=== PATIENT | female | born 1970 | race Caucasian/White ===

== ENCOUNTER → 2017-08-01 14:32 | Outpatient (CLI) | payer MEDICAID, SELFPAY ==
[2017-08-01 15:17] LABS: Amphetamine/Metha Screen,Urine Negative ng/mL (<1000); Barbiturates Screen,Urine Negative ng/mL (<200); Benzodiazepines Screen,Urine Negative ng/mL (200); Cannabinoid Screen,Urine Negative ng/mL (<50); Cocaine Screen,Urine Negative ng/g (<300); Methadone Screen,Urine Negative ng/mL (<300); Opiate Screen,Urine Positive ng/mL (<300); Phencyclidine Screen,Urine Negative ng/mL (<25)
== END ==
PROVIDERS: Visit Provider Emergency Medicine
DX: M54.9 Dorsalgia, unspecified (principal); F41.9 Anxiety disorder, unspecified
CPT/HCPCS: 80305

== ENCOUNTER → 2017-08-31 09:32 | Outpatient (REF) | payer MEDICAID, SELFPAY ==
[2017-08-31 15:34] LABS: Amphetamine/Metha Screen,Urine Negative ng/mL (<1000); Barbiturates Screen,Urine Negative ng/mL (<200); Benzodiazepines Screen,Urine Negative ng/mL (200); Cannabinoid Screen,Urine Negative ng/mL (<50); Cocaine Screen,Urine Negative ng/g (<300); Methadone Screen,Urine Negative ng/mL (<300); Opiate Screen,Urine Positive ng/mL (<300); Phencyclidine Screen,Urine Negative ng/mL (<25)
== END ==
LOC: LAB 09:32
PROVIDERS: Visit Provider Emergency Medicine
DX: Z79.899 Other long term (current) drug therapy (principal)
CPT/HCPCS: 80305

== ENCOUNTER → 2017-09-19 11:12 | Outpatient (REF) | payer MEDICAID, SELFPAY ==
[2017-09-19 15:49] LABS: Amphetamine/Metha Screen,Urine Negative ng/mL (<1000); Barbiturates Screen,Urine Negative ng/mL (<200); Benzodiazepines Screen,Urine Negative ng/mL (200); Cannabinoid Screen,Urine Negative ng/mL (<50); Cocaine Screen,Urine Negative ng/g (<300); Methadone Screen,Urine Negative ng/mL (<300); Opiate Screen,Urine Positive ng/mL (<300); Phencyclidine Screen,Urine Negative ng/mL (<25)
== END ==
LOC: LAB 11:12
PROVIDERS: Visit Provider Emergency Medicine
DX: Z79.899 Other long term (current) drug therapy (principal)
CPT/HCPCS: 80305

== ENCOUNTER → 2017-10-17 09:17 | Outpatient (REF) | payer MEDICAID, SELFPAY ==
[2017-10-17 18:54] LABS: Amphetamine/Metha Screen,Urine Negative ng/mL (<1000); Barbiturates Screen,Urine Negative ng/mL (<200); Benzodiazepines Screen,Urine Negative ng/mL (200); Cannabinoid Screen,Urine Negative ng/mL (<50); Cocaine Screen,Urine Negative ng/g (<300); Methadone Screen,Urine Negative ng/mL (<300); Opiate Screen,Urine Positive ng/mL (<300); Phencyclidine Screen,Urine Negative ng/mL (<25)
== END ==
LOC: LAB 09:17
PROVIDERS: Visit Provider Emergency Medicine
DX: Z79.899 Other long term (current) drug therapy (principal)
CPT/HCPCS: 80305

== ENCOUNTER → 2017-11-14 13:51 | Outpatient (REF) | payer MEDICAID, SELFPAY ==
[2017-11-14 15:07] LABS: Amphetamine/Metha Screen,Urine Negative ng/mL (<1000); Barbiturates Screen,Urine Negative ng/mL (<200); Benzodiazepines Screen,Urine Negative ng/mL (200); Cannabinoid Screen,Urine Negative ng/mL (<50); Cocaine Screen,Urine Negative ng/g (<300); Methadone Screen,Urine Negative ng/mL (<300); Opiate Screen,Urine Positive ng/mL (<300); Phencyclidine Screen,Urine Negative ng/mL (<25)
== END ==
LOC: LAB 13:51
PROVIDERS: Visit Provider Emergency Medicine
DX: Z79.899 Other long term (current) drug therapy (principal)
CPT/HCPCS: 80305

== ENCOUNTER → 2017-12-13 11:21 | Outpatient (REF) | payer MEDICAID, SELFPAY ==
[2017-12-14 18:06] LABS: Amphetamine/Metha Screen,Urine Negative ng/mL (<1000); Barbiturates Screen,Urine Negative ng/mL (<200); Benzodiazepines Screen,Urine Negative ng/mL (200); Cannabinoid Screen,Urine Negative ng/mL (<50); Cocaine Screen,Urine Negative ng/g (<300); Methadone Screen,Urine Negative ng/mL (<300); Opiate Screen,Urine Positive ng/mL (<300); Phencyclidine Screen,Urine Negative ng/mL (<25)
== END ==
LOC: LAB 11:21
PROVIDERS: Visit Provider Emergency Medicine
DX: M54.9 Dorsalgia, unspecified (principal); Z79.899 Other long term (current) drug therapy
CPT/HCPCS: 80305

== ENCOUNTER → 2018-01-06 09:45 | Outpatient (CLI) | payer MEDICAID, SELFPAY ==
[2018-01-06 14:50] LABS: Amphetamine/Metha Screen,Urine Negative ng/mL (<1000); Barbiturates Screen,Urine Negative ng/mL (<200); Benzodiazepines Screen,Urine Negative ng/mL (200); Cannabinoid Screen,Urine Negative ng/mL (<50); Cocaine Screen,Urine Negative ng/g (<300); Methadone Screen,Urine Negative ng/mL (<300); Opiate Screen,Urine Positive ng/mL (<300); Phencyclidine Screen,Urine Negative ng/mL (<25)
== END ==
PROVIDERS: Visit Provider Emergency Medicine
DX: Z79.899 Other long term (current) drug therapy (principal)
CPT/HCPCS: 80305

== ENCOUNTER → 2018-02-03 09:40 | Outpatient (REF) | payer MEDICAID, SELFPAY ==
[2018-02-03 14:29] LABS: Amphetamine/Metha Screen,Urine Negative ng/mL (<1000); Barbiturates Screen,Urine Negative ng/mL (<200); Benzodiazepines Screen,Urine Negative ng/mL (<200); Cannabinoid Screen,Urine Negative ng/mL (<50); Cocaine Screen,Urine Negative ng/mL (<300); Methadone Screen,Urine Negative ng/mL (<300); Opiate Screen,Urine Positive ng/mL (<300); Phencyclidine Screen,Urine Negative ng/mL (<25)
== END ==
LOC: LAB 09:40
PROVIDERS: Visit Provider Emergency Medicine
DX: Z79.899 Other long term (current) drug therapy (principal)
CPT/HCPCS: 80305

== ENCOUNTER → 2018-03-03 09:29 | Outpatient (REF) | payer MEDICAID, SELFPAY ==
[2018-03-03 14:37] LABS: Amphetamine/Metha Screen,Urine Negative ng/mL (<1000); Barbiturates Screen,Urine Negative ng/mL (<200); Benzodiazepines Screen,Urine Negative ng/mL (<200); Cannabinoid Screen,Urine Negative ng/mL (<50); Cocaine Screen,Urine Negative ng/mL (<300); Methadone Screen,Urine Negative ng/mL (<300); Opiate Screen,Urine Positive ng/mL (<300); Phencyclidine Screen,Urine Negative ng/mL (<25)
== END ==
LOC: LAB 09:29
PROVIDERS: Visit Provider Emergency Medicine
DX: M51.36 Other intervertebral disc degeneration, lumbar region (principal)
CPT/HCPCS: 80305

== ENCOUNTER → 2018-03-20 14:42 | Outpatient (CLI) | payer MEDICAID, SELFPAY ==
--- NOTE | 2018-03-20 14:46 | XR_ITS ---
XR forearm RT 2V HISTORY: Posttraumatic pain ITS.REASON: rt hand/arm injury ORDERING PHYSICIAN: Adrienne Sanders DPM PATIENT AGE: 47 years COMPARISON: None FINDINGS: No obvious fracture, dislocation, lytic change or blastic change. Normal mineralization. Unremarkable soft tissues IMPRESSION: Negative forearm
--- NOTE | 2018-03-20 14:46 | XR_ITS ---
XR hand RT min 3V HISTORY: Posttraumatic pain ITS.REASON: injury/ rt hand and arm pain ORDERING PHYSICIAN: Adrienne Sanders DPM PATIENT AGE: 47 years COMPARISON: None FINDINGS: No fracture or dislocation. No lytic or blastic change. There is normal mineralization.. The joint spaces are well-preserved. No significant degenerative/arthritic changes. No erosive changes evident.. IMPRESSION: Negative, no acute finding
== END ==
PROVIDERS: PCP Emergency Medicine; Visit Provider Podiatrist
DX: S69.91XA Unspecified injury of right wrist, hand and finger(s), initial encounter (principal); S59.911A Unspecified injury of right forearm, initial encounter
CPT/HCPCS: 73090; 73130

== ENCOUNTER → 2018-03-21 12:14 | Outpatient (REF) | payer MEDICAID, SELFPAY ==
[2018-03-21 17:07] LABS: Amphetamine/Metha Screen,Urine Negative ng/mL (<1000); Barbiturates Screen,Urine Negative ng/mL (<200); Benzodiazepines Screen,Urine Negative ng/mL (<200); Cannabinoid Screen,Urine Negative ng/mL (<50); Cocaine Screen,Urine Negative ng/mL (<300); Methadone Screen,Urine Negative ng/mL (<300); Opiate Screen,Urine Positive ng/mL (<300); Phencyclidine Screen,Urine Negative ng/mL (<25)
== END ==
LOC: LAB 12:14
PROVIDERS: Visit Provider Emergency Medicine
DX: Z79.899 Other long term (current) drug therapy (principal)
CPT/HCPCS: 80305

== ENCOUNTER → 2018-03-31 08:06 | Outpatient (REF) | payer MEDICAID, SELFPAY ==
[2018-03-31 18:43] LABS: Amphetamine/Metha Screen,Urine Negative ng/mL (<1000); Barbiturates Screen,Urine Negative ng/mL (<200); Benzodiazepines Screen,Urine Negative ng/mL (<200); Cannabinoid Screen,Urine Negative ng/mL (<50); Cocaine Screen,Urine Negative ng/mL (<300); Methadone Screen,Urine Negative ng/mL (<300); Opiate Screen,Urine Positive ng/mL (<300); Phencyclidine Screen,Urine Negative ng/mL (<25)
== END ==
LOC: LAB 08:06
PROVIDERS: Visit Provider Emergency Medicine
DX: Z79.891 Long term (current) use of opiate analgesic (principal)
CPT/HCPCS: 80305

== ENCOUNTER → 2018-04-28 09:34 | Outpatient (REF) | payer MEDICAID, SELFPAY ==
[2018-04-28 18:10] LABS: Amphetamine/Metha Screen,Urine Negative ng/mL (<1000); Barbiturates Screen,Urine Negative ng/mL (<200); Benzodiazepines Screen,Urine Negative ng/mL (<200); Cannabinoid Screen,Urine Negative ng/mL (<50); Cocaine Screen,Urine Negative ng/mL (<300); Methadone Screen,Urine Negative ng/mL (<300); Opiate Screen,Urine Positive ng/mL (<300); Phencyclidine Screen,Urine Negative ng/mL (<25)
== END ==
LOC: LAB 09:34
PROVIDERS: Visit Provider Emergency Medicine
DX: Z79.899 Other long term (current) drug therapy (principal)
CPT/HCPCS: 80305

== ENCOUNTER → 2018-05-25 16:32 | Outpatient (CLI) | payer MEDICAID, SELFPAY ==
[2018-05-26 18:28] LABS: Amphetamine/Metha Screen,Urine Negative ng/mL (<1000); Barbiturates Screen,Urine Negative ng/mL (<200); Benzodiazepines Screen,Urine Negative ng/mL (<200); Cannabinoid Screen,Urine Negative ng/mL (<50); Cocaine Screen,Urine Negative ng/mL (<300); Methadone Screen,Urine Negative ng/mL (<300); Opiate Screen,Urine Positive ng/mL (<300); Phencyclidine Screen,Urine Negative ng/mL (<25)
== END ==
PROVIDERS: PCP Emergency Medicine; Visit Provider Emergency Medicine
DX: Z79.899 Other long term (current) drug therapy (principal)
CPT/HCPCS: 80305

== ENCOUNTER → 2018-06-23 08:48 | Outpatient (CLI) | payer MEDICAID, SELFPAY ==
[2018-06-26 14:24] LABS: Amphetamine/Metha Screen,Urine Negative ng/mL (<1000); Barbiturates Screen,Urine Negative ng/mL (<200); Benzodiazepines Screen,Urine Negative ng/mL (<200); Cannabinoid Screen,Urine Negative ng/mL (<50); Cocaine Screen,Urine Negative ng/mL (<300); Methadone Screen,Urine Negative ng/mL (<300); Opiate Screen,Urine Positive ng/mL (<300); Phencyclidine Screen,Urine Negative ng/mL (<25)
== END ==
PROVIDERS: Visit Provider Emergency Medicine
DX: Z79.899 Other long term (current) drug therapy (principal)
CPT/HCPCS: 80305

== ENCOUNTER → 2018-07-19 15:20 | Outpatient (CLI) | payer MEDICAID, SELFPAY ==
[2018-07-19 16:28] LABS: Amphetamine/Metha Screen,Urine Negative ng/mL (<1000); Barbiturates Screen,Urine Negative ng/mL (<200); Benzodiazepines Screen,Urine Negative ng/mL (<200); Cannabinoid Screen,Urine Negative ng/mL (<50); Cocaine Screen,Urine Negative ng/mL (<300); Methadone Screen,Urine Negative ng/mL (<300); Opiate Screen,Urine Positive ng/mL (<300); Phencyclidine Screen,Urine Negative ng/mL (<25)
== END ==
PROVIDERS: Visit Provider Emergency Medicine
DX: Z79.899 Other long term (current) drug therapy (principal)
CPT/HCPCS: 80305

== ENCOUNTER → 2018-07-21 10:17 | Outpatient (CLI) | payer MEDICAID, SELFPAY ==
[2018-07-21 10:58] LABS: Basophils % 0.5 % (0.1-2.0); Eosinophils % 0.2 % (0.1-12.0); Hematocrit 37.1 % (37.0-47.0); Hemoglobin 11.7 g/dL (12.2-16.2); Lymphocytes # 1.7 K/mm3 (0.7-4.5); Lymphocytes % 31.4 % (10-50); Mean Corpuscular HGB Conc 31.6 g/dL (31.8-35.4); Mean Corpuscular Hemoglobin 31.2 pg (27.0-31.2); Mean Corpuscular Volume 98.6 fl (81-99); Mean Platelet Volume 6.8 fl (7.4-10.4); Monocytes # 0.3 K/mm3 (0.1-1.0); Monocytes % 4.7 % (1.7-9.3); Neutrophils # 3.4 K/mm3 (1.8-7.8); Neutrophils % 63.2 % (37.0-80.0); Platelet Count 411 K/mm3 (142-424); Red Blood Count 3.77 M/mm3 (4.20-5.40); Red Cell Distribution Width 13.3 % (11.5-17.5); White Blood Count 5.4 K/mm3 (4.8-10.8)
[2018-07-21 12:27] LABS: Alanine Aminotransferase 29 U/L (12-78); Albumin Level 3.5 gm/dL (3.4-5.0); Alkaline Phosphatase 49 U/L (46-116); Anion Gap 16.1 mEq/L (5-15); Aspartate Amino Transferase 37 U/L (15-37); Bilirubin,Total 0.4 mg/dL (0.2-1.0); Blood Urea Nitrogen 11 mg/dL (7-18); Calcium 8.7 mg/dL (8.5-10.1); Carbon Dioxide 24 mmol/L (21.0-32.0); Chloride 100 mmol/L (98-107); Chol/HDL Ratio 2.1 (1-3.5); Cholesterol 210 mg/dL (140-200); Estimated Glomerular Filt Rate 90 ml/min (>60); Free T4 (Free Thyroxine) 0.82 ng/dl (0.76-1.46); GFR (African American) 109 ML/MIN (>60); Globulin 3.6 gm/dl (1.3-3.2); Glucose 127 mg/dL (74-106); HDL Cholesterol 98 mg/dL (29-89); LDL Cholesterol 100 mg/dL (0-130); Potassium 4.1 mmoL/L (3.5-5.1); Sodium 136 mmol/L (136-145); Thyroid Stimulating Hormone 1.22 uIU/ml (0.358-3.740); Total Protein,Serum 7.1 gm/dL (6.4-8.2); Triglycerides 59 mg/dL (30-200); VLDL Cholesterol 12 mg/dL (0-40)
[2018-07-22 10:58] LABS: Vitamin D 25 Hydroxy 7.4 ng/mL (30.0-100.0)
== END ==
PROVIDERS: Visit Provider Emergency Medicine
DX: M79.7 Fibromyalgia (principal)
CPT/HCPCS: 36415; 80053; 80061; 82652; 84439; 84443; 85025

== ENCOUNTER → 2018-07-26 12:15 | Outpatient (CLI) | payer MEDICAID, SELFPAY ==
[2018-07-26 13:11] LABS: Hemoglobin A1C 4.7 % (0.0-7.0)
== END ==
PROVIDERS: Visit Provider Physician Assistant
DX: R73.9 Hyperglycemia, unspecified (principal)
CPT/HCPCS: 36415; 83036

== ENCOUNTER → 2018-08-08 12:47 | Outpatient (CLI) | payer MEDICAID, SELFPAY ==
--- NOTE | 2018-08-08 12:53 | XR_ITS ---
XR foot wt bearing RT 3V HISTORY: ITS.REASON: pain ORDERING PHYSICIAN: Adrienne Sanders DPM PATIENT AGE: 47 years COMPARISON: None FINDINGS: No fracture or dislocation. No lytic or blastic change. There is normal mineralization.. The joint spaces are well-preserved. No significant degenerative/arthritic changes. No erosive changes evident. IMPRESSION: Negative, no acute finding
--- NOTE | 2018-08-08 12:53 | XR_ITS ---
XR foot wt bearing LT 3V HISTORY: ITS.REASON: pain ORDERING PHYSICIAN: Adrienne Sanders DPM PATIENT AGE: 47 years COMPARISON: None FINDINGS: No fracture or dislocation. No lytic or blastic change. There is normal mineralization.. The joint spaces are well-preserved. No significant degenerative/arthritic changes. No erosive changes evident. IMPRESSION: Negative, no acute finding
== END ==
PROVIDERS: PCP Emergency Medicine; Visit Provider Podiatrist
DX: M79.672 Pain in left foot (principal); M79.671 Pain in right foot
CPT/HCPCS: 73630

== ENCOUNTER → 2018-08-11 09:38 | Outpatient (CLI) | payer MEDICAID, SELFPAY ==
--- NOTE | 2018-08-11 09:41 | MM_ITS ---
MM Dig screening mamm BI w/CAD ORDERING PHYSICIAN : Murali Cole MD PATIENT AGE: 47 years GENDER: Female COMPARISON:. Previous digital mammograms including May 2017Au2015, INDICATION: ITS.REASON: SCREENING takes control pills. No new complaints. Family history. Mother and grandmother with breast cancer. TECHNIQUE: Standard CC and MLO images were obtained. R2 CAD reviewed. Additional right MLO nipple profile view included FINDINGS: Minimal residual fibroglandular elements with relatively lower breast bilaterally.. No dominant mass nor suspicious calcifications either breast. No architectural distortion No areas of significant concern. RIGHT BREAST:Stable appearance. The slight increased density at the lateral retroareolar region on cc view is similar to previous studies and dissipates on the MLO view. LEFT BREAST:No new areas of concern IMPRESSION: Stable bilateral mammogram with no significant new findings. Bilateral follow-up in one year recommended. BI-RADS Category: 1 Negative RECOMMENDED FOLLOW-UP: 1YR 1 YEAR FOLLOW-UP
--- NOTE | 2018-08-11 09:41 | US_ITS ---
US transvaginal ] Transvaginal Ultrasound & Transabdominal ultrasound pelvis performed Ordering Physician: Murali Cole MD Patient Age: 47 years: Female HISTORY: ITS.REASON: PELVIC PAIN heavy periods. Pelvic pain. TECHNIQUE: Transvaginal and transabdominal pelvic ultrasound. Performed COMPARISON :September 2016 FINDINGS Uterus measures are as 7.9 cm length as 4.4 cm x 4 cm wide. Endometrial stripe measures less than 4 mm AP Enlarging Solid mass reflecting Uterine fibroid measures up to 3 cm x 2.9 cm on today's study.-this arises from the anterior aspect of the body of uterus.. It was seen in 2017 (at which time it measured up to 1.2 cm maximally), but has enlarged significantly in the interval. Ovaries difficult to visualize but appear WNL. Normal in size bilaterally.. Left ovary 1.9 x 0.8 x 1.7 cm Right ovary 1.9 x 1.1 x 1.8 cm. No fluid in cul-de-sac A transabdominal and transvaginal scanning were performed to further verify and visualize the ovaries. No other a adnexal masses encountered IMPRESSION: 1....... There is a now 3 cm uterine fibroid extending from the anterior myometrium . This has enlarged since 2017 2.. Ovaries appear small normal size. No adnexal masses. No fluid in cul-de-sac
== END ==
PROVIDERS: PCP Emergency Medicine; Visit Provider Obstetrics & Gynecology
DX: Z12.31 Encounter for screening mammogram for malignant neoplasm of breast (principal); R10.2 Pelvic and perineal pain
CPT/HCPCS: 76830; 77067

== ENCOUNTER → 2018-08-31 11:01 | Outpatient (CLI) | payer MEDICAID, SELFPAY ==
[2018-08-31 11:05] LABS: Microscopic, Urine URINE MICROSCOPIC (MICROSCOPIC)
[2018-08-31 11:23] LABS: Basophils % 0.4 % (0.1-2.0); Eosinophils % 0.4 % (0.1-12.0); Hematocrit 36.7 % (37.0-47.0); Hemoglobin 11.5 g/dL (12.2-16.2); Lymphocytes # 2.1 K/mm3 (0.7-4.5); Lymphocytes % 39.4 % (10-50); Mean Corpuscular HGB Conc 31.4 g/dL (31.8-35.4); Mean Corpuscular Hemoglobin 30.9 pg (27.0-31.2); Mean Corpuscular Volume 98.5 fl (81-99); Mean Platelet Volume 6.3 fl (7.4-10.4); Monocytes # 0.3 K/mm3 (0.1-1.0); Monocytes % 4.7 % (1.7-9.3); Neutrophils # 2.9 K/mm3 (1.8-7.8); Neutrophils % 55.1 % (37.0-80.0); Platelet Count 467 K/mm3 (142-424); Red Blood Count 3.72 M/mm3 (4.20-5.40); Red Cell Distribution Width 13.4 % (11.5-17.5); White Blood Count 5.3 K/mm3 (4.8-10.8)
[2018-08-31 11:30] LABS: Appearance,Urine CLEAR (Clear); Bilirubin,Urine Negative (Negative); Blood, Urine Negative (Negative); Color,Urine STRAW (Yellow); Glucose,Urine (UA) Negative (Negative); Ketones,Urine Negative (Negative); Leukocyte Esterase,Urine Negative (Negative); Nitrate,Urine Negative (Negative); Protein,Urine Negative (Negative); Specific Gravity, Urine <= 1.005 (1.005-1.030); Urobilinogen,Urine 0.2 EU/dl (0.2)
[2018-08-31 11:54] LABS: Bacteria,Urine Trace /lpf; WBC,Urine Occasional #/hpf (0-3)
[2018-08-31 12:39] LABS: HCG Qualitative, Serum Negative (Negative)
[2018-08-31 12:40] LABS: Alanine Aminotransferase 30 U/L (12-78); Albumin Level 3.6 gm/dL (3.4-5.0); Albumin/Globulin Ratio 0.9 (1.1-1.8); Alkaline Phosphatase 63 U/L (46-116); Anion Gap 15.3 mEq/L (5-15); Aspartate Amino Transferase 41 U/L (15-37); Bilirubin,Total 0.7 mg/dL (0.2-1.0); Blood Urea Nitrogen 7 mg/dL (7-18); Calcium 8.9 mg/dL (8.5-10.1); Carbon Dioxide 24 mmol/L (21.0-32.0); Chloride 97 mmol/L (98-107); Creatinine,Serum 0.58 mg/dL (0.55-1.02); Estimated Glomerular Filt Rate 112 ml/min (>60); GFR (African American) 135 ML/MIN (>60); Globulin 3.8 gm/dl (1.3-3.2); Glucose 101 mg/dL (74-106); Potassium 4.3 mmoL/L (3.5-5.1); Sodium 132 mmol/L (136-145); Total Protein,Serum 7.4 gm/dL (6.4-8.2)
== END ==
PROVIDERS: Visit Provider Obstetrics & Gynecology
DX: Z01.818 Encounter for other preprocedural examination (principal); N80.9 Endometriosis, unspecified; R10.2 Pelvic and perineal pain
CPT/HCPCS: 36415; 80053; 81001; 84703; 85025

== ENCOUNTER 2018-09-04 06:13 | Observation (INO) ==
--- NOTE | 2018-09-04 08:24 | Operative Note ---
Date of procedure: 09/04/18 Pre-op Diagnosis:: 1. Dysfunctional uterine bleeding. 2. Pelvic pain. 3. Leiomyoma uteri. Post-op Diagnosis:: 1. Dysfunctional uterine bleeding. 2. Pelvic pain. 3. Leiomyoma uteri. Procedure performed:: Total vaginal hysterectomy, bilateral salpingo-oophorectomy, enterocele repair. Surgeon:: Murali Cole MD Computing Systems Mechanic(s):: Dr. Hidalgo SENIOR DIRECTOR:: Other (Ajay Bray CRNA) Estimated blood loss (mL): 200 Operative findings:: 1. Leiomyoma uteri. 2. Enterocele. Operative note:: After the patient was prepped and draped in usual fashion and general anesthesia was administered, examination under anesthesia revealed an irregular slightly enlarged uterus, with no adnexal masses. A weighted speculum was placed within the posterior fourchette of the vagina, and the cervix was grasped with a double-tooth tenaculum, and retracted toward the introitus. The cervix was circumcised with a knife, and the vaginal mucosa was sharply and bluntly dissected free. A posterior colpotomy incision was made with Ruben scissors, and the long lip of the weighted speculum was placed within the posterior peritoneum. The uterosacral ligaments on either side were Ervin, cut, and Ervin suture with #1 Vicryl, as were the cardinal ligaments and uterine vessels. The peritoneum was entered anteriorly with Ruben scissors, and a long right angle tract was placed within it. The myomatous uterus was flipped anteriorly, and the ovarian pedicles were crossclamped and cut, thus removing the uterine specimen. These pedicles were Ervin sutured, and then free tied with #1 Vicryl. Each ovary was atrophic. The tube and ovary on each side was grasped Angella clamp, and the infundibulopelvic ligament on each side was crossclamped and cut, thus removing both adnexa. These pedicles were Ervin sutured, and then free tied with #1 Vicryl. The pedicles were inspected, and there was no undue bleeding. The posterior vaginal cuff was run unlocked with #1 Vicryl, to include the uterosacral ligament pedicles and a Hugo fashion, to reduce the enterocele. The anterior peritoneum was grasped with a long Allis clamp, and closed with a running pursestring suture of 0 Vicryl, and pulled tight. The vaginal cuff was closed with an anteroposterior running locked suture of #1. The urine was clear in the Armando catheter. The sponge and needle counts correct. The estimated blood loss was 200 cc. The patient tolerated the procedure well, and was taken to PACU in excellent condition. She will receive Delestrogen 30 mg IM in PACU. Condition: stable Disposition: PACU Specimens:: 1. Uterus. 2. Bilateral adnexa. Complications:: None
--- NOTE | 2018-09-04 08:34 | Progress Note ---
[facility] Anesthesia Checklist - Patient Identification Patient Identification: Arm Band, Verbal (Name & ) - Structural Data Admitted From: Home Planned Operative Procedure/s: TVH, BSO Consent for Planned Operative Procedure(s) Verified: Yes Verified Documents: Surgical Consent, History and Physical - NPO Status Verified Time NPO: 00:00 - Chart Verification Results Verified: CBC, HCG - Additional verifications Patient : No Anesthesia Reactions: No - Airway Assessment C-Spine Mobility Assessed: Yes TMJ Mobility Assessed: Yes Dentition: Poor Dentition - Neurological Assessment Level of Consciousness: Awake Hx Seizures: No Numbness or tingling in extremities: No - Anesthesia Plan Anesthesia Risk discussed: Yes Anesthesia Plan: Verified ASA Class: III Anesthesia Type: General [facility] History I have reviewed the patient's past medical history: Yes Medical History: Reports:: Anxiety, Depression, Gastroesophageal Reflux Disease(GERD), Hypertension Denies:: Cancer, Diabetes Mellitus Type 1, Diabetes Mellitus Type 2, Internal Pacemaker, MRSA, Seizures Have you ever received a pneumonia vaccine?: No Have you received a flu vaccine this season?: No Other Medical History: Reports: Fibromyalgia, Hypothyroidism. Denies: Blood Transfusion Reaction Other Surgeries: Yes: Diagnostic Lap, Hysterectomy-Total, Other. No: Pacemaker Amputation: No Fractures: No - *Social History Educational Level: Attended High School Smoking Status: Former smoker Tobacco Type: smokeless tobacco (Used this morning) # Packs/Day (cigarettes): 1 Alcohol Intake: never Alcohol Intake Frequency:: other Substance Use Type: denies use Occupational Status: unemployed Housing: house Household Members: other Travel in the last 8 weeks: None - Psychiatric History Expresses thoughts of harming self/others: None Suicide Plan Description: No Plan Pschychiatric History:: Reports:: Anxiety, Depression Family Hx:: Thyroid Disorder, Diabetes
--- NOTE | 2018-09-04 08:34 | Progress Note ---
[facility] Anesthesia Record Part I Intake, IV Amount: 900 Estimated blood loss (mL): 200 Urine output (mL): 50 Blood Products used (#): none Blood Pressure: 122/74 SaO2: 98 Pulse Rate: 98 Respiratory Rate: 12 Temperature: 98.2 F Patient is:: Awake, Stable Stable to PACU at:: 08:30
--- NOTE | 2018-09-04 08:35 | Progress Note ---
[facility] Anesthesia Record Part II Discharge Time: 09:00 Destination: Medical Surgical Department PACU nurse assessment reviewed?: Yes Patient Condition:: Good Anesthesia Complications:: None Swallowing reflex intact?: Yes Cyanosis?: No
[2018-09-04 10:05] LABS: Hematocrit 35.8 % (37.0-47.0); Hemoglobin 11.3 g/dL (12.2-16.2)
--- NOTE | 2018-09-04 14:48 | Progress Note ---
Internal Medicine - PN: Subj *Date: 09/04/18 *Time: 14:48 Interval history: This is day of surgery. Surgery has been explained to the patient. She is afebrile. Her vital signs are stable. Her abdomen is soft. Her Armando has been removed, but she has not yet voided. Impression: Stable. Exam Vital signs and Labs for Last 24 Hours: Temp Pulse Resp BP Pulse Ox 98.0 F 117 H 18 155/82 H 98 09/04/18 14:20 09/04/18 14:20 09/04/18 14:20 09/04/18 14:20 09/04/18 14:20 Laboratory Results - last 24 hr 09/04/18 07:20: Urine Color Yellow, Urine Appearance Clear, Urine pH 5.5, Ur Specific [place] >= 1.030, Urine Protein Negative, Urine Glucose (UA) Negative, Urine Ketones Negative, Urine Blood Negative, Urine Nitrate Negative, Urine Bilirubin Negative, Urine Urobilinogen 0.2, Ur Leukocyte Esterase Negative, Urine WBC 3-5, Ur Squamous Epith Cells 5-10, Urine Bacteria 2+ A 09/04/18 09:40: Hgb 11.3 L, Hct 35.8 L I & O for Last 24 hours: Intake & Output 09/02/18 09/03/18 09/04/18 09/05/18 11:59 11:59 11:59 11:59 Intake Total 1100 / 1100 Output Total 800 / 800 Balance 1100 / 1100 -800 / -800 Weight 288 lb 12.889 oz 134 lb
--- NOTE | 2018-09-04 20:53 | Pharmacy Consult Notes ---
[facility] Pharmacy VTE Monitoring - Patient Demographics Admission date: 09/04/18 Report Date: 09/04/18 Time: 20:53 Allergies/Adverse Reactions: Patient Allergies codeine [CODEINE] Allergy (Unknown, Verified 08/31/18 10:32) VOMITING erythromycin base [ERYTHROMYCIN BASE] Allergy (Unknown, Verified 08/31/18 10:32) ITCHING/HIVES Penicillins [PENICILLINS] Allergy (Unknown, Verified 08/31/18 10:32) VOMITING Height: 1.57 m Weight: 60.781 kg - VTE Risk Labs: VTE Related Lab Results Hgb 11.3 g/dL (12.2-16.2) L 09/04/18 09:40 Hct 35.8 % (37.0-47.0) L 09/04/18 09:40 Clinical Trial Participant: No - Prophylaxis VTE Prophylaxis Ordered?: Yes Types of VTE Prophylaxis: IPCS Knee High (POST OP)
--- NOTE | 2018-09-05 06:16 | Progress Note ---
Internal Medicine - PN: Subj *Date: 09/05/18 *Time: 06:15 Interval history: This is postop day #1. The patient is afebrile. Her vital signs are stable. Abdomen soft. Voiding well. Complaining of pain, but more pain medication in the past 6 hours. She will be discharged today. Exam Vital signs and Labs for Last 24 Hours: Temp Pulse Resp BP Pulse Ox 98.5 F 109 H 17 149/78 H 98 09/05/18 04:00 09/05/18 04:00 09/05/18 04:00 09/05/18 04:00 09/05/18 04:00 Laboratory Results - last 24 hr 09/04/18 07:20: Urine Color Yellow, Urine Appearance Clear, Urine pH 5.5, Ur Specific [place] >= 1.030, Urine Protein Negative, Urine Glucose (UA) Negative, Urine Ketones Negative, Urine Blood Negative, Urine Nitrate Negative, Urine Bilirubin Negative, Urine Urobilinogen 0.2, Ur Leukocyte Esterase Negative, Ur ine WBC 3-5, Ur Squamous Epith Cells 5-10, Urine Bacteria 2+ A 09/04/18 09:40: Hgb 11.3 L, Hct 35.8 L I & O for Last 24 hours: Intake & Output 09/02/18 09/03/18 09/04/18 09/05/18 11:59 11:59 11:59 11:59 Intake Total 1100 / 1100 2407 / 2407 Output Total 1900 / 1900 Balance 1100 / 1100 507 / 507 Weight 288 lb 12.889 oz 134 lb 134 lb
--- NOTE | 2018-09-05 06:18 | Discharge Summary ---
General - General Admission date:: 09/04/18 Discharge date: 09/05/18 (This 47-year-old white female was admitted for definitive treatment of dysfunctional uterine bleeding, pelvic pain, and leiomyomata uteri. On the date of admission, she was taken to the operating room, where she underwent a total vaginal hysterectomy and bilateral salpingo- oophorectomy, without complications. Her hemoglobin on admission was 11.5 g; postoperatively it is 11.3 g. Postoperatively, the patient is done well. She received Delestrogen 30 mg IM in PACU. She is eating and ambulating, and voiding well. Her abdomen is soft. She is discharged home on Dilaudid 1 mg p.o. every 4-6 hours as needed pain (#30). She is given appropriate instructions as to diet and exercise, and she is to return the office in 2 weeks for follow-up. She is not a smoker but chews tobacco.) Objective Vital signs: Temp Pulse Resp BP Pulse Ox 98.5 F 109 H 17 149/78 H 98 09/05/18 04:00 09/05/18 04:00 09/05/18 04:00 09/05/18 04:00 09/05/18 04:00 Results Labs on day of discharge: Labs from last 24 hours 09/04/18 09/04/18 09:40 07:20 Hgb 11.3 L Hct 35.8 L Urine Color Yellow Urine Appearance Clear Urine pH 5.5 Ur Specific [place] >= 1.030 Urine Protein Negative Urine Glucose (UA) Negative Urine Ketones Negative Urine Blood Negative Urine Nitrate Negative Urine Bilirubin Negative Urine Urobilinogen 0.2 Ur Leukocyte Esterase Negative Urine WBC 3-5 Ur Squamous Epith Cells 5-10 Urine Bacteria 2+ A Discharge Plan - Patient Discharge Instructions - Follow up Plan Home Medications: Home Medications Medication Instructions Recorded Confirmed Type escitalopram 10 mg tablet 10 mg PO QDAY 08/01/17 09/01/18 History diphenhydramine 25 mg capsule 25 mg PO Q4-6H PRN #60 cap 06/23/18 09/01/18 Rx benzonatate 100 mg capsule 100 mg PO TID PRN #30 cap 07/06/18 09/01/18 Rx hydrocodone 7.5 mg-acetaminophen 1 tab PO QID PRN #120 tab 07/19/18 09/01/18 Rx 325 mg tablet Famotidine [Acid Senior Cytogenetic Technologist] 20 mg PO BID 09/01/18 09/01/18 History Fluticasone Propionate 1 spray INTRANASAL QDAY 09/01/18 09/01/18 History Gabapentin [Gabapentin 800mg Tab] 800 mg PO TID 09/01/18 09/01/18 History Levothyroxine Sodium [Tirosint] 25 mcg PO DAILY 09/01/18 09/01/18 History Norethindrone-Ethinyl Estrad 1 tab PO DAILY 09/01/18 09/01/18 History [Pirmella Tablet] clonazePAM [Clonazepam] 0.5 mg PO BID 09/01/18 09/01/18 History Prescriptions/Medication Reconciliation: No Action escitalopram 10 mg tablet 10 mg PO QDAY diphenhydramine 25 mg capsule 25 mg PO Q4-6H PRN #60 cap PRN Reason: allergy symptoms benzonatate 100 mg capsule 100 mg PO TID PRN #30 cap PRN Reason: cough hydrocodone 7.5 mg-acetaminophen 325 mg tablet 1 tab PO QID PRN #120 tab PRN Reason: pain clonazePAM [Clonazepam] 0.5 mg PO BID Levothyroxine Sodium [Tirosint] 25 mcg PO DAILY Famotidine [Acid Senior Cytogenetic Technologist] 20 mg PO BID Gabapentin [Gabapentin 800mg Tab] 800 mg PO TID Fluticasone Propionate 1 spray INTRANASAL QDAY Norethindrone-Ethinyl Estrad [Pirmella Tablet] 1 tab PO DAILY
== END 2018-09-05 08:10 | disposition home or self-care (01) ==
LOC: OR 06:13 → OB 06:13
PROVIDERS: ADMIT Obstetrics & Gynecology; ATTEND Obstetrics & Gynecology
CPT/HCPCS: 36415; 81001; 85014; 85018; 87086; 96372; 96374; G0378; J2405; J2710; S0077

== ENCOUNTER → 2018-09-13 14:29 | Outpatient (CLI) | payer MEDICAID, SELFPAY ==
[2018-09-13 16:01] LABS: Amphetamine/Metha Screen,Urine Negative ng/mL (<1000); Barbiturates Screen,Urine Negative ng/mL (<200); Benzodiazepines Screen,Urine Negative ng/mL (<200); Cannabinoid Screen,Urine Negative ng/mL (<50); Cocaine Screen,Urine Negative ng/mL (<300); Methadone Screen,Urine Negative ng/mL (<300); Opiate Screen,Urine Positive ng/mL (<300); Phencyclidine Screen,Urine Negative ng/mL (<25)
== END ==
PROVIDERS: Visit Provider Emergency Medicine
DX: Z79.899 Other long term (current) drug therapy (principal)
CPT/HCPCS: 80305

== ENCOUNTER → 2018-10-11 13:36 | Outpatient (CLI) | payer MEDICAID, SELFPAY ==
[2018-10-11 15:19] LABS: Amphetamine/Metha Screen,Urine Negative ng/mL (<1000); Barbiturates Screen,Urine Negative ng/mL (<200); Benzodiazepines Screen,Urine Negative ng/mL (<200); Cannabinoid Screen,Urine Negative ng/mL (<50); Cocaine Screen,Urine Negative ng/mL (<300); Methadone Screen,Urine Negative ng/mL (<300); Opiate Screen,Urine Positive ng/mL (<300); Phencyclidine Screen,Urine Negative ng/mL (<25)
== END ==
PROVIDERS: Visit Provider Emergency Medicine
DX: N39.0 Urinary tract infection, site not specified (principal); Z79.899 Other long term (current) drug therapy
CPT/HCPCS: 80305; 87086; 87088; 87186

== ENCOUNTER → 2018-12-05 14:12 | Outpatient (CLI) | payer MEDICAID, SELFPAY ==
[2018-12-05 16:19] LABS: Amphetamine/Metha Screen,Urine Negative ng/mL (<1000); Barbiturates Screen,Urine Negative ng/mL (<200); Benzodiazepines Screen,Urine Negative ng/mL (<200); Cannabinoid Screen,Urine Negative ng/mL (<50); Cocaine Screen,Urine Negative ng/mL (<300); Methadone Screen,Urine Negative ng/mL (<300); Opiate Screen,Urine Positive ng/mL (<300); Phencyclidine Screen,Urine Negative ng/mL (<25)
== END ==
PROVIDERS: Visit Provider Nurse Practitioner Family
DX: M54.9 Dorsalgia, unspecified (principal); Z79.899 Other long term (current) drug therapy
CPT/HCPCS: 80305

== ENCOUNTER → 2019-01-03 17:52 | Outpatient (CLI) | payer MEDICAID, SELFPAY ==
[2019-01-03 19:21] LABS: Amphetamine/Metha Screen,Urine Negative ng/mL (<1000); Barbiturates Screen,Urine Negative ng/mL (<200); Benzodiazepines Screen,Urine Negative ng/mL (<200); Cannabinoid Screen,Urine Negative ng/mL (<50); Cocaine Screen,Urine Negative ng/mL (<300); Methadone Screen,Urine Negative ng/mL (<300); Opiate Screen,Urine Positive ng/mL (<300); Phencyclidine Screen,Urine Negative ng/mL (<25)
== END ==
PROVIDERS: Visit Provider Emergency Medicine
DX: M51.16 Intervertebral disc disorders with radiculopathy, lumbar region (principal)
CPT/HCPCS: 80305

== ENCOUNTER → 2019-02-05 14:30 | Outpatient (POV) | payer MEDICAID, SELFPAY | PROVIDERS: Visit Provider Specialist | DX: M79.641 Pain in right hand (principal); R20.0 Anesthesia of skin; R20.2 Paresthesia of skin | CPT/HCPCS: 95886; 95908 ==

== ENCOUNTER → 2019-03-02 14:06 | Outpatient (CLI) | payer MEDICAID, SELFPAY ==
[2019-03-02 14:40] LABS: Amphetamine/Metha Screen,Urine Negative ng/mL (<1000); Barbiturates Screen,Urine Negative ng/mL (<200); Benzodiazepines Screen,Urine Negative ng/mL (<200); Cannabinoid Screen,Urine Positive ng/mL (<50); Cocaine Screen,Urine Negative ng/mL (<300); Methadone Screen,Urine Negative ng/mL (<300); Opiate Screen,Urine Positive ng/mL (<300); Phencyclidine Screen,Urine Negative ng/mL (<25)
== END ==
PROVIDERS: Visit Provider Emergency Medicine
DX: Z79.899 Other long term (current) drug therapy (principal)
CPT/HCPCS: 80305

== ENCOUNTER → 2019-03-22 09:12 | Outpatient (CLI) | payer MEDICAID, SELFPAY ==
--- NOTE | 2019-03-22 09:18 | CT_ITS ---
PROCEDURE: CT ABDOMEN PELVIS WO CON CLINICAL HISTORY: abdominal pain Mid abdominal pain with nausea and vomiting for 2-3 months COMPARISON: No exams were available for comparison TECHNIQUE: Axial images obtained with sagittal and coronal reformats. All CT scans at the facility use one or more dose reduction, viz: automated exposure control, ma/kV adjustment per patient size (including targeted exams where dose is matched to indication, i.e. head), or iterative reconstruction technique. FINDINGS: Lung bases are clear. The liver, spleen, adrenal glands, pancreas, and kidneys have an unremarkable appearance. No renal or ureteral calculi. No calcified gallstones. No evidence of appendicitis, intestinal obstruction, or free air. No pelvic mass or abnormal fluid collection. There has been a prior hysterectomy. No acute bony findings. IMPRESSION: No acute finding. Dictated by: José Miguel Salazar MD 03/23/2019 10:12 Signed by: <Electronically signed by José Miguel Salazar MD in [facility]> 03/23/2019 10:12
== END ==
PROVIDERS: PCP Emergency Medicine; Visit Provider Surgery
DX: R10.9 Unspecified abdominal pain (principal)
CPT/HCPCS: 74176

== ENCOUNTER → 2019-03-22 09:41 | Outpatient (CLI) | payer MEDICAID, SELFPAY ==
[2019-03-22 12:02] LABS: Free T4 (Free Thyroxine) 0.84 ng/dl (0.76-1.46); Thyroid Stimulating Hormone 1.22 uIU/ml (0.358-3.740); Uric Acid 4.6 mg/dL (2.6-7.2)
[2019-03-22 12:30] LABS: Erythrocyte Sedimentation Rate 14 mm/hr (0-20)
[2019-03-24 22:26] LABS: Antinuclear Antibodies, IFA Positive (.); RA Latex Turbid. <10.0 IU/mL (0.0-13.9)
== END ==
PROVIDERS: Visit Provider Emergency Medicine
DX: R20.2 Paresthesia of skin (principal); E03.9 Hypothyroidism, unspecified
CPT/HCPCS: 36415; 84439; 84443; 84550; 85651; 86038; 86431

== ENCOUNTER → 2019-04-06 10:15 | Outpatient (CLI) | payer MEDICAID, SELFPAY ==
--- NOTE | 2019-04-06 10:18 | XR_ITS ---
PROCEDURE: XR HAND LT MIN 3V CLINICAL INDICATION: Zen thumb pain Thumb pain COMPARISON: [id number] XR hand RT min 3V from 03/20/2018 XR HAND RT MIN 3V from 04/06/2019 FINDINGS: No fracture or dislocation. No lytic or blastic change. There is normal mineralization. The joint spaces are well-preserved. No significant degenerative/arthritic changes. No erosive changes evident. Other findings:None. IMPRESSION: Negative left hand.. Dictated by: José Miguel Salazar MD 04/06/2019 10:43 Electronically signed by José Miguel Salazar MD in [facility] 04/06/2019 10:43
--- NOTE | 2019-04-06 10:18 | XR_ITS ---
PROCEDURE: XR HAND RT MIN 3V CLINICAL INDICATION: Zen thumb pain COMPARISON: [id number] XR hand RT min 3V from 03/20/2018 FINDINGS: No fracture or dislocation. No lytic or blastic change. There is normal mineralization. The joint spaces are well-preserved. No significant degenerative/arthritic changes. No erosive changes evident. Other findings:None. IMPRESSION: Negative right hand. No significant change from 03/20/2018 Dictated by: José Miguel Salazar MD 04/06/2019 10:42 Electronically signed by José Miguel Salazar MD in [facility] 04/06/2019 10:42
== END ==
PROVIDERS: PCP Emergency Medicine; Visit Provider Orthopaedic Surgery
DX: M79.644 Pain in right finger(s) (principal); M79.645 Pain in left finger(s)
CPT/HCPCS: 73130

== ENCOUNTER → 2019-04-25 16:49 | Outpatient (CLI) | payer MEDICAID, SELFPAY ==
[2019-04-25 20:55] LABS: Amphetamine/Metha Screen,Urine Negative ng/mL (<1000); Barbiturates Screen,Urine Negative ng/mL (<200); Benzodiazepines Screen,Urine Negative ng/mL (<200); Cannabinoid Screen,Urine Positive ng/mL (<50); Cocaine Screen,Urine Negative ng/mL (<300); Methadone Screen,Urine Negative ng/mL (<300); Opiate Screen,Urine Positive ng/mL (<300); Phencyclidine Screen,Urine Negative ng/mL (<25)
== END ==
PROVIDERS: Visit Provider Emergency Medicine
DX: Z79.899 Other long term (current) drug therapy (principal)
CPT/HCPCS: 80305

== ENCOUNTER → 2019-06-20 13:29 | Outpatient (CLI) | payer MEDICAID, SELFPAY ==
[2019-06-20 17:12] LABS: Amphetamine/Metha Screen,Urine Negative ng/mL (<1000); Barbiturates Screen,Urine Negative ng/mL (<200); Benzodiazepines Screen,Urine Negative ng/mL (<200); Cannabinoid Screen,Urine Positive ng/mL (<50); Cocaine Screen,Urine Negative ng/mL (<300); Methadone Screen,Urine Negative ng/mL (<300); Opiate Screen,Urine Positive ng/mL (<300); Phencyclidine Screen,Urine Negative ng/mL (<25)
== END ==
PROVIDERS: Visit Provider Emergency Medicine
DX: Z79.899 Other long term (current) drug therapy (principal)
CPT/HCPCS: 80305

== ENCOUNTER → 2019-06-27 15:04 | Outpatient (CLI) | payer MEDICAID, SELFPAY ==
--- NOTE | 2019-06-27 15:10 | XR_ITS ---
PROCEDURE: XR FOREARM LT 2V CLINICAL INDICATION: arm pain COMPARISON: No exams were available for comparison FINDINGS: No fracture or dislocation. No lytic or blastic change. There is normal mineralization. The joint spaces are well-preserved. No significant degenerative/arthritic changes. No erosive changes evident. Other findings:None. IMPRESSION: No acute findings. Dictated by: Dr. Kal Cross MD 06/27/2019 17:[address] Kal Cross MD in [facility] 06/27/2019 17:22
--- NOTE | 2019-06-27 15:10 | XR_ITS ---
PROCEDURE: XR FOREARM RT 2V CLINICAL INDICATION: arm pain COMPARISON: XR FOREARM LT 2V from 06/27/2019 FINDINGS: No fracture or dislocation. No lytic or blastic change. There is normal mineralization. The joint spaces are well-preserved. No significant degenerative/arthritic changes. No erosive changes evident. Other findings:None. IMPRESSION: No acute findings. Dictated by: Dr. Kal Cross MD 06/27/2019 17:[address] Kal Cross MD in [facility] 06/27/2019 17:22
--- NOTE | 2019-06-27 15:10 | XR_ITS ---
PROCEDURE: XR SHOULDER LT MIN 2V CLINICAL INDICATION: shoulder pain COMPARISON: Right shoulder same date FINDINGS: The clavicle is intact and the AC joint appears normal. The humeral head and glenoid appear normal. There are no soft tissue calcifications there is a slightly lateral downsloping acromion process but there is no significant subacromial stenosis. IMPRESSION: No acute findings. Dictated by: Dr. Kal Cross MD 06/27/2019 17:[address] Kal Cross MD in [facility] 06/27/2019 17:23
--- NOTE | 2019-06-27 15:10 | XR_ITS ---
PROCEDURE: XR SHOULDER RT MIN 2V CLINICAL INDICATION: shoulder pain Bilateral shoulder and arm pain, history of previous traumatic injuries COMPARISON: Left shoulder same date FINDINGS: The clavicle is intact and the AC joint appears normal. The humeral head and glenoid are normal. There are no soft tissue calcifications. IMPRESSION: Negative right shoulder Dictated by: Dr. Kal Cross MD 06/27/2019 17:[address] Kal Cross MD in [facility] 06/27/2019 17:19
--- NOTE | 2019-06-27 15:10 | XR_ITS ---
PROCEDURE: XR CERVICAL SPINE 3V CLINICAL INDICATION: neck pain COMPARISON: No exams were available for comparison FINDINGS: C1 through C7 appear intact. There is some straightening of the normal curvature suggesting possible muscle spasm. There is moderate disc space narrowing at the C5-6 level with anterior osteophytic spurring noted. The remaining disc spaces appear normal. The prevertebral soft tissues are normal and the odontoid is normal. The apophyseal joints appear normal. IMPRESSION: Moderate degenerate disc disease C5-6 otherwise essentially unremarkable study Dictated by: Dr. Kal Cross MD 06/27/2019 17:[address] Kal Cross MD in [facility] 06/27/2019 17:25
--- NOTE | 2019-06-27 15:10 | XR_ITS ---
PROCEDURE: XR HAND RT MIN 3V CLINICAL INDICATION: hand pain COMPARISON: XR HAND LT MIN 3V from 06/27/2019 FINDINGS: No fracture or dislocation. No lytic or blastic change. There is normal mineralization. The joint spaces are well-preserved. No significant degenerative/arthritic changes. No erosive changes evident. Other findings:None. IMPRESSION: No acute findings. Dictated by: Dr. Kal Cross MD 06/27/2019 17:[address] Kal Cross MD in [facility] 06/27/2019 17:20
--- NOTE | 2019-06-27 15:10 | XR_ITS ---
PROCEDURE: XR HAND LT MIN 3V CLINICAL INDICATION: hand pain COMPARISON: No exams were available for comparison FINDINGS: No fracture or dislocation. No lytic or blastic change. There is normal mineralization. The joint spaces are well-preserved. No significant degenerative/arthritic changes. No erosive changes evident. Other findings:None. IMPRESSION: No acute findings. Dictated by: Dr. Kal Cross MD 06/27/2019 17:[address] Kal Cross MD in [facility] 06/27/2019 17:21
== END ==
PROVIDERS: PCP Emergency Medicine; Visit Provider Emergency Medicine
DX: M54.2 Cervicalgia (principal); M25.512 Pain in left shoulder; M25.511 Pain in right shoulder; M79.602 Pain in left arm
CPT/HCPCS: 72040; 73030; 73090; 73130

== ENCOUNTER → 2019-08-08 18:13 | Outpatient (CLI) | payer MEDICAID, SELFPAY ==
[2019-08-08 19:09] LABS: Amphetamine/Metha Screen,Urine Negative ng/mL (<1000); Barbiturates Screen,Urine Negative ng/mL (<200); Benzodiazepines Screen,Urine Negative ng/mL (<200); Cannabinoid Screen,Urine Negative ng/mL (<50); Cocaine Screen,Urine Negative ng/mL (<300); Methadone Screen,Urine Negative ng/mL (<300); Opiate Screen,Urine Positive ng/mL (<300); Phencyclidine Screen,Urine Negative ng/mL (<25)
== END ==
PROVIDERS: Visit Provider Emergency Medicine
DX: Z79.899 Other long term (current) drug therapy (principal)
CPT/HCPCS: 80305

== ENCOUNTER → 2019-09-18 13:45 | Outpatient (CLI) | payer MEDICAID, SELFPAY ==
[2019-09-18 15:00] LABS: Amphetamine/Metha Screen,Urine Negative ng/ml (<1000)
[2019-09-18 15:01] LABS: Barbiturates Screen,Urine Negative ng/ml (<200)
[2019-09-18 15:02] LABS: Benzodiazepines Screen,Urine Negative ng/ml (<200)
[2019-09-18 15:03] LABS: Cannabinoid Screen,Urine Negative ng/ml (<50); Cocaine Screen,Urine Negative ng/ml (<300)
[2019-09-18 15:04] LABS: Methadone Screen,Urine Negative ng/ml (<300)
[2019-09-18 15:05] LABS: Opiate Screen,Urine Positive ng/ml (<300); Phencyclidine Screen,Urine Negative ng/ml (<25)
== END ==
PROVIDERS: Visit Provider Emergency Medicine
DX: Z79.899 Other long term (current) drug therapy (principal)
CPT/HCPCS: 80305

== ENCOUNTER → 2019-10-01 10:43 | Outpatient (CLI) | payer MEDICAID, SELFPAY ==
--- NOTE | 2019-10-01 10:43 | MR_ITS ---
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 3-D MIP and myelographic images are also rendered and reviewed FINDINGS: There is normal alignment. The spinal cord ends at the L1 level. T12-L1: Unremarkable. L1-L2: Unremarkable. There is small Schmorl's node along the superior endplate of L2 unchanged. L2-L3: Unremarkable. L3-L4: Degenerative disc disease with bulging disc. There is a broad-based central/right paracentral and foraminal disc protrusion. This has developed since the previous exam. This along with facet and ligamentum hypertrophy results in moderate to severe right lateral recess narrowing and moderate left lateral recess narrowing. There is transverse narrowing of the canal. There is mild bilateral foraminal narrowing. These findings have progressed since the previous exam. L4-5: Mild facet ligamentum hypertrophy. L5-S1: Minimal bulging disc with mild facet ligamentum hypertrophy with mild bilateral foraminal narrowing. IMPRESSION: 1. L3-L4: Degenerative disc disease with bulging disc. There is a broad-based central/right paracentral and foraminal disc protrusion. This has developed since the previous exam. This along with facet and ligamentum hypertrophy results in moderate to severe right lateral recess narrowing and moderate left lateral recess narrowing. There is transverse narrowing of the canal. There is mild bilateral foraminal narrowing. These findings have progressed since the previous exam. 2. L4-5: Mild facet ligamentum hypertrophy. 3. L5-S1: Minimal bulging disc with mild facet ligamentum hypertrophy with mild bilateral foraminal narrowing. Dictated by: José Miguel Salazar MD 10/02/2019 07:24 Electronically signed by José Miguel Salazar MD in [facility] 10/02/2019 07:24
--- NOTE | 2019-10-01 10:43 | MM_ITS ---
PROCEDURE: MM DIG SCREENING MAMM BI W/CAD DIGITAL BILATERAL BREAST TOMOSYNTHESIS INCLUDED Patient Age:48Y CLINICAL INDICATION: screening no hormones but no new complaints. Positive family history. Mother with breast cancer. Maternal grandmother and aunt with breast cancer COMPARISON: DMSB DIG MAMM-SCREEN DINORA from 03/01/2016 DMDXUAVR DIG MAMM-DX UNI ADD VIEWS-RT from 03/23/2016 DMSB DIG MAMM-SCREEN DINORA W/CAD from 06/09/2017 [facility] MM Dig screening mamm BI w/CAD from 08/11/2018 TECHNIQUE: Standard CC and MLO images were obtained. R2 CAD reviewed. Digital bilateral breast tomosynthesis included FINDINGS: Low-density breast with generalized fatty replacement. Scant residual fibroglandular elements Right breast:: Unremarkable Left breast stable appearance with no new areas of concern Ongoing annual follow-up recommended and encouraged in this patient with positive family history IMPRESSION: Stable bilateral mammogram No new areas of concern Low-density breast bilateral follow-up 1 year recommended BI-RAD Category: 1 Negative FOLLOW-UP: 1YR 1 Year Follow-up (A letter has been sent to the patient regarding results of the study.) Dictated by: Jacob Jhaveri MD 10/05/2019 08:13 Electronically signed by Jacob Jhaveri MD in [place] 10/05/2019 08:13
== END ==
PROVIDERS: PCP Emergency Medicine; Visit Provider Obstetrics & Gynecology
DX: Z12.31 Encounter for screening mammogram for malignant neoplasm of breast (principal); M54.9 Dorsalgia, unspecified
CPT/HCPCS: 72148; 76376; 77063; 77067

== ENCOUNTER → 2019-10-05 13:27 | Outpatient (CLI) | payer MEDICAID, SELFPAY ==
--- NOTE | 2019-10-05 13:31 | XR_ITS ---
PROCEDURE: XR SHOULDER RT MIN 2V CLINICAL INDICATION: shoulder pain COMPARISON: XR SHOULDER LT MIN 2V from 06/27/2019 FINDINGS: No fracture or dislocation. No lytic or blastic change or significant degenerative change. No subacromial stenosis. IMPRESSION: Negative right shoulder Dictated by: José Miguel Salazar MD 10/05/2019 15:10 Electronically signed by José Miguel Salazar MD in [place] 10/05/2019 15:10
== END ==
PROVIDERS: PCP Emergency Medicine; Visit Provider Orthopaedic Surgery
DX: M25.511 Pain in right shoulder (principal)
CPT/HCPCS: 73030

== ENCOUNTER → 2019-11-27 13:08 | Outpatient (CLI) | payer MEDICAID, SELFPAY ==
--- NOTE | 2019-11-27 13:08 | MR_ITS ---
PROCEDURE: MR CERVICAL SPINE WO CON CLINICAL INDICATION: neck pain The neck pain with bilateral hand numbness and bilateral arm pain COMPARISON: ROOM SERVICE WAITER/WAITRESS/O MRI-C-SPINE W/O from 04/18/2017 TECHNIQUE: Standard multiplanar multiecho sequences are performed without contrast. 3-D MIP and myelographic images are also rendered and reviewed FINDINGS: There is normal alignment. The craniocervical junction has an unremarkable appearance. The C2-C3: Unremarkable. C3-C4: Unremarkable. C4-C5: Unremarkable. C5-C6: Degenerative disc disease with minimal bulging disc. There is narrowing of the canal at this level at 9 mm. Previously noted central disc extrusion is no longer apparent. There may be a small left foraminal disc protrusion at this area seen on the T2 axial images. Type 1 endplate changes are present at this level C6-C7: Degenerative disc disease with a small central disc herniation and minimal inferior extrusion not significantly changed. Canal stenosis is present at this level at 9 mm. C7-T1 is unremarkable. IMPRESSION: 1. C5-C6: Degenerative disc disease with minimal bulging disc with type 1 endplate changes. There is narrowing of the canal at this level at 9 mm. Previously noted central disc extrusion is no longer apparent. There may be a small left foraminal disc protrusion at this area seen on the T2 axial images. 2. C6-C7: Degenerative disc disease with a small central disc herniation and minimal inferior extrusion not significantly changed. Canal stenosis is present at this level at 9 mm. Dictated by: José Miguel Salazar MD 11/28/2019 17:26 Electronically signed by José Miguel Salazar MD in [place] 11/28/2019 17:26
== END ==
PROVIDERS: PCP Emergency Medicine; Visit Provider Anesthesiology Pain Medicine
DX: M54.2 Cervicalgia (principal)
CPT/HCPCS: 72141; 76376

== ENCOUNTER → 2020-01-08 15:50 | Outpatient (CLI) | payer MEDICAID, SELFPAY ==
[2020-01-10 13:33] LABS: Covid-19 Nasal PCR Sendout Lex NOT DETECTED
== END ==
PROVIDERS: PCP Emergency Medicine; Visit Provider Emergency Medicine
DX: Z03.818 Encounter for observation for suspected exposure to other biological agents ruled out (principal)
CPT/HCPCS: U0004

== ENCOUNTER → 2020-01-29 13:41 | Outpatient (CLI) | payer MEDICAID, SELFPAY ==
--- NOTE | 2020-01-29 13:42 | XR_ITS ---
PROCEDURE: XR TIBIA FIBULA LT 2V CLINICAL INDICATION: leg pain COMPARISON: No exams were available for comparison FINDINGS: No fracture, dislocation, lytic change, or blastic change evident. No significant degenerative change IMPRESSION: No acute findings. Dictated by: José Miguel Salazar MD 01/29/2020 14:16 Electronically signed by José Miguel Salazar MD in [place] 01/29/2020 14:16
--- NOTE | 2020-01-29 14:02 | XR_ITS ---
PROCEDURE: XR FEMUR LT 2V CLINICAL INDICATION: LEG PAIN COMPARISON: No exams were available for comparison FINDINGS: No fracture or dislocation. No lytic or blastic change. There is normal mineralization. The joint spaces are well-preserved. No significant degenerative/arthritic changes. No erosive changes evident. Other findings:None. IMPRESSION: Negative left femur Dictated by: José Miguel Salazar MD 01/29/2020 14:47 Electronically signed by José Miguel Salazar MD in [place] 01/29/2020 14:47
== END ==
PROVIDERS: PCP Emergency Medicine; Visit Provider Emergency Medicine
DX: M79.605 Pain in left leg (principal)
CPT/HCPCS: 73552; 73590

== ENCOUNTER → 2020-02-27 13:46 | Outpatient (CLI) | payer MEDICAID, SELFPAY ==
--- NOTE | 2020-02-27 13:46 | US_ITS ---
PROCEDURE: US EXTREMITY LT LIMITED CLINICAL INDICATION: Lt Thigh Mass COMPARISON: CR XR FEMUR LT 2V from 01/29/2020 FINDINGS: General survey was performed with ultrasound of the area of palpable concern in the left lateral thigh. No cystic or solid lesions evident by ultrasound. If there is indeed a palpable abnormality, then would consider MRI without and with contrast for further evaluation. IMPRESSION: Unremarkable limited ultrasound of the left thigh Dictated b José Miguel Salazar MD 02/28/2020 08:19 José Miguel Salazar MD in [place] 02/28/2020 08:19
== END ==
PROVIDERS: PCP Emergency Medicine; Visit Provider Emergency Medicine
DX: R22.42 Localized swelling, mass and lump, left lower limb (principal)
CPT/HCPCS: 76882

== ENCOUNTER → 2020-03-18 15:57 | Outpatient (CLI) | payer MEDICAID, SELFPAY ==
[2020-03-18 16:08] LABS: Basophils # 0.1 K/mm3 (0-0.2); Basophils % 0.8 % (0.1-2.0); Eosinophils # 0.2 K/mm3 (0.0-0.4); Eosinophils % 2.9 % (0.1-12.0); Hematocrit 38.2 % (37.0-47.0); Hemoglobin 13.1 g/dL (12.2-16.2); Lymphocytes # 3.8 K/mm3 (0.7-4.5); Lymphocytes % 51.3 % (10-50); Mean Corpuscular HGB Conc 34.2 g/dL (31.8-35.4); Mean Corpuscular Hemoglobin 33.6 pg (27.0-31.2); Mean Corpuscular Volume 98.1 fl (81-99); Mean Platelet Volume 7.1 fl (7.4-10.4); Monocytes # 0.3 K/mm3 (0.1-1.0); Monocytes % 4.3 % (1.7-9.3); Neutrophils % 40.8 % (37.0-80.0); Platelet Count 377 K/mm3 (142-424); Red Blood Count 3.89 M/mm3 (4.20-5.40); Red Cell Distribution Width 13.4 % (11.5-17.5); White Blood Count 7.4 K/mm3 (4.8-10.8)
[2020-03-18 16:23] LABS: MANUAL DIFFERENTIAL MANUAL DIFFERENTIAL (MANUAL DIFF)
[2020-03-18 17:05] LABS: Alanine Aminotransferase 34 U/L (12-78); Albumin Level 4.5 g/dl (3.5-5.0); Albumin/Globulin Ratio 1.5 (1.1-1.8); Alkaline Phosphatase 102 U/L (38-126); Amylase 69 U/L (30-110); Anion Gap 18.5 mEq/L (5-15); Aspartate Amino Transferase 64 U/L (14-36); Bilirubin,Total 0.5 mg/dl (0.2-1.3); Blood Urea Nitrogen 7 mg/dl (7-17); Carbon Dioxide 24 mmol/L (22.0-30.0); Chloride 97 mmol/L (98-107); Estimated Glomerular Filt Rate 132 ml/min (>60); GFR (African American) 159 ML/MIN (>60); Glucose 89 mg/dl (74-100); Lipase 108 U/L (23-300); Potassium 4.5 mmoL/L (3.5-5.1); Sodium 135 mmol/L (136-145); Total Protein,Serum 7.5 g/dl (6.3-8.2)
[2020-03-18 18:04] LABS: Lymphocytes % 59 % (10-50); Monocytes % 16 % (2-9); Neutrophils % 25 % (42-76); Platelet Estimate Normal; RBC Morphology Normal; Total Cells Counted 100
== END ==
PROVIDERS: Visit Provider Emergency Medicine
DX: R10.11 Right upper quadrant pain (principal)
CPT/HCPCS: 36415; 80053; 82150; 83690; 85007; 85025

== ENCOUNTER → 2020-03-20 11:37 | Outpatient (CLI) | payer MEDICAID, SELFPAY ==
[2020-03-20 12:45] LABS: Coronavirus 19 IgG Antibody Negative (Negative); Coronavirus 19 IgM Antibody Negative (Negative)
== END ==
PROVIDERS: Visit Provider Internal Medicine Gastroenterology
DX: Z01.84 Encounter for antibody response examination (principal)
CPT/HCPCS: 36415; 86328

== ENCOUNTER 2020-03-21 10:08 | Day surgery (SDC) | payer MEDICAID, SELFPAY ==
[2020-03-17 09:10] VITALS: BMI 21.2
[2020-03-21] VITALS (7 sets, daily range): BP systolic 114–136; BP diastolic 61–90; PULSE 81–110; RESP 18–20; TEMP 36.5; O2SAT 96–98
--- NOTE | 2020-03-21 11:39 | P.PN_ITS ---
[facility] Anesthesia Checklist - Patient Identification Patient Identification: Arm Band, Verbal (Name & ) - Structural Data Admitted From: Home Planned Operative Procedure/s: EGD Consent for Planned Operative Procedure(s) Verified: Yes Verified Documents: Surgical Consent, History and Physical - NPO Status Verified Time NPO: 00:00 - Chart Verification Results Verified: CBC, BMP - Additional verifications Anesthesia Reactions: No Hx Blood Transfusions: No Blood Transfusion Reaction: No - Airway Assessment C-Spine Mobility Assessed: Yes TMJ Mobility Assessed: Yes Dentition: Good Dentition - Neurological Assessment Level of Consciousness: Awake, Alert, Appropriate, Follows Commands Hx Seizures: No Numbness or tingling in extremities: No - Anesthesia Plan Anesthesia Risk discussed: Yes Anesthesia Plan: Verified ASA Class: III Anesthesia Type: MAC [facility] History I have reviewed the patient's past medical history: Yes Medical History: Reports:: Anxiety, Asthma, Chronic Obstructive Pulmonary Disease (COPD), Depression, Gastroesophageal Reflux Disease(GERD), Hyperlipidemia, Hypertension, Lung Disease, Seizures Denies:: Cancer, Diabetes Mellitus Type 1, Diabetes Mellitus Type 2, Internal Pacemaker, MRSA *Have you ever received a pneumonia vaccine?: No *Have you received a flu vaccine this season?: No Other Medical History: Reports: Fibromyalgia, Hypothyroidism, Thyroid Disease. Denies: Blood Transfusion Reaction Anesthesia experience/problems:: None Other Surgeries: Yes: Colonoscopy, Diagnostic Lap, Hysterectomy-Total, Other. No: Pacemaker Amputation: No Fractures: No - *Social History Last grade of school completed: 9th or 10th Smoking Status: Current every day smoker Tobacco Type: smokeless tobacco # Packs/Day (cigarettes): 1 Alcohol Intake: current Alcohol Intake Frequency:: a few times a week Substance Use Type: denies use *Occupational Status:: unemployed Housing: house Household Members: none *Travel in the last 8 weeks: None - Psychiatric History Pschychiatric History:: Reports:: Anxiety, Depression Family Hx:: No significant family history
--- NOTE | 2020-03-21 11:44 | P.PCN_ITS ---
[facility] Procedure Note Procedure Note:: Upper Endoscopy Procedure Report: Esophagogastroduodenoscopy with cold biopsies Endoscopost: Matthew Mcgovern II, MD Referring Physician: Perry Hicks MD Date of Procedure: March 21, 2020 Equipment: Olympus GIF 180 standard upper endoscope Sedation: MAC sedation Indications: Mrs. Kamara is a 49-year-old female with nausea, vomiting, regurgitation, belching and dyspepsia. She has some periumbilical and epigastric discomfort. She also has had some right upper quadrant and right precordial pain and discomfort. She is taking Phenergan. She reports moderate early satiety. She has had regular bowel function. She does state that she had a colonoscopy in July 2019 (Dr. Oswaldo Carrasquillo) and had some large colon polyps removed. She has not had any ultrasound of the gallbladder or HIDA scan. She reports no dysphagia. She has lost 11 pounds. She reports no bloating. Procedure: Prior to the procedure, a history and physical exam was performed, and patient's medications and allergies were reviewed. The risks, benefits and alternatives of the sedation and procedure were discussed with the patient. All questions were answered and informed consent was obtained. The patient was brought to the procedure room. Patient identification and proposed procedure were verified by the physician and the nurse. The patient was placed in a left lateral decubitus position and the scope was passed under direct vision. Throughout the procedure, the patient's blood pressure, pulse, and oxygen saturations were monitored continuously. The upper GI endoscopy was accomplished without difficulty. The patient tolerated the procedure well. Findings: The scope was passed directly into the upper esophagus and advanced to the third portion of the duodenum. The post bulbar duodenum and duodenal bulb were normal with normal mucosa and conniventes. There was duodenal lymphoid stasis and cold biopsies were obtained from the post bulbar duodenum. The scope was withdrawn through a normal duodenal bulb and pylorus into the stomach. There was moderate bile reflux with linear reactive gastropathy of the antrum and body of the stomach. There was some retained digested fluid in minimal undigested food content within the stomach suggestive of gastric dysmotility. Cold biopsies were taken from the antrum. Upon retroflexion there was a small 2 cm hiatal hernia. The scope was then withdrawn into the esophagus. There was no evidence of reflux esophagitis or Mars's. The remainder of the esophageal mucosa was normal. Impression: 1. Bile reflux with linear reactive gastropathy 2. Nonerosive GERD with mild esophageal dysmotility and 2 cm hiatal hernia 3. Duodenal lymphoid stasis Plan: I am going to follow-up the biopsies. I do feel that the patient has some functional dyspepsia. We will discuss treatment options. I would also recommend ultrasound of the abdomen today if possible with evaluation of the bile duct. I may also obtain some routine blood work including liver and pancreatic chemistries.
--- NOTE | 2020-03-21 12:35 | US_ITS ---
PROCEDURE: US GALLBLADDER CLINICAL INDICATION: right upper quadrant pain COMPARISON: No exams were available for comparison FINDINGS: Pancreas: Unremarkable/Not well seen Liver: Unremarkable. There is appropriate direction of blood flow within a non dilated portal vein. Right kidney: Unremarkable appearing. No hydronephrosis. Gallbladder: Small hyperechoic foci are present along the posterior aspect of the gallbladder superiorly without shadowing and may be due to small polyps. Tumefactive sludge is also considered. Nonshadowing stones also a consideration. No gallbladder wall thickening, pericholecystic fluid, or biliary dilatation is evident. IMPRESSION: Small nonshadowing echogenic foci in the upper aspect of the gallbladder which could be due to small polyps, nonshadowing adherent stones, or small sludge balls otherwise negative Dictated by: José Miguel Salazar MD 03/21/2020 13:52 José Miguel Salazar MD in [place] 03/21/2020 13:52
== END 2020-03-21 12:44 | disposition home or self-care (01) ==
LOC: OUTP 10:10
PROVIDERS: PCP Emergency Medicine; Visit Provider Internal Medicine Gastroenterology
PROC: 0DJ08ZZ Inspection of Upper Intestinal Tract, Via Natural or Artificial Opening Endoscopic (ICD-10-PCS; CPT 43235; principal; 2020-03-21 11:00)
DX: K44.9 Diaphragmatic hernia without obstruction or gangrene (principal); K21.9 Gastro-esophageal reflux disease without esophagitis; K31.9 Disease of stomach and duodenum, unspecified; K22.4 Dyskinesia of esophagus; R59.0 Localized enlarged lymph nodes; Z86.010 Personal history of colon polyps; J44.9 Chronic obstructive pulmonary disease, unspecified; F41.9 Anxiety disorder, unspecified; F32.9 Major depressive disorder, single episode, unspecified; E78.5 Hyperlipidemia, unspecified; I10 Essential (primary) hypertension; E03.9 Hypothyroidism, unspecified
CPT/HCPCS: 43239; 76705

== ENCOUNTER → 2020-04-02 13:42 | Outpatient (CLI) | payer MEDICAID, SELFPAY ==
--- NOTE | 2020-04-02 13:42 | MR_ITS ---
PROCEDURE: MR FEMUR LT WO CON CLINICAL INDICATION: left thigh mass Pt states she has a palpable mass lateral left thigh, . Pt states the area causes pain x 2 years. prior us of area done 02/27/2020 COMPARISON: CR XR FEMUR LT 2V from 01/29/2020 US US EXTREMITY LT LIMITED from 02/27/2020 TECHNIQUE: Routine multiplanar multi echo sequences are performed without gadolinium enhancement. FINDINGS: A marker is placed in the area of concern which is in the mid thigh region laterally. Multi planar multi echo sequences are performed of this region. There is no evidence of subcutaneous or muscular mass or bony mass at this area. No abnormal fluid collection is evident. There is normal signal intensity on all sequences. IMPRESSION: Unremarkable MRI of the left thigh. No mass or abnormal fluid collection evident. Dictated by: José Miguel Salazar MD 04/09/2020 08:30 José Miguel Salazar MD in [place] 04/09/2020 08:30
== END ==
PROVIDERS: PCP Emergency Medicine; Visit Provider Emergency Medicine
DX: R22.42 Localized swelling, mass and lump, left lower limb (principal)
CPT/HCPCS: 73718

== ENCOUNTER → 2020-04-03 10:15 | Outpatient (CLI) | payer MEDICAID, SELFPAY ==
--- NOTE | 2020-04-03 10:18 | NM_ITS ---
PROCEDURE: NM HEPATOBILIARY W PHARM CLINICAL INDICATION: RUQ PAIN,N/V,ABD PAIN COMPARISON: No exams were available for comparison TECHNIQUE: DOSE: 8.57 mCi technetium Choletec and 1.1 mcg of CCK. There was pain reported with CCK infusion. FINDINGS: Homogeneous activity is present within the hepatic parenchyma. Activity is present in the gallbladder by 5 minutes. Activity is present in the small bowel by 10 minutes. The gallbladder ejection fraction is calculated to be 90 percent. CCK-The patient did report pain during CCK infusion. IMPRESSION: No evidence of common or cystic duct obstruction with normal gallbladder ejection fraction. Dictated by: José Miguel Salazar MD 04/03/2020 17:19 José Miguel Salazar MD in [place] 04/03/2020 17:19
--- NOTE | 2020-04-03 12:14 | HMH.ITSHM ---
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 [] omeprazole meloxicam loperanide gabapeatin estradiol
== END ==
PROVIDERS: PCP Emergency Medicine; Visit Provider Internal Medicine Gastroenterology
DX: R10.11 Right upper quadrant pain (principal); R11.2 Nausea with vomiting, unspecified
CPT/HCPCS: 78227; A9537; J2805

== ENCOUNTER → 2020-05-12 15:47 | Outpatient (POV) | payer MEDICAID, SELFPAY | PROVIDERS: Visit Provider Nurse Practitioner Family | DX: Z00.00 Encounter for general adult medical examination without abnormal findings (principal) ==

== ENCOUNTER → 2020-05-28 12:38 | Outpatient (CLI) | payer MEDICAID, SELFPAY ==
[2020-05-28 13:06] LABS: Basophils % 0.7 % (0.1-2.0); Eosinophils # 0.1 K/mm3 (0.0-0.4); Eosinophils % 1.5 % (0.1-12.0); Lymphocytes # 2.7 K/mm3 (0.7-4.5); Lymphocytes % 41.4 % (10-50); Mean Corpuscular HGB Conc 30.2 g/dL (31.8-35.4); Mean Corpuscular Volume 102.7 fl (81-99); Mean Platelet Volume 6.9 fl (7.4-10.4); Monocytes # 0.2 K/mm3 (0.1-1.0); Monocytes % 3.4 % (1.7-9.3); Neutrophils # 3.4 K/mm3 (1.8-7.8); Neutrophils % 53.1 % (37.0-80.0); Platelet Count 333 K/mm3 (142-424); Red Blood Count 4.18 M/mm3 (4.20-5.40); White Blood Count 6.4 K/mm3 (4.8-10.8)
[2020-05-28 13:29] LABS: Chloride 96 mmol/L (98-107); Sodium 135 mmol/L (136-145)
[2020-05-28 13:30] LABS: Potassium 4.3 mmoL/L (3.5-5.1)
[2020-05-28 13:32] LABS: Alanine Aminotransferase 41 U/L (12-78); Alkaline Phosphatase 108 U/L (38-126); Anion Gap 15.3 mEq/L (5-15); Aspartate Amino Transferase 76 U/L (14-36); Bilirubin,Total 0.6 mg/dl (0.2-1.3); Blood Urea Nitrogen 9 mg/dl (7-17); Calcium 10.1 mg/dl (8.4-10.2); Carbon Dioxide 28 mmol/L (22.0-30.0); Estimated Glomerular Filt Rate 132 ml/min (>60); GFR (African American) 159 ML/MIN (>60); Glucose 112 mg/dl (74-100)
[2020-05-28 13:33] LABS: Albumin Level 4.9 g/dl (3.5-5.0); Albumin/Globulin Ratio 1.6 (1.1-1.8); Globulin 3.1 g/dL (1.3-3.2)
[2020-05-28 15:10] LABS: Coronavirus 19 IgG Antibody Negative (Negative); Coronavirus 19 IgM Antibody Negative (Negative)
== END ==
PROVIDERS: Visit Provider Surgery
DX: Z01.818 Encounter for other preprocedural examination (principal); K83.8 Other specified diseases of biliary tract; R10.11 Right upper quadrant pain; R11.2 Nausea with vomiting, unspecified
CPT/HCPCS: 36415; 80053; 85025; 86328

== ENCOUNTER 2020-05-30 08:35 | Day surgery (SDC) | payer MEDICAID, SELFPAY ==
[2020-05-27 13:04] VITALS: BMI 20.5
[2020-05-30] VITALS (12 sets, daily range): BP systolic 109–139; BP diastolic 53–85; PULSE 75–99; RESP 15–18; TEMP 36.2–43; O2SAT 94–99
--- NOTE | 2020-05-30 10:14 | P.OP_ITS ---
Date of procedure: 05/30/20 Pre-op Diagnosis:: Right upper quadrant pain Biliary sludge Post-op Diagnosis:: Same as preoperative diagnoses with the addition of the following: Chronic cholecystitis Procedure performed:: Laparoscopic cholecystectomy Surgeon:: Victoriano Brito MD MANAGER ENDOSCOPY:: Yandel Tom Anesthesia: GETA Estimated blood loss (mL): 15 Operative findings:: Moderate pericholecystic fat stranding Operative note:: After informed consent was obtained, the patient was taken to the operating room and placed in the supine position. General anesthesia was induced and the abdomen was prepped and draped in a sterile fashion. After infiltration with local anesthetic an infraumbilical incision was made. A Veress needle was placed in position. The abdomen was insufflated. A 5 mm optical trocar was placed in position. Under direct visualization, a 12 mm trocar was placed in the subxiphoid position and 2 additional 5 mm trocars were placed in the right upper quadrant. The gallbladder was elevated up and over the liver margin. The tissue around the cystic duct was carefully dissected. 3 clips were placed pr oximally and the duct was transected with harmonic shade. Harmonic shade were then utilized to dissect the gallbladder away from the liver margin with careful attention to the control of the cystic artery. The gallbladder was placed in a retrieval bag and removed through the subxiphoid trocar site. The right upper quadrant was thoroughly irrigated. No active bleeding or bile leak was noted. Fascia at the subxiphoid trocar site was reapproximated utilizing the NeoClose device. The remaining trocars were removed. All wounds were irrigated and skin was closed with 4-0 Monocryl in a subcuticular fashion. Steri-Strips were applied. The patient's anesthetic agents were reversed and extubation was completed prior to transfer to recovery in stable condition. Condition: stable Disposition: PACU Specimens:: Gallbladder and contents Complications:: No immediate
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
--- NOTE | 2020-05-30 10:24 | HMH.ANESI ---
[facility] Anesthesia Record Part I Intake, IV Amount: 1,000 Estimated blood loss (mL): 10 Urine output (mL): 0 Blood Pressure: 124/76 SaO2: 96 Pulse Rate: 84 Respiratory Rate: 16 Temperature: 97.2 F Patient is:: Drowsy, Stable Stable to PACU at:: 10:20
--- NOTE | 2020-05-30 18:08 | HMH.ANESII ---
[facility] Anesthesia Record Part II Discharge Time: 10:50 Destination: Surgical Day Care (OP Surgery) PACU nurse assessment reviewed?: Yes Patient Condition:: Good Anesthesia Complications:: None Swallowing reflex intact?: Yes Cyanosis?: No Blood Pressure: 137/85 Pulse Rate: 87 Temperature: 97.6 F Mental Status: Alert & Oriented Pain level:: 0 Nausea and/or vomitting:: None Intake, IV Amount: 0
== END 2020-05-30 11:40 | disposition home or self-care (01) ==
LOC: OR 08:36
PROVIDERS: PCP Emergency Medicine; Visit Provider Surgery
PROC: 0FT44ZZ Resection of Gallbladder, Percutaneous Endoscopic Approach (ICD-10-PCS; CPT 47562; principal; 2020-05-30 09:45)
DX: K81.1 Chronic cholecystitis (principal); K83.8 Other specified diseases of biliary tract; J44.9 Chronic obstructive pulmonary disease, unspecified; K21.9 Gastro-esophageal reflux disease without esophagitis; E78.5 Hyperlipidemia, unspecified; I10 Essential (primary) hypertension; Z88.6 Allergy status to analgesic agent; Z88.1 Allergy status to other antibiotic agents; Z88.0 Allergy status to penicillin; Z79.890 Hormone replacement therapy; Z79.899 Other long term (current) drug therapy
CPT/HCPCS: 47562; 96374; J2405; J2710

== ENCOUNTER → 2020-08-12 17:25 | Outpatient (CLI) | payer MEDICAID, SELFPAY ==
[2020-08-12 17:47] LABS: Basophils # 0.1 K/mm3 (0-0.2); Basophils % 0.8 % (0.1-2.0); Eosinophils # 0.1 K/mm3 (0.0-0.4); Eosinophils % 2.1 % (0.1-12.0); Hematocrit 45.4 % (37.0-47.0); Lymphocytes % 51.3 % (10-50); Mean Corpuscular Hemoglobin 32.6 pg (27.0-31.2); Mean Corpuscular Volume 98.8 fl (81-99); Mean Platelet Volume 7.1 fl (7.4-10.4); Monocytes # 0.3 K/mm3 (0.1-1.0); Monocytes % 4.2 % (1.7-9.3); Neutrophils # 2.4 K/mm3 (1.8-7.8); Neutrophils % 41.5 % (37.0-80.0); Platelet Count 399 K/mm3 (142-424); Red Blood Count 4.59 M/mm3 (4.20-5.40); White Blood Count 5.9 K/mm3 (4.8-10.8)
[2020-08-12 17:55] LABS: MANUAL DIFFERENTIAL MANUAL DIFFERENTIAL (MANUAL DIFF)
[2020-08-12 18:56] LABS: Chloride 96 mmol/L (98-107); Sodium 137 mmol/L (136-145)
[2020-08-12 18:57] LABS: Potassium 4.3 mmoL/L (3.5-5.1)
[2020-08-12 18:59] LABS: Alanine Aminotransferase 55 U/L (12-78); Albumin Level 5.4 g/dl (3.5-5.0); Albumin/Globulin Ratio 1.4 (1.1-1.8); Alkaline Phosphatase 145 U/L (38-126); Anion Gap 18.3 mEq/L (5-15); Aspartate Amino Transferase 96 U/L (14-36); Bilirubin,Total 0.6 mg/dl (0.2-1.3); Blood Urea Nitrogen 7 mg/dl (7-17); Calcium 10.6 mg/dl (8.4-10.2); Carbon Dioxide 27 mmol/L (22.0-30.0); Cholesterol 280 mg/dl (140-200); Estimated Glomerular Filt Rate 132 ml/min (>60); GFR (African American) 159 ML/MIN (>60); Globulin 3.8 g/dL (1.3-3.2); Glucose 104 mg/dl (74-100); Total Protein,Serum 9.2 g/dl (6.3-8.2); Triglycerides 57 mg/dl (30-150); VLDL Cholesterol 11 mg/dL (0-40)
[2020-08-12 19:11] LABS: Direct LDL Cholesterol 74.27 mg/dL (100-129)
[2020-08-12 19:15] LABS: Chol/HDL Ratio 1.6 (1-3.5); HDL Cholesterol 173 mg/dl (40-60)
[2020-08-12 19:17] LABS: T4 (Thyroxine) 7.5 ug/dl (5.53-11.0)
[2020-08-12 19:21] LABS: 25-OH Vitamin D, Total < 12.8 ng/mL (30-100)
[2020-08-12 19:31] LABS: Thyroid Stimulating Hormone 3.16 uIU/mL (0.465-4.68)
[2020-08-12 20:47] LABS: Eosinophils % 1 % (0-3); Lymphocytes % 49 % (10-50); Monocytes % 8 % (2-9); Neutrophils % 42 % (42-76); Platelet Estimate Normal; RBC Morphology Normal; Total Cells Counted 100
== END ==
PROVIDERS: Visit Provider Emergency Medicine
DX: R53.83 Other fatigue (principal); E03.9 Hypothyroidism, unspecified; E55.9 Vitamin D deficiency, unspecified; G62.9 Polyneuropathy, unspecified
CPT/HCPCS: 36415; 80053; 80061; 82306; 84436; 84443; 85007; 85025

== ENCOUNTER 2020-08-12 17:55 | Emergency (ER) | payer MEDICAID, SELFPAY ==
[2020-08-12 17:57] VITALS: BP 166/96; PULSE 85; RESP 16; TEMP 36.9; O2SAT 98; BMI 20.4
--- NOTE | 2020-08-12 18:21 | CT_ITS ---
PROCEDURE: CT CERVICAL SPINE WO CON CLINICAL INDICATION: pain Severe neck pain with limited range of motion COMPARISON: MR MR CERVICAL SPINE WO CON from 11/27/2019 TECHNIQUE: Axial images obtained with sagittal and coronal reformats. All CT scans at the facility use one or more dose reduction, viz: automated exposure control, ma/kV adjustment per patient size (including targeted exams where dose is matched to indication, i.e. head), or iterative reconstruction technique. Axial spiral CT scanning performed of the cervical spine beginning at the base of the skull and continuing to the upper T-spine. 3-D multiplanar reconstruction with 3-D manipulation of volumetric data set in image rendering was completed by the radiologist and/or technologist with the supervision of the radiologist on independent workstation. FINDINGS: There is normal alignment. No acute fracture or dislocation is evident. There is degenerative disc disease at C5-C6 with canal stenosis and mild left-sided foraminal narrowing Lung apices are clear. IMPRESSION: 1. No acute fracture. 2. Degenerative disc disease C5-C6 with borderline canal stenosis and left-sided foraminal narrowing Dictated by: José Miguel Salazar MD 08/13/2020 07:44 José Miguel Salazar MD in [place] 08/13/2020 07:44
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
[2020-08-12 19:01] VITALS: BP 139/80; PULSE 72; RESP 20; O2SAT 99
[2020-08-12 19:45] VITALS: BP 139/80; PULSE 72; RESP 16; TEMP 36.8; O2SAT 98
== END 2020-08-12 19:52 | disposition home or self-care (01) ==
PROVIDERS: Emergency Provider Emergency Medicine; PCP Emergency Medicine
DX: M62.838 Other muscle spasm (principal); M54.2 Cervicalgia; V43.62XA Car passenger injured in collision with other type car in traffic accident, initial encounter; Y92.414 Local residential or business street as the place of occurrence of the external cause
CPT/HCPCS: 72125; 96372; 99282

== ENCOUNTER → 2020-08-21 15:54 | Outpatient (CLI) | payer MEDICAID, SELFPAY ==
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
[2020-08-23 09:13] LABS: Hep A Ab, IgM Negative (Negative); Hepatitis B Core Antibody IgM Negative (Negative); Hepatitis B Surface Antigen Negative (Negative)
[2020-08-23 12:20] LABS: Hepatitis C Antibody <0.1 s/co ratio (0.0-0.9)
== END ==
PROVIDERS: PCP Emergency Medicine; Visit Provider Emergency Medicine
DX: Z20.822 Contact with and (suspected) exposure to COVID-19 (principal); R74.8 Abnormal levels of other serum enzymes; M54.2 Cervicalgia; V89.2XXA Person injured in unspecified motor-vehicle accident, traffic, initial encounter
CPT/HCPCS: 36415; 70110; 71046; 72170; 72220; 73000; 80074; U0003

== ENCOUNTER → 2020-09-08 15:11 | Outpatient (CLI) | payer MEDICAID, SELFPAY ==
[2020-09-08 16:29] LABS: Amphetamine/Metha Screen,Urine Negative ng/ml (<1000)
[2020-09-08 16:30] LABS: Barbiturates Screen,Urine Negative ng/ml (<200); Benzodiazepines Screen,Urine Negative ng/ml (<200)
[2020-09-08 16:31] LABS: Cannabinoid Screen,Urine Negative ng/ml (<50)
[2020-09-08 16:32] LABS: Cocaine Screen,Urine Negative ng/ml (<300); Methadone Screen,Urine Negative ng/ml (<300)
[2020-09-08 16:33] LABS: Opiate Screen,Urine Positive ng/ml (<300)
[2020-09-08 16:34] LABS: Phencyclidine Screen,Urine Negative ng/ml (<25)
== END ==
PROVIDERS: Visit Provider Emergency Medicine
DX: Z79.899 Other long term (current) drug therapy (principal)
CPT/HCPCS: 80305

== ENCOUNTER 2020-10-20 10:30 | Outpatient (RCR) | payer MEDICAID, SELFPAY ==
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
== END 2020-10-20 10:35 | disposition home or self-care (01) ==
LOC: PT 10:30
PROVIDERS: PCP Emergency Medicine; Visit Provider Emergency Medicine
DX: M54.2 Cervicalgia (principal)
CPT/HCPCS: 97010; 97014; 97035; 97110; 97163; 97164; G0283

== ENCOUNTER → 2020-10-28 17:02 | Outpatient (CLI) | payer MEDICAID, SELFPAY ==
[2020-10-28 20:13] LABS: Amphetamine/Metha Screen,Urine Negative ng/ml (<1000)
[2020-10-28 20:14] LABS: Barbiturates Screen,Urine Negative ng/ml (<200)
[2020-10-28 20:15] LABS: Benzodiazepines Screen,Urine Negative ng/ml (<200); Cannabinoid Screen,Urine Negative ng/ml (<50)
[2020-10-28 20:16] LABS: Cocaine Screen,Urine Negative ng/ml (<300)
[2020-10-28 20:17] LABS: Methadone Screen,Urine Negative ng/ml (<300); Opiate Screen,Urine Positive ng/ml (<300)
[2020-10-28 20:18] LABS: Phencyclidine Screen,Urine Negative ng/ml (<25)
== END ==
PROVIDERS: Visit Provider Emergency Medicine
DX: Z79.899 Other long term (current) drug therapy (principal)
CPT/HCPCS: 80305

== ENCOUNTER → 2020-12-23 14:47 | Outpatient (CLI) | payer MEDICAID, SELFPAY ==
--- NOTE | 2020-12-23 14:47 | US_ITS ---
PROCEDURE: US THYROID CLINICAL INDICATION: tender mass COMPARISON: No exams were available for comparison FINDINGS: Right lobe: The right lobe is 3.3 x 1.3 x 1 2 cm. Left lobe: The left lobe is 3.61 x 1.2 cm. Isthmus: Unremarkable Additional findings: There is homogeneous echogenicity in both lobes of the thyroid gland. No mass or cyst evident. IMPRESSION: Unremarkable thyroid ultrasound Dictated by: José Miguel Salazar MD 12/23/2020 17:58 José Miguel Salazar MD in [facility] 12/23/2020 17:58
== END ==
PROVIDERS: PCP Emergency Medicine; Visit Provider Emergency Medicine
DX: R22.1 Localized swelling, mass and lump, neck (principal)
CPT/HCPCS: 76536

== ENCOUNTER → 2020-12-25 08:17 | Outpatient (CLI) | payer MEDICAID, SELFPAY ==
--- NOTE | 2020-12-25 08:17 | CT_ITS ---
PROCEDURE: CT HEAD/BRAIN WO CON CLINICAL INDICATION: daily persistant headache COMPARISON: No exams were available for comparison TECHNIQUE: Axial images obtained. All CT scans at the facility use one or more dose reduction, viz: automated exposure control, ma/kV adjustment per patient size (including targeted exams where dose is matched to indication, i.e. head), or iterative reconstruction technique. FINDINGS: No midline shift, mass effect, intracranial hemorrhage, hydrocephalus, or extra-axial fluid collection is evident. The calvarium has an unremarkable appearance. No mastoid effusion. No sinus air-fluid level. IMPRESSION: No acute intracranial finding Dictated by: José Miguel Salazar MD 12/25/2020 12:09 José Miguel Salazar MD in [facility] 12/25/2020 12:09
--- NOTE | 2020-12-25 08:17 | FL_ITS ---
PROCEDURE: FL BARIUM SWALLOW CLINICAL INDICATION: dysphagia COMPARISON: No exams were available for comparison TECHNIQUE: In the upright position the patient was observed to swallow barium in both the AP and lateral view. The cervical esophagus was examined under fluoroscopy with images obtained. The patient was then placed prone in the right anterior oblique position and was observed to swallow barium with Valsalva technique . FLUOROSCOPY TIME: 48 seconds FINDINGS: There was no evidence of aspiration. There was normal peristalsis. No filling defects or mucosal abnormalities. No masses or strictures. No evidence of hiatal hernia. There are mildly prominent anterior spurs at C5-C6 causing some mild indentation upon the posterior aspect of the esophagus. IMPRESSION: Minimal indentation upon the posterior aspect of the cervical esophagus at the C5-C6 level from bony spurs otherwise negative barium swallow Dictated by: José Miguel Salazar MD 12/25/2020 09:51 José Miguel Salazar MD in [facility] 12/25/2020 09:51
== END ==
PROVIDERS: PCP Emergency Medicine; Visit Provider Specialist
DX: G44.52 New daily persistent headache (NDPH) (principal); R13.10 Dysphagia, unspecified
CPT/HCPCS: 70450; 74220

== ENCOUNTER → 2021-01-19 14:08 | Outpatient (CLI) | payer MEDICAID, SELFPAY ==
[2021-01-19 17:28] LABS: Amphetamine/Metha Screen,Urine Negative ng/ml (<1000); Barbiturates Screen,Urine Negative ng/ml (<200)
[2021-01-19 17:29] LABS: Benzodiazepines Screen,Urine Negative ng/ml (<200)
[2021-01-19 17:30] LABS: Cannabinoid Screen,Urine Negative ng/ml (<50); Cocaine Screen,Urine Negative ng/ml (<300)
[2021-01-19 17:31] LABS: Methadone Screen,Urine Negative ng/ml (<300)
[2021-01-19 17:32] LABS: Opiate Screen,Urine Positive ng/ml (<300); Phencyclidine Screen,Urine Negative ng/ml (<25)
== END ==
PROVIDERS: Visit Provider Emergency Medicine
DX: Z79.899 Other long term (current) drug therapy (principal)
CPT/HCPCS: 80305

== ENCOUNTER → 2021-02-10 16:29 | Outpatient (CLI) | payer MEDICAID, SELFPAY | PROVIDERS: PCP Emergency Medicine; Visit Provider Nurse Practitioner Family | DX: F11.90 Opioid use, unspecified, uncomplicated (principal); G47.00 Insomnia, unspecified; R51.9 Headache, unspecified | CPT/HCPCS: 94762 ==

== ENCOUNTER → 2021-02-25 17:53 | Outpatient (CLI) | payer MEDICAID, SELFPAY ==
[2021-02-25 19:14] LABS: Amphetamine/Metha Screen,Urine Negative ng/ml (<1000)
[2021-02-25 19:15] LABS: Barbiturates Screen,Urine Negative ng/ml (<200); Benzodiazepines Screen,Urine Negative ng/ml (<200)
[2021-02-25 19:16] LABS: Cannabinoid Screen,Urine Negative ng/ml (<50); Cocaine Screen,Urine Negative ng/ml (<300)
[2021-02-25 19:17] LABS: Methadone Screen,Urine Negative ng/ml (<300)
[2021-02-25 19:18] LABS: Opiate Screen,Urine Positive ng/ml (<300); Phencyclidine Screen,Urine Negative ng/ml (<25)
== END ==
PROVIDERS: Visit Provider Emergency Medicine
DX: M62.838 Other muscle spasm (principal)
CPT/HCPCS: 80305

== ENCOUNTER → 2021-02-26 10:28 | Outpatient (CLI) | payer MEDICAID, SELFPAY ==
--- NOTE | 2021-02-26 10:28 | MR_ITS ---
PROCEDURE: MR ABDOMEN WO CON CLINICAL INDICATION: w/ MRCP Nausea vomiting diarrhea, right upper quadrant pain COMPARISON: CT CT ABDOMEN PELVIS WO CON from 03/22/2019 CR,RF FL BARIUM SWALLOW from 12/25/2020 TECHNIQUE: Routine multiplanar multi echo sequences are performed without gadolinium enhancement. FINDINGS: There has been a prior cholecystectomy. There is diffuse decreased T2 signal of the liver consistent fatty liver. No focal liver lesion is identified. The spleen and adrenal glands have an unremarkable appearance. No renal mass evident. Unremarkable appearing pancreas. Status post cholecystectomy. No biliary dilatation. No common duct stones or strictures. Pancreatic duct has an unremarkable appearance. The MRCP images are unremarkable. IMPRESSION: Status post cholecystectomy. Fatty liver Otherwise unremarkable abdominal MRI. No biliary dilatation or common duct stones apparent. Dictated by: José Miguel Salazar MD 02/26/2021 14:50 José Miguel Salazar MD in [facility] 02/26/2021 14:50
== END ==
PROVIDERS: PCP Emergency Medicine; Visit Provider Emergency Medicine
DX: R10.11 Right upper quadrant pain (principal)
CPT/HCPCS: 74181; 76376

== ENCOUNTER → 2021-04-06 18:35 | Outpatient (CLI) | payer MEDICAID, SELFPAY ==
[2021-04-06 21:17] LABS: Amphetamine/Metha Screen,Urine Negative ng/ml (<1000)
[2021-04-06 21:18] LABS: Barbiturates Screen,Urine Negative ng/ml (<200)
[2021-04-06 21:19] LABS: Benzodiazepines Screen,Urine Negative ng/ml (<200); Cannabinoid Screen,Urine Negative ng/ml (<50)
[2021-04-06 21:20] LABS: Cocaine Screen,Urine Negative ng/ml (<300)
[2021-04-06 21:21] LABS: Methadone Screen,Urine Negative ng/ml (<300); Opiate Screen,Urine Positive ng/ml (<300)
[2021-04-06 21:22] LABS: Phencyclidine Screen,Urine Negative ng/ml (<25)
== END ==
PROVIDERS: Visit Provider Emergency Medicine
DX: Z79.899 Other long term (current) drug therapy (principal)
CPT/HCPCS: 80305

== ENCOUNTER → 2021-05-29 17:41 | Outpatient (CLI) | payer MEDICAID, SELFPAY ==
[2021-05-29 21:38] LABS: Amphetamine/Metha Screen,Urine Negative ng/ml (<1000)
[2021-05-29 21:39] LABS: Barbiturates Screen,Urine Negative ng/ml (<200); Benzodiazepines Screen,Urine Negative ng/ml (<200)
[2021-05-29 21:40] LABS: Cannabinoid Screen,Urine Negative ng/ml (<50); Cocaine Screen,Urine Negative ng/ml (<300)
[2021-05-29 21:41] LABS: Methadone Screen,Urine Negative ng/ml (<300)
[2021-05-29 21:42] LABS: Opiate Screen,Urine Positive ng/ml (<300); Phencyclidine Screen,Urine Negative ng/ml (<25)
== END ==
PROVIDERS: Visit Provider Emergency Medicine
DX: Z79.899 Other long term (current) drug therapy (principal)
CPT/HCPCS: 80305

== ENCOUNTER 2021-06-07 19:36 | Emergency (ER) | payer MEDICAID, SELFPAY ==
[2021-06-07 19:38] VITALS: BP 169/103; PULSE 56; RESP 16; TEMP 36.7; O2SAT 98; BMI 20.7
--- NOTE | 2021-06-07 19:58 | XR_ITS ---
PROCEDURE INFORMATION: Exam: XR Left Wrist Exam date and time: 06/07/2021 7:58 PM Age: 50 years old Clinical indication: Pain; Wrist; Left; Additional info: Fall TECHNIQUE: Imaging protocol: XR Left wrist. Views: 3 or more views. COMPARISON: CR XR FOREARM LT 2V 06/27/2019 3:11 PM FINDINGS: Bones/joints: Bones appear mildly demineralized.No acute fracture or dislocation. Minimal spurring of the 1st metacarpal head at the 1st MCP joint. Minimal spurring of the distal pole of the navicular bone. No erosive changes. No significant joint narrowing. There are no lytic skeletal lesions seen. Soft tissues: No radiopaque foreign bodies. No pathologic soft tissue calcification. IMPRESSION: 1. No acute fracture or dislocation. 2. Minimal degenerative changes, as above.
--- NOTE | 2021-06-07 20:30 | XR_ITS ---
PROCEDURE INFORMATION: Exam: XR Left Forearm Exam date and time: 06/07/2021 8:30 PM Age: 50 years old Clinical indication: Injury or trauma; Fall; Blunt trauma (contusions or hematomas); Arm, lower; Left; Injury date: 06/07/2021 TECHNIQUE: Imaging protocol: XR Left forearm. Views: 2 views. COMPARISON: CR XR FOREARM LT 2V 06/27/2019 3:11 PM FINDINGS: Bones/joints: No acute fracture or dislocation in the left forearm. No significant bony arthritic deformities in the wrist or elbow joint.There are no lytic skeletal lesions seen. Soft tissues: Minimal soft tissue edema.No radiopaque foreign bodies. No pathologic soft tissue calcification. IMPRESSION: No acute fracture or dislocation.
--- NOTE | 2021-06-07 20:30 | XR_ITS ---
PROCEDURE INFORMATION: Exam: XR Left Elbow Exam date and time: 06/07/2021 8:30 PM Age: 50 years old Clinical indication: Injury or trauma; Fall; Blunt trauma (contusions or hematomas); Elbow; Left; Injury date: 06/07/2021 TECHNIQUE: Imaging protocol: XR Left elbow. Views: 3 or more views. COMPARISON: CR XR FOREARM LT 2V 06/07/2021 8:32 PM FINDINGS: Bones/joints: No acute fracture or dislocation. No significant arthritic deformities. There are no lytic skeletal lesions seen. No significant joint effusion visible. Soft tissues: No radiopaque foreign bodies. No pathologic soft tissue calcification. IMPRESSION: No acute fracture or dislocation.
--- NOTE | 2021-06-07 20:30 | XR_ITS ---
PROCEDURE INFORMATION: Exam: XR Left Hand Exam date and time: 06/07/2021 8:30 PM Age: 50 years old Clinical indication: Injury or trauma; Fall; Blunt trauma (contusions or hematomas); Hand; Left; Injury date: 06/07/2021 TECHNIQUE: Imaging protocol: XR Left hand. Views: 3 or more views. COMPARISON: CR XR HAND LT MIN 3V 06/27/2019 3:11 PM FINDINGS: Bones/joints: No acute appearing fracture or dislocation compared with 06/27/2019. There is a 1-2 mm calcification at the dorsal margin of the 4th DIP joint on oblique series 2, but this is chronic compared with 2019, arguing in favor of degenerative calcification rather than acute avulsion fracture. Slight narrowing and periarticular spurring of 2nd through 4th DIP joints best seen on the oblique view. Minimal chronic cortical irregularity of the proximal metaphysis of the 5th metacarpal bone, unchanged. The scapholunate joint is within the upper limits normal, joint space is less prominent compared with the prior exam from 2019; no acute sprain seen. There are no focal lytic skeletal lesions seen. Bones appear slightly demineralized. Soft tissues: Minimal soft tissue swelling.No radiopaque foreign bodies seen. IMPRESSION: 1. No acute fracture or dislocation. 2. Mild arthritic changes, as above.
[2021-06-07 21:43] VITALS: BP 145/88; PULSE 65; RESP 20; TEMP 36.8; O2SAT 97
--- NOTE | 2021-06-07 21:43 | [facility].EDGENADL ---
ED Disposition Clinical Impression: Sprain and strain of wrist Disposition: Home, Self-Care Condition on Discharge: Good Instructions: Sprain Additional Instructions: Please continue supportive care at home including Tylenol, nonsteroidal inflammatories and ice. You may wear your brace for support. If your condition worsens or any other concerning symptoms arise, please return to the emergency department for evaluation. Otherwise, please see your primary care doctor if your symptoms persist. Referrals: Perry Hicks MD [Primary Care Provider] - - Critical Care Critical Care Time: No Attestation: On 06/07/21, the high probability of a clinically significant, sudden or life threatening deterioration of the following system(s) required my full and direct attention, intervention and personal management. The time I documented below is in addition to time spent performing reported procedures but includes the following listed in this critical care notation. Medical Decision Making - [place] Inquiry Pt receiving controlled substance: No Vital Signs: 06/07/21 19:38 Temperature 98.1 F Temperature Source Oral Pulse Rate [Apical] 56 L Respiratory Rate 16 Blood Pressure [Right Arm] 169/103 H Blood Pressure Mean [Right Arm] 125 Blood Pressure Source [Right Arm] Automatic Cuff Blood Pressure Position [Right Arm] Sitting 02 Sat by Pulse Oximetry 98 Oxygen Delivery Method Room Air - Lab Data Lab results reviewed: Yes: I reviewed the patient's lab results. - Radiology Data #1 XR L elbow, forearm, wrist, hand: FINDINGS: Bones/joints: No acute appearing fracture or dislocation compared with 06/27/2019. There is a 1-2 mm calcification at the dorsal margin of the 4th DIP joint on oblique series 2, but this is chronic compared with 2019, arguing in favor of degenerative calcification rather than acute avulsion fracture. Slight narrowing and periarticular spurring of 2nd through 4th DIP joints best seen on the oblique view. Minimal chronic cortical irregularity of the proximal metaphysis of the 5th metacarpal bone, unchanged. The scapholunate joint is within the upper limits normal, joint space is less prominent compared with the prior exam from 2019; no acute sprain seen. There are no focal lytic skeletal lesions seen. Bones appear slightly demineralized. Soft tissues: Minimal soft tissue swelling.No radiopaque foreign bodies seen. IMPRESSION: 1. No acute fracture or dislocation. 2. Mild arthritic changes, as above. Medical Decision Narrative: Patient is a 50-year-old female presenting with chief complaint of injury to the left wrist. Differential diagnosis includes, but is not limited to, fracture, dislocation, contusion. On initial assessment, patient is hemodynamically stable, alert and oriented. Physical exam shows limited range of motion of digits and wrist due to pain but no significant swelling in comparison with right upper extremity. Patient has decreased sensation but this is symmetrical with the right upper extremity as well and patient states that this is baseline. Patient has good bilateral radial pulses. She was evaluate the x-ray of the left elbow, forearm, wrist and hand which were negative for acute fracture or dislocation. Patient was advised on supportive care at home, given a wrist splint for support and counseled to follow-up with her primary care doctor if her pain persists. She was discharged in stable condition. General Adult HPI - General Chief complaint: Extremity Injury, Upper Stated complaint: [id number] L arm injury Time Seen by Provider: 06/07/21 20:10 Mode of Arrival: Ambulatory Source of Information: Patient Limitations: No Limitations Description of Symptoms (Recalled from ER Triage Doc. by RN): patient states that at approximately 0400 she tripped at home and fell into a door frame injuring her left wrist. Reports pain 05/03. - History
== END 2021-06-07 21:55 | disposition home or self-care (01) ==
PROVIDERS: Emergency Provider Emergency Medicine; PCP Emergency Medicine
DX: S63.502A Unspecified sprain of left wrist, initial encounter (principal); W18.09XA Striking against other object with subsequent fall, initial encounter; Y92.019 Unspecified place in single-family (private) house as the place of occurrence of the external cause; K21.9 Gastro-esophageal reflux disease without esophagitis; M79.7 Fibromyalgia; E03.9 Hypothyroidism, unspecified; J44.9 Chronic obstructive pulmonary disease, unspecified; I10 Essential (primary) hypertension; E78.5 Hyperlipidemia, unspecified; Z79.899 Other long term (current) drug therapy
CPT/HCPCS: 73080; 73090; 73110; 73130; 99283

== ENCOUNTER → 2021-06-16 17:45 | Outpatient (CLI) | payer MEDICAID, SELFPAY ==
[2021-06-16 19:38] LABS: Amphetamine/Metha Screen,Urine Negative ng/ml (<1000); Barbiturates Screen,Urine Negative ng/ml (<200)
[2021-06-16 19:39] LABS: Benzodiazepines Screen,Urine Negative ng/ml (<200); Cannabinoid Screen,Urine Negative ng/ml (<50)
[2021-06-16 19:40] LABS: Cocaine Screen,Urine Negative ng/ml (<300)
[2021-06-16 19:41] LABS: Methadone Screen,Urine Negative ng/ml (<300); Opiate Screen,Urine Positive ng/ml (<300)
[2021-06-16 19:42] LABS: Phencyclidine Screen,Urine Negative ng/ml (<25)
== END ==
PROVIDERS: Visit Provider Emergency Medicine
DX: M54.2 Cervicalgia (principal)
CPT/HCPCS: 80305

== ENCOUNTER → 2021-07-15 13:43 | Outpatient (CLI) | payer MEDICAID, SELFPAY ==
[2021-07-15 14:26] LABS: Amphetamine/Metha Screen,Urine Negative ng/ml (<1000); Barbiturates Screen,Urine Negative ng/ml (<200)
[2021-07-15 14:27] LABS: Benzodiazepines Screen,Urine Negative ng/ml (<200); Cannabinoid Screen,Urine Negative ng/ml (<50)
[2021-07-15 14:28] LABS: Cocaine Screen,Urine Negative ng/ml (<300)
[2021-07-15 14:29] LABS: Methadone Screen,Urine Negative ng/ml (<300); Opiate Screen,Urine Positive ng/ml (<300)
[2021-07-15 14:30] LABS: Phencyclidine Screen,Urine Negative ng/ml (<25)
== END ==
PROVIDERS: Visit Provider Emergency Medicine
DX: M51.16 Intervertebral disc disorders with radiculopathy, lumbar region (principal)
CPT/HCPCS: 80305

== ENCOUNTER 2021-08-16 18:12 | Emergency (ER) | payer MEDICAID, SELFPAY ==
[2021-08-16 18:15] VITALS: BP 153/90; PULSE 97; RESP 16; TEMP 36.8; O2SAT 98; BMI 20.2
[2021-08-16 18:25] VITALS: BMI 20.2
--- NOTE | 2021-08-16 18:25 | CT_ITS ---
PROCEDURE INFORMATION: Exam: CT Thoracic Spine Without Contrast Exam date and time: 08/16/2021 6:25 PM Age: 50 years old Clinical indication: Injury or trauma; Fall; Blunt trauma (contusions or hematomas); Injury date: 08/15/2021; Injury details: Fell in shower TECHNIQUE: Imaging protocol: Computed tomography images of the thoracic spine without contrast. Radiation optimization: All CT scans at this facility use at least one of these dose optimization techniques: automated exposure control; mA and/or kV adjustment per patient size (includes targeted exams where dose is matched to clinical indication); or iterative reconstruction. COMPARISON: CT CERVICAL SPINE WO CON 08/16/2021 6:49 PM FINDINGS: Vertebrae: No acute fracture. Normal alignment. Discs/Spinal canal/Neural foramina: No significant disc protrusion. No severe spinal canal stenosis. No significant neural foraminal narrowing. Soft tissues: Unremarkable. IMPRESSION: No CT evidence of acute osseous abnormality.
--- NOTE | 2021-08-16 18:25 | XR_ITS ---
PROCEDURE INFORMATION: Exam: XR Pelvis Exam date and time: 08/16/2021 6:25 PM Age: 50 years old Clinical indication: Injury or trauma; Fall; Blunt trauma (contusions or hematomas); Bilateral; Pelvic region; Injury date: 08/15/2021; Injury details: Fell in shower; Prior surgery; Surgery date: 6+ months; Surgery type: Hysterectomy TECHNIQUE: Imaging protocol: XR pelvis. Views: 1 or 2 view. COMPARISON: CR XR PELVIS 1-2V 08/21/2020 4:20 PM FINDINGS: Bones/joints: Unremarkable. No acute fracture. Soft tissues: Unremarkable. IMPRESSION: No acute findings.
--- NOTE | 2021-08-16 18:25 | CT_ITS ---
PROCEDURE INFORMATION: Exam: CT Head Without Contrast Exam date and time: 08/16/2021 6:25 PM Age: 50 years old Clinical indication: Injury or trauma; Fall; Blunt trauma (contusions or hematomas); Without loss of consciousness; Injury date: 08/14/2021; Injury details: Fell in shower neck pain now TECHNIQUE: Imaging protocol: Computed tomography of the head without contrast. Radiation optimization: All CT scans at this facility use at least one of these dose optimization techniques: automated exposure control; mA and/or kV adjustment per patient size (includes targeted exams where dose is matched to clinical indication); or iterative reconstruction. COMPARISON: CT HEAD/BRAIN WO CON 12/25/2020 8:22 AM FINDINGS: Brain: There is no acute intracranial hemorrhage or abnormal extra-axial fluid collection identified. There is no intracranial mass effect or shift of midline structures. The jacobs-white differentiation is preserved throughout. Cerebral ventricles: There is no sulcal or ventricular effacement. The basilar cisterns are open. No hydrocephalus. Paranasal sinuses: The visualized sinuses are unremarkable. Mastoid air cells: There is no mastoid effusion detected. Bones/joints: No calvarial fracture or destructive osseous lesions are seen. Soft tissues: Unremarkable. IMPRESSION: No acute intracranial pathology identified by CT.
--- NOTE | 2021-08-16 18:25 | XR_ITS ---
PROCEDURE INFORMATION: Exam: XR Chest Exam date and time: 08/16/2021 6:25 PM Age: 50 years old Clinical indication: Injury or trauma; Fall; Blunt trauma (contusions or hematomas); Patient HX: Heavy smoker, PT fell Tuesday evening in shower. TECHNIQUE: Imaging protocol: XR of the chest. Views: 2 views. COMPARISON: CR XR CHEST 2V 08/21/2020 4:04 PM FINDINGS: Lungs: Unremarkable. No consolidation. Pleural spaces: Unremarkable. No pleural effusion. No pneumothorax. Heart/Mediastinum: Unremarkable. No cardiomegaly. Bones/joints: Unremarkable. IMPRESSION: No acute findings.
--- NOTE | 2021-08-16 18:25 | CT_ITS ---
PROCEDURE INFORMATION: Exam: CT Cervical Spine Without Contrast Exam date and time: 08/16/2021 6:25 PM Age: 50 years old Clinical indication: Injury or trauma; Fall; Blunt trauma; Injury date: 08/15/2021; Injury details: Fell in shower TECHNIQUE: Imaging protocol: Computed tomography images of the cervical spine without contrast. Radiation optimization: All CT scans at this facility use at least one of these dose optimization techniques: automated exposure control; mA and/or kV adjustment per patient size (includes targeted exams where dose is matched to clinical indication); or iterative reconstruction. COMPARISON: CT CERVICAL SPINE WO CON 08/12/2020 6:41 PM FINDINGS: Bones/joints: There is no anterior wedging deformity. No acute lucent fracture lines are visualized. Spondylitic changes are seen at the C5-C6 level. Discs/Spinal canal/Neural foramina: No severe central canal or neural foraminal stenosis demonstrated by CT. Lungs: Lung apices are normal. IMPRESSION: No acute cervical spinal injury demonstrated by CT.
--- NOTE | 2021-08-16 18:25 | CT_ITS ---
PROCEDURE INFORMATION: Exam: CT Lumbar Spine Without Contrast Exam date and time: 08/16/2021 6:25 PM Age: 50 years old Clinical indication: Injury or trauma; Fall; Blunt trauma (contusions or hematomas); Injury date: 08/15/2021; Prior surgery; Surgery date: 6+ months; Surgery type: Gb, hysterectomy TECHNIQUE: Imaging protocol: Computed tomography images of the lumbar spine without contrast. Radiation optimization: All CT scans at this facility use at least one of these dose optimization techniques: automated exposure control; mA and/or kV adjustment per patient size (includes targeted exams where dose is matched to clinical indication); or iterative reconstruction. COMPARISON: MR LUMBAR SPINE WO CON 10/01/2019 11:20 AM FINDINGS: Vertebrae: L4 limbus vertebral body unchanged from prior MRI. Grade 1 anterolisthesis of L3 over L4 related to degenerative changes with moderate posterior disc protrusion, slightly progressed from prior MRI. Discs/Spinal canal/Neural foramina: L3-L4 moderate discogenic degenerative changes stable from comparison lumbar spine MRI. Mediastinum: Multiple calcific densities of the spleen are likely related to prior granulomatous process. Stomach and bowel: By mm bone island bowel vein the left iliac body. Soft tissues: Unremarkable. IMPRESSION: Grade 1 anterolisthesis of L3 over L4 related to degenerative changes with moderate posterior disc protrusion, slightly progressed from prior MRI.
--- NOTE | 2021-08-16 18:27 | HMH.EDGENADL ---
ED Disposition Clinical Impression: Strain of thoracic spine Fall in bathtub Qualifiers: Encounter type: initial encounter Qualified Code(s): W18.2XXA - Fall in (into) shower or empty bathtub, initial encounter Cervical strain Qualifiers: Encounter type: initial encounter Qualified Code(s): S16.1XXA - Strain of muscle, fascia and tendon at neck level, initial encounter Lumbar strain Qualifiers: Encounter type: initial encounter Qualified Code(s): S39.012A - Strain of muscle, fascia and tendon of lower back, initial encounter Scalp contusion Qualifiers: Encounter type: initial encounter Qualified Code(s): S00.03XA - Contusion of scalp, initial encounter Disposition: Home, Self-Care Condition on Discharge: Good Instructions: How to Prevent Falls, DI for Closed Head Injury, DI for Neck Sprain, DI for Back Strain or Sprain Additional Instructions: Continue your current medications. Heating pad to neck and back as needed. Additional instructions for HEAD INJURY: See your physician as soon as possible for further evaluation. Return immediately if severe headache, vomiting, problems with vision or speech, numbness or weakness of the extremities, or severe neck pain. Referrals: Perry Hicks MD [Primary Care Provider] - - Critical Care Critical Care Time: No Attestation: On , the high probability of a clinically significant, sudden or life threatening deterioration of the following system(s) required my full and direct attention, intervention and personal management. The time I documented below is in addition to time spent performing reported procedures but includes the following listed in this critical care notation. Medical Decision Making - Acosta Inquiry Pt receiving controlled substance: No Acosta was queried for this patient: Yes Vital Signs: 08/16/21 18:15 Temperature 98.3 F Temperature Source Oral Pulse Rate [Right] 97 H Respiratory Rate 16 Blood Pressure [Right Arm] 153/90 H Blood Pressure Mean [Right Arm] 111 Blood Pressure Source [Right Arm] Automatic Cuff Blood Pressure Position [Right Arm] Sitting 02 Sat by Pulse Oximetry 98 Oxygen Delivery Method Room Air - Radiology Data #1 Image(s): Chest, Pelvis Image Reviewed: Yes I reviewed the patient's radiology image, Yes I have reviewed radiologist's interpretation Preliminary Findings: Normal/NAD PROCEDURE INFORMATION: Exam: XR Pelvis Exam date and time: 08/16/2021 6:25 PM Age: 50 years old Clinical indication: Injury or trauma; Fall; Blunt trauma (contusions or hematomas); Bilateral; Pelvic region; Injury date: 08/15/2021; Injury details: Fell in shower; Prior surgery; Surgery date: 6+ months; Surgery type: Hysterectomy TECHNIQUE: Imaging protocol: XR pelvis. Views: 1 or 2 view. COMPARISON: CR XR PELVIS 1-2V 08/21/2020 4:20 PM FINDINGS: Bones/joints: Unremarkable. No acute fracture. Soft tissues: Unremarkable. IMPRESSION: No acute findings. EDURE INFORMATION: Exam: XR Chest Exam date and time: 08/16/2021 6:25 PM Age: 50 years old Clinical indication: Injury or trauma; Fall; Blunt trauma (contusions or hematomas); Patient HX: Heavy smoker, PT fell Tuesday evening in shower. TECHNIQUE: Imaging protocol: XR of the chest. Views: 2 views. COMPARISON: CR XR CHEST 2V 08/21/2020 4:04 PM FINDINGS: Lungs: Unremarkable. No consolidation. Pleural spaces: Unremarkable. No pleural effusion. No pneumothorax. Heart/Mediastinum: Unremarkable. No cardiomegaly. Bones/joints: Unremarkable. IMPRESSION: No acute findings. - CT Data CT Scan: Head, C-Spine, T-Spine, L-Spine Time Received: 19:[address] Reviewed: Yes: I have viewed the radiologist's interpretation Findings Narrative: PROCEDURE INFORMATION: Exam: CT Thoracic Spine Without
[2021-08-16 20:17] VITALS: BP 150/88; PULSE 90; RESP 19; TEMP 36.7; O2SAT 98
== END 2021-08-16 20:18 | disposition home or self-care (01) ==
PROVIDERS: Emergency Provider Emergency Medicine; PCP Emergency Medicine
DX: S16.1XXA Strain of muscle, fascia and tendon at neck level, initial encounter (principal); S39.012A Strain of muscle, fascia and tendon of lower back, initial encounter; S29.012A Strain of muscle and tendon of back wall of thorax, initial encounter; S00.03XA Contusion of scalp, initial encounter; W18.2XXA Fall in (into) shower or empty bathtub, initial encounter
CPT/HCPCS: 70450; 71046; 72125; 72128; 72131; 72170; 99282

== ENCOUNTER 2021-09-07 13:57 | Emergency (ER) | payer MEDICAID, SELFPAY ==
[2021-09-07 14:08] VITALS: PULSE 89; RESP 18; O2SAT 97; BMI 25.7
--- NOTE | 2021-09-07 15:57 | XR_ITS ---
FINAL REPORT CLINICAL HISTORY: fall FINDINGS: SINGLE VIEW PELVIS: A single view of the pelvis was obtained. There is no acute fracture or dislocation. Vizualized joint spaces are normally aligned. Soft tissues are unremarkable. IMPRESSION: No acute bony abnormality. Reviewed, Interpreted and Dictated by Oswaldo Barrett III, MD Transcribed by Emilee Hardy Authenticated by Oswaldo Barrett III, MD on 09/07/2021 04:59:41 PM [facility]
--- NOTE | 2021-09-07 15:57 | XR_ITS ---
FINAL REPORT CLINICAL HISTORY: fall FINDINGS: 3 views of the left knee were obtained. There is no evidence of fracture or dislocation. The bony alignment is normal. The joint spaces are preserved. There is no evidence of joint effusion. No localized soft tissue abnormality is seen. There is no evidence of foreign body. IMPRESSION: No acute abnormality identified. Reviewed, Interpreted and Dictated by Oswaldo Barrett III, MD Transcribed by Emilee Hardy Authenticated by Oswaldo Barrett III, MD on 09/07/2021 04:59:38 PM [facility]
--- NOTE | 2021-09-07 15:57 | XR_ITS ---
FINAL REPORT CLINICAL HISTORY: fall FINDINGS: LEFT FOOT 3 views of the left foot were obtained. There is no acute fracture or dislocation. Visualized joint spaces are normally aligned. Soft tissues are unremarkable. IMPRESSION: No acute bony abnormality. Reviewed, Interpreted and Dictated by Oswaldo Barrett III, MD Transcribed by Emilee Hardy Authenticated by Oswaldo Barrett III, MD on 09/07/2021 04:59:42 PM [facility]
--- NOTE | 2021-09-07 15:57 | XR_ITS ---
FINAL REPORT CLINICAL HISTORY: fall FINDINGS: LEFT ANKLE Three views demonstrate no acute fracture or dislocation. The visualized joint spaces are normally aligned. The soft tissues are unremarkable. IMPRESSION: No acute process. Reviewed, Interpreted and Dictated by Oswaldo Barrett III, MD Transcribed by Emilee Hardy Authenticated by Oswaldo Barrett III, MD on 09/07/2021 04:59:39 PM [facility]
[2021-09-07 15:58] VITALS: BMI 20.2
[2021-09-07 16:00] VITALS: BP 134/87; PULSE 78; RESP 20; TEMP 36.7; O2SAT 98; BMI 20.8
--- NOTE | 2021-09-07 16:02 | PC.NURSE ---
Patient to xray with robotic weld technician by wheelchair
--- NOTE | 2021-09-07 16:05 | HMH.EDGENADL ---
ED Disposition Clinical Impression: Ankle sprain Disposition: Home, Self-Care Condition on Discharge: Good Instructions: Ankle Sprain Additional Instructions: Please follow up with your primary care physician in 2-3 days for further management. Please take tylenol and ibuprofen for pain control. Please use ice for swelling and comfort. Please return for worsening swelling, color change or any other concerns. Referrals: Perry Hicks MD [Primary Care Provider] - Forms: Work/School Release - Critical Care Critical Care Time: No Attestation: On 09/07/21, the high probability of a clinically significant, sudden or life threatening deterioration of the following system(s) required my full and direct attention, intervention and personal management. The time I documented below is in addition to time spent performing reported procedures but includes the following listed in this critical care notation. Medical Decision Making - Medical Records Medical records reviewed: Yes: I reviewed the patient's medical records. - Acosta Inquiry Pt receiving controlled substance: No Vital Signs: 09/07/21 14:08 09/07/21 16:00 09/07/21 18:16 Temperature 98.1 F 98 F Temperature Source Oral Oral Pulse Rate 78 Pulse Rate [Left Radial] 89 78 Respiratory Rate 18 20 16 Blood Pressure 125/74 Blood Pressure [Right Arm] 134/87 Blood Pressure Mean [Right Arm] 102 Blood Pressure Position Sitting 02 Sat by Pulse Oximetry 97 98 Oxygen Delivery Method Room Air Room Air Room Air - Lab Data Lab results reviewed: Yes: I reviewed the patient's lab results. Orders (Tests/Meds): ED MEDICATIONS Discontinued Medications Generic Name Dose Route Start Last Admin Trade Name Mikeq PRN Reason Stop Dose Admin Acetaminophen 1,000 mg 09/07/21 15:57 09/07/21 16:12 Acetaminophen 500mg Tab PO 09/07/21 15:58 1,000 mg ONCE ONE Administration Ibuprofen 600 mg 09/07/21 15:57 09/07/21 16:12 Ibuprofen 600 Mg Tablet PO 09/07/21 15:58 600 mg ONCE ONE Administration ORDERS Category Date Time Status Covid-19 Nasal PCR (H) Routine Lab 09/07/21 16:00 Received Medical Decision Narrative: Miss Kamara is a 50 yo female presenting with isolated LLE pain follwoing a mechanicall fall yesterday. Patient also reports respiratory sx for 4d. Patient is afebrile and hemodynamically stable on arrival. Physical exam patient is breathing comfortably, equal breath sounds bilaterally. No suspicion for pneumonia at this time given current clinical picture and patient well appearing. Patietn swabbed for COVID 19 pending results. XR of the foot, ankle, knee and pelvis are obtained for further evaluation results are non actionable. Patient is given tylenol and ibuprofen for pain control. Patient is given a boot for mobility and comfort and informed to fu w/ her pcp. Patietn instruted if symptoms don't improve may require more extensive imaging like MR and physical therapy. Patient understands plan and is discharged in stable condition. General Adult HPI - General Chief complaint: PAIN Stated complaint: a/o fell twisted left leg and foot Time Seen by Provider: 09/07/21 14:15 Mode of Arrival: Wheelchair Source of Information: Patient, Significant Other Limitations: No Limitations Description of Symptoms (Recalled from ER Triage Doc. by RN): c/o twisting her left foot/leg while trying to get out of bed yesterday. c/o cough, LOPEZ and diarrhea for 4 days - History of Present Illness HPI narrative: Miss Kamara is a 50 yo female w/ no significant PMH who presents to the ED for isolated (R) ankle pain. Patient reports she slipped out of bed twisting her (L) ankle. She denies hitting head, -LOC. Patient reports mild (L) hip pain, (L) knee pain and severe (L) ankle pain. Patient reports difficulty ambulating due ot pain. No open lacerations or abrasions. Patient is neurovascularly intact. No sensory or motor changes. Full ROM. Of note: Sara
[2021-09-07 18:16] VITALS: BP 125/74; PULSE 78; RESP 16; TEMP 36.6; O2SAT 98
== END 2021-09-07 18:17 | disposition home or self-care (01) ==
LOC: UTC 14:09 → ER 14:46
PROVIDERS: Emergency Provider Student in an Organized Health Care Education/Training Program; PCP Emergency Medicine
DX: S93.402A Sprain of unspecified ligament of left ankle, initial encounter (principal); W06.XXXA Fall from bed, initial encounter; Y92.019 Unspecified place in single-family (private) house as the place of occurrence of the external cause; Z20.822 Contact with and (suspected) exposure to COVID-19; F41.8 Other specified anxiety disorders; K21.9 Gastro-esophageal reflux disease without esophagitis; E78.5 Hyperlipidemia, unspecified; I10 Essential (primary) hypertension; M79.7 Fibromyalgia; E03.9 Hypothyroidism, unspecified
CPT/HCPCS: 29515; 72170; 73560; 73600; 73620; 99282; C9803; U0003; U0005

== ENCOUNTER → 2021-10-01 15:46 | Outpatient (CLI) | payer MEDICAID, SELFPAY | PROVIDERS: PCP Emergency Medicine; Visit Provider Physician Assistant | DX: R94.31 Abnormal electrocardiogram [ECG] [EKG] (principal); I49.9 Cardiac arrhythmia, unspecified | CPT/HCPCS: 93225 ==

== ENCOUNTER 2021-10-09 13:25 | Emergency (ER) | payer MEDICAID, SELFPAY ==
[2021-10-09 13:26] VITALS: BP 171/90; PULSE 111; RESP 22; TEMP 36.7; O2SAT 98; BMI 18.3
--- NOTE | 2021-10-09 13:52 | XR_ITS ---
FINAL REPORT CLINICAL HISTORY: Fall, x 1 day ago. pain FINDINGS: LUMBAR SPINE SERIES Two views demonstrate no fracture. Mild degenerative changes are present. There is mild anterolisthesis of L3 on 4. IMPRESSION: Degenerative change and anterolisthesis of L3 on 4. Reviewed, Interpreted and Dictated by Oswaldo Barrett III, MD Transcribed by Janice Alvarado Authenticated by Oswaldo Barrett III, MD on 10/09/2021 03:02:59 PM [facility]
--- NOTE | 2021-10-09 13:52 | XR_ITS ---
FINAL REPORT CLINICAL HISTORY: fall, pain FINDINGS: SACRUM/COCCYX 2 views were obtained. There is no acute fracture or dislocation. The joint spaces are intact. The sacral arches are intact. There is no soft tissue abnormality. IMPRESSION: No acute bony abnormality. Reviewed, Interpreted and Dictated by Owsaldo Barrett III, MD Transcribed by Sylvia James Authenticated by Oswaldo Barrett III, MD on 10/09/2021 03:03:11 PM [facility]
--- NOTE | 2021-10-09 14:14 | CT_ITS ---
FINAL REPORT TECHNIQUE: Axial images through the pelvis were performed by computed tomography. Sagittal and coronal reformatted images were obtained and reviewed. This study was performed with techniques to keep radiation doses as low as reasonably achievable (ALARA). Individualized dose reduction techniques using automated exposure control or adjustment of mA and/or kV according to the patient's size were employed. CLINICAL HISTORY: fall, pain FINDINGS: The bony structures are intact without evidence of fracture. No bony mass is identified. No soft tissue mass is seen. IMPRESSION: No acute process. Reviewed, Interpreted and Dictated by Oswaldo Barrett III, MD Transcribed by Janice Alvarado Authenticated by Oswaldo Barrett III, MD on 10/09/2021 03:02:[address] [facility]
--- NOTE | 2021-10-09 14:27 | PC.NURSE ---
Pt ambulating to [facility] at this time.
--- NOTE | 2021-10-09 14:34 | CT_ITS ---
FINAL REPORT CLINICAL HISTORY: fall, pain COMPARISON: Plain films dated October 09, 2021 FINDINGS: Axial imaging of the lumbar spine was obtained without contrast. Sagittal and coronal reformatted images were also obtained and reviewed.This study was performed with techniques to keep radiation doses as low as reasonably achievable (ALARA). Individualized dose reduction techniques using automated exposure control or adjustment of mA and/or kV according to the patient's size were employed. There is no fracture. There is mild anterolisthesis of L3 on L4. There are mild and moderate degenerative changes. There are multilevel bulges. There is mild central canal stenosis with an AP thecal sac diameter of 7 mm at L3-L4. There is a presumed bone island in the medial left iliac bone. IMPRESSION: Multilevel degenerative change without acute bony abnormality. Reviewed, Interpreted and Dictated by Oswaldo Barrett III, MD Transcribed by Gallito Danielson Authenticated by Oswaldo Barrett III, MD on 10/09/2021 03:40:[address] [facility]
--- NOTE | 2021-10-09 14:52 | HMH.EDGENADL ---
ED Disposition Clinical Impression: Sacral back pain Disposition: Left Against Medical Advice Condition on Discharge: Good Referrals: Perry Hicks MD [Primary Care Provider] - - Critical Care Critical Care Time: No Attestation: On 10/09/21, the high probability of a clinically significant, sudden or life threatening deterioration of the following system(s) required my full and direct attention, intervention and personal management. The time I documented below is in addition to time spent performing reported procedures but includes the following listed in this critical care notation. Medical Decision Making - Medical Records Medical records reviewed: Yes: I reviewed the patient's medical records. - Acosta Inquiry Pt receiving controlled substance: No Vital Signs: 10/09/21 13:26 Temperature 98.1 F Temperature Source Oral Pulse Rate [Right Radial] 111 H Respiratory Rate 22 Blood Pressure [Right Arm] 171/90 H Blood Pressure Mean [Right Arm] 117 Blood Pressure Source [Right Arm] Automatic Cuff Blood Pressure Position [Right Arm] Standing 02 Sat by Pulse Oximetry 98 Oxygen Delivery Method Room Air - Lab Data Lab results reviewed: Yes: I reviewed the patient's lab results. Orders (Tests/Meds): ED MEDICATIONS Generic Name Dose Route Start Last Admin Trade Name Freq PRN Reason Stop Dose Admin Methocarbamol 1,000 mg 10/09/21 21:00 Methocarbamol 500mg Tablet PO 11/08/21 20:59 BID SHANNAN Discontinued Medications Generic Name Dose Route Start Last Admin Trade Name Freq PRN Reason Stop Dose Admin Acetaminophen 1,000 mg 10/09/21 14:15 10/09/21 14:39 Acetaminophen 500mg Tab PO 10/09/21 14:16 1,000 mg ONCE ONE Administration Lidocaine 1 each 10/09/21 14:16 10/09/21 14:39 Lidocaine 5% Transdermal Patch TP 10/09/21 14:17 1 each ONCE ONE Administration Morphine Sulfate 4 mg 10/09/21 14:15 Morphine 8mg/Ml Syringe IV 10/09/21 14:16 ONCE ONE Morphine Sulfate 4 mg 10/09/21 14:34 10/09/21 14:52 Morphine 4mg/Ml Syringe IV 10/09/21 14:35 Not Given ONCE ONE ORDERS Category Date Time Status CT lumbar spine wo con Routine Cat Scan 10/09/21 14:34 Taken Medical Decision Narrative: Patient is a 50-year-old female with sacral pain and lumbar back pain. Differential diagnosis includes, but is not limited to, fracture, contusion, other. On initial exam, patient is hemodynamically stable nontoxic-appearing. She appears to be in moderate to severe pain and will not sit down due to pain. She was treated with p.o. Tylenol, IM Toradol, p.o. Robaxin and a lidocaine patch. She was evaluated with x-rays of the lumbar spine and sacrum and CT lumbar spine and bony pelvis. XR are negative for acute findings aside from degenerative changes and anterolisthesis of L3 on 4. CT bony pelvis is negative for acute findings. Patient wished to leave prior to completion of the workup and left prior to final result of CT L Spine. She has an appt with per PCP today and is headed there for f/u. General Adult HPI - General Chief complaint: PAIN Stated complaint: butt pains, can't sit down Time Seen by Provider: 10/09/21 13:35 Mode of Arrival: Ambulatory Limitations: No Limitations Description of Symptoms (Recalled from ER Triage Doc. by RN): Pt states that she fell onto the concrete, injuring her tailbone, yesterday while taking her dog outside. Pt c/o pain at tailbone. - History of Present Illness HPI narrative: Patient is a 50-year-old female with a history significant of recent fractures of the left foot is presenting for chief complaint of severe sacral pain after falling on concrete yesterday. She states she was walking her dog when she slipped and fell straight on her butt. She denies hitting her head or losing consciousness. Her pain in her lower back and sacrum is so severe she has difficulty laying flat but she is able to ambulate. No other injuries or concer
--- NOTE | 2021-10-09 15:32 | PC.NURSE ---
Scarlet RN went in to assess patient. She advised she could not take the morphine that was ordered and she was hurting and could not sit down comfortably but felt like her legs were going to give out. I advised her that if she felt like her legs were going to give out she needed to try and sit down because that would was a safety risk for her and I did not want her falling. Pt attempted to sit on the edge of the bed, then she started talking about how she had an appt with Dr. Hicks and wanted to know how much longer she would be here. I advised her I did not know how much longer due to MD being in room with critical patient and pt volume at this time. Pt advised she would just go ahead and leave and go see so he could help her. She advised she may come back to the ER later this evening, I advised her that was fine and that was her choice but I needed her to sign an AMA form prior to leaving. Pt agreeable, signed AMA form and left without any other issues. Notified ER MD. Called Dr. Hicks's office to advise them that pt was going to be coming to their office.
[2021-10-09 15:46] VITALS: BP 160/70; PULSE 70; RESP 16; TEMP 36.8; O2SAT 98
== END 2021-10-09 15:48 | disposition left against medical advice (07) ==
PROVIDERS: Emergency Provider Emergency Medicine; PCP Emergency Medicine
DX: M54.18 Radiculopathy, sacral and sacrococcygeal region (principal); R94.31 Abnormal electrocardiogram [ECG] [EKG]; R06.00 Dyspnea, unspecified; R40.0 Somnolence; I10 Essential (primary) hypertension; K21.9 Gastro-esophageal reflux disease without esophagitis; E78.5 Hyperlipidemia, unspecified; E03.9 Hypothyroidism, unspecified; K44.9 Diaphragmatic hernia without obstruction or gangrene; E55.9 Vitamin D deficiency, unspecified; M54.50 Low back pain, unspecified; G89.29 Other chronic pain; M19.90 Unspecified osteoarthritis, unspecified site; M79.7 Fibromyalgia; J44.9 Chronic obstructive pulmonary disease, unspecified; F32.A Depression, unspecified; F41.9 Anxiety disorder, unspecified; G43.909 Migraine, unspecified, not intractable, without status migrainosus; G40.909 Epilepsy, unspecified, not intractable, without status epilepticus; F17.290 Nicotine dependence, other tobacco product, uncomplicated; Z79.1 Long term (current) use of non-steroidal anti-inflammatories (NSAID); Z79.51 Long term (current) use of inhaled steroids; Z79.899 Other long term (current) drug therapy; Z88.0 Allergy status to penicillin; Z88.1 Allergy status to other antibiotic agents; Z88.3 Allergy status to other anti-infective agents; Z88.5 Allergy status to narcotic agent; Z82.49 Family history of ischemic heart disease and other diseases of the circulatory system; Z80.9 Family history of malignant neoplasm, unspecified; Z83.3 Family history of diabetes mellitus; Z83.438 Family history of other disorder of lipoprotein metabolism and other lipidemia
CPT/HCPCS: 72100; 72131; 72192; 72220; 99285

== ENCOUNTER 2021-11-17 13:24 | Emergency (ER) | payer MEDICAID, SELFPAY ==
[2021-11-17 13:42] LABS: POC Glucose,Bedside 110 (70-110)
[2021-11-17 13:43] VITALS: BP 168/99; PULSE 103; RESP 18; TEMP 36.8; O2SAT 98; BMI 19.4
--- NOTE | 2021-11-17 13:57 | CT_ITS ---
FINAL REPORT TECHNIQUE: Axial images were performed through the brain.This study was performed with techniques to keep radiation doses as low as reasonably achievable, (ALARA). Individualized dose reduction techniques using automated exposure control or adjustment of mA and/or kV according to the patient''s size were employed. CLINICAL HISTORY: left arm/hand numbness/weakness COMPARISON: August 16, 2021 FINDINGS: There is mild bifrontal atrophy, greater than expected for patient age. The ventricles are normal in size for the degree of atrophy. There is no extra-axial fluid or midline shift. There is no evidence of acute hemorrhage or mass. IMPRESSION: Mild bifrontal atrophy, greater than expected for patient age. No acute intracranial process. Reviewed, Interpreted and Dictated by Skip Yañez MD Transcribed by Gallito Danielson Authenticated by Skip Yañez MD on 11/17/2021 03:16:20 PM [facility]
--- NOTE | 2021-11-17 13:58 | HMH.EDGENADL ---
ED Disposition Clinical Impression: Paresthesia of left upper extremity Disposition: Home, Self-Care Condition on Discharge: Good Additional Instructions: follow up PCP tomorrow, return for worse Prescriptions: methylPREDNISolone [Medrol 4mg tab] 4 mg PO DIRECTED #21 tab Transmission Status: Received by [facility] Referrals: Perry Hicks MD [Primary Care Provider] - - Critical Care Critical Care Time: No Attestation: On 11/17/21, the high probability of a clinically significant, sudden or life threatening deterioration of the following system(s) required my full and direct attention, intervention and personal management. The time I documented below is in addition to time spent performing reported procedures but includes the following listed in this critical care notation. Medical Decision Making - Medical Records Medical records reviewed: Yes: I reviewed the patient's medical records. - Acosta Inquiry Pt receiving controlled substance: No Vital Signs: 11/17/21 13:43 11/17/21 14:31 11/17/21 14:53 Temperature 98.2 F Temperature Source Oral Pulse Rate 68 89 Pulse Rate [Left Radial] 103 H Respiratory Rate 18 Blood Pressure 189/140 H 139/105 H Blood Pressure [Right Arm] 168/99 H Blood Pressure Mean 166 121 Blood Pressure Mean [Right Arm] 122 Blood Pressure Source Blood Pressure Position 02 Sat by Pulse Oximetry 98 97 99 Oxygen Delivery Method 11/17/21 17:08 Temperature 98.2 F Temperature Source Oral Pulse Rate 89 Pulse Rate [Left Radial] Respiratory Rate 18 Blood Pressure 139/105 H Blood Pressure [Right Arm] Blood Pressure Mean Blood Pressure Mean [Right Arm] Blood Pressure Source Automatic Cuff Blood Pressure Position Sitting 02 Sat by Pulse Oximetry Oxygen Delivery Method Room Air - Lab Data Lab Results 11/17/21 13:35: POC Glucose 110 11/17/21 15:03: WBC 5.9, RBC 4.00 L, Hgb 12.8, Hct 39.3, MCV 98.4, MCH 32.1 H, MCHC 32.6, RDW 12.7, Plt Count 314, MPV 6.8 L, Neut % (Auto) 51.5, Lymph % (Auto) 40.9, [place] % (Auto) 5.0, Eos % (Auto) 1.9, Baso % (Auto) 0.7, Neut # (Auto) 3.0, Lymph # (Auto) 2.4, [place] # (Auto) 0.3, Eos # (Auto) 0.1, Baso # (Auto) 0.0 11/17/21 15:03: Sodium 135 L, Potassium 4.2, Chloride 97 L, Carbon Dioxide 27, Anion Gap 15.2 H, BUN 7, Creatinine 0.50 L, Estimated Creat Clear 113, Estimated GFR 131, Est GFR ( Amer) 158, Glucose 104 H, Calcium 10.1, Total Bilirubin 0.7, AST 127 H, ALT 51, Alkaline Phosphatase 136 H, Total Protein 8.2, Albumin 4.8, Globulin 3.4 H, Albumin/Globulin Ratio 1.4 Result diagrams: 11/17/21 15:03 11/17/21 15:03 Orders (Tests/Meds): ED MEDICATIONS Discontinued Medications Generic Name Dose Route Start Last Admin Trade Name Freq PRN Reason Stop Dose Admin Methylprednisolone Sodium Succinate 125 mg 11/17/21 16:51 11/17/21 17:06 Methylprednisolone Sod Succ 125mg Vial IM 11/17/21 16:52 Not Given ONCE ONE ORDERS Category Date Time Status ECG Request by /Nse Stat Y 11/17/21 13:57 Ordered Medical Decision Narrative: 452 pm reeval, left hand blueprint reader and arm strength and parasthesias improving per patient report no concern for stroke on mri or evolving deficit ok with plan to f/u Dr Hicks tomorrow General Adult HPI - General Chief complaint: PAIN Stated complaint: left arm numbness Time Seen by Provider: 11/17/21 13:25 Mode of Arrival: Ambulatory Limitations: No Limitations Description of Symptoms (Recalled from ER Triage Doc. by RN): pt to ed c/o left arm numbness that started last night. pt states she called her pcp who stated to come to ed vs the office. pt states she is not having any pain. pt reports a hx of hand numbness due to a previous c-spine injury. pt states she also wants her nose evaluated because a picture fell on it a week ago and it is swollen. - History of Present Illness HPI narrative: left arm/hand numbness and weakness sudden onse
[2021-11-17 14:31] VITALS: BP 189/140; PULSE 68; O2SAT 97
[2021-11-17 14:53] VITALS: BP 139/105; PULSE 89; O2SAT 99
[2021-11-17 15:12] LABS: Basophils % 0.7 % (0.1-2.0); Eosinophils # 0.1 K/mm3 (0.0-0.4); Eosinophils % 1.9 % (0.1-12.0); Hematocrit 39.3 % (37.0-47.0); Hemoglobin 12.8 g/dL (12.2-16.2); Lymphocytes # 2.4 K/mm3 (0.7-4.5); Lymphocytes % 40.9 % (10-50); Mean Corpuscular HGB Conc 32.6 g/dL (31.8-35.4); Mean Corpuscular Hemoglobin 32.1 pg (27.0-31.2); Mean Corpuscular Volume 98.4 fl (81-99); Mean Platelet Volume 6.8 fl (7.4-10.4); Monocytes # 0.3 K/mm3 (0.1-1.0); Neutrophils % 51.5 % (37.0-80.0); Platelet Count 314 K/mm3 (142-424); Red Cell Distribution Width 12.7 % (11.5-17.5); White Blood Count 5.9 K/mm3 (4.8-10.8)
[2021-11-17 15:28] LABS: Chloride 97 mmol/L (98-107); Sodium 135 mmol/L (136-145)
[2021-11-17 15:29] LABS: Potassium 4.2 mmoL/L (3.5-5.1)
[2021-11-17 15:31] LABS: Alanine Aminotransferase 51 U/L (12-78); Albumin Level 4.8 g/dl (3.5-5.0); Albumin/Globulin Ratio 1.4 (1.1-1.8); Alkaline Phosphatase 136 U/L (38-126); Anion Gap 15.2 mEq/L (5-15); Aspartate Amino Transferase 127 U/L (14-36); Bilirubin,Total 0.7 mg/dl (0.2-1.3); Blood Urea Nitrogen 7 mg/dl (7-17); Carbon Dioxide 27 mmol/L (22.0-30.0); Creatinine Clearance Estimated 113 mL/min (50-200); Estimated Glomerular Filt Rate 131 ml/min (>60); GFR (African American) 158 ML/MIN (>60); Globulin 3.4 g/dL (1.3-3.2); Total Protein,Serum 8.2 g/dl (6.3-8.2)
[2021-11-17 15:32] LABS: Calcium 10.1 mg/dl (8.4-10.2); Glucose 104 mg/dl (74-100)
--- NOTE | 2021-11-17 15:42 | PC.NURSE ---
pt reporting her IV is pinching her, requests IV be removed.
--- NOTE | 2021-11-17 15:43 | PC.NURSE ---
JULIO COLMENARES at
--- NOTE | 2021-11-17 15:50 | MR_ITS ---
PROCEDURE INFORMATION: Exam: MR Head Without Contrast Exam date and time: 11/17/2021 4:11 PM Age: 51 years old Clinical indication: Weakness, extremity; Left; Additional info: R/O stroke, left arm weakness. TECHNIQUE: Imaging protocol: MR of the head without contrast. COMPARISON: CT HEAD/BRAIN WO CON 11/17/2021 2:08 PM FINDINGS: Brain: There is no abnormal diffusion weighted signal intensity to suggest an acute ischemic event. There is mild atrophy and chronic white matter microangiopathic changes. Cerebral ventricles: There is mild compensatory ventricular dilation. Bones/joints: Unremarkable. Paranasal sinuses: Normal as visualized. No acute sinusitis. Mastoid air cells: Normal as visualized. No mastoid effusion. Orbital cavities: Unremarkable. Soft tissues: Unremarkable. Other vasculature: Normal vascular flow voids are present. Other findings: There is no abnormal suceptibility to suggest hemorrhage. IMPRESSION: 1. There is no abnormal diffusion weighted signal intensity to suggest an acute ischemic event. 2. There is no abnormal suceptibility to suggest hemorrhage. 3. No acute intracranial process is identified.
--- NOTE | 2021-11-17 15:52 | PC.NURSE ---
contacted MRI staff per ER request, Krystyna states she can fit pt in now for scan. Notified ER .
--- NOTE | 2021-11-17 15:55 | PC.NURSE ---
went to [facility] for update pt on plan for pt to have MRI, pt is requesting to leave and come back later and have MRI done. Informed pt MRI staff is only here until 6 and they have scheduled pts until then, they are working pt into their schedule now, we can guarantee that MRI can be done later on today if/when she returns. Pt sister at [facility] encouraging pt to stay and have MRI done. Pt reports has had MRI's done in the past, states she have previously had to be medicated prior to scans. Informed pt I could ask ER MD about this but we would possibly need to restick her for an IV, pt refused additional IV stick. 1600- pt is in agreeance for MRI, Krystyna from MRI at [facility].
--- NOTE | 2021-11-17 16:04 | PC.NURSE ---
Pt and sister to MRI at this time.
--- NOTE | 2021-11-17 16:27 | XR_ITS ---
PROCEDURE INFORMATION: Exam: XR Cervical Spine Exam date and time: 11/17/2021 4:32 PM Age: 51 years old Clinical indication: Neck pain; Additional info: Chronic neck pain, left arm/hand paresthesia TECHNIQUE: Imaging protocol: XR of the cervical spine. Views: 2 or 3 views. COMPARISON: CT CERVICAL SPINE WO CON 08/16/2021 6:49 PM FINDINGS: Bones/joints: There is degenerative disc space narrowing at C5-C6 with prominent uncovertebral spurs, greater on the left. This is probably associated with left foraminal compromise but oblique views or cross-sectional imaging would be more accurate in this assessment. There is no evidence of fracture or destructive process. Soft tissues: Unremarkable. IMPRESSION: 1. There is degenerative disc space narrowing at C5-C6 with prominent uncovertebral spurs, greater on the left. This is probably associated with left foraminal compromise but oblique views or cross-sectional imaging would be more accurate in this assessment. 2. There is no evidence of fracture or destructive process.
--- NOTE | 2021-11-17 16:41 | PC.NURSE ---
JULIO COLMENARES speaking with NANCY at this time.
--- NOTE | 2021-11-17 16:43 | PC.NURSE ---
pt returned from MRI
--- NOTE | 2021-11-17 16:47 | PC.NURSE ---
JULIO COLMENARES at
[2021-11-17 17:08] VITALS: BP 139/105; PULSE 89; RESP 18; TEMP 36.8; O2SAT 98
== END 2021-11-17 17:11 | disposition home or self-care (01) ==
PROVIDERS: Emergency Provider Emergency Medicine; PCP Emergency Medicine
DX: R07.89 Other chest pain (principal); R94.31 Abnormal electrocardiogram [ECG] [EKG]; R20.2 Paresthesia of skin; I10 Essential (primary) hypertension; E78.5 Hyperlipidemia, unspecified; K21.9 Gastro-esophageal reflux disease without esophagitis; E03.9 Hypothyroidism, unspecified; M54.2 Cervicalgia; M54.9 Dorsalgia, unspecified; G89.29 Other chronic pain; G43.909 Migraine, unspecified, not intractable, without status migrainosus; G40.909 Epilepsy, unspecified, not intractable, without status epilepticus; K44.9 Diaphragmatic hernia without obstruction or gangrene; E55.9 Vitamin D deficiency, unspecified; J98.4 Other disorders of lung; J44.9 Chronic obstructive pulmonary disease, unspecified; F32.A Depression, unspecified; F41.9 Anxiety disorder, unspecified; F17.290 Nicotine dependence, other tobacco product, uncomplicated; Z79.51 Long term (current) use of inhaled steroids; Z79.899 Other long term (current) drug therapy; Z88.0 Allergy status to penicillin; Z88.1 Allergy status to other antibiotic agents; Z88.3 Allergy status to other anti-infective agents; Z88.5 Allergy status to narcotic agent; Z85.9 Personal history of malignant neoplasm, unspecified; Z82.49 Family history of ischemic heart disease and other diseases of the circulatory system; Z83.3 Family history of diabetes mellitus; Z83.438 Family history of other disorder of lipoprotein metabolism and other lipidemia; Z80.9 Family history of malignant neoplasm, unspecified
CPT/HCPCS: 70450; 70551; 72040; 80053; 82962; 85025; 99285

== ENCOUNTER → 2021-11-20 12:07 | Outpatient (CLI) | payer MEDICAID, SELFPAY ==
--- NOTE | 2021-11-20 12:20 | MR_ITS ---
FINAL REPORT CLINICAL HISTORY: Brachial plexopathy. pt has numbness down left arm. FINDINGS: Multi planar MR imaging was obtained of the cervical spine. There is abnormal decreased signal throughout the cervical discs. The vertebrae are of normal height. There is no malalignment. The cervical cord demonstrates normal signal and configuration. C2-C3: There is no evidence of significant disc bulge or protrusion. There is no significant facet hypertrophy. C3-C4: There is no evidence of significant disc bulge or protrusion. There is no significant facet hypertrophy. C4-C5: There is no evidence of significant disc bulge or protrusion. There is no significant facet hypertrophy. C5-C6: Mild diffuse disc bulge and endplate hypertrophy are present. There is mild spinal and mild to moderate bilateral neural foraminal narrowing. C6-C7: Mild diffuse disc bulge and endplate hypertrophy are present. There is mild bilateral neural foraminal narrowing. C7-T1: There is no evidence of significant disc bulge or protrusion. There is no significant facet hypertrophy. IMPRESSION: Diffuse disc bulges and endplate hypertrophy at C5-6 and C6-7 with bilateral neural foraminal narrowing. Reviewed, Interpreted and Dictated by Skip Yañez MD Transcribed by Janice Alvarado Authenticated by Skip Yañez MD on 11/20/2021 03:18:35 PM [facility]
--- NOTE | 2021-11-20 13:23 | CT_ITS ---
FINAL REPORT TECHNIQUE: Axial images were obtained through the chest without contrast. This study was performed with techniques to keep radiation doses as low as reasonably achievable (ALARA). Individualized dose reduction techniques using automated exposure control or adjustment of mA and/or kV according to the patient's size were employed. CLINICAL HISTORY: chest pain/dyspnea FINDINGS: CT CHEST W/O CONTRAST Note that this exam was ordered as a without and with contrast. The patient declined contrast so the exam was done without contrast only. There is no significant mediastinal mass or adenopathy. There is a small nodule in the posterior aspect of the right upper lobe measuring approximately 4 mm. This is well seen on image 21 of series 2 and on image 61 of series 3. The heart size is normal. There is no pericardial or pleural effusion. Limited images of the upper abdomen are unremarkable. IMPRESSION: 4 mm nodule in the right upper lobe seen on image 61 of series 3, indeterminate. Recommend follow-up CT in 1 year Reviewed, Interpreted and Dictated by Skip Yañez MD Transcribed by Sylvia James Authenticated by Skip Yañez MD on 11/20/2021 02:32:04 PM [facility]
== END ==
PROVIDERS: PCP Emergency Medicine; Visit Provider Internal Medicine
DX: R06.00 Dyspnea, unspecified (principal); R07.89 Other chest pain; G54.0 Brachial plexus disorders; F41.9 Anxiety disorder, unspecified; R20.0 Anesthesia of skin
CPT/HCPCS: 71250; 73218

== ENCOUNTER → 2021-11-27 11:21 | Outpatient (CLI) | payer MEDICAID, SELFPAY ==
--- NOTE | 2021-11-27 | ECG_ITS ---
APPROVED REPORT Exam: Resting ECG HR:75 bpm ECG Measurements Heart Rate 75 AXES NH 173 P 60 QRSd 92 QRS 69 QT 396 T 46 QTc 425 Conclusion SINUS RHYTHM NORMAL ECG UNCONFIRMED REPORT Electronically signed by : Xavier Rivas MD 11/28/2021 09:04:57
--- NOTE | 2021-11-27 11:32 | CT_ITS ---
FINAL REPORT TECHNIQUE: Axial images were obtained of the cervical spine by computed tomography. Coronal and sagittal reconstruction process performed. This study was performed with techniques to keep radiation doses as low as reasonably achievable (ALARA). Individualized dose reduction techniques using automated exposure control or adjustment of mA and/or kV according to the patient''s size were employed. CLINICAL HISTORY: CERVICAL MYELOPATHY FINDINGS: Cervical vertebrae show normal height. There is moderate disc space narrowing at C5-C6 with anterior and posterior osteophyte formation. There is mild right and moderate left neural foraminal narrowing at C5-C6. There is no malalignment. The facets are properly aligned. IMPRESSION: Degenerative disc disease at C5-C6 with left greater than right neural foraminal narrowing. Reviewed, Interpreted and Dictated by Skip Yañez MD Transcribed by Gallito Danielson Authenticated by Skip Yañez MD on 11/27/2021 01:24:41 PM [facility]
[2021-11-27 11:45] LABS: Microscopic, Urine URINE MICROSCOPIC (MICROSCOPIC)
[2021-11-27 12:04] LABS: Appearance,Urine CLEAR (Clear); Bilirubin,Urine Negative (Negative); Blood, Urine Negative (Negative); Color,Urine YELLOW (Yellow); Glucose,Urine (UA) Negative (Negative); Ketones,Urine Negative (Negative); Leukocyte Esterase,Urine Negative (Negative); Nitrate,Urine Negative (Negative); PH,Urine 5.5 (5.0-8.5); Protein,Urine Negative (Negative); Specific Gravity, Urine <= 1.005 (1.005-1.030); Urobilinogen,Urine 0.2 EU/dl (0.2)
[2021-11-27 12:09] LABS: Basophils # 0.1 K/mm3 (0-0.2); Basophils % 2.4 % (0.1-2.0); Eosinophils # 0.1 K/mm3 (0.0-0.4); Eosinophils % 2.1 % (0.1-12.0); Hematocrit 41.4 % (37.0-47.0); Hemoglobin 13.1 g/dL (12.2-16.2); Lymphocytes # 1.6 K/mm3 (0.7-4.5); Lymphocytes % 34.5 % (10-50); Mean Corpuscular HGB Conc 31.5 g/dL (31.8-35.4); Mean Corpuscular Volume 101.4 fl (81-99); Mean Platelet Volume 7.2 fl (7.4-10.4); Monocytes # 0.3 K/mm3 (0.1-1.0); Monocytes % 6.1 % (1.7-9.3); Neutrophils # 2.6 K/mm3 (1.8-7.8); Neutrophils % 54.8 % (37.0-80.0); Platelet Count 312 K/mm3 (142-424); Red Blood Count 4.08 M/mm3 (4.20-5.40); Red Cell Distribution Width 13.6 % (11.5-17.5); White Blood Count 4.7 K/mm3 (4.8-10.8)
[2021-11-27 12:22] LABS: Bacteria,Urine Trace /lpf; Squamous Epithelial Cell,Urine Occasional #/hpf (0-5)
[2021-11-27 12:35] LABS: Chloride 99 mmol/L (98-107)
[2021-11-27 12:36] LABS: Potassium 4.3 mmoL/L (3.5-5.1); Sodium 135 mmol/L (136-145)
[2021-11-27 12:45] LABS: Activated Partial Thrombo Time 25.6 seconds (22.8-30.6); INR 0.91 (0.9-1.1); Prothrombin Time 10.4 seconds (10.1-12.5)
[2021-11-27 12:46] LABS: Anion Gap 15.3 mEq/L (5-15); Blood Urea Nitrogen 5 mg/dl (7-17); Calcium 10.1 mg/dl (8.4-10.2); Carbon Dioxide 25 mmol/L (22.0-30.0); Estimated Glomerular Filt Rate 131 ml/min (>60); GFR (African American) 158 ML/MIN (>60); Glucose 111 mg/dl (74-100)
== END ==
PROVIDERS: PCP Emergency Medicine; Visit Provider Clinical Nurse Specialist Family Health
DX: Z01.818 Encounter for other preprocedural examination (principal); Z11.52 Encounter for screening for COVID-19
CPT/HCPCS: 36415; 72125; 80048; 81001; 85025; 85610; 85730; 93005; C9803; U0003; U0005

== ENCOUNTER → 2022-01-04 16:58 | Outpatient (CLI) | payer MEDICAID, SELFPAY ==
[2022-01-04 14:35] LABS: Amphetamine/Metha Screen,Urine Negative ng/ml (<1000)
[2022-01-04 14:36] LABS: Barbiturates Screen,Urine Negative ng/ml (<200)
[2022-01-04 14:37] LABS: Benzodiazepines Screen,Urine Negative ng/ml (<200)
[2022-01-04 14:38] LABS: Cannabinoid Screen,Urine Negative ng/ml (<50); Cocaine Screen,Urine Negative ng/ml (<300)
[2022-01-04 14:39] LABS: Methadone Screen,Urine Negative ng/ml (<300)
[2022-01-04 14:41] LABS: Opiate Screen,Urine Positive ng/ml (<300); Phencyclidine Screen,Urine Negative ng/ml (<25)
== END ==
PROVIDERS: Visit Provider Emergency Medicine
DX: Z98.890 Other specified postprocedural states (principal)
CPT/HCPCS: 80305

== ENCOUNTER → 2022-03-12 13:15 | Outpatient (CLI) | payer MEDICAID, SELFPAY ==
[2022-03-12 20:29] LABS: Amphetamine/Metha Screen,Urine Negative ng/ml (<1000); Barbiturates Screen,Urine Negative ng/ml (<200)
[2022-03-12 20:31] LABS: Benzodiazepines Screen,Urine Negative ng/ml (<200)
[2022-03-12 20:32] LABS: Cannabinoid Screen,Urine Negative ng/ml (<50); Cocaine Screen,Urine Negative ng/ml (<300)
[2022-03-12 20:33] LABS: Methadone Screen,Urine Negative ng/ml (<300)
[2022-03-12 20:34] LABS: Opiate Screen,Urine Positive ng/ml (<300); Phencyclidine Screen,Urine Negative ng/ml (<25)
== END ==
PROVIDERS: PCP Emergency Medicine; Visit Provider Emergency Medicine
DX: M54.2 Cervicalgia (principal)
CPT/HCPCS: 80305

== ENCOUNTER 2022-05-09 17:43 | Emergency (ER) | payer MEDICAID, SELFPAY ==
[2022-05-09 17:44] VITALS: BP 112/66; PULSE 93; RESP 18; TEMP 37.3; O2SAT 97; BMI 26.6
--- NOTE | 2022-05-09 18:04 | XR_ITS ---
PROCEDURE INFORMATION: Exam: XR Right Humerus Exam date and time: 05/09/2022 7:00 PM Age: 51 years old Clinical indication: Injury or trauma; Fall; Blunt trauma (contusions or hematomas); Arm, upper; Right; Additional info: Fall, pain TECHNIQUE: Imaging protocol: Radiologic exam of the Right humerus. Views: 2 or more views. COMPARISON: CR XR SHOULDER RT MIN 2V 10/05/2019 1:33 PM FINDINGS: Bones/joints: No acute fracture or malalignment. Soft tissues: Unremarkable. IMPRESSION: No acute osseous abnormality in the right humerus.
--- NOTE | 2022-05-09 18:04 | XR_ITS ---
PROCEDURE INFORMATION: Exam: XR Left Hip Exam date and time: 05/09/2022 7:05 PM Age: 51 years old Clinical indication: Injury or trauma; Fall; Blunt trauma (contusions or hematomas); Left; Hip; Additional info: Fall, pain TECHNIQUE: Imaging protocol: Radiologic exam of the Left hip. Views: 2 or 3 views hip with pelvis when performed. COMPARISON: CT ANGIO ABDOMEN PELVIS 05/09/2022 6:55 PM FINDINGS: Bones/joints: No acute fracture or malalignment. Pubic symphysis and bilateral sacroiliac joints are congruent. Soft tissues: Unremarkable. IMPRESSION: No evidence of acute osseous abnormality in the pelvis.
--- NOTE | 2022-05-09 18:04 | XR_ITS ---
PROCEDURE INFORMATION: Exam: XR Right Forearm Exam date and time: 05/09/2022 7:32 PM Age: 51 years old Clinical indication: Injury or trauma; Fall; Blunt trauma (contusions or hematomas); Arm, lower; Right; Additional info: Fall, pain TECHNIQUE: Imaging protocol: Radiologic exam of the Right forearm. Views: 2 views. COMPARISON: CR XR FOREARM RT 2V 06/27/2019 3:11 PM FINDINGS: Bones/joints: No acute fracture or malalignment. Soft tissues: Unremarkable. IMPRESSION: No acute osseous abnormality in the right forearm.
--- NOTE | 2022-05-09 18:04 | XR_ITS ---
PROCEDURE INFORMATION: Exam: XR Chest Exam date and time: 05/09/2022 6:58 PM Age: 51 years old Clinical indication: Injury or trauma; Fall; Blunt trauma (contusions or hematomas); Additional info: Fall, C/O back pain TECHNIQUE: Imaging protocol: Radiologic exam of the chest. Views: 1 view. COMPARISON: CT CHEST WO CON 05/09/2022 6:55 PM FINDINGS: Lungs: No acute airspace consolidation. No appreciable pulmonary edema. Pleural spaces: No pleural effusion. No pneumothorax. Heart/Mediastinum: Cardiomediastinal silouhette is within normal limits. Bones/joints: No evidence of acute osseous abnormality. IMPRESSION: No acute findings.
--- NOTE | 2022-05-09 18:04 | XR_ITS ---
PROCEDURE INFORMATION: Exam: XR Left Femur Exam date and time: 05/09/2022 7:07 PM Age: 51 years old Clinical indication: Injury or trauma; Fall; Blunt trauma; Thigh or upper leg; Left; Additional info: Fall, pain TECHNIQUE: Imaging protocol: Radiologic exam of the Left femur. Views: 2 views. COMPARISON: MR FEMUR LT WO CON 04/02/2020 1:53 PM FINDINGS: Bones/joints: No acute fracture or malalignment. Soft tissues: Unremarkable. IMPRESSION: No acute osseous abnormality in the left femur.
--- NOTE | 2022-05-09 18:06 | CT_ITS ---
PROCEDURE INFORMATION: Exam: CT Chest Without Contrast; Diagnostic Exam date and time: 05/09/2022 6:55 PM Age: 51 years old Clinical indication: Injury or trauma; Fall; Blunt trauma (contusions or hematomas); Additional info: Fall, C/O back pain TECHNIQUE: Imaging protocol: Diagnostic computed tomography of the chest without contrast. Radiation optimization: All CT scans at this facility use at least one of these dose optimization techniques: automated exposure control; mA and/or kV adjustment per patient size (includes targeted exams where dose is matched to clinical indication); or iterative reconstruction. COMPARISON: CT CHEST WO CON 11/20/2021 1:30 PM FINDINGS: Lungs: No acute airspace consolidation. No appreciable pulmonary edema. Pleural spaces: No pleural effusion. No pneumothorax. Heart: No cardiomegaly. No significant pericardial effusion. No significant coronary artery calcifications. Lymph nodes: Calcified lymph nodes, compatible with chronic sequelae of prior granulomatous disease. No pathologically enlarged lymph nodes by CT criteria. Vasculature: Aorta is normal in caliber. Bones/joints: No acute osseous abnormality. Soft tissues: Unremarkable. IMPRESSION: No acute findings in the chest.
--- NOTE | 2022-05-09 18:06 | CT_ITS ---
PROCEDURE INFORMATION: Exam: CT Head Without Contrast Exam date and time: 05/09/2022 6:48 PM Age: 51 years old Clinical indication: Injury or trauma; Fall; Blunt trauma (contusions or hematomas); Without loss of consciousness; Additional info: Fell out of bath tub TECHNIQUE: Imaging protocol: Computed tomography of the head without contrast. Radiation optimization: All CT scans at this facility use at least one of these dose optimization techniques: automated exposure control; mA and/or kV adjustment per patient size (includes targeted exams where dose is matched to clinical indication); or iterative reconstruction. COMPARISON: MR HEAD/BRAIN WO CON 11/17/2021 4:11 PM FINDINGS: Brain: Normal. No hemorrhage. Unremarkable white matter. No mass effect. Cerebral ventricles: No ventriculomegaly. Paranasal sinuses: Visualized sinuses are unremarkable. No fluid levels. Mastoid air cells: Visualized mastoid air cells are well aerated. Bones/joints: Unremarkable. No acute fracture. Soft tissues: Unremarkable. IMPRESSION: No acute intracranial abnormality.
--- NOTE | 2022-05-09 18:06 | CT_ITS ---
PROCEDURE INFORMATION: Exam: CT Abdomen And Pelvis Without Contrast Exam date and time: 05/09/2022 6:55 PM Age: 51 years old Clinical indication: Injury or trauma; Fall; Blunt; Generalized; Additional info: Fall, C/O back pain TECHNIQUE: Imaging protocol: Computed tomography of the abdomen and pelvis without contrast. Radiation optimization: All CT scans at this facility use at least one of these dose optimization techniques: automated exposure control; mA and/or kV adjustment per patient size (includes targeted exams where dose is matched to clinical indication); or iterative reconstruction. COMPARISON: CT BONY PELVIS 10/09/2021 2:29 PM FINDINGS: Liver: Fatty liver. Gallbladder and bile ducts: Status post cholecystectomy. Pancreas: Unremarkable. Spleen: Scattered punctate calcifications in the spleen, compatible with sequelae of prior granulomatous disease. Adrenal glands: Unremarkable. Kidneys and ureters: Unremarkable. Stomach and bowel: Unremarkable. Appendix: Appendix is visualized and is normal. Intraperitoneal space: No free fluid. No pneumoperitoneum. Vasculature: Unremarkable. Lymph nodes: Unremarkable. Urinary bladder: Unremarkable. Reproductive: Status post hysterectomy. Bones/joints: No acute osseous abnormality. Soft tissues: Unremarkable. IMPRESSION: 1. No acute findings in the abdomen or pelvis. 2. Fatty liver. 3. Concurrent chest CT reported separately.
--- NOTE | 2022-05-09 18:06 | CT_ITS ---
PROCEDURE INFORMATION: Exam: CT Thoracic Spine Without Contrast Exam date and time: 05/09/2022 6:50 PM Age: 51 years old Clinical indication: Injury or trauma; Fall; Blunt trauma (contusions or hematomas); Additional info: Fall, C/O back pain TECHNIQUE: Imaging protocol: Computed tomography of the thoracic spine without contrast. Radiation optimization: All CT scans at this facility use at least one of these dose optimization techniques: automated exposure control; mA and/or kV adjustment per patient size (includes targeted exams where dose is matched to clinical indication); or iterative reconstruction. COMPARISON: CT THORACIC SPINE WO CON 08/16/2021 6:53 PM FINDINGS: Bones/joints: No acute fracture or malalignment. Soft tissues: Unremarkable. IMPRESSION: No evidence of acute osseous abnormality in the thoracic spine.
--- NOTE | 2022-05-09 18:06 | CT_ITS ---
PROCEDURE INFORMATION: Exam: CT Lumbar Spine Without Contrast Exam date and time: 05/09/2022 6:53 PM Age: 51 years old Clinical indication: Injury or trauma; Fall; Blunt trauma (contusions or hematomas); Additional info: Fall, C/O back pain TECHNIQUE: Imaging protocol: Computed tomography of the lumbar spine without contrast. Radiation optimization: All CT scans at this facility use at least one of these dose optimization techniques: automated exposure control; mA and/or kV adjustment per patient size (includes targeted exams where dose is matched to clinical indication); or iterative reconstruction. COMPARISON: CT LUMBAR SPINE WO CON 10/09/2021 2:32 PM FINDINGS: Bones/joints: Standard lumbosacral anatomy with 5 [id number] lumbar type vertebral bodies. No evidence of acute fracture or malalignment. Limbus vertebra incidentally noted at the anterior superior endplate of L4. Grade 1 anterolisthesis of L3 on L4, unchanged from prior exam. Multilevel degenerative changes resulting in varying degrees of mild to moderate spinal canal stenosis and neuroforaminal narrowing from L3-S1, not significantly changed. Soft tissues: Unremarkable. IMPRESSION: 1. No evidence of acute osseous abnormality in the lumbar spine. 2. Grade 1 anterolisthesis of L3 on L4, unchanged from prior exam. 3. Multi-level degenerative changes.
--- NOTE | 2022-05-09 18:06 | CT_ITS ---
PROCEDURE INFORMATION: Exam: CT Cervical Spine Without Contrast Exam date and time: 05/09/2022 6:48 PM Age: 51 years old Clinical indication: Injury or trauma; Fall; Blunt trauma; Additional info: Fall, C/O back pain TECHNIQUE: Imaging protocol: Computed tomography of the cervical spine without contrast. Radiation optimization: All CT scans at this facility use at least one of these dose optimization techniques: automated exposure control; mA and/or kV adjustment per patient size (includes targeted exams where dose is matched to clinical indication); or iterative reconstruction. COMPARISON: CT CERVICAL SPINE WO CON 11/27/2021 11:33 AM FINDINGS: Bones/joints: ACDF at C6-C7. Degenerative disc disease at C5-C6 with disc osteophyte complexes and disc height narrowing resulting in neuroforaminal and central canal narrowing. No acute fracture or malalignment. Lungs: Lung apices are normal. Soft tissues: Unremarkable. IMPRESSION: Chronic and postsurgical changes but no acute findings in the cervical spine
--- NOTE | 2022-05-09 18:33 | HMH.EDGENADL ---
Discharge Plan Disposition Patient Disposition: Home, Self-Care Condition: Good Prescriptions Prescriptions: No Action gabapentin 800 mg tablet 800 mg PO TID Qty: 90 1RF hydrocodone-acetaminophen 10-325 mg tablet 1 tab PO QID PRN (Reason: pain) Qty: 120 0RF hydrocortisone-aloe vera 1 % cream See Rx Instructions .Route .COMPLEX Qty: 28 0RF Rx Instructions: APPLY TO AFFECTED AREA 2 TIMES A DAY loratadine 10 mg tablet See Rx Instructions .ROUTE .COMPLEX Qty: 30 0RF Dose Instruction: TAKE ONE TABLET BY MOUTH ONCE A DAY Rx Instructions: TAKE ONE TABLET BY MOUTH ONCE A DAY ketotifen fumarate 0.025 % (0.035 %) drops See Rx Instructions .ROUTE .COMPLEX Qty: 5 3RF Dose Instruction: PLACE 1 DROP IN EACH EYE 2 TIMES A DAY Rx Instructions: PLACE 1 DROP IN EACH EYE 2 TIMES A DAY levothyroxine 25 mcg tablet See Rx Instructions .ROUTE .COMPLEX Qty: 30 3RF Dose Instruction: TAKE ONE TABLET BY MOUTH ONCE A DAY FOR THYROID Rx Instructions: TAKE ONE TABLET BY MOUTH ONCE A DAY FOR THYROID promethazine 25 mg tablet See Rx Instructions .ROUTE .COMPLEX Qty: 30 0RF Dose Instruction: TAKE ONE TABLET BY MOUTH EVERY 8 HOURS NEEDED FOR NAUSEA/VOMITING Rx Instructions: TAKE ONE TABLET BY MOUTH EVERY 8 HOURS NEEDED FOR NAUSEA/VOMITING tramadol 50 mg tablet 50 mg PO BID PRN (Reason: breakthrough pain) Qty: 60 0RF benzonatate 100 mg capsule See Rx Instructions .ROUTE .COMPLEX Qty: 30 0RF Dose Instruction: TAKE ONE CAPSULE BY MOUTH 3 TIMES A DAY NEEDED FOR COUGH Rx Instructions: TAKE ONE CAPSULE BY MOUTH 3 TIMES A DAY NEEDED FOR COUGH omeprazole 40 mg capsule,delayed release(DR/EC) See Rx Instructions .ROUTE .COMPLEX Qty: 30 2RF Dose Instruction: TAKE ONE CAPSULE BY MOUTH ONCE A DAY FOR GERD Rx Instructions: TAKE ONE CAPSULE BY MOUTH ONCE A DAY FOR GERD clonazepam 0.5 mg tablet 0.5 mg PO TID Qty: 90 0RF Lubricant Eye Drops 0.5 % drops 2 drp OPHTHALMIC BID PRN (Reason: dry eye(s)) Qty: 15 0RF loperamide [Imodium A-D] 2 mg capsule 2 mg PO Q6H PRN (Reason: loose stool) Qty: 30 0RF fluticasone propionate 50 mcg/actuation spray,suspension See Rx Instructions .ROUTE .COMPLEX Qty: 16 3RF Dose Instruction: USE 1 SPRAY IN EACH NOSTRIL 2 TIMES A DAY FOR ALLERGIES Rx Instructions: USE 1 SPRAY IN EACH NOSTRIL 2 TIMES A DAY FOR ALLERGIES Referrals Follow up/Referrals: Perry Hicks MD [Primary Care Provider] - See instructions Activity Restrictions/Add. Instructions Additional Instructions/Restrictions: You were evaluated in the emergency department today after a fall. Please take your medications at home as needed for pain. Follow-up with your primary care provider over the next 48 hours. Return to the emergency department for any new or worsening symptoms. Clinical Impressions Clinical Impression: Fall from ground level Instructions Patient Instructions: How to Prevent Falls Discharge ED Provider: Sarah Mason General Adult HPI General Chief complaint: Fall Stated complaint: [id number] Fall RT leg and RT side rib pain Time Seen by Provider: 05/09/22 17:48 Mode of Arrival: Ambulatory Source of Information: Patient Limitations: No Limitations Description of Symptoms (Recalled from ER Triage Doc. by RN): c/o right rib pain and lower left leg pain after falling getting out of the bath tub History of Present Illness HPI narrative: This patient is a 51-year-old female with a history of fibromyalgia, chronic neck pain status post recent surgery in November, and anxiety presented to the emergency department for evaluation of neck pain, right upper extremity pain, right-sided pain, and left hip pain after a fall that happened yesterday. Patient reports that she was trying to get out of the bathtub when she slipped, falling and striking her right side on the bathtub. She
--- NOTE | 2022-05-09 18:41 | PC.NURSE ---
pt to [facility] per wheelchair
[2022-05-09 19:53] LABS: Basophils # 0.1 K/mm3 (0-0.2); Basophils % 1.2 % (0.1-2.0); Eosinophils # 0.1 K/mm3 (0.0-0.4); Eosinophils % 1.2 % (0.1-12.0); Hematocrit 41.7 % (37.0-47.0); Hemoglobin 13.4 g/dL (12.2-16.2); Lymphocytes % 37.8 % (10-50); Mean Corpuscular HGB Conc 32.2 g/dL (31.8-35.4); Mean Corpuscular Hemoglobin 32.6 pg (27.0-31.2); Mean Corpuscular Volume 101.2 fl (81-99); Mean Platelet Volume 7.5 fl (7.4-10.4); Monocytes # 0.2 K/mm3 (0.1-1.0); Monocytes % 4.2 % (1.7-9.3); Neutrophils % 55.6 % (37.0-80.0); Platelet Count 354 K/mm3 (142-424); Red Blood Count 4.12 M/mm3 (4.20-5.40); Red Cell Distribution Width 13.6 % (11.5-17.5); White Blood Count 5.4 K/mm3 (4.8-10.8)
[2022-05-09 19:56] LABS: Chloride 94 mmol/L (98-107)
[2022-05-09 19:57] LABS: Potassium 3.8 mmoL/L (3.5-5.1); Sodium 137 mmol/L (136-145)
[2022-05-09 19:59] LABS: Alanine Aminotransferase 35 U/L (12-78); Aspartate Amino Transferase 117 U/L (14-36); Blood Urea Nitrogen 6 mg/dl (7-17); Creatinine Clearance Estimated 173 mL/min (50-200); Estimated Glomerular Filt Rate 131 ml/min (>60); GFR (African American) 158 ML/MIN (>60)
[2022-05-09 20:00] LABS: Albumin Level 5.1 g/dl (3.5-5.0); Albumin/Globulin Ratio 1.5 (1.1-1.8); Alkaline Phosphatase 163 U/L (38-126); Anion Gap 19.8 mEq/L (5-15); Bilirubin,Total 0.3 mg/dl (0.2-1.3); Calcium 9.4 mg/dl (8.4-10.2); Carbon Dioxide 27 mmol/L (22.0-30.0); Globulin 3.5 g/dL (1.3-3.2); Glucose 88 mg/dl (74-100); Total Protein,Serum 8.6 g/dl (6.3-8.2)
[2022-05-09 20:45] VITALS: BP 155/91; PULSE 93; RESP 16; TEMP 36.6; O2SAT 100
== END 2022-05-09 20:45 | disposition home or self-care (01) ==
PROVIDERS: Emergency Provider Emergency Medicine; PCP Emergency Medicine
DX: R07.81 Pleurodynia (principal); M79.605 Pain in left leg; M25.552 Pain in left hip; M54.2 Cervicalgia; R07.89 Other chest pain; R94.31 Abnormal electrocardiogram [ECG] [EKG]; R05.9 Cough, unspecified; R19.7 Diarrhea, unspecified; K21.9 Gastro-esophageal reflux disease without esophagitis; G89.29 Other chronic pain; R40.0 Somnolence; Z79.1 Long term (current) use of non-steroidal anti-inflammatories (NSAID); H04.129 Dry eye syndrome of unspecified lacrimal gland; Z79.51 Long term (current) use of inhaled steroids; Z79.899 Other long term (current) drug therapy; Z88.0 Allergy status to penicillin; Z88.1 Allergy status to other antibiotic agents; Z88.3 Allergy status to other anti-infective agents; Z88.5 Allergy status to narcotic agent; W18.2XXA Fall in (into) shower or empty bathtub, initial encounter; Y92.002 Bathroom of unspecified non-institutional (private) residence as the place of occurrence of the external cause
CPT/HCPCS: 70450; 71045; 71250; 72125; 72128; 72131; 73060; 73090; 73502; 73552; 74176; 80053; 85025; 99285

== ENCOUNTER → 2022-05-11 16:16 | Outpatient (CLI) | payer MEDICAID, SELFPAY ==
[2022-05-11 21:30] LABS: Amphetamine/Metha Screen,Urine Negative ng/ml (<1000)
[2022-05-11 21:31] LABS: Barbiturates Screen,Urine Negative ng/ml (<200)
[2022-05-11 21:32] LABS: Benzodiazepines Screen,Urine Negative ng/ml (<200); Cannabinoid Screen,Urine Negative ng/ml (<50)
[2022-05-11 21:33] LABS: Cocaine Screen,Urine Negative ng/ml (<300)
[2022-05-11 21:34] LABS: Methadone Screen,Urine Negative ng/ml (<300); Opiate Screen,Urine Positive ng/ml (<300)
[2022-05-11 21:35] LABS: Phencyclidine Screen,Urine Negative ng/ml (<25)
== END ==
PROVIDERS: PCP Emergency Medicine; Visit Provider Emergency Medicine
DX: Z79.899 Other long term (current) drug therapy (principal)
CPT/HCPCS: 80305

== ENCOUNTER 2022-06-25 07:25 | Day surgery (SDC) | payer MEDICAID, SELFPAY ==
[2022-06-25 07:42] VITALS: BP 159/91; PULSE 98; RESP 20; TEMP 36.1; O2SAT 98; BMI 18.7
--- NOTE | 2022-06-25 07:59 | P.PN_ITS ---
[facility] Disclaimer: The information contained in this section may have been updated after the patient was seen, as this information can be updated by other users. Medical History Abnormal electrocardiography Chest tightness Daytime somnolence Dyspnea Encounter for pre-operative cardiovascular clearance Surgical History History of cholecystectomy History of hysterectomy Hx of neck surgery Family History Other Family history of asthma Family history of bronchitis Family history of cancer Family history of diabetes mellitus type II Family history of myocardial infarction Family history of stroke Social History Smoking Status: Never smoker second hand exposure: No alcohol intake: current substance use type: denies use current occupational status: disabled Travel in the last 8 weeks: None household members: none housing: house lives independently: Yes marital status: single number of children: 3 education level: high school current occupational exposures/hazards: No caffeine: No special christopher needs: No agree to transfusion: No do you feel safe at home: Yes victim of physical abuse: No victim of emotional abuse: No victim of sexual abuse: No would you like helpful sources: No [facility] Anesthesia Checklist Patient Identification Patient Identification: Arm Band Structural Data Admitted From: Home Planned Operative Procedure/s: colonoscopy Consent for Planned Operative Procedure(s) Verified: Yes Verified Documents: Surgical Consent and History and Physical NPO Status Verified Time NPO: 00:00 Additional verifications Anesthesia Reactions: Yes (states flat lined in the past ) Hx Blood Transfusions: No Blood Transfusion Reaction: No Airway Assessment C-Spine Mobility Assessed: Yes TMJ Mobility Assessed: Yes Dentition: Good Dentition Neurological Assessment Level of Consciousness: Awake and Alert Anesthesia Plan Anesthesia Risk discussed: Yes Anesthesia Plan: Verified ASA Class: II Anesthesia Type: MAC
[2022-06-25 08:01] VITALS: O2SAT 98
--- NOTE | 2022-06-25 08:26 | P.PCN_ITS ---
Procedure: Date: 06/25/22 Patient Date of :: 1970 Procedure Performed:: Total colonoscopy to terminal ileum Indications:: Patient is a 51-year-old female with history of colon cancer in her mother and maternal aunt. I had previously performed colonoscopy and she had a 10 mm sessile serrated adenoma. Plan was for follow-up colonoscopy. Performing Provider:: Oswaldo Carrasquillo MD Referring Provider:: Brandon Hicks Sedation:: MAC sedation Procedure:: Patient history was obtained and appropriate physical examination was performed. Patient's medications and allergies were reviewed. Informed consent was ob tained after explaining the benefits, alternatives, and risks of the procedure including, but not limited to, bleeding, perforation, missed lesions, and adverse reaction to anesthesia medications. Patient was transported to endoscopy procedure room. Patient was connected to monitoring devices. Throughout the procedure the patient's blood pressure, pulse, and oxygen saturations were monitored continuously. Patient identification and planned procedure were verified by the staff. Patient was positioned in lateral decubitus position. Digital anorectal exam was performed. Variable stiffness Olympus colonoscope was inserted and advanced under direct visualization to the cecum. Adequacy of the colonic preparation was noted. The colonoscope was advanced a short distance into the terminal ileum. The colonoscope was then slowly withdrawn while carefully examining the color, texture, anatomy, and integrity of the mucosoa circumferentially. Within the rectum retroflexion was performed. Colonoscope was then withdrawn. IMPRESSION: Upon insertion of the colonoscope liquid and some formed stool was encountered. Thorough irrigation and suctioning was performed and the colonoscope ultimately was advanced to the cecum. However, prep was extremely poor and colonic visualization was incredibly poor despite attempts at thorough irrigation and suctioning. The colonoscope was able to be advanced into the terminal ileum which appeared essentially unremarkable. With thorough irrigation and suctioning colonoscope was withdrawn through the colon but as stated above, visualization was extremely poor. There were no obvious obstructing masses. Findings:: Incredibly poor preparation in visualization Recommendations:: Repeat colonoscopy with aggressive bowel regimen and multi day prep Complications:: Not immediately apparent Estimated blood obtained (mL): 0
[2022-06-25 08:30] VITALS: BP 100/71; PULSE 88; RESP 17; TEMP 36.6; O2SAT 95
[2022-06-25 08:40] VITALS: BP 115/76; PULSE 88; RESP 14; TEMP 36.6; O2SAT 95
[2022-06-25 08:50] VITALS: BP 119/80; PULSE 87; RESP 16; O2SAT 99
[2022-06-25 09:00] VITALS: BP 130/78; PULSE 89; RESP 17; O2SAT 99
== END 2022-06-25 09:15 | disposition home or self-care (01) ==
PROVIDERS: PCP Emergency Medicine; Visit Provider Surgery
PROC: 0DJD8ZZ Inspection of Lower Intestinal Tract, Via Natural or Artificial Opening Endoscopic (ICD-10-PCS; CPT 45378; principal; 2022-06-25 07:30)
DX: Z12.11 Encounter for screening for malignant neoplasm of colon (principal); Z86.010 Personal history of colon polyps; Z80.0 Family history of malignant neoplasm of digestive organs; Z79.899 Other long term (current) drug therapy
CPT/HCPCS: 45378

== ENCOUNTER → 2022-07-07 14:20 | Outpatient (CLI) | payer MEDICAID, SELFPAY ==
[2022-07-07 17:53] LABS: Amphetamine/Metha Screen,Urine Negative ng/ml (<1000)
[2022-07-07 17:54] LABS: Barbiturates Screen,Urine Negative ng/ml (<200)
[2022-07-07 17:55] LABS: Benzodiazepines Screen,Urine Negative ng/ml (<200); Cannabinoid Screen,Urine Negative ng/ml (<50)
[2022-07-07 17:56] LABS: Cocaine Screen,Urine Negative ng/ml (<300)
[2022-07-07 17:57] LABS: Methadone Screen,Urine Negative ng/ml (<300); Opiate Screen,Urine Positive ng/ml (<300)
[2022-07-07 17:59] LABS: Phencyclidine Screen,Urine Negative ng/ml (<25)
== END ==
PROVIDERS: PCP Emergency Medicine; Visit Provider Emergency Medicine
DX: M51.36 Other intervertebral disc degeneration, lumbar region (principal)
CPT/HCPCS: 80305

== ENCOUNTER → 2022-08-02 10:23 | Outpatient (CLI) | payer MEDICAID, SELFPAY ==
[2022-08-03 10:11] LABS: Amphetamine/Metha Screen,Urine Negative ng/ml (<1000); Barbiturates Screen,Urine Negative ng/ml (<200)
[2022-08-03 10:13] LABS: Benzodiazepines Screen,Urine Negative ng/ml (<200)
[2022-08-03 10:14] LABS: Cannabinoid Screen,Urine Negative ng/ml (<50)
[2022-08-03 10:15] LABS: Cocaine Screen,Urine Negative ng/ml (<300); Methadone Screen,Urine Negative ng/ml (<300)
[2022-08-03 10:16] LABS: Opiate Screen,Urine Positive ng/ml (<300); Phencyclidine Screen,Urine Negative ng/ml (<25)
== END ==
PROVIDERS: PCP Emergency Medicine; Visit Provider Emergency Medicine
DX: M51.16 Intervertebral disc disorders with radiculopathy, lumbar region (principal)
CPT/HCPCS: 80305

== ENCOUNTER → 2022-10-05 11:40 | Outpatient (CLI) | payer MEDICAID, SELFPAY ==
[2022-10-05 14:36] LABS: Phencyclidine Screen,Urine Negative ng/ml (<25)
[2022-10-05 14:47] LABS: Amphetamine/Metha Screen,Urine Negative ng/ml (<1000); Cannabinoid Screen,Urine Negative ng/ml (<50)
[2022-10-05 14:48] LABS: Barbiturates Screen,Urine Negative ng/ml (<200)
[2022-10-05 14:49] LABS: Cocaine Screen,Urine Negative ng/ml (<300)
[2022-10-05 14:50] LABS: Methadone Screen,Urine Negative ng/ml (<300); Opiate Screen,Urine Positive ng/ml (<300)
[2022-10-05 14:57] LABS: Benzodiazepines Screen,Urine Negative ng/ml (<200)
== END ==
PROVIDERS: PCP Emergency Medicine; Visit Provider Emergency Medicine
DX: Z79.899 Other long term (current) drug therapy (principal)
CPT/HCPCS: 80305

== ENCOUNTER 2022-11-05 15:24 | Emergency (ER) | payer MEDICAID, SELFPAY ==
[2022-11-05 15:38] VITALS: BP 162/97; PULSE 113; RESP 16; TEMP 36.6; O2SAT 97; BMI 23.8
--- NOTE | 2022-11-05 15:51 | CT_ITS ---
FINAL REPORT TECHNIQUE: Axial images through the abdomen and pelvis were performed without contrast. This study was performed with techniques to keep radiation doses as low as reasonably achievable, (ALARA). Individualized dose reduction techniques using automated exposure control or adjustment of mA and/or kV according to the patient's size were employed. CLINICAL HISTORY: new cervical cancer, low abd and pelvic pain. COMPARISON: 03/22/2019 FINDINGS: ABDOMEN: The lung bases are clear. The heart size is normal. Limited images of the liver are unremarkable. The patient is status post cholecystectomy. The spleen is normal. No adrenal mass is identified. The aorta is normal in caliber. There is no significant free fluid or adenopathy. There is no nephrolithiasis. There is no hydronephrosis. PELVIS: The appendix is normal. There is bladder wall thickening, likely inflammatory. The patient is status post hysterectomy. There is a small sclerotic focus in the left iliac bone which is stable. There is no significant free fluid or adenopathy. IMPRESSION: Bladder wall thickening, likely inflammatory. Stable sclerotic focus in the left iliac bone. Reviewed, Interpreted and Dictated by Oswaldo Barrett III, MD Transcribed by Janice Alvarado Authenticated and [facility]
--- NOTE | 2022-11-05 15:54 | HMH.EDGENADL ---
Discharge Plan Disposition Patient Disposition: Home, Self-Care Condition: Fair Prescriptions Prescriptions: New oxycodone-acetaminophen 10-325 mg tablet 1 tab PO Q8H PRN (Reason: severe pain) Qty: 12 0RF Rx Instructions: Do not combine with other opiates. No Action olopatadine [Pataday Once Daily Relief] 0.2 % drops 1 drp ophthalmic (eye) DAILY Qty: 2.5 0RF omeprazole 40 mg capsule,delayed release(DR/EC) 40 mg PO DAILY Qty: 90 0RF Rx Instructions: TAKE ONE CAPSULE BY MOUTH ONCE A DAY FOR GERD promethazine 25 mg tablet 25 mg PO NEEDED PRN (Reason: Nausea) Qty: 30 1RF Rx Instructions: TAKE ONE TABLET BY MOUTH EVERY 8 HOURS NEEDED FOR NAUSEA/VOMITING loperamide [Imodium A-D] 2 mg capsule 2 mg PO Q6H PRN (Reason: loose stool) Qty: 30 0RF levothyroxine 25 mcg tablet 25 mcg PO DAILY Qty: 90 0RF Rx Instructions: TAKE ONE TABLET BY MOUTH ONCE A DAY FOR THYROID clonazepam 0.5 mg tablet 0.5 mg PO QID Qty: 120 1RF hydrocodone-acetaminophen 10-325 mg tablet 1 tab PO QID PRN (Reason: pain) Qty: 120 0RF gabapentin 800 mg tablet 800 mg PO DAILY Qty: 30 1RF benzonatate 100 mg capsule 100 mg PO TID PRN (Reason: cough) Qty: 30 0RF [id number]-[id number]-EO [Bromfed DM] 2-30-10 mg/5 mL syrup 5 ml PO Q6H PRN (Reason: allergy symptoms) Qty: 118 0RF loratadine 10 mg tablet 10 mg PO DAILY Qty: 30 0RF benzonatate 100 mg capsule 100 mg PO TID PRN (Reason: cough) Qty: 30 0RF ketotifen fumarate 0.025 % (0.035 %) drops See Rx Instructions .ROUTE .COMPLEX Qty: 5 0RF Dose Instruction: INSTILL 1 DROP IN AFFECTED EYE(S) 2 TIMES A DAY Rx Instructions: INSTILL 1 DROP IN AFFECTED EYE(S) 2 TIMES A DAY fluticasone propionate 50 mcg/actuation spray,suspension See Rx Instructions .ROUTE .COMPLEX Qty: 16 0RF Dose Instruction: USE 1 SPRAY IN EACH NOSTRIL 2 TIMES A DAY FOR ALLERGIES Rx Instructions: USE 1 SPRAY IN EACH NOSTRIL 2 TIMES A DAY FOR ALLERGIES Referrals Follow up/Referrals: Perry Hicks MD [Primary Care Provider] - See instructions Activity Restrictions/Add. Instructions Additional Instructions/Restrictions: At this time was felt you are safe to be discharged from the emergency department. If new or worsening symptoms please not hesitate to return for continued evaluation. Please follow-up with your family doctor next week as discussed for long-term management of your multiple medications. Please take your medications as prescribed and do not combine with other opiates Clinical Impressions Clinical Impression: Lower abdominal pain Instructions Patient Instructions: DI for Acute Abdominal Pain Discharge ED Provider: Robert Kelsey General Adult HPI General Chief complaint: Abdominal Pain Stated complaint: Cancer ,,Lac pain Time Seen by Provider: 11/05/22 15:30 Mode of Arrival: Ambulatory Source of Information: Patient Limitations: No Limitations Description of Symptoms (Recalled from ER Triage Doc. by RN): Presents via POV d/t abd swelling. Recent cervical biopies due to vaginal bleeding. Hx of IGNACIO due to ovarian ca 2018. History of Present Illness HPI narrative: Patient is a 51-year-old female with past medical history of ovarian cancer status post complete hysterectomy, recently diagnosed cervical cancer who presents emergency department for evaluation of low abdominal pain. Patient reportedly had biopsies earlier this week and was told that she had a low-grade cancer. Outpatient follow-up was scheduled for later this month. Patient noticed and pursued work-up when she had vaginal bleeding that caused her to get the biopsy and received this diagnosis. Patient has had progressive lower abdominal pain and swelling. Patient reportedly required shocking last time she received IV contrast. She has adequate p.o. intake and urine output. Due to severity of pain she presents here for con
[2022-11-05 16:03] LABS: Microscopic, Urine URINE MICROSCOPIC (MICROSCOPIC)
[2022-11-05 16:11] LABS: Appearance,Urine CLEAR (Clear); Bilirubin,Urine Negative (Negative); Blood, Urine Negative (Negative); Color,Urine YELLOW (Yellow); Glucose,Urine (UA) Negative (Negative); Ketones,Urine Negative (Negative); Leukocyte Esterase,Urine Negative (Negative); Nitrate,Urine Negative (Negative); Protein,Urine Negative (Negative); Specific Gravity, Urine <= 1.005 (1.005-1.030); Urobilinogen,Urine 0.2 EU/dl (0.2)
[2022-11-05 16:16] LABS: Basophils % 0.3 % (0.1-2.0); Chloride 99 mmol/L (98-107); Eosinophils % 0.6 % (0.1-12.0); Hematocrit 41.6 % (37.0-47.0); Hemoglobin 13.1 g/dL (12.2-16.2); Lymphocytes # 3.1 K/mm3 (0.7-4.5); Mean Corpuscular HGB Conc 31.5 g/dL (31.8-35.4); Mean Corpuscular Hemoglobin 31.7 pg (27.0-31.2); Mean Corpuscular Volume 100.4 fl (81-99); Mean Platelet Volume 7.2 fl (7.4-10.4); Monocytes # 0.4 K/mm3 (0.1-1.0); Monocytes % 4.8 % (1.7-9.3); Neutrophils # 3.7 K/mm3 (1.8-7.8); Neutrophils % 51.4 % (37.0-80.0); Platelet Count 313 K/mm3 (142-424); Potassium 4.2 mmoL/L (3.5-5.1); Red Blood Count 4.14 M/mm3 (4.20-5.40); Red Cell Distribution Width 13.4 % (11.5-17.5); Sodium 135 mmol/L (136-145); White Blood Count 7.3 K/mm3 (4.8-10.8)
[2022-11-05 16:19] LABS: Alanine Aminotransferase 34 U/L (12-78); Albumin/Globulin Ratio 1.4 (1.1-1.8); Alkaline Phosphatase 115 U/L (38-126); Anion Gap 20.2 mEq/L (5-15); Aspartate Amino Transferase 90 U/L (14-36); Bilirubin,Total 0.6 mg/dl (0.2-1.3); Blood Urea Nitrogen 5 mg/dl (7-17); Calcium 9.3 mg/dl (8.4-10.2); Carbon Dioxide 20 mmol/L (22.0-30.0); Creatinine Clearance Estimated 157 mL/min (50-200); Estimated Glomerular Filt Rate 169 ml/min (>60); GFR (African American) 204 ML/MIN (>60); Globulin 3.6 g/dL (1.3-3.2); Glucose 99 mg/dl (74-100); Total Protein,Serum 8.6 g/dl (6.3-8.2)
[2022-11-05 16:32] LABS: Bacteria,Urine 1+ /lpf
[2022-11-05 16:33] LABS: Lactic Acid 1.9 mmol/L (0.7-2.1)
[2022-11-05 17:02] VITALS: BP 141/89; PULSE 92; RESP 16; O2SAT 97
[2022-11-05 17:22] VITALS: BP 141/89; PULSE 92; RESP 16; TEMP 36.6; O2SAT 97
== END 2022-11-05 17:24 | disposition home or self-care (01) ==
PROVIDERS: Emergency Provider Emergency Medicine; PCP Emergency Medicine
DX: R10.30 Lower abdominal pain, unspecified (principal); C53.9 Malignant neoplasm of cervix uteri, unspecified
CPT/HCPCS: 74176; 80053; 81001; 83605; 85025; 96360; 99285

== ENCOUNTER → 2022-11-09 11:50 | Outpatient (CLI) | payer MEDICAID, SELFPAY ==
[2022-11-09 14:01] LABS: Amphetamine/Metha Screen,Urine Negative ng/ml (<1000)
[2022-11-09 14:02] LABS: Barbiturates Screen,Urine Negative ng/ml (<200); Benzodiazepines Screen,Urine Negative ng/ml (<200)
[2022-11-09 14:03] LABS: Cannabinoid Screen,Urine Negative ng/ml (<50)
[2022-11-09 14:05] LABS: Cocaine Screen,Urine Negative ng/ml (<300)
[2022-11-09 14:06] LABS: Methadone Screen,Urine Negative ng/ml (<300)
[2022-11-09 14:07] LABS: Opiate Screen,Urine Positive ng/ml (<300); Phencyclidine Screen,Urine Negative ng/ml (<25)
== END ==
PROVIDERS: PCP Emergency Medicine; Visit Provider Emergency Medicine
DX: Z79.899 Other long term (current) drug therapy (principal)
CPT/HCPCS: 80305

== ENCOUNTER 2022-11-19 16:34 | Emergency (ER) | payer MEDICAID, SELFPAY ==
[2022-11-19 16:44] VITALS: BP 157/89; PULSE 88; O2SAT 99
--- NOTE | 2022-11-19 16:47 | XR_ITS ---
PROCEDURE INFORMATION: Exam: XR Left Clavicle, Complete Exam date and time: 11/19/2022 4:51 PM Age: 52 years old Clinical indication: Pain; Other: Clavicle; Additional info: Fall TECHNIQUE: Imaging protocol: Radiologic exam of the left clavicle. Complete exam. Views: Any number of views. COMPARISON: CR XR CLAVICLE LT 08/21/2020 4:14 PM FINDINGS: Bones/joints: No acute fracture or dislocation. There are no lytic skeletal lesions seen. No significant arthritic changes at the left sternoclavicular joint or acromioclavicular joint. Surgical fusion hardware noted in the lower cervical spine. Lungs: Visualized left lung is unremarkable. Soft tissues: No acute findings in the soft tissues. Other findings: Overlying clothing artifacts. IMPRESSION: No acute fracture or dislocation.
--- NOTE | 2022-11-19 16:47 | XR_ITS ---
PROCEDURE INFORMATION: Exam: XR Left Shoulder Exam date and time: 11/19/2022 4:46 PM Age: 52 years old Clinical indication: Pain; Shoulder; Left; Additional info: Fall, pain TECHNIQUE: Imaging protocol: Radiologic exam of the left shoulder. Views: 2 or more views. COMPARISON: CR XR SHOULDER LT MIN 2V 06/27/2019 3:11 PM FINDINGS: Bones/joints: No acute fracture or dislocation. No significant arthritic deformities at the glenohumeral joint or acromioclavicular joint. There are no lytic skeletal lesions seen. Bones appear slightly demineralized. Cervical fusion hardware noted in the lower cervical spine. Soft tissues: No radiopaque foreign bodies. No pathologic soft tissue calcification. Other findings: Overlying clothing artifacts. IMPRESSION: No acute fracture or dislocation.
--- NOTE | 2022-11-19 16:47 | XR_ITS ---
PROCEDURE INFORMATION: Exam: XR Left Humerus Exam date and time: 11/19/2022 4:49 PM Age: 52 years old Clinical indication: Pain; Upper arm; Left; Additional info: Fall TECHNIQUE: Imaging protocol: Radiologic exam of the left humerus. Views: 2 or more views. COMPARISON: CR Shoulder L 11/19/2022 4:46 PM FINDINGS: Bones/joints: No acute humerus fracture or dislocation. There are no lytic skeletal lesions seen. No significant arthritic deformities. Bones appear slightly demineralized but this may be artifact of film technique rather than true osteopenia. Soft tissues: No radiopaque foreign bodies. No pathologic soft tissue calcification. Other findings: Overlying clothing artifacts. IMPRESSION: No acute fracture or dislocation.
[2022-11-19 16:49] VITALS: BP 157/89; PULSE 87; RESP 16; TEMP 36.8; O2SAT 99; BMI 19.4
--- NOTE | 2022-11-19 16:49 | HMH.EDGENADL ---
Discharge Plan Disposition Patient Disposition: Home, Self-Care Condition: Fair Chief Complaint: Extremity Injury, Upper Prescriptions Prescriptions: No Action olopatadine [Pataday Once Daily Relief] 0.2 % drops 1 drp ophthalmic (eye) DAILY Qty: 2.5 0RF omeprazole 40 mg capsule,delayed release(DR/EC) 40 mg PO DAILY Qty: 90 0RF Rx Instructions: TAKE ONE CAPSULE BY MOUTH ONCE A DAY FOR GERD promethazine 25 mg tablet 25 mg PO NEEDED PRN (Reason: Nausea) Qty: 30 1RF Rx Instructions: TAKE ONE TABLET BY MOUTH EVERY 8 HOURS NEEDED FOR NAUSEA/VOMITING loperamide [Imodium A-D] 2 mg capsule 2 mg PO Q6H PRN (Reason: loose stool) Qty: 30 0RF levothyroxine 25 mcg tablet 25 mcg PO DAILY Qty: 90 0RF Rx Instructions: TAKE ONE TABLET BY MOUTH ONCE A DAY FOR THYROID clonazepam 0.5 mg tablet 0.5 mg PO QID Qty: 120 1RF hydrocodone-acetaminophen 10-325 mg tablet 1 tab PO QID PRN (Reason: pain) Qty: 120 0RF gabapentin 800 mg tablet 800 mg PO DAILY Qty: 30 1RF ewamyjzwcbtkziq-fqyurrfdb-SX [Bromfed DM] 2-30-10 mg/5 mL syrup 5 ml PO Q6H PRN (Reason: allergy symptoms) Qty: 118 0RF loratadine 10 mg tablet 10 mg PO DAILY Qty: 30 0RF ketotifen fumarate 0.025 % (0.035 %) drops See Rx Instructions .ROUTE .COMPLEX Qty: 5 0RF Dose Instruction: INSTILL 1 DROP IN AFFECTED EYE(S) 2 TIMES A DAY Rx Instructions: INSTILL 1 DROP IN AFFECTED EYE(S) 2 TIMES A DAY tramadol 50 mg tablet 50 mg PO TID Qty: 12 0RF promethazine-DM 6.25-15 mg/5 mL syrup 5 ml PO Q6H PRN (Reason: cough) Qty: 118 0RF benzonatate 100 mg capsule 100 mg PO TID PRN (Reason: cough) Qty: 30 0RF fluticasone propionate 50 mcg/actuation spray,suspension See Rx Instructions .ROUTE .COMPLEX Qty: 16 0RF Dose Instruction: USE 1 SPRAY IN EACH NOSTRIL 2 TIMES A DAY FOR ALLERGIES Rx Instructions: USE 1 SPRAY IN EACH NOSTRIL 2 TIMES A DAY FOR ALLERGIES Referrals Follow up/Referrals: Perry Hicks MD [Primary Care Provider] - See instructions Rod Calle JR, MD [Physician] - See instructions Activity Restrictions/Add. Instructions Additional Instructions/Restrictions: At this time was felt you are safe to be discharged home. If new or worsening symptoms please not hesitate to return the emergency department. Please call and schedule an appointment with orthopedics above and wear your sling for comfort as needed. Clinical Impressions Clinical Impression: Acute shoulder pain due to trauma Discharge ED Provider: Robert Kelsey General Adult HPI General Chief complaint: Extremity Injury, Upper Stated complaint: AO04/26 LT shoulder injury Time Seen by Provider: 11/19/22 16:49 History of Present Illness HPI narrative: Patient is a 52-year-old female with multiple comorbidities, fibromyalgia, chronic neck pain who presents to the emergency department for evaluation of traumatic injury sustained in a fall. Patient yesterday was yanked into the air by her heavy trash can causing her to fall on her left shoulder with immediate moderate to severe pain and limited use. No LOC, no traumatic head pain. No other acute complaints at this time. Related Data Previous Rx's Medication Instructions Recorded clonazepam 0.5 mg tablet 0.5 mg PO QID Anxiety #120 tabs 10/05/22 gabapentin 800 mg tablet 800 mg PO DAILY #30 tabs 10/05/22 hydrocodone 10 mg-acetaminophen 1 tab PO QID PRN pain #120 tabs 10/05/22 325 mg tablet levothyroxine 25 mcg tablet 25 mcg PO DAILY thyroid #90 tabs 10/05/22 loperamide 2 mg capsule (Imodium 2 mg PO Q6H PRN loose stool #30 10/05/22 A-D) caps olopatadine 0.2 % eye drops 1 drp ophthalmic (eye) DAILY #2.5 10/05/22 (Pataday Once Daily Relief) mL omeprazole 40 mg capsule,delayed 40 mg PO DAILY relfux #90 caps 10/05/22 release promethazine 25 mg tablet 25 mg PO NEEDED PRN Nausea #30 10/05/22 tabs ketotifen fumarate 0.025 % (0.035 See
[2022-11-19 17:50] VITALS: BP 149/70; PULSE 82; RESP 18; TEMP 36.8; O2SAT 99
== END 2022-11-19 17:50 | disposition home or self-care (01) ==
PROVIDERS: Emergency Provider Emergency Medicine; PCP Emergency Medicine
DX: M25.512 Pain in left shoulder (principal); X50.0XXA Overexertion from strenuous movement or load, initial encounter; F17.290 Nicotine dependence, other tobacco product, uncomplicated
CPT/HCPCS: 73000; 73030; 73060; 99284

== ENCOUNTER → 2022-11-30 23:12 | Outpatient (CLI) | payer MEDICAID, SELFPAY ==
[2022-11-30 19:37] LABS: Amphetamine/Metha Screen,Urine Negative ng/ml (<1000); Barbiturates Screen,Urine Negative ng/ml (<200)
[2022-11-30 19:38] LABS: Benzodiazepines Screen,Urine Negative ng/ml (<200)
[2022-11-30 19:39] LABS: Cannabinoid Screen,Urine Negative ng/ml (<50)
[2022-11-30 19:40] LABS: Cocaine Screen,Urine Negative ng/ml (<300)
[2022-11-30 19:41] LABS: Methadone Screen,Urine Negative ng/ml (<300); Opiate Screen,Urine Positive ng/ml (<300)
[2022-11-30 19:42] LABS: Phencyclidine Screen,Urine Negative ng/ml (<25)
== END ==
PROVIDERS: PCP Emergency Medicine; Visit Provider Emergency Medicine
DX: M54.9 Dorsalgia, unspecified (principal)
CPT/HCPCS: 80305

== ENCOUNTER → 2022-12-31 13:44 | Outpatient (CLI) | payer MEDICAID, SELFPAY ==
[2022-12-31 13:59] LABS: Amphetamine/Metha Screen,Urine Negative ng/ml (<1000)
[2022-12-31 14:00] LABS: Barbiturates Screen,Urine Negative ng/ml (<200)
[2022-12-31 14:01] LABS: Benzodiazepines Screen,Urine Negative ng/ml (<200)
[2022-12-31 14:02] LABS: Cannabinoid Screen,Urine Negative ng/ml (<50)
[2022-12-31 14:03] LABS: Cocaine Screen,Urine Negative ng/ml (<300)
[2022-12-31 14:04] LABS: Methadone Screen,Urine Negative ng/ml (<300)
[2022-12-31 14:05] LABS: Opiate Screen,Urine Positive ng/ml (<300); Phencyclidine Screen,Urine Negative ng/ml (<25)
== END ==
PROVIDERS: PCP Emergency Medicine; Visit Provider Emergency Medicine
DX: M54.12 Radiculopathy, cervical region (principal)
CPT/HCPCS: 80305

== ENCOUNTER 2023-01-06 19:32 | Emergency (ER) | payer MEDICAID, SELFPAY ==
[2023-01-06 19:47] VITALS: BP 128/83; PULSE 100; RESP 17; TEMP 36.7; O2SAT 97; BMI 20.7
--- NOTE | 2023-01-06 19:56 | HMH.EDGENADL ---
Discharge Plan Disposition Patient Disposition: Home, Self-Care Prescriptions Prescriptions: No Action loperamide [Imodium A-D] 2 mg capsule 2 mg PO Q6H PRN (Reason: loose stool) Qty: 30 0RF fluticasone propionate 50 mcg/actuation spray,suspension See Rx Instructions .ROUTE .COMPLEX Qty: 16 0RF Dose Instruction: USE 1 SPRAY IN EACH NOSTRIL 2 TIMES A DAY FOR ALLERGIES Rx Instructions: USE 1 SPRAY IN EACH NOSTRIL 2 TIMES A DAY FOR ALLERGIES olopatadine [Pataday Once Daily Relief] 0.2 % drops 1 drp ophthalmic (eye) DAILY Qty: 2.5 0RF ketotifen fumarate 0.025 % (0.035 %) drops See Rx Instructions .ROUTE .COMPLEX Qty: 5 0RF Dose Instruction: INSTILL 1 DROP IN AFFECTED EYE(S) 2 TIMES A DAY Rx Instructions: INSTILL 1 DROP IN AFFECTED EYE(S) 2 TIMES A DAY clonazepam 0.5 mg tablet 0.5 mg PO QID Qty: 120 1RF gabapentin 800 mg tablet 800 mg PO TID Qty: 90 1RF hydrocodone-acetaminophen 10-325 mg tablet 1 tab PO QID PRN (Reason: pain) Qty: 120 0RF loratadine 10 mg tablet See Rx Instructions .ROUTE .COMPLEX Qty: 30 2RF Dose Instruction: TAKE ONE TABLET BY MOUTH ONCE A DAY Rx Instructions: TAKE ONE TABLET BY MOUTH ONCE A DAY promethazine 25 mg tablet 25 mg PO NEEDED PRN (Reason: Nausea) Qty: 30 1RF Rx Instructions: TAKE ONE TABLET BY MOUTH EVERY 8 HOURS NEEDED FOR NAUSEA/VOMITING levothyroxine 25 mcg tablet 25 mcg PO DAILY Qty: 90 0RF Rx Instructions: TAKE ONE TABLET BY MOUTH ONCE A DAY FOR THYROID omeprazole 40 mg capsule,delayed release(DR/EC) 40 mg PO DAILY Qty: 90 0RF Rx Instructions: TAKE ONE CAPSULE BY MOUTH ONCE A DAY FOR GERD hydrocortisone-aloe vera [Anti-Itch(hydrocortisone)-Aloe] 1 % cream 1 applic topical BID Qty: 28 1RF benzonatate 100 mg capsule See Rx Instructions .ROUTE .COMPLEX Qty: 30 0RF Dose Instruction: TAKE ONE CAPSULE BY MOUTH 3 TIMES A DAY NEEDED FOR COUGH Rx Instructions: TAKE ONE CAPSULE BY MOUTH 3 TIMES A DAY NEEDED FOR COUGH Referrals Follow up/Referrals: Perry Hicks MD [Primary Care Provider] - See instructions Clinical Impressions Clinical Impression: Chronic pain Discharge ED Provider: Sridhar Pino General Adult HPI General Chief complaint: PAIN Stated complaint: left shoulder pain, surgery to be done 01/21 Time Seen by Provider: 01/06/23 19:50 Mode of Arrival: Family Vehicle Source of Information: Patient Limitations: No Limitations Description of Symptoms (Recalled from ER Triage Doc. by RN): 52 yo female presents with CC of continued left shoulder pain. Patient currently receives oxycodone and gabapentin for analgesic tx of cervical and colon cancer.Patient reports she is out of her medication an the pain has become greater than 10/10. History of Present Illness HPI narrative: 52-year-old white female complains of left shoulder pain the patient has a primary care provider has orthopedic surgeon she has complaints all over her body plates in her skull pain in her back cervical cancer. The patient simply came for something to help with the pain. She is on oxycodone and gabapentin. I have explained that we have policies on pain management and that we can give her a shot of a nonnarcotic pain medicine but that her ongoing pain control is to be handled by her primary care. She lists allergies to codeine erythromycin and penicillins Related Data Previous Rx's Medication Instructions Recorded loperamide 2 mg capsule (Imodium 2 mg PO Q6H PRN loose stool #30 10/05/22 A-D) caps fluticasone propionate 50 See Rx Instructions .Route 11/30/22 mcg/actuation nasal .COMPLEX #16 grams spray,suspension olopatadine 0.2 % eye drops 1 drp ophthalmic (eye) DAILY #2.5 11/30/22 (Pataday Once Daily Relief) mL loratadine 10 mg tablet See Rx Instructions .Route 12/07/22 .COMPLEX #30 tabs promethazine 25 mg tablet 25 mg PO NEEDED PRN Nausea #30
[2023-01-06 20:20] VITALS: BP 0/0; PULSE 0; RESP 0; TEMP -17.7; TEMP 0
== END 2023-01-06 20:22 | disposition home or self-care (01) ==
PROVIDERS: Emergency Provider Emergency Medicine; PCP Emergency Medicine
DX: M25.512 Pain in left shoulder (principal)
CPT/HCPCS: 96372; 99283; 99284

== ENCOUNTER → 2023-01-26 16:38 | Outpatient (CLI) | payer MEDICAID, SELFPAY ==
[2023-01-26 17:13] LABS: Basophils % 0.3 % (0.1-2.0); Eosinophils # 0.1 K/mm3 (0.0-0.4); Eosinophils % 0.8 % (0.1-12.0); Hematocrit 41.9 % (37.0-47.0); Hemoglobin 13.4 g/dL (12.2-16.2); Lymphocytes # 2.1 K/mm3 (0.7-4.5); Lymphocytes % 34.2 % (10-50); Mean Corpuscular Hemoglobin 31.7 pg (27.0-31.2); Monocytes # 0.2 K/mm3 (0.1-1.0); Monocytes % 3.3 % (1.7-9.3); Neutrophils # 3.8 K/mm3 (1.8-7.8); Neutrophils % 61.4 % (37.0-80.0); Platelet Count 330 K/mm3 (142-424); Red Blood Count 4.23 M/mm3 (4.20-5.40); Red Cell Distribution Width 13.4 % (11.5-17.5); White Blood Count 6.3 K/mm3 (4.8-10.8)
[2023-01-26 17:42] LABS: Alanine Aminotransferase 58 U/L (12-78); Albumin Level 5.3 g/dl (3.5-5.0); Albumin/Globulin Ratio 1.5 (1.1-1.8); Alkaline Phosphatase 165 U/L (38-126); Anion Gap 18.1 mEq/L (5-15); Aspartate Amino Transferase 181 U/L (14-36); Bilirubin,Total 0.7 mg/dl (0.2-1.3); Blood Urea Nitrogen 6 mg/dl (7-17); Carbon Dioxide 25 mmol/L (22.0-30.0); Chloride 99 mmol/L (98-107); Estimated Glomerular Filt Rate 130 ml/min (>60); GFR (African American) 157 ML/MIN (>60); Globulin 3.6 g/dL (1.3-3.2); Glucose 105 mg/dl (74-100); Potassium 4.1 mmoL/L (3.5-5.1); Sodium 138 mmol/L (136-145); Total Protein,Serum 8.9 g/dl (6.3-8.2); Triglycerides 52 mg/dl (30-150); VLDL Cholesterol 10 mg/dL (0-40)
[2023-01-26 17:48] LABS: Cholesterol 310 mg/dl (140-200)
[2023-01-26 17:53] LABS: Direct LDL Cholesterol 90.16 mg/dL (100-129)
[2023-01-26 17:58] LABS: Free T4 (Free Thyroxine) 1.11 ng/dl (0.78-2.19)
[2023-01-26 17:59] LABS: 25-OH Vitamin D, Total 13.5 ng/mL (30-100)
[2023-01-26 18:12] LABS: Thyroid Stimulating Hormone 0.67 uIU/mL (0.465-4.68)
[2023-01-26 18:30] LABS: Chol/HDL Ratio 1.5 (1-3.5); HDL Cholesterol 205 mg/dl (40-60)
[2023-01-26 19:45] LABS: Amphetamine/Metha Screen,Urine Negative ng/ml (<1000)
[2023-01-26 19:46] LABS: Barbiturates Screen,Urine Negative ng/ml (<200)
[2023-01-26 19:47] LABS: Benzodiazepines Screen,Urine Negative ng/ml (<200); Cannabinoid Screen,Urine Negative ng/ml (<50)
[2023-01-26 19:48] LABS: Cocaine Screen,Urine Negative ng/ml (<300)
[2023-01-26 19:49] LABS: Methadone Screen,Urine Negative ng/ml (<300)
[2023-01-26 19:50] LABS: Opiate Screen,Urine Positive ng/ml (<300)
[2023-01-26 19:51] LABS: Phencyclidine Screen,Urine Negative ng/ml (<25)
[2023-01-31 14:44] LABS: Lyme B. burgdorferi PCR Blood Negative (Negative)
== END ==
PROVIDERS: PCP Emergency Medicine; Visit Provider Emergency Medicine
DX: R53.83 Other fatigue (principal); E55.9 Vitamin D deficiency, unspecified; Z79.899 Other long term (current) drug therapy; W57.XXXA Bitten or stung by nonvenomous insect and other nonvenomous arthropods, initial encounter
CPT/HCPCS: 36415; 80053; 80061; 80305; 82306; 84439; 84443; 85025; 87476

== ENCOUNTER → 2023-02-05 13:14 | Outpatient (CLI) | payer MEDICAID, SELFPAY ==
[2023-02-08 05:56] LABS: HBsAg Screen Negative (Negative); HCV Ab Non Reactive (Non Reactive); Hep A Ab, IGM Negative (Negative); Hep B Core Ab, IgM Negative (Negative)
== END ==
PROVIDERS: Physician Assistant; PCP Emergency Medicine; Visit Provider Emergency Medicine
DX: R74.8 Abnormal levels of other serum enzymes (principal)
CPT/HCPCS: 36415; 80074

== ENCOUNTER → 2023-02-23 13:02 | Outpatient (CLI) | payer MEDICAID, SELFPAY ==
[2023-02-23 16:36] LABS: Amphetamine/Metha Screen,Urine Negative ng/ml (<1000); Barbiturates Screen,Urine Negative ng/ml (<200); Benzodiazepines Screen,Urine Negative ng/ml (<200); Cocaine Screen,Urine Negative ng/ml (<300); Phencyclidine Screen,Urine Negative ng/ml (<25)
[2023-02-23 17:04] LABS: Opiate Screen,Urine Positive ng/ml (<300)
[2023-02-23 17:05] LABS: Cannabinoid Screen,Urine Negative ng/ml (<50)
[2023-02-23 17:11] LABS: Methadone Screen,Urine Negative ng/ml (<300)
== END ==
PROVIDERS: PCP Emergency Medicine; Visit Provider Emergency Medicine
DX: Z79.899 Other long term (current) drug therapy (principal)
CPT/HCPCS: 80305

== ENCOUNTER → 2023-02-25 15:19 | Outpatient (CLI) | payer MEDICAID, SELFPAY ==
--- NOTE | 2023-02-25 15:19 | MM_ITS ---
PROCEDURE INFORMATION: Exam: MG Bilateral Diagnostic Breast Tomosynthesis Exam date and time: 02/25/2023 3:09 PM Age: 52 years old Clinical indication: Bilateral breast pain; Bilateral breast palpable lumps TECHNIQUE: Imaging protocol: Bilateral Diagnostic tomosynthesis and 2D mammography including computer-aided detection (CAD) when performed. Unilateral or bilateral exam. COMPARISON: 1. MG MM DIG SCREENING MAMM BI W/CAD 10/01/2019 10:47 AM 2. MG SCBI MM Dig screening mamm BI w/CAD 08/11/2018 9:59 AM FINDINGS: MAMMOGRAPHY: The breast tissue is almost entirely fatty. There is no stellate mass, architectural distortion or suspicious microcalcifications in either breast to suggest malignancy. Additional spot compression views of both breast demonstrate predominantly adipose tissue No skin thickening or axillary adenopathy. IMPRESSION: Patient to return for bilateral breast ultrasound for full evaluation of the patient's complaint of bilateral palpable abnormalities. ASSESSMENT: BI-RADS Category 0: Incomplete- Need Additional Imaging Evaluation and/or Prior Mammograms for Comparison
== END ==
PROVIDERS: PCP Emergency Medicine; Visit Provider Obstetrics & Gynecology
DX: N64.4 Mastodynia (principal)
CPT/HCPCS: 77062; 77066; G0279

== ENCOUNTER → 2023-03-02 17:22 | Outpatient (CLI) | payer MEDICAID, SELFPAY ==
--- NOTE | 2023-03-02 17:32 | XR_ITS ---
PROCEDURE INFORMATION: Exam: XR Left Ankle Exam date and time: 03/02/2023 5:33 PM Age: 52 years old Clinical indication: Pain; Ankle; Left; Additional info: Foot pain left ankle pain TECHNIQUE: Imaging protocol: Radiologic exam of the left ankle. Views: 3 or more views. COMPARISON: CR XR ANKLE LT 2V 09/07/2021 4:01 PM FINDINGS: Bones/joints: There is a partially visualized pes planus deformity. No acute fracture or dislocation is identified. Soft tissues: Normal. IMPRESSION: No acute osseous injury.
--- NOTE | 2023-03-02 17:32 | XR_ITS ---
PROCEDURE INFORMATION: Exam: XR Left Foot Complete; Alignment Exam date and time: 03/02/2023 5:33 PM Age: 52 years old Clinical indication: Pain; Foot; Left; Additional info: Foot pain left TECHNIQUE: Imaging protocol: Radiologic exam of the left foot. Views: 3 or more views. COMPARISON: CR XR FOOT LT 2V 09/07/2021 4:03 PM FINDINGS: Bones/joints: There is a very slight hallux valgus deformity. There is a pes planus deformity. No acute fracture or dislocation is identified. Soft tissues: Normal. IMPRESSION: No acute osseous injury.
--- NOTE | 2023-03-02 17:32 | XR_ITS ---
PROCEDURE INFORMATION: Exam: XR Right Ankle Exam date and time: 03/02/2023 5:33 PM Age: 52 years old Clinical indication: Pain; Ankle; Right; Additional info: Foot pain. Right ankle pain TECHNIQUE: Imaging protocol: Radiologic exam of the right ankle. Views: 3 or more views. COMPARISON: CR [id number] XR foot wt bearing RT 3V 08/08/2018 12:55 PM FINDINGS: Bones/joints: Normal. Soft tissues: Normal. IMPRESSION: No acute findings.
--- NOTE | 2023-03-02 17:32 | XR_ITS ---
PROCEDURE INFORMATION: Exam: XR Right Foot Complete; Alignment Exam date and time: 03/02/2023 5:33 PM Age: 52 years old Clinical indication: Pain; Foot; Right; Additional info: Foot pain right TECHNIQUE: Imaging protocol: Radiologic exam of the right foot. Views: 3 or more views. COMPARISON: CR [id number] XR foot wt bearing RT 3V 08/08/2018 12:55 PM FINDINGS: Bones/joints: There is a hallux valgus deformity. There is a pes planus deformity. No acute fracture or dislocation is identified. Soft tissues: Normal. IMPRESSION: No acute osseous injury.
== END ==
PROVIDERS: PCP Emergency Medicine; Visit Provider Nurse Practitioner Family
DX: M79.672 Pain in left foot (principal); M79.671 Pain in right foot; M25.572 Pain in left ankle and joints of left foot; M25.571 Pain in right ankle and joints of right foot
CPT/HCPCS: 73610; 73630

== ENCOUNTER → 2023-03-07 09:07 | Outpatient (CLI) | payer MEDICAID, SELFPAY ==
--- NOTE | 2023-03-07 09:07 | US_ITS ---
PROCEDURE INFORMATION: Exam: US Right Breast, Complete Exam date and time: 03/07/2023 9:20 AM Age: 52 years old Clinical indication: Breast pain; Bilateral TECHNIQUE: Imaging protocol: Complete ultrasound of all four quadrants of the right breast and the retroareolar regions, including ultrasound of the axilla when performed. COMPARISON: MG MM DIG MAMM BI DX W/CAD 02/25/2023 3:09 PM FINDINGS: Breast: Sonographic images of the right breast including the retroareolar region, all 4 quadrants and the axilla do not demonstrate any solid or cystic masses with the exception of an incidental 0.7 cm superficial lipoma in the 2 o'clock axis 2 cm from the nipple. No architectural distortion or acoustical shadowing. No skin thickening or axillary adenopathy. IMPRESSION: No sonographic evidence of malignancy. Annual mammographic screening is recommended unless otherwise clinically indicated. ASSESSMENT: BI-RADS Category 2: Benign
--- NOTE | 2023-03-07 09:07 | US_ITS ---
FINAL REPORT CLINICAL HISTORY: elevated liver enzymes COMPARISON: None FINDINGS: Sonographic images of the right upper quadrant were obtained. The pancreas is partially obscured. Fatty infiltration of the liver. The gallbladder is surgically absent. The common duct measures 4mm. Limited images of the right kidney are unremarkable. IMPRESSION: Fatty liver. Reviewed, Interpreted and Dictated by Oswaldo Barrett III, MD Transcribed by Nicolle Daigle Authenticated and [facility]
--- NOTE | 2023-03-07 09:07 | US_ITS ---
PROCEDURE INFORMATION: Exam: US Left Breast, Complete Exam date and time: 03/07/2023 9:28 AM Age: 52 years old Clinical indication: Breast pain; Bilateral palpable abnormality in the left 2 o'clock axis TECHNIQUE: Imaging protocol: Complete ultrasound of all four quadrants of the left breast and the retroareolar regions, including ultrasound of the axilla when performed. COMPARISON: MG MM DIG MAMM BI DX W/CAD 02/25/2023 3:09 PM FINDINGS: Breast: Sonographic images of the left breast including the retroareolar region, all 4 quadrants and the axilla do not demonstrate any solid or cystic masses. This is with particular attention to the 2 o'clock axis where the patient reports a palpable abnormality. Predominantly adipose tissue is noted. No architectural distortion or acoustical shadowing. No skin thickening or axillary adenopathy. Other findings: Review of the patient's most recent mammogram dated 02/25/2023 did not demonstrate any suspicious findings. IMPRESSION: No sonographic evidence of malignancy. Further evaluation of a palpable abnormality should be based on clinical grounds regardless of radiographic findings or lack thereof.Annual mammographic screening is recommended unless otherwise clinically indicated. ASSESSMENT: BI-RADS Category 1: Negative
== END ==
PROVIDERS: PCP Emergency Medicine; Visit Provider Emergency Medicine
DX: R74.8 Abnormal levels of other serum enzymes (principal); N64.4 Mastodynia
CPT/HCPCS: 76641; 76705

== ENCOUNTER 2023-04-17 16:34 | Emergency (ER) | payer MEDICAID, SELFPAY ==
[2023-04-17 16:34] VITALS: BP 166/103; PULSE 94; RESP 20; TEMP 36.6; O2SAT 100; BMI 19.8
--- NOTE | 2023-04-17 17:23 | XR_ITS ---
PROCEDURE INFORMATION: Exam: XR Left Shoulder Exam date and time: 04/17/2023 5:44 PM Age: 52 years old Clinical indication: Pain; Shoulder; Left; Additional info: L shoulder pain atraumatic TECHNIQUE: Imaging protocol: Radiologic exam of the left shoulder. Views: 2 or more views. COMPARISON: CR XR SHOULDER LT MIN 2V 11/19/2022 4:46 PM FINDINGS: Limitations: Bra artifact. Bones/joints: No acute fracture or dislocation. No significant degenerative change of the glenohumeral or acromioclavicular joint. No lytic or blastic skeletal lesions. Cervicothoracic junction spine fusion hardware. Soft tissues: Normal. IMPRESSION: 1. Radiographically unremarkable shoulder. 2. Cervicothoracic junction spine fusion hardware.
--- NOTE | 2023-04-17 17:51 | PC.NURSE ---
Pt reports Dr. Hicks told me to stop taking the steroids because it gave me a rash that I still have not gotten better . MD notified of this. Pt initially refused to go to xray without pain pill . MD notified of this.
--- NOTE | 2023-04-17 17:52 | HMH.EDGENADL ---
Discharge Plan Disposition Patient Disposition: Home, Self-Care Chief Complaint: PAIN Prescriptions Prescriptions: No Action gabapentin 800 mg tablet 800 mg PO TID Qty: 90 1RF fluticasone propionate 50 mcg/actuation spray,suspension See Rx Instructions .ROUTE .COMPLEX Qty: 16 2RF Rx Instructions: USE 1 SPRAY IN EACH NOSTRIL 2 TIMES A DAY FOR ALLERGIES loperamide [Imodium A-D] 2 mg capsule 2 mg PO Q6H PRN (Reason: loose stool) Qty: 30 0RF Clenpiq 10 mg-3.5 gram- 12 gram/160 mL solution 160 ml PO DAILY Qty: 350 0RF Rx Instructions: take first dose at 5-9PM evening before colonoscopy; 2nd dose the next day approximately 5 hrs before colonoscopy sodium,potassium,mag sulfates [Suprep Bowel Prep Kit] 17.5-3.13-1.6 gram recon soln See Rx Instructions PO .COMPLEX Qty: 354 0RF Rx Instructions: DILUTE; drink full amount early evening before AND next morning at least 2 hr before procedure; follow w 960 mL water PO methylprednisolone [Medrol (Iron)] 4 mg tablets,dose pack See Rx Instructions PO PER PKG DIR Qty: 21 0RF Rx Instructions: PO PER PKG DIR promethazine 25 mg tablet 25 mg PO TID PRN (Reason: nausea and vomiting) Qty: 20 0RF minocycline 100 mg capsule 100 mg PO BID Qty: 14 0RF ketotifen fumarate [Eye Itch Relief] 0.025 % (0.035 %) drops See Rx Instructions .ROUTE .COMPLEX Qty: 5 0RF Rx Instructions: INSTILL 1 DROP IN AFFECTED EYE(S) 2 TIMES A DAY clonazepam 0.5 mg tablet 0.5 mg PO QID Qty: 120 0RF omeprazole 40 mg capsule,delayed release(DR/EC) See Rx Instructions .ROUTE .COMPLEX Qty: 30 0RF Dose Instruction: TAKE ONE CAPSULE BY MOUTH ONCE A DAY FOR GERD Rx Instructions: TAKE ONE CAPSULE BY MOUTH ONCE A DAY FOR GERD levothyroxine 25 mcg tablet See Rx Instructions .ROUTE .COMPLEX Qty: 30 0RF Dose Instruction: TAKE ONE TABLET BY MOUTH ONCE A DAY FOR THYROID Rx Instructions: TAKE ONE TABLET BY MOUTH ONCE A DAY FOR THYROID benzonatate 100 mg capsule See Rx Instructions .ROUTE .COMPLEX Qty: 30 0RF Dose Instruction: TAKE ONE CAPSULE BY MOUTH 3 TIMES A DAY NEEDED FOR COUGH Rx Instructions: TAKE ONE CAPSULE BY MOUTH 3 TIMES A DAY NEEDED FOR COUGH hydrocodone-acetaminophen 10-325 mg tablet 1 tab PO QID Qty: 120 0RF hydrocortisone-aloe vera [Anti-Itch(hydrocortisone)-Aloe] 1 % cream 1 applic topical BID atorvastatin 10 mg tablet 10 mg PO DAILY loratadine 10 mg tablet See Rx Instructions .ROUTE .COMPLEX Rx Instructions: TAKE ONE TABLET BY MOUTH ONCE A DAY Referrals Follow up/Referrals: Perry Hicks MD [Primary Care Provider] - See instructions Activity Restrictions/Add. Instructions Additional Instructions/Restrictions: Call your family doctor to establish care for this visit to the emergency department and schedule follow-up within 48 hours to ensure improvement. If you have any worsening of your condition or any other concerning signs or symptoms, return to the emergency department or your primary care doctor for further evaluation. Clinical Impressions Clinical Impression: Chronic pain in left shoulder, Chronic neck and back pain Chronic pain Qualifiers: Chronic pain type: chronic pain syndrome Qualified Code(s): G89.4 - Chronic pain syndrome Discharge ED Provider: Boni Alcantara General Adult [facility] General Chief complaint: PAIN Stated complaint: Back Pain Time Seen by Provider: 04/17/23 16:35 Mode of Arrival: EMS Source of Information: Patient Limitations: No Limitations Description of Symptoms (Recalled from ER Triage Doc. by RN): Presents to ED with c/o generalized back pain that began tuesday morning. Patient reports having rotator cuff surgery recently and has been Rx'd Hydrocodone but is currently out of her medications. Patient states that she has been seen for this back pain before but no doctor has been able to adequatly manage
--- NOTE | 2023-04-17 18:39 | PC.NURSE ---
patient moved to chair for comfort
[2023-04-17 19:11] VITALS: BP 145/82; PULSE 91; O2SAT 98
[2023-04-17 19:25] VITALS: BP 145/82; PULSE 90; RESP 18; TEMP 36.6; O2SAT 99
[2023-04-17 19:30] VITALS: BP 150/95; PULSE 89; RESP 16; O2SAT 99
== END 2023-04-17 20:23 | disposition home or self-care (01) ==
PROVIDERS: Emergency Provider Emergency Medicine; PCP Emergency Medicine
DX: M54.2 Cervicalgia (principal); M25.512 Pain in left shoulder; M54.9 Dorsalgia, unspecified; G89.4 Chronic pain syndrome; J44.9 Chronic obstructive pulmonary disease, unspecified; E78.5 Hyperlipidemia, unspecified; M51.16 Intervertebral disc disorders with radiculopathy, lumbar region; Z85.038 Personal history of other malignant neoplasm of large intestine
CPT/HCPCS: 73030; 96372; 99283

== ENCOUNTER → 2023-05-02 12:23 | Outpatient (CLI) | payer MEDICAID, SELFPAY ==
[2023-05-02 20:56] LABS: Amphetamine/Metha Screen,Urine Negative ng/ml (<1000); Barbiturates Screen,Urine Negative ng/ml (<200)
[2023-05-02 20:57] LABS: Benzodiazepines Screen,Urine Negative ng/ml (<200); Cannabinoid Screen,Urine Negative ng/ml (<50)
[2023-05-02 20:58] LABS: Cocaine Screen,Urine Negative ng/ml (<300)
[2023-05-02 20:59] LABS: Methadone Screen,Urine Negative ng/ml (<300); Opiate Screen,Urine Positive ng/ml (<300)
[2023-05-02 21:00] LABS: Phencyclidine Screen,Urine Negative ng/ml (<25)
== END ==
PROVIDERS: PCP Emergency Medicine; Visit Provider Emergency Medicine
DX: G89.29 Other chronic pain (principal)
CPT/HCPCS: 80305

== ENCOUNTER 2023-05-06 09:02 | Day surgery (SDC) | payer MEDICAID, SELFPAY ==
[2023-03-08 09:50] VITALS: BMI 20.2
[2023-05-04 14:11] VITALS: BMI 20.3
[2023-05-06] VITALS (8 sets, daily range): BP systolic 127–146; BP diastolic 74–94; PULSE 81–91; RESP 14–18; TEMP 36.6–37.1; O2SAT 98–100
--- NOTE | 2023-05-06 09:36 | HMH.SCOPE ---
Procedure: Date: 05/06/23 Patient Date of :: 1970 Procedure Performed:: Total colonoscopy to terminal ileum with polypectomy using hot snare and biopsy forceps Indications:: Patient is a 52-year-old female. I had performed EGD and colonoscopy on her on 07/31/2019. She has a family history of colon cancer in her mother and maternal aunt. At that time she was found to have a 10 mm sessile serrated adenoma. Repeat colonoscopy was recommended for 2 years given the family history and moderate-sized sessile serrated adenoma. Colonoscopy was performed on 06/25/2022 at which time she was found to have an incredibly poor preparation with some formed stool encountered. However the colonoscope was able to be advanced to the cecum but colon could not be completely cleared with extremely poor visualization. Therefore it was recommended the patient undergo rescheduling with aggressive bowel preparation. Apparently she does take Imodium regularly. She has not had this for several days. She underwent traditional bowel prep with Clenpiq. Performing Provider:: Oswaldo Carrasquillo MD Referring Provider:: Brandon Hicks MD Sedation:: MAC sedation Procedure:: Patient history was obtained and appropriate physical examination was performed. Patient's medications and allergies were reviewed. Informed consent was obtained after explaining the benefits, alternatives, and risks of the procedure including, but not limited to, bleeding, perforation, missed lesions, and adverse reaction to anesthesia medications. Patient was transported to endoscopy procedure room. Patient was connected to monitoring devices. Throughout the procedure the patient's blood pressure, pulse, and oxygen saturations were monitored continuously. Patient identification and planned procedure were verified by the staff. Patient was positioned in lateral decubitus position. Digital anorectal exam was performed. Variable stiffness Olympus colonoscope was inserted and advanced under direct visualization to the cecum. Adequacy of the colonic preparation was noted. The colonoscope was advanced a short distance into the terminal ileum. The colonoscope was then slowly withdrawn while carefully examining the color, texture, anatomy, and integrity of the mucosoa circumferentially. Within the rectum retroflexion was performed. Colonoscope was then withdrawn. . Colonic preparation was good. There was a moderately large sessile ridge polyp in the ascending colon. This was removed in a piecemeal fashion using hot snare with some use of cold cutting snare. It appeared as though likely the entire polyp was removed but this was difficult to determine for certain due to electrocautery artifact edema. Submucosal injection of Cee ink was used at the completion polypectomy to celia the area for future reference. Colonoscope was withdrawn through the remainder of the colon and there was noted to be a couple of diminutive hyperplastic appearing polyps of the rectosigmoid removed with cold biopsy forceps. . Findings:: Moderately large ridge polyp, likely serrated adenoma, in the ascending colon. Removed piecemeal fashion using hot snare with injection Cee ink Hyperplastic appearing rectosigmoid polyps removed with cold biopsy forceps . Recommendations:: Repeat colonoscopy 6 to 12 months pending the pathology to ensure complete polypectomy and rule out early recurrence. Complications:: None immediate Estimated blood obtained (mL): 2 Colonoscopy Component Colonoscopy Component Was a colonoscopy performed during today's procedure?: Yes Recommended follow up colonoscopy of at least 10 years?: No If no, follow up colonoscopy recommended in ___ years?: 0.5-1.0 Reason for not recommending >/= 10 yr follow-up interval?: See above
--- NOTE | 2023-05-06 09:41 | EXP.ANES.CKL ---
[facility] Disclaimer: The information contained in this section may have been updated after the patient was seen, as this information can be updated by other users. Medical History (Updated 05/06/23 @ 09:19 by rSidhar Pritchett RN) Abnormal electrocardiography Anxiety Back pain Bilateral pendulous breasts Chest tightness Colon cancer COPD (chronic obstructive pulmonary disease) Daytime somnolence Dyspnea Encounter for pre-operative cardiovascular clearance Feeling of incomplete bladder emptying History of ovarian cancer Hyperlipidemia LGSIL Pap smear of vagina Lumbar disc disease with radiculopathy Surgical History (Updated 05/06/23 @ 09:20 by Sridhar Pritchett RN) History of cholecystectomy History of cranial surgery History of hysterectomy Hx of neck surgery Family History Other Family history of asthma Family history of bronchitis Family history of cancer Family history of diabetes mellitus type II Family history of myocardial infarction Family history of stroke Social History (Updated 05/06/23 @ 09:21 by Sridhar Pritchett RN) Smoking Status: Never smoker second hand exposure: No alcohol intake: never substance use type: denies use current occupational status: disabled Travel in the last 8 weeks: None household members: none housing: house lives independently: Yes marital status: single number of children: 3 education level: high school current occupational exposures/hazards: No caffeine: No special christopher needs: No agree to transfusion: No do you feel safe at home: Yes victim of physical abuse: No victim of emotional abuse: No victim of sexual abuse: No would you like helpful sources: No [facility] Anesthesia Checklist Patient Identification Patient Identification: Arm Band Structural Data Admitted From: Home Planned Operative Procedure/s: Colonoscopy Consent for Planned Operative Procedure(s) Verified: Yes Verified Documents: Surgical Consent and History and Physical NPO Status Verified Time NPO: 00:00 Additional verifications Anesthesia Reactions: Yes (states flat lined in the past ) Hx Blood Transfusions: No Blood Transfusion Reaction: No Airway Assessment Mallampati Score:: Class II C-Spine Mobility Assessed: Yes TMJ Mobility Assessed: Yes Dentition: Good Dentition Neurological Assessment Level of Consciousness: Awake and Alert Anesthesia Plan Anesthesia Risk discussed: Yes Anesthesia Plan: Verified ASA Class: II Anesthesia Type: MAC
--- NOTE | 2023-05-06 14:10 | EXP.ANES.I ---
[facility] Anesthesia Record Part I Anesthesia Record I Intake, IV Amount: 500 Hydration: Adequate Estimated blood loss (mL): 1 Urine output (mL): 0 Blood Products used (#): none Blood Pressure: 127/74 SaO2: 98 Pulse Rate: 86 Airway Patency: Patent Respiratory Rate: 14 Temperature: 97.9 F Patient is:: Awake and Stable Stable to PACU at:: 10:40
== END 2023-05-06 11:05 | disposition home or self-care (01) ==
PROVIDERS: PCP Emergency Medicine; Visit Provider Surgery
PROC: 0DJD8ZZ Inspection of Lower Intestinal Tract, Via Natural or Artificial Opening Endoscopic (ICD-10-PCS; CPT 45380; principal; 2023-05-06 10:00)
DX: Z12.11 Encounter for screening for malignant neoplasm of colon (principal); Z86.010 Personal history of colon polyps; Z80.0 Family history of malignant neoplasm of digestive organs; D12.2 Benign neoplasm of ascending colon
CPT/HCPCS: 45380; 45385

== ENCOUNTER → 2023-06-13 18:36 | Outpatient (CLI) | payer MEDICAID, SELFPAY ==
--- NOTE | 2023-06-13 18:56 | XR_ITS ---
PROCEDURE INFORMATION: Exam: XR Left Knee Exam date and time: 06/13/2023 6:53 PM Age: 52 years old Clinical indication: Pain; Knee; Left; Additional info: Knee pain TECHNIQUE: Imaging protocol: Radiologic exam of the left knee. Views: 3 views. COMPARISON: CR XR KNEE LT 2V 09/07/2021 4:00 PM FINDINGS: Bones/joints: Normal. Soft tissues: Normal. IMPRESSION: No acute findings.
--- NOTE | 2023-06-13 18:56 | XR_ITS ---
PROCEDURE INFORMATION: Exam: XR Right Knee Exam date and time: 06/13/2023 6:52 PM Age: 52 years old Clinical indication: Pain; Knee; Right; Additional info: Knee pain TECHNIQUE: Imaging protocol: Radiologic exam of the right knee. Views: 3 views. COMPARISON: CR XR ANKLE WT BEARING RT MIN 3V 03/02/2023 5:33 PM FINDINGS: Bones/joints: Normal. Soft tissues: Normal. IMPRESSION: No acute findings.
== END ==
PROVIDERS: PCP Emergency Medicine; Visit Provider Emergency Medicine
DX: M25.561 Pain in right knee (principal); M25.562 Pain in left knee
CPT/HCPCS: 73562

== ENCOUNTER 2023-06-13 19:13 | Emergency (ER) | payer MEDICAID, SELFPAY ==
[2023-06-13 19:14] VITALS: BP 154/91; PULSE 84; RESP 16; TEMP 36.6; O2SAT 98; BMI 20.9
--- NOTE | 2023-06-13 19:31 | XR_ITS ---
PROCEDURE INFORMATION: Exam: XR Pelvis Exam date and time: 06/13/2023 7:28 PM Age: 52 years old Clinical indication: Injury or trauma; Fall; Blunt trauma (contusions or hematomas); Bilateral; Pelvic region TECHNIQUE: Imaging protocol: Radiologic exam of the pelvis. Views: 1 or 2 view. COMPARISON: CT ABDOMEN PELVIS WO CON 11/05/2022 4:01 PM FINDINGS: Bones/joints: Partially visualized mild lumbar scoliosis. Osseous alignment is otherwise normal. No acute fracture. Mild degenerative changes at the L2-L3 disc level. No other significant degenerative/arthritic changes. Soft tissues: Unremarkable. IMPRESSION: No acute abnormality
--- NOTE | 2023-06-13 20:20 | HMH.EDGENADL ---
Discharge Plan Disposition Patient Disposition: Home, Self-Care Prescriptions Prescriptions: New methocarbamol 750 mg tablet 750 mg PO TID 5 Days Qty: 15 0RF No Action cholecalciferol (vitamin D3) [Vitamin D3] 50 mcg (2,000 unit) capsule 50 mcg PO DAILY ergocalciferol (vitamin D2) 1,250 mcg (50,000 unit) capsule 1,250 mcg PO WEEKLY fluticasone propionate 50 mcg/actuation spray,suspension See Rx Instructions .ROUTE .COMPLEX Qty: 16 2RF Rx Instructions: USE 1 SPRAY IN EACH NOSTRIL 2 TIMES A DAY FOR ALLERGIES gabapentin 800 mg tablet 800 mg PO TID Qty: 90 1RF hydrocodone-acetaminophen 10-325 mg tablet 1 tab PO QID Qty: 120 0RF ketorolac 10 mg tablet 10 mg PO TID 10 Days Qty: 30 0RF Rx Instructions: received a toradol shot in the office today ketotifen fumarate [Allergy Eye (ketotifen)] 0.025 % (0.035 %) drops 1 drp ophthalmic (eye) BID Qty: 5 1RF Rx Instructions: administer at least 8 hours apart loperamide [Imodium A-D] 2 mg capsule 2 mg PO Q6H PRN (Reason: loose stool) Qty: 30 0RF loratadine 10 mg tablet See Rx Instructions .ROUTE .COMPLEX Qty: 30 0RF Dose Instruction: TAKE ONE TABLET BY MOUTH ONCE A DAY Rx Instructions: TAKE ONE TABLET BY MOUTH ONCE A DAY diphenhydramine HCl [Benadryl] 25 mg capsule 25 mg PO TID PRN (Reason: allergy symptoms) Qty: 90 0RF clonazepam 0.5 mg tablet 0.5 mg PO QID Qty: 120 0RF benzonatate 100 mg capsule See Rx Instructions .ROUTE .COMPLEX Qty: 30 0RF Dose Instruction: TAKE ONE CAPSULE BY MOUTH 3 TIMES A DAY NEEDED FOR COUGH Rx Instructions: TAKE ONE CAPSULE BY MOUTH 3 TIMES A DAY NEEDED FOR COUGH promethazine 25 mg tablet See Rx Instructions .ROUTE .COMPLEX Qty: 20 0RF Dose Instruction: TAKE ONE TABLET BY MOUTH 3 TIMES A DAY NEEDED FOR NAUSEA AND VOMITING Rx Instructions: TAKE ONE TABLET BY MOUTH 3 TIMES A DAY NEEDED FOR NAUSEA AND VOMITING levothyroxine 25 mcg tablet See Rx Instructions .ROUTE .COMPLEX Qty: 30 0RF Dose Instruction: TAKE ONE TABLET BY MOUTH ONCE A DAY FOR THYROID Rx Instructions: TAKE ONE TABLET BY MOUTH ONCE A DAY FOR THYROID omeprazole 40 mg capsule,delayed release(DR/EC) See Rx Instructions .ROUTE .COMPLEX Qty: 30 0RF Dose Instruction: TAKE ONE CAPSULE BY MOUTH ONCE A DAY FOR GERD Rx Instructions: TAKE ONE CAPSULE BY MOUTH ONCE A DAY FOR GERD hydrocortisone-aloe vera [Anti-Itch(hydrocortisone)-Aloe] 1 % cream 1 applic topical BID atorvastatin 10 mg tablet 10 mg PO DAILY Referrals Follow up/Referrals: Perry Hicks MD [Primary Care Provider] - See instructions Activity Restrictions/Add. Instructions Additional Instructions/Restrictions: Take Tylenol 1000 mg every 6 hours (4 times daily) and ibuprofen 400 mg every 6 hours (4 times daily) as needed with food and water to prevent GI upset and kidney damage. Call your family doctor to establish care for this visit to the emergency department and schedule follow-up within 48 hours to ensure improvement. If you have any worsening of your condition or any other concerning signs or symptoms, return to the emergency department or your primary care doctor for further evaluation. Also follow-up with orthopedics. Robaxin can cause you to feel drowsy. Do not drive, operate heavy machinery, or engage in any activity that may make you tired, fall asleep, and because harm to yourself or others while taking this medication. Clinical Impressions Clinical Impression: Acute bilateral knee pain Discharge ED Provider: Boni Alcantara General Adult [facility] General Chief complaint: Extremity Injury, Lower Stated complaint: bilateral knee pain Time Seen by Provider: 06/13/23 19:35 Mode of Arrival: Wheelchair Source of Information: Patient Limitations: No Limitations Description of Symptoms (Recalled from ER Triage Doc. by RN): pt states wa
[2023-06-13 20:41] VITALS: BP 154/72; PULSE 81; RESP 16; TEMP 36.6; O2SAT 98
--- NOTE | 2023-06-13 20:41 | PC.NURSE ---
wrapped both knees with errol bandages
== END 2023-06-13 20:52 | disposition home or self-care (01) ==
PROVIDERS: Emergency Provider Emergency Medicine; PCP Emergency Medicine
DX: M25.561 Pain in right knee (principal); M25.562 Pain in left knee; W18.39XA Other fall on same level, initial encounter; F17.290 Nicotine dependence, other tobacco product, uncomplicated; J44.9 Chronic obstructive pulmonary disease, unspecified; E78.5 Hyperlipidemia, unspecified; F41.9 Anxiety disorder, unspecified
CPT/HCPCS: 72170; 96372; 99283

== ENCOUNTER → 2023-06-24 08:24 | Outpatient (CLI) | payer MEDICAID, SELFPAY ==
[2023-06-24 16:05] LABS: Amphetamine/Metha Screen,Urine Negative ng/ml (<1000)
[2023-06-24 16:06] LABS: Barbiturates Screen,Urine Negative ng/ml (<200); Benzodiazepines Screen,Urine Negative ng/ml (<200)
[2023-06-24 16:07] LABS: Cannabinoid Screen,Urine Negative ng/ml (<50); Cocaine Screen,Urine Negative ng/ml (<300)
[2023-06-24 16:08] LABS: Methadone Screen,Urine Negative ng/ml (<300)
[2023-06-24 16:09] LABS: Opiate Screen,Urine Positive ng/ml (<300)
[2023-06-24 16:10] LABS: Phencyclidine Screen,Urine Negative ng/ml (<25)
== END ==
PROVIDERS: PCP Emergency Medicine; Visit Provider Nurse Practitioner Family
DX: F41.9 Anxiety disorder, unspecified (principal); Z79.899 Other long term (current) drug therapy
CPT/HCPCS: 80305

== ENCOUNTER 2023-08-09 12:00 | Outpatient (CLI) | payer MEDICAID, SELFPAY ==
[2023-08-09 13:41] LABS: Amphetamine/Metha Screen,Urine Negative ng/ml (<1000)
[2023-08-09 13:42] LABS: Barbiturates Screen,Urine Negative ng/ml (<200); Benzodiazepines Screen,Urine Positive ng/ml (<200)
[2023-08-09 13:43] LABS: Cannabinoid Screen,Urine Positive ng/ml (<50); Cocaine Screen,Urine Negative ng/ml (<300)
[2023-08-09 13:44] LABS: Methadone Screen,Urine Negative ng/ml (<300)
[2023-08-09 13:45] LABS: Opiate Screen,Urine Positive ng/ml (<300); Phencyclidine Screen,Urine Negative ng/ml (<25)
[2023-08-13 08:35] LABS: Gabapentin,Urine Negative (.)
[2023-08-13 13:10] LABS: Alprazolam Negative (Cutoff=100); Benzodiazepines Positive ng/mL (Cutoff=100); Clonazepam Negative (Cutoff=100); Flurazepam Negative (Cutoff=100); Lorazepam Negative (Cutoff=100); Midazolam Negative (Cutoff=100); Temazepam Positive (.); Triazolam Negative (Cutoff=100)
== END 2023-08-09 23:59 ==
LOC: LAB.DROPOF 12:01
PROVIDERS: PCP Nurse Practitioner Family; Visit Provider Nurse Practitioner Family
DX: Z79.899 Other long term (current) drug therapy (principal)
CPT/HCPCS: 80307; 80346; 80365

== ENCOUNTER 2023-09-01 07:19 | Emergency (ER) | payer MEDICAID, SELFPAY ==
[2023-09-01 07:20] VITALS: BP 154/99; PULSE 102; RESP 20; TEMP 36.6; O2SAT 99; BMI 19.4
--- NOTE | 2023-09-01 07:26 | CT_ITS ---
FINAL REPORT CLINICAL HISTORY: fall, hit head and back. midline pain COMPARISON: 05/09/2022 FINDINGS: Axial CT images of the thoracic spine were obtained without contrast. Sagittal and coronal reformatted images were also obtained. This study was performed with techniques to keep radiation doses as low as reasonably achievable (ALARA). Individualized dose reduction techniques using automated exposure control or adjustment of mA and/or kV according to the patient''s size were employed. There is no evidence of fracture. The vertebral alignment is normal. There are mild to moderate degenerative changes. There is mild rightward curvature. There is no evidence of significant canal stenosis. No paraspinous soft tissue abnormality is identified. IMPRESSION: No fracture or acute bony abnormality. No significant central canal stenosis. Reviewed, Interpreted and Dictated by Oswaldo Barrett III, MD Transcribed by Emilee Hardy Authenticated and [facility]
--- NOTE | 2023-09-01 07:26 | CT_ITS ---
FINAL REPORT TECHNIQUE: Axial imaging of the lumbar spine was obtained without contrast. Reformatted images were also obtained and reviewed.This study was performed with techniques to keep radiation doses as low as reasonably achievable, (ALARA). Individualized dose reduction techniques using automated exposure control or adjustment of mA and/or kV according to the patient's size were employed. CLINICAL HISTORY: fall, hit head and back, midline pain COMPARISON: 05/09/2022 FINDINGS: There is no acute fracture or subluxation. The vertebra are normal height. There are mild to moderate degenerative changes. Mild retrolisthesis is seen of L4 on L5 which is stable. Facets are properly aligned. Prevertebral soft tissues unremarkable. IMPRESSION: No acute bony abnormality. Reviewed, Interpreted and Dictated by Oswaldo Barrett III, MD Transcribed by Emilee Hardy Authenticated and [facility]
--- NOTE | 2023-09-01 07:26 | CT_ITS ---
FINAL REPORT CLINICAL HISTORY: fall, hit head and back COMPARISON: 05/09/2022 FINDINGS: Axial images of the head were obtained without contrast. Coronal reformatted images were also obtained.This study was performed with techniques to keep radiation doses as low as reasonably achievable (ALARA). Individualized dose reduction techniques using automated exposure control or adjustment of mA and/or kV according to the patient's size were employed. There is no evidence of intracranial hemorrhage or mass. The ventricular size is within normal limits. There is no evidence of shift of the midline structures. No abnormal extra axial fluid collection is identified. No skull abnormality is seen on the bone window images. IMPRESSION: No acute intracranial abnormality. Reviewed, Interpreted and Dictated by Oswaldo Barrett III, MD Transcribed by Emilee Hardy Authenticated and [facility]
--- NOTE | 2023-09-01 07:26 | XR_ITS ---
FINAL REPORT CLINICAL HISTORY: fall, L hip/shoulder/clavicle pain FINDINGS: SINGLE VIEW CHEST The heart is normal in size. The mediastinum is unremarkable. The lungs are clear. There is no pneumothorax. There are postoperative changes in the lower cervical spine. IMPRESSION: No acute process. Reviewed, Interpreted and Dictated by Oswaldo Barrett III, MD Transcribed by Janice Alvarado Authenticated and . [facility]
--- NOTE | 2023-09-01 07:26 | XR_ITS ---
FINAL REPORT CLINICAL HISTORY: fall, L hip/shoulder/clavicle pain COMPARISON: 04/17/2023 FINDINGS: LEFT SHOULDER Three views were obtained. There is no fracture or dislocation. The joint spaces appear normal. No soft tissue abnormality is identified. IMPRESSION: No acute process. Reviewed, Interpreted and Dictated by Oswaldo Barrett III, MD Transcribed by Janice Alvarado Authenticated and [facility]
--- NOTE | 2023-09-01 07:26 | XR_ITS ---
FINAL REPORT CLINICAL HISTORY: fall, hit head and back FINDINGS: CERVICAL SPINE 2 views were obtained. There is no acute fracture. There is fusion at C6-7. Disc osteophyte complex is seen at C5-6. There is no malalignment. IMPRESSION: Degenerative and postsurgical changes. Reviewed, Interpreted and Dictated by Oswaldo Barrett III, MD Transcribed by Janice Alvarado Authenticated and [facility]
--- NOTE | 2023-09-01 07:26 | XR_ITS ---
FINAL REPORT CLINICAL HISTORY: fall, L hip and shoulder pain COMPARISON: 06/13/2023 FINDINGS: LEFT HIP Three views were obtained. There is no fracture or dislocation. The joint spaces appear normal. No soft tissue abnormality is identified. IMPRESSION: No acute process. Reviewed, Interpreted and Dictated by Oswaldo Barrett III, MD Transcribed by Janice Alvarado Authenticated and [facility]
[2023-09-01] MEDS: IBUPROFEN 800 MG TABLET PO (07:40)
[2023-09-01] MEDS: ACETAMINOPHEN 500MG TAB 1000 MG PO (07:40)
--- NOTE | 2023-09-01 08:04 | ED_ITS ---
Discharge Plan Disposition Patient Disposition: Home, Self-Care Chief Complaint: Fall Prescriptions Prescriptions: No Action levothyroxine 25 mcg tablet See Rx Instructions .ROUTE .COMPLEX Qty: 90 2RF Dose Instruction: TAKE ONE TABLET BY MOUTH ONCE A DAY FOR THYROID Rx Instructions: TAKE ONE TABLET BY MOUTH ONCE A DAY FOR THYROID omeprazole 40 mg capsule,delayed release(DR/EC) See Rx Instructions .ROUTE .COMPLEX Qty: 90 2RF Dose Instruction: TAKE ONE CAPSULE BY MOUTH ONCE A DAY FOR GERD Rx Instructions: TAKE ONE CAPSULE BY MOUTH ONCE A DAY FOR GERD atorvastatin 10 mg tablet 10 mg PO DAILY Qty: 90 2RF cholecalciferol (vitamin D3) [Vitamin D3] 50 mcg (2,000 unit) capsule 50 mcg PO DAILY Qty: 90 2RF ergocalciferol (vitamin D2) 1,250 mcg (50,000 unit) capsule 1,250 mcg PO WEEKLY Qty: 90 2RF ketotifen fumarate [Allergy Eye (ketotifen)] 0.025 % (0.035 %) drops 1 drp ophthalmic (eye) BID Qty: 5 1RF Rx Instructions: administer at least 8 hours apart fluticasone propionate 50 mcg/actuation spray,suspension See Rx Instructions .ROUTE .COMPLEX Qty: 16 2RF Rx Instructions: USE 1 SPRAY IN EACH NOSTRIL 2 TIMES A DAY FOR ALLERGIES hydrocortisone-aloe vera [Anti-Itch(hydrocortisone)-Aloe] 1 % cream 1 applic topical BID Qty: 28.4 0RF loratadine 10 mg tablet See Rx Instructions .ROUTE .COMPLEX Qty: 90 0RF Dose Instruction: TAKE ONE TABLET BY MOUTH ONCE A DAY Rx Instructions: TAKE ONE TABLET BY MOUTH ONCE A DAY benzonatate 150 mg capsule 150 mg PO TID PRN (Reason: cough) Qty: 30 2RF promethazine 12.5 mg tablet See Rx Instructions .ROUTE .COMPLEX Qty: 20 0RF Dose Instruction: TAKE ONE TABLET BY MOUTH 3 TIMES A DAY Rx Instructions: TAKE ONE TABLET BY MOUTH 3 TIMES A DAY Referrals Follow up/Referrals: Provider,Referral, MD [Primary Care Provider] - See instructions Activity Restrictions/Add. Instructions Additional Instructions/Restrictions: Follow-up with your family doctor and pain clinic for control of chronic pain. Call your family doctor to establish care for this visit to the emergency department and schedule follow-up within 48 hours to ensure improvement. If you have any worsening of your condition or any other concerning signs or symptoms, return to the emergency department or your primary care doctor for further evaluation. Take Tylenol 1000 mg every 6 hours (4 times daily) and ibuprofen 400 mg every 6 hours (4 times daily) as needed with food and water to prevent GI upset and kidney damage. Clinical Impressions Clinical Impression: Back pain Qualifiers: Back pain location: thoracic back pain Chronicity: chronic Back pain laterality: midline Qualified Code(s): M54.6 - Pain in thoracic spine Acute shoulder pain Qualifiers: Laterality: left Qualified Code(s): M25.512 - Pain in left shoulder Fall Qualifiers: Encounter type: initial encounter Qualified Code(s): W19.XXXA - Unspecified fall, initial encounter Discharge ED Provider: Boni Alcantara General Adult HPI General Chief complaint: Fall Stated complaint: Fall Time Seen by Provider: 09/01/23 07:26 Mode of Arrival: EMS Source of Information: Patient Limitations: No Limitations Description of Symptoms (Recalled from ER Triage Doc. by RN): Patient states she was at home and she fell backwards and hit her left side. States she did not hit her head and no LOC. Complaints of left shoulder, neck and back pain. History of Present Illness HPI narrative: 52-year-old female with history of chronic back pain, chronic back pain, chronic shoulder pain, fibromyalgia, chronic opiate dependence presenting with fall. Patient states that just before this visit, she was walking in her house my l egs just gave out from under me. States no urinary or bladder dysfunction, no saddle anesthesia. Landed on her buttocks/back and hit her head. Having midline C, T spine pain. Called EMS to come to the emergency department. Notably, patient has been following with her family doctor in order to try to have chronic pain medications prescribed. Patient has been missing appointments with her primary care doctor, so chronic opiates and controlled substances have not been prescribed, last appointment was 08/09/2023. In family doctor's note, patient also has not followed up with pain clinic, or provided necessary toxicologic screening in order to have controlled substances managed. Related Data Previous Rx's Medication Instructions Recorded atorvastatin 10 mg tablet 10 mg PO DAILY Cholesterol #90 tabs 08/09/23 cholecalciferol (vitamin D3) 50 50 mcg PO DAILY #90 caps 08/09/23 mcg (2,000 unit) capsule (Vitamin D3) ergocalciferol (vitamin D2) 1,250 1,250 mcg PO WEEKLY #90 caps 08/09/23 mcg (50,000 unit) capsule ketotifen fumarate 0.025 % (0.035 1 drp ophthalmic (eye) BID #5 mL 08/09/23 %) eye drops (Allergy Eye (ketotifen)) levothyroxine 25 mcg tablet See Rx Instructions .Route 08/09/23 .COMPLEX #90 tabs omeprazole 40 mg capsule,delayed See Rx Instructions .Route 08/09/23 release .COMPLEX #90 caps benzonatate 150 mg capsule 150 mg PO TID PRN cough #30 caps 08/10/23 promethazine 12.5 mg tablet See Rx Instructions .Route 08/22/23 .COMPLEX #20 tabs fluticasone propionate 50 See Rx Instructions .Route 08/29/23 mcg/actuation nasal .COMPLEX allergies #16 grams spray,suspension hydrocortisone-aloe vera 1 % 1 applic topical BID irriation 08/29/23 topical cream (Anti-Itch #28.4 grams (hydrocortisone) with Aloe) loratadine 10 mg tablet See Rx Instructions .Route 08/29/23 .COMPLEX #90 tabs Allergies Allergy/AdvReac Type Severity Reaction Status Date / Time codeine [CODEINE] Allergy Unknown VOMITING Verified 08/09/23 09:10 erythromycin base Allergy Unknown ITCHING/HIV Verified 08/09/23 09:10 [ERYTHROMYCIN BASE] ES Penicillins [PENICILLINS] Allergy Unknown VOMITING Verified 08/09/23 09:10 [facility] Disclaimer: The information contained in this section may have been updated after the patient was seen, as this information can be updated by other users. Medical History (Updated 09/01/23 @ 09:22 by Boni Alcantara MD) Abnormal electrocardiography Back pain Bilateral pendulous breasts Chest tightness Colon cancer COPD (chronic obstructive pulmonary disease) Daytime somnolence Dyspnea Encounter for pre-operative cardiovascular clearance Feeling of incomplete bladder emptying History of ovarian cancer Hyperlipidemia LGSIL Pap smear of vagina Lumbar disc disease with radiculopathy Rheumatic arteritis Surgical History History of cholecystectomy History of cranial surgery History of hysterectomy Hx of neck surgery Family History (Updated 07/06/23 @ 16:21 by NICK Still) Other Anemia Asthma Cancer Coronary artery disease Diabetes Family history of bronchitis Family history of myocardial infarction Family history of stroke Heart attack Hyperlipidemia Hypertension Kidney disease Stroke Thyroid disorder Social History (Updated 07/06/23 @ 16:18 by NICK Still) Smoking Status: Former smoker tobacco type: smokeless tobacco second hand exposure: No alcohol intake: never substance use type: denies use current occupational status: disabled Travel in the last 8 weeks: None household members: none housing: house lives independently: Yes marital status: single number of children: 3 education level: high school current occupational exposures/hazards: No caffeine: No special christopher needs: No agree to transfusion: No do you feel safe at home: Yes victim of physical abuse: No victim of emotional abuse: No victim of sexual abuse: No would you like helpful sources: No ROS Obtained: Yes All systems reviewed & no additional complaints except as documented Physical Exam General General appearance: alert and in no apparent distress Head Head exam: atraumatic and normocephalic Eye Eye exam: Present normal appearance, PERRL and EOMI ENT ENT exam: Present mucous membranes moist Neck Neck exam: Present normal inspection, full ROM and trachea midline Respiratory Respiratory exam: Absent respiratory distress, wheezes, stridor, accessory muscle use or prolonged expiratory phase Cardiovascular Cardiovascular exam: Present normal rhythm Abdominal Exam Abdominal exam: Present soft; Absent distention, tenderness, guarding, rebound or rigidity Extremities Exam Extremities exam: Absent edema Neurological Exam Neurological exam: Present alert, oriented X3, CN II-XII intact and normal gait; Absent motor sensory deficit Skin Skin exam: Present warm and dry; Absent diaphoresis or erythema Medical Decision Making Medical Records Medical records reviewed: Yes I reviewed the patient's medical records. [place] Inquiry Pt receiving controlled substance: No [place] was queried for this patient: No Vital Signs: 09/01/23 07:20 09/01/23 08:32 Temperature 97.8 F Temperature Source Oral Pulse Rate 91 H Pulse Rate [Right] 102 H Respiratory Rate 20 Blood Pressure 170/97 H Blood Pressure [Right Arm] 154/99 H Blood Pressure Mean [Right Arm] 117 Blood Pressure Source [Right Arm] Automatic Cuff 02 Sat by Pulse Oximetry 99 100 Oxygen Delivery Method Room Air Room Air Orders (Tests/Meds): ED MEDICATIONS Discontinued Medications Generic Name Dose Route Start Last Admin Trade Name Freq PRN Reason Stop Dose Admin Acetaminophen 1,000 mg 09/01/23 07:26 09/01/23 07:40 Acetaminophen 500mg Tab PO 09/01/23 07:27 1,000 mg ONCE ONE Administration Ibuprofen 800 mg 09/01/23 07:30 09/01/23 07:40 Ibuprofen 800 Mg Tablet PO 09/01/23 07:31 800 mg ONCE ONE Administration ORDERS Category Date Time Status CT head/brain wo con Stat Cat Scan 09/01/23 07:[address] lumbar spine wo con Stat Cat Scan 09/01/23 07:[address] thoracic spine wo con Stat Cat Scan 09/01/23 07:26 Completed Cervical spine XR 2 views [XR cervical spine 2V] Stat Exams 09/01/23 07:26 Completed Chest XR -- portable [XR chest portable] Stat Exams 09/01/23 07:26 Completed Hip XR left minimum 2 views [XR hip LT 2-3V w/pelvis] Exams 09/01/23 07:26 Completed Stat Shoulder XR left minimum 2 views [XR shoulder LT min 2V Exams 09/01/23 07:26 Completed ] Stat Medical Decision Narrative: 52-year-old female with history of chronic back pain, chronic back pain, chronic shoulder pain, fibromyalgia, chronic opiate dependence presenting with fall. P atient states that just before this visit, she was walking in her house my legs just gave out from under me. States no urinary or bladder dysfunction, no saddle anesthesia. Landed on her buttocks/back and hit her head. Having midline C, T spine pain. Called EMS to come to the emergency department. Notably, patient has been following with her family doctor in order to try to have chronic pain medications prescribed. Patient has been missing appointments with her primary care doctor, so chronic opiates and controlled substances have not been prescribed, last appointment was 08/09/2023. In family doctor's note, patient also has not followed up with pain clinic, or provided necessary toxicologic screening in order to have controlled substances managed. History was obtained via conversation with patient and EMS. On arrival, patient hemodynamically stable, alert, oriented x4, appropriate, GCS 15, moving all extremities spontaneously, pupils equal and reactive to light. Full physical exam performed and significant for well-appearing woman in no acute distress. Patient has midline thoracic and lumbar spinal tenderness. Paraspinal cervical spine tenderness. Patient is reacting to physical exam disproportionate to actual exam findings. Neurovascularly intact. She does have tenderness along her left clavicle and left shoulder as well, she states this is mostly chronic. Differential includes sprain, strain, benign MSK injury, fracture, dislocation, among others. Patient was given Tylenol Motrin p.o. for symptomatic management and correction of underlying abnormalities. Workup independently interpreted and significant for no acute fracture of ribs, left clavicle, left shoulder, hip or pelvis. No cervical spine fracture, T or L-spine fracture. See radiology read for full review of final results. On reevaluation, patient resting baseline bed. Given patient presentation, workup, history, this most likely represents acute on chronic pain in the setting of fall without significant injury. Also, given history, possible pain medication seeking behavior. Because patient at baseline without signs or symptoms of clinical decompensation, deemed appropriate for discharge. Results were relayed to patient who voiced understanding and were agreeable to outpatient management and follow up. At the time of discharge the patient was hemodynamically stable, tolerating PO, and mobilizing appropriately. Critical Care Critical Care Time Critical Care Time: No
[2023-09-01 08:32] VITALS: BP 170/97; PULSE 91; O2SAT 100
[2023-09-01 09:00] VITALS: BP 166/103; PULSE 88; O2SAT 99
--- NOTE | 2023-09-01 09:29 | PC.NURSE ---
I spoke with pts uncle with her permission. He is on his way to garbage pick up man the pt for d/c.
[2023-09-01 09:30] VITALS: BP 167/95; PULSE 92; O2SAT 98
[2023-09-01 10:10] VITALS: BP 159/92; PULSE 98; RESP 18; TEMP 36.6; O2SAT 98
== END 2023-09-01 10:30 | disposition home or self-care (01) ==
PROVIDERS: Emergency Provider Emergency Medicine
DX: M54.6 Pain in thoracic spine (principal); M25.512 Pain in left shoulder; M54.2 Cervicalgia; J44.9 Chronic obstructive pulmonary disease, unspecified; E78.5 Hyperlipidemia, unspecified; Z85.3 Personal history of malignant neoplasm of breast; W19.XXXA Unspecified fall, initial encounter; Z87.891 Personal history of nicotine dependence
CPT/HCPCS: 70450; 71045; 72040; 72128; 72131; 73030; 73502; 99285

== ENCOUNTER 2023-10-13 16:03 | Emergency (ER) | payer MEDICAID, SELFPAY ==
[2023-10-13 16:14] VITALS: BP 173/106; PULSE 91; RESP 18; TEMP 36.5; O2SAT 96; BMI 20.5
--- NOTE | 2023-10-13 16:21 | ED_ITS ---
<Statement entered by Sarah Mason DO - 10/13/23 18:57> I was consulted by the PITA, and we discussed the complexity of the problems being addressed. I approved the treatment and management plan for this patient's care in the emergency department, thus performing a substantive portion of the medical decision making. Sarah Mason DO Discharge Plan Disposition Patient Disposition: Home, Self-Care Condition: Good Prescriptions Prescriptions: No Action levothyroxine 25 mcg tablet See Rx Instructions .ROUTE .COMPLEX Qty: 90 2RF Dose Instruction: TAKE ONE TABLET BY MOUTH ONCE A DAY FOR THYROID Rx Instructions: TAKE ONE TABLET BY MOUTH ONCE A DAY FOR THYROID omeprazole 40 mg capsule,delayed release(DR/EC) See Rx Instructions .ROUTE .COMPLEX Qty: 90 2RF Dose Instruction: TAKE ONE CAPSULE BY MOUTH ONCE A DAY FOR GERD Rx Instructions: TAKE ONE CAPSULE BY MOUTH ONCE A DAY FOR GERD cholecalciferol (vitamin D3) [Vitamin D3] 50 mcg (2,000 unit) capsule 50 mcg PO DAILY Qty: 90 2RF ergocalciferol (vitamin D2) 1,250 mcg (50,000 unit) capsule 1,250 mcg PO WEEKLY Qty: 90 2RF cephalexin 500 mg capsule PO hydroxyzine HCl 25 mg tablet PO benzonatate 100 mg capsule PO duloxetine 30 mg capsule,delayed release(DR/EC) PO loratadine 10 mg tablet See Rx Instructions .ROUTE .COMPLEX Qty: 90 0RF Dose Instruction: TAKE ONE TABLET BY MOUTH ONCE A DAY Rx Instructions: TAKE ONE TABLET BY MOUTH ONCE A DAY ketotifen fumarate [Allergy Eye (ketotifen)] 0.025 % (0.035 %) drops 1 drp ophthalmic (eye) BID Qty: 5 1RF Rx Instructions: administer at least 8 hours apart hydrocortisone-aloe vera [Anti-Itch(hydrocortisone)-Aloe] 1 % cream 1 applic topical BID Qty: 28.4 0RF fluticasone propionate 50 mcg/actuation spray,suspension See Rx Instructions .ROUTE .COMPLEX Qty: 16 2RF Rx Instructions: USE 1 SPRAY IN EACH NOSTRIL 2 TIMES A DAY FOR ALLERGIES atorvastatin 10 mg tablet 10 mg PO DAILY Qty: 90 2RF loperamide 2 mg capsule See Rx Instructions .ROUTE .COMPLEX Qty: 20 2RF Dose Instruction: TAKE 1 CAPSULE BY MOUTH EVERY 6 HOURS NEEDED FOR LOOSE STOOL Rx Instructions: TAKE 1 CAPSULE BY MOUTH EVERY 6 HOURS NEEDED FOR LOOSE STOOL promethazine 25 mg tablet See Rx Instructions .ROUTE .COMPLEX Qty: 30 3RF Dose Instruction: TAKE ONE TABLET BY MOUTH 3 TIMES A DAY Rx Instructions: TAKE ONE TABLET BY MOUTH 3 TIMES A DAY acetaminophen [Tylenol Extra Strength] 500 mg tablet 500 mg PO Q6H PRN (Reason: fever or pain) Qty: 30 0RF ibuprofen 600 mg tablet 600 mg PO Q8H PRN (Reason: fever or pain) Qty: 30 0RF Referrals Follow up/Referrals: Provider,Referral, MD [Primary Care Provider] - See instructions Activity Restrictions/Add. Instructions Additional Instructions/Restrictions: Follow-up with general surgery for your complaint of abdominal discomfort and bleeding. We found no evidence of ongoing blood loss today. Follow-up with [facility] for your report of vaginal bleeding as you are already established. We found no evidence of bleeding today. Clinical Impressions Clinical Impression: BRBPR (bright red blood per rectum), Vaginal bleeding Alcohol intoxication Qualifiers: Complication of substance-induced condition: uncomplicated Qualified Code(s): F 10.920 - Alcohol use, unspecified with intoxication, uncomplicated Discharge ED Provider: Sarah Mason General Adult HPI General Chief complaint: Vaginal Bleeding Stated complaint: rectal bleeding. diff swallowing Time Seen by Provider: 10/13/23 16:09 Mode of Arrival: Ambulatory Source of Information: Patient Limitations: No Limitations Description of Symptoms (Recalled from ER Triage Doc. by RN): rectal and vaginal bleeding History of Present Illness HPI narrative: Patient presents with a reported history of both vaginal and rectal bleeding. Patient states that she has been bleeding vaginally for 5 days and also been bleeding rectally for 5 days. Patient also reports abdominal pain that is not new and has been persistent for years and has not changed with the symptoms. Patient cannot elucidate as to why she did not seek care earlier nor what changes today to make her seek care. Patient is a very difficult and confusing historian and cannot tell a coherent set of sequential events relating to her bleeding. Patient currently denies chest pain shortness of breath fever chills hemoptysis hematochezia melena nausea vomiting. Patient also reports that she has loose stool but she has some chronically that she takes Imodium for. Related Data Home Medications Medication Instructions Recorded Confirmed benzonatate 100 mg capsule mg PO 09/20/23 09/20/23 cephalexin 500 mg capsule mg PO 09/20/23 09/20/23 duloxetine 30 mg capsule,delayed mg PO 09/20/23 09/20/23 release hydroxyzine HCl 25 mg tablet mg PO 09/20/23 09/20/23 Previous Rx's Medication Instructions Recorded cholecalciferol (vitamin D3) 50 50 mcg PO DAILY #90 caps 08/09/23 mcg (2,000 unit) capsule (Vitamin D3) ergocalciferol (vitamin D2) 1,250 1,250 mcg PO WEEKLY #90 caps 08/09/23 mcg (50,000 unit) capsule levothyroxine 25 mcg tablet See Rx Instructions .Route 08/09/23 .COMPLEX #90 tabs omeprazole 40 mg capsule,delayed See Rx Instructions .Route 08/09/23 release .COMPLEX #90 caps loratadine 10 mg tablet See Rx Instructions .Route 08/29/23 .COMPLEX #90 tabs atorvastatin 10 mg tablet 10 mg PO DAILY Cholesterol #90 tabs 09/06/23 fluticasone propionate 50 See Rx Instructions .Route 09/06/23 mcg/actuation nasal .COMPLEX allergies #16 grams spray,suspension hydrocortisone-aloe vera 1 % 1 applic topical BID irriation 09/06/23 topical cream (Anti-Itch #28.4 grams (hydrocortisone) with Aloe) ketotifen fumarate 0.025 % (0.035 1 drp ophthalmic (eye) BID #5 mL 09/06/23 %) eye drops (Allergy Eye (ketotifen)) loperamide 2 mg capsule See Rx Instructions .Route 10/03/23 .COMPLEX #20 caps promethazine 25 mg tablet See Rx Instructions .Route 10/05/23 .COMPLEX #30 tabs acetaminophen 500 mg tablet 500 mg PO Q6H PRN fever or pain 10/10/23 (Tylenol Extra Strength) #30 tabs ibuprofen 600 mg tablet 600 mg PO Q8H PRN fever or pain 10/10/23 #30 tabs Allergies Allergy/AdvReac Type Severity Reaction Status Date / Time codeine [CODEINE] Allergy Unknown VOMITING Verified 08/09/23 09:10 erythromycin base Allergy Unknown ITCHING/HIV Verified 08/09/23 09:10 [ERYTHROMYCIN BASE] ES Penicillins [PENICILLINS] Allergy Unknown VOMITING Verified 08/09/23 09:10 [facility] Disclaimer: The information contained in this section may have been updated after the patient was seen, as this information can be updated by other users. Medical History (Updated 10/13/23 @ 18:29 by KIARRA Morales) Rheumatic arteritis COPD (chronic obstructive pulmonary disease) Hyperlipidemia History of ovarian cancer Colon cancer LGSIL Pap smear of vagina Back pain Bilateral pendulous breasts Feeling of incomplete bladder emptying Encounter for pre-operative cardiovascular clearance Chest tightness Daytime somnolence Abnormal electrocardiography Dyspnea Lumbar disc disease with radiculopathy Surgical History (Updated 09/25/23 @ 06:14 by Leno Gaspar APRN) History of cranial surgery Hx of neck surgery History of hysterectomy History of cholecystectomy Family History (Updated 07/06/23 @ 16:21 by NICK Still) Other Anemia Asthma Cancer Coronary artery disease Diabetes Family history of bronchitis Family history of myocardial infarction Family history of stroke Heart attack Hyperlipidemia Hypertension Kidney disease Stroke Thyroid disorder Social History (Updated 07/06/23 @ 16:18 by NICK Still) Smoking Status: Never smoker second hand exposure: No alcohol intake: never substance use type: denies use current occupational status: disabled Travel in the last 8 weeks: None household members: none housing: house lives independently: Yes marital status: single number of children: 3 education level: high school current occupational exposures/hazards: No caffeine: No special christopher needs: No agree to transfusion: No do you feel safe at home: Yes victim of physical abuse: No victim of emotional abuse: No victim of sexual abuse: No would you like helpful sources: No ROS Obtained: Yes Systems reviewed as appropriate & no additional complaints except as documented Physical Exam General General appearance: alert, in no apparent distress and appears intoxicated Head Head exam: atraumatic and normal inspection Eye Eye exam: Present normal appearance, PERRL and EOMI ENT ENT exam: Present normal exam, normal oropharynx, mucous membranes moist and other (Patient has slurred speech) Neck Neck exam: Present normal inspection, full ROM and trachea midline; Absent lymphadenopathy Chest Chest inspection: Present normal inspection and symmetric chest wall rise Respiratory Respiratory exam: Present normal lung sounds bilaterally; Absent respiratory distress Cardiovascular Cardiovascular exam: Present regular rate, normal rhythm and normal heart sounds Abdominal Exam Abdominal exam: Present soft, tenderness (Patient reports subjective diffuse tenderness to palpation out of proportion to exam however abdominal exam is benign) and normal bowel sounds; Absent guarding, rebound or rigidity External exam: Present normal external exam and other (No stigmata of bleeding at the rectum no evidence of external thrombosed hemorrhoids and digital exam reveals no palpable masses with no noted blood on exam in the rectal vault); Absent erythema, tenderness or lesions Speculum exam: Present normal speculum exam and other (Patient is status post hysterectomy and cuff appears intact and normal with no stigmata of bleeding anywhere in the vaginal vault); Absent erythema, vaginal discharge, vaginal bleeding, foreign body or laceration Extremities Exam Extremities exam: Present normal inspection and full ROM Back Exam Back exam: Present normal inspection and full ROM; Absent tenderness, CVA tenderness (R) or CVA tenderness (L) Neurological Exam Neurological exam: Present CN II-XII intact and other (Patient appears intoxicated has slurred speech and cannot give a coherent story with no focal neurologic deficits noted) Psychiatric Psychiatric exam: Present other (Patient appears intoxicated however is awake but cannot tell a coherent story but also does not appear to be in distress) Skin Skin exam: Present warm, dry and normal color Medical Decision Making Medical Records Medical records reviewed: Yes I reviewed the patient's medical records. [place] Inquiry Pt receiving controlled substance: No Vital Signs: 10/13/23 16:14 10/13/23 17:59 10/13/23 18:00 Temperature 97.7 F Temperature Source Oral Pulse Rate 86 86 Pulse Rate [Right Radial] 91 H Respiratory Rate 18 Blood Pressure 165/108 H 159/96 H Blood Pressure [Right Arm] 173/106 H Blood Pressure Mean 142 133 Blood Pressure Mean [Right Arm] 128 Blood Pressure Source Blood Pressure Position 02 Sat by Pulse Oximetry 96 100 100 Oxygen Delivery Method Room Air 10/13/23 18:48 Temperature 97.6 F Temperature Source Oral Pulse Rate 89 Pulse Rate [Right Radial] Respiratory Rate 16 Blood Pressure 160/94 H Blood Pressure [Right Arm] Blood Pressure Mean Blood Pressure Mean [Right Arm] Blood Pressure Source Automatic Cuff Blood Pressure Position Sitting 02 Sat by Pulse Oximetry Oxygen Delivery Method Room Air Lab Data Lab results reviewed: Yes I reviewed the patient's lab results. Lab Results 10/13/23 16:15: Urine Opiates Screen Negative, Urine Methadone Screen Negative, Ur Barbituates Screen Negative, Ur Phencyclidine Scrn Negative, Ur Amphetamines Screen Negative, U Benzodiazepines Scrn Negative, Urine Cocaine Screen Negative, U Marijuana (THC) Screen Negative 10/13/23 16:50: WBC 7.5, RBC 3.88 L, Hgb 12.6, Hct 38.4, MCV 99.0, MCH 32.4 H, MCHC 32.7, RDW 13.3, Plt Count 472 H, MPV 7.6, Neut % (Auto) 53.0, Lymph % (Auto) 40.8, Christian % (Auto) 3.1, Eos % (Auto) 0.7, Baso % (Auto) 2.5 H, Neut # (Auto) 4.0, Lymph # (Auto) 3.1, Christian # (Auto) 0.2, Eos # (Auto) 0.1, Baso # (Auto) 0.2, PT 10.3, INR 0.95, Sodium 130 L, Potassium 4.7, Chloride 96 L, Carbon Dioxide 22, Anion Gap 16.7 H, BUN 8, Creatinine 0.50 L, Estimated Creat Clear 117, Estimated GFR 130, Est GFR ( Amer) 157, Glucose 110 H, Calcium 9.4, Magnesium 1.9, Total Bilirubin 0.3, AST 54 H, ALT 19, Alkaline Phosphatase 118, Total Protein 7.8, Albumin 4.6, Globulin 3.2, Albumin/Globulin Ratio 1.4, P lasma/Serum Alcohol 199 H 10/13/23 17:14: Urine Color Yellow, Urine Appearance Clear, Urine pH 5.5, Ur Specific [place] <= 1.005, Urine Protein Negative, Urine Glucose (UA) Negative, Urine Ketones Negative, Urine Blood Negative, Urine Nitrate Negative, Urine Bilirubin Negative, Urine Urobilinogen 0.2, Ur Leukocyte Esterase Negative, Urine RBC None, Urine WBC Occasional, Ur Squamous Epith Cells Occasional, Urine Bacteria 1+ 10/13/23 18:00: Stool Occult Blood Negative 10/13/23 16:50 10/13/23 16:50 Orders (Tests/Meds): ED MEDICATIONS Discontinued Medications Generic Name Dose Route Start Last Admin Trade Name Freq PRN Reason Stop Dose Admin Acetaminophen 1,000 mg 10/13/23 16:43 10/13/23 17:42 Acetaminophen 500mg Tab PO 10/13/23 16:44 1,000 mg ONCE ONE Administration Ketorolac Tromethamine 15 mg 10/13/23 16:43 10/13/23 17:42 Ketorolac 30mg/Ml Vial IV 10/13/23 16:44 15 mg ONCE ONE Administration ORDERS Category Date Time Status CBC w/Auto Diff [Complete Blood Count Auto Diff] Stat Lab 10/13/23 16:50 Completed CMP [Comprehensive Metabolic Panel] Stat Lab 10/13/23 16:50 Completed Ethyl Alcohol Stat Lab 10/13/23 16:50 Completed INR [Prothrombin Time INR] Stat Lab 10/13/23 16:50 Completed Magnesium Stat Lab 10/13/23 16:50 Completed Occult Blood,Stool Stat Lab 10/13/23 18:00 Completed UA [Urinalysis and Microscopic] Stat Lab 10/13/23 17:14 Completed UDS [Drug Screen,Urine] Stat Lab 10/13/23 16:15 Completed Medical Decision Narrative: In summary patient is a 52-year-old female who presents to the emergency department for evaluation of reported history of vaginal and rectal bleeding for 5 days. Patient is hemodynamically stable upon arrival, febrile. Physical exam is remarkable for what appears to be intoxication, substance unknown. Patient is awake and interactive but has slurred speech and cannot tell a coherent story. Exam is significant for moderate tenderness to palpation however her overall abdominal exam is benign with normal bowel sounds. Speculum exam reveals a normal post hysterectomy vaginal vault and rectal exam revealed no gross blood.. Differential diagnosis includes vaginal tear laceration, GI bleed, hemorrhoids, malingering, intoxication by illicit substance. Initial workup will be conducted with hematologic labs urine drug screen UA. Initial interventions include Tylenol and Toradol. I considered consulting both GI and [facility] for any positive findings that we uncovered as patient is already established with them on an outpatient basis initial workup reviewed by me shows a serum alcohol level of 200, normal hemoglobin hematocrit normal INR and the remainder of her hematologic labs are nonactionable. Urinalysis was bland.. Upon repeat evaluation has had no other episodes while in the emergency department of any hemorrhage.. Given this patient is advised to follow-up with general surgery with whom she is already established as well as [facility] whom she is already established. As patient is legally impaired she can depart the emergency department if she has a ride otherwise she has to stay for sobriety. Critical Care Critical Care Time Critical Care Time: No
[2023-10-13 17:16] LABS: Basophils # 0.2 K/mm3 (0-0.2); Basophils % 2.5 % (0.1-2.0); Eosinophils # 0.1 K/mm3 (0.0-0.4); Eosinophils % 0.7 % (0.1-12.0); Hematocrit 38.4 % (37.0-47.0); Hemoglobin 12.6 g/dL (12.2-16.2); Lymphocytes # 3.1 K/mm3 (0.7-4.5); Lymphocytes % 40.8 % (10-50); Mean Corpuscular HGB Conc 32.7 g/dL (31.8-35.4); Mean Corpuscular Hemoglobin 32.4 pg (27.0-31.2); Mean Platelet Volume 7.6 fl (7.4-10.4); Monocytes # 0.2 K/mm3 (0.1-1.0); Monocytes % 3.1 % (1.7-9.3); Platelet Count 472 K/mm3 (142-424); Red Blood Count 3.88 M/mm3 (4.20-5.40); Red Cell Distribution Width 13.3 % (11.5-17.5); White Blood Count 7.5 K/mm3 (4.8-10.8)
[2023-10-13 17:26] LABS: Chloride 96 mmol/L (98-107)
[2023-10-13 17:27] LABS: Potassium 4.7 mmoL/L (3.5-5.1); Sodium 130 mmol/L (136-145)
[2023-10-13 17:29] LABS: Alanine Aminotransferase 19 U/L (12-78); Alkaline Phosphatase 118 U/L (38-126); Aspartate Amino Transferase 54 U/L (14-36); Bilirubin,Total 0.3 mg/dl (0.2-1.3); Blood Urea Nitrogen 8 mg/dl (7-17); Creatinine Clearance Estimated 117 mL/min (50-200); Estimated Glomerular Filt Rate 130 ml/min (>60); GFR (African American) 157 ML/MIN (>60)
[2023-10-13 17:30] LABS: Albumin Level 4.6 g/dl (3.5-5.0); Albumin/Globulin Ratio 1.4 (1.1-1.8); Anion Gap 16.7 mEq/L (5-15); Calcium 9.4 mg/dl (8.4-10.2); Carbon Dioxide 22 mmol/L (22.0-30.0); Globulin 3.2 g/dL (1.3-3.2); Glucose 110 mg/dl (74-100); INR 0.95 (0.9-1.1); Magnesium 1.9 mg/dl (1.6-2.3); Prothrombin Time 10.3 seconds (10.1-12.5); Total Protein,Serum 7.8 g/dl (6.3-8.2)
[2023-10-13] MEDS: ACETAMINOPHEN 500MG TAB 1000 MG PO (17:42)
[2023-10-13] MEDS: KETOROLAC 30MG/ML VIAL 15 MG IV (17:42)
[2023-10-13 17:48] LABS: Microscopic, Urine URINE MICROSCOPIC (MICROSCOPIC)
[2023-10-13 17:52] LABS: Ethyl Alcohol 199 mg/dl (0-10)
[2023-10-13 17:53] LABS: Appearance,Urine CLEAR (Clear); Bilirubin,Urine Negative (Negative); Blood, Urine Negative (Negative); Color,Urine YELLOW (Yellow); Glucose,Urine (UA) Negative (Negative); Ketones,Urine Negative (Negative); Leukocyte Esterase,Urine Negative (Negative); Nitrate,Urine Negative (Negative); PH,Urine 5.5 (5.0-8.5); Protein,Urine Negative (Negative); Specific Gravity, Urine <= 1.005 (1.005-1.030); Urobilinogen,Urine 0.2 EU/dl (0.2)
[2023-10-13 17:59] VITALS: BP 165/108; PULSE 86; O2SAT 100
[2023-10-13 18:00] VITALS: BP 159/96; PULSE 86; O2SAT 100
[2023-10-13 18:03] LABS: Bacteria,Urine 1+ /lpf; Squamous Epithelial Cell,Urine Occasional #/hpf (0-5); WBC,Urine Occasional #/hpf (0-3)
[2023-10-13 18:30] LABS: Amphetamine/Metha Screen,Urine Negative ng/ml (<1000)
[2023-10-13 18:31] LABS: Barbiturates Screen,Urine Negative ng/ml (<200)
[2023-10-13 18:32] LABS: Benzodiazepines Screen,Urine Negative ng/ml (<200); Cannabinoid Screen,Urine Negative ng/ml (<50)
[2023-10-13 18:33] LABS: Cocaine Screen,Urine Negative ng/ml (<300); Methadone Screen,Urine Negative ng/ml (<300)
[2023-10-13 18:34] LABS: Opiate Screen,Urine Negative ng/ml (<300)
[2023-10-13 18:35] LABS: Phencyclidine Screen,Urine Negative ng/ml (<25)
[2023-10-13 18:43] LABS: Occult Blood,Stool Negative (Negative)
[2023-10-13 18:48] VITALS: BP 160/94; PULSE 89; RESP 16; TEMP 36.4; O2SAT 99
== END 2023-10-13 18:49 | disposition home or self-care (01) ==
PROVIDERS: Physician Assistant; Emergency Provider Emergency Medicine
DX: K62.5 Hemorrhage of anus and rectum (principal); N93.9 Abnormal uterine and vaginal bleeding, unspecified; F10.920 Alcohol use, unspecified with intoxication, uncomplicated; R10.9 Unspecified abdominal pain; I77.6 Arteritis, unspecified; J44.9 Chronic obstructive pulmonary disease, unspecified; E78.5 Hyperlipidemia, unspecified; Z87.42 Personal history of other diseases of the female genital tract
CPT/HCPCS: 80053; 80307; 81001; 82272; 83735; 85025; 85610; 96374; 99285; G0328

== ENCOUNTER 2024-01-27 12:50 | Emergency (ER) | payer MEDICAID, SELFPAY ==
[2024-01-27 12:50] VITALS: BP 135/103; PULSE 96; RESP 20; TEMP 36.7; O2SAT 94; BMI 19.5
[2024-01-27 13:00] VITALS: BP 141/72; PULSE 94; O2SAT 91
--- NOTE | 2024-01-27 14:05 | PC.NURSE ---
Dr. Toney at [facility] for pt eval
--- NOTE | 2024-01-27 14:09 | XR_ITS ---
FINAL REPORT CLINICAL HISTORY: dyspnea COMPARISON: 09/01/2023 FINDINGS: SINGLE-VIEW CHEST The heart size is normal. The mediastinum is normal. The lungs are clear. There is no pneumothorax. IMPRESSION: No acute cardiopulmonary process. Reviewed, Interpreted and Dictated by Oswaldo Barrett III, MD Transcribed by Janice Alvarado Authenticated and [facility]
--- NOTE | 2024-01-27 14:11 | ED_ITS ---
Discharge Plan Disposition Patient Disposition: Home, Self-Care Prescriptions Prescriptions: New albuterol sulfate 90 mcg/actuation HFA aerosol inhaler 4 inh inhalation Q4H PRN (Reason: shortness of breath or wheezing) Qty: 8.5 0RF Rx Instructions: 4 puffs every 4 hours for 48 hours then as needed for shortness of breath or wheezing following benzonatate 100 mg capsule 100 mg PO TID PRN (Reason: cough) 5 Days Qty: 20 0RF prednisone 50 mg tablet 50 mg PO DAILY 5 Days Qty: 5 0RF Rx Instructions: Please begin 1 day after ED visit doxycycline hyclate 100 mg capsule 100 mg PO BID 7 Days Qty: 14 0RF No Action omeprazole 40 mg capsule,delayed release(DR/EC) See Rx Instructions .ROUTE .COMPLEX Qty: 90 2RF Dose Instruction: TAKE ONE CAPSULE BY MOUTH ONCE A DAY FOR GERD Rx Instructions: TAKE ONE CAPSULE BY MOUTH ONCE A DAY FOR GERD cholecalciferol (vitamin D3) [Vitamin D3] 50 mcg (2,000 unit) capsule 50 mcg PO DAILY Qty: 90 2RF ergocalciferol (vitamin D2) 1,250 mcg (50,000 unit) capsule 1,250 mcg PO WEEKLY Qty: 90 2RF cephalexin 500 mg capsule PO hydroxyzine HCl 25 mg tablet PO duloxetine 30 mg capsule,delayed release(DR/EC) PO loratadine 10 mg tablet See Rx Instructions .ROUTE .COMPLEX Qty: 90 0RF Dose Instruction: TAKE ONE TABLET BY MOUTH ONCE A DAY Rx Instructions: TAKE ONE TABLET BY MOUTH ONCE A DAY hydrocortisone-aloe vera [Anti-Itch(hydrocortisone)-Aloe] 1 % cream 1 applic topical BID Qty: 28.4 0RF fluticasone propionate 50 mcg/actuation spray,suspension See Rx Instructions .ROUTE .COMPLEX Qty: 16 2RF Rx Instructions: USE 1 SPRAY IN EACH NOSTRIL 2 TIMES A DAY FOR ALLERGIES acetaminophen [Tylenol Extra Strength] 500 mg tablet 500 mg PO Q6H PRN (Reason: fever or pain) Qty: 30 0RF ketotifen fumarate [Allergy Eye (ketotifen)] 0.025 % (0.035 %) drops 1 drp ophthalmic (eye) BID Qty: 5 1RF Rx Instructions: administer at least 8 hours apart atorvastatin 10 mg tablet See Rx Instructions .ROUTE .COMPLEX Qty: 90 1RF Dose Instruction: TAKE ONE TABLET BY MOUTH ONCE A DAY FOR CHOLESTEROL Rx Instructions: TAKE ONE TABLET BY MOUTH ONCE A DAY FOR CHOLESTEROL promethazine 25 mg tablet See Rx Instructions .ROUTE .COMPLEX Qty: 30 3RF Dose Instruction: TAKE ONE TABLET BY MOUTH 3 TIMES A DAY Rx Instructions: TAKE ONE TABLET BY MOUTH 3 TIMES A DAY benzonatate 100 mg capsule See Rx Instructions .ROUTE .COMPLEX Qty: 30 0RF Dose Instruction: TAKE 1 CAPSULE BY MOUTH 3 TIMES A DAY NEEDED FOR COUGH Rx Instructions: TAKE 1 CAPSULE BY MOUTH 3 TIMES A DAY NEEDED FOR COUGH ibuprofen 600 mg tablet See Rx Instructions .ROUTE .COMPLEX Qty: 30 0RF Dose Instruction: TAKE ONE TABLET BY MOUTH EVERY 8 HOURS NEEDED FOR FEVER OR PAIN Rx Instructions: TAKE ONE TABLET BY MOUTH EVERY 8 HOURS NEEDED FOR FEVER OR PAIN loperamide 2 mg capsule See Rx Instructions .ROUTE .COMPLEX Qty: 20 2RF Dose Instruction: TAKE 1 CAPSULE BY MOUTH EVERY 6 HOURS NEEDED FOR LOOSE STOOL Rx Instructions: TAKE 1 CAPSULE BY MOUTH EVERY 6 HOURS NEEDED FOR LOOSE STOOL levothyroxine 25 mcg tablet See Rx Instructions .ROUTE .COMPLEX Qty: 90 1RF Dose Instruction: TAKE ONE TABLET BY MOUTH ONCE A DAY FOR THYROID Rx Instructions: TAKE ONE TABLET BY MOUTH ONCE A DAY FOR THYROID diphenhydramine HCl 25 mg capsule See Rx Instructions .ROUTE .COMPLEX Qty: 20 0RF Dose Instruction: TAKE ONE CAPSULE BY MOUTH EVERY 4 TO 6 HOURS NEEDED FOR ALLERGY SYMPTOMS Rx Instructions: TAKE ONE CAPSULE BY MOUTH EVERY 4 TO 6 HOURS NEEDED FOR ALLERGY SYMPTOMS Referrals Follow up/Referrals: Provider,Referral, MD [Primary Care Provider] - See instructions Activity Restrictions/Add. Instructions Additional Instructions/Restrictions: Your symptoms are consistent with an acute exacerbation of your COPD. No obvious pneumonia. Medication sent to your pharmacy please return with significant worsening of your breathing or other concerns. Clinical Impressions Clinical Impression: Acute exacerbation of chronic obstructive pulmonary disease Discharge ED Provider: Stephen Toney General Adult HPI General Chief complaint: Weakness Stated complaint: N/V Time Seen by Provider: 01/27/24 14:04 Mode of Arrival: EMS Source of Information: Patient and EMS Limitations: No Limitations Description of Symptoms (Recalled from ER Triage Doc. by RN): brought in by [facility], pt states she has been sick for 3 days with N/V/D, epigastirc abdominal pain that is constant rating it 9/10, and weakness, has colon and thyroid cancer, not receiving chemo or radiation currently, goes to tuesday to discuss treatment and get a plan together History of Present Illness HPI narrative: Patient is a 53-year-old female presenting today with cough sputum production wheezing diffuse bodyaches. States she has colon cancer is not on any chemo or radiation at the moment. Unclear as to whether or not this is advanced or localized disease. Denies any pulmonary metastatic disease that she is aware of. States she is only felt bad for the last 48 hours. Took ibuprofen at home without any significant improvement. Related Data Home Medications Medication Instructions Recorded Confirmed cephalexin 500 mg capsule mg PO 09/20/23 09/20/23 duloxetine 30 mg capsule,delayed mg PO 09/20/23 09/20/23 release hydroxyzine HCl 25 mg tablet mg PO 09/20/23 09/20/23 Previous Rx's Medication Instructions Recorded cholecalciferol (vitamin D3) 50 50 mcg PO DAILY #90 caps 08/09/23 mcg (2,000 unit) capsule (Vitamin D3) ergocalciferol (vitamin D2) 1,250 1,250 mcg PO WEEKLY #90 caps 08/09/23 mcg (50,000 unit) capsule omeprazole 40 mg capsule,delayed See Rx Instructions .Route 08/09/23 release .COMPLEX #90 caps loratadine 10 mg tablet See Rx Instructions .Route 08/29/23 .COMPLEX #90 tabs fluticasone propionate 50 See Rx Instructions .Route 09/06/23 mcg/actuation nasal .COMPLEX allergies #16 grams spray,suspension hydrocortisone-aloe vera 1 % 1 applic topical BID irriation 09/06/23 topical cream (Anti-Itch #28.4 grams (hydrocortisone) with Aloe) acetaminophen 500 mg tablet 500 mg PO Q6H PRN fever or pain 10/20/23 (Tylenol Extra Strength) #30 tabs ketotifen fumarate 0.025 % (0.035 1 drp ophthalmic (eye) BID #5 mL 10/20/23 %) eye drops (Allergy Eye (ketotifen)) atorvastatin 10 mg tablet See Rx Instructions .Route 11/28/23 .COMPLEX #90 tabs promethazine 25 mg tablet See Rx Instructions .Route 12/13/23 .COMPLEX #30 tabs benzonatate 100 mg capsule See Rx Instructions .Route 12/26/23 .COMPLEX #30 caps ibuprofen 600 mg tablet See Rx Instructions .Route 01/09/24 .COMPLEX #30 tabs loperamide 2 mg capsule See Rx Instructions .Route 01/10/24 .COMPLEX #20 caps diphenhydramine HCl 25 mg capsule See Rx Instructions .Route 01/25/24 .COMPLEX #20 caps levothyroxine 25 mcg tablet See Rx Instructions .Route 01/25/24 .COMPLEX #90 tabs albuterol sulfate 90 mcg/actuation 4 inh inhalation Q4H PRN shortness 01/27/24 aerosol inhaler of breath or wheezing #8.5 grams benzonatate 100 mg capsule 100 mg PO TID PRN cough 5 days #20 01/27/24 caps doxycycline hyclate 100 mg capsule 100 mg PO BID 7 days #14 caps 01/27/24 prednisone 50 mg tablet 50 mg PO DAILY 5 days #5 tabs 01/27/24 Allergies Allergy/AdvReac Type Severity Reaction Status Date / Time codeine [CODEINE] Allergy Unknown VOMITING Verified 01/27/24 14:27 erythromycin base Allergy Unknown ITCHING/HIV Verified 01/27/24 14:27 [ERYTHROMYCIN BASE] ES Penicillins [PENICILLINS] Allergy Unknown VOMITING Verified 01/27/24 14:27 ibuprofen Allergy Verified 01/27/24 14:27 PFSH PFS Disclaimer: The information contained in this section may have been updated after the patient was seen, as this information can be updated by other users. Medical History (Updated 01/27/24 @ 14:11 by Stephen Toney MD) Rheumatic arteritis COPD (chronic obstructive pulmonary disease) Hyperlipidemia History of ovarian cancer Colon cancer LGSIL Pap smear of vagina Back pain Bilateral pendulous breasts Feeling of incomplete bladder emptying Encounter for pre-operative cardiovascular clearance Chest tightness Daytime somnolence Abnormal electrocardiography Dyspnea Lumbar disc disease with radiculopathy Surgical History (Updated 09/25/23 @ 06:14 by Leno Gaspar APRN) History of cranial surgery Hx of neck surgery History of hysterectomy History of cholecystectomy Family History (Updated 07/06/23 @ 16:21 by NICK Still) Other Anemia Asthma Cancer Coronary artery disease Diabetes Family history of bronchitis Family history of myocardial infarction Family history of stroke Heart attack Hyperlipidemia Hypertension Kidney disease Stroke Thyroid disorder Social History (Updated 07/06/23 @ 16:18 by GABI Still Smoking Status: Never smoker second hand exposure: No alcohol intake: never substance use type: denies use current occupational status: disabled Travel in the last 8 weeks: None household members: none housing: house lives independently: Yes marital status: single number of children: 3 education level: high school current occupational exposures/hazards: No caffeine: No special christopher needs: No agree to transfusion: No do you feel safe at home: Yes victim of physical abuse: No victim of emotional abuse: No victim of sexual abuse: No would you like helpful sources: No ROS Obtained: Yes All systems reviewed & no additional complaints except as documented Physical Exam General General appearance: alert and in no apparent distress Respiratory Respiratory exam: Present other (Actively coughing no wheezing respiratory distress hypoxemia accessory muscle use etc.) Cardiovascular Cardiovascular exam: Present regular rate Neurological Exam Neurological exam: Present alert and oriented X3 Medical Decision Making [place] Inquiry Pt receiving controlled substance: No Vital Signs: 01/27/24 12:50 01/27/24 13:00 01/27/24 14:18 Temperature 98.0 F Temperature Source Oral Pulse Rate 94 H 89 Pulse Rate [Left Radial] 96 H Respiratory Rate 20 Blood Pressure 141/72 H Blood Pressure [Right Arm] 135/103 H Blood Pressure Mean [Right Arm] 113 Blood Pressure Source [Right Arm] Automatic Cuff Blood Pressure Position [Right Arm] Sitting 02 Sat by Pulse Oximetry 94 L 91 L 97 Oxygen Delivery Method Room Air Room Air 01/27/24 15:00 Temperature Temperature Source Pulse Rate 100 H Pulse Rate [Left Radial] Respiratory Rate Blood Pressure 142/72 H Blood Pressure [Right Arm] Blood Pressure Mean [Right Arm] Blood Pressure Source [Right Arm] Blood Pressure Position [Right Arm] 02 Sat by Pulse Oximetry 97 Oxygen Delivery Method Room Air Lab Data Lab results reviewed: Yes I reviewed the patient's lab results. Lab Results 01/27/24 12:52: WBC 7.7, RBC 4.22, Hgb 13.3, Hct 39.2, MCV 92.8, MCH 31.5 H, MCHC 34.0, RDW 14.3, Plt Count 235, MPV 8.8, Neut % (Auto) 63.0, Lymph % (Auto) 30.0, [place] % (Auto) 6.2, Eos % (Auto) 0.4, Baso % (Auto) 0.4, Neut # (Auto) 4.8, Lymph # (Auto) 2.3, [place] # (Auto) 0.5, Eos # (Auto) 0.0, Baso # (Auto) 0.0, S odium 132 L, Potassium 3.4 L, Chloride 98, Carbon Dioxide 24, Anion Gap 13.4, B UN 5 L, Creatinine 0.50 L, Estimated Creat Clear 107, Estimated GFR 130, Est GFR ( Amer) 157, Glucose 112 H, Calcium 9.5, Total Bilirubin 0.8, AST 206 H, ALT 89 H, Alkaline Phosphatase 172 H, Troponin I < 0.01, Total Protein 8.7 H, Albumin 4.8, Globulin 3.9 H, Albumin/Globulin Ratio 1.2 01/27/24 14:13: SARS-CoV-2 (PCR) Not detected, Influenza A Untype (PCR) Not detected, Influenza Type B (PCR) Not detected 01/27/24 12:52 01/27/24 12:52 Orders (Tests/Meds): ED MEDICATIONS Discontinued Medications Generic Name Dose Route Start Last Admin Trade Name Freq PRN Reason Stop Dose Admin Acetaminophen 1,000 mg 01/27/24 14:01/27/24 14:18 Acetaminophen 1,000mg/100ml Vial IV 01/27/24 14:10 1,000 mg ONCE ONE Administration Albuterol/Ipratropium 3 ml 01/27/24 14:09 01/27/24 14:18 Ipratropium/Albuterol 3 Ml Neb IH 01/27/24 14:10 3 ml ONCE ONE Administration Dexamethasone Sodium Phosphate 10 mg 01/27/24 14:01/27/24 14:18 Dexamethasone 4mg/Ml 1ml Vial IV 01/27/24 14:10 10 mg ONCE ONE Administration Lactated Ringer's 1,000 mls @ 999 mls/hr 01/27/24 14:15 01/27/24 14:17 Lactated Ringer's 1000 Ml Bag IV 01/27/24 15:15 999 mls/hr .Q1H1M SHANNAN Administration Magnesium Sulfate 2 gm in 50 mls @ 50 mls/hr 01/27/24 14:09 01/27/24 14:17 Magnesium Sulfate 2gm/50ml Premix IV 01/27/24 15:08 50 mls/hr ONCE ONE Administration Ketorolac Tromethamine 15 mg 01/27/24 14:49 01/27/24 14:53 Ketorolac 30mg/Ml Vial IV 01/27/24 14:50 15 mg ONCE ONE Administration ORDERS Category Date Time Status CXR --portable [XR chest portable] Stat Exams 01/27/24 14:09 Taken CBC w/Auto Diff [Complete Blood Count Auto Diff] Stat Lab 01/27/24 12:52 Completed CMP [Comprehensive Metabolic Panel] Stat Lab 01/27/24 12:52 Completed Rapid PCR Covid and Flu A/B Stat Lab 01/27/24 14:13 Completed Trop I [Troponin I] Stat Lab 01/27/24 12:52 Completed Troponin I Q3H Lab 01/27/24 17:15 Ordered Troponin I Q3H Lab 01/27/24 20:15 Ordered Medical Decision Narrative: 53-year-old history of COPD with here with increased cough sputum production wheezing over the last 48 hours with bodyaches most likely viral syndrome but could be bacterial in nature. Will give nebs steroids magnesium get a chest x- ray administer IV fluids and Tylenol and reassess. Chest x-ray performed to person interpreted shows no acute cardiopulmonary emergency labs otherwise unremarkable other than mildly elevated AST ALT which have been chronically elevated. She will be treated for COPD exacerbation with doxycycline given her penicillin allergy in addition to steroids and breathing treatments at home. Benzonatate is also been prescribed. Patient discharged in stable condition. Critical Care Critical Care Time Critical Care Time: No
[2024-01-27 14:17] LABS: Coronavirus 19, PCR Not Detected (NotDetected); Influenza A, PCR Not Detected (NotDetected); Influenza B, PCR Not Detected (NotDetected)
[2024-01-27] MEDS: MAGNESIUM SULFATE IN WATER 2 GM/50 ML PIGGYBACK IV (14:17)
[2024-01-27] MEDS: LACTATED RINGERS 1000ML 1,000 ML 999 ML IV (14:17)
[2024-01-27 14:18] VITALS: PULSE 89; O2SAT 97
[2024-01-27] MEDS: IPRATROPIUM/ALBUTEROL 3 ML NEB IH (14:18)
[2024-01-27] MEDS: ACETAMINOPHEN 1,000MG/100ML VIAL 1000 MG IV (14:18)
[2024-01-27] MEDS: DEXAMETHASONE 4MG/ML 1ML VIAL 10 MG IV (14:18)
[2024-01-27 14:19] LABS: Chloride 98 mmol/L (98-107); Sodium 132 mmol/L (136-145)
[2024-01-27 14:20] LABS: Potassium 3.4 mmoL/L (3.5-5.1)
[2024-01-27 14:22] LABS: Alanine Aminotransferase 89 U/L (12-78); Albumin Level 4.8 g/dl (3.5-5.0); Albumin/Globulin Ratio 1.2 (1.1-1.8); Alkaline Phosphatase 172 U/L (38-126); Anion Gap 13.4 mEq/L (5-15); Aspartate Amino Transferase 206 U/L (14-36); Bilirubin,Total 0.8 mg/dl (0.2-1.3); Blood Urea Nitrogen 5 mg/dl (7-17); Carbon Dioxide 24 mmol/L (22.0-30.0); Creatinine Clearance Estimated 107 mL/min (50-200); Estimated Glomerular Filt Rate 130 ml/min (>60); GFR (African American) 157 ML/MIN (>60); Globulin 3.9 g/dL (1.3-3.2); Total Protein,Serum 8.7 g/dl (6.3-8.2)
[2024-01-27 14:23] LABS: Calcium 9.5 mg/dl (8.4-10.2); Glucose 112 mg/dl (74-100)
[2024-01-27 14:27] LABS: Basophils % 0.4 % (0.1-2.0); Eosinophils % 0.4 % (0.1-12.0); Hematocrit 39.2 % (37.0-47.0); Hemoglobin 13.3 g/dL (12.2-16.2); Lymphocytes # 2.3 K/mm3 (0.7-4.5); Mean Corpuscular Hemoglobin 31.5 pg (27.0-31.2); Mean Corpuscular Volume 92.8 fl (81-99); Mean Platelet Volume 8.8 fl (7.4-10.4); Monocytes # 0.5 K/mm3 (0.1-1.0); Monocytes % 6.2 % (1.7-9.3); Neutrophils # 4.8 K/mm3 (1.8-7.8); Platelet Count 235 K/mm3 (142-424); Red Blood Count 4.22 M/mm3 (4.20-5.40); Red Cell Distribution Width 14.3 % (11.5-17.5); White Blood Count 7.7 K/mm3 (4.8-10.8)
[2024-01-27 14:43] LABS: Troponin I < 0.01 ng/ml (0.00-0.034)
[2024-01-27] MEDS: KETOROLAC 30MG/ML VIAL 15 MG IV (14:53)
[2024-01-27 15:00] VITALS: BP 142/72; PULSE 100; O2SAT 97
[2024-01-27] MEDS: ONDANSETRON 4MG ODT 4 MG SL (15:55)
[2024-01-27 16:05] VITALS: BP 151/79; PULSE 93; RESP 16; TEMP 36.7; O2SAT 100
== END 2024-01-27 16:06 | disposition home or self-care (01) ==
PROVIDERS: Emergency Provider Student in an Organized Health Care Education/Training Program
DX: J44.1 Chronic obstructive pulmonary disease with (acute) exacerbation (principal); E87.1 Hypo-osmolality and hyponatremia; E87.6 Hypokalemia; C18.9 Malignant neoplasm of colon, unspecified; Z87.891 Personal history of nicotine dependence
CPT/HCPCS: 71045; 80053; 84484; 85025; 87636; 96365; 96375; 99284; J0131; J1100; J1885; J3475; J7120; J7620

== ENCOUNTER 2024-08-28 13:06 | Outpatient (CLI) | payer MEDICAID, SELFPAY ==
--- NOTE | 2024-08-28 13:10 | US_ITS ---
FINAL REPORT TECHNIQUE: Sonographic images of the thyroid were obtained. CLINICAL HISTORY: ENLARGED THYROID COMPARISON: None FINDINGS: THYROID ULTRASOUND The right thyroid gland measures 3.8 x 1.5 x 1.2 cm. The parenchyma is homogeneous. No dominant mass is seen. The left thyroid gland measures 3.6 x 1.4 x 1.2 cm. The parenchyma is homogeneous. No dominant mass is seen. IMPRESSION: No nodules seen. TI-RADS 1. No follow-up recommended per TI-RADS criteria. Reviewed, Interpreted and Dictated by Skip Yañez MD Transcribed by Ibis Bernstein Authenticated and [facility]
== END 2024-08-28 23:59 | disposition home or self-care (01) ==
LOC: RAD 13:07
PROVIDERS: PCP Family Medicine; Visit Provider Family Medicine
DX: E01.0 Iodine-deficiency related diffuse (endemic) goiter (principal)
CPT/HCPCS: 76536

== ENCOUNTER 2024-10-08 16:35 | Emergency (ER) | payer MEDICAID, SELFPAY ==
[2024-10-08 17:30] VITALS: BP 142/93; PULSE 98; RESP 20; TEMP 36.8; O2SAT 98; BMI 21.9
[2024-10-08 18:00] VITALS: BP 132/84; PULSE 90; O2SAT 96
--- NOTE | 2024-10-08 18:20 | PC.NURSE ---
Dr Toney at bedside
[2024-10-08 18:30] VITALS: BP 132/84; PULSE 99; O2SAT 97
--- NOTE | 2024-10-08 18:34 | CT_ITS ---
PROCEDURE INFORMATION: Exam: CT Abdomen And Pelvis Without Contrast Exam date and time: 10/08/2024 9:28 PM Age: 53 years old Clinical indication: Abdominal pain; Additional info: Diffuse abd pain TECHNIQUE: Imaging protocol: Computed tomography of the abdomen and pelvis without contrast. Radiation optimization: All CT scans at this facility use at least one of these dose optimization techniques: automated exposure control; mA and/or kV adjustment per patient size (includes targeted exams where dose is matched to clinical indication); or iterative reconstruction. COMPARISON: CT ABDOMEN PELVIS WO CON 11/05/2022 4:01 PM FINDINGS: Liver: Normal. No mass. Gallbladder and biliary ducts: Surgically absent gallbladder. Pancreas: Normal. No ductal dilation. Spleen: Incidental calcified splenic granulomata. No mass. Adrenal glands: Normal. No mass. Kidneys and ureters: No nephroureterolithiasis. Stomach and bowel: Scattered sigmoid colonic diverticula without pericolonic fat stranding. Nonobstructive pattern. Appendix: No evidence of appendicitis. Intraperitoneal space: Unremarkable. No free air. No significant fluid collection. Vasculature: Unremarkable. No abdominal aortic aneurysm. Lymph nodes: Unremarkable. No enlarged lymph nodes. Urinary bladder: Unremarkable as visualized. Reproductive: Unremarkable as visualized. Bones/joints: Unremarkable. No acute fracture. Soft tissues: Unremarkable. IMPRESSION: 1. No acute findings identified. 2. Sigmoid colonic diverticulosis.
--- NOTE | 2024-10-08 18:34 | CT_ITS ---
PROCEDURE INFORMATION: Exam: CT Chest Without Contrast; Diagnostic Exam date and time: 10/08/2024 9:26 PM Age: 53 years old Clinical indication: Pain; Chest pressure; Additional info: Chest pain/dyspnea TECHNIQUE: Imaging protocol: Diagnostic computed tomography of the chest without contrast. Radiation optimization: All CT scans at this facility use at least one of these dose optimization techniques: automated exposure control; mA and/or kV adjustment per patient size (includes targeted exams where dose is matched to clinical indication); or iterative reconstruction. COMPARISON: CT ABDOMEN PELVIS WO CON 11/05/2022 4:01 PM FINDINGS: Lungs: Unremarkable. No consolidation. No masses. Pleural spaces: Unremarkable. No pneumothorax. No pleural effusion. Heart: Unremarkable. No cardiomegaly. No pericardial effusion. Coronary arteries: No atherosclerotic calcification of coronary arteries. Lymph nodes: Calcified right hilar lymph nodes. No enlarged lymph nodes. Vasculature: Unremarkable. No aortic aneurysm. Bones/joints: Unremarkable. No acute fracture. Soft tissues: Unremarkable. IMPRESSION: No acute findings.
--- NOTE | 2024-10-08 18:36 | ED_ITS ---
Discharge Plan Disposition Patient Disposition: Home, Self-Care Prescriptions Prescriptions: New dicyclomine 20 mg tablet 20 mg PO TID PRN (Reason: abdominal pain or spasm) 7 Days Qty: 21 0RF No Action clonazepam 0.5 mg tablet 0.5 mg PO DAILY hydrocodone-acetaminophen 10-325 mg tablet 1 tab PO DAILY omeprazole 40 mg capsule,delayed release(DR/EC) 40 mg PO DAILY Rx Instructions: TAKE ONE CAPSULE BY MOUTH ONCE A DAY FOR GERD levothyroxine 25 mcg tablet 25 mcg PO DAILY Rx Instructions: TAKE ONE TABLET BY MOUTH ONCE A DAY FOR THYROID benzonatate 100 mg capsule 100 mg PO DAILY Rx Instructions: TAKE 1 CAPSULE BY MOUTH 3 TIMES A DAY NEEDED FOR COUGH promethazine 25 mg tablet 25 mg PO BIDP PRN (Reason: Nausea And Vomiting) Rx Instructions: TAKE ONE TABLET BY MOUTH 3 TIMES A DAY fluticasone propionate 50 mcg/actuation spray,suspension 50 mcg intranasal DAILY Rx Instructions: USE 1 SPRAY IN EACH NOSTRIL 2 TIMES A DAY FOR ALLERGIES loperamide 2 mg capsule 6 mg PO DIRECTED fluticasone propionate 50 mcg/actuation spray,suspension 1 spray INTRANASAL DAILY Referrals Follow up/Referrals: Matthew Mcgovern II, MD [Staff Physician] - See instructions Sridhar Zamora DO [Primary Care Provider] - See instructions Activity Restrictions/Add. Instructions Additional Instructions/Restrictions: No emergent medical condition identified today to explain your chronic abdominal discomfort please follow-up with Dr. Mcgovern as discussed. Clinical Impressions Clinical Impression: Chest pain, Epigastric abdominal pain, Chronic abdominal pain Print Language Print Language: Mongolian Discharge ED Provider: Stephen Toney General Adult HPI General Chief complaint: PAIN Stated complaint: neck back and abdomin pain Time Seen by Provider: 10/08/24 17:51 History of Present Illness HPI narrative: Patient is a 53-year-old female presents today with epigastric abdominal pain chest pain and melena. States of not is been ongoing for many months. She has had numerous gastroenterology interventions in the past and she has had some polyps in the past but no other definitive diagnosis. Claims she was recently in the [facility] for 9 days unclear as to whether or not there is a definitive diagnosis made we are trying to get the records from that at the moment. Patient states her symptoms have only worsened since that time and predominantly the epigastric abdominal pain decreased p.o. intake. Related Data Home Medications ?Medication ?Instructions ?Recorded ?Confirmed clonazepam 0.5 mg tablet 0.5 mg PO DAILY 06/07/24 10/08/24 hydrocodone 10 mg-acetaminophen 1 tab PO DAILY 06/07/24 07/24/24 325 mg tablet benzonatate 100 mg capsule 100 mg PO DAILY 07/24/24 10/08/24 fluticasone propionate 50 50 mcg intranasal DAILY 07/24/24 10/08/24 mcg/actuation nasal spray,suspension levothyroxine 25 mcg tablet 25 mcg PO DAILY 07/24/24 10/08/24 omeprazole 40 mg capsule,delayed 40 mg PO DAILY 07/24/24 10/08/24 release promethazine 25 mg tablet 25 mg PO BIDP PRN Nausea And 07/24/24 10/08/24 Vomiting fluticasone propionate 50 1 spray intranasal DAILY 10/08/24 10/08/24 mcg/actuation nasal spray,suspension loperamide 2 mg capsule 6 mg PO DIRECTED 10/08/24 10/08/24 Previous Rx's ?Medication ?Instructions ?Recorded dicyclomine 20 mg tablet 20 mg PO TID PRN abdominal pain or 10/08/24 spasm 7 days #21 tabs Allergies Allergy/AdvReac Type Severity Reaction Status Date / Time lidocaine Allergy Intermediate Red, Rash, Verified 10/08/24 19:41 Itching codeine (CODEINE) Allergy Unknown VOMITING Verified 10/08/24 19:00 erythromycin base Allergy Unknown ITCHING/HIV Verified 10/08/24 19:00 (ERYTHROMYCIN BASE) ES Penicillins (PENICILLINS) Allergy Unknown VOMITING Verified 10/08/24 19:00 ibuprofen Allergy Hives Verified 10/08/24 19:00 PFSH [facility] Disclaimer: The information contained in this section may have been updated after the patient was seen, as this information can be updated by other users. Medical History Rheumatic arteritis COPD (chronic obstructive pulmonary disease) Hyperlipidemia History of ovarian cancer Colon cancer LGSIL Pap smear of vagina Back pain Bilateral pendulous breasts Feeling of incomplete bladder emptying Encounter for pre-operative cardiovascular clearance Chest tightness Daytime somnolence Abnormal electrocardiography Dyspnea Lumbar disc disease with radiculopathy Surgical History History of cranial surgery Hx of neck surgery cervical History of hysterectomy History of cholecystectomy Family History Other Anemia Asthma Cancer Coronary artery disease Diabetes Family history of bronchitis Family history of myocardial infarction Family history of stroke Heart attack Hyperlipidemia Hypertension Kidney disease Stroke Thyroid disorder Social History Smoking Status: Never smoker second hand exposure: No alcohol intake: current alcohol intake frequency: a few times a week substance use type: denies use current occupational status: disabled Travel in the last 8 weeks: None household members: none housing: house lives independently: Yes marital status: single number of children: 3 education level: high school current occupational exposures/hazards: No caffeine: No special christopher needs: No agree to transfusion: No do you feel safe at home: Yes victim of physical abuse: No victim of emotional abuse: No victim of sexual abuse: No would you like helpful sources: No Have you lived/traveled outside [place] in past 30 days?: No Contact w/someone who lives/traveled outside US past 30 days?: No Exposure to someone with infectious disease in past 14 days?: No Do you have a fever (greater than 100.4 F or 38 C)?: No Have you tested positive for COVID-19: No Exposed to someone with COVID-19 in past 14 days?: No Do you have a sore throat?: No Do you have a cough?: No Do you have any weakness?: No Do you have any diarrhea?: No Are you experiencing any unusual bleeding?: No Do you have any muscle aches/pain?: No Do you have any abdominal pain?: No Are you experiencing loss of taste or smell?: No Other Medical History Have you received the Flu Vaccine for this season: No Have you received the Pneumonia Vaccine: No ROS Obtained: Yes All systems reviewed & no additional complaints except as documented Physical Exam General General appearance: alert Respiratory Respiratory exam: Present normal lung sounds bilaterally Cardiovascular Cardiovascular exam: Present regular rate and normal rhythm Abdominal Exam Abdominal exam: Present soft and tenderness; Absent distention Neurological Exam Neurological exam: Present alert and oriented X3 Medical Decision Making Medical Records Screening: Per USPSTF and CDC recommendations, given the prevalence of disease in our region, it is our hospital?s policy to screen for HIV and viral Hepatitis for all patients aged 18 and over and those with ongoing risk factors. [place] Inquiry Pt receiving controlled substance: No Vital Signs: 10/08/24 17:30 10/08/24 18:00 10/08/24 18:30 Temperature 98.2 F Temperature Source Oral Pulse Rate 90 99 H Pulse Rate [Right] 98 H Respiratory Rate 20 Blood Pressure 132/84 132/84 Blood Pressure [Right Arm] 142/93 H Blood Pressure Mean [Right Arm] 109 Blood Pressure Source [Right Arm] Automatic Cuff 02 Sat by Pulse Oximetry 98 96 97 Oxygen Delivery Method Room Air Room Air Lab Data Lab results reviewed: Yes I reviewed the patient's lab results. Lab Results 10/08/24 18:33: Urine Color Yellow, Urine Appearance Clear, Urine pH 5.5, Ur Specific [place] 1.005, Urine Protein Negative, Urine Glucose (UA) Negative, Urine Ketones Negative, Urine Blood Negative, Urine Nitrate Negative, Urine Bilirubin Negative, Urine Urobilinogen 0.2, Ur Leukocyte Esterase Negative, Urine RBC None, Urine WBC Occasional, Ur Squamous Epith Cells Occasional, Urine Bacteria 1+ 10/08/24 18:45: WBC 6.0, RBC 4.47, Hgb 13.7, Hct 40.7, MCV 91.1, MCH 30.6, MCHC 33.7, RDW 13.2, Plt Count 313, MPV 9.0, Neut % (Auto) 49.6, Lymph % (Auto) 44.4, [place] % (Auto) 4.7, Eos % (Auto) 0.3, Baso % (Auto) 0.7, Neut # (Auto) 3.0, Lymph # (Auto) 2.7, [place] # (Auto) 0.3, Eos # (Auto) 0.0, Baso # (Auto) 0.0, PT 10.2, INR 0.90, APTT 23.9, Sodium 139, Potassium 4.0, Chloride 102, Carbon Dioxide 25, Anion Gap 16.0 H, BUN 6 L, Creatinine 0.60, Estimated Creat Clear 101, Estimated GFR 105, Est GFR ( Amer) 127, Glucose 81, Lactate 1.4, Calcium 10.2, Total Bilirubin 0.6, AST 54 H, ALT 23, Alkaline Phosphatase 111, Troponin I < 0.01, Total Protein 8.8 H, Albumin 5.2 H, Globulin 3.6 H, Albumin/Globulin Ratio 1.4, Lipase 58 10/08/24 21:58: Troponin I < 0.01 10/08/24 18:45 10/08/24 18:45 Orders (Tests/Meds): ED MEDICATIONS Generic Name Dose Route Start Last Admin Trade Name Freq PRN Reason Stop Dose Admin Ketorolac Tromethamine 15 mg 10/08/24 23:17 Ketorolac 30mg/Ml Vial IV 10/08/24 23:18 ONCE ONE Discontinued Medications Generic Name Dose Route Start Last Admin Trade Name Freq PRN Reason Stop Dose Admin Belladonna Alkaloids 60 ml 10/08/24 18:32 10/08/24 19:37 Belladonna Alkaloids 60 Ml Ml PO 10/08/24 18:33 Not Given ONCE ONE Lactated Ringer's 1,000 mls @ 999 mls/hr 10/08/24 18:45 10/08/24 19:24 Lactated Ringer's 1000 Ml Bag IV 10/08/24 19:45 999 mls/hr .Q1H1M SHANNAN Administration Morphine Sulfate 4 mg 10/08/24 18:32 10/08/24 19:25 Morphine 4mg/Ml Syringe IV 10/08/24 18:33 4 mg ONCE ONE Administration Ondansetron HCl 4 mg 10/08/24 18:32 10/08/24 19:25 Ondansetron 4mg/2ml Vial IV 10/08/24 18:33 4 mg ONCE ONE Administration ORDERS Category Date Time Status CT abdomen pelvis wo con Stat Cat Scan 10/08/24 18:[address] chest wo con Stat Cat Scan 10/08/24 18:34 Completed CBC w/Auto Diff [Complete Blood Count Auto Diff] Stat Lab 10/08/24 18:45 Completed CMP [Comprehensive Metabolic Panel] Stat Lab 10/08/24 18:45 Completed Lactic Acid Stat Lab 10/08/24 18:45 Completed Lipase Stat Lab 10/08/24 18:45 Completed PT/PTT Stat Lab 10/08/24 18:45 Completed Trop I [Troponin I] Stat Lab 10/08/24 18:45 Completed Troponin I Q3H Lab 10/08/24 21:58 Completed Troponin I Q3H Lab 10/09/24 00:45 Ordered UA [Urinalysis and Microscopic] Stat Lab 10/08/24 18:33 Completed Medical Decision Narrative: 53-year-old with the above history and physical. She is quite tender in her epigastric region but also complains of chest pain and states has been ongoing for extended period of time associated with melena. Will get a CT of her abdomen pelvis with contrast and a CT PE to look into differential which includes pneumonia pulmonary embolism acute coronary syndrome pancreatitis mesenteric ischemia malignancy etc. Will try to get her discharge summary from [facility] and we will look more extensively into her records as well. She appears to have been seen by numerous securities underwriter in the past without a definitive diagnosis. Will treat her symptomatically as well. I obtained the patient's records from [facility]. She was discharged on September 12, 2024 she was admitted on the . She was admitted at that time with multiple complaints including generalized weakness neck pain dysphagia and epigastric pain she had a CT scan of her abdomen pelvis and soft tissue neck in the were unremarkable. She was seen by gastroenterology they performed an inpatient EGD which showed mild gastritis and possible candidal esophagitis. They felt no further inpatient workup was necessary. She also had a barium swallow which showed mild esophageal dysmotility. Hepatitis panel and TSH were normal GI recommended cyproheptadine duloxetine. She subsequently returned to [facility] emergency department on September 19 complaining again of abdominal pain and neck pain again. She had a CT scan again performed on September 20 of her abdomen pelvis which was unremarkable. When asked further about this she states she could just not get to the emergency of [place] today. CT scans performed which I personally interpreted which shows no intra abdominal or cardiothoracic emergency. Radiology read consistent with this as well. Serial assessments patient is very benign. This all appears to be very chronic in nature. She has been advised to follow-up with Dr. Mcgovern with gastroenterology here at [facility] was prescribed. No further hospitalization or emergent intervention was needed. Critical Care Critical Care Time Critical Care Time: No
--- NOTE | 2024-10-08 18:38 | PC.NURSE ---
Called Medical Records to have them fax over the dischrge records of this pt per Dr Toney.
[2024-10-08 18:42] LABS: Microscopic, Urine URINE MICROSCOPIC (MICROSCOPIC)
--- NOTE | 2024-10-08 18:54 | ECG_ITS ---
APPROVED REPORT Exam: Resting ECG HR:87 bpm ECG Measurements Heart Rate 87 AXES VA 157 P 59 QRSd 88 QRS 66 QT 370 T 69 QTc 415 Conclusion SINUS RHYTHM NORMAL ECG UNCONFIRMED REPORT Electronically signed by : Robsno Toney, 10/08/2024 23:39:14
[2024-10-08 19:04] LABS: Basophils % 0.7 % (0.1-2.0); Eosinophils % 0.3 % (0.1-12.0); Hematocrit 40.7 % (37.0-47.0); Hemoglobin 13.7 g/dL (12.2-16.2); Lymphocytes # 2.7 K/mm3 (0.7-4.5); Lymphocytes % 44.4 % (10-50); Mean Corpuscular HGB Conc 33.7 g/dL (31.8-35.4); Mean Corpuscular Hemoglobin 30.6 pg (27.0-31.2); Mean Corpuscular Volume 91.1 fl (81-99); Monocytes # 0.3 K/mm3 (0.1-1.0); Monocytes % 4.7 % (1.7-9.3); Neutrophils % 49.6 % (37.0-80.0); Platelet Count 313 K/mm3 (142-424); Red Blood Count 4.47 M/mm3 (4.20-5.40); Red Cell Distribution Width 13.2 % (11.5-17.5)
[2024-10-08 19:12] LABS: Activated Partial Thrombo Time 23.9 seconds (22.8-30.6); Prothrombin Time 10.2 seconds (10.1-12.5)
[2024-10-08] MEDS: LACTATED RINGERS 1000ML 1,000 ML 999 ML IV (19:24)
[2024-10-08] MEDS: ONDANSETRON 4MG/2ML VIAL 4 MG IV (19:25)
[2024-10-08] MEDS: MORPHINE 4MG/ML SYRINGE 4 MG IV (19:25)
[2024-10-08 19:28] LABS: Albumin Level 5.2 g/dl (3.5-5.0); Chloride 102 mmol/L (98-107); Sodium 139 mmol/L (136-145)
[2024-10-08 19:31] LABS: Alanine Aminotransferase 23 U/L (12-78); Albumin/Globulin Ratio 1.4 (1.1-1.8); Alkaline Phosphatase 111 U/L (38-126); Aspartate Amino Transferase 54 U/L (14-36); Bilirubin,Total 0.6 mg/dl (0.2-1.3); Blood Urea Nitrogen 6 mg/dl (7-17); Carbon Dioxide 25 mmol/L (22.0-30.0); Creatinine Clearance Estimated 101 mL/min (50-200); Estimated Glomerular Filt Rate 105 ml/min (>60); GFR (African American) 127 ML/MIN (>60); Globulin 3.6 g/dL (1.3-3.2); Lipase 58 U/L (23-300); Total Protein,Serum 8.8 g/dl (6.3-8.2)
[2024-10-08 19:32] LABS: Calcium 10.2 mg/dl (8.4-10.2); Glucose 81 mg/dl (74-100); Lactic Acid 1.4 mmol/L (0.7-2.1)
[2024-10-08 19:44] LABS: Troponin I < 0.01 ng/ml (0.00-0.034)
[2024-10-08 19:57] LABS: Appearance,Urine Clear (Clear); Color,Urine Yellow (Yellow)
[2024-10-08 19:58] LABS: Bilirubin,Urine Negative (Negative); Blood, Urine Negative (Negative); Glucose,Urine (UA) Negative (Negative); Ketones,Urine Negative (Negative); Nitrate,Urine Negative (Negative); PH,Urine 5.5 (5.0-8.5); Protein,Urine Negative (Negative); Specific Gravity, Urine 1.005 (1.005-1.030); Urobilinogen,Urine 0.2 EU/dl (0.2)
[2024-10-08 19:59] LABS: Bacteria,Urine 1+ /lpf; Leukocyte Esterase,Urine Negative (Negative); Squamous Epithelial Cell,Urine Occasional #/hpf (0-5); WBC,Urine Occasional #/hpf (0-3)
[2024-10-08 23:15] LABS: Troponin I < 0.01 ng/ml (0.00-0.034)
[2024-10-08] MEDS: KETOROLAC 30MG/ML VIAL 15 MG IV (23:19)
[2024-10-08 23:25] VITALS: BP 144/80; PULSE 80; RESP 20; TEMP 36.6; O2SAT 98
== END 2024-10-08 23:27 | disposition home or self-care (01) ==
PROVIDERS: Emergency Provider Student in an Organized Health Care Education/Training Program; PCP Internal Medicine
DX: R07.9 Chest pain, unspecified (principal); R10.13 Epigastric pain; K92.1 Melena; M54.2 Cervicalgia; M54.9 Dorsalgia, unspecified
CPT/HCPCS: 71250; 74176; 80053; 81001; 83605; 83690; 84484; 85025; 85610; 85730; 93005; 96361; 96374; 96375; 99284; J1885; J2270; J2405; J7120

== ENCOUNTER 2024-11-01 18:34 | Emergency (ER) | payer MEDICAID, SELFPAY ==
[2024-11-01 18:46] VITALS: BP 143/79; PULSE 100; RESP 18; TEMP 37.1; O2SAT 100; BMI 23.5
[2024-11-01 18:47] VITALS: BP 143/79; PULSE 95; O2SAT 100
[2024-11-01 18:48] LABS: Microscopic, Urine URINE MICROSCOPIC (MICROSCOPIC)
[2024-11-01 18:50] LABS: Appearance,Urine CLEAR (Clear); Bilirubin,Urine Negative (Negative); Blood, Urine Negative (Negative); Color,Urine YELLOW (Yellow); Glucose,Urine (UA) Negative (Negative); Ketones,Urine Negative (Negative); Leukocyte Esterase,Urine Negative (Negative); Nitrate,Urine Negative (Negative); Protein,Urine Negative (Negative); Specific Gravity, Urine <= 1.005 (1.005-1.030); Urobilinogen,Urine 0.2 EU/dl (0.2)
[2024-11-01 19:01] VITALS: BP 124/89; PULSE 101; O2SAT 100
--- NOTE | 2024-11-01 19:01 | XR_ITS ---
PROCEDURE INFORMATION: Exam: XR Right Knee Exam date and time: 11/01/2024 7:41 PM Age: 53 years old Clinical indication: Injury or trauma; Fall; Other: Pain; Additional info: Fall, anterior pain TECHNIQUE: Imaging protocol: Radiologic exam of the right knee. Views: 3 views. COMPARISON: CR XR KNEE RT 3V 06/13/2023 6:52 PM FINDINGS: Bones/joints: See Soft tissues finding. Soft tissues: Mild prepatellar soft tissue swelling without acute osseous abnormality. IMPRESSION: Mild prepatellar soft tissue swelling without acute osseous abnormality.
--- NOTE | 2024-11-01 19:01 | XR_ITS ---
PROCEDURE INFORMATION: Exam: XR Chest Exam date and time: 11/01/2024 7:41 PM Age: 53 years old Clinical indication: Cough; Additional info: Cough, productive TECHNIQUE: Imaging protocol: Radiologic exam of the chest. Views: 1 view. COMPARISON: CT CHEST WO CON 10/08/2024 9:26 PM FINDINGS: Lungs: Central opacities with peribronchial cuffing, seen to advantage on the lateral chest radiograph. Bilateral lung base opacities may represent developing consolidation. Pleural spaces: Unremarkable. No pleural effusion. No pneumothorax. Heart/Mediastinum: Unremarkable. No cardiomegaly. Bones/joints: Unremarkable. IMPRESSION: Combination of findings that suggests viral process with possible developing consolidation.
[2024-11-01] MEDS: ACETAMINOPHEN 500MG TAB 1000 MG PO (19:12)
[2024-11-01] MEDS: DEXAMETHASONE 4MG TABLET 10 MG PO (19:12)
--- NOTE | 2024-11-01 19:23 | ED_ITS ---
Discharge Plan Disposition Patient Disposition: Home, Self-Care Condition: Good Prescriptions Prescriptions: No Action clonazepam 0.5 mg tablet 0.5 mg PO DAILY hydrocodone-acetaminophen 10-325 mg tablet 1 tab PO DAILY omeprazole 40 mg capsule,delayed release(DR/EC) 40 mg PO DAILY Rx Instructions: TAKE ONE CAPSULE BY MOUTH ONCE A DAY FOR GERD levothyroxine 25 mcg tablet 25 mcg PO DAILY Rx Instructions: TAKE ONE TABLET BY MOUTH ONCE A DAY FOR THYROID benzonatate 100 mg capsule 100 mg PO DAILY Rx Instructions: TAKE 1 CAPSULE BY MOUTH 3 TIMES A DAY NEEDED FOR COUGH promethazine 25 mg tablet 25 mg PO BIDP PRN (Reason: Nausea And Vomiting) Rx Instructions: TAKE ONE TABLET BY MOUTH 3 TIMES A DAY fluticasone propionate 50 mcg/actuation spray,suspension 50 mcg intranasal DAILY Rx Instructions: USE 1 SPRAY IN EACH NOSTRIL 2 TIMES A DAY FOR ALLERGIES loperamide 2 mg capsule 6 mg PO DIRECTED fluticasone propionate 50 mcg/actuation spray,suspension 1 spray INTRANASAL DAILY dicyclomine 20 mg tablet 20 mg PO TID PRN (Reason: abdominal pain or spasm) 7 Days Qty: 21 0RF Referrals Follow up/Referrals: Provider,Referral, MD [Primary Care Provider] - See instructions Activity Restrictions/Add. Instructions Additional Instructions/Restrictions: Call your family doctor to establish care for this visit to the emergency department and schedule follow-up within 48 hours to ensure improvement. If you have any worsening of your condition or any other concerning signs or symptoms, return to the emergency department or your primary care doctor for further evaluation. Take Tylenol 1000 mg every 6 hours (4 times daily) and ibuprofen 400 mg every 6 hours (4 times daily) as needed with food and water to prevent GI upset and kidney damage. Clinical Impressions Clinical Impression: Acute pain of right knee, Shortness of breath, Cough Print Language Print Language: Luxembourgish Discharge ED Provider: Boni Alcantara General Adult HPI General Chief complaint: PAIN Stated complaint: AO fell 11/01/24 Right knee injury,kidneys,back pa Time Seen by Provider: 11/01/24 18:54 Mode of Arrival: Wheelchair Source of Information: Patient Description of Symptoms (Recalled from ER Triage Doc. by RN): r knee pain and back pain. both chronic. History of Present Illness HPI narrative: Please note that above description of symptoms, in this electronic medical record under categorization of recalled from ER triage doctor by RN are reflective of an initial nursing assessment, however, is not reflective of my full history and physical exam that was personally taken and clarified. Consequentially, this preceding description of symptoms, which may include the patient's categorized chief complaint in the EMR, do not reflect my personal clinical impression, and the ultimate description of history of present illness and patient stated complaints should be deferred to this section of the note. Unless stated otherwise or congruent with this section of the note, additional signs, symptoms, or incongruence should be interpreted as inaccurate with my clinical impression. Related Data Home Medications ?Medication ?Instructions ?Recorded ?Confirmed clonazepam 0.5 mg tablet 0.5 mg PO DAILY 06/07/24 10/08/24 hydrocodone 10 mg-acetaminophen 1 tab PO DAILY 06/07/24 07/24/24 325 mg tablet benzonatate 100 mg capsule 100 mg PO DAILY 07/24/24 10/08/24 fluticasone propionate 50 50 mcg intranasal DAILY 07/24/24 10/08/24 mcg/actuation nasal spray,suspension levothyroxine 25 mcg tablet 25 mcg PO DAILY 07/24/24 10/08/24 omeprazole 40 mg capsule,delayed 40 mg PO DAILY 07/24/24 10/08/24 release promethazine 25 mg tablet 25 mg PO BIDP PRN Nausea And 07/24/24 10/08/24 Vomiting fluticasone propionate 50 1 spray intranasal DAILY 10/08/24 10/08/24 mcg/actuation nasal spray,suspension loperamide 2 mg capsule 6 mg PO DIRECTED 10/08/24 10/08/24 Previous Rx's ?Medication ?Instructions ?Recorded dicyclomine 20 mg tablet 20 mg PO TID PRN abdominal pain or 10/08/24 spasm 7 days #21 tabs Allergies Allergy/AdvReac Type Severity Reaction Status Date / Time lidocaine Allergy Intermediate Red, Rash, Verified 10/08/24 19:41 Itching codeine (CODEINE) Allergy Unknown VOMITING Verified 10/08/24 19:00 erythromycin base Allergy Unknown ITCHING/HIV Verified 10/08/24 19:00 (ERYTHROMYCIN BASE) ES Penicillins (PENICILLINS) Allergy Unknown VOMITING Verified 10/08/24 19:00 ibuprofen Allergy Hives Verified 10/08/24 19:00 [facility] Disclaimer: The information contained in this section may have been updated after the patient was seen, as this information can be updated by other users. Medical History Rheumatic arteritis COPD (chronic obstructive pulmonary disease) Hyperlipidemia History of ovarian cancer Colon cancer LGSIL Pap smear of vagina Back pain Bilateral pendulous breasts Feeling of incomplete bladder emptying Encounter for pre-operative cardiovascular clearance Chest tightness Daytime somnolence Abnormal electrocardiography Dyspnea Lumbar disc disease with radiculopathy Surgical History History of cranial surgery Hx of neck surgery cervical History of hysterectomy History of cholecystectomy Family History Other Anemia Asthma Cancer Coronary artery disease Diabetes Family history of bronchitis Family history of myocardial infarction Family history of stroke Heart attack Hyperlipidemia Hypertension Kidney disease Stroke Thyroid disorder Social History Smoking Status: Current every day smoker second hand exposure: No alcohol intake: current alcohol intake frequency: a few times a week substance use type: denies use current occupational status: disabled Travel in the last 8 weeks: None household members: none housing: house lives independently: Yes marital status: single number of children: 3 education level: high school current occupational exposures/hazards: No caffeine: No special christopher needs: No agree to transfusion: No do you feel safe at home: Yes victim of physical abuse: No victim of emotional abuse: No victim of sexual abuse: No would you like helpful sources: No Have you lived/traveled outside [place] in past 30 days?: No Contact w/someone who lives/traveled outside US past 30 days?: No Exposure to someone with infectious disease in past 14 days?: No Do you have a fever (greater than 100.4 F or 38 C)?: No Have you tested positive for COVID-19: No Exposed to someone with COVID-19 in past 14 days?: No Do you have a sore throat?: No Do you have a cough?: No Do you have any weakness?: No Do you have any diarrhea?: No Are you experiencing any unusual bleeding?: No Do you have any muscle aches/pain?: No Do you have any abdominal pain?: No Are you experiencing loss of taste or smell?: No Other Medical History Have you received the Flu Vaccine for this season: No Have you received the Pneumonia Vaccine: No ROS Obtained: Yes All systems reviewed & no additional complaints except as documented Physical Exam General General appearance: alert Head Head exam: atraumatic and normocephalic Eye Eye exam: Present normal appearance, PERRL and EOMI Neck Neck exam: Present normal inspection, full ROM and trachea midline Respiratory Respiratory exam: Absent respiratory distress, wheezes, stridor, accessory muscle use or prolonged expiratory phase Cardiovascular Cardiovascular exam: Present other (Pulses equal symmetric in upper and lower extremities) Abdominal Exam Abdominal exam: Present soft; Absent distention, tenderness or pulsatile mass Extremities Exam Extremities exam: Absent edema Neurological Exam Neurological exam: Present alert, oriented X3 and CN II-XII intact; Absent motor sensory deficit Skin Skin exam: Present warm and dry; Absent diaphoresis or erythema Medical Decision Making Medical Records Medical records reviewed: Yes I reviewed the patient's medical records. Screening: Per USPSTF and CDC recommendations, given the prevalence of disease in our region, it is our hospital?s policy to screen for HIV and viral Hepatitis for all patients aged 18 and over and those with ongoing risk factors. [place] Inquiry Pt receiving controlled substance: No [place] was queried for this patient: No Vital Signs: 11/01/24 18:46 11/01/24 18:47 11/01/24 19:01 Temperature 98.7 F Temperature Source Oral Pulse Rate 95 H 101 H Pulse Rate [Right] 100 H Respiratory Rate 18 Blood Pressure 143/79 H 124/89 Blood Pressure [Right Arm] 143/79 H Blood Pressure Mean 100 99 Blood Pressure Mean [Right Arm] 100 Blood Pressure Source Blood Pressure Position 02 Sat by Pulse Oximetry 100 100 100 Oxygen Delivery Method Room Air 11/01/24 21:11 Temperature 98.6 F Temperature Source Oral Pulse Rate 84 Pulse Rate [Right] Respiratory Rate 20 Blood Pressure 124/89 Blood Pressure [Right Arm] Blood Pressure Mean Blood Pressure Mean [Right Arm] Blood Pressure Source Automatic Cuff Blood Pressure Position Supine 02 Sat by Pulse Oximetry Oxygen Delivery Method Room Air Lab Data Lab Results 11/01/24 18:43: Urine Color Yellow, Urine Appearance Clear, Urine pH 6.0, Ur Specific [place] <= 1.005, Urine Protein Negative, Urine Glucose (UA) Negative, Urine Ketones Negative, Urine Blood Negative, Urine Nitrate Negative, Urine Bilirubin Negative, Urine Urobilinogen 0.2, Ur Leukocyte Esterase Negative, Urine RBC None, Urine WBC Occasional, Ur Squamous Epith Cells Occasional, Urine Bacteria Trace 11/01/24 19:30: WBC 9.2, RBC 3.95 L, Hgb 12.0 L, Hct 36.0 L, MCV 91.1, MCH 30.4, MCHC 33.3, RDW 13.5, Plt Count 380, MPV 9.0, Neut % (Auto) 37.9, Lymph % (Auto) 57.3 H, [place] % (Auto) 3.9, Eos % (Auto) 0.4, Baso % (Auto) 0.4, Neut # (Auto) 3.5, Lymph # (Auto) 5.3 H, [place] # (Auto) 0.4, Eos # (Auto) 0.0, Baso # (Auto) 0.0, Total Counted 100, Neutrophils % (Manual) 31 L, Lymphocytes % (Manual) 59 H , Monocytes % (Manual) 7, Eosinophils % (Manual) 3, Platelet Estimate Normal, Poikilocytosis 1+, Target Cells 1+, Sodium 138, Potassium 3.8, Chloride 100, Carbon Dioxide 24, Anion Gap 17.8 H, BUN 10, Creatinine 0.60, Estimated Creat Clear 108, Estimated GFR 105, Est GFR ( Amer) 127, Glucose 109 H, Calcium 10.3 H, Total Bilirubin 0.5, AST 45 H, ALT 19, Alkaline Phosphatase 125, Troponin I < 0.01, NT-Pro-B Natriuret Pep 154 H, Total Protein 8.6 H, Albumin 5.0, Globulin 3.6 H, Albumin/Globulin Ratio 1.4 11/01/24 19:30 11/01/24 19:30 Orders (Tests/Meds): ED MEDICATIONS Discontinued Medications Generic Name Dose Route Start Last Admin Trade Name Freq PRN Reason Stop Dose Admin Acetaminophen 1,000 mg 11/01/24 19:01 11/01/24 19:12 Acetaminophen 500mg Tab PO 11/01/24 19:02 1,000 mg ONCE ONE Administration Dexamethasone 10 mg 11/01/24 19:01 11/01/24 19:12 Dexamethasone 4mg Tablet PO 11/01/24 19:02 10 mg ONCE ONE Administration ORDERS Category Date Time Status CXR --portable [XR chest portable] Stat Exams 11/01/24 19:01 Completed Knee XR right 3 views [XR knee RT 3V] Stat Exams 11/01/24 19:01 Completed CBC w/Auto Diff [Complete Blood Count Auto Diff] Stat Lab 11/01/24 19:30 Completed CMP [Comprehensive Metabolic Panel] Stat Lab 11/01/24 19:30 Completed NT Pro Brain Natriuretic Pep. Stat Lab 11/01/24 19:30 Completed Trop I [Troponin I] Stat Lab 11/01/24 19:30 Completed UA [Urinalysis and Microscopic] Stat Lab 11/01/24 18:43 Completed Medical Decision Narrative: 53-year-old female history of near full body chronic pain, fibromyalgia, hypertension, hyperlipidemia, illness anxiety disorder, COPD not still smoking, presenting with multiple complaints. Patient tells registration that she has right knee pain after an injury, but also states that her kidneys and back are hurting. She tells nursing that she has finger pain and knee pain. She tells me that she has shortness of breath and knee pain. I am not sure what to make of all of patient's complaints, but patient is in no acute distress. She speaking in full sentences and clinically well-appearing. She states that she was walking today with her dog, went down on her right knee and landed directly on the knee on concrete. Able to ambulate, but having significant pain. States that it is all over, but cannot point to a specific point on the knee where it hurts. Has not taken anything for the pain. Patient does not mention back pain, urinary symptoms, fevers, chills, abdominal pain, etc. She states that her main complaint today is actually my shortness of breath. She states that she has been short of breath for weeks and has been coughing up thick, green phlegm. States that this has not changed. She has been on steroids and antibiotics and nothing is made it better. Asking for her lungs and heart to be checked out as well as her knee, although not having chest pain. History was obtained via conversation with patient. On arrival, patient hemodynamically stable, alert, oriented x4, appropriate, GCS 15, moving all extremities spontaneously, pupils equal and reactive to light. Full physical exam performed and significant for very clinically well-appearing female who is in no acute distress. Patient states that she feels fatigued and short of breath, but she speaking in full sentences and appears anxious, if anything. Lungs are clear, cardiac exam nontachycardic, no murmurs gallops or rubs. No lower extremity edema. Right lower extremity has old scar overlying the knee, but no acute outward signs of abnormality. Even prior to touching the knee, patient jumping and hyperalgesic versus symptom magnification. Neurologically intact bilateral lower extremities. Differential includes illness anxiety disorder, sprain, minor medic injury, COPD exacerbation, bronchitis, pneumonia, less likely be ACS, [place], pneumothorax, fracture, dislocation, among others. Patient placed on continuous cardiac monitoring and continuous pulse ox with initial blood pressure 143/79, heart rate 100, saturation 100% on room air. Independent interpretation of EKG shows largely nondiagnostic exam, but what I can tell appears to be sinus rhythm with IA interval about 200 ms. QRS 102 and narrow, QTc 413. No obvious acute ischemic change. Patient was given acetaminophen and dexamethasone for symptomatic management and correction of underlying abnormalities. Workup independently interpreted and significant for nonactionable hematologic labs. On independent interpretation of imaging, no acute cardiopulmonary space disease on chest x-ray. Reevaluation, patient still continuing to add new complaints and ask for various workups. Recommend she follow-up with her family doctor. Because patient at baseline without signs or symptoms of clinical decompensation, deemed appropriate for discharge. Results were relayed to patient who voiced understanding and were agreeable to outpatient management and follow up. I discussed my clinical impression with patient and answered all questions. At this time, the evidence for any other entities in the differential is insufficient to warrant any further testing or ED observation. This was explained as well. Advisory was given that persistent or worsening symptoms require further evaluation. I confirmed the understanding of this discussion. Compugraph Operator disclaimer Much of this encounter note is an electronic direct casting operator spoken language to printed text. Electronic direct casting operator of the spoken language may permit errors. Although I have reviewed the note, some errors may still exist. Critical Care Critical Care Time Critical Care Time: No
[2024-11-01 19:44] LABS: Basophils % 0.4 % (0.1-2.0); Eosinophils % 0.4 % (0.1-12.0); Lymphocytes # 5.3 K/mm3 (0.7-4.5); Lymphocytes % 57.3 % (10-50); Mean Corpuscular HGB Conc 33.3 g/dL (31.8-35.4); Mean Corpuscular Hemoglobin 30.4 pg (27.0-31.2); Mean Corpuscular Volume 91.1 fl (81-99); Monocytes # 0.4 K/mm3 (0.1-1.0); Monocytes % 3.9 % (1.7-9.3); Neutrophils # 3.5 K/mm3 (1.8-7.8); Neutrophils % 37.9 % (37.0-80.0); Nucleated Red Blood Cells # 0 10^3/uL; Nucleated Red Blood Cells % 0 %; Platelet Count 380 K/mm3 (142-424); Red Blood Count 3.95 M/mm3 (4.20-5.40); Red Cell Distribution Width 13.5 % (11.5-17.5); Red Cell Distribution Width-SD 45.1 fL; White Blood Count 9.2 K/mm3 (4.8-10.8)
[2024-11-01 19:50] LABS: Chloride 100 mmol/L (98-107); Potassium 3.8 mmoL/L (3.5-5.1); Sodium 138 mmol/L (136-145)
[2024-11-01 19:51] LABS: Squamous Epithelial Cell,Urine Occasional #/hpf (0-5); WBC,Urine Occasional #/hpf (0-3)
[2024-11-01 19:52] LABS: Bacteria,Urine Trace /lpf
[2024-11-01 19:52] LABS: MANUAL DIFFERENTIAL MANUAL DIFFERENTIAL (MANUAL DIFF)
[2024-11-01 19:53] LABS: Alanine Aminotransferase 19 U/L (12-78); Albumin/Globulin Ratio 1.4 (1.1-1.8); Alkaline Phosphatase 125 U/L (38-126); Anion Gap 17.8 mEq/L (5-15); Aspartate Amino Transferase 45 U/L (14-36); Bilirubin,Total 0.5 mg/dl (0.2-1.3); Blood Urea Nitrogen 10 mg/dl (7-17); Carbon Dioxide 24 mmol/L (22.0-30.0); Creatinine Clearance Estimated 108 mL/min (50-200); Estimated Glomerular Filt Rate 105 ml/min (>60); GFR (African American) 127 ML/MIN (>60); Globulin 3.6 g/dL (1.3-3.2); Glucose 109 mg/dl (74-100); Total Protein,Serum 8.6 g/dl (6.3-8.2)
[2024-11-01 19:54] LABS: Calcium 10.3 mg/dl (8.4-10.2)
--- NOTE | 2024-11-01 19:54 | ECG_ITS ---
APPROVED REPORT Exam: Resting ECG HR:90 bpm ECG Measurements Heart Rate 90 AXES QRSd 102 QRS 74 QT 365 T 64 QTc 413 Conclusion Sinus rhythm Largely nondiagnostic exam otherwise Electronically signed by : ASHLEY PAINTER, 11/02/2024 19:45:46
[2024-11-01 20:03] LABS: NT Pro Brain Natriuretic Pep. 154 pg/mL (0-125)
[2024-11-01 20:09] LABS: Troponin I < 0.01 ng/ml (0.00-0.034)
[2024-11-01 20:18] LABS: Eosinophils % 3 % (0-3); Lymphocytes % 59 % (10-50); Monocytes % 7 % (2-9); Neutrophils % 31 % (42-76); Platelet Estimate Normal; Poikilocytosis 1+; Target Cells 1+; Total Cells Counted 100
[2024-11-01 21:11] VITALS: BP 124/89; PULSE 84; RESP 20; TEMP 37; O2SAT 97
== END 2024-11-01 21:17 | disposition home or self-care (01) ==
PROVIDERS: Emergency Provider Emergency Medicine
DX: M25.561 Pain in right knee (principal); R06.02 Shortness of breath; W18.30XA Fall on same level, unspecified, initial encounter
CPT/HCPCS: 99284; 71045; 73562; 80053; 81001; 83880; 84484; 85007; 85025; 85027; 93005; J8540

== ENCOUNTER 2024-11-23 08:59 | Outpatient (CLI) | payer MEDICAID, SELFPAY ==
[2024-11-23 09:56] LABS: Alanine Aminotransferase 22 U/L (12-78); Albumin Level 4.5 g/dl (3.5-5.0); Albumin/Globulin Ratio 1.3 (1.1-1.8); Alkaline Phosphatase 132 U/L (38-126); Aspartate Amino Transferase 39 U/L (14-36); Bilirubin,Total 0.8 mg/dl (0.2-1.3); Blood Urea Nitrogen 9 mg/dl (7-17); Calcium 9.9 mg/dl (8.4-10.2); Carbon Dioxide 27 mmol/L (22.0-30.0); Chloride 105 mmol/L (98-107); Cholesterol 279 mg/dl (140-200); Estimated Glomerular Filt Rate 105 ml/min (>60); GFR (African American) 127 ML/MIN (>60); Gamma Glutamyl Transpeptidase 130 U/L (12-43); Globulin 3.5 g/dL (1.3-3.2); Glucose 111 mg/dl (74-100); Sodium 138 mmol/L (136-145); Triglycerides 70 mg/dl (30-150); VLDL Cholesterol 14 mg/dL (0-40)
[2024-11-23 10:05] LABS: Chol/HDL Ratio 2.2 (1-3.5); HDL Cholesterol 126 mg/dl (40-60)
[2024-11-23 10:07] LABS: Direct LDL Cholesterol 118.85 mg/dL (100-129)
[2024-11-23 10:32] LABS: Anion Gap 9.9 mEq/L (5-15); Potassium 3.9 mmoL/L (3.5-5.1)
[2024-11-23 19:33] LABS: Ethyl Alcohol < 10 mg/dl (0-10)
== END 2024-11-23 23:59 | disposition home or self-care (01) ==
PROVIDERS: PCP Internal Medicine; Visit Provider Internal Medicine
DX: Z00.00 Encounter for general adult medical examination without abnormal findings (principal); Z13.220 Encounter for screening for lipoid disorders; F10.920 Alcohol use, unspecified with intoxication, uncomplicated; E78.5 Hyperlipidemia, unspecified
CPT/HCPCS: 36415; 80053; 80061; 80320; 82977

== ENCOUNTER 2024-12-06 21:12 | Emergency (ER) | payer MEDICAID, SELFPAY ==
[2024-12-06 21:06] VITALS: BP 133/96; PULSE 107; RESP 20; TEMP 37.1; O2SAT 98; BMI 25.4
--- NOTE | 2024-12-06 21:11 | CT_ITS ---
PROCEDURE INFORMATION: Exam: CT Head Without Contrast Exam date and time: 12/06/2024 9:15 PM Age: 54 years old Clinical indication: Stroke-like symptoms; Other: Possible stroke TECHNIQUE: Imaging protocol: Computed tomography of the head without contrast. Radiation optimization: All CT scans at this facility use at least one of these dose optimization techniques: automated exposure control; mA and/or kV adjustment per patient size (includes targeted exams where dose is matched to clinical indication); or iterative reconstruction. Other technique: STROKE PROTOCOL was implemented. COMPARISON: CT HEAD/BRAIN WO CON 09/01/2023 7:44 AM FINDINGS: Brain: There is mild diffuse cerebral volume loss present. Multiple subcortical and deep hypoattenuating white matter foci are present, likely related to small vessel senescent changes and can also be seen with prior infectious / inflammatory insult, or prior traumatic events. No hyperattenuating foci are identified to suggest acute intracranial hemorrhage. Cerebral ventricles: No ventriculomegaly. Paranasal sinuses: Visualized sinuses are unremarkable. No fluid levels. Mastoid air cells: Visualized mastoid air cells are well aerated. Bones: Unremarkable. No acute fracture. Soft tissues: Unremarkable. IMPRESSION: 1. Multiple subcortical and deep hypoattenuating white matter foci are present, likely related to small vessel senescent changes and can also be seen with prior infectious / inflammatory insult, or prior traumatic events. 2. No hyperattenuating foci are identified to suggest acute intracranial hemorrhage. ASSESSMENT: ASPECTS ([place] Stroke Program Early CT Score) is 10.
[2024-12-06 21:15] LABS: Basophils # 0.1 K/mm3 (0-0.2); Basophils % 0.6 % (0.1-2.0); Eosinophils # 0.1 Kmm3 (0.0-0.4); Eosinophils % 0.6 % (0.1-12.0); Hematocrit 38.7 % (37.0-47.0); Hemoglobin 12.8 g/dL (12.2-16.2); Immature Granulocytes # 0.01 10^3uL; Immature Granulocytes % 0.1 %; Lymphocytes # 5.1 K/mm3 (0.7-4.5); Lymphocytes % 60.8 % (10-50); Mean Corpuscular HGB Conc 33.1 g/dL (31.8-35.4); Mean Corpuscular Hemoglobin 29.8 pg (27.0-31.2); Monocytes # 0.4 K/mm3 (0.1-1.0); Monocytes % 4.7 % (1.7-9.3); Neutrophils # 2.8 K/mm3 (1.8-7.8); Neutrophils % 33.2 % (37.0-80.0); Nucleated Red Blood Cells # 0 10^3/uL; Nucleated Red Blood Cells % 0 %; Platelet Count 384 K/mm3 (142-424); White Blood Count 8.4 K/mm3 (4.8-10.8)
[2024-12-06 21:16] LABS: MANUAL DIFFERENTIAL MANUAL DIFFERENTIAL (MANUAL DIFF)
[2024-12-06 21:26] LABS: Activated Partial Thrombo Time 24.8 seconds (22.8-30.6); Prothrombin Time 10.2 seconds (10.1-12.5)
[2024-12-06 21:28] LABS: Ethyl Alcohol 225 mg/dl (0-10)
[2024-12-06 21:37] LABS: VBG Base Excess -5.9 mmol/L (-2.4-2.3); VBG HCO3 20.5 mmol/L (23-30); VBG PCO2 42.6 mmol/L (35-51); VBG PO2 51.6 mmol/L (28-40); VBG Total CO2 21.8 mmol/L (23-27)
[2024-12-06 21:38] LABS: Alanine Aminotransferase 26 U/L (12-78); Albumin Level 5.4 g/dl (3.5-5.0); Albumin/Globulin Ratio 1.9 (1.1-1.8); Alkaline Phosphatase 131 U/L (38-126); Anion Gap 24.2 mEq/L (5-15); Aspartate Amino Transferase 87 U/L (14-36); Bilirubin,Total 1.2 mg/dl (0.2-1.3); Blood Urea Nitrogen 5 mg/dl (7-17); Calcium 9.7 mg/dl (8.4-10.2); Carbon Dioxide 14 mmol/L (22.0-30.0); Chloride 100 mmol/L (98-107); Cholesterol 242 mg/dl (140-200); Creatine Kinase 208 U/L (30-135); Creatinine Clearance Estimated 119 mL/min (50-200); Estimated Glomerular Filt Rate 105 ml/min (>60); GFR (African American) 127 ML/MIN (>60); Globulin 2.8 g/dL (1.3-3.2); Glucose 99 mg/dl (74-100); Potassium 5.2 mmoL/L (3.5-5.1); Sodium 133 mmol/L (136-145); Total Protein,Serum 8.2 g/dl (6.3-8.2); Triglycerides 99 mg/dl (30-150); VLDL Cholesterol 20 mg/dL (0-40)
[2024-12-06 21:39] LABS: Lactate Venous 2.3 mmol/L (0.4-2.0)
[2024-12-06 21:49] LABS: Direct LDL Cholesterol 97.53 mg/dL (100-129)
--- NOTE | 2024-12-06 21:49 | ECG_ITS ---
APPROVED REPORT Exam: Resting ECG HR:92 bpm ECG Measurements Heart Rate 92 AXES QRSd 85 QRS 61 QT 370 T 41 QTc 419 Conclusion Sinus rhythm with motion artifact. No ST Electronically signed by : DAMEON REYES, 12/07/2024 23:36:18
[2024-12-06 21:50] LABS: Microscopic, Urine URINE MICROSCOPIC (MICROSCOPIC)
[2024-12-06] MEDS: KETOROLAC 30MG/ML VIAL 15 MG IV (21:50)
[2024-12-06] MEDS: LACTATED RINGERS 1000ML 1,000 ML 999 ML IV (21:50)
[2024-12-06 21:53] LABS: Appearance,Urine CLEAR (Clear); Bilirubin,Urine Negative (Negative); Blood, Urine Negative (Negative); Color,Urine YELLOW (Yellow); Glucose,Urine (UA) Negative (Negative); Ketones,Urine Negative (Negative); Leukocyte Esterase,Urine 1+ (Negative); Nitrate,Urine Negative (Negative); Protein,Urine Negative (Negative); Specific Gravity, Urine <= 1.005 (1.005-1.030); Urobilinogen,Urine 0.2 EU/dl (0.2)
[2024-12-06 21:58] LABS: Magnesium 1.8 mg/dl (1.6-2.3); Phosphorous 4.2 mg/dl (2.5-4.5)
[2024-12-06 21:59] LABS: Thyroid Stimulating Hormone 2.08 uIU/mL (0.465-4.68)
[2024-12-06 22:00] VITALS: BP 123/75; PULSE 94; RESP 15; O2SAT 94
[2024-12-06 22:08] LABS: Amphetamine/Metha Screen,Urine Negative ng/ml (<1000); Barbiturates Screen,Urine Negative ng/ml (<200)
[2024-12-06 22:09] LABS: Benzodiazepines Screen,Urine Negative ng/ml (<200)
[2024-12-06 22:10] LABS: Cannabinoid Screen,Urine Negative ng/ml (<50); Cocaine Screen,Urine Negative ng/ml (<300)
[2024-12-06 22:11] LABS: Methadone Screen,Urine Negative ng/ml (<300); Opiate Screen,Urine Positive ng/ml (<300)
[2024-12-06 22:15] LABS: Phencyclidine Screen,Urine Negative ng/ml (<25)
[2024-12-06 22:25] LABS: Lymphocytes % 64 % (10-50); Monocytes % 1 % (2-9); Neutrophils % 33 % (42-76); Total Cells Counted 100
[2024-12-06 22:26] LABS: Platelet Estimate Normal; Stomatocytes 1+
[2024-12-06 22:31] VITALS: BP 126/72; PULSE 90; RESP 19; O2SAT 100
[2024-12-06 22:37] LABS: Chol/HDL Ratio 2.1 (1-3.5); HDL Cholesterol 118 mg/dl (40-60)
[2024-12-06 22:59] LABS: Troponin I 0.01 ng/ml (0.00-0.034)
[2024-12-06 23:02] LABS: T4 (Thyroxine) 7.4 ug/dl (5.53-11.0)
[2024-12-06 23:31] LABS: Bacteria,Urine 3+ /lpf; RBC,Urine Occasional #/hpf (0-3); Squamous Epithelial Cell,Urine Occasional #/hpf (0-5)
--- NOTE | 2024-12-06 23:38 | ED_ITS ---
Discharge Plan Disposition Patient Disposition: Home, Self-Care Condition: Good Prescriptions Prescriptions: New doxycycline hyclate 100 mg capsule 100 mg PO BID 7 Days Qty: 14 0RF Rx Instructions: Take 1 tablet by mouth twice daily for 7 days. Drink a full glass of water after taking this tablet and stay sitting up for 30 minutes after taking this. No Action clonazepam 0.5 mg tablet 0.5 mg PO DAILY Anoro Ellipta 62.5-25 mcg/actuation blister with device 1 inh inhalation ONCE Patient Comments: INHALE 1 PUFF BY MOUTH ONCE A DAY albuterol sulfate 90 mcg/actuation HFA aerosol inhaler 1 inh inhalation Q6H PRN Trelegy Ellipta 100-62.5-25 mcg blister with device 1 inh inhalation DAILY Qty: 60 2RF benzonatate 100 mg capsule 100 mg PO DAILY Qty: 60 3RF Rx Instructions: TAKE 1 CAPSULE BY MOUTH 3 TIMES A DAY NEEDED FOR COUGH hydrocortisone-aloe vera [Anti-Itch(hydrocortisone)-Aloe] 1 % cream 1 applic topical TID PRN (Reason: skin irritation) Qty: 28 5RF hydrocodone-acetaminophen 10-325 mg tablet 1 tab PO Q8H PRN (Reason: pain) Qty: 90 0RF fluticasone propionate 50 mcg/actuation spray,suspension 1 spray INTRANASAL DAILY Qty: 16 2RF omeprazole 40 mg capsule,delayed release(DR/EC) 40 mg PO DAILY Rx Instructions: TAKE ONE CAPSULE BY MOUTH ONCE A DAY FOR GERD levothyroxine 25 mcg tablet 25 mcg PO DAILY Rx Instructions: TAKE ONE TABLET BY MOUTH ONCE A DAY FOR THYROID promethazine 25 mg tablet 25 mg PO BIDP PRN (Reason: Nausea And Vomiting) Rx Instructions: TAKE ONE TABLET BY MOUTH 3 TIMES A DAY fluticasone propionate 50 mcg/actuation spray,suspension 50 mcg intranasal DAILY Rx Instructions: USE 1 SPRAY IN EACH NOSTRIL 2 TIMES A DAY FOR ALLERGIES loperamide 2 mg capsule 6 mg PO DIRECTED Referrals Follow up/Referrals: Provider,Referral, MD [Primary Care Provider] - See instructions Activity Restrictions/Add. Instructions Additional Instructions/Restrictions: You were evaluated in the ER and are appropriate for discharge at this time. Please avoid alcohol and any other illicit drugs. Take the prescribed doxycycline as directed. Keep your tick bites clean and dry. Use appropriate tick repellent and try to avoid having ticks. If you do notice one, immediately remove it. Make an appointment with your primary care doctor for reevaluation in 2 to 3 days. Return to the ER with new, worsening, or otherwise concerning symptoms Clinical Impressions Clinical Impression: Alcohol intoxication, Tick bite Print Language Print Language: Citizen Of [place] Discharge ED Provider: Joaquin Parra General Adult HPI <Sarah Mason DO - Last Filed: 12/07/24 00:28> General Chief complaint: Neuro Symptoms/Deficit Stated complaint: Stroke Time Seen by Provider: 12/06/24 21:16 Mode of Arrival: EMS Source of Information: Patient and EMS Description of Symptoms (Recalled from ER Triage Doc. by RN): pt presents as stroke alert per EMS with onset of symptoms 12/05/24 approx 1000. Per family pt began having trouble getting words out and moving extremities. Pt taken to ct upon arrival at 2108. History of Present Illness HPI narrative: This patient is a 54-year-old female with a history of chronic alcohol abuse, ovarian cancer, colon cancer, tobacco use presented to the emergency department for evaluation with concern for altered mental status and possible stroke alert. According to EMS, the patient reportedly started acting abnormally yesterday and was having trouble getting words out and pain with moving her upper extremities. She complains of pain all over. Patient smells of alcohol upon arrival and is crying, hysterical, not cooperative with exam or history. She refuses to speak when asked directed questions, but when asked clarification questions she does answer without issue. She has no word finding difficulty or aphasia when choosing to spontaneously participate in conversation. She is moving all 4 extremities equally and actually fighting against attempts to passively range her extremities, indicating she does not have any focal weakness. She states that she drank some beers yesterday but denies any alcohol use today. She complains of pain everywhere but does not contribute to history otherwise. Related Data Home Medications ?Medication ?Instructions ?Recorded ?Confirmed clonazepam 0.5 mg tablet 0.5 mg PO DAILY 06/07/24 11/22/24 fluticasone propionate 50 50 mcg intranasal DAILY 07/24/24 11/22/24 mcg/actuation nasal spray,suspension levothyroxine 25 mcg tablet 25 mcg PO DAILY 07/24/24 11/22/24 omeprazole 40 mg capsule,delayed 40 mg PO DAILY 07/24/24 11/22/24 release promethazine 25 mg tablet 25 mg PO BIDP PRN Nausea And 07/24/24 11/22/24 Vomiting loperamide 2 mg capsule 6 mg PO DIRECTED 10/08/24 11/22/24 albuterol sulfate 90 mcg/actuation 1 inh inhalation Q6H PRN 11/22/24 11/22/24 aerosol inhaler umeclidinium 62.5 mcg-vilanterol 1 inh inhalation ONCE 11/22/24 11/22/24 25 mcg/actuation powdr for inhalation (Anoro Ellipta) Previous Rx's ?Medication ?Instructions ?Recorded benzonatate 100 mg capsule 100 mg PO DAILY #60 caps 11/22/24 fluticasone fur. 100 mcg-umeclid 1 inh inhalation DAILY #60 ea 11/22/24 62.5 mcg-vilant 25 mcg inhalat.powder (Trelegy Ellipta) hydrocodone 10 mg-acetaminophen 1 tab PO Q8H PRN pain #90 tabs 11/23/24 325 mg tablet hydrocortisone-aloe vera 1 % 1 applic topical TID PRN skin 11/23/24 topical cream (Anti-Itch irritation #28 grams (hydrocortisone) with Aloe) fluticasone propionate 50 1 spray intranasal DAILY #16 grams 11/29/24 mcg/actuation nasal spray,suspension doxycycline hyclate 100 mg capsule 100 mg PO BID 7 days #14 caps 12/07/24 Allergies Allergy/AdvReac Type Severity Reaction Status Date / Time lidocaine Allergy Intermediate Red, Rash, Verified 11/22/24 15:54 Itching codeine (CODEINE) Allergy Unknown VOMITING Verified 11/22/24 15:54 erythromycin base Allergy Unknown ITCHING/HIV Verified 11/22/24 15:54 (ERYTHROMYCIN BASE) ES Penicillins (PENICILLINS) Allergy Unknown VOMITING Verified 11/22/24 15:54 ibuprofen Allergy Hives Verified 11/22/24 15:54 tramadol AdvReac Hives Verified 11/22/24 15:54 PFSH <Sarah Mason DO - Last Filed: 12/07/24 00:28> [facility] Disclaimer: The information contained in this section may have been updated after the patient was seen, as this information can be updated by other users. Medical History Rheumatic arteritis COPD (chronic obstructive pulmonary disease) Hyperlipidemia History of ovarian cancer Colon cancer LGSIL Pap smear of vagina Back pain Bilateral pendulous breasts Feeling of incomplete bladder emptying Encounter for pre-operative cardiovascular clearance Chest tightness Daytime somnolence Abnormal electrocardiography Dyspnea Lumbar disc disease with radiculopathy Surgical History History of cranial surgery Hx of neck surgery History of hysterectomy History of cholecystectomy Family History Other Anemia Asthma Cancer Coronary artery disease Diabetes Family history of bronchitis Family history of myocardial infarction Family history of stroke Heart attack Hyperlipidemia Hypertension Kidney disease Stroke Thyroid disorder Social History Smoking Status: Current every day smoker second hand exposure: No alcohol intake: current alcohol intake frequency: a few times a week substance use type: denies use current occupational status: disabled Travel in the last 8 weeks?: None household members: none housing: house lives independently: Yes marital status: single number of children: 3 education level: high school current occupational exposures/hazards: No caffeine: No special christopher needs: No agree to transfusion: No do you feel safe at home: Yes victim of physical abuse: No victim of emotional abuse: No victim of sexual abuse: No would you like helpful sources: No Have you lived/traveled outside [place] in past 30 days?: No Contact w/someone who lives/traveled outside US past 30 days?: No Exposure to someone with infectious disease in past 14 days?: No Do you have a fever (greater than 100.4 F or 38 C)?: No Have you tested positive for COVID-19?: No Exposed to someone with COVID-19 in past 14 days?: No Do you have a sore throat?: No Do you have a cough?: No Do you have any weakness?: No Do you have any diarrhea?: No Are you experiencing any unusual bleeding?: No Do you have any muscle aches/pain?: No Do you have any abdominal pain?: No Are you experiencing loss of taste or smell?: No Other Medical History Have you received the Flu Vaccine for this season: No Have you received the Pneumonia Vaccine: No <Sarah Mason DO - Last Filed: 12/07/24 00:28> ROS Obtained: Yes All systems reviewed & no additional complaints except as documented Physical Exam <Sarah Mason DO - Last Filed: 12/07/24 00:28> General General appearance: alert Comment: Crying, hysterical, not cooperative Head Head exam: atraumatic and normocephalic Eye Eye exam: Present normal appearance, PERRL and EOMI ENT ENT exam: Present normal exam, normal oropharynx, mucous membranes moist and normal external ear exam Neck Neck exam: Present normal inspection, full ROM and trachea midline; Absent tenderness Chest Chest inspection: Present normal inspection and symmetric chest wall rise; Absent tenderness Respiratory Respiratory exam: Present normal lung sounds bilaterally; Absent respiratory distress, wheezes, stridor or accessory muscle use Cardiovascular Cardiovascular exam: Present regular rate and normal rhythm Abdominal Exam Abdominal exam: Present soft; Absent distention, tenderness or guarding Extremities Exam Extremities exam: Present normal inspection, full ROM and normal capillary refill; Absent tenderness or edema Back Exam Back exam: Present normal inspection and full ROM; Absent tenderness Neurological Exam Neurological exam: Present alert, CN II-XII intact, normal gait and other (No obvious focal neurologic deficits on assessment. She does not answer orientation questions despite being asked); Absent motor sensory deficit Psychiatric Psychiatric exam: Present agitated and anxious Skin Skin exam: Present warm and dry Medical Decision Making <Sarah Mason DO - Last Filed: 12/07/24 00:28> Medical Records Medical records reviewed: Yes I reviewed the patient's medical records. Screening: Per USPSTF and CDC recommendations, given the prevalence of disease in our region, it is our hospital?s policy to screen for HIV and viral Hepatitis for all patients aged 18 and over and those with ongoing risk factors. [place] Inquiry Pt receiving controlled substance: No Vital Signs: 12/06/24 21:06 12/06/24 22:00 12/06/24 22:31 Temperature 98.8 F Temperature Source Oral Pulse Rate 94 H 90 Pulse Rate [Radial] 107 H Respiratory Rate 20 15 19 Blood Pressure 123/75 126/72 Blood Pressure [Right Arm] 133/96 H Blood Pressure Mean [Right Arm] 108 Blood Pressure Position [Right Arm] Sitting 02 Sat by Pulse Oximetry 98 94 L 100 Oxygen Delivery Method Room Air 12/07/24 02:01 Temperature 97.9 F Temperature Source Oral Pulse Rate 86 Pulse Rate [Radial] Respiratory Rate 15 Blood Pressure 129/70 Blood Pressure [Right Arm] Blood Pressure Mean [Right Arm] Blood Pressure Position [Right Arm] 02 Sat by Pulse Oximetry Oxygen Delivery Method Room Air Lab Data Lab results reviewed: Yes I reviewed the patient's lab results. Lab Results 12/06/24 21:08: WBC 8.4, RBC 4.30, Hgb 12.8, Hct 38.7, MCV 90.0, MCH 29.8, MCHC 33.1, RDW 15.0, Plt Count 384, MPV 9.0, Neut % (Auto) 33.2 L, Lymph % (Auto) 60.8 H, [place] % (Auto) 4.7, Eos % (Auto) 0.6, Baso % (Auto) 0.6, Neut # (Auto) 2.8, Lymph # (Auto) 5.1 H, [place] # (Auto) 0.4, Eos # (Auto) 0.1, Baso # (Auto) 0.1, Total Counted 100, Neutrophils % (Manual) 33 L, Lymphocytes % (Manual) 64 H , Monocytes % (Manual) 1 L, Basophils % (Manual) 2.0 H, Platelet Estimate Normal, Stomatocytes 1+, PT 10.2, INR 0.90, APTT 24.8 12/06/24 21:11: Sodium 133 L, Potassium 5.2 H, Chloride 100, Carbon Dioxide 14 L , Anion Gap 24.2 H, BUN 5 L, Creatinine 0.60, Estimated Creat Clear 119, Estimated GFR 105, Est GFR ( Amer) 127, Glucose 99, Calcium 9.7, Total Bilirubin 1.2, AST 87 H, ALT 26, Alkaline Phosphatase 131 H, Total Creatine Kinase 208 H, Troponin I 0.01, Total Protein 8.2, Albumin 5.4 H, Globulin 2.8, A lbumin/Globulin Ratio 1.9 H, Triglycerides 99, Cholesterol 242 H, LDL Cholesterol Direct 97.53 L, VLDL Cholesterol 20, HDL Cholesterol 118 H, Cholesterol/HDL Ratio 2.1, TSH 2.08, Thyroxine (T4) 7.4, Plasma/Serum Alcohol 225 H 12/06/24 21:14: VBG pH 7.30 L, VBG pCO2 42.6, VBG pO2 51.6 H, VBG HCO3 20.5 L, V BG Total CO2 21.8 L, VBG O2 Saturation 79.0 H, VBG Base Excess -5.9 L, VBG Lactic Acid 2.3 H 12/06/24 21:47: Phosphorus 4.2, Magnesium 1.8, Urine Color Yellow, Urine Appearance Clear, Urine pH 6.0, Ur Specific [place] <= 1.005, Urine Protein Negative, Urine Glucose (UA) Negative, Urine Ketones Negative, Urine Blood Negative, Urine Nitrate Negative, Urine Bilirubin Negative, Urine Urobilinogen 0.2, Ur Leukocyte Esterase 1+ A, Urine RBC Occasional, Urine WBC 5-10, Ur Squamous Epith Cells Occasional, Urine Bacteria 3+, Urine Opiates Screen Positive H, Urine Methadone Screen Negative, Ur Barbituates Screen Negative, Ur Phencyclidine Scrn Negative, Ur Amphetamines Screen Negative, U Benzodiazepines Scrn Negative, Urine Cocaine Screen Negative, U Marijuana (THC) Screen Negative 12/06/24 21:08 12/06/24 21:11 Orders (Tests/Meds): ED MEDICATIONS Discontinued Medications Generic Name Dose Route Start Last Admin Trade Name Jody PRN Reason Stop Dose Admin Doxycycline Hyclate 100 mg 12/07/24 00:27 12/07/24 00:45 Doxycycline Hycl 100 Mg Tablet PO 12/07/24 00:28 100 mg ONCE ONE Administration Lactated Ringer's 1,000 mls @ 999 mls/hr 12/06/24 21:30 12/06/24 21:50 Lactated Ringer's 1000 Ml Bag IV 12/06/24 22:30 999 mls/hr .Q1H1M ONE Administration Ketorolac Tromethamine 15 mg 12/06/24 21:42 12/06/24 21:50 Ketorolac 30mg/Ml Vial IV 12/06/24 21:43 15 mg ONCE ONE Administration Lidocaine 1 each 12/06/24 21:42 12/06/24 21:54 Lidocaine 5% Transdermal Patch TD 12/06/24 21:43 Not Given ONCE ONE Sodium Chloride 10 ml 12/06/24 21:11 Sodium Chloride 0.9% 10ml Flush Syringe IV 01/05/25 21:10 NEEDED PRN Maintain IV Site ORDERS Category Date Time Status CT head/brain wo con Stat Cat Scan 12/06/24 21:11 Completed Activated Partial Thrombo Time Stat Lab 12/06/24 21:08 Completed CK [Creatine Kinase] Stat Lab 12/06/24 21:11 Completed Complete Blood Count Auto Diff Stat Lab 12/06/24 21:08 Completed Comprehensive Metabolic Panel Stat Lab 12/06/24 21:11 Completed Drug Screen,Urine Stat Lab 12/06/24 21:47 Completed Ethyl Alcohol Stat Lab 12/06/24 21:11 Completed Lipid Panel Stat Lab 12/06/24 21:11 Completed MAG [Magnesium] Stat Lab 12/06/24 21:47 Completed PHOS [Phosphorous] Stat Lab 12/06/24 21:47 Completed Prothrombin Time INR Stat Lab 12/06/24 21:08 Completed T4 (Thyroxine) Stat Lab 12/06/24 21:11 Completed TSH [Thyroid Stimulating Hormone] Stat Lab 12/06/24 21:11 Completed Troponin I Stat Lab 12/06/24 21:11 Completed Urinalysis and Microscopic Stat Lab 12/06/24 21:47 Completed Urine Culture Stat Micro 12/06/24 21:47 Received VBG [Venous Blood Gas] Stat RT 12/06/24 21:14 Completed ECG Data Tracing #1: I reviewed this ECG and interpreted as documented below: Some motion artifact given the patient's crying and tremulousness. Normal sinus rhythm with a ventricular rate of 92 bpm. No acute STEMI ECG initial impression date: 12/06/24 ECG initial impression time: 21:50 Medical Decision Narrative: In summary, this patient is a 54-year-old female presenting to the Emergency Department for evaluation of altered mental status, EMS concern for possible stroke. Differential diagnoses considered include but are not limited to CVA, alcohol intoxication, UTI, metabolic encephalopathy, psychiatric disturbance. Ruling out the most morbid conditions drove assessment. It should be noted patient's history includes alcohol abuse which likely is not at goal therapy. This complicates all aspects of care by increasing patient's risk for morbidity. I reviewed patient's past medical records and noted prior GI and PCP evaluation. On exam, the patient is anxious appearing, tremulous, crying hysterically not answering questions directly, however she does communicate fluently in full sentences when asked clarification questions, such as confirming that she drink alcohol and confronting her about positive ethanol level on labs. She has no focal neurologic deficits on exam, moving all 4 extremities equally and actively resisting attempted passive range of motion of her upper and lower extremities. workup included stroke CT scans, broad lab evaluation to evaluate for infectious, metabolic derangements. I independently interpreted CT scan prior to the radiologist read and noted no intracranial hemorrhage, no intracranial mass. Please see their read for final interpretation. I had an indirect discussion with the radiologist who recommended they were negative for stroke. I do not feel that her current presentation is consistent with stroke. Labs were obtained that demonstrated reassuring CBC with no significant leukocytosis or anemia, chemistry demonstrates a mild lactic acidosis and mild hyperkalemia and hyponatremia. Her ethanol level is 225 and she is positive for opiates on her drug screen.. On multiple subsequent reassessments, she has had gradual improvement in her mental status and symptoms and has no focal neurologic deficits. I feel her symptoms are likely manifestation of her alcohol and medication use. I signed out care of patient to Dr. Parra pending reassessments and dispo. <Joaquin Parra MD - Last Filed: 12/07/24 06:37> Vital Signs: 12/06/24 21:06 12/06/24 22:00 12/06/24 22:31 Temperature 98.8 F Temperature Source Oral Pulse Rate 94 H 90 Pulse Rate [Radial] 107 H Respiratory Rate 20 15 19 Blood Pressure 123/75 126/72 Blood Pressure [Right Arm] 133/96 H Blood Pressure Mean [Right Arm] 108 Blood Pressure Position [Right Arm] Sitting 02 Sat by Pulse Oximetry 98 94 L 100 Oxygen Delivery Method Room Air 12/07/24 02:01 Temperature 97.9 F Temperature Source Oral Pulse Rate 86 Pulse Rate [Radial] Respiratory Rate 15 Blood Pressure 129/70 Blood Pressure [Right Arm] Blood Pressure Mean [Right Arm] Blood Pressure Position [Right Arm] 02 Sat by Pulse Oximetry Oxygen Delivery Method Room Air Lab Data Lab Results 12/06/24 21:08: WBC 8.4, RBC 4.30, Hgb 12.8, Hct 38.7, MCV 90.0, MCH 29.8, MCHC 33.1, RDW 15.0, Plt Count 384, MPV 9.0, Neut % (Auto) 33.2 L, Lymph % (Auto) 60.8 H, [place] % (Auto) 4.7, Eos % (Auto) 0.6, Baso % (Auto) 0.6, Neut # (Auto) 2.8, Lymph # (Auto) 5.1 H, [place] # (Auto) 0.4, Eos # (Auto) 0.1, Baso # (Auto) 0.1, Total Counted 100, Neutrophils % (Manual) 33 L, Lymphocytes % (Manual) 64 H , Monocytes % (Manual) 1 L, Basophils % (Manual) 2.0 H, Platelet Estimate Normal, Stomatocytes 1+, PT 10.2, INR 0.90, APTT 24.8 12/06/24 21:11: Sodium 133 L, Potassium 5.2 H, Chloride 100, Carbon Dioxide 14 L , Anion Gap 24.2 H, BUN 5 L, Creatinine 0.60, Estimated Creat Clear 119, Estimated GFR 105, Est GFR ( Amer) 127, Glucose 99, Calcium 9.7, Total Bilirubin 1.2, AST 87 H, ALT 26, Alkaline Phosphatase 131 H, Total Creatine Kinase 208 H, Troponin I 0.01, Total Protein 8.2, Albumin 5.4 H, Globulin 2.8, A lbumin/Globulin Ratio 1.9 H, Triglycerides 99, Cholesterol 242 H, LDL Cholesterol Direct 97.53 L, VLDL Cholesterol 20, HDL Cholesterol 118 H, Cholesterol/HDL Ratio 2.1, TSH 2.08, Thyroxine (T4) 7.4, Plasma/Serum Alcohol 225 H 12/06/24 21:14: VBG pH 7.30 L, VBG pCO2 42.6, VBG pO2 51.6 H, VBG HCO3 20.5 L, V BG Total CO2 21.8 L, VBG O2 Saturation 79.0 H, VBG Base Excess -5.9 L, VBG Lactic Acid 2.3 H 12/06/24 21:47: Phosphorus 4.2, Magnesium 1.8, Urine Color Yellow, Urine Appearance Clear, Urine pH 6.0, Ur Specific [place] <= 1.005, Urine Protein Negative, Urine Glucose (UA) Negative, Urine Ketones Negative, Urine Blood Negative, Urine Nitrate Negative, Urine Bilirubin Negative, Urine Urobilinogen 0.2, Ur Leukocyte Esterase 1+ A, Urine RBC Occasional, Urine WBC 5-10, Ur Squamous Epith Cells Occasional, Urine Bacteria 3+, Urine Opiates Screen Positive H, Urine Methadone Screen Negative, Ur Barbituates Screen Negative, Ur Phencyclidine Scrn Negative, Ur Amphetamines Screen Negative, U Benzodiazepines Scrn Negative, Urine Cocaine Screen Negative, U Marijuana (THC) Screen Negative Orders (Tests/Meds): ED MEDICATIONS Discontinued Medications Generic Name Dose Route Start Last Admin Trade Name Jody PRN Reason Stop Dose Admin Doxycycline Hyclate 100 mg 12/07/24 00:27 12/07/24 00:45 Doxycycline Hycl 100 Mg Tablet PO 12/07/24 00:28 100 mg ONCE ONE Administration Lactated Ringer's 1,000 mls @ 999 mls/hr 12/06/24 21:30 12/06/24 21:50 Lactated Ringer's 1000 Ml Bag IV 12/06/24 22:30 999 mls/hr .Q1H1M ONE Administration Ketorolac Tromethamine 15 mg 12/06/24 21:42 12/06/24 21:50 Ketorolac 30mg/Ml Vial IV 12/06/24 21:43 15 mg ONCE ONE Administration Lidocaine 1 each 12/06/24 21:42 12/06/24 21:54 Lidocaine 5% Transdermal Patch TD 12/06/24 21:43 Not Given ONCE ONE Sodium Chloride 10 ml 12/06/24 21:11 Sodium Chloride 0.9% 10ml Flush Syringe IV 01/05/25 21:10 NEEDED PRN Maintain IV Site ORDERS Category Date Time Status CT head/brain wo con Stat Cat Scan 12/06/24 21:11 Completed Activated Partial Thrombo Time Stat Lab 12/06/24 21:08 Completed CK [Creatine Kinase] Stat Lab 12/06/24 21:11 Completed Complete Blood Count Auto Diff Stat Lab 12/06/24 21:08 Completed Comprehensive Metabolic Panel Stat Lab 12/06/24 21:11 Completed Drug Screen,Urine Stat Lab 12/06/24 21:47 Completed Ethyl Alcohol Stat Lab 12/06/24 21:11 Completed Lipid Panel Stat Lab 12/06/24 21:11 Completed MAG [Magnesium] Stat Lab 12/06/24 21:47 Completed PHOS [Phosphorous] Stat Lab 12/06/24 21:47 Completed Prothrombin Time INR Stat Lab 12/06/24 21:08 Completed T4 (Thyroxine) Stat Lab 12/06/24 21:11 Completed TSH [Thyroid Stimulating Hormone] Stat Lab 12/06/24 21:11 Completed Troponin I Stat Lab 12/06/24 21:11 Completed Urinalysis and Microscopic Stat Lab 12/06/24 21:47 Completed Urine Culture Stat Micro 12/06/24 21:47 Received VBG [Venous Blood Gas] Stat RT 12/06/24 21:14 Completed Medical Decision Narrative: In summary, this patient is a 54-year-old female presenting to the Emergency Department for evaluation of altered mental status, EMS concern for possible stroke. Differential diagnoses considered include but are not limited to CVA, alcohol intoxication, UTI, metabolic encephalopathy, psychiatric disturbance. Ruling out the most morbid conditions drove assessment. It should be noted patient's history includes alcohol abuse which likely is not at goal therapy. This complicates all aspects of care by increasing patient's risk for morbidity. I reviewed patient's past medical records and noted prior GI and PCP evaluation. On exam, the patient is anxious appearing, tremulous, crying hysterically not answering questions directly, however she does communicate fluently in full sentences when asked clarification questions, such as confirming that she drink alcohol and confronting her about positive ethanol level on labs. She has no focal neurologic deficits on exam, moving all 4 extremities equally and actively resisting attempted passive range of motion of her upper and lower extremities. workup included stroke CT scans, broad lab evaluation to evaluate for infectious, metabolic derangements. I independently interpreted CT scan prior to the radiologist read and noted no intracranial hemorrhage, no intracranial mass. Please see their read for final interpretation. I had an indirect discussion with the radiologist who recommended they were negative for stroke. I do not feel that her current presentation is consistent with stroke. Labs were obtained that demonstrated reassuring CBC with no significant leukocytosis or anemia, chemistry demonstrates a mild lactic acidosis and mild hyperkalemia and hyponatremia. Her ethanol level is 225 and she is positive for opiates on her drug screen.. On multiple subsequent reassessments, she has had gradual improvement in her mental status and symptoms and has no focal neurologic deficits. I feel her symptoms are likely manifestation of her alcohol and medication use. I signed out care of patient to Dr. Parra pending reassessments and dispo. Parra: Upon my assumption of care patient is stable, resting comfortably. She has other various complaints upon my assessment stating that her ears hurt and that she has had multiple tick bites. I evaluated all the alleged tick bites which do not demonstrate any findings of cellulitis, abscess, or other infection. There is no evidence of erythema migrans or other rash on the patient's skin. She reports that she has had recurrent tick bites and is concerned about tickborne illness because she has weird random symptoms. I also evaluated her bilateral ears which demonstrate no pain with manipulation of the auricle, normal tympanic membranes bilaterally, no lymphadenopathy. Patient is a GCS 15, NIH 0, she is clinically sober. With her concerns for tick bites and other random symptoms, I did treat with doxycycline and gave the patient a prescription for this since she removed another tick tonight though I do have low suspicion for tickborne illness at this time. Since patient is clinically sober, alert, oriented, tolerating oral intake, independently ambulatory, I believe she is appropriate for discharge at this time. Patient was given instructions on symptomatic management and monitoring including counseling on avoiding illicit substances, medication use, follow up instructions, and return precautions for the emergency department. Patient indicated understanding and was discharged in stable condition. Critical Care <Sarah Mason, DO - Last Filed: 12/07/24 00:28> Critical Care Time Critical Care Time: Yes Attestation: On 12/06/24, the high probability of a clinically significant, sudden or life threatening deterioration of the following system(s) required my full and direct attention, intervention and personal management. The time I documented below is in addition to time spent performing reported procedures but includes the following listed in this critical care notation. Total Time Total Critical Care Time: 35
--- NOTE | 2024-12-07 00:25 | PC.NURSE ---
ed provider at the bedside.
--- NOTE | 2024-12-07 00:42 | PC.NURSE ---
Attempting to contacting [facility] for transportation home, no answer with voicemail left.
[2024-12-07] MEDS: DOXYCYCLINE HYCL 100 MG TABLET PO (00:45)
[2024-12-07 01:39] LABS: Reflex Lactic Add Lactic Reflex
[2024-12-07 02:01] VITALS: BP 129/70; PULSE 86; RESP 15; TEMP 36.6; O2SAT 98
--- NOTE | 2025-01-05 09:03 | PC.NURSE ---
Urine culture results reviewed by Dr. Hernandez. No new orders received.
== END 2024-12-07 02:20 | disposition home or self-care (01) ==
PROVIDERS: Emergency Medicine; Emergency Provider Emergency Medicine
DX: F10.129 Alcohol abuse with intoxication, unspecified (principal); F11.90 Opioid use, unspecified, uncomplicated; F17.210 Nicotine dependence, cigarettes, uncomplicated; W57.XXXA Bitten or stung by nonvenomous insect and other nonvenomous arthropods, initial encounter; Y90.8 Blood alcohol level of 240 mg/100 ml or more
CPT/HCPCS: 70450; 80053; 80061; 80307; 80320; 81001; 82550; 82803; 83735; 84100; 84436; 84443; 84484; 85007; 85025; 85027; 85610; 85730; 87077; 87086; 87088; 93005; 96361; 96374; 99285; J1885; J7120

== ENCOUNTER 2025-01-16 09:36 | Outpatient (CLI) | payer MEDICAID, SELFPAY ==
[2025-01-16 14:10] LABS: Alanine Aminotransferase 20 U/L (12-78); Albumin Level 4.8 g/dl (3.5-5.0); Albumin/Globulin Ratio 1.4 (1.1-1.8); Alkaline Phosphatase 97 U/L (38-126); Anion Gap 16.7 mEq/L (5-15); Aspartate Amino Transferase 41 U/L (14-36); Bilirubin,Total 0.6 mg/dl (0.2-1.3); Blood Urea Nitrogen 9 mg/dl (7-17); Calcium 10.8 mg/dl (8.4-10.2); Carbon Dioxide 26 mmol/L (22.0-30.0); Chloride 95 mmol/L (98-107); Estimated Glomerular Filt Rate 88 ml/min (>60); GFR (African American) 106 ML/MIN (>60); Globulin 3.4 g/dL (1.3-3.2); Glucose 104 mg/dl (74-100); Potassium 4.7 mmoL/L (3.5-5.1); Sodium 133 mmol/L (136-145); Total Protein,Serum 8.2 g/dl (6.3-8.2)
[2025-01-16 14:11] LABS: Ethyl Alcohol 72 mg/dl (0-10)
--- OUTSIDE RECORDS SUMMARY | 2025-01-18 09:40 | XMS_ITS | Encounter Summary ---
Author Organization Healthcare Address [address] [place] [address] Care Team Providers Care Practical Nursing Teacher Name Role Phone Perry Hicks MD Primary Care Provider + [phone] Renard Garcia MD Unavailable [phone] Yohana Aragon DO Unavailable [phone] Yvette Velarde SOFTWARE IMPLEMENTATION PROJECT MANAGER Unavailable [phone] Pcp, No Primary Care Provider Unavailabl Carolina Lawrence FISH CLEANER Unavailable Unavailable Encounter Details Date Type Department Care Team (Late st Contact Info) Description 11/01/2022 Lab Requisition [facility] [address] [place] [address] Santiago England MD [address] [facility] [address] [place] [address] Atypical squamous cells of undetermined significance on cytologic smear of cervix (ASC-US) Social History Tobacco Use Types Packs/Day Years Used Date Smoking Tobacco: Every Day Cigarettes Smokeless Tobacco: Current Chew, Snuff Alcohol Use Standard Drinks/Week Comments Yes 3 (1 standard drink = 0.6 oz pure alcohol) heavy daily consumption of ETOH Comments No Sex and Gender Information Value Date Recorded Sex Assigned at Not on file Legal Sex Female 8:04 PM EDT Gender Identity Not on file Sexual Orientation Not on file COVID-19 Exposure Response Date Recorded In the last 10 days, have yo u been in contact with someone who was confirmed or suspected to have Coronavirus/COVID-19? No / Unsure 11/02/2022 2:07 PM EDT documented as of this encounter Plan of Treatment Not on file documented as of this encounter Procedures Procedure Name Priority Date/Time Associated Diagnosis Comments SURGICAL PATHOLOGY CONSULT Routine 11/01/2022 12:43 PM EDT Atypical squamous cells of undetermined significance on cytologic smear of cervix (ASC-US) documented in this encounter Results * Surgical Pathology Consult (11/01/2022 12:43 PM EDT) Case Report Sugical Pathology Consult Case: [id number] Authorizing Provider: Santiago England MD Collected: 11/01/2022 1243 Ordering Location: [facility] Lab Received: 11/01/2022 1243 Pathologist: Namrata Travis MD Specimen: Vaginal, [id number] 11/04/2022 9:18 AM EDT [facility] Final Diagnosis A. VAGINAL CUFF, 3:00 AND 9:00, BIOPSIES (OUTSIDE SLIDES [id number], 10/06/22): - FRAGMENTS OF PREDOMINANTLY CERVICAL STROMA WITH MINUTE FRAGMENTS OF CAUTERIZED SQUAMOUS EPITHELIUM - NO EVIDENCE OF HIGH GRADE DYSPLASIA OR CARCINOMA 11/04/2022 9:18 AM EDT [facility] at 0918 EDT Comment There is minimal intact epithelium available for review. Therefore these findings may not be termite control representative of the mucosal process. Clinical correlation, with potential rebiopsy, is suggested. 11/04/2022 9:18 AM EDT [facility] Clinical Information R87.610 - Atypical squamous cells of undetermined significance on cytologic smear of cervix (ASC-US) [ICD-10-CM] 11/04/2022 9:18 AM EDT [facility] Gross Description A. [id number] Received along with a corresponding pathology report from [facility] are 2 slide(s) labeled outside case: [id number] collected on 10/06/2022. 11/04/2022 9:18 AM EDT [facility] Note: A resident was involved in the service. I attest I examined the relevant preparations for the specimens and confirmed the diagnosis or interpretation. 11/04/2022 9:18 AM EDT [facility] Tissue Vaginal structure / Unknown 11/01/2022 12:43 PM EDT 11/01/2022 12:43 PM EDT us Santiago England MD LAB PATHOLOGY ORDERABLES Final Result [facility] [address] [place] [address] documented in this encounter Visit Diagnoses Diagnosis Atypical squamous cells of undetermined significance on cytologic smear of cervix (ASC-US) documented in this encounter Additional Health Concerns Infection Onset Date Last Indicated Resolved Time COVID-19 Rule-Out 09/06/2024 09/06/2024 09/07/2024 12:40 AM EST Assessment Noted Time A fall risk assessment has been complete d for the patient 01/06/2022 3:16 PM EDT documented as of this encounter Care Teams Practical Nursing Teacher Relationship Specialty Start Date End Date Perry Hicks MD [address] [place] [address] PCP - General 12/05/20 11/09/23 Pcp, No [address] [place] [address] PCP - General Family Medicine 11/10/23 Renard Garcia MD [address] [place] [id number] Surgeon Neurosurgery 11/25/21 Yohana Aragon DO [address] [place] [address] Obstetrics and Gynecology 10/22/22 Yvette Velarde APRN [address] [place] [address] Nurse Practitioner Neurosurgery 11/10/23 Carolina Aquino LPN [employer] [place] [address] TCM Nurse 09/13/24 10/12/24 documented as of this encounter
--- OUTSIDE RECORDS SUMMARY | 2025-01-18 09:40 | XMS_ITS | Data Portability ---
Author Organization [place] - [facility] [place] [facility] [place] Address [address] [place] [phone] Assessment No assessment recorded. Plan of Treatment Reminders Order Date Submit Date Provider Last Modified By Organization Details Last Modified Time Details Appointments None recorded. Lab culture, urine + sensitivity 2022 023 [email or web address] Not available 3 08:03:01 urinalysis, dipstick 2022 023 [email or web address] [facility] [address], [address], 3 12:39:47 Referral None recorded. Procedures bladder scan (PROC) 2022 023 [email or web address] Not available 3 09:54:20 Surgeries None recorded. Imaging None recorded. Medication Orders Myrbetriq 50 mg tablet,exte nded release 2022 023 [email or web address] [facility], [address] [place] [address] [place], [id number], 3 16:51:53 Patient TargetsNo targets recorded. Patient InstructionsNo instructions recorded. Reason for Referral None Reported. Results Created Date Observation Date Name Description Value Unit Range Abnormal Flag Note LastModifiedBy Organization Detail LastModifiedTime 11/04/19 23 11/03/2022 CULTU RE URINE results LT 11-04 729 >100, 000 COL/M L Gram Negat edvin Rods Not Available [facility] (Lab Registration) [address] , [place], [address], 11/04/2022 07:30:58 11/04/19 23 11/03/2022 CULTU RE URINE note Unles s other ovalles noted testi ng perfo rmed at: [facility] [address] [facility] [place] [address] [phone] Juliocesar whitten MD CLIA: [id number] Not Available [facility] (Lab Registration) [address] [facility] [place], [address], 11/04/2022 07:30:58 11/04/19 23 11/03/2022 CULTU RE URINE culccur ===== ===== ===== ===== ===== ===== ===== ===== ===== ===== ===== ===== ===== ===== ===== ===== ===== ===== ===== ===== ===== ===== ===== ===== Speci men NO.: [id number] Exam Statu s: Final Proce dure: CULTU RE URINE ===== ===== ===== ===== ===== ===== ===== ===== ===== ===== ===== ===== ===== ===== ===== ===== ===== ===== ===== ===== ===== ===== ===== ===== Iso/R esult : 01 Esche abdulaziz a coli Antim icrob ic/Do se JOSSY Syste jossy Urine __ ___ ___ Ampic illin <=8 S S Amp/S ulbac nascimento <=8/4 S S Aztre onam <=4 S S Cefaz jose <=2 S S Cefep ted <=2 S S Cefot axime <=2 S S Cefox itin <=8 S S Cefta zidim e <=1 S S Ceftr iaxon e <=1 S S Cefur oxime <=4 S S Cipro floxa vito <=1 S S Ertap enem <=0.5 S S Genta micin <=4 S S Levof loxac in <=2 S S Merop enem <=1 S S Nitro furan toin <=32 S S Pip/T azo <=16 S S Tetra cycli ne <=4 S S Tobra mycin <=4 S S Trime th/Dorman lfa <=2/3 8 S S LT 11-04 729 >100, 000 COL/M L Gram Negat edvin Rods Not Available [facility] (Lab Registration) [address] , [place], [address], 11/05/2022 06:52:44 11/04/1911/03/2022 CULTU RE URINE note Unles s other ovalles noted testi ng perfo rmed at: [facility] [address] [place] [address] [phone] Juliocesar whitten MD CLIA: [id number] Not Available [facility] (Lab Registration) [address] , [place], [address], 11/05/2022 06:52:44 11/04/1911/03/2022 urina lysis , dipst ick Leukocytes (reference range) trace Not Available [facility] [address], [address], 11/03/2022 12:28:58 11/04/19 23 11/03/2022 urina lysis , dipst ick Nitrite (reference range:) positi ve Not Available [facility] [address] [address] [place], [address], 11/03/2022 12:28:58 11/04/19 23 11/03/2022 urina lysis , dipst ick Urobilinogen (reference range) 1 Not Available [address], [address], 11/03/2022 12:28:58 11/04/19 23 11/03/2022 urina lysis , dipst ick Protein (reference range) negati ve Not Available [address], [address], 11/03/2022 12:28:58 11/04/19 23 11/03/2022 urina lysis , dipst ick pH (reference range 5-8.5) 5.5 Not Available [address], [address], 11/03/2022 12:28:58 11/04/19 23 11/03/2022 urina lysis , dipst ick Blood (reference range:) negati ve Not Available [address], [address], 11/03/2022 12:28:58 11/04/19 23 11/03/2022 urina lysis , dipst ick Specific [place] (reference range) 1.025 Not Available [address], [address], 11/03/2022 12:28:58 11/04/19 23 11/03/2022 urina lysis , dipst ick Ketone (reference range) negati ve Not Available [address], [address], 11/03/2022 12:28:58 11/04/19 23 11/03/2022 urina lysis , dipst ick Bilirubin (reference range) negati ve Not Available [address], [address], 11/03/2022 12:28:58 11/04/19 23 11/03/2022 urina lysis , dipst ick Glucose (reference range) negati ve Not Available [facility] [address], [place], [address], 11/03/2022 12:28:58 Result Notes None recorded. Problems Name Problem SNOMED Code Status Onset Date Resolution Date Notes Provider Name and Address Organization Details Recorded Time Bilateral pendulous breasts 4468127824967 9103 Active 2022 Shaniqua merritt, REX - [facility] [place] [facility] [place] 3 08:47:11 Chronic back pain 451695381 Active 2022 Shaniqua merritt, REX - [facility] [place] 3 08:47:21 Daytime somnolence 872808861145 Active 2022 Rommelyusuf merritt, REX - [facility] [place] [facility] [place] 3 08:47:58 Dyspnea 527857126 Active 2022 Shaniqua merritt, REX - [facility] [place] 3 08:48:05 Incomplete emptying of urinary bladder 248552887 Active 2022 Shaniqua merritt, REX - [facility] [place] 3 08:48:19 Problem Notes None recorded. Procedures Surgical History Date Name Laterality Status Provider Name and Address Organization Details Recorded Time Total Hysterectomy completed Lori GOODMAN - [facility] [place] [facility] [place] 10/13/2022 16:23:23 cholecystectomy completed Shaniqua GOODMAN - [facility] [place] 10/13/2022 16:23:30 excision of neck completed Shaniqua Valente [facility] [place] [facility] [place] 10/13/2022 16:23:40 cervical biopsy completed Shaniqua GOODMAN - [facility] [place] [facility] [place] 10/13/2022 16:23:58 Imaging Results None recorded. Procedure Notes None recorded. Medical Equipment None Reported. Allergies Allergen ID Allergen Name Allergen Category Reaction Reaction Severity Criticality Documentation Date Start Date Code Code System Note Provider Name and Address Organization Details Recorded Time 09616 codeine medicatio n Not available Not available Not available 10/13/2022 2670 RxNorm REX Dominguez [facility] [place] 3 16:22:07 93961 erythromy viot medicatio n Not available Not available Not available 10/13/2022 4053 RxNorm REX Dominguez [facility] [place] 3 16:22:26 02497 Product containin g penicilli n (product) medicatio n Not available Not available Not available 10/13/2022 90177 8001 SNOMED REX Dominguez [facility] [place] 3 16:22:35 Medications Name Sig Start Date Stop Date Status Note LastModified by Organization Details LastModified Time celecoxib 200 mg capsule TAKE ONE CAPSULE BY MOUTH EVERY DAY active Not Available Not Available No t Available promethazine -DM 6.25 mg-15 mg/5 mL oral syrup active Not Available Not Available Not Available doxycycline hyclate 100 mg capsule TAKE 1 CAPSULE BY MOUTH 2 TIMES A DAY FOR 7 DAYS active Not Available Not Available N ot Available loperamide 2 mg capsule TAKE 1 CAPSULE BY MOUTH 4 TIMES DAILY NEEDED FOR 5 DAYS active Not Available Not Available N ot Available atorvastatin 10 mg tablet active Not Available Not Available Not Available azithromycin 250 mg tablet active Not Available Not Available Not Available hydrocodone 5 mg-acetamino phen 325 mg tablet active Not Available Not Available Not Available minocycline 100 mg capsule active Not Available Not Available Not Available promethazine 12.5 mg tablet active Not Available Not Available Not Available clonazepam 0.5 mg tablet TAKE 1 TABLET BY MOUTH ONCE A DAY active Not Available Not Available No t Available sulfamethoxa zole 800 mg-trimethop rim 160 mg tablet active Not Available Not Available Not Available hydrocodone 10 mg-acetamino phen 325 mg tablet TAKE 1 TABLET BY MOUTH EVERY 8 HOURS NEEDED FOR PAIN active Not Available Not Available No t Available omeprazole 40 mg capsule,parveen yed release TAKE 1 CAPSULE BY MOUTH 30 TO 60 MINUTES BEFORE morning meal active Not Available Not Available No t Available tramadol 50 mg tablet active Not Available Not Available No t Available levothyroxin e 25 mcg tablet TAKE ONE TABLET BY MOUTH EVERY MORNING ON AN EMPTY STOMACH active Not Available Not Available No t Available ketorolac 10 mg tablet active Not Available Not Available No t Available oxycodone-ac etaminophen 5 mg-325 mg tablet active Not Available Not Available Not Available methocarbamo l 750 mg tablet active Not Available Not Available Not Available oxycodone-ac etaminophen 10 mg-325 mg tablet TAKE ONE TABLET BY MOUTH EVERY 8 HOURS NEEDED FOR SEVERE pain MAY CAUSE DROWSINESS -do not combine with other opioids- active Not Available Not Available No t Available gabapentin 800 mg tablet active Not Available Not Available Not Available baclofen 10 mg tablet active Not Available Not Available No t Available benzonatate 100 mg capsule TAKE 1 CAPSULE BY MOUTH THREE TIMES DAILY NEEDED FOR cough active Not Available Not Available No t Available hydrocortiso ne 1 % topical cream APPLY TO THE AFFECTED AREA(S) THREE TIMES DAILY NEEDED FOR SKIN irritation active Not Available Not Available N ot Available cephalexin 500 mg capsule active Not Available Not Available Not Available diphenhydram ine 25 mg capsule active Not Available Not Available Not Available promethazine 25 mg tablet TAKE ONE TABLET BY MOUTH EVERY 12 HOURS NEEDED active Not Available Not Available No t Available hydrocortiso ne-aloe vera 1 % topical cream active Not Available Not Available Not Available hydroxyzine HCl 25 mg tablet active Not Available Not Available Not Available mupirocin 2 % topical ointment active Not Available Not Available Not Available ergocalcifer ol (vitamin D2) 1,250 mcg (50,000 unit) capsule active Not Available Not Available Not Available ibuprofen 600 mg tablet active Not Available Not Available Not Available methylpredni solone 4 mg tablets in a dose pack active Not Available Not Available No t Available docusate sodium 250 mg capsule active Not Available Not Available N ot Available brompheniram ine-pseudoep hedrine-DM 2 mg-30 mg-10 mg/5 mL oral syrup active Not Available Not Available Not Available fluticasone propionate 50 mcg/actuatio n nasal spray,suspen martinez INSTILL 1 SPRAY INTO EACH NOSTRIL TWICE DAILY active Not Available Not Available Not Available loratadine 10 mg tablet active Not Available Not Available Not Available Arthricream 10 % topical active Not Available Not Available Not Available oxycodone 5 mg tablet active Not Available Not Available No t Available hydroxyzine pamoate 25 mg capsule active Not Available Not Available N ot Available neomycin-shayna ymyxin-hydro jim 3.5 mg-10,000 unit/mL-1 % ear drops,susp active Not Available Not Available N ot Available cyclobenzapr ine 5 mg tablet active Not Available Not Available Not Available nitrofuranto in monohydrate/ macrocrystal s 100 mg capsule active Not Available Not Available Not Available duloxetine 30 mg capsule,parveen yed release active Not Available Not Available Not Available Pain Relief Extra Strength (acetaminoph en) 500 mg tablet active Not Available Not Available Not Available fenofibrate nanocrystall ized 145 mg tablet TAKE ONE TABLET BY MOUTH ONCE A DAY active Not Available Not Available No t Available cholecalcife rol (vitamin D3) 25 mcg (1,000 unit) tablet active Not Available Not Available Not Available peg 3350-electro lytes 236 gram-22.74 gram-6.74 gram-5.86 gram solution active Not Available Not Available Not Available Eye Itch Relief 0.025 % (0.035 %) drops active Not Available Not Available Not Available cholecalcife rol (vitamin D3) 50 mcg (2,000 unit) tablet active Not Available Not Available Not Available Lubricant Eye (PG-PEG 400) 0.4 %-0.3 % drops active Not Available Not Available Not Available sodium,potas sium,mag sulfates 17.5 gram-3.13 gram-1.6 gram oral soln active Not Available Not Available Not Available Vitamin D3 50 mcg (2,000 unit) capsule active Not Available Not Available Not Available Myrbetriq 50 mg tablet,exten ded release Take 1 tablet every day by oral route. 2022 active Not Available Not Available Not Avai lable Anoro Ellipta 62.5 mcg-25 mcg/actuatio n powder for inhalation INHALE 1 PUFF BY MOUTH ONCE A DAY active Not Available Not Available No t Available naloxone 4 mg/actuation nasal spray active Not Available Not Available Not Available Vitals None Recorded Social History None recorded. Functional Status Question Answer Note LastModified by Organization D etails LastModified Time What is your level of alcohol consumption? None [email or web address] Information not available 10/13/2022 Mental Status None recorded. Family History Nothing Reported. Medical History No medical history recorded. Gynecological HistoryNo gynecological history recorded. Obstetrics History GPAL:G 0 P 0 0 0 0 Past Encounters Encounter ID Performer Location Encounter Start Date Encounter Closed Date Diagnosis/Indication Diagnosis SNOMED-CT Code Diagnosis ICD10 Code Diagnosis Note [id number] Patrick Eugene Jr, MD [facility] [address] [address] 11/03/2022 11:24:55 11/03/2022 12:22:22 Overactive urinary bladder 785578030 N32.81 Patient with urge incontinen ce and wearing 5-6 heavy pads per day. She was placed on oxybutynin 10 mg last year without improvemen t. She is no longer on it. We will treat her with Myrbetriq 50 mg today. We have also discussed refraining from any caffeine use and observing timed voiding every 2-3 hours. Acute urin mame tract infection 427010761 N39.0 patient's urine is nitrite positive today. Prescripti on for Ceftin nerve was given today. We will culture the urine to make sure his sensitive. Health Concerns Section Related Observation LastModified by Organization Detai ls LastModified Time None Recorded Concern Status LastModified by Organization Details LastModified Time None Recorded Advance Directives Directive None Recorded Payers Insurance Date Sequence Insurance Name Policy Number Policy Harrington Covered Member ID Harrington Member ID Guarantor Name 12/11/2024 1 [facility] (MEDICAID HMO) Tonya Kamara [id number] Tonya Kamara Notes Date Note Type Note Provider Name and Address Organization Details Recorded Time 11/03/2022 text/html Patient is a 52-year-old white female referred by her OBGYN for difficulty emptying her bladder. Patient has a history of cervical cancer. I did see her while at [facility] last year for urinary symptoms. She was placed on oxybutynin for urinary incontinence. She states she tried it for 2 months but it did not help. She continues to have urinary incontinence and states she wears 5-6 heavy pads per day. Her bladder scan today indicates she is emptying well with a 30 cc residual. She states her leakage is associated with urgency. She denies significant stress incontinence. Recent vaginal examination by her primary care physician was reviewed and appears within normal limits. Her urinalysis today is nitrite positive. Patrick Eugene Jr, MD [address] [place] [address], [address], [place], [address], [facility] [place] [facility] 11/15/2022 16:53:05 OBGyn Episode No OBEpisode recorded.
--- OUTSIDE RECORDS SUMMARY | 2025-01-18 09:40 | XMS_ITS | Clinical Summary ---
Author Organization Healthcare Address [address] [id number] Care Team Providers Care Pulp Mill Operator Name Role Phone Renard Garcia MD Unavailable [phone] Yohana Aragon DO Unavailable [phone] Yvette Velarde PATHOLOGIST ASSISTANT Unavailable [phone] Pcp, No Primary Care Provider Unavailabl e Allergies Active Allergy Reactions Criticality Noted Date Comments Aspirin Hives,Itching,Swelling High 09/07/2024 Azithromycin Hives,Itching,Swelling High 07/10/2019 Codeine Hives,Itching,Swelling High 07/10/2019 Erythromycin Hives,Itching,Swelling High 11/28/2021 Ibuprofen Hives,Itching,Swelling High 06/20/2024 Iodinated Contrast Media Anaphylaxis High 09/20/2024 Latex Rash Low 11/26/2021 Penicillins Hives,Itching,Swelling High 07/10/2019 Tramadol Hives,Itching,Swelling High 06/20/2024 Medications benzonatate (Tessalon) 100 MG capsule Take 1 capsule (100 mg) by mouth 3 (three) times a day as needed for cough. 2 Active levothyroxine (Synthroid, Levoxyl) 25 MCG tablet Take 1 tablet (25 mcg) by mouth daily before breakfast. 2 Active loperamide (Imodium) 2 MG capsule Take 1 capsule (2 mg) by mouth 4 (four) times a day as needed for diarrhea. 2 Active naloxone (Kloxxado) 8 mg/0.1 mL nasal spray 1. Give 1 spray in nostril for no/slow breathing or cannot wake after opioid use 2. Call 911 3. Repeat in other nostril if symptoms continue 1 each 4 Active albuterol 108 (90 Base) MCG/ACT inhaler Inhale 2 puffs every 4 (four) hours if needed for shortness of breath. 1 each 4 Active atorvastatin (Lipitor) 10 MG tablet 5 Active clonazePAM (KlonoPIN) 0.5 MG tablet Take 1 tablet (0.5 mg) by mouth 3 (three) times a day as needed for anxiety. Active fenofibrate (Tricor) 145 MG tablet 5 Active hydrocortisone 2.5 % cream Apply 1 Application topically as needed for irritation. 5 Active HYDROcodone-errol taminophen (Macon) 10-325 MG tablet Take 1 tablet (10 mg of hydrocodone) by mouth 3 (three) times a day as needed for moderate pain or severe pain. 5 Active brompheniramine -pseudoephedrin e-DM 30-2-10 MG/5ML syrup Take 5 mL by mouth 4 (four) times a day as needed for congestion or cough. 5 Active methocarbamol (Robaxin) 500 MG tablet Take 1 tablet (500 mg) by mouth 4 (four) times a day as needed for muscle spasms for up to 7 days. 28 tablet 5 Active DULoxetine (Cymbalta) [address] capsule Take 1 capsule (30 mg) by mouth daily. Do not crush or chew. 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 Vaginal Pap smear with LGSIL 08/25/2022 Cervical myelopathy with cervical radiculopathy 11/28/2021 Cervical myelopathy 11/25/2021 Overview (11/25/2021): Added automatically from request for surgery [id number] Immunizations Immunization Administration Dates Next Due Hep A / Hep B 07/11/2018 Family History Medical History Relation Name Comments Cardiac disorder Other 1 Diabetes Other 2 Other cancer Other 3 Rheum arthritis Other 4 Relation Name Status Comments Other 1 Other 2 Other 3 Other 4 Social History Tobacco Use Types Packs/Day Years Used Date Smoking Tobacco: Never Smokeless Tobacco: Current Chew, Snuff Tobacco Cessation:Ready to Q uit: Not Asked; Counseling Given: Not Answered Alcohol Use Standard Drinks/Week Comments Not Currently 4 (1 standard drink = 0.6 oz pur e alcohol) occ Comments No Sex and Gender Information Value Date Recorded Sex Assigned at Not on file Legal Sex Female 8:04 PM EDT Gender Identity Not on file Sexual Orientation Not on file Last Filed Vital Signs Vital Sign Reading Time Taken Comments Blood Pressure 166/92 09/20/2024 2:33 AM EST Pulse 92 09/20/2024 2:33 AM EST Temperature 36.6 C (97.9 F) 09/20/2024 2:33 AM EST Respiratory Rate 20 09/20/2024 2:33 AM EST Oxygen Saturation 96% 09/20/2024 2:33 AM EST Inhaled Oxygen Concentration - - Weight 67.1 kg (148 lb) 09/20/2024 12:50 AM EST Height 162.6 cm (5' 4.02 ) 09/10/2024 12:[address] Body Mass Index 25.39 09/10/2024 12:00 PM EST Plan of Treatment Health Maintenance Due Date Last Done Comments [facility]-Depression Screening 1971 [facility]-/Child/Adol SDOH Screenings 1971 [facility]- SDOH Screenings 11/15/1989 [facility]-Adult SDOH Screenings 11/15/1989 [facility]-DTaP,Tdap,and Td Vaccine s (1 - Tdap) 11/15/1990 [facility]-Pneumococcal Vaccine: 50 + Years (1 of 2 - PCV) 11/15/1990 CT Colonography 11/15/2016 Colonoscopy 11/15/2016 FIT-DNA 11/15/2016 FIT 11/15/2016 FOBT 11/15/2016 Sigmoidoscopy 11/15/2016 [facility]-Colorectal Cancer Screening 11/15/2016 [facility]-Hepatitis A Vaccines (2 of 3 - Hep A Twinrix risk 3-dose series) 08/08/2018 07/11/2018 [facility]-Hepatitis B Vaccines (2 of 3 - Hep B Twinrix 3-dose series) 08/08/2018 07/11/2018 [facility]-Breast Cancer Screening 11/15/2021 [facility]-Zoster Vaccines (1 of 2) 11/15/2021 AEA-EQBLD-12 Vaccine (2 - season) 2024 04/06/2021 [facility]-Influenza Vaccine (Seaso n Ended) 2025 [facility]-HIV Screening Completed 11/03/2023, 07/10/2019 [facility]-Obesity Intervention Completed 025, 09/06/2024, 11/10/2023 [facility]-Hepatitis C Screening Completed 2024, 11/03/2023, 07/10/2019 HPV Vaccines Aged Out No longer eligi ble based on patient's age to complete this topic [facility]-HIB Vaccines Aged Out No longer e ligible based on patient's age to complete this topic [facility]-IPV Vaccines Aged Out No longer e ligible based on patient's age to complete this topic [facility]-Rotavirus Vaccines Aged Out No lo nger eligible based on patient's age to complete this topic Medical Devices Implanted Type Area Ethnographer Device Identifier Shelf Expiration Date Model / Serial / Lot One Level Plate, 12mm - [id number] Implanted:Qty : 1 on 11/28/2021 by Renard Garcia MD at [facility] Plate Spine Cervical [id number] 11/28/2022 [id number] / / Self Drilling Screw 14mm - [id number] Implanted:Qty : 2 on 11/28/2021 by Renard Garcia MD at [facility] Screw Spine Cervical [id number] 11/28/2022 [id number] / / Large Diameter 14mm - [id number] Implanted:Qty : 2 on 11/28/2021 by Renard Garcia MD at [facility] Screw Spine Cervical [id number] 11/28/2022 [id number] / / Nut Retainer - [id number] Implanted:Qty : 2 on 11/28/2021 by Renard Garcia MD at [facility] Washer Spine Cervical [id number] 11/28/2022 [id number] / / Knee Vanguard1 Cervical Preservon 7mm - [id number] - [id number] Implanted:Qty : 1 on 11/28/2021 by Renard Garcia MD at [facility] Spine Cervical [facility]-[id number] 07/05/2026 [id number] / [id number] / [id number] Graft Vivigen 1cc - [id number] - [id number] Implanted:Qty : 1 on 11/28/2021 by Renard Garcia MD at [facility] Spine Cervical [facility]-[id number] 11/18/2022 [id number] / [id number] / [id number] Procedures Procedure Name Priority Date/Time Associated Diagnosis Comments ACUTE HEPATITIS PANEL Routine 09/07/2024 8:04 AM EST ED HIV 1/2 ANTIBODY/ANTIGEN SCREEN WITH REFLEX TO HIV I/II DIFFERENTIATION STAT 11/03/2023 4:41 PM EDT from Last 3 Months or Most Recently Relevant to Health Maintenance Results * Hepatitis panel, acute (09/07/2024 8:04 AM EST) Hepatitis B Surf Antigen Negative Negative 09/07/2024 10:36 AM EST [facility] Hepatitis C Antibody Negative Negative 09/07/2024 10:36 AM EST [facility] Hepatitis A Antibody IgM Negative Negative 09/07/2024 10:36 AM EST [facility] Hepatitis B Core Antibody IgM Negative Negative 09/07/2024 10:36 AM EST [facility] Blood Venous blood specimen / Unknown Venipuncture / Unknown 09/07/2024 8:04 AM EST 09/07/2024 8:14 AM EST us Manjit W Peri PATHOLOGIST ASSISTANT, DNP LAB BLOOD ORDERABLES Fi nal Result [facility] [address] [place] [address] * ED HIV 1/2 Antibody/Antigen Screen w/Reflex to HIV 1/2 Differentiation (11/03/2023 4:41 PM EDT) HIV 1 & 2 Antibody/Antigen Screen Non Reactive Non Reactive 11/03/2023 5:36 PM EDT [facility] Comment:Screening for HIV 1 & 2 antibodies, and P24 antigen is NONREACTIVE. No confirmatory testing is required. Blood Venous blood specimen / Unknown Venipuncture / Unknown 11/03/2023 4:41 PM EDT 11/03/2023 4:55 PM EDT us Rashad Clement MD LAB BLOOD ORDERABLES Final [facility] [address] [place] [address] from Last 3 Months or Most Recently Relevant to Health Maintenance Insurance [employer] Advance Directives * Full Code (Latest Code Status on File) Date Activated Date Inactivated Comments 09/07/2024 6:46 AM 09/12/2024 6:58 PM Question Answer Comments Patient has decision-making capacity? Yes Care Teams Pulp Mill Operator Relationship Specialty Start Date End Date Pcp, No [address] [place] [address] PCP - General Family Medicine 11/10/23 Renard Garcia MD [address] [place] [address] Surgeon Neurosurgery 11/25/21 Yohana Aragon DO [address] [place] [address] Obstetrics and Gynecology 10/22/22 Yvette Velarde APRN [address] [place] [address] Nurse Practitioner Neurosurgery 11/10/23
--- OUTSIDE RECORDS SUMMARY | 2025-01-18 09:40 | XMS_ITS | Encounter Summary ---
Author Organization Healthcare Address [address] [place] [address] Care Team Providers Care Labelling Machine Operator Name Role Phone Perry Hicks MD Primary Care Provider [phone] Renard Garcia MD Unavailable [phone] Yohana Aragon DO Unavailable [phone] Yvette Velarde ADMIN SECRETARY Unavailable [phone] Pcp, No Primary Care Provider Unavailabl Carolina Lawrence PILLING MACHINE OPERATOR Unavailable Unavailable Encounter Details Date Type Department Care Team (Late st Contact Info) Description 11/01/2022 Lab Requisition [facility] [address] [place] [address] Santiago England MD [address] [facility] [address] [place] [address] Atypical squamous cells of undetermined significance on [...] Procedure Name Priority Date/Time Associated Diagnosis Comments CYTOLOGY CONSULT 11/01/2022 11:2 1 AM EDT Atypical squamous cells of undetermined significance on cytologic smear of cervix (ASC-US) documented in this encounter Results * Cytology Consult (11/01/2022 11:21 AM EDT) Case Report Cytology Case: [id number] Authorizing Provider: Santiago England MD Collected: 11/01/2022 112 Ordering Location: [facility] Lab Received: 11/01/2022 112 Pathologist: Alayna Vaca MD Specimen: Vaginal, [id number] 11/02/2022 11:55 AM EDT [facility] Final Diagnosis A. VAGINAL PAP SMEAR (OUTSIDE CASE [id number], COLLECTED 08/25/2022) - LOW GRADE SQUAMOUS INTRAEPITHELIAL LESION (LSIL), SEE COMMENT. 11/02/2022 11:55 AM EDT [facility] at 1155 EDT Comment Refer to surgical case [id number] for subsequent biopsy results. 11/02/2022 11:55 AM EDT [facility] Clinical Information R87.610 - Atypical squamous cells of undetermined significance on cytologic smear of cervix (ASC-US) [ICD-10-CM] 11/02/2022 11:55 AM EDT [facility] Gross Description A. [id number] For clinical data and diagnosis (LSIL) for this specimen ([id number]) see final report issued by [facility] Pathology Department. 11/02/2022 11:55 AM EDT [facility] Vaginal structure / Unknown 11/01/2022 11:21 AM EDT 11/01/2022 11:22 AM EDT us Santiago England MD LAB PATHOLOGY ORDERABLES Final Result [facility] [address] [place] [address] documented in this encounter Visit Diagnoses Diagnosis [...] documented as of this encounter Care Teams Labelling Machine Operator Relationship Specialty Start Date End Date Perry Hicks MD [address] [place] [address] PCP - General 12/05/20 11/09/23 Pcp, [address] [place] [address] PCP - General Family Medicine 11/10/23 Renard Garcia MD [address] [place] [address] Surgeon Neurosurgery 11/25/21 Yohana Aragon DO [address] [place] [address] Obstetrics and Gynecology 10/22/22 Yvette Velarde APRN [address] [place] [address] Nurse Practitioner Neurosurgery 11/10/23 Carolina Aquino LPN [employer] [place] [address] TCM Nurse 09/13/24 10/12/24 documented as of this encounter
--- OUTSIDE RECORDS SUMMARY | 2025-01-18 09:40 | XMS_ITS | Data Portability ---
Author Organization [facility] Address [address] [place] [address] Care Team Providers Care Blasting Miner Name Role Phone MELLISSA TORRES Primary Care Provider [phone] JEFF ALEX Referring Provider [phone] Assessment Encounter Date Assessment Date Assessment LastModified by Organization Details LastModified Time 12/06/2023 12/06/2023 HPI: This is a 53-year-old female with low back and leg pain She was referred by [facility], history of chronic shoulder and arm pain as well as low back and leg pain. Primary complaint today is low back pain that radiates down both legs to the feet. She has participated in home exercise program from her doctor without benefit as per HPI. No prior back surgery. Prior neck surgery including C6-7 ACDF at in 2021. Prior injection therapy includes lumbar medial branch blocks at another pain clinic. Was prescribed benzodiazepines and opioids in the past as well as gabapentin. Anticoagulants: None PMHx: Anxiety, hypothyroidism, GERD INJ Hx: Lumbar medial branch blocks PSHx/Surgical Evaluation: ACDF in the past, C6-7 IMAGING: Lumbar plain films demonstrate multilevel spondylosis with disc space narrowing L4-5 and L5-S1 The above image findings were discussed with the patient. Current medications include Klonopin. The patient feels that they receive inadequate analgesia and activity improvement with the medication. The patient denies side effects from the medications. UDS was not obtained. ORT, PHQ-9 and VLADIMIR were reviewed today. SANTOS report was reviewed today and is appropriate. Based upon the above I would consider the patient to be High risk for opioid therapy due to benzodiazepine use. PT The patient has participated in a physician directed home exercise program daily for over six weeks within the last three months for their above documented pain without improvement in symptoms ASSESSMENT/PLAN This is a 53-year-old female with low back and leg pain Differential diagnosis includes lumbar spinal stenosis with neurogenic claudication versus lumbar radiculopathy. Recommend lumbar flexion-extension x-ray to rule out mobile spondylolisthesis and lumbar MRI to assess for nerve root impingement and plan for possible PASHA. Follow-up in 1 month. Continue gabapentin 800 mg 3 times daily. External records were reviewed and discussed as above, including imaging, clinical notes, and relevant labs. Much of this encounter is an electronic public transit trolley driver/trans lation of spoken language to printed text. The electronic translation of spoken language may permit erroneous or at times nonsensical words of phrases to be inadvertently transcribed; Although I have reviewed the note for such errors, some may still exist. [email or web address] Not available 12/06/2023 10:42:59 01/20/2024 01/20/2024 Interval Hx: Ms. Kamara follows up with low back and leg pain. She did have the MRI this morning, but the report is not available yet. She continues to report severe neck, low back, and leg pain interfering with daily activities, mobility, and sleep. She reports gabapentin does not provide significant benefit, lyrica makes her sick. She is apprehensive about injection therapy, reports a previous PASHA required a blood patch. She is currently trying to establish a new PCP, due to this she is not currently taking klonopin. HPI: This is a 53-year-old female with low back and leg pain She was referred by [facility], history of chronic shoulder and arm pain as well as low back and leg pain. Primary complaint today is low back pain that radiates down both legs to the feet. She has participated in home exercise program from her doctor without benefit as per HPI. No prior back surgery. Prior neck surgery including C6-7 ACDF at in 2021. Prior injection therapy includes lumbar medial branch blocks at another pain clinic. Was prescribed benzodiazepines and opioids in the past as well as gabapentin. Anticoagulants: None PMHx : Anxiety, hypothyroidism, GERD INJ Hx: Lumbar medial branch blocks PSHx/Surgical Evaluation: ACDF in the past, C6-7 IMAGING: XR CERVICAL SPINE 10/2023 4 views of the cervical spine show postoperative changes of anterior cervical discectomy and fusion at C6-C7. Moderate degenerative disc changes at C5-C6. Unchanged minimal anterior subluxation at C4-C5 in flexion that reduces in extension. No fracture or bone destruction. Prevertebral soft tissues are normal. IMPRESSION: Anterior cervical discectomy and fusion at C6-C7 without hardware complication. Lumbar plain films demonstrate multilevel spondylosis with disc space narrowing L4-5 and L5-S1 The above image findings were discussed with the patient. Medications/Complia nce: Current medications include Klonopin. The patient feels that they receive inadequate analgesia and activity improvement with the medication. The patient denies side effects from the medications. UDS was not obtained. ORT, PHQ-9 and VLADIMIR were reviewed today. SANTOS report was reviewed today and is appropriate. Based upon the above I would consider the patient to be High risk for opioid therapy due to benzodiazepine use. PT The patient has participated in a physician directed home exercise program daily for over six weeks within the last three months for their above documented pain without improvement in symptoms ASSESSMENT/PLAN This is a 53-year-old female with low back, leg, and neck pain. I was able to obtain the cervical xray from the record of care. We discussed CMBB for neck pain, she defers. The lumbar MRI report has been requested. As she will be traveling to [place] for a for an extended period, she elects to follow up in 1 month to review the report and discuss injection options at that time. She would like to continue gabapentin as she cannot tolerate lyrica. New prescription provided today. I will provide medrol as she is concerned the extended car ride will exacerbate her pain. She will take the medication if needed. We will follow up in 30 days for medication management and further treatment planning. [email or web address] Not available 01/20/2024 11:49:48 Plan of Treatment Reminders Order Date Submit Date Provider Last Modified By Organization Details Last Modified Time Details Appointments None recorded. Lab None recorded. Referral None recorded. Procedures None recorded. Surgeries None recorded. Imaging MRI, lumbar spine, w/o contrast 2023 024 [email or web address] [facility], [address] [place] [address], [place], [address], 4 11:21:12 XR, lumbosacra l spine, 4 or more view - AP/LAT/FLE X & EXT 2023 024 [email or web address] Not available 4 11:06:11 Medication Orders gabapentin 800 mg tablet 2023 024 [facility], [address] [place], [place] [address], [id number], 4 11:48:20 Medrol (Iron) 4 mg tablets in a dose pack 2023 024 [facility], [address] [place], [place] [address], [id number], 4 11:48:18 gabapentin 800 mg tablet 2023 024 [facility], [address] [place], [place] [address], [id number], 4 10:45:19 Patient TargetsNo targets recorded. Patient InstructionsNo instructions recorded. Reason for Referral None Reported. Results Created Date Observation Date Name Description Value Unit Range Abnormal Flag Note LastModifiedBy Organization Detail LastModifiedTime 01/20/20 24 01/20/2024 MRI, lumba r spine , w/o contr ast No observ ation record ed. [email or web address] [facility] [address], [address], 01/20/2024 11:49:51 01/20/20 24 01/20/2024 MRI, lumba r spine , w/o contr ast No observ ation record ed. [email or web address] [facility] [address], [address], 01/23/2024 13:38:27 Result Notes None recorded. Problems Name Problem SNOMED Code Status Onset Date Resolution Date Notes Provider Name and Address Organization Details Recorded Time Lumbar spondylosis 743167210 Active 2023 REX Patel [facility] 4 09:49:49 Lumbar radiculopathy 463213672 Active 2023 REX Patel [facility] 4 09:49:49 Chronic pain 81146410 Active 2023 REX Patel [facility] 4 09:49:49 Overweight 777237411 Active 2023 REX Patel [facility] 4 09:49:51 Problem Notes None recorded. Procedures Surgical History Date Name Laterality Status Provider Name and Address Organization Details Recorded Time ACDF completed Carmela Null [facility] 12/06/2023 09:50:37 Imaging Results None recorded. Procedure Notes None recorded. Medical Equipment None Reported. Allergies Allergen ID Allergen Name Allergen Category Reaction Reaction Severity Criticality Documentation Date Start Date Code Code System Note Provider Name and Address Organization Details Recorded Time 443203 Product containin g penicilli n (product) medicatio n Not available Not available Not available 12/05/2023 05382 8001 SNOMED REX Patel [facility] 4 09:07:30 243808 codeine medicatio n Not available Not available Not available 12/05/2023 2670 RxNorm REX Patel [facility] 4 09:07:34 388399 erythromy vito medicatio n Not available Not available Not available 12/05/2023 4053 RxNorm REX Patel [facility] 4 09:07:41 Medications Name Sig Start Date Stop Date Status Note LastModified by Organization Details LastModified Time methocarbamol 500 mg tablet 12/05 completed Not Available Not Available Not Available prednisone 10 mg tablet active Not Available Not Available No t Available doxycycline hyclate 100 mg capsule active Not Available Not Available N ot Available loperamide 2 mg capsule active Not Available Not Available N ot Available atorvastatin 10 mg tablet active Not Available Not Available Not Available hydrocodone 5 mg-acetaminop hen 325 mg tablet 12/04 completed Not Available Not Available Not Available minocycline 100 mg capsule 12/04 completed Not Available Not Available Not Available promethazine 12.5 mg tablet 12/04 completed Not Available Not Available Not Available clonazepam 0.5 mg tablet active Not Available Not Availabl e Not Available dextromethorp milner-guaifenes in 10 mg-100 mg/5 mL oral syrup active Not Available Not Available Not Available hydrocodone 10 mg-acetaminop hen 325 mg tablet active Not Available Not Available Not Available omeprazole 40 mg capsule,delay ed release active Not Available Not Available N ot Available tramadol 50 mg tablet 12/05 completed Not Available Not Available Not Available acetaminophen 500 mg tablet 12/04 completed Not Available Not Available Not Available levothyroxine 25 mcg tablet active Not Available Not Availabl e Not Available ketorolac 10 mg tablet 12/04 completed Not Available Not Available Not Available methocarbamol 750 mg tablet 12/04 completed Not Available Not Available Not Available gabapentin 800 mg tablet Take 1 tablet 4 times a day by oral route for 30 days. active Not Available Not Available No t Available benzonatate 100 mg capsule active Not Available Not Available Not Available cephalexin 500 mg capsule 12/04 completed Not Available Not Available Not Available diphenhydrami ne 25 mg capsule active Not Available Not Available Not Available Banophen 25 mg tablet 12/05 completed Not Available Not Available Not Available lidocaine 5 % topical patch 12/05 completed Not Available Not Available Not Available promethazine 25 mg tablet active Not Available Not Available Not Available hydrocortison e-aloe vera 1 % topical cream 12/04 completed Not Available Not Available Not Available hydroxyzine HCl 25 mg tablet 12/04 completed Not Available Not Available Not Available ergocalcifero l (vitamin D2) 1,250 mcg (50,000 unit) capsule active Not Available Not Available Not Available ibuprofen 600 mg tablet active Not Available Not Available No t Available methylprednis olone 4 mg tablets in a dose pack Take 1 dose pk by oral route. active Not Available Not Available No t Available albuterol sulfate HFA 90 mcg/actuation aerosol inhaler active Not Available Not Available Not Available fluticasone propionate 50 mcg/actuation nasal spray,suspens ion active Not Available Not Available Not Available loratadine 10 mg tablet 12/05 completed Not Available Not Available Not Available hydroxyzine pamoate 25 mg capsule 12/04 completed Not Available Not Available Not Available duloxetine 30 mg capsule,delay ed release active Not Available Not Available N ot Available Eye Itch Relief 0.025 % (0.035 %) drops active Not Available Not Available Not Available cholecalcifer ol (vitamin D3) 50 mcg (2,000 unit) tablet 12/04 completed Not Available Not Available Not Available sodium,potass ium,mag sulfates 17.5 gram-3.13 gram-1.6 gram oral soln 12/04 completed Not Available Not Available Not Available Vitamin D3 50 mcg (2,000 unit) capsule active Not Available Not Availabl e Not Available Lidocaine Pain Relief 4 % topical patch 12/05 completed Not Available Not Available Not Available Mariaelena-Tussin DM 10 mg-100 mg/5 mL oral liquid 12/05 completed Not Available Not Available Not Available Kloxxado 8 mg/actuation nasal spray 12/05 completed Not Available Not Available Not Available Vitals Date Recorded Body height Body mass index (BMI) Body weight Heart rate Oxygen saturation Oxygen saturation in Arterial blood by Pulse oximetry Systolic blood pressure Diastolic blood pressure Provider Name and Address Organization Details Last Updated DateTime 4 162.56 cm 20.3 kg/m2 51128.9 g 74 /min 99 % 99 % 124 mm[Hg] 77 mm[Hg] Carmela miranda [facility] 4 09:50:57 Date Recorded Body height Body mass index (BMI) Body weight Heart rate Oxygen saturation Oxygen saturation in Arterial blood by Pulse oximetry Systolic blood pressure Diastolic blood pressure Provider Name and Address Organization Details Last Updated DateTime 4 162.56 cm 20.3 kg/m2 93457.9 g 76 /min 99 % 99 % 132 mm[Hg] 79 mm[Hg] Carmela miranda [facility] 4 11:21:27 Social History Question Answer Notes LastModified by Organizat ion Details LastModified Time Tobacco Smoking Status Current Every Day Smoker DIP REX Patel [facility] 12/06/2023 09:57:38 Do You Have An Advance Directive? No Information not available 12/06/2023 What Type Of Diet Are You Following? REGULAR Information not available 12/06/2023 What Is The Highest Grade Or Level Of School You Have Completed Or The Highest Degree You Have Received? [id number] Information not available 12/06/2023 Do You Have A Medical Power Of Opto Mechanical Engineer? No Information not available 12/06/2023 What Was The Date Of Your Most Recent Tobacco Screening? 12/06/2023 Information not available 12/06/2023 What Is Your Relationship Status? Unknown Information not available 12/06/2023 How Much Tobacco Do You Smoke? No Information not available 12/06/2023 Sex: Unknown Functional Status Question Answer Note LastModified by Organizat ion Details LastModified Time Do you use any illicit or recreational drugs? No Information not available 12/06/2023 What is your level of alcohol consumption? None Information not available 12/06/2023 Are you currently employed? No Information not available 12/06/2023 Are you able to walk? YESWOREST Information not available 12/06/2023 What is your exercise level? None Information not available 12/06/2023 Mental Status None recorded. Family History Nothing Reported. Medical History Condition Response Bipolar Disease N Coronary Artery Disease N Seizure Disorder N Gout N Thyroid Disease N Atrial Fibrillation N Head Trauma/Injury N Hernia N Depression N COPD N Anxiety Disorder N Acid Reflux (GERD) N Cancer N Stroke N Skin Disorder N High Cholesterol N Liver Disease N Rheumatoid Arthritis N Fibromyalgia N Headaches N Kidney Disease N Autoimmune Disease N Osteoarthritis N Neurosurgery N DVT N Peptic Ulcer Disease N Anemia N Heart Attack ([place]) N Diabetes N Cardiomyopathy N Bleeding Disorder N CHF N AIDS/HIV N Inflammatory Bowel Disease N Dementia N Asthma N Substance Abuse N Sleep Apnea N Hepatitis N Heart Disease N Pulmonary Embolism N Chronic Low Back Pain N Hypertension N Osteoporosis N Gynecological HistoryNo gynecological history recorded. Obstetrics History GPAL:G 0 P 0 0 0 0 Past Encounters Encounter ID Performer Location Encounter Start Date Encounter Closed Date Diagnosis/Indication Diagnosis SNOMED-CT Code Diagnosis ICD10 Code Diagnosis Note [id number] CORINNE SNOW MD [place] [address] [place] [address] 12/06/2023 09:04:53 12/06/2023 11:06:06 Lumbar radiculopathy 300534940 M54.16 [id number] Robson Mendes MD [place] [address] [place] [address] 01/20/2024 11:16:11 01/20/2024 11:42:30 Lumbar radiculopathy 764514306 M54.16 Health Concerns Section Related Observation LastModified by Organization Detai ls LastModified Time None Recorded Concern Status LastModified by Organization Details LastModified Time None Recorded Advance Directives Directive N: Payers Insurance Date Sequence Insurance Name Policy Number Policy Harrington Covered Member ID Harrington Member ID Guarantor Name 03/31/[address] [facility] (MEDICAID HMO) Tonya Kamara [id number] Tonya Kmaara Notes Date Note Type Note Provider Name and Address Organization Details Recorded Time 12/06/2023 text/html Low back painRep orted bypatient.Onset:date of onset: (Gradually getting worse) Location:midline; paraspinal: bilateral; buttock: bilateral; radiating down the bilateral lower extremity to the foot Duration:varies throughout the day Context:started without cause Quality:burning; throbbing Pain Intensitycurrent pain level: 8/10; average pain level: 8/10; worst pain level: 8/10 Alleviating Factors:nothing helps Aggravating Factors:standing; twisting; bending/squatting Associated Symptoms:numbness Functional Assessment of ADLsLiving independently.;Diffic ulty bathing/grooming secondary to pain.;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 Prior Imaging:no recent studies Lumbar Surgery:none Interventional Treatment History:lumbar ESIs: no relief Physical Therapy:Facility: ([facility]); completed all recommended PT visits; complete more than 6weeks; dates: (11/2022-01/2023); response to therapy: no improvement in pain/symptoms; Currently participating in home exercise program(HEP): not effective; Date Started HEP: 11/2022 Days per week: 4; Patient has been active in HEP since 07/2023 for low back pain for 4-5x week for 15-30 minutes a day. New order for low back HEP given today as well 12/03/2023 Other Conservative Treatments:heat: not effective; ice: not effective Prior Pain Management:yes: () Oswestry Disability Index (VLADIMIR)Score/Date Completed: (39) CORINNE SNOW MD [address] [place] [address], [phone] 12/06/2023 10:43:24 01/20/2024 text/html Low back painRep orted bypatient.Onset:date of onset: (Gradually getting worse) Location:midline; paraspinal: bilateral; buttock: bilateral; radiating down the bilateral lower extremity to the foot Duration:varies throughout the day Context:started without cause Quality:burning; throbbing Pain Intensitycurrent pain level: 8/10; average pain level: 8/10; worst pain level: 8/10 Alleviating Factors:nothing helps Aggravating Factors:standing; twisting; bending/squatting Associated Symptoms:numbness Functional Assessment of ADLsLiving independently.;Diffic ulty bathing/grooming secondary to pain.;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 Prior Imaging:no recent studies Lumbar Surgery:none Interventional Treatment History:lumbar ESIs: no relief Physical Therapy:Facility: ([facility]); completed all recommended PT visits; complete more than 6weeks; dates: (11/2022-01/2023); response to therapy: no improvement in pain/symptoms; Currently participating in home exercise program(HEP): not effective; Date Started HEP: 11/2022 Days per week: 4; Patient has been active in HEP since 07/2023 for low back pain for 4-5x week for 15-30 minutes a day. New order for low back HEP given today as well 12/03/2023 Other Conservative Treatments:heat: not effective; ice: not effective Prior Pain Management:yes: () Oswestry Disability Index (VLADIMIR)Score/Date Completed: (39) Patient is here today to go over MRI and XR- Patient did not have XR performed. She would like to discuss the gabapentin not being effective. Patients pain today 05/03. Patient denies any ER visits, hospitalization or specialty visits. KIARRA CARNES [address] [place] [address], [phone], [facility] 01/20/2024 11:50:20 OBGyn Episode No OBEpisode recorded.
== END 2025-01-16 23:59 | disposition home or self-care (01) ==
LOC: LAB.DROPOF 01-18 09:36
PROVIDERS: PCP Internal Medicine; Visit Provider Internal Medicine
DX: E87.5 Hyperkalemia (principal); F10.920 Alcohol use, unspecified with intoxication, uncomplicated
CPT/HCPCS: 80053; 80320

== ENCOUNTER 2025-01-28 15:34 | Emergency (ER) | payer MEDICAID, SELFPAY ==
[2025-01-28 15:30] VITALS: BP 159/107; PULSE 92; O2SAT 99
--- NOTE | 2025-01-28 15:34 | XR_ITS ---
FINAL REPORT CLINICAL HISTORY: Shortness of breath, COPD COMPARISON: 01/27/2024 FINDINGS: 2 views of the chest were obtained . The heart is normal in size. The mediastinum is within normal limits. There is scarring the left lung base. The lungs are otherwise clear. There is no pneumothorax. Osseous structures are unremarkable. IMPRESSION: No acute cardiopulmonary process. Reviewed, Interpreted and Dictated by Skip Yañez MD Transcribed by Emilee Hardy Authenticated and . [facility]
--- NOTE | 2025-01-28 15:35 | PC.NURSE ---
This RN at bedside with Dr Tabares.
[2025-01-28 15:36] VITALS: BP 154/95; PULSE 88; RESP 17; TEMP 36.8; O2SAT 100; BMI 24.3
--- NOTE | 2025-01-28 15:37 | ED_ITS ---
Discharge Plan Disposition Patient Disposition: Home, Self-Care Prescriptions Prescriptions: No Action albuterol sulfate 90 mcg/actuation HFA aerosol inhaler 1 inh inhalation Q6H PRN loperamide 2 mg capsule 6 mg PO BID PRN hydrocortisone-aloe vera [Anti-Itch(hydrocortisone)-Aloe] 1 % cream 1 applic topical TID PRN (Reason: skin irritation) Qty: 28 5RF albuterol sulfate 2.5 mg /3 mL (0.083 %) solution for nebulization 5 mg continuous nebulization Q6H PRN Patient Comments: INHALE CONTENTS OF 2 VIALS VIA NEBULIZER EVERY 6 HOURS NEEDED FOR SHORTNESS OF BREATH OR WHEEZING benzonatate 100 mg capsule 100 mg PO DAILY Qty: 60 3RF Rx Instructions: TAKE 1 CAPSULE BY MOUTH 3 TIMES A DAY NEEDED FOR COUGH hydrocodone-acetaminophen 10-325 mg tablet 1 tab PO Q8H PRN (Reason: pain) Qty: 45 0RF fluticasone propionate 50 mcg/actuation spray,suspension 1 spray INTRANASAL BID PRN (Reason: allergy symptoms) Qty: 16 3RF omeprazole 40 mg capsule,delayed release(DR/EC) 40 mg PO DAILY Qty: 90 1RF Rx Instructions: TAKE ONE CAPSULE BY MOUTH ONCE A DAY FOR GERD clonazepam [Klonopin] 0.5 mg tablet 0.5 mg PO BID 30 Days Qty: 60 0RF levothyroxine 25 mcg tablet 25 mcg PO DAILY Rx Instructions: TAKE ONE TABLET BY MOUTH ONCE A DAY FOR THYROID promethazine 25 mg tablet 25 mg PO BIDP PRN (Reason: Nausea And Vomiting) Rx Instructions: TAKE ONE TABLET BY MOUTH 3 TIMES A DAY Referrals Follow up/Referrals: Provider,Referral, MD [Primary Care Provider, Medical] - See instructions Activity Restrictions/Add. Instructions Additional Instructions/Restrictions: Follow-up with your primary care physician and pain management team. If you develop any new or worsening symptoms, or if you become concerned for your health for any reason, return to the emergency department for evaluation. Clinical Impressions Clinical Impression: Shortness of breath, Chronic pain Print Language Print Language: Bahraini Discharge ED Provider: Raj Tabares General Adult HPI General Chief complaint: PAIN Stated complaint: weakness Time Seen by Provider: 01/28/25 15:35 Mode of Arrival: Ambulatory Source of Information: Patient Limitations: No Limitations History of Present Illness HPI narrative: Tonya Kamara is a 54F with a history of anxiety, fibromyalgia, COPD, chronic pain who presents to the ED for complaints of shortness of breath. Patient states that she is chronically short of breath and took a breathing treatment today and feels like it is not getting any better. 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 Patient denies any fevers. She denies any tobacco use. She reports that she wanted to be at but her uncle brought her here instead. Related Data Home Medications ?Medication ?Instructions ?Recorded ?Confirmed levothyroxine 25 mcg tablet 25 mcg PO DAILY 07/24/24 0 01/16/25 promethazine 25 mg tablet 25 mg PO BIDP PRN Nausea And 07/24/24 01/16/25 Vomiting albuterol sulfate 90 mcg/actuation 1 inh inhalation Q6 H PRN 11/22/24 01/16/25 aerosol inhaler loperamide 2 mg capsule 6 mg PO BID PRN 12/27/24 albuterol sulfate 2.5 mg/3 mL 5 mg continuous nebuliza tion Q6H 01/04/25 01/16/25 (0.083 %) solution for nebulization PRN Previous Rx's ?Medication ?Instructions ?Recorded fluticasone propionate 50 1 spray intranasal BID PRN a llergy 12/26/24 mcg/actuation nasal symptoms #16 grams spray,suspension hydrocortisone-aloe vera 1 % 1 applic topical TID PRN skin 12/27/24 topical cream (Anti-Itch irritation #28 grams (hydrocortisone) with Aloe) omeprazole 40 mg capsule,delayed 40 mg PO DAILY #90 ca ps 01/07/25 release benzonatate 100 mg capsule 100 mg PO DAILY #60 caps hydrocodone 10 mg-acetaminophen 1 tab PO Q8H PRN pain #45 tabs 01/16/25 325 mg tablet clonazepam 0.5 mg tablet (Klonopin) 0.5 mg PO BID anxi ety 30 days #60 01/17/25 tabs Allergies Allergy/AdvReac Type Severity Reaction Status Date / Time lidocaine Allergy Intermediate Red, Rash, Verified 01/16/25 13:14 Itching codeine (CODEINE) Allergy Unknown VOMITING Verified 01/16/25 13:14 erythromycin base Allergy Unknown ITCHING/HIV Verified 01/16/25 13:14 (ERYTHROMYCIN BASE) ES Penicillins (PENICILLINS) Allergy Unknown VOMITING Verified 01/16/25 13:14 ibuprofen Allergy Hives Verified 01/16/25 13:14 tramadol AdvReac Hives Verified 01/16/25 13:14 [facility] Disclaimer: The information contained in this section may have been updated after the patient was seen, as this information can be updated by other users. Medical History Rheumatic arteritis COPD (chronic obstructive pulmonary disease) Hyperlipidemia History of ovarian cancer Colon cancer LGSIL Pap smear of vagina Back pain Bilateral pendulous breasts Feeling of incomplete bladder emptying Encounter for pre-operative cardiovascular clearance Chest tightness Daytime somnolence Abnormal electrocardiography Dyspnea Lumbar disc disease with radiculopathy Surgical History History of cranial surgery Hx of neck surgery cervical History of hysterectomy History of cholecystectomy Family History Other Anemia Asthma Cancer Coronary artery disease Diabetes Family history of bronchitis Family history of myocardial infarction Family history of stroke Heart attack Hyperlipidemia Hypertension Kidney disease Stroke Thyroid disorder Social History Smoking Status: Never smoker second hand exposure: No alcohol intake: current alcohol intake frequency: holidays/special occasions only substance use type: denies use current occupational status: disabled Travel in the last 8 weeks?: None household members: none housing: house lives independently: Yes marital status: single number of children: 3 education level: high school current occupational exposures/hazards: No caffeine: No special christopher needs: No agree to transfusion: No do you feel safe at home: Yes victim of physical abuse: No victim of emotional abuse: No victim of sexual abuse: No would you like helpful sources: No Have you lived/traveled outside [place] in past 30 days?: No Contact w/someone who lives/traveled outside US past 30 days?: No Exposure to someone with infectious disease in past 14 days?: No Do you have a fever (greater than 100.4 F or 38 C)?: No Have you tested positive for COVID-19?: No Exposed to someone with COVID-19 in past 14 days?: No Do you have a sore throat?: No Do you have a cough?: No Do you have any weakness?: No Do you have any diarrhea?: No Are you experiencing any unusual bleeding?: No Do you have any muscle aches/pain?: No Do you have any abdominal pain?: No Are you experiencing loss of taste or smell?: No Other Medical History Have you received the Flu Vaccine for this season: No Have you received the Pneumonia Vaccine: No ROS Obtained: Yes Systems reviewed as appropriate & no additional complaints except as documented Physical Exam General General appearance: alert and in no apparent distress Head Head exam: atraumatic Eye Eye exam: Present normal appearance ENT ENT exam: Present normal external ear exam Neck Neck exam: Present full ROM Chest Chest inspection: Present symmetric chest wall rise Respiratory Respiratory exam: Present normal lung sounds bilaterally; Absent respiratory distress Cardiovascular Cardiovascular exam: Present regular rate and normal rhythm Abdominal Exam Abdominal exam: Present soft; Absent tenderness or guarding Extremities Exam Extremities exam: Present normal inspection Back Exam Back exam: Present normal inspection and tenderness (to light palpation to the bilateral shoulders and cervical paraspinal areas) Neurological Exam Neurological exam: Present alert and oriented X3 Psychiatric Psychiatric exam: Present normal affect Skin Skin exam: Present warm and dry Medical Decision Making Medical Records Screening: Per USPSTF and CDC recommendations, given the prevalence of disease in our region, it is our hospital?s policy to screen for HIV and viral Hepatitis for all patients aged 18 and over and those with ongoing risk factors. [place] Inquiry Pt receiving controlled substance: No Vital Signs: 01/28/25 15:30 01/28/25 15:36 Temperature 98.3 F Temperature Source Oral Pulse Rate 92 H Pulse Rate [Right] 88 Respiratory Rate 17 Blood Pressure 159/107 H Blood Pressure [Right Arm] 154/95 H Blood Pressure Mean [Right Arm] 114 Blood Pressure Source [Right Arm] Automatic Cuff 02 Sat by Pulse Oximetry 99 100 Oxygen Delivery Method Room Air Lab Data Lab Results 01/28/25 15:15: WBC 6.6, RBC 3.61 L, Hgb 10.7 L, Hct 31.6 L, MCV 87.5, MCH 29.6, MCHC 33.9, RDW 14.6, Plt Count 332, MPV 9.2, Neut % (Auto) 37.7, Lymph % (Auto) 55.7 H, Randolph % (Auto) 5.6, Eos % (Auto) 0.5, Baso % (Auto) 0.3, Neut # (Auto) 2.5, Lymph # (Auto) 3.7, Randolph # (Auto) 0.4, Eos # (Auto) 0.0, Baso # (Auto) 0.0, VBG pH 7.41, VBG pCO2 34.5 L, VBG pO2 172.5 H, VBG HCO3 21.3 L, VBG Total CO2 22.4 L, VBG O2 Saturation 99.1 H, VBG Base Excess -3.3 L, VBG Lactic Acid 1.7, S odium 131 L, Potassium 4.4, Chloride 93 L, Carbon Dioxide 22, Anion Gap 20.4 H, BUN 8, Creatinine 0.60, Estimated GFR 105, Est GFR ( Amer) 127, Glucose 75, Calcium 8.6, Total Bilirubin 0.6, AST 48 H, ALT 21, Alkaline Phosphatase 91, Troponin I < 0.01, Total Protein 7.8, Albumin 4.6, Globulin 3.2, Albumin/Globulin Ratio 1.4 01/28/25 15:15 01/28/25 15:15 Orders (Tests/Meds): ED MEDICATIONS Discontinued Medications Generic Name Dose Route Start Last Admin Trade Name Freq PRN Reason Stop Dose Admin Acetaminophen 1,000 mg 01/28/25 15:34 01/28/25 16:14 Acetaminophen 500mg Tab PO 01/28/25 15:35 1,000 mg ONCE ONE Administration Methocarbamol 1,500 mg 01/28/25 15:36 01/28/25 16:13 Methocarbamol 500mg Tablet PO 01/28/25 15:37 1,500 mg ONCE ONE Administration ORDERS Category Date Time Status CXR 2 view (NOT portable) [XR chest 2V] Stat Exams 01/28/25 15:34 Taken CBC w/Auto Diff [Complete Blood Count Auto Diff] Stat Lab 01/28/25 15:15 Completed CMP [Comprehensive Metabolic Panel] Stat Lab 01/28/25 15:15 Completed Trop I [Troponin I] Stat Lab 01/28/25 15:15 Completed Troponin I Q3H Lab 01/28/25 18:45 Ordered Troponin I Q3H Lab 01/28/25 21:45 Ordered VBG [Venous Blood Gas] Stat RT 01/28/25 15:15 Completed EKG Request [ECG Request] Stat Y 01/28/25 15:34 Ordered ECG Data Tracing #1: I reviewed this ECG and interpreted as documented below: EKG interpreted by me personally. Normal sinus rhythm. No ST elevation or depression. QTc within normal limits Medical Decision Narrative: Tonya Kamara is a 54F with a history of anxiety, fibromyalgia, COPD, chronic pain who presents to the ED for complaints of shortness of breath. Patient states that she is chronically short of breath and took a breathing treatment today and feels like it is not getting any better. 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 Patient denies any fevers. She denies any tobacco use. She reports that she wanted to be at but her uncle brought her here instead. On arrival, patient is mildly hypertensive, heart rate within normal limits, cardiopulmonary exam unremarkable with no wheezing, rales or rhonchi. No murmurs, She has tenderenss to very light touch to her bilateral shoulder and cervical paraspinal areas. Physical exam is otherwise unremarkable. Differential diagnosis includes but is not limited to: COPD exacerbation, ACS, pneumonia, chronic pain, fibromyalgia, malingering, among others. Workup in the Emergency Department included: EKG, two-view chest x-ray, CBC, CMP, troponin, VBG with lactate, CMP. VBG with lactate, VBG with lactate, CMP patient was treated with 1 g of oral Tylenol and 1500 mg Robaxin for her symptoms Workup significant for: Normal white blood cell count. Hemoglobin mildly low at 10.7 (baseline around 12), VBG unremarkable with normal lactate. Mild hyponatremia with sodium 131 (baseline appears to be 133), anion gap of 20.4 (however chronically elevated), no TAM. Electrolytes otherwise unremarkable. Initial troponin less than 0.01. Chest x-ray interpreted by me personally. No focal consolidation, widening of the mediastinum, enlarged cardiac silhouette or pneumothorax. See final radiology report for details EKG interpreted by me as well and is unremarkable. See interpretation above. Patient is requesting to leave at this time as her son has showed up to the emergency department to pick her up. There is no significant findings on her workup today. Patient's symptoms appear to be chronic in nature and have not changed recently. Encouraged her to follow-up with her pain clinic team. Encouraged her to take Tylenol and offered muscle relaxers, however she declined. Given this, it is felt the patient is appropriate discharge at this time. Return precautions were given. All questions were answered. She was then discharged with emergency department in stable condition. Critical Care Critical Care Time Critical Care Time: No
[2025-01-28 15:42] LABS: Hematocrit 31.6 % (37.0-47.0); Hemoglobin 10.7 g/dL (12.2-16.2); Immature Granulocytes % 0.2 %; Mean Corpuscular HGB Conc 33.9 g/dL (31.8-35.4); Mean Corpuscular Hemoglobin 29.6 pg (27.0-31.2); Mean Corpuscular Volume 87.5 fl (81-99); Nucleated Red Blood Cells % 0 %; Platelet Count 332 K/mm3 (142-424); Red Blood Count 3.61 M/mm3 (4.20-5.40); Red Cell Distribution Width-SD 47.1 fL; White Blood Count 6.6 K/mm3 (4.8-10.8)
[2025-01-28 15:47] LABS: Alanine Aminotransferase 21 U/L (12-78); Albumin Level 4.6 g/dl (3.5-5.0); Albumin/Globulin Ratio 1.4 (1.1-1.8); Alkaline Phosphatase 91 U/L (38-126); Anion Gap 20.4 mEq/L (5-15); Aspartate Amino Transferase 48 U/L (14-36); Bilirubin,Total 0.6 mg/dl (0.2-1.3); Blood Urea Nitrogen 8 mg/dl (7-17); Calcium 8.6 mg/dl (8.4-10.2); Carbon Dioxide 22 mmol/L (22.0-30.0); Chloride 93 mmol/L (98-107); Creatinine,Serum 0.60 mg/dl (0.52-1.04); Estimated Glomerular Filt Rate 105 ml/min (>60); GFR (African American) 127 ML/MIN (>60); Globulin 3.2 g/dL (1.3-3.2); Glucose 75 mg/dl (74-100); Potassium 4.4 mmoL/L (3.5-5.1); Sodium 131 mmol/L (136-145); Total Protein,Serum 7.8 g/dl (6.3-8.2)
[2025-01-28 15:48] LABS: Lactate Venous 1.7 mmol/L (0.4-2.0); VBG HCO3 21.3 mmol/L (23-30); VBG PCO2 34.5 mmol/L (35-51); VBG PH 7.41 mmol/L (7.31-7.41); VBG PO2 172.5 mmol/L (28-40)
--- OUTSIDE RECORDS SUMMARY | 2025-01-28 15:50 | XMS_ITS | Encounter Summary ---
Author Organization Healthcare Address [address] [place] [address] Care Team Providers Care Food Inspector Name Role Phone Perry Hicks MD Primary Care Provider + [phone] Renard Garcia MD Unavailable [phone] Yohana Aragon DO Unavailable [phone] Yvette Velarde THREAD TWISTER Unavailable [phone] Pcp, No Primary Care Provider Unavailabl Carolina Lawrence SECURITY THREAT ANALYST Unavailable Unavailable Encounter Details Date Type Department Care Team (Late st Contact Info) Description 11/01/2022 Lab Requisition [facility] [address] [place] [address] Santiago England MD [address] [facility] [address] [place] [address] Atypical squamous cells of undetermined significance on [...] 11:21 AM EDT) Case Report Cytology Case: [id number] Authorizing Provider: Santiago England MD Collected: 11/01/2022 112 Ordering Location: [facility] Lab Received: 11/01/2022 112 Pathologist: Alayna Vaca MD Specimen: Vaginal, [id number] 11/02/2022 11:55 AM EDT [facility] Final Diagnosis A. VAGINAL PAP SMEAR (OUTSIDE CASE [id number], COLLECTED 08/25/2022) - LOW GRADE SQUAMOUS INTRAEPITHELIAL LESION (LSIL), SEE COMMENT. 11/02/2022 11:55 AM EDT [facility] at 1155 EDT Comment Refer to surgical case [id number] for subsequent biopsy results. 11/02/2022 11:55 AM EDT [facility] Clinical Information R87.610 - Atypical squamous cells of undetermined significance on cytologic smear of cervix (ASC-US) [ICD-10-CM] 11/02/2022 11:55 AM EDT [facility] Gross Description A. [id number] For clinical data and diagnosis (LSIL) for this specimen ([id number]) see final report issued by [facility] Pathology Department. 11/02/2022 11:55 AM EDT [facility] Vaginal structure / Unknown 11/01/2022 11:21 AM EDT 11/01/2022 11:22 AM EDT us Santiago England MD LAB PATHOLOGY ORDERABLES Final Result [facility] [address] [place] [id number] documented in this encounter Visit Diagnoses Diagnosis [...] documented as of this encounter Care Teams Food Inspector Relationship Specialty Start Date End Date Perry Hicks MD [address] [place] [address] PCP - General 12/05/20 11/09/23 Pcp, [address] [place] [address] PCP - General Family Medicine 11/10/23 Renard Garcia MD [address] [place] [address] Surgeon Neurosurgery 11/25/21 Yohana Aragon DO [address] [place] [address] Obstetrics and Gynecology 10/22/22 Yvette Velarde APRN [address] [place] [address] Nurse Practitioner Neurosurgery 11/10/23 Carolina Aquino LPN VALUE-BASED [place] [address] TCM Nurse 09/13/24 10/12/24 documented as of this encounter
--- OUTSIDE RECORDS SUMMARY | 2025-01-28 15:50 | XMS_ITS | Encounter Summary ---
Author Organization Healthcare Address [address] [place] [address] Care Team Providers Care Supervisor Hardboard Name Role Phone Perry Hicks MD Primary Care Provider + [phone] Renard Garcia MD Unavailable [phone] Yohana Aragon DO Unavailable [phone] Yvette Velarde AWS SOLUTION ARCHITECT Unavailable [phone] Pcp, No Primary Care Provider Unavailabl Carolina Lawrence GAMING TABLE OPERATOR Unavailable Unavailable Encounter Details Date Type Department Care Team (Late st Contact Info) Description 11/01/2022 Lab Requisition [facility] [address] [place] [address] Santiago England MD [address] [facility] [address] [place] [address] Atypical squamous cells of undetermined significance on [...] EDT) Case Report [facility] Consult Case: [id number] Authorizing Provider: Santiago England MD Collected: 11/01/2022 1243 Ordering Location: [facility] Lab Received: 11/01/2022 1243 Pathologist: Namrata Travis MD Specimen: Vaginal, [id number] 11/04/2022 9:18 AM EDT [facility] Final Diagnosis A. VAGINAL CUFF, 3:00 AND 9:00, BIOPSIES (OUTSIDE SLIDES [id number], 10/06/22): - FRAGMENTS OF PREDOMINANTLY CERVICAL STROMA WITH MINUTE FRAGMENTS OF CAUTERIZED SQUAMOUS EPITHELIUM - NO EVIDENCE OF HIGH GRADE DYSPLASIA OR CARCINOMA 11/04/2022 9:18 AM EDT [facility] at 0918 EDT Comment There is minimal intact epithelium available for review. Therefore these findings may not be apparel trimmings sales representative of the mucosal process. Clinical correlation, with potential rebiopsy, is suggested. 11/04/2022 9:18 AM EDT [facility] Clinical Information R87.610 - Atypical squamous cells of undetermined significance on cytologic smear of cervix (ASC-US) [ICD-10-CM] 11/04/2022 9:18 AM EDT [facility] Gross Description A. [id number] Received along with a corresponding pathology report from [facility] are 2 slide(s) labeled outside case: [id number] collected on 10/06/2022. 11/04/2022 9:18 AM EDT [facility] Note: A resident was involved in the service. I attest I examined the relevant preparations for the specimens and confirmed the diagnosis or interpretation. 11/04/2022 9:18 AM EDT [facility] Tissue Vaginal structure / Unknown 11/01/2022 12:43 PM EDT 11/01/2022 12:43 PM EDT us Santiago England MD LAB PATHOLOGY ORDERABLES Final Result [facility] [address] [place] [address] documented in this encounter Visit Diagnoses Diagnosis [...] documented as of this encounter Care Teams Supervisor Hardboard Relationship Specialty Start Date End Date Perry Hicks MD [address] [place] [address] PCP - General 12/05/20 11/09/23 Pcp, No [address] [place] [address] PCP - General Family Medicine 11/10/23 Renard Garcia MD [address] [place] [phone] Surgeon Neurosurgery 11/25/21 Yohana Aragon DO [address] [place] [address] Obstetrics and Gynecology 10/22/22 Yvette Velarde APRN [address] [place] [address] Nurse Practitioner Neurosurgery 11/10/23 Carolina Aquino LPN VALUE-BASED [place] [address] TCM Nurse 09/13/24 10/12/24 documented as of this encounter
--- OUTSIDE RECORDS SUMMARY | 2025-01-28 15:50 | XMS_ITS | Data Portability ---
Author Organization [place] - [facility] - [place] & [place] ADMIN Address [address] [place] [address] Assessment No assessment recorded. Plan of Treatment Reminders Order Date Submit Date Provider Last Modified By Organization Details Last Modified Time Details Appointments None recorded. Lab culture, urine + sensitivity 2022 023 [email or web address] Not available 3 08:03:01 urinalysis, dipstick 2022 023 [email or web address] [facility] [address], [address], 3 12:39:47 Referral None recorded. Procedures bladder scan (PROC) 2022 023 [email or web address] Not available 3 09:54:20 Surgeries None recorded. Imaging None recorded. Medication Orders Myrbetriq 50 mg tablet,exte nded release 2022 023 [email or web address] [facility], [address] [place] [address] [place], [id number], 3 16:51:53 Patient TargetsNo targets recorded. Patient InstructionsNo instructions recorded. Reason for Referral None Reported. Results Created Date Observation Date Name Description Value Unit Range Abnormal Flag Note LastModifiedBy Organization Detail LastModifiedTime 11/04/19 23 11/03/2022 CULTU RE URINE results LT 11-04 729 >100, 000 COL/M L Gram Negat edvin Rods Not Available [facility] (Lab Registration) [address] , [place], [address], 11/04/2022 07:30:58 11/04/19 23 11/03/2022 CULTU RE URINE note Unles s other ovalles noted testi ng perfo rmed at: [facility] [address] [facility] [address] [address] [phone] Juliocesar whitten MD CLIA: [id number] Not Available [facility] (Lab Registration) [address] [facility] [place], [address], 11/04/2022 07:30:58 11/04/19 23 11/03/2022 CULTU RE URINE culccur ===== ===== ===== ===== ===== ===== ===== ===== ===== ===== ===== ===== ===== ===== ===== ===== ===== ===== ===== ===== ===== ===== ===== ===== Speci men NO.: [id number] Exam Statu s: Final Proce dure: [...] L Gram Negat edvin Rods Not Available [facility] (Lab Registration) [address] , [place], [address], 11/05/2022 06:52:44 11/04/1911/03/2022 CULTU RE URINE note Unles s other ovalles noted testi ng perfo rmed at: [facility] [address] [place] [address] [phone] Juliocesar whitten MD CLIA: [id number] Not Available [facility] (Lab Registration) [address] , [place], [address], 11/05/2022 06:52:44 11/04/1911/03/2022 urina lysis , dipst ick Leukocytes (reference range) trace Not Available [facility] [address], [address], 11/03/2022 12:28:58 11/04/19 23 11/03/2022 urina lysis , dipst ick Nitrite (reference range:) positi ve Not Available [facility] [place] [address] [place], [address], 11/03/2022 12:28:58 11/04/19 23 11/03/2022 urina lysis , dipst ick Urobilinogen (reference range) 1 Not Available [address], [address], 11/03/2022 12:28:58 11/04/19 23 11/03/2022 urina lysis , dipst ick Protein (reference range) negati ve Not Available [address], [address], 11/03/2022 12:28:58 11/04/19 23 11/03/2022 urina lysis , dipst ick pH (reference range 5-8.5) 5.5 Not Available [address], [address], 11/03/2022 12:28:58 11/04/19 23 11/03/2022 urina lysis , dipst ick Blood (reference range:) negati ve Not Available [address], [address], 11/03/2022 12:28:58 11/04/19 23 11/03/2022 urina lysis , dipst ick Specific [place] (reference range) 1.025 Not Available [address], [address], 11/03/2022 12:28:58 11/04/19 23 11/03/2022 urina lysis , dipst ick Ketone (reference range) negati ve Not Available [address], [address], 11/03/2022 12:28:58 11/04/19 23 11/03/2022 urina lysis , dipst ick Bilirubin (reference range) negati ve Not Available [address], [address], 11/03/2022 12:28:58 11/04/19 23 11/03/2022 urina lysis , dipst ick Glucose (reference range) negati ve Not Available [facility] [address], [place], [address], 11/03/2022 12:28:58 Result Notes None recorded. Problems Name Problem SNOMED Code Status Onset Date Resolution Date Notes Provider Name and Address Organization Details Recorded Time Bilateral pendulous breasts 0275408198407 9103 Active 2022 Shaniqua merritt, REX - [facility] - [place] [facility] [place] 3 08:47:11 Chronic back pain 995773960 Active 2022 Shaniqua merritt, REX - [facility] - [place] & [place] 3 08:47:21 Daytime somnolence 073566516561 Active 2022 Rommelyusuf merritt, REX - [facility] - [place] & [place] 3 08:47:58 Dyspnea 451493928 Active 2022 Shaniqua merritt, REX - [facility] - [place] & [place] 3 08:48:05 Incomplete emptying of urinary bladder 931494621 Active 2022 Shaniqua merritt, REX - [facility] - [place] & [place] 3 08:48:19 Problem Notes None recorded. Procedures Surgical History Date Name Laterality Status Provider Name and Address Organization Details Recorded Time Total Hysterectomy completed Lori GOODMAN - [facility] - [place] [facility] [place] 10/13/2022 16:23:23 cholecystectomy completed Shaniqua GOODMAN - [facility] - [place] 10/13/2022 16:23:30 excision of neck completed Shaniqua Valente [facility] - [place] 10/13/2022 16:23:40 cervical biopsy completed Shaniqua GOODMAN - [facility] - [place] & [place] 10/13/2022 16:23:58 Imaging Results None recorded. Procedure Notes None recorded. Medical Equipment None Reported. Allergies Allergen ID Allergen Name Allergen Category Reaction Reaction Severity Criticality Documentation Date Start Date Code Code System Note Provider Name and Address Organization Details Recorded Time 63364 codeine medicatio n Not available Not available Not available 10/13/2022 2670 RxNorm REX Dominguez [facility] & [place] 3 16:22:07 51011 erythromy vito medicatio n Not available Not available Not available 10/13/2022 4053 RxNorm REX Dominguez [facility] & [place] 3 16:22:26 41514 Product containin g penicilli n (product) medicatio n Not available Not available Not available 10/13/2022 53305 8001 SNOMED REX Dominguez [facility] & [place] 3 16:22:35 Medications Name Sig Start Date [...] is your level of alcohol consumption? None [email or web address] Information not available 10/13/2022 Mental Status None recorded. Family History Nothing Reported. Medical History No medical history recorded. Gynecological HistoryNo gynecological history recorded. Obstetrics History GPAL:G 0 P 0 0 0 0 Past Encounters Encounter ID Performer Location Encounter Start Date Encounter Closed Date Diagnosis/Indication Diagnosis SNOMED-CT Code Diagnosis ICD10 Code Diagnosis Note [id number] Patrick Eugene Jr, MD [facility] [address] [address] 11/03/2022 11:24:55 11/03/2022 12:22:22 Overactive urinary bladder 807415494 N32.81 Patient with urge incontinen ce and wearing 5-6 heavy pads per day. She was placed on oxybutynin 10 mg last year without improvemen t. She is no longer on it. We will treat her with Myrbetriq 50 mg today. We have also discussed refraining from any caffeine use and observing timed voiding every 2-3 hours. Acute urin mame tract infection 350428448 N39.0 patient's urine is nitrite positive today. [...] Harrington Member ID Guarantor Name 12/11/2024 1 [facility] (MEDICAID HMO) Tonya Kamara [id number] Tonya Kamara Notes Date Note Type Note Provider Name and Address Organization Details Recorded Time 11/03/2022 text/html Patient is a 52-year-old white female referred by her OBGYN for difficulty emptying her bladder. Patient has a history of cervical cancer. I did see her while at [facility] last year for urinary symptoms. She was [...] is nitrite positive. Patrick Eugene Jr, MD [address] [place] [address], [address], [place], [address], [facility] - [facility] 11/15/2022 16:53:05 OBGyn Episode No OBEpisode recorded.
--- OUTSIDE RECORDS SUMMARY | 2025-01-28 15:50 | XMS_ITS | Clinical Summary ---
Author Organization Healthcare Address [address] [id number] Care Team Providers Care Doctorate Of Chiropractic Name Role Phone Renard Garcia MD Unavailable [phone] Yohana Aragon DO Unavailable [phone] Yvette Velarde QUARTER FOLDER Unavailable [phone] Pcp, No Primary Care Provider Unavailabl e [...] needed for irritation. 5 Active HYDROcodone-errol taminophen ([place]) 10-325 MG tablet Take 1 tablet (10 [...] (11/25/2021): Added automatically from request for surgery [id number] Immunizations Immunization Administration Dates Next Due Hep [...] Hep B Twinrix 3-dose series) 08/08/2018 07/11/2018 [id number] Vaccine (2 - Pfizer risk series) 04/27/2021 04/06/2021 [facility]-Breast Cancer Screening 11/15/2021 [facility]-Zoster Vaccines (1 of 2) 11/15/2021 [facility]-Influenza Vaccine (#1) 2025 [facility]-HIV Screening Completed 11/03/2023, 07/10/2019 [facility]-Obesity [...] this topic Medical Devices Implanted Type Area Wood Drill Operator Device Identifier Shelf Expiration Date Model / Serial / Lot One Level Plate, 12mm - [id number] Implanted:Qty : 1 on 11/28/2021 by Renard Garcia MD at [facility] Plate Spine Cervical [id number] 11/28/2022 [id number] / / Self Drilling Screw 14mm - [id number] Implanted:Qty : 2 on 11/28/2021 by Renard Garcia MD at [facility] Screw Spine Cervical [id number] 11/28/2022 [id number] / / Large Diameter 14mm - [id number] Implanted:Qty : 2 on 11/28/2021 by Renard Garcia MD at [facility] Screw Spine Cervical [id number] 11/28/2022 [id number] / / Nut Retainer - [id number] Implanted:Qty : 2 on 11/28/2021 by Renard Garcia MD at [facility] Washer Spine Cervical [id number] 11/28/2022 [id number] / / Knee Vanguard1 Cervical Preservon 7mm - [id number] - [id number] Implanted:Qty : 1 on 11/28/2021 by Renard Garcia MD at [facility] Spine Cervical [facility]-[id number] 07/05/2026 [id number] / [id number] / [id number] Graft Vivigen 1cc - [id number] - [id number] Implanted:Qty : 1 on 11/28/2021 by Renard Garcia MD at [facility] Spine Cervical [facility]-[id number] 11/18/2022 [id number] / [id number] / [id number] Procedures Procedure Name Priority Date/Time Associated Diagnosis Comments ACUTE HEPATITIS PANEL Routine 09/07/2024 8:04 AM EST ED HIV 1/2 ANTIBODY/ANTIGEN SCREEN WITH REFLEX TO HIV I/II DIFFERENTIATION STAT 11/03/2023 4:41 PM EDT from Last 3 Months or Most Recently Relevant to Health Maintenance Results * Hepatitis panel, acute (09/07/2024 8:04 AM EST) Hepatitis B Surf Antigen Negative Negative 09/07/2024 10:36 AM EST [facility] Hepatitis C Antibody Negative Negative 09/07/2024 10:36 AM EST [facility] Hepatitis A Antibody IgM Negative Negative 09/07/2024 10:36 AM EST [facility] Hepatitis B Core Antibody IgM Negative Negative 09/07/2024 10:36 AM EST [facility] Blood Venous blood specimen / Unknown Venipuncture / Unknown 09/07/2024 8:04 AM EST 09/07/2024 8:14 AM EST us Manjit W Peri QUARTER FOLDER, DNP LAB BLOOD ORDERABLES Fi nal Result [facility] [address] [place] [address] * ED HIV 1/2 Antibody/Antigen Screen w/Reflex [...] MD LAB BLOOD ORDERABLES Final Res ult [facility] [address] [place] [address] from Last 3 Months or Most Recently Relevant to Health Maintenance Insurance [employer] Advance Directives * Full Code (Latest Code Status on File) Date Activated Date Inactivated Comments 09/07/2024 6:46 AM 09/12/2024 6:58 PM Question Answer Comments Patient has decision-making capacity? Yes Care Teams Doctorate Of Chiropractic Relationship Specialty Start Date End Date Pcp, No [address] [place] [address] PCP - General Family Medicine 11/10/23 Renard Garcia MD [address] [facility] [address] [place] [address] Surgeon Neurosurgery 11/25/21 Yohana Aragon DO [address] [place] [address] Obstetrics and Gynecology 10/22/22 Yvette Velarde APRN [address] [place] [address] Nurse Practitioner Neurosurgery 11/10/23
--- OUTSIDE RECORDS SUMMARY | 2025-01-28 15:50 | XMS_ITS | Data Portability ---
Author Organization [facility] Address [address] [place] [address] Care Team Providers Care Residential Youth Counselor Name Role Phone MELLISSA TORRES Primary Care Provider [phone] JEFF ALEX Referring Provider [phone] Assessment Encounter Date Assessment Date Assessment LastModified by Organization Details LastModified Time 12/06/2023 12/06/2023 HPI: This is a 53-year-old female with low back and leg pain She was referred by [facility], history of chronic shoulder [...] Much of this encounter is an electronic foot setter/trans lation of spoken language to printed text. [...] and leg pain She was referred by [facility], history of chronic shoulder [...] requested. As she will be traveling to [place] for a for an extended period, she [...] for medication management and further treatment planning. [email or web address] Not available 01/20/2024 11:49:48 Plan of Treatment Reminders Order Date Submit Date Provider Last Modified By Organization Details Last Modified Time Details Appointments None recorded. Lab None recorded. Referral None recorded. Procedures None recorded. Surgeries None recorded. Imaging MRI, lumbar spine, w/o contrast 2023 024 [email or web address] [facility], [address] [place] [address], [place], [address], 4 11:21:12 XR, lumbosacra l spine, 4 or more view - AP/LAT/FLE X & EXT 2023 024 [email or web address] Not available 4 11:06:11 Medication Orders gabapentin 800 mg tablet 2023 024 [facility], [address] [place], [place] [address], [id number], 4 11:48:20 Medrol (Iron) 4 mg tablets in a dose pack 2023 024 [facility], [address] [place], [place] [address], [id number], 4 11:48:18 gabapentin 800 mg tablet 2023 024 [facility], [address] [place], [place] [address], [id number], 4 10:45:19 Patient TargetsNo targets recorded. Patient InstructionsNo instructions recorded. Reason for Referral None Reported. Results Created Date Observation Date Name Description Value Unit Range Abnormal Flag Note LastModifiedBy Organization Detail LastModifiedTime 01/20/20 24 01/20/2024 MRI, lumba r spine , w/o contr ast No observ ation record ed. [email or web address] [facility] [address], [address], 01/20/2024 11:49:51 01/20/20 24 01/20/2024 MRI, lumba r spine , w/o contr ast No observ ation record ed. [facility] [address], [address], 01/23/2024 13:38:27 Result Notes None recorded. Problems Name Problem SNOMED Code Status Onset Date Resolution Date Notes Provider Name and Address Organization Details Recorded Time Lumbar spondylosis 581159658 Active 2023 REX Patel [facility] 4 09:49:49 Lumbar radiculopathy 714039407 Active 2023 REX Patel [facility] 4 09:49:49 Chronic pain 52903173 Active 2023 REX Patel [facility] 4 09:49:49 Overweight 721993063 Active 2023 REX Patel [facility] 4 09:49:51 Problem Notes None recorded. Procedures Surgical History Date Name Laterality Status Provider Name and Address Organization Details Recorded Time ACDF completed Carmela Null [facility] 12/06/2023 09:50:37 Imaging Results None recorded. Procedure Notes None recorded. Medical Equipment None Reported. Allergies Allergen ID Allergen Name Allergen Category Reaction Reaction Severity Criticality Documentation Date Start Date Code Code System Note Provider Name and Address Organization Details Recorded Time 658788 Product containin g penicilli n (product) medicatio n Not available Not available Not available 12/05/2023 38617 8001 SNOMED REX Patel [facility] 4 09:07:30 263145 codeine medicatio n Not available Not available Not available 12/05/2023 2670 RxNorm REX Patel [facility] 4 09:07:34 932181 erythromy vito medicatio n Not available Not available Not available 12/05/2023 4053 RxNorm REX Patel [facility] 4 09:07:41 Medications Name Sig Start Date [...] in Arterial blood by Pulse oximetry Systolic And Diastolic Provider Name and Address Organization Details Last Updated DateTime 4 162.56 cm 20.3 kg/m2 02254.9 g 74 /min 99 % 99 % 124/77 mm[Hg] Carmela miranda [facility] 4 09:50:57 Date Recorded Body height Body mass index (BMI) Body weight Heart rate Oxygen saturation Oxygen saturation in Arterial blood by Pulse oximetry Systolic And Diastolic Provider Name and Address Organization Details Last Updated DateTime 4 162.56 cm 20.3 kg/m2 18512.9 g 76 /min 99 % 99 % 132/79 mm[Hg] Carmela miranda [facility] 4 11:21:27 Social History Question Answer Notes LastModified by Organizat ion Details LastModified Time Tobacco Smoking Status Current Every Day Smoker DIP Carmela merritt [facility] 12/06/2023 09:57:38 Do You Have An Advance Directive? No Information not available 12/06/2023 What Type Of Diet Are You Following? REGULAR Information not available 12/06/2023 What Is The Highest Grade Or Level Of School You Have Completed Or The Highest Degree You Have Received? [id number] Information not available 12/06/2023 Do You Have A Medical Power Of Customer Experience Specialist? No Information not available 12/06/2023 What Was [...] Ulcer Disease N Anemia N Heart Attack ([place]) N Diabetes N Cardiomyopathy N Bleeding Disorder [...] SNOMED-CT Code Diagnosis ICD10 Code Diagnosis Note [id number] MD Josse GARNER[address] [place] [address] 12/06/2023 09:04:53 12/06/2023 11:06:06 Lumbar radiculopathy 408242843 M54.16 [id number] Robson Mendes MD [place] [address] [place] [address] 01/20/2024 11:16:11 01/20/2024 11:42:30 Lumbar radiculopathy 545571513 M54.16 Health Concerns Section Related Observation LastModified by Organization Detai ls LastModified Time None Recorded Concern Status LastModified by Organization Details LastModified Time None Recorded Advance Directives Directive N: Payers Insurance Date Sequence Insurance Name Policy Number Policy Harrington Covered Member ID Harrington Member ID Guarantor Name 03/31/2024 1 [facility] (MEDICAID HMO) Tonya Kamara [id number] Tonya Kamaar Notes Date Note Type Note Provider Name [...] independently.;Diffic ulty bathing/grooming secondary to pain.;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 Prior Imaging:no recent studies Lumbar Surgery:none Interventional Treatment History:lumbar ESIs: no relief Physical Therapy:Facility: ([facility]); completed all recommended PT [...] visits, hospitalization or specialty visits. KIARRA CARNES [address] [place] [address], [phone], [facility] 01/20/2024 11:50:20 OBGyn Episode No OBEpisode recorded.
[2025-01-28 16:11] LABS: Troponin I < 0.01 ng/ml (0.00-0.034)
[2025-01-28] MEDS: METHOCARBAMOL 500MG TABLET 1500 MG PO (16:13)
[2025-01-28] MEDS: ACETAMINOPHEN 500MG TAB 1000 MG PO (16:14)
--- NOTE | 2025-01-28 16:39 | PC.NURSE ---
Pt called out and states she has family coming to get me so I'm ready to go . I let Dr Tabares know pt is wanted to leave. He states he will work on discharging her .
--- NOTE | 2025-01-28 16:47 | ECG_ITS ---
APPROVED REPORT Exam: Resting ECG HR:83 bpm ECG Measurements Heart Rate 83 AXES NJ 193 P 38 QRSd 85 QRS 35 QT 376 T 41 QTc 415 Conclusion SINUS RHYTHM NORMAL ECG Electronically signed by : KAL LOCKHART, 01/29/2025 08:13:10
[2025-01-28 16:49] VITALS: BP 154/99; PULSE 84; RESP 18; TEMP 36.8; O2SAT 98
--- NOTE | 2025-01-28 16:49 | PC.NURSE ---
Dr Tabares and Cathy Perez RN at bedside to discuss results.
== END 2025-01-28 16:56 | disposition home or self-care (01) ==
PROVIDERS: Emergency Provider Student in an Organized Health Care Education/Training Program
DX: R06.02 Shortness of breath (principal); E87.1 Hypo-osmolality and hyponatremia; G89.29 Other chronic pain
CPT/HCPCS: 71046; 80053; 82803; 84484; 85025; 93005; 99284

== ENCOUNTER 2025-03-09 20:16 | Observation (INO) | payer MEDICAID, SELFPAY ==
--- OUTSIDE RECORDS SUMMARY | 2025-01-29 00:34 | XMS_ITS | Encounter Summary ---
Author Organization Healthcare Address [address] [place] [address] Care Team Providers Care Safety Clothing And Equipment Developer Name Role Phone Renard Garcia MD Unavailable [phone] Yohana Aragon DO Unavailable [phone] Yvette Velarde SENIOR ACCOUNT DIRECTOR Unavailable [phone] Pcp, No Primary Care Provider Unavailabl e Reason for Visit * Reason Comments Multiple Complaints Encounter Details Date Type Department Care Team ([facility] st Contact Info) Description 01/29/2025 12:34 AM EDT - 01/29/2025 5:56 AM EDT Emergency [facility] Emergency Department [address] [place] [address] Jose Luis Tolbert, DO [address] [place] [address] Acute pain of left shoulder (Primary Dx); [...] (Tricor) 145 MG tablet 08/08/2024 HYDROcodone-acet aminophen (Shelocta) 10-325 MG tablet Take 1 tablet (10 [...] Identification: Tonya Kamara 54 y.o. female CSN: [id number] Admission: 01/29/2025 12:34 AM Primary Problem: No Principal Problem: There is no principal problem currently on the Problem List.Please update the Problem List and refresh. JEZ received page from medical team that Patient needs transportation scheduled for discharge. Financial screening completed and meets 300% FPG. Pt agreed and signed consent. JEZ scheduled a Lyft to transport Pt to [address] [place] [address]. JEZ relayed city bus driver's info and ETA to medical team. Zenaida Sharpe ASSOCIATE PRINCIPAL, CUSTODIAL OFFICER ED Social Work * ED Provider Notes [...] alert. Psychiatric: Mood and Affect: Mood normal. [place] Coma Scale Score: 15 ED Course & [...] Dose Route Action 01/29/2025 0212 EDT HYDROcodone-acetaminophen (Shelocta) 5-325 MG per tablet 5 mg of [...] Continuous Order ID Start Status Ordering Provider [id number] 01/29/25 0040 Completed JOSE LUIS TOLBERT [id number] 01/29/25 0800 Acknowledged JOSE LUIS TOLBERT [id number] 07/08/25 2000 Acknowledged SERGIO JOSE LUIS B [...] concerned for your health. Disposition Discharge AVS ([facility] [facility]) - Printed 01/29/2025 [1] Past Medical History: Diagnosis Date Awareness under anesthesia Back pain COPD (chronic obstructive pulmonary disease) ([facility]) Neck pain Personal history of other [...] Date CHOLECYSTECTOMY HYSTERECTOMY Bilateral 2019 Hysterectomy from [facility] BSO Enterocele repair for pelvic pain, endometriosis and fibroidper outside notes OTHER SURGICAL HISTORY N/A Uterine polypectomy from [facility] SPINE SURGERY WISDOM TOOTH EXTRACTION N/A Monarch tooth extraction from [facility] [3] Family History [...] the final edited report. Drafted by Shaggy Harrsi MD on 01/29/2025 4:02 AM Final report signed by Daniel Peña MD on 01/29/2025 4:12 AM us Jose Luis Tolbert DO IMG XR PROCEDURES Final Resu lt * Troponin T, High Sensitivity, 2 Hour, Plasma (01/29/2025 2:45 AM EDT) Troponin T, High Sensitivity, 2 Hour <6 <14 ng/L 01/29/2025 3:30 AM EDT [facility] Troponin Delta Interpretation Not Calculated 01/29/2025 3:30 AM EDT [facility] Comment:Specimen not collect ed within acceptable timeframe. Delta will not be calculated. Blood Venous blood specimen / Unknown Venipuncture / Unknown 01/29/2025 2:45 AM EDT 01/29/2025 3:00 AM EDT us Jose Luis Tolbert DO LAB BLOOD ORDERABLES Final R esult [facility] [address] [place] [address] * XR Shoulder Right 2+ Views (01/29/2025 [...] HIV 1/2 Differentiation (01/29/2025 12:49 AM EDT) [facility] HIV 1 & 2 Antibody/Antigen Screen Non Reactive Non Reactive 01/29/2025 1:41 AM EDT [facility] Comment:Screening for HIV 1 & 2 antibodies, and P24 antigen is NONREACTIVE. No confirmatory testing is required. Blood Venous blood specimen / Unknown Venipuncture / Unknown 01/29/2025 12:49 AM EDT 01/29/2025 1:01 AM EDT Jose Luis Tolbert DO LAB BLOOD ORDERABLES Final R esult [facility] [address] [place] [address] * Troponin now and 120 min (01/29/2025 12:49 AM EDT) [facility] Troponin T, High Sensitivity, 0 Hour <6 <14 ng/L 01/29/2025 1:26 AM EDT [facility] Blood Venous blood specimen / Unknown Venipuncture / Unknown 01/29/2025 12:49 AM EDT 01/29/2025 12:57 AM EDT Jose Luis Avlies Osyka DO LAB BLOOD ORDERABLES Final R esult [facility] [address] [place] [address] * (ABNORMAL) BMP (01/29/2025 12:49 AM EDT) [facility] Glucose, Plasma 77 74 - 99 mg/dL 01/29/2025 1:26 AM EDT [facility] BUN, Plasma 8 7 - 21 mg/dL 01/29/2025 1:26 AM EDT [facility] Creatinine, Plasma 0.67 0.60 - 1.10 mg/dL 01/29/2025 1:26 AM EDT [facility] BUN/Creatinine Ratio 12 01/29/2025 1:26 AM EDT [facility] Sodium, Plasma 133(L) 136 - 145 mmol/L 01/29/2025 1:26 AM EDT [facility] Potassium, Plasma 3.5(L) 3.6 - 4.9 mmol/L 01/29/2025 1:26 AM EDT [facility] Chloride, Plasma 97 97 - 107 mmol/L 01/29/2025 1:26 AM EDT [facility] CO2, Plasma 21(L) 22 - 29 mmol/L 01/29/2025 1:26 AM EDT [facility] Anion Gap 15 6 - 16 mmol/L 01/29/2025 1:26 AM EDT [facility] Total Calcium, Plasma 9.3 8.9 - 10.2 mg/dL 01/29/2025 1:26 AM EDT [facility] eGFRcr 104.7 mL/min/1.7 3m*2 01/29/2025 1:26 AM EDT [facility] Comment:Reported eGFRcr in m L/min/1.73m2 is based the CKD-EPI 2020 equation that does not use a race coefficient. Blood Venous blood specimen / Unknown Venipuncture / Unknown 01/29/2025 12:49 AM EDT 01/29/2025 12:57 AM EDT Jose Luis Tolbert DO LAB BLOOD ORDERABLES Final R esult [facility] [address] [place] [address] * (ABNORMAL) CBC with Diff (01/29/2025 12:49 AM EDT) WBC Count 5.63 3.70 - 10.30 10*3/uL LAB HEMATOLOGY METHOD 01/29/2025 1:01 AM EDT [facility] RBC Count 3.82(L) 3.90 - 5.20 10*6/uL LAB HEMATOLOGY METHOD 01/29/2025 1:01 AM EDT [facility] HGB 11.5 11.2 - 15.7 g/dL LAB HEMATOLOGY METHOD 01/29/2025 1:01 AM EDT [facility] HCT 34.1 34.0 - 45.0 % LAB HEMATOLOGY METHOD 01/29/2025 1:01 AM EDT [facility] Platelet Count 324 155 - 369 10*3/uL LAB HEMATOLOGY METHOD 01/29/2025 1:01 AM EDT [facility] MCV 89 79 - 98 fL LAB HEMATOLOGY METHOD 01/29/2025 1:01 AM EDT [facility] MCH 30.1 26.0 - 32.0 pg LAB HEMATOLOGY METHOD 01/29/2025 1:01 AM EDT [facility] MCHC 33.7 30.7 - 35.5 g/dL LAB HEMATOLOGY METHOD 01/29/2025 1:01 AM EDT [facility] RDW 14.6(H) 11.5 - 14.5 % LAB HEMATOLOGY METHOD 01/29/2025 1:01 AM EDT [facility] MPV 8.8 8.8 - 12.5 fL LAB HEMATOLOGY METHOD 01/29/2025 1:01 AM EDT [facility] nRBC 0.0 <=0.0 per 100 WBCs LAB HEMATOLOGY METHOD 01/29/2025 1:01 AM EDT [facility] Differential Type Automated LAB HEMATOLOGY METHOD 01/29/2025 1:01 AM EDT [facility] Neutrophils % 32 % LAB HEMATOLOGY METHOD 01/29/2025 1:01 AM EDT [facility] Lymphocytes % 61 % LAB HEMATOLOGY METHOD 01/29/2025 1:01 AM EDT [facility] Monocytes % 6 % LAB HEMATOLOGY METHOD 01/29/2025 1:01 AM EDT [facility] Eosinophils % 1 % LAB HEMATOLOGY METHOD 01/29/2025 1:01 AM EDT [facility] Basophils % 0 % LAB HEMATOLOGY METHOD 01/29/2025 1:01 AM EDT [facility] Immature Granulocytes % 0 % LAB HEMATOLOGY METHOD 01/29/2025 1:01 AM EDT [facility] Neutrophils Absolute 1.82 1.60 - 6.10 10*3/uL LAB HEMATOLOGY METHOD 01/29/2025 1:01 AM EDT [facility] Lymphocytes Absolute 3.41 1.20 - 3.90 10*3/uL LAB HEMATOLOGY METHOD 01/29/2025 1:01 AM EDT [facility] Monocytes Absolute 0.31 0.30 - 0.90 10*3/uL LAB HEMATOLOGY METHOD 01/29/2025 1:01 AM EDT [facility] Eosinophils Absolute 0.07 0.00 - 0.50 10*3/uL LAB HEMATOLOGY METHOD 01/29/2025 1:01 AM EDT [facility] Basophils Absolute 0.01 0.00 - 0.10 10*3/uL LAB HEMATOLOGY METHOD 01/29/2025 1:01 AM EDT [facility] Immature Granulocytes Absolute 0.01 0.00 - 0.06 10*3/uL LAB HEMATOLOGY METHOD 01/29/2025 1:01 AM EDT [facility] Blood Venous blood specimen / Unknown Venipuncture / Unknown 01/29/2025 12:49 AM EDT 01/29/2025 12:57 AM EDT Narrative [facility] - 01/29/2025 1:01 AM EDT Therapeutic decision making should be based on absolute values, rather than percentages. us Jose Luis Tolbert DO LAB BLOOD ORDERABLES Final R esult [facility] [address] [place] [address] * EKG now - STAT (adult) (01/29/2025 12:27 AM EDT) EKG DIAGNOSIS CLASS Borderline Abnormal MUSE ECG Ventricular Rate 95 BPM MUSE ECG Atrial Rate 95 BPM MUSE ECG WV Interval 176 ms MUSE ECG QRSD Interval 80 ms MUSE ECG QT Interval 368 ms MUSE ECG QTC Interval 462 ms MUSE ECG P [place] 39 degrees MUSE ECG R [place] 37 degrees MUSE ECG T Wave [place] 48 degrees MUSE ECG Diagnosis Normal sinus [...] Action Date Dose Rate Site HYDROcodone-acetaminophe n (Shelocta) 5-325 MG per tablet 5 mg of [...] Scheduled Medication Order 01/27/2025 01/28/2025 01/29/2025 HYDROcodone-acetaminophen (Shelocta) 5-325 MG per tablet 5 mg of [...] documented as of this encounter Care Teams Safety Clothing And Equipment Developer Relationship Specialty Start Date End Date Pcp, No [address] [place] [address] PCP - General Family Medicine 01/29/25 Renard Garcia MD [address] [place] [address] Surgeon Neurosurgery 11/25/21 Yohana Aragon DO [address] [place] [address] Obstetrics and Gynecology 10/22/22 Yvette Velarde APRN [address] [place] [address] Nurse Practitioner Neurosurgery 11/10/23 documented as of this encounter
--- OUTSIDE RECORDS SUMMARY | 2025-02-05 11:00 | XMS_ITS | Encounter Summary ---
[facility] [address] [place] [address] Care Team Providers Care Plaster Pattern Caster Name Role Phone Xavier Esposito MD Primary Care Provider + Reason for Referral * Pain Management (Routine) - Authorized Specialty Diagnoses / Procedures Referred By Contac t Referred To Contact Pain Medicine Diagnoses Chronic neck and back pain Procedures [place] OFFICE/OUTPATIENT NEW MODERATE MDM 45 MINUTES Xavier Esposito MD [address] [place] [address] [place] [address] Phone: tel: fax: Nikita Chance II, MD [address] [place] [address] Phone: tel: fax: Referral ID Status Reason Start Date Expiration Date Visits Requested Visits Authorized [id number] Authorized Specialty Services Required 02/05/2025 05/07/2026 1 1 * Consultation (Routine) - Authorized Specialty Diagnoses / Procedures Referred By Contac t Referred To Contact Diagnoses Gastroesophageal reflux disease without esophagitis Esophageal dysmotility Polyp of colon, unspecified part of colon, unspecified type Procedures [place] OFFICE/OUTPATIENT NEW MODERATE MDM 45 MINUTES Xavier Esposito MD [address] [place] [address] Phone: tel: fax: Tim Jimenez MD [address] [place] [address] Phone: tel: fax: Referral ID Status Reason Start Date Expiration Date Visits Requested Visits Authorized Authorized Specialty Services Required 02/05/2025 05/07/2026 1 1 Scheduling Instructions Refer to Dr. Tim Jimenez * Consultation (Routine) - Closed Specialty Diagnoses / Procedures Referred By Contac t Referred To Contact Orthopedic Surgery Diagnoses Injury of right rotator cuff, subsequent encounter Xavier Esposito MD [address] [place] [address] Phone: tel: fax: Rod Au MD [facility] [place] [address] Phone: tel: fax: Referral ID Status Reason Start Date Expiration Date V isits Requested Visits Authorized Closed Specialty Services Required 02/05/2025 05/07/2026 1 1 Scheduling Instructions Refer to Dr. [facility] in [place] * Consultation (Routine) - Closed Specialty Diagnoses / Procedures Referred By Contac t Referred To Contact Pulmonary Disease Diagnoses Lung disease Dyspnea on exertion Procedures [place] OFFICE/OUTPATIENT NEW MODERATE MDM 45 MINUTES Xavier Esposito MD [address] [place] [address] Phone: tel: fax: Albert Linares MD Referral ID Status Reason Start Date Expiration Date V isits Requested Visits Authorized Closed Specialty Services Required 02/05/2025 05/07/2026 1 1 Scheduling Instructions Refer to Dr. Albert Linares Reason for Visit * Reason Comments ER f/u [facility] Encounter Details Date Type Department Care Team (Late st Contact Info) Description 02/05/2025 11:00 AM EDT Office Visit [facility] [address] [place] [phone] Xavier Esposito MD [address] [facility] [place] [address] Lung disease (Primary Dx); Dyspnea on [...] swallowing. Patient has been seen at the [facility] as well as at [facility] by orthopedic designer. Testing performed in August 2024 showed esophageal [...] prescriptions from other primary care providers in [place]. Right shoulder pain. Patient was seen at the [facility] 1 week ago after [place]. She believes the fall may have caused a rotator cuff tear. Anxiety. Patient is seeing psychiatric PULVI MIXER OPERATOR at [facility] who is prescribed the patient's clonazepam The [...] management physician. This applies to both her [place] and her gabapentin 4. Patient will be referred to local orthopedics for her right rotator cuff injury 5. Patient's anxiety is a significant contributor to her review of her health as well as control ofher chronic conditions exacerbating symptoms of dyspnea, exacerbating symptoms of pain. She should continue to see behavioral health at [facility] 6. Long discussion was had with the patient regarding the fractured nature of her care. This year alone she has seen 3 different primary care physicians, but goes to the emergency room at the [facility], all while living in [place]. I have recommended that she get established with [facility] care system to allow for better care. She will be moving to [place]. She will continue to come tothis office as her PCP but specialist referrals will be made within [facility] with the exception of her already [...] Description 04/08/2025 11:45 AM EDT Office Visit [facility] [address] [place] [phone] Xavier Esposito MD [address] [place] [address] documented as of this encounter Visit Diagnoses [...] pain documented in this encounter Care Teams Plaster Pattern Caster Relationship Specialty Start Date End Date Xavier Esposito MD [address] [place] [address] PCP - General Family Medicine 09/24/24 documented as of this encounter
[2025-03-09] VITALS (9 sets, daily range): BP systolic 148–170; BP diastolic 80–118; PULSE 82–100; RESP 14–24; TEMP 36.7; O2SAT 96–99; BMI 23.1
--- NOTE | 2025-03-09 20:24 | ECG_ITS ---
APPROVED REPORT Exam: Resting ECG HR:104 bpm ECG Measurements Heart Rate 104 AXES FL 140 P 56 QRSd 90 QRS 54 QT 361 T 38 QTc 421 Conclusion SINUS TACHYCARDIA ABNORMAL RHYTHM ECG UNCONFIRMED REPORT Sinus tachycardia with a ventricular rate of [address] elevation or depression. QTc of 421 Electronically signed by : ISAIAS GONZALEZ, 03/09/2025 22:32:49
--- NOTE | 2025-03-09 20:27 | HMH.EDGENADL ---
Discharge Plan Disposition Patient Disposition: Admitted Condition: Good Prescriptions Prescriptions: No Action albuterol sulfate 90 mcg/actuation HFA aerosol inhaler 1 inh inhalation Q6H PRN hydrocortisone-aloe vera [Anti-Itch(hydrocortisone)-Aloe] 1 % cream 1 applic topical TID PRN (Reason: skin irritation) Qty: 28 5RF benzonatate 100 mg capsule 100 mg PO DAILY Qty: 60 3RF Rx Instructions: TAKE 1 CAPSULE BY MOUTH 3 TIMES A DAY NEEDED FOR COUGH hydrocodone-acetaminophen 10-325 mg tablet 1 tab PO Q8H PRN (Reason: pain) Qty: 45 0RF omeprazole 40 mg capsule,delayed release(DR/EC) 40 mg PO DAILY Qty: 90 1RF Rx Instructions: TAKE ONE CAPSULE BY MOUTH ONCE A DAY FOR GERD clonazepam [Klonopin] 0.5 mg tablet 0.5 mg PO BID 30 Days Qty: 60 0RF albuterol sulfate 2.5 mg /3 mL (0.083 %) solution for nebulization See Rx Instructions .ROUTE .COMPLEX Qty: 180 1RF Dose Instruction: INHALE CONTENTS OF 2 VIALS VIA NEBULIZER EVERY 6 HOURS NEEDED FOR SHORTNESS OF BREATH OR WHEEZING Rx Instructions: INHALE CONTENTS OF 2 VIALS VIA NEBULIZER EVERY 6 HOURS NEEDED FOR SHORTNESS OF BREATH OR WHEEZING levothyroxine 25 mcg tablet 25 mcg PO DAILY Qty: 90 0RF Rx Instructions: TAKE ONE TABLET BY MOUTH ONCE A DAY FOR THYROID loperamide 2 mg capsule 6 mg PO BID PRN (Reason: loose stool) Qty: 30 0RF fluticasone propionate 50 mcg/actuation spray,suspension 1 spray INTRANASAL BID PRN (Reason: allergy symptoms) Qty: 16 3RF promethazine 25 mg tablet 25 mg PO BIDP PRN (Reason: Nausea And Vomiting) Rx Instructions: TAKE ONE TABLET BY MOUTH 3 TIMES A DAY Referrals Follow up/Referrals: Eric Munguia MD [Staff Physician, Cardiology] - See instructions Provider,Referral, [Referring, Medical] - See instructions Clinical Impressions Clinical Impression: Unstable angina, Medication reaction Print Language Print Language: [place] Discharge ED Provider: Raj Tabares General Adult HPI <Kareen Wyman APRN - Last Filed: 03/09/25 21:30> General Chief complaint: Chest Pain Stated complaint: chest pain Time Seen by Provider: 03/09/25 20:26 History of Present Illness HPI narrative: patient is a 54-year-old female PMHx colon cancer (chemo and radiation), COPD, alcohol use disorder, anxiety who presents to the ED for complaints of chest pain via EMS. Patient states that he has centrally located chest pain that started earlier today. EMS administered 2 nitro and 1 aspirin and route. Patient states her chest pain is still a 6 out of 10. She states it feels like a sharp stabbing pain. Patient reports that she has not had her anxiety medication today. Related Data Home Medications ?Medication ?Instructions ?Recorded ?Confirmed promethazine 25 mg tablet 25 mg PO BIDP PRN Nausea And 07/24/24 02/27/25 Vomiting albuterol sulfate 90 mcg/actuation 1 inh inhalation Q6H PRN 11/22/24 02/27/25 aerosol inhaler Previous Rx's ?Medication ?Instructions ?Recorded hydrocortisone-aloe vera 1 % 1 applic topical TID PRN skin 12/27/24 topical cream (Anti-Itch irritation #28 grams (hydrocortisone) with Aloe) omeprazole 40 mg capsule,delayed 40 mg PO DAILY #90 caps 01/07/25 release benzonatate 100 mg capsule 100 mg PO DAILY #60 caps 01/16/25 hydrocodone 10 mg-acetaminophen 1 tab PO Q8H PRN pain #45 tabs 01/16/25 325 mg tablet clonazepam 0.5 mg tablet (Klonopin) 0.5 mg PO BID anxiety 30 days #60 01/17/25 tabs albuterol sulfate 2.5 mg/3 mL See Rx Instructions .Route 02/04/25 (0.083 %) solution for nebulization .COMPLEX #180 mL levothyroxine 25 mcg tablet 25 mcg PO DAILY #90 tabs 02/21/25 fluticasone propionate 50 1 spray intranasal BID PRN allergy 02/25/25 mcg/actuation nasal symptoms #16 grams spray,suspension loperamide 2 mg capsule 6 mg (3 x 2 mg) PO BID PRN loose 02/25/25 stool #30 caps Allergies Allergy/AdvReac Type Severity Reaction Status Date / Time lidocaine Allergy Intermediate Red, Rash, Verified 02/27/25 09:50 Itching codeine (CODEINE) Allergy Unknown VOMITING Verified 02/27/25 09:50 erythromycin base Allergy Unknown ITCHING/HIV Verified 02/27/25 09:50 (ERYTHROMYCIN BASE) ES Penicillins (PENICILLINS) Allergy Unknown VOMITING Verified 02/27/25 09:50 ibuprofen Allergy Hives Verified 02/27/25 09:50 tramadol AdvReac Hives Verified 02/27/25 09:50 PFSH <Kareen Wyman APRN - Last Filed: 03/09/25 21:30> [facility] Disclaimer: The information contained in this section may have been updated after the patient was seen, as this information can be updated by other users. Medical History Rheumatic arteritis COPD (chronic obstructive pulmonary disease) Hyperlipidemia History of ovarian cancer Colon cancer LGSIL Pap smear of vagina Back pain Bilateral pendulous breasts Feeling of incomplete bladder emptying Encounter for pre-operative cardiovascular clearance Chest tightness Daytime somnolence Abnormal electrocardiography Dyspnea Lumbar disc disease with radiculopathy Surgical History History of cranial surgery Hx of neck surgery cervical History of hysterectomy History of cholecystectomy Family History Other Anemia Asthma Cancer Coronary artery disease Diabetes Family history of bronchitis Family history of myocardial infarction Family history of stroke Heart attack Hyperlipidemia Hypertension Kidney disease Stroke Thyroid disorder Social History Smoking Status: Never smoker second hand exposure: No alcohol intake: current alcohol intake frequency: holidays/special occasions only substance use type: denies use current occupational status: disabled Travel in the last 8 weeks?: None household members: none housing: house lives independently: Yes marital status: single number of children: 3 education level: high school current occupational exposures/hazards: No caffeine: No special christopher needs: No agree to transfusion: No do you feel safe at home: Yes victim of physical abuse: No victim of emotional abuse: No victim of sexual abuse: No would you like helpful sources: No Have you lived/traveled outside [place] in past 30 days?: No Contact w/someone who lives/traveled outside US past 30 days?: No Exposure to someone with infectious disease in past 14 days?: No Do you have a fever (greater than 100.4 F or 38 C)?: No Have you tested positive for COVID-19?: No Exposed to someone with COVID-19 in past 14 days?: No Do you have a sore throat?: No Do you have a cough?: No Do you have any weakness?: No Do you have any diarrhea?: No Are you experiencing any unusual bleeding?: No Do you have any muscle aches/pain?: No Do you have any abdominal pain?: No Are you experiencing loss of taste or smell?: No Other Medical History Have you received the Flu Vaccine for this season: No Have you received the Pneumonia Vaccine: No <Kareen Wyman APRN - Last Filed: 03/09/25 21:30> ROS Obtained: Yes Systems reviewed as appropriate & no additional complaints except as documented Physical Exam <Kareen Wyman APRN - Last Filed: 03/09/25 21:30> General General appearance: alert and anxious Eye Eye exam: Present PERRL and EOMI Chest Chest inspection: Present normal inspection Respiratory Respiratory exam: Present normal lung sounds bilaterally Cardiovascular Cardiovascular exam: Present tachycardia Abdominal Exam Abdominal exam: Present soft Back Exam Back exam: Present full ROM; Absent tenderness Neurological Exam Neurological exam: Present alert and oriented X3 Skin Skin exam: Present warm Medical Decision Making <Kareen Wyman APRN - Last Filed: 03/09/25 21:30> Medical Records Screening: Per USPSTF and CDC recommendations, given the prevalence of disease in our region, it is our hospital?s policy to screen for HIV and viral Hepatitis for all patients aged 18 and over and those with ongoing risk factors. [place] Inquiry Pt receiving controlled substance: No Vital Signs: 03/09/25 20:29 03/09/25 21:00 03/09/25 21:13 Temperature 98.1 F Temperature Source Oral Pulse Rate 82 83 Pulse Rate [Right] 98 H Respiratory Rate 16 18 24 Blood Pressure 152/86 H 152/86 H Blood Pressure [Right Arm] 148/89 H Blood Pressure Mean [Right Arm] 108 02 Sat by Pulse Oximetry 98 99 98 Oxygen Delivery Method Room Air 03/09/25 21:30 03/09/25 22:00 03/09/25 22:30 Temperature Temperature Source Pulse Rate 85 100 H 96 H Pulse Rate [Right] Respiratory Rate 22 20 18 Blood Pressure 153/92 H 158/118 H 148/80 H Blood Pressure [Right Arm] Blood Pressure Mean [Right Arm] 02 Sat by Pulse Oximetry 98 97 97 Oxygen Delivery Method 03/09/25 23:02 03/09/25 23:24 03/09/25 23:30 Temperature Temperature Source Pulse Rate 98 H 97 H 83 Pulse Rate [Right] Respiratory Rate 14 16 15 Blood Pressure 170/87 H 170/87 H 166/85 H Blood Pressure [Right Arm] Blood Pressure Mean [Right Arm] 02 Sat by Pulse Oximetry 97 97 96 Oxygen Delivery Method Lab Data Lab Results 03/09/25 20:07: WBC 7.3, RBC 4.07 L, Hgb 12.5, Hct 37.0, MCV 90.9, MCH 30.7, MCHC 33.8, RDW 16.3, Plt Count 348, MPV 9.5, Neut % (Auto) 43.7, Lymph % (Auto) 49.7, [place] % (Auto) 5.3, Eos % (Auto) 0.5, Baso % (Auto) 0.5, Neut # (Auto) 3.2, Lymph # (Auto) 3.6, [place] # (Auto) 0.4, Eos # (Auto) 0.0, Baso # (Auto) 0.0, Sodium 138, Potassium 3.6, Chloride 102, Carbon Dioxide 27, Anion Gap 12.6, BUN 9, Creatinine 0.60, Estimated Creat Clear 105, Estimated GFR 105, Est GFR ( Amer) 127, Glucose 115 H, Calcium 9.8, Total Bilirubin 0.9, AST 98 H, ALT 37, Alkaline Phosphatase 139 H, Troponin I < 0.01, Total Protein 8.9 H, Albumin 5.0, Globulin 3.9 H, Albumin/Globulin Ratio 1.3, Plasma/Serum Alcohol < 10, HCV Ab DAISY w/Rflx PCR Qn Negative, HIV Ag/Ab Combo Qual Negative 03/09/25 20:41: Urine Color Yellow, Urine Appearance Clear, Urine pH 6.5, Ur Specific [place] <= 1.005, Urine Protein Negative, Urine Glucose (UA) Negative, Urine Ketones Negative, Urine Blood Negative, Urine Nitrate Negative, Urine Bilirubin Negative, Urine Urobilinogen 0.2, Ur Leukocyte Esterase Negative, Urine RBC None, Urine WBC 5-10, Ur Squamous Epith Cells 3-5, Urine Bacteria 4+, Urine Opiates Screen Negative, Urine Methadone Screen Negative, Ur Barbituates Screen Negative, Ur Phencyclidine Scrn Negative, Ur Amphetamines Screen Negative, U Benzodiazepines Scrn Negative, Urine Cocaine Screen Negative, U Marijuana (THC) Screen Negative 03/09/25 23:24: Troponin I < 0.01 03/09/25 20:07 03/09/25 20:07 Orders (Tests/Meds): ED MEDICATIONS Discontinued Medications Generic Name Dose Route Start Last Admin Trade Name Freq PRN Reason Stop Dose Admin Acetaminophen 1,000 mg 03/09/25 23:07 03/09/25 23:19 Acetaminophen 500mg Tab PO 03/09/25 23:08 1,000 mg ONCE ONE Administration Hydrocodone Bitart/Acetaminophen 1 tab 03/09/25 21:26 03/09/25 21:32 Apap/Hydrocodone 325mg/7.5mg Tab PO 03/09/25 21:27 1 tab ONCE ONE Administration Belladonna Alkaloids 60 ml 03/09/25 23:07 03/09/25 23:19 Belladonna Alkaloids 60 Ml Ml PO 03/09/25 23:08 60 ml ONCE ONE Administration Clonazepam 0.5 mg 03/09/25 21:07 03/09/25 21:12 Clonazepam 0.5mg Tablet PO 03/09/25 21:08 0.5 mg ONCE ONE Administration Diphenhydramine HCl 50 mg 03/10/25 00:01 03/10/25 00:05 Diphenhydramine 50mg/Ml Vial IV 03/10/25 00:02 50 mg ONCE ONE Administration Ondansetron HCl 4 mg 03/09/25 22:13 03/09/25 22:17 Ondansetron 4mg/2ml Vial IV 03/09/25 22:14 4 mg ONCE ONE Administration Ondansetron HCl 4 mg 03/10/25 00:04 03/10/25 00:05 Ondansetron 4mg/2ml Vial IV 03/10/25 00:05 4 mg ONCE ONE Administration ORDERS Category Date Time Status CXR --portable [XR chest portable] Stat Exams 03/09/25 20:28 Completed CBC w/Auto Diff [Complete Blood Count Auto Diff] Stat Lab 03/09/25 20:07 Completed CMP [Comprehensive Metabolic Panel] Stat Lab 03/09/25 20:07 Completed Ethyl Alcohol Stat Lab 03/09/25 20:07 Completed HIV Combo Stat Lab 03/09/25 20:07 Completed Hepatitis C Ab Qual. W/ RFX Stat Lab 03/09/25 20:07 Completed Trop I [Troponin I] Stat Lab 03/09/25 20:07 Completed Troponin I Q3H Lab 03/09/25 23:24 Completed Troponin I Q3H Lab 03/10/25 02:30 Ordered UDS [Drug Screen,Urine] Stat Lab 03/09/25 20:41 Completed Urinalysis and Microscopic Stat Lab 03/09/25 20:41 Completed Urine Culture Stat Micro 03/09/25 20:41 Received Medical Decision Narrative: In summary, patient is a 54-year-old female PMHx colon cancer (chemo and radiation), COPD, alcohol use disorder, anxiety who presents to the ED for complaints of chest pain via EMS. Patient states that he has centrally located chest pain that started earlier today. EMS administered 2 nitro and 1 aspirin and route. Patient states her chest pain is still a 6 out of 10. She states it feels like a sharp stabbing pain. Patient reports that she has not had her anxiety medication today. Denies any falls or trauma. She states that she missed her last chemo dose, has not had chemo in 1 month. Denies fever, chills, body aches, headache, visual disturbances, abdominal pain, nausea, vomiting, dysuria. Upon initial evaluation patient is alert, oriented and cooperative. She is tachycardic, very anxious. Physical exam is unremarkable, abdomen is soft and nontender, chest wall is nontender. Differential diagnoses include ACS, pulmonary embolism, COPD exacerbation, infectious process, anxiety, among others. Discussed with patient will proceed with labs, EKG and chest x-ray. CBC unremarkable for leukocytosis, stable H&H. CMP unremarkable for any actionable abnormalities. First troponin < 0.01. Urinalysis unremarkable. Serum alcohol < 10. Patient requesting her evening medications, clonazepam and hydrocodone. Confirm these on patient's medication list and administer those. Care transferred to attending. <Raj Tabares MD - Last Filed: 03/09/25 23:29> Vital Signs: 03/09/25 20:29 03/09/25 21:00 03/09/25 21:13 Temperature 98.1 F Temperature Source Oral Pulse Rate 82 83 Pulse Rate [Right] 98 H Respiratory Rate 16 18 24 Blood Pressure 152/86 H 152/86 H Blood Pressure [Right Arm] 148/89 H Blood Pressure Mean [Right Arm] 108 02 Sat by Pulse Oximetry 98 99 98 Oxygen Delivery Method Room Air 03/09/25 21:30 03/09/25 22:00 03/09/25 22:30 Temperature Temperature Source Pulse Rate 85 100 H 96 H Pulse Rate [Right] Respiratory Rate 22 20 18 Blood Pressure 153/92 H 158/118 H 148/80 H Blood Pressure [Right Arm] Blood Pressure Mean [Right Arm] 02 Sat by Pulse Oximetry 98 97 97 Oxygen Delivery Method 03/09/25 23:02 03/09/25 23:24 03/09/25 23:30 Temperature Temperature Source Pulse Rate 98 H 97 H 83 Pulse Rate [Right] Respiratory Rate 14 16 15 Blood Pressure 170/87 H 170/87 H 166/85 H Blood Pressure [Right Arm] Blood Pressure Mean [Right Arm] 02 Sat by Pulse Oximetry 97 97 96 Oxygen Delivery Method Lab Data Lab Results 03/09/25 20:07: WBC 7.3, RBC 4.07 L, Hgb 12.5, Hct 37.0, MCV 90.9, MCH 30.7, MCHC 33.8, RDW 16.3, Plt Count 348, MPV 9.5, Neut % (Auto) 43.7, Lymph % (Auto) 49.7, [place] % (Auto) 5.3, Eos % (Auto) 0.5, Baso % (Auto) 0.5, Neut # (Auto) 3.2, Lymph # (Auto) 3.6, [place] # (Auto) 0.4, Eos # (Auto) 0.0, Baso # (Auto) 0.0, Sodium 138, Potassium 3.6, Chloride 102, Carbon Dioxide 27, Anion Gap 12.6, BUN 9, Creatinine 0.60, Estimated Creat Clear 105, Estimated GFR 105, Est GFR ( Amer) 127, Glucose 115 H, Calcium 9.8, Total Bilirubin 0.9, AST 98 H, ALT 37, Alkaline Phosphatase 139 H, Troponin I < 0.01, Total Protein 8.9 H, Albumin 5.0, Globulin 3.9 H, Albumin/Globulin Ratio 1.3, Plasma/Serum Alcohol < 10, HCV Ab DAISY w/Rflx PCR Qn Negative, HIV Ag/Ab Combo Qual Negative 03/09/25 20:41: Urine Color Yellow, Urine Appearance Clear, Urine pH 6.5, Ur Specific [place] <= 1.005, Urine Protein Negative, Urine Glucose (UA) Negative, Urine Ketones Negative, Urine Blood Negative, Urine Nitrate Negative, Urine Bilirubin Negative, Urine Urobilinogen 0.2, Ur Leukocyte Esterase Negative, Urine RBC None, Urine WBC 5-10, Ur Squamous Epith Cells 3-5, Urine Bacteria 4+, Urine Opiates Screen Negative, Urine Methadone Screen Negative, Ur Barbituates Screen Negative, Ur Phencyclidine Scrn Negative, Ur Amphetamines Screen Negative, U Benzodiazepines Scrn Negative, Urine Cocaine Screen Negative, U Marijuana (THC) Screen Negative 03/09/25 23:24: Troponin I < 0.01 Orders (Tests/Meds): ED MEDICATIONS Discontinued Medications Generic Name Dose Route Start Last Admin Trade Name Freq PRN Reason Stop Dose Admin Acetaminophen 1,000 mg 03/09/25 23:07 03/09/25 23:19 Acetaminophen 500mg Tab PO 03/09/25 23:08 1,000 mg ONCE ONE Administration Hydrocodone Bitart/Acetaminophen 1 tab 03/09/25 21:26 03/09/25 21:32 Apap/Hydrocodone 325mg/7.5mg Tab PO 03/09/25 21:27 1 tab ONCE ONE Administration Belladonna Alkaloids 60 ml 03/09/25 23:07 03/09/25 23:19 Belladonna Alkaloids 60 Ml Ml PO 03/09/25 23:08 60 ml ONCE ONE Administration Clonazepam 0.5 mg 03/09/25 21:07 03/09/25 21:12 Clonazepam 0.5mg Tablet PO 03/09/25 21:08 0.5 mg ONCE ONE Administration Diphenhydramine HCl 50 mg 03/10/25 00:01 03/10/25 00:05 Diphenhydramine 50mg/Ml Vial IV 03/10/25 00:02 50 mg ONCE ONE Administration Ondansetron HCl 4 mg 03/09/25 22:13 03/09/25 22:17 Ondansetron 4mg/2ml Vial IV 03/09/25 22:14 4 mg ONCE ONE Administration Ondansetron HCl 4 mg 03/10/25 00:04 03/10/25 00:05 Ondansetron 4mg/2ml Vial IV 03/10/25 00:05 4 mg ONCE ONE Administration ORDERS Category Date Time Status CXR --portable [XR chest portable] Stat Exams 03/09/25 20:28 Completed CBC w/Auto Diff [Complete Blood Count Auto Diff] Stat Lab 03/09/25 20:07 Completed CMP [Comprehensive Metabolic Panel] Stat Lab 03/09/25 20:07 Completed Ethyl Alcohol Stat Lab 03/09/25 20:07 Completed HIV Combo Stat Lab 03/09/25 20:07 Completed Hepatitis C Ab Qual. W/ RFX Stat Lab 03/09/25 20:07 Completed Trop I [Troponin I] Stat Lab 03/09/25 20:07 Completed Troponin I Q3H Lab 03/09/25 23:24 Completed Troponin I Q3H Lab 03/10/25 02:30 Ordered UDS [Drug Screen,Urine] Stat Lab 03/09/25 20:41 Completed Urinalysis and Microscopic Stat Lab 03/09/25 20:41 Completed Urine Culture Stat Micro 03/09/25 20:41 Received ECG Data Tracing #1: I reviewed this ECG and interpreted as documented below: Sinus tachycardia with a ventricular rate of [address] elevation or depression. QTc of 421 HEART Score History (anamnesis): Slightly suspicious ECG: Normal Age: 45-65 years Risk factors: 1-2 risk factors Troponin: </= normal limit HEART Score: 2 Medical Decision Narrative: In summary, patient is a 54-year-old female PMHx colon cancer (chemo and radiation), COPD, alcohol use disorder, anxiety who presents to the ED for complaints of chest pain via EMS. Patient states that he has centrally located chest pain that started earlier today. EMS administered 2 nitro and 1 aspirin and route. Patient states her chest pain is still a 6 out of 10. She states it feels like a sharp stabbing pain. Patient reports that she has not had her anxiety medication today. Denies any falls or trauma. She states that she missed her last chemo dose, has not had chemo in 1 month. Denies fever, chills, body aches, headache, visual disturbances, abdominal pain, nausea, vomiting, dysuria. Upon initial evaluation patient is alert, oriented and cooperative. She is tachycardic, very anxious. Physical exam is unremarkable, abdomen is soft and nontender, chest wall is nontender. Differential diagnoses include ACS, pulmonary embolism, COPD exacerbation, infectious process, anxiety, among others. Discussed with patient will proceed with labs, EKG and chest x-ray. CBC unremarkable for leukocytosis, stable H&H. CMP unremarkable for any actionable abnormalities. First troponin < 0.01. Urinalysis unremarkable. Serum alcohol < 10. Patient requesting her evening medications, clonazepam and hydrocodone. Confirm these on patient's medication list and administer those. Care transferred to attending. Raj Tabares MD I was consulted by the PITA, and we discussed the complexity of the problems being addressed. I approve the treatment and management plan for this patient's care in the emergency department, thus performing a substantive portion of the medical decision making. Patient did complain of some nausea and was given 4 mg of IV Zofran. Her workup thus far has been unremarkable with initial troponin less than 0.01. EKG without evidence of ischemia. Patient has tolerated oral intake here in the emergency department but is now complaining of worsening chest pain. Will administer 1 g of Tylenol as well as GI cocktail. Patient's repeat troponin is pending. It 2315, patient's care was transferred to the oncoming physician, Dr. Parra, pending repeat troponin. <Joaquin Parra MD - Last Filed: 03/10/25 00:14> Vital Signs: 03/09/25 20:29 03/09/25 21:00 03/09/25 21:13 Temperature 98.1 F Temperature Source Oral Pulse Rate 82 83 Pulse Rate [Right] 98 H Respiratory Rate 16 18 24 Blood Pressure 152/86 H 152/86 H Blood Pressure [Right Arm] 148/89 H Blood Pressure Mean [Right Arm] 108 02 Sat by Pulse Oximetry 98 99 98 Oxygen Delivery Method Room Air 03/09/25 21:30 03/09/25 22:00 03/09/25 22:30 Temperature Temperature Source Pulse Rate 85 100 H 96 H Pulse Rate [Right] Respiratory Rate 22 20 18 Blood Pressure 153/92 H 158/118 H 148/80 H Blood Pressure [Right Arm] Blood Pressure Mean [Right Arm] 02 Sat by Pulse Oximetry 98 97 97 Oxygen Delivery Method 03/09/25 23:02 03/09/25 23:24 03/09/25 23:30 Temperature Temperature Source Pulse Rate 98 H 97 H 83 Pulse Rate [Right] Respiratory Rate 14 16 15 Blood Pressure 170/87 H 170/87 H 166/85 H Blood Pressure [Right Arm] Blood Pressure Mean [Right Arm] 02 Sat by Pulse Oximetry 97 97 96 Oxygen Delivery Method Lab Data Lab Results 03/09/25 20:07: WBC 7.3, RBC 4.07 L, Hgb 12.5, Hct 37.0, MCV 90.9, MCH 30.7, MCHC 33.8, RDW 16.3, Plt Count 348, MPV 9.5, Neut % (Auto) 43.7, Lymph % (Auto) 49.7, [place] % (Auto) 5.3, Eos % (Auto) 0.5, Baso % (Auto) 0.5, Neut # (Auto) 3.2, Lymph # (Auto) 3.6, [place] # (Auto) 0.4, Eos # (Auto) 0.0, Baso # (Auto) 0.0, Sodium 138, Potassium 3.6, Chloride 102, Carbon Dioxide 27, Anion Gap 12.6, BUN 9, Creatinine 0.60, Estimated Creat Clear 105, Estimated GFR 105, Est GFR ( Amer) 127, Glucose 115 H, Calcium 9.8, Total Bilirubin 0.9, AST 98 H, ALT 37, Alkaline Phosphatase 139 H, Troponin I < 0.01, Total Protein 8.9 H, Albumin 5.0, Globulin 3.9 H, Albumin/Globulin Ratio 1.3, Plasma/Serum Alcohol < 10, HCV Ab DAISY w/Rflx PCR Qn Negative, HIV Ag/Ab Combo Qual Negative 03/09/25 20:41: Urine Color Yellow, Urine Appearance Clear, Urine pH 6.5, Ur Specific [place] <= 1.005, Urine Protein Negative, Urine Glucose (UA) Negative, Urine Ketones Negative, Urine Blood Negative, Urine Nitrate Negative, Urine Bilirubin Negative, Urine Urobilinogen 0.2, Ur Leukocyte Esterase Negative, Urine RBC None, Urine WBC 5-10, Ur Squamous Epith Cells 3-5, Urine Bacteria 4+, Urine Opiates Screen Negative, Urine Methadone Screen Negative, Ur Barbituates Screen Negative, Ur Phencyclidine Scrn Negative, Ur Amphetamines Screen Negative, U Benzodiazepines Scrn Negative, Urine Cocaine Screen Negative, U Marijuana (THC) Screen Negative 03/09/25 23:24: Troponin I < 0.01 Orders (Tests/Meds): ED MEDICATIONS Discontinued Medications Generic Name Dose Route Start Last Admin Trade Name Jody PRN Reason Stop Dose Admin Acetaminophen 1,000 mg 03/09/25 23:07 03/09/25 23:19 Acetaminophen 500mg Tab PO 03/09/25 23:08 1,000 mg ONCE ONE Administration Hydrocodone Bitart/Acetaminophen 1 tab 03/09/25 21:26 03/09/25 21:32 Apap/Hydrocodone 325mg/7.5mg Tab PO 03/09/25 21:27 1 tab ONCE ONE Administration Belladonna Alkaloids 60 ml 03/09/25 23:07 03/09/25 23:19 Belladonna Alkaloids 60 Ml Ml PO 03/09/25 23:08 60 ml ONCE ONE Administration Clonazepam 0.5 mg 03/09/25 21:07 03/09/25 21:12 Clonazepam 0.5mg Tablet PO 03/09/25 21:08 0.5 mg ONCE ONE Administration Diphenhydramine HCl 50 mg 03/10/25 00:01 03/10/25 00:05 Diphenhydramine 50mg/Ml Vial IV 03/10/25 00:02 50 mg ONCE ONE Administration Ondansetron HCl 4 mg 03/09/25 22:13 03/09/25 22:17 Ondansetron 4mg/2ml Vial IV 03/09/25 22:14 4 mg ONCE ONE Administration Ondansetron HCl 4 mg 03/10/25 00:04 03/10/25 00:05 Ondansetron 4mg/2ml Vial IV 03/10/25 00:05 4 mg ONCE ONE Administration ORDERS Category Date Time Status CXR --portable [XR chest portable] Stat Exams 03/09/25 20:28 Completed CBC w/Auto Diff [Complete Blood Count Auto Diff] Stat Lab 03/09/25 20:07 Completed CMP [Comprehensive Metabolic Panel] Stat Lab 03/09/25 20:07 Completed Ethyl Alcohol Stat Lab 03/09/25 20:07 Completed HIV Combo Stat Lab 03/09/25 20:07 Completed Hepatitis C Ab Qual. W/ RFX Stat Lab 03/09/25 20:07 Completed Trop I [Troponin I] Stat Lab 03/09/25 20:07 Completed Troponin I Q3H Lab 03/09/25 23:24 Completed Troponin I Q3H Lab 03/10/25 02:30 Ordered UDS [Drug Screen,Urine] Stat Lab 03/09/25 20:41 Completed Urinalysis and Microscopic Stat Lab 03/09/25 20:41 Completed Urine Culture Stat Micro 03/09/25 20:41 Received HEART Score HEART Score: 2 Medical Decision Narrative: In summary, patient is a 54-year-old female PMHx colon cancer (chemo and radiation), COPD, alcohol use disorder, anxiety who presents to the ED for complaints of chest pain via EMS. Patient states that he has centrally located chest pain that started earlier today. EMS administered 2 nitro and 1 aspirin and route. Patient states her chest pain is still a 6 out of 10. She states it feels like a sharp stabbing pain. Patient reports that she has not had her anxiety medication today. Denies any falls or trauma. She states that she missed her last chemo dose, has not had chemo in 1 month. Denies fever, chills, body aches, headache, visual disturbances, abdominal pain, nausea, vomiting, dysuria. Upon initial evaluation patient is alert, oriented and cooperative. She is tachycardic, very anxious. Physical exam is unremarkable, abdomen is soft and nontender, chest wall is nontender. Differential diagnoses include ACS, pulmonary embolism, COPD exacerbation, infectious process, anxiety, among others. Discussed with patient will proceed with labs, EKG and chest x-ray. CBC unremarkable for leukocytosis, stable H&H. CMP unremarkable for any actionable abnormalities. First troponin < 0.01. Urinalysis unremarkable. Serum alcohol < 10. Patient requesting her evening medications, clonazepam and hydrocodone. Confirm these on patient's medication list and administer those. Care transferred to attending. Raj Tabares MD I was consulted by the PITA, and we discussed the complexity of the problems being addressed. I approve the treatment and management plan for this patient's care in the emergency department, thus performing a substantive portion of the medical decision making. Patient did complain of some nausea and was given 4 mg of IV Zofran. Her workup thus far has been unremarkable with initial troponin less than 0.01. EKG without evidence of ischemia. Patient has tolerated oral intake here in the emergency department but is now complaining of worsening chest pain. Will administer 1 g of Tylenol as well as GI cocktail. Patient's repeat troponin is pending. It 2315, patient's care was transferred to the oncoming physician, Dr. Parra, pending repeat troponin. Parra: Upon my assumption of care patient is stable, resting comfortably. She has received GI cocktail. Repeat troponin is pending. I agree with the assessment and plan from Dr. Tabares. With the patient's pain coming back after ingestion of food and drink this does increase suspicion for GI etiology so likely the GI cocktail will help. Her symptoms had improved, but an hour after receiving the GI cocktail she began to complain that I did not know there was lidocaine and that and I am allergic to lidocaine . She then started to cough and stated she felt like it was hard to breathe. She was saturating 100% on room air, no stridor, no angioedema, no wheezing, lungs clear bilaterally, no vomiting, no evidence of shock. She does not have multisystem organ involvement, no anaphylaxis, no angioedema, no shock. Patient's previously documented reaction to lidocaine was rash of which she has none at this time, but Benadryl is being administered. I do not believe she requires epinephrine at this time. She states her chest pain continues to come and go and that she is scared to go home as a result. She had previously stated that even if she was discharged she would likely come back later tonight anyway. Her second troponin is also undetectably low which which is very reassuring against ischemic etiology, but since she cannot stay asymptomatic and is now reporting symptoms of allergic reaction though she is not having severe life-threatening reaction I believe the best plan of action for this patient is to be admitted to the hospital. She is comfortable with this plan. I discussed this case with Dr. Ervin, the hospitalist, who graciously accepted the patient for admission. Patient admitted in stable condition. Critical Care <Kareen Wyman APRN - Last Filed: 03/09/25 21:30> Critical Care Time Critical Care Time: No
--- NOTE | 2025-03-09 20:28 | XR_ITS ---
PROCEDURE INFORMATION: Exam: XR Chest Exam date and time: 03/09/2025 8:36 PM Age: 54 years old Clinical indication: Other: Chest pain; Additional info: Cp TECHNIQUE: Imaging protocol: Radiologic exam of the chest. Views: 1 view. Total images: 1 COMPARISON: CR XR CHEST 2V 01/28/2025 3:47 PM FINDINGS: Tubes, catheters and devices: EKG leads are present. Lungs: Unremarkable. No consolidation. No pulmonary vascular congestion or edema. Pleural spaces: Unremarkable. No pleural effusion. No pneumothorax. Heart/Mediastinum: Unremarkable. No cardiomegaly. No mediastinal widening or hilar enlargement. Bones/joints: Status post anterior cervical fusion. IMPRESSION: No radiographically acute cardiopulmonary process
[2025-03-09 20:35] LABS: Hematocrit 37.0 % (37.0-47.0); Hemoglobin 12.5 g/dL (12.2-16.2); Immature Granulocytes % 0.3 %; Mean Corpuscular HGB Conc 33.8 g/dL (31.8-35.4); Mean Corpuscular Hemoglobin 30.7 pg (27.0-31.2); Mean Corpuscular Volume 90.9 fl (81-99); Nucleated Red Blood Cells % 0 %; Platelet Count 348 K/mm3 (142-424); Red Blood Count 4.07 M/mm3 (4.20-5.40); Red Cell Distribution Width-SD 53.9 fL; White Blood Count 7.3 K/mm3 (4.8-10.8)
--- OUTSIDE RECORDS SUMMARY | 2025-03-09 20:35 | XMS_ITS | Encounter Summary ---
Author Organization Healthcare Address [address] [place] [address] Care Team Providers Care Net Making Supervisor Name Role Phone Perry Hicks MD Primary Care Provider + [phone] Renard Garcia MD Unavailable [phone] Yohana Aragon DO Unavailable [phone] Yvette Velarde NEON SIGN MAKER Unavailable [phone] Pcp, No Primary Care Provider Unavailabl e Carolina Aquino ASSISTANT WINEMAKER Unavailable Unavailable Pcp, No Primary Care Provider Unavailabl e Encounter Details Date Type Department Care Team (Late st Contact Info) Description 11/01/2022 Lab Requisition [facility] [address] [place] [address] Santiago England MD [address] [facility] [address] [place] [address] Atypical squamous cells of undetermined significance on [...] EDT) Case Report Sugical Pathology Consult Case: [id number] Authorizing Provider: Santiago England MD Collected: 11/01/2022 1243 Ordering Location: [facility] Received: 11/01/2022 1243 Pathologist: Namrata Travis MD Specimen: Vaginal, [id number] 11/04/2022 9:18 AM EDT [facility] Final Diagnosis A. VAGINAL CUFF, 3:00 AND 9:00, BIOPSIES (OUTSIDE SLIDES [id number], 10/06/22): - FRAGMENTS OF PREDOMINANTLY CERVICAL STROMA WITH MINUTE FRAGMENTS OF CAUTERIZED SQUAMOUS EPITHELIUM - NO EVIDENCE OF HIGH GRADE DYSPLASIA OR CARCINOMA 11/04/2022 9:18 AM EDT [facility] at 0918 EDT Comment There is minimal intact epithelium available for review. Therefore these findings may not be billing representative of the mucosal process. Clinical correlation, with potential rebiopsy, is suggested. 11/04/2022 9:18 AM EDT [facility] Clinical Information R87.610 - Atypical squamous cells of undetermined significance on cytologic smear of cervix (ASC-US) [ICD-10-CM] 11/04/2022 9:18 AM EDT [facility] Gross Description A. [id number] Received along with a corresponding pathology report from [facility] are 2 slide(s) labeled outside case: [id number] collected on 10/06/2022. 11/04/2022 9:18 AM EDT [facility] Note: A resident was involved in the service. I attest I examined the relevant preparations for the specimens and confirmed the diagnosis or interpretation. 11/04/2022 9:18 AM EDT [facility] Tissue Vaginal structure / Unknown 11/01/2022 12:43 PM EDT 11/01/2022 12:43 PM EDT us Santiago England MD LAB PATHOLOGY ORDERABLES Final Result [facility] [address] [place] [address] documented in this encounter Visit Diagnoses Diagnosis [...] documented as of this encounter Care Teams Net Making Supervisor Relationship Specialty Start Date End Date Perry Hicks MD [address] [place] [address] PCP - General 12/05/20 11/09/23 Pcp, No [address] [place] [address] PCP - General Family Medicine 11/10/23 01/28/25 Pcp, No [address] [place] [address] PCP - General Family Medicine 01/29/25 Renard Garcia MD [address] [facility] [place] [address] Surgeon Neurosurgery 11/25/21 Yohana Aragon DO [address] [place] [address] Obstetrics and Gynecology 10/22/22 Yvette Velarde APRN [address] [place] [address] Nurse Practitioner Neurosurgery 11/10/23 Carolina Aquino LPN [employer] [address] TCM Nurse 09/13/24 10/12/24 documented as of this encounter
--- OUTSIDE RECORDS SUMMARY | 2025-03-09 20:35 | XMS_ITS | Encounter Summary ---
Author Organization Healthcare Address [address] [place] [address] Care Team Providers Care Pta Name Role Phone Renard Garcia MD Unavailable [phone] Yohana Aragon DO Unavailable [phone] Yvette Velarde PLASTERER SPOT Unavailable [phone] Pcp, No Primary Care Provider Unavailabl e Encounter Details Date Type Department Care Team (Latest Contact Info) Description 01/29/2025 Travel Social History Tobacco Use Types Packs/Day Years [...] on file documented as of this encounter Functional Status * Calculated C-SSRS [...] Lise Miranda documented as of this encounter Plan of Treatment Not on file documented as of this encounter Visit Diagnoses Not on filedocumented in this encounter Additional Health Concerns Assessment Noted Time A fall risk assessment has been complete d for the patient 11/10/2023 10:06 AM EDT A Body Mass Index follow-up plan has been documented for the patient 09/12/2024 3:08 PM EST documented as of this encounter Care Teams Pta Relationship Specialty Start Date End Date Pcp, [place] [address] PCP - General Family Medicine 01/29/25 Renard Garcia MD [address] [facility] [address] [place] [address] Surgeon Neurosurgery 11/25/21 Yohana Aragon DO [address] [place] [address] Obstetrics and Gynecology 10/22/22 Yvette Velarde APRN [address] [facility] [address] [place] [address] Nurse Practitioner Neurosurgery 11/10/23 documented as of this encounter
--- OUTSIDE RECORDS SUMMARY | 2025-03-09 20:35 | XMS_ITS | Encounter Summary ---
Author Organization Healthcare Address [address] [place] [address] Care Team Providers Care Executive Services Administrator Name Role Phone Perry Hicks MD Primary Care Provider + [phone] Renard Garcia MD Unavailable [phone] Yohana Aragon DO Unavailable [phone] Yvette Velarde COMMUNICATIONS MARKETING INTERN Unavailable [phone] Pcp, No Primary Care Provider Unavailabl e Carolina Aquino FULL STACK JAVA DEVELOPER Unavailable Unavailable Pcp, No Primary Care Provider Unavailabl e Encounter Details Date Type Department Care Team (Late st Contact Info) Description 11/01/2022 Lab Requisition [facility] Lab [address] [place] [address] Santiago England MD 800 [facility] [address] [place] [address] Atypical squamous cells of undetermined significance on [...] 11:21 AM EDT) Case Report Cytology Case: [id number] Authorizing Provider: Santiago England MD Collected: 11/01/20221120 Ordering Location: [facility] Lab Received: 11/01/2022 112 Pathologist: Alayna Vaca MD Specimen: Vaginal, [id number] 11/02/2022 11:55 AM EDT [facility] Final Diagnosis A. VAGINAL PAP SMEAR (OUTSIDE CASE [id number], COLLECTED 08/25/2022) - LOW GRADE SQUAMOUS INTRAEPITHELIAL LESION (LSIL), SEE COMMENT. 11/02/2022 11:55 AM EDT [facility] at 1155 EDT Comment Refer to surgical case [id number] for subsequent biopsy results. 11/02/2022 11:55 AM EDT [facility] Clinical Information R87.610 - Atypical squamous cells of undetermined significance on cytologic smear of cervix (ASC-US) [ICD-10-CM] 11/02/2022 11:55 AM EDT [facility] Gross Description A. [id number] For clinical data and diagnosis (LSIL) for this specimen ([id number]) see final report issued by [facility] Pathology Department. 11/02/2022 11:55 AM EDT [facility] Vaginal structure / Unknown 11/01/2022 11:21 AM EDT 11/01/2022 11:22 AM EDT us Santiago England MD LAB PATHOLOGY ORDERABLES Final Result [facility] [address] [place] [address] documented in this encounter Visit Diagnoses Diagnosis [...] documented as of this encounter Care Teams Executive Services Administrator Relationship Specialty Start Date End Date Perry Hicks MD [address] [place] [address] PCP - General 12/05/20 11/09/23 Pcp, No [address] [place] [address] PCP - General Family Medicine 11/10/23 01/28/25 Pcp, No [address] [place] [address] PCP - General Family Medicine 01/29/25 Renard Garcia MD [address] [place] [address] Surgeon Neurosurgery 11/25/21 Yohana Aragon DO [address] [place] [address] Obstetrics and Gynecology 10/22/22 Yvette Velarde APRN [address] [place] [address] Nurse Practitioner Neurosurgery 11/10/23 Carolina Aquino LPN VALUE[employer]ED [place] [address] TCM Nurse 09/13/24 10/12/24 documented as of this encounter
--- OUTSIDE RECORDS SUMMARY | 2025-03-09 20:35 | XMS_ITS | Encounter Summary ---
Author Organization [facility] Address [address] [place] [address] Care Team Providers Care Fish Inspector Name Role Phone Xavier Esposito MD Primary Care Provider + Reason for Visit * Reason Onset Date Comments Advice Only 02/28/2025 Encounter Details Date Type Department Care Team (Late st Contact Info) Description 02/28/2025 Telephone [facility] [address] [place] [address] Xavier Esposito MD [address] [place] [address] Advice Only Social History Tobacco Use Types Packs/Day Years [...] on file documented as of this encounter Miscellaneous Notes * Telephone Encounter - Blanca Delgado MA - 02/28/2025 3:57 PM EDT Pt agreed to go to the ED if she could a ride that was not by EMS. Stated that she would go by EMS if it was last resort. Stated that she will keep us updated. * Telephone Encounter - Blanca Delgado MA - 02/28/2025 3:47 PM EDT Spoke with pt, told her the per we advise her to go to the ED. She strongly stated that she was not going to [facility] and didn't have a way to get to another hospital. Told pt to either call EMS, or ask someone else to take her. Pt stated that she will ask someone else and let us know. * Telephone Encounter - Xavier Esposito MD - 02/28/2025 3:35 PM EDT The concern based on her described symptoms is a possible stroke. I would recommend she go to the emergency room. * Telephone Encounter - Kamille Rueda RegSched Rep - 02/28/2025 3:08 PM EDT PATIENT STATES SHE HAS NUMBNESS/TINGLING IN LEFT HAND THAT GOES UP TO ARM AND A COLD FEELING GOING UP HER ARM. SHE STATED SHE DIDN'T WANT TO GO TO THE HOSPITAL AT [facility], I OFFERED A APPOINTMENT WITH [facility] BUT SHE WOULD LIKE TO TALK WITH SOMEONE TO SEE WHAT THEY ADVISE HER TO DO. documented in this encounter Plan of Treatment Upcoming Encounters Date Type Department Care Team (Late st Contact Info) Description 04/08/2025 11:45 AM EDT Office Visit [facility] [address] [place] [address] Xavier Esposito MD [address] [place] [address] documented as of this encounter Visit Diagnoses Not on filedocumented in this encounter Care Teams Fish Inspector Relationship Specialty Start Date End Date Xavier Esposito MD [address] [place] [address] PCP - General Family Medicine 09/24/24 documented as of this encounter
--- OUTSIDE RECORDS SUMMARY | 2025-03-09 20:35 | XMS_ITS | Encounter Summary ---
Author Organization [facility] Address [address] [place] [address] Care Team Providers Care Dye Weigher Name Role Phone Xavier Esposito MD Primary Care Provider + Reason for Visit * Reason Onset Date Comments New Med Request 02/26/2025 Encounter Details Date Type Department Care Team (Late st Contact Info) Description 02/26/2025 Telephone [facility] [address] [place] [address] Xavier Esposito MD [address] [place] [address] New Med Request Social History Tobacco Use Types Packs/Day Years [...] encounter Miscellaneous Notes * Telephone Encounter - Maribel Solano MA - 02/26/2025 3:17 PM EDT Duplicate msg. * Telephone Encounter - Rosalba Lux RegSched Rep - 02/26/2025 2:40 PM EDT Caller: Tonya Kamara Relationship: Self Best call back number: Telephone Information: What medication are you requesting: PAIN MEDICATION What are your current symptoms: CHRONIC PAIN If a prescription is needed, what is your preferred pharmacy and phone number: [facility] - [place] - [address] [address] [address] - [phone] PH - [phone] FX [phone] Additional notes: PATIENT HAD BEEN SEEING PAIN MANAGEMENT TO HELP WITH CHRONIC PAIN, BUT MISSED AN APPOINTMENT DUE TO THE OF A FRIEND AND THEY WILL NOT RESCHEDULE THE APPOINTMENT. PATIENT HAS REQUESTED A NEW REFERRAL, BUT IS WANTING TO KNOW IF SOME PAIN MEDICATION CAN BE CALLED IN TO HELP HERGET TO HER NEW PAIN MANAGEMENT APPOINTMENT WHEN IT IS SCHEDULED. PLEASE CALL TO DISCUSS IF NEEDED. documented in this encounter Plan of Treatment Upcoming Encounters Date Type Department Care Team (Late st Contact Info) Description 04/08/2025 11:45 AM EDT Office Visit [facility] [address] [place] [address] Xavier Esposito MD [address] [place] [address] documented as of this encounter Visit Diagnoses Not on filedocumented in this encounter Care Teams Dye Weigher Relationship Specialty Start Date End Date Xavier Esposito MD [address] [place] [address] PCP - General Family Medicine 09/24/24 documented as of this encounter
--- OUTSIDE RECORDS SUMMARY | 2025-03-09 20:35 | XMS_ITS | Encounter Summary ---
Author Organization [facility] Address [address] [place] [address] Care Team Providers Care Hide Salter Name Role Phone aXvier Esposito MD Primary Care Provider + Reason for Visit * Reason Onset Date Comments Med Refill 03/05/2025 Encounter Details Date Type Department Care Team (Late st Contact Info) Description 03/05/2025 Refill [facility] [address] [place] [address] Xavier Esposito MD [address] [place] [address] Social History Tobacco Use Types Packs/Day Years [...] encounter Miscellaneous Notes * Telephone Encounter - Natalya Morgan RegSched Rep - 03/05/2025 3:52 PM EDT Caller: Tonya Kamara Relationship: Self Best call back number: [phone] Requested Prescriptions: Requested Prescriptions Pending Prescriptions Disp Refills promethazine (PHENERGAN) 25 MG tablet HYDROCODONE Pharmacy where request should be sent: [facility] [place] [address] [address] [address] - [phone] - [phone] FX Last office visit with prescribing clinician: 02/05/2025 Last telemedicine visit with prescribing clinician: Visit date not found Next office visit with prescribing clinician: 04/08/2025 Additional details provided by patient: THE PATIENT STATES THAT SHE IS OUT OF THE MEDICATION AND NEEDS THEM REFILLED SHE STATES THAT SHE HAS BEEN OUT FOR ALMOST A MONTH PLEASE CALL PATIENT TO LET [facility] IF THAT CAN BE REFILLED Does the patient have less than a 3 day supply: [x] Yes [] No Would you like a call back once the refill request has been completed: [x] Yes [] No If the office needs to give you a call back, can they leave a voicemail: [x] Yes [] No Kamron Bermudez 03/05/25 15:53 EDT documented in this encounter Plan of Treatment Upcoming Encounters Date Type Department Care Team (Late st Contact Info) Description 04/08/2025 11:45 AM EDT Office Visit [facility] [address] [place] [phone] Xavier Esposito MD [address] [place] [place] [address] documented as of this encounter Visit Diagnoses Not on filedocumented in this encounter Care Teams Hide Salter Relationship Specialty Start Date End Date Xavier Esposito MD [address] [place] [address] PCP - General Family Medicine 09/24/24 documented as of this encounter
--- OUTSIDE RECORDS SUMMARY | 2025-03-09 20:35 | XMS_ITS | Encounter Summary ---
Author Organization [facility] Address [address] [place] [address] Care Team Providers Care [employer] Rep Name Role Phone Xavier Esposito MD Primary Care Provider + Encounter Details Date Type Department Care Team (Latest Contact Info) Description 02/05/2025 Travel Social History Tobacco Use Types Packs/Day [...] documented as of this encounter Functional Status documented as of this encounter Plan of Treatment Upcoming Encounters Date Type Department Care Team (Late st Contact Info) Description 04/08/2025 11:45 AM EDT Office Visit [facility] [address] [place] [address] Xavier Esposito MD [address] [place] [address] documented as of this encounter Visit Diagnoses Not on filedocumented in this encounter Care Teams [employer] Rep Relationship Specialty Start Date End Date Xavier Esposito MD [address] [place] [address] PCP - General Family Medicine 09/24/24 documented as of this encounter
--- OUTSIDE RECORDS SUMMARY | 2025-03-09 20:35 | XMS_ITS | Clinical Summary ---
Author Organization [facility] Address [address] [place] [address] Care Team Providers Care Plastic Shaper Name Role Phone Xavier Esposito MD Primary Care Provider + Allergies Active Allergy Reactions Criticality Noted Date Comments Aspirin Hives,Itching,Swelling High 09/07/2024 Azithromycin Unknown (See Comments) Low 07/10/2019 Codeine Hives,Itching,Swelling High 07/10/2019 Erythromycin Hives,Itching,Swelling High 11/28/2021 Ibuprofen Hives,Itching,Swelling High 06/20/2024 Iodinated Contrast Media Anaphylaxis High 09/20/2024 Latex Rash Low 11/26/2021 Penicillins Unknown (See Comments) Low 07/10/2019 Tramadol Hives,Itching,Swelling High 06/20/2024 Medications fluticasone (FLONASE) 50 MCG/ACT nasal spray 3 Active hydrocortisone 1 % cream 4 Active levothyroxine (SYNTHROID, LEVOTHROID) 25 MCG tablet Take 1 tablet by mouth Daily. 3 Active loperamide (IMODIUM) 2 MG capsule 3 Active benzonatate (Tessalon Perles) 100 MG capsule Take 1 capsule by mouth 3 (Three) Times a Day As Needed for Cough. 30 capsule 5 Active albuterol (PROVENTIL) (2.5 MG/3ML) 0.083% nebulizer solution Take 2.5 mg by nebulization . 5 Active clonazePAM (KlonoPIN) 0.5 MG tablet Take 1 tablet by mouth Daily. Active omeprazole (priLOSEC) 40 MG capsuleIndicatio ns:Gastroesophag eal reflux disease without esophagitis Take 1 capsule by mouth Daily. 30 capsule 1 5 Active Umeclidinium-Brandon anterol (Anoro Ellipta) 62.5-25 MCG/ACT aerosol powder inhalerIndicatio ns:Chronic obstructive pulmonary disease, unspecified COPD type Inhale 1 puff Daily. 60 each 5 5 Active promethazine (PHENERGAN) 25 MG tablet Take 1 tablet by mouth Every 6 (Six) Hours As Needed for Nausea or Vomiting. 30 tablet 5 Active promethazine (PHENERGAN) 25 MG tablet 3 03/05/20 25 Discontinu ed(Reorder ) Umeclidinium-Brandon anterol (Anoro Ellipta) 62.5-25 MCG/ACT aerosol powder inhalerIndicatio ns:Chronic obstructive pulmonary disease, unspecified COPD type Inhale 1 puff Daily. 60 each 5 5 02/27/20 25 Discontinu ed(Reorder ) Active Problems Problem Noted Date Diagnosed Date Poor historian 09/24/2024 Abnormal electrocardiography 09/08/2023 Anxiety 09/08/2023 Atopic dermatitis 09/08/2023 Cervical strain 09/08/2023 CTS (carpal tunnel syndrome) 09/08/2023 Fatty liver 09/08/2023 GERD (gastroesophageal reflux disease) 4 Assessment & Plan (09/08/2023 6:11 PM EST): Reports history of hiatal hernia, data deficient, currently maintaining symptom control on omeprazole [address] Dr. Delaney of GI for concomitant abdominal pain and chronic diarrhea. Lumbar disc disease with radiculopathy 4 Assessment & Plan (09/08/2023 6:17 PM EST): Recent CT of the L-spine in ER visit at [facility] revealing mild to moderate degenerative changes with mild L4 and L5 retrolisthesis which is stable, no acute abnormality. Referring to pain management for further evaluation, noting up until recently had been prescribed Carter 10 mg 4 times daily and gabapentin 800 mg 3 times daily by previous PCP provider. I advised patient that I am not comfortable prescribing this as a long-term treatment plan. Strain of thoracic spine 09/08/2023 Neuropathy 09/08/2023 Psoriasis 09/08/2023 Raynaud phenomenon 09/08/2023 Assessment & Plan (09/08/2023 6:10 PM EST): Patient reports color changes in both hands whenever they get cold. Advised to keep hands warm. Rotator cuff tear 09/08/2023 Stress incontinence 09/08/2023 Assessment & Plan (09/08/2023 6:13 PM EST): Follow-up with Dr. Eugene of urology. Tobacco use 09/08/2023 Cervical radiculopathy 09/08/2023 Assessment & Plan (09/08/2023 6:17 PM EST): Referring to pain management. Recent C-spine x-rays with no acute abnormality, noting prior fusion of C6-7 with a disc osteophyte complex at C5-6. Pain management referral pending. Chronic neck and back pain 09/08/2023 Assessment & Plan (09/08/2023 6:15 PM EST): Chronic neck and back pain, degenerative arthritis noted on imaging, having had T-spine and L-spine CT per recent ER visit, with C-spine x-rays, all of which revealed no acute fracture with chronic degenerative changes. Will refer to pain management for further evaluation, and noting has been maintained up to this point on hydrocodone 10 mg 4 times daily and gabapentin 800 mg 3 times daily. I advised patient that I am not comfortable with ongoing prescription of these medications thus will defer to pain management. Chronic pain in left shoulder 09/08/2023 Assessment & Plan (09/08/2023 6:16 PM EST): Exam consistent with a rotator cuff tendinopathy, recent plain film x-rays in the ER with no acute abnormality noted. Advised to follow-up with Dr. Hopkins of orthopedic surgery, patient reportedly previously established as a patient. Fibromyalgia 09/08/2023 Chronic bilateral lower abdominal pain Assessment & Plan (09/08/2023 6:11 PM EST): Patient complains of chronic diarrhea, reported history of colon cancer, data deficient, status post recent colonoscopy by history with Dr. Oswaldo Carrasquillo of general surgery in [place], patient indicating had 2 polyps left in situ with plan to repeat another colonoscopy. Obtain records. Referring to Dr. Delaney of GI for additional evaluation. Chronic diarrhea 09/08/2023 Assessment & Plan (09/08/2023 6:12 PM EST): Etiology uncertain, reported history of colon cancer with details unknown, with subsequent treatment potentially contributing to her diarrhea, having undergone colonoscopy by history recently with Dr. MACIEL which reportedly revealed polyps left in situ with plan for repeat colonoscopy. Taking Imodium. Previously having been seen by Dr. Mcgovern of GI who no longer practices locally. Will refer to Dr. Delaney of GI for second opinion regarding symptoms. Generalized anxiety disorder 09/08/2023 Assessment & Plan (09/08/2023 6:14 PM EST): Patient with chronic generalized anxiety disorder, most recently having been managed on Klonopin 0.5 mg 4 times daily with last prescription given on 07/01/2023. I advised patient that I am not comfortable prescribing chronic benzodiazepine use in this patient, patient indicating she has had lack of response or side effects to previously prescribed BuSpar and Paxil. Will initiate a trial of conservative dose of Cymbalta 30 mg daily given previous SSRI intolerances, this for concomitant treatment of anxiety and generalized pain, and reassess clinically at follow-up visit in 1 month. Treat acute symptoms with hydroxyzine 25 mg 3 times daily as needed. Smokeless tobacco use 09/08/2023 Assessment & Plan (09/08/2023 6:18 PM EST): Longstanding smokeless tobacco user with no history of cigarette smoking. Advised to discontinue given health risks. History of colon cancer 09/08/2023 Assessment & Plan (09/08/2023 6:19 PM EST): Data deficient. Obtaining records from Dr. Carrasquillo of general surgery. Referring to Dr. Delaney of GI. Dyslipidemia 09/06/2023 Assessment & Plan (09/08/2023 6:09 PM EST): Reported history of dyslipidemia apparently on no statin or related medication. Will plan updating lab testing next visit. Acquired hypothyroidism 09/06/2023 Assessment & Plan (09/08/2023 6:10 PM EST): Reportedly taking levothyroxine 25 mcg daily. Plan update thyroid function testing at next visit. Vitamin D deficiency 09/06/2023 Seasonal allergic rhinitis due to pollen 024 Substance use disorder 09/06/2023 Colon cancer 09/06/2023 COPD (chronic obstructive pulmonary disease) History of ovarian cancer 09/06/2023 Assessment & Plan (09/08/2023 6:18 PM EST): Obtain records from [facility]. Keep [facility] follow-up. 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 Vaginal Pap smear with LGSIL 08/25/2022 Resolved Problems Problem Noted Date Diagnosed Date Resolved Date Chronic back pain 10/22/2022 09/08/2023 Cervical myelopathy 11/25/2021 09/08/19 24 Overview (09/06/2023): Added automatically from request for surgery [id number] Encounters Date Type Department Care Team Description 03/05/2025 Refill [facility] [address] [address] Xavier Esposito MD 02/28/2025 Telephone [facility] [address] [address] Xavier Esposito MD Advice Only 02/26/2025 Telephone [facility] [address] [phone] Xavier Esposito MD New Med Request 02/26/2025 Telephone [facility] [address] [place] [address] Xavier Esposito MD REFERRAL REQUEST 02/26/2025 Refill [facility] [address] [place] [address] Xavier Esposito MD Chronic obstructive pulmonary disease, unspecified COPD type 02/05/2025 11:00 AM EDT Office Visit [facility] [address] [place] [address] Xavier Esposito MD Lung disease (Primary Dx); Dyspnea on exertion; Non-smoker; Gastroesophageal reflux disease without esophagitis; Esophageal dysmotility; Anxiety about health; Polyp of colon, unspecified part of colon, unspecified type; Injury of right rotator cuff, subsequent encounter; Generalized anxiety disorder; Chronic neck and back pain 02/05/2025 Travel from Last 3 Months Immunizations Immunization Administration Dates Next Due Hep A / Hep B 07/11/2018 Family History Medical History Relation Name Comments Cancer Mother Diabetes Mother Heart disease Mother Relation Name Status Comments Mother Social History Tobacco Use Types Packs/Day Years Used Date Smoking Tobacco: Never Smokeless Tobacco: Current Snuff Tobacco Cessation:Ready to Q uit: No; Counseling Given: No Alcohol Use Standard Drinks/Week Comments Yes 1 [...] Mass Index 24.61 02/05/2025 11:18 AM EDT Plan of Treatment Upcoming Encounters Date Type Department Care Team (Late st Contact Info) Description 04/08/2025 11:45 AM EDT Office Visit [facility] [address] [place] [address] Xavier Esposito MD [address] [place] [address] Health Maintenance Due Date Last Done Comments Annual Gynecologic Pelvic and Breast Exam 1970 Pneumococcal Vaccine 50+ (1 of 2 - PCV) 11/15/1990 TDAP/TD VACCINES (1 - Tdap) 11/15/1990 ZOSTER VACCINE (1 of 2) 11/15/2021 ANNUAL PHYSICAL 09/01/2023 COVID-19 Vaccine (2 - 2023- season) 2024 INFLUENZA VACCINE 04/24/2025 MAMMOGRAM 05/25/2025 05/25/2023, 02/25/2023 HEPATITIS C SCREENING Completed 09/07/2024, 024 Procedures Procedure Name Priority Date/Time Associated Diagnosis Comments SCANNED - MAMMO 02/25/2023 from Last 3 Months or Most Recently Relevant to Health Maintenance Results * MAMMO Scan (02/25/2023) Anatomical Region Laterality Modality Other Peggy Khoury [facility] CHART REVIEW TABS Final Result from Last 3 Months or Most Recently Relevant to Health Maintenance Insurance [facility] MEDICAID Care Teams Plastic Shaper Relationship Specialty Start Date End Date Xavier Esposito MD [address] [place] [address] PCP - General Family Medicine 09/24/24
--- OUTSIDE RECORDS SUMMARY | 2025-03-09 20:35 | XMS_ITS | Encounter Summary ---
Author Organization [facility] Address [address] [place] [id number] Care Team Providers Care Safety Patrol Officer Name Role Phone Xavier Esposito MD Primary Care Provider + Reason for Visit * Reason Onset Date Comments Med Refill 02/26/2025 Encounter Details Date Type Department Care Team (Late st Contact Info) Description 02/26/2025 Refill [facility] [address] [place] [address] Xavier Esposito MD [address] [place] [address] Chronic obstructive pulmonary disease, unspecified COPD type Social History Tobacco Use Types Packs/Day Years [...] encounter Miscellaneous Notes * Telephone Encounter - Rosalba Lux RegSchhaile Rep - 02/26/2025 2:36 PM EDT Caller: Tonya Kamara Relationship: Self Best call back number: Telephone Information: Requested Prescriptions: Requested Prescriptions Pending Prescriptions Disp Refills Umeclidinium-Vilanterol (Anoro Ellipta) 62.5-25 MCG/ACT aerosol powder inhaler 60 each 5 Sig: Inhale 1 puff Daily. Pharmacy where request should be sent: [facility] [place] - [address] [address] [address] - [phone] - [phone] FX Last office visit with prescribing clinician: 02/05/2025 Last telemedicine visit with prescribing clinician: Visit date not found Next office visit with prescribing clinician: 04/08/2025 Does the patient have less than a 3 day supply: [x] Yes [] No Kamron French Rep 02/26/25 14:37 EDT documented in this encounter Plan of Treatment Upcoming Encounters Date Type Department Care Team (Late st Contact Info) Description 04/08/2025 11:45 AM EDT Office Visit [facility] [address] [place] [address] Xavier Esposito MD [address] [place] [address] documented as of this encounter Visit Diagnoses Diagnosis Chronic obstructive pulmonary disease, unspecified COPD type documented in this encounter Care Teams Safety Patrol Officer Relationship Specialty Start Date End Date Xavier Esposito MD [address] [place] [address] PCP - General Family Medicine 09/24/24 documented as of this encounter
--- OUTSIDE RECORDS SUMMARY | 2025-03-09 20:35 | XMS_ITS | Encounter Summary ---
Author Organization [facility] Address [address] [place] [address] Care Team Providers Care Glucose And Syrup Weigher Name Role Phone Xavier Esposito MD Primary Care Provider + Reason for Visit * Reason Onset Date Comments REFERRAL REQUEST 02/26/2025 Encounter Details Date Type Department Care Team (Late st Contact Info) Description 02/26/2025 Telephone [facility] [address] [place] [address] Xavier Esposito MD [address] [place] [address] REFERRAL REQUEST Social History Tobacco Use Types Packs/Day Years [...] encounter Miscellaneous Notes * Telephone Encounter - Kamille Rueda RegSched Rep - 02/28/2025 4:24 PM EDT SPOKE WITH PATIENT AND SHE HAS SEEN MOST OF THE PROVIDERS IN [facility]. I TOLD HER I WOULD TRY PARADIGM, HER CONCERN IS THAT INJECTIONS DONT WORK FOR HER. * Telephone Encounter - Rosalba Lux RegSched Rep - 02/26/2025 2:38 PM EDT Caller: Tonya Kamara Relationship: Self Best call back number: Telephone Information: What is the medical concern/diagnosis: CHRONIC PAIN What specialty or service is being requested: PAIN MANAGEMENT What is the provider, practice or medical service name: WHOEVER IS RECOMMENDED Any additional details: PATIENT WAS BEING SEEN BY DR SILVERMAN WITH PAIN MANAGEMENT BUT MISSED HER APPOINTMENT DUE TO THE OF A FRIEND AND THEY WILL NOT RESCHEDULE HER APPOINTMENT. PATIENT DOES NOTBELIEVE THEY WILL HELP HER ANYMORE AND IS REQUESTING A NEW REFERRAL TO SEE A DIFFERENT PAIN MANAGEMENT DOCTOR. documented in this encounter Plan of Treatment Upcoming Encounters Date Type Department Care Team (Late st Contact Info) Description 04/08/2025 11:45 AM EDT Office Visit [facility] [address] [place] [address] Xavier Esposito MD [address] [place] [address] documented as of this encounter Visit Diagnoses Not on filedocumented in this encounter Care Teams Glucose And Syrup Weigher Relationship Specialty Start Date End Date Xavier Esposito MD [address] [place] [address] PCP - General Family Medicine 09/24/24 documented as of this encounter
--- OUTSIDE RECORDS SUMMARY | 2025-03-09 20:35 | XMS_ITS | Clinical Summary ---
Author Organization Healthcare Address [address] [place] [address] Care Team Providers Care Nurse Emergency Room Name Role Phone Renard Garcia MD Unavailable [phone] Yohana Aragon DO Unavailable [phone] Yvette Velarde SUPERVISOR [employer]ING Unavailable [phone] Pcp, No Primary Care Provider Unavailabl e [...] needed for irritation. 5 Active HYDROcodone-errol taminophen ([place]) 10-325 MG tablet Take 1 tablet (10 [...] (11/25/2021): Added automatically from request for surgery [id number] Encounters Date Type Department Care Team Description 01/29/2025 12:34 AM EDT - 01/29/2025 5:56 AM EDT Emergency [facility] Emergency Department [address] [place] [address] Jose Luis Tolbert DO Acute pain of left shoulder (Primary Dx); Chest pain, unspecified type; Other chronic pain Discharge Disposition: Home or Self Care 01/29/2025 Travel from Last 3 Months Immunizations Immunization [...] Sign Reading Time Taken Comments Blood Pressure 146/90 01/29/2025 5:56 AM EDT Pulse 79 01/29/2025 5:56 AM EDT Temperature 36.3 C (97.4 F) 01/29/2025 4:32 AM EDT Respiratory Rate 18 01/29/2025 5:56 AM EDT Oxygen Saturation 96% 01/29/2025 5:56 AM EDT Inhaled Oxygen Concentration - - Weight 68 kg (150 lb) 01/29/2025 12:23 AM EDT Height 162.6 cm (5' 4 ) 01/29/2025 12:23 AM EDT Body Mass Index 25.75 01/29/2025 12:23 AM EDT Plan of Treatment Health Maintenance Due Date Last Done Comments [facility]-Depression Screening 1971 [facility]-Infant/Child/Adol SDOH Screenings 1970 [facility]- SDOH Screenings 11/15/1989 [...] Hep B Twinrix 3-dose series) 08/08/2018 07/11/2018 [id number] Vaccine (2 - Pfizer risk series) 04/27/2021 04/06/2021 [facility]-Breast Cancer Screening 11/15/2021 [facility]-Zoster Vaccines (1 of 2) 11/15/2021 [facility]-Influenza Vaccine (#1) 2025 [facility]-Obesity Intervention Completed 025, 09/06/2024, 11/10/2023 [facility]-Hepatitis C Screening Completed 2024, 11/03/2023, 07/10/2019 [facility]-HIV Screening Completed 01/29/2025, 11/03/2023, 07/10/2019 HPV Vaccines Aged Out No [...] this topic Medical Devices Implanted Type Area Detention Officer Device Identifier Shelf Expiration Date Model / Serial / Lot One Level Plate, 12mm - [id number] Implanted:Qty : 1 on 11/28/2021 by Renard Garcia MD at [facility] Plate Spine Cervical [id number] 11/28/2022 [id number] / / Self Drilling Screw 14mm - [id number] Implanted:Qty : 2 on 11/28/2021 by Renard Garcia MD at [facility] Screw Spine Cervical [id number] 11/28/2022 [id number] / / Large Diameter 14mm - [id number] Implanted:Qty : 2 on 11/28/2021 by Renard Garcia MD at [facility] Screw Spine Cervical [id number] 11/28/2022 [id number] / / Nut Retainer - [id number] Implanted:Qty : 2 on 11/28/2021 by Renard Garcia MD at [facility] Washer Spine Cervical [employer] [id number] 11/28/2022 [id number] / / Knee Vanguard1 Cervical Preservon 7mm - [id number] - [id number] Implanted:Qty : 1 on 11/28/2021 by Renard aGrcia MD at [facility] Spine Cervical [employer] [id number] 07/05/2026 [id number] / [id number] / [id number] Graft Vivigen 1cc - [id number] - [id number] Implanted:Qty : 1 on 11/28/2021 by Renard Garcia MD at [facility] Spine Cervical [employer] [id number] 11/18/2022 [id number] / [id number] / [id number] Procedures Procedure Name Priority Date/Time Associated Diagnosis [...] 2 HOUR STAT 01/29/2025 12:49 AM EDT BASIC METABOLIC PANEL, PLASMA STAT 01/29/2025 12:49 AM EDT CBC WITH AUTO DIFFERENTIAL STAT 01/29/2025 12:49 AM EDT OXYGEN THERAPY STAT 01/29/2025 12:40 AM EDT ECG ADULT STAT 01/29/2025 12:27 AM EDT ACUTE HEPATITIS PANEL Routine 09/07/2024 8:04 AM EST from Last 3 Months or Most Recently Relevant to Health Maintenance Results * XR Chest 1 View (01/29/2025 [...] Daniel Peña MD on 01/29/2025 4:12 AM Jose Luis Tolbert DO IMG XR PROCEDURES Final Resu lt * Troponin T, High Sensitivity, 2 Hour, Plasma (01/29/2025 2:45 AM EDT) Troponin T, High Sensitivity, 2 Hour <6 <14 ng/L 01/29/2025 3:30 AM EDT [facility] Troponin Delta Interpretation Not Calculated 01/29/2025 3:30 AM EDT [facility] Comment:Specimen not collect ed within acceptable timeframe. Delta will not be calculated. Blood Venous blood specimen / Unknown Venipuncture / Unknown 01/29/2025 2:45 AM EDT 01/29/2025 3:00 AM EDT Jose Luis Aviles [facility] LAB BLOOD ORDERABLES Final R esult [facility] [address] [place] [address] * XR Shoulder Right 2+ Views (01/29/2025 [...] HIV 1/2 Differentiation (01/29/2025 12:49 AM EDT) Pathologist [facility] HIV 1 & 2 Antibody/Antigen Screen Non Reactive Non Reactive 01/29/2025 1:41 AM EDT [facility] Comment:Screening for HIV 1 & 2 antibodies, and P24 antigen is NONREACTIVE. No confirmatory testing is required. Blood Venous blood specimen / Unknown Venipuncture / Unknown 01/29/2025 12:49 AM EDT 01/29/2025 1:01 AM EDT us Jose Luis Tolbert DO LAB BLOOD ORDERABLES Final R esult [facility] [address] [place] [address] * Troponin now and 120 min (01/29/2025 12:49 AM EDT) Troponin T, High Sensitivity, 0 Hour <6 <14 ng/L 01/29/2025 1:26 AM EDT [facility] Blood Venous blood specimen / Unknown Venipuncture / Unknown 01/29/2025 12:49 AM EDT 01/29/2025 12:57 AM EDT Jose Luis Tolbert DO LAB BLOOD ORDERABLES Final R esult [facility] [address] [place] [address] * (ABNORMAL) CBC with Diff (01/29/2025 12:49 AM EDT) WBC Count 5.63 3.70 - 10.30 10*3/uL LAB HEMATOLOGY METHOD 01/29/2025 1:01 AM EDT [facility] RBC Count 3.82(L) 3.90 - 5.20 10*6/uL LAB HEMATOLOGY METHOD 01/29/2025 1:01 AM EDT [facility] HGB 11.5 11.2 - 15.7 g/dL LAB HEMATOLOGY METHOD 01/29/2025 1:01 AM EDT [facility] HCT 34.1 34.0 - 45.0 % LAB HEMATOLOGY METHOD 01/29/2025 1:01 AM EDT [facility] Platelet Count 324 155 - 369 10*3/uL LAB HEMATOLOGY METHOD 01/29/2025 1:01 AM EDT [facility] MCV 89 79 - 98 fL LAB HEMATOLOGY METHOD 01/29/2025 1:01 AM EDT [facility] MCH 30.1 26.0 - 32.0 pg LAB HEMATOLOGY METHOD 01/29/2025 1:01 AM EDT [facility] MCHC 33.7 30.7 - 35.5 g/dL LAB HEMATOLOGY METHOD 01/29/2025 1:01 AM EDT [facility] RDW 14.6(H) 11.5 - 14.5 % LAB HEMATOLOGY METHOD 01/29/2025 1:01 AM EDT [facility] MPV 8.8 8.8 - 12.5 fL LAB HEMATOLOGY METHOD 01/29/2025 1:01 AM EDT [facility] nRBC 0.0 <=0.0 per 100 WBCs LAB HEMATOLOGY METHOD 01/29/2025 1:01 AM EDT [facility] Differential Type Automated LAB HEMATOLOGY METHOD 01/29/2025 1:01 AM EDT [facility] Neutrophils % 32 % LAB HEMATOLOGY METHOD 01/29/2025 1:01 AM EDT [facility] Lymphocytes % 61 % LAB HEMATOLOGY METHOD 01/29/2025 1:01 AM EDT [facility] Monocytes % 6 % LAB HEMATOLOGY METHOD 01/29/2025 1:01 AM EDT [facility] Eosinophils % 1 % LAB HEMATOLOGY METHOD 01/29/2025 1:01 AM EDT [facility] Basophils % 0 % LAB HEMATOLOGY METHOD 01/29/2025 1:01 AM EDT [facility] Immature Granulocytes % 0 % LAB HEMATOLOGY METHOD 01/29/2025 1:01 AM EDT [facility] Neutrophils Absolute 1.82 1.60 - 6.10 10*3/uL LAB HEMATOLOGY METHOD 01/29/2025 1:01 AM EDT [facility] Lymphocytes Absolute 3.41 1.20 - 3.90 10*3/uL LAB HEMATOLOGY METHOD 01/29/2025 1:01 AM EDT [facility] Monocytes Absolute 0.31 0.30 - 0.90 10*3/uL LAB HEMATOLOGY METHOD 01/29/2025 1:01 AM EDT [facility] Eosinophils Absolute 0.07 0.00 - 0.50 10*3/uL LAB HEMATOLOGY METHOD 01/29/2025 1:01 AM EDT [facility] Basophils Absolute 0.01 0.00 - 0.10 10*3/uL LAB HEMATOLOGY METHOD 01/29/2025 1:01 AM EDT [facility] Immature Granulocytes Absolute 0.01 0.00 - 0.06 10*3/uL LAB HEMATOLOGY METHOD 01/29/2025 1:01 AM EDT [facility] Blood Venous blood specimen / Unknown Venipuncture / Unknown 01/29/2025 12:49 AM EDT 01/29/2025 12:57 AM EDT [facility] - 01/29/2025 1:01 AM EDT Therapeutic decision making should be based on absolute values, rather than percentages. us Jose Luis Tolbert DO LAB BLOOD ORDERABLES Final R esult [facility] [address] [place] [address] * (ABNORMAL) BMP (01/29/2025 12:49 AM EDT) Glucose, Plasma 77 74 - 99 mg/dL 01/29/2025 1:26 AM EDT [facility] BUN, Plasma 8 7 - 21 mg/dL 01/29/2025 1:26 AM EDT [facility] Creatinine, Plasma 0.67 0.60 - 1.10 mg/dL 01/29/2025 1:26 AM EDT [facility] BUN/Creatinine Ratio 12 01/29/2025 1:26 AM EDT [facility] Sodium, Plasma 133(L) 136 - 145 mmol/L 01/29/2025 1:26 AM EDT [facility] Potassium, Plasma 3.5(L) 3.6 - 4.9 mmol/L 01/29/2025 1:26 AM EDT [facility] Chloride, Plasma 97 97 - 107 mmol/L 01/29/2025 1:26 AM EDT [facility] CO2, Plasma 21(L) 22 - 29 mmol/L 01/29/2025 1:26 AM EDT [facility] Anion Gap 15 6 - 16 mmol/L 01/29/2025 1:26 AM EDT [facility] Total Calcium, Plasma 9.3 8.9 - 10.2 mg/dL 01/29/2025 1:26 AM EDT [facility] eGFRcr 104.7 mL/min/1.7 3m*2 01/29/2025 1:26 AM EDT [facility] Comment:Reported eGFRcr in m L/min/1.73m2 is based the CKD-EPI 2020 equation that does not use a race coefficient. Blood Venous blood specimen / Unknown Venipuncture / Unknown 01/29/2025 12:49 AM EDT 01/29/2025 12:57 AM EDT Jose Luis Tolbert DO LAB BLOOD ORDERABLES Final R esult [facility] [address] [place] [address] * EKG now - STAT (adult) (01/29/2025 12:27 AM EDT) EKG DIAGNOSIS CLASS Borderline Abnormal MUSE ECG Ventricular Rate 95 BPM MUSE ECG Atrial Rate 95 BPM MUSE ECG [place] Interval 176 ms MUSE ECG QRSD Interval 80 ms MUSE ECG QT Interval 368 ms MUSE ECG QTC Interval 462 ms MUSE ECG P [place] 39 degrees MUSE ECG R [place] 37 degrees MUSE ECG T Wave [place] 48 degrees MUSE ECG Diagnosis Normal sinus rhythm MUSE ECG Diagnosis Possible Left atrial enlargement MUSE ECG Diagnosis Borderline ECG MUSE ECG Diagnosis MUSE ECG Diagnosis Confirmed by Bo Renee ([id number]) on 01/29/2025 12:53:04 PM MUSE ECG 01/29/2025 12:2 7 AM EDT 01/29/2025 12:53 PM EDT Maricruz Oreilly MD ECG ORDERABLES Final Result MUSE ECG * Hepatitis panel, acute (09/07/2024 8:04 AM EST) Hepatitis B Surf Antigen Negative Negative 09/07/2024 10:36 AM EST [facility] Hepatitis C Antibody Negative Negative 09/07/2024 10:36 AM EST [facility] Hepatitis A Antibody IgM Negative Negative 09/07/2024 10:36 AM EST [facility] Hepatitis B Core Antibody IgM Negative Negative 09/07/2024 10:36 AM EST [facility] Blood Venous blood specimen / Unknown Venipuncture / Unknown 09/07/2024 8:04 AM EST 09/07/2024 8:14 AM EST Manjit Whitt APRN, ALAN LAB BLOOD ORDERABLES Fi nal Result [facility] [address] [place] [address] from Last 3 Months or Most Recently Relevant to Health Maintenance Insurance [facility] MEDICAID Advance Directives * Full Code (Latest Code Status on File) Date Activated Date Inactivated Comments 09/07/2024 6:46 AM 09/12/2024 6:58 PM Question Answer Comments Patient has decision-making capacity? Yes Care Teams Nurse Emergency Room Relationship Specialty Start Date End Date Pcp, No [address] [place] [address] PCP - General Family Medicine 01/29/25 Renard Garcia MD [address] [facility] [place] [address] Surgeon Neurosurgery 11/25/21 Yohana Aragon DO [address] [place] [address] Obstetrics and Gynecology 10/22/22 Yvette Velarde APRN [address] [place] [address] Nurse Practitioner Neurosurgery 11/10/23
--- NOTE | 2025-03-09 20:36 | PC.NURSE ---
Radiology at bedside
[2025-03-09 20:47] LABS: Albumin Level 5.0 g/dl (3.5-5.0); Chloride 102 mmol/L (98-107); Sodium 138 mmol/L (136-145)
[2025-03-09 20:48] LABS: Potassium 3.6 mmoL/L (3.5-5.1)
[2025-03-09 20:48] LABS: Bilirubin,Urine Negative (Negative); Color,Urine YELLOW (Yellow); Glucose,Urine (UA) Negative (Negative); Ketones,Urine Negative (Negative); Leukocyte Esterase,Urine Negative (Negative); Microscopic, Urine URINE MICROSCOPIC (MICROSCOPIC); PH,Urine 6.5 (5.0-8.5); Protein,Urine Negative (Negative); Specific Gravity, Urine <= 1.005 (1.005-1.030); Urobilinogen,Urine 0.2 EU/dl (0.2)
[2025-03-09 20:50] LABS: Alanine Aminotransferase 37 U/L (12-78); Alkaline Phosphatase 139 U/L (38-126); Anion Gap 12.6 mEq/L (5-15); Aspartate Amino Transferase 98 U/L (14-36); Bilirubin,Total 0.9 mg/dl (0.2-1.3); Blood Urea Nitrogen 9 mg/dl (7-17); Carbon Dioxide 27 mmol/L (22.0-30.0); Creatinine Clearance Estimated 105 mL/min (50-200); Creatinine,Serum 0.60 mg/dl (0.52-1.04); Estimated Glomerular Filt Rate 105 ml/min (>60); GFR (African American) 127 ML/MIN (>60)
[2025-03-09 20:51] LABS: Albumin/Globulin Ratio 1.3 (1.1-1.8); Calcium 9.8 mg/dl (8.4-10.2); Globulin 3.9 g/dL (1.3-3.2); Glucose 115 mg/dl (74-100); Total Protein,Serum 8.9 g/dl (6.3-8.2)
[2025-03-09 21:01] LABS: Barbiturates Screen,Urine Negative ng/ml (<200); Benzodiazepines Screen,Urine Negative ng/ml (<200)
[2025-03-09 21:02] LABS: Amphetamine/Metha Screen,Urine Negative ng/ml (<1000)
[2025-03-09 21:04] LABS: Methadone Screen,Urine Negative ng/ml (<300); Opiate Screen,Urine Negative ng/ml (<300)
[2025-03-09 21:05] LABS: Troponin I < 0.01 ng/ml (0.00-0.034)
[2025-03-09 21:05] LABS: Phencyclidine Screen,Urine Negative ng/ml (<25)
--- NOTE | 2025-03-09 21:24 | PC.NURSE ---
PRovider at bedside.
[2025-03-09 21:30] LABS: Bacteria,Urine 4+ /lpf
[2025-03-09] MEDS: APAP/HYDROCODONE 325MG/7.5MG TAB 1 TAB PO (21:32)
[2025-03-09 21:50] LABS: Hepatitis C Ab Qual. W/ RFX NEGATIVE (Negative)
[2025-03-09] MEDS: ONDANSETRON 4MG/2ML VIAL 4 MG IV (22:17)
[2025-03-09] MEDS: ACETAMINOPHEN 500MG TAB 1000 MG PO (23:19)
[2025-03-09] MEDS: BELLADONNA ALKALOIDS 60 ML ML PO (23:19)
[2025-03-10] VITALS (9 sets, daily range): BP systolic 128–159; BP diastolic 76–126; PULSE 68–102; RESP 18–22; TEMP 36.5–36.9; O2SAT 96–100; BMI 24.2
[2025-03-10] LABS: Troponin I < 0.01 ng/ml (0.00-0.034)
[2025-03-10] MEDS: ONDANSETRON 4MG/2ML VIAL 4 MG IV ×3 (00:05→17:51)
--- NOTE | 2025-03-10 00:27 | PC.NURSE ---
Report given to Autumn RN
--- NOTE | 2025-03-10 00:31 | EXP.HP ---
History of Present Illness *Admission Date: 03/10/25 *Reason for visit:: Chest pain *History of present illness: This is a 54-year-old female that presents to [facility] emergency department with concerns of chest pain. She is accompanied by her significant other and I am accompanied by her nurses Autumn and Andria. She describes a centrally located chest pain that started earlier today. She characterizes her pain as sharp and radiates to her neck and shoulders. It is rated as a 6 out of 10. She denies associated retro-sternal chest pain, dyspnea, palpitations, confusion or diaphoresis. She has experienced no associated nausea and vomiting but does endorse reflux symptoms. She reports previous GI evaluations and endoscopies. Her past medical history is significant for degenerative disc disease of her cervical spine with previous surgery and chronically prescribed opioid therapy. She reports a surgeon told her she needed to undergo a breast reduction. She reports a significant history of anxiety with previous behavioral medicine evaluations and chronically prescribed benzodiazepine therapy. In the ED her ECG identified no acute changes and her troponins were negative x 2. Hospital medicine was asked to admit the patient for observation concerning her social determinants of health (she lives alone) and anxiety reported in the ED. [facility] Medical History (Updated 03/10/25 @ 01:54 by Brant Rangel MD) Asthma Hypothyroid Anxiety disorder Chronically on benzodiazepine therapy Chronic, continuous use of opioids DJD (degenerative joint disease) of cervical spine Alcohol use disorder History of ovarian cancer Colon cancer LGSIL Pap smear of vagina Lumbar disc disease with radiculopathy Surgical History History of cranial surgery Hx of neck surgery History of hysterectomy History of cholecystectomy Family History Other Anemia Asthma Cancer Coronary artery disease Diabetes Family history of bronchitis Family history of myocardial infarction Family history of stroke Heart attack Hyperlipidemia Hypertension Kidney disease Stroke Thyroid disorder Social History (Updated 03/10/25 @ 01:21 by Andria Perry RN) Smoking Status: Never smoker second hand exposure: No alcohol intake: former substance use type: denies use current occupational status: disabled Travel in the last 8 weeks?: None household members: none housing: house lives independently: Yes marital status: single number of children: 3 education level: high school current occupational exposures/hazards: No caffeine: No special christopher needs: No agree to transfusion: No do you feel safe at home: Yes victim of physical abuse: No victim of emotional abuse: No victim of sexual abuse: No would you like helpful sources: No Have you lived/traveled outside US in past 30 days?: No Contact w/someone who lives/traveled outside US past 30 days?: No Exposure to someone with infectious disease in past 14 days?: No Do you have a fever (greater than 100.4 F or 38 C)?: No Have you tested positive for COVID-19?: No Exposed to someone with COVID-19 in past 14 days?: No Do you have a sore throat?: No Do you have a cough?: No Do you have any weakness?: No Are you experiencing any nausea/vomitting?: No Do you have any diarrhea?: No Are you experiencing any unusual bleeding?: No Do you have any muscle aches/pain?: No Do you have any abdominal pain?: No Are you experiencing loss of taste or smell?: No Other Medical History Have you received the Flu Vaccine for this season: No Have you received the Pneumonia Vaccine: No Review of Systems Review of Systems Review of systems:: pertinent systems reviewed and negative unless documented below Meds Home Medications and Allergies Home Medications ?Medication ?Instructions ?Recorded ?Confirmed ?Type promethazine 25 mg tablet 25 mg PO BIDP PRN Nausea And 07/24/24 03/10/25 History Vomiting albuterol sulfate 90 mcg/actuation 1 inh inhalation Q6H PRN Shortness 11/22/24 03/10/25 History aerosol inhaler Of Breath hydrocortisone-aloe vera 1 % 1 applic topical TID PRN skin 12/27/24 03/10/25 Rx topical cream (Anti-Itch irritation #28 grams (hydrocortisone) with Aloe) omeprazole 40 mg capsule,delayed 40 mg PO DAILY #90 caps 01/07/25 03/10/25 Rx release hydrocodone 10 mg-acetaminophen 1 tab PO Q8H PRN pain #45 tabs 01/16/25 03/10/25 Rx 325 mg tablet clonazepam 0.5 mg tablet (Klonopin) 0.5 mg PO BID anxiety 30 days #60 01/17/25 03/10/25 Rx tabs levothyroxine 25 mcg tablet 25 mcg PO DAILY #90 tabs 02/21/25 03/10/25 Rx fluticasone propionate 50 1 spray intranasal BID PRN allergy 02/25/25 03/10/25 Rx mcg/actuation nasal symptoms #16 grams spray,suspension loperamide 2 mg capsule 6 mg (3 x 2 mg) PO BID PRN loose 02/25/25 03/10/25 Rx stool #30 caps benzonatate 100 mg capsule 100 mg PO TID PRN Cough 03/10/25 03/10/25 History New Prescriptions to Start Prescriptions: Allergies Allergy/AdvReac Type Severity Reaction Status Date / Time lidocaine Allergy Intermediate Red, Rash, Verified 02/27/25 09:50 Itching codeine (CODEINE) Allergy Unknown VOMITING Verified 02/27/25 09:50 erythromycin base Allergy Unknown ITCHING/HIV Verified 02/27/25 09:50 (ERYTHROMYCIN BASE) ES Penicillins (PENICILLINS) Allergy Unknown VOMITING Verified 02/27/25 09:50 ibuprofen Allergy Hives Verified 02/27/25 09:50 tramadol AdvReac Hives Verified 02/27/25 09:50 Exam Data for Last 24 hours Vital signs and Labs for Last 24 Hours: Temp Pulse Resp BP Pulse Ox O2 Del Method 98.1 F 83 15 166/85 H 96 Room Air 03/09/25 20:29 03/09/25 23:30 03/09/25 23:30 03/09/25 23:30 03/09/25 23:30 03/09/25 21:13 Laboratory Results - last 24 hr 03/09/25 20:07: WBC 7.3, RBC 4.07 L, Hgb 12.5, Hct 37.0, MCV 90.9, MCH 30.7, MCHC 33.8, RDW 16.3, Plt Count 348, MPV 9.5, Neut % (Auto) 43.7, Lymph % (Auto) 49.7, [place] % (Auto) 5.3, Eos % (Auto) 0.5, Baso % (Auto) 0.5, Neut # (Auto) 3.2, Lymph # (Auto) 3.6, [place] # (Auto) 0.4, Eos # (Auto) 0.0, Baso # (Auto) 0.0, Sodium 138, Potassium 3.6, Chloride 102, Carbon Dioxide 27, Anion Gap 12.6, BUN 9, Creatinine 0.60, Estimated Creat Clear 105, Estimated GFR 105, Est GFR ( Amer) 127, Glucose 115 H, Calcium 9.8, Total Bilirubin 0.9, AST 98 H, ALT 37, Alkaline Phosphatase 139 H, Troponin I < 0.01, Total Protein 8.9 H, Albumin 5.0, Globulin 3.9 H, Albumin/Globulin Ratio 1.3, Plasma/Serum Alcohol < 10, HCV Ab DAISY w/Rflx PCR Qn Negative, HIV Ag/Ab Combo Qual Negative 03/09/25 20:41: Urine Color Yellow, Urine Appearance Clear, Urine pH 6.5, Ur Specific [place] <= 1.005, Urine Protein Negative, Urine Glucose (UA) Negative, Urine Ketones Negative, Urine Blood Negative, Urine Nitrate Negative, Urine Bilirubin Negative, Urine Urobilinogen 0.2, Ur Leukocyte Esterase Negative, Urine RBC None, Urine WBC 5-10, Ur Squamous Epith Cells 3-5, Urine Bacteria 4+, Urine Opiates Screen Negative, Urine Methadone Screen Negative, Ur Barbituates Screen Negative, Ur Phencyclidine Scrn Negative, Ur Amphetamines Screen Negative, U Benzodiazepines Scrn Negative, Urine Cocaine Screen Negative, U Marijuana (THC) Screen Negative 03/09/25 23:24: Troponin I < 0.01 I & O for Last 24 hours: Intake & Output 03/07/25 03/08/25 03/09/25 03/10/25 23:59 23:59 23:59 23:59 Weight 61.235 kg Constitutional Constitutional: no acute distress, chronically ill appearing and cooperative *Routine HEENT Exam Head: Present normocephalic Eye: Present EOMI and PERRL ENT: Present mucous membranes moist *Routine Neck Exam Neck: Present trachea midline; Absent full ROM or JVD Comments: Trigger points tender to palpation across trapezius with diminished range of motion of cervical spine *Routine Respiratory Exam Respiratory: Present rhonchi, normal respiratory effort and symmetric chest movement *Routine Cardiovascular Exam Cardiovascular: Present RRR, Normal S1 and Normal S2; Absent murmur *Routine Abdominal Exam Abdominal: Present soft and normoactive bowel sounds; Absent tenderness or distended *Routine Rectal Exam Rectal:: deferred *Routine Genitalia Exam Genitalia:: deferred *Routine Extremities Exam Extremities: Present full ROM; Absent edema *Routine Skin Exam Skin: Present intact; Absent rash *Routine Neurological Exam Neurological: Present alert, oriented X3, moving all extremities, vision grossly intact, hearing grossly intact and normal speech; Absent sensory deficit or motor deficit Routine Psychiatric Exam Psychiatric: Present normal affect, normal thought process, cooperative, good insight and anxious Assessment and Plan *Assessment and plan (1) Unstable angina: Status: Acute Category: Medical Code(s): I20.0 - Unstable angina (2) Anxiety disorder: Status: Acute Category: Medical Code(s): F41.9 - Anxiety disorder, unspecified (3) Alcohol use disorder: Status: Acute Category: Medical Code(s): F10.90 - Alcohol use, unspecified, uncomplicated (4) Chronic pain: Status: Acute Category: Medical Code(s): G89.29 - Other chronic pain (5) Asthma: Status: Acute Category: Medical Code(s): J45.909 - Unspecified asthma, uncomplicated Plan This is a 54-year-old female that presents to the ED with chest pain. She has a chronic history of breast hypertrophy and DJD of the cervical spine. She reports no previous cardiac catheterization but does report previous EGD and colonoscopies. She describes significant anxiety concerning her chronic health problems, opioid therapy and describes recent interactions with the [place] Board of medical licensure. She is due to see a document control clerk on Tuesday. Medical problems addressed as follows: Unstable angina Atypical chest pain Telemetry monitoring Admission ECG with sinus tachycardia rate 104 QTc [address]-T changes ED troponin negative x 2 ED chest x-ray with no acute cardiopulmonary disease CT chest (10/08/2024): No acute findings, lungs unremarkable, coronary arteries no atherosclerotic calcifications Morning ECG pending Troponin trend Previous lipid evaluations noted with HDLs greater than 100 Antiplatelet therapy Statin therapy Beta-parmjit therapy Cardiac catheterization na?ve Asthma Pulse oximetry monitoring Oxygen therapy to maintain appropriate oxygen saturations Currently oxygenating appropriately on room air Morning magnesium level Nyasia/Chip inhalation therapy P.o. prednisone PPI therapy Aisha Rice as the patient requests Outpatient pulmonology evaluation scheduled for 03/11/2025 Anxiety disorder Posttraumatic stress disorder Chronically prescribed benzodiazepine therapy Routine nursing interaction Behavioral medicine evaluation (02/27/2025) reviewed Resume home Klonopin therapy Continue with outpatient behavioral medicine evaluations Alcohol use disorder in remission Last alcohol intake greater than 3 months Outpatient care Chronic pain Chronically prescribed opioid therapy DJD cervical spine s/p cervical spine surgery Resume home opioid therapy Outpatient PT and OT evaluations Continue outpatient and follow-up with surgery
--- NOTE | 2025-03-10 00:32 | PC.NURSE ---
PT had pocket knife in possession. This nurse asked if knife could be stored at nurses station until d/c. Knife at nurses desk with PT label applied.
--- NOTE | 2025-03-10 00:39 | PC.NURSE ---
Knife given to visitor.
--- NOTE | 2025-03-10 00:57 | PC.NURSE ---
Patient arrived to floor via wheelchair from ED at 00:43.
--- NOTE | 2025-03-10 01:05 | PC.NURSE ---
Chad Rangel MD is consulting with the patient at the bedside at this time.
[2025-03-10] MEDS: BENZONATATE 100MG CAPSULE 200 MG PO ×4 (01:27→21:05)
[2025-03-10] MEDS: HYDROCODONE/APAP 5/325 MG TABLET 2 TAB PO ×4 (01:30→23:57)
[2025-03-10 03:21] LABS: Troponin I < 0.01 ng/ml (0.00-0.034)
--- NOTE | 2025-03-10 05:20 | PC.NURSE ---
Ms Tonya Kamara was newly admitted this shift on behalf of the documented diagnosis unstable angina. Admission assessments (minus biophysical) and home medication reconciliation were completed by the charge nurse (Stefan Perry RN). During wakeful periods, the patient presents anxiousness at times. She continues to report having acute (intermittent chest pain that radiates to her neck) and chronic pain (back, spinal). [place] was administered per SEP for severe pain relief. The patient has described her chest pain as sharp and stabbing and states that she just does not feel good overall. She also reports having a persistent, dry cough since receiving a GI cocktail in the ER; Tessalon Perles were given per SEP to aid with her cough this shift. Patient ambulates independently in her room without difficulties. Lung sounds were diminished upon auscultation; oxygen saturations > 90% on room air. On telemetry. At this time, the patient is resting in bed with eyes closed, and her respirations are even and unlabored. Her visitor remains at the bedside. No new needs thus far. Call light within reach. Medications brought from home are locked in room drawer.
[2025-03-10] MEDS: LEVOTHYROXINE 25MCG (0.025MG) TAB 25 MCG PO (06:30)
[2025-03-10 06:43] LABS: Magnesium 1.8 mg/dl (1.6-2.3)
[2025-03-10] MEDS: PANTOPRAZOLE 40MG TABLET 40 MG PO ×2 (06:48→21:05)
[2025-03-10 06:53] LABS: Troponin I < 0.01 ng/ml (0.00-0.034)
[2025-03-10 08:31] LABS: Cholesterol 229 mg/dl (140-200); Triglycerides 44 mg/dl (30-150)
[2025-03-10 08:39] LABS: HDL Cholesterol 119 mg/dl (40-60)
[2025-03-10 08:47] LABS: Hemoglobin A1C 5.3 % (4.0-6.0)
--- NOTE | 2025-03-10 09:00 | HMH.PHAINT1 ---
Pharmacy Intervention Comments: MEDICATION RECONCILIATION COMPLETE USING EXTERNAL PHARMACY FILL HISTORY, SANTOS REPORT.
[2025-03-10 09:04] LABS: Thyroid Stimulating Hormone 7.13 uIU/mL (0.465-4.68)
[2025-03-10] MEDS: METOPROLOL SUCCINATE XL 25MG TABLET 25 MG PO (09:15)
[2025-03-10] MEDS: DOCUSATE SODIUM 100 MG CAPSULE PO (09:18)
[2025-03-10] MEDS: ASPIRIN EC 81MG TABLET 81 MG PO (09:18)
[2025-03-10] MEDS: PROMETHAZINE 25MG TABLET 25 MG PO (09:26)
[2025-03-10] MEDS: ATORVASTATIN 40MG TABLET 80 MG PO (21:05)
[2025-03-11] VITALS (14 sets, daily range): BP systolic 51–145; BP diastolic 21–82; PULSE 40–80; RESP 16–24; TEMP 36.3–36.8; O2SAT 92–100; BMI 25.5
--- NOTE | 2025-03-11 05:23 | PC.NURSE ---
Alert and oriented. Independent in room. Patient took shower this shift, stated it wore her out. Room air, lung sounds clear. Tele NSR. Complained of pain, treated per sep. No complaints this shift. Call light in reach.
--- NOTE | 2025-03-11 06:00 | CA_ITS ---
APPROVED REPORT EXAM: Comprehensive 2D, Doppler, and color-flow Echocardiogram Dough Molder: Caroline Santiago CRT Ht: 5 ft 4 in Wt: 142lbs BSA: 1.69 BP: 166/85 mmHg Indications: Chest Pain 2D Dimensions LA Volume 40.20 mL LA Volume Index 23.20 mL/m2 (M/F) 16-34 EF AP4 39.30 % GL Strain 1.6 % M-Mode Dimensions RVDd 2.18 cm (0.9-2.6) LA Diam 3.37 cm (1.9-4.0) LVDd 3.76 cm (3.5-5.7) LVDs 2.38 cm (3.5-5.7) IVSd 1.17 cm (0.6-1.1) PWd 0.88 cm (0.6-1.1) EF (Teich) 67.40% FS 36.70% EDV (Teich) 60.40 mL TAPSE 1.86 (<1.7) ESV (Teich) 19.70 mL LV Diastology E Decel Time 203 (160-240 msec) E/A Ratio 0.72 MED A' 10.90 cm/s LAT A' 9.80 cm/s Aortic Valve AO Peak GR. 6.50 mmHg Mitral Valve MV E Max Roosevelt. 69.0 (40-130 cm/s) MV A Velocity 95.0 (40-130 cm/s) E/A Ratio 0.72 MV PHT 60.0 ms Pulmonary Valve PV Peak Velocity 103.0 (50-150 cm/s) Tricuspid Valve TR P. Velocity 207.00 cm/s RAP Estimate 10.00 mmHg RVSP 27.10 mmHg Left Ventricle The left ventricle is normal size. Left ventricular systolic function is normal. The left ventricular ejection fraction is within the normal range. There is increased left ventricular wall thickness. There is normal LV segmental wall motion. Transmitral Doppler flow pattern suggests impaired LV relaxation. LVEF is 60% Right Ventricle The right ventricle is normal size. The right ventricular systolic function is normal. Atria The left atrium is mildly dilated. The right atrium is mildly dilated. There is no color Doppler evidence of interatrial shunt. Aortic Valve The aortic valve opens well. There is no hemodynamically significant aortic valvular stenosis. No aortic regurgitation is present. Mitral Valve The mitral valve is normal in structure. No evidence of mitral valve stenosis. Mild mitral regurgitation is present. Tricuspid Valve The tricuspid valve leaflets are thin and pliable. Mild tricuspid regurgitation. RVSP is 25-30 mmHg. Pulmonic Valve The pulmonary valve is grossly normal in structure. Mild pulmonic valve regurgitation is present. Great Vessels The aortic root is normal in size. IVC is normal in size and collapses >50% with inspiration. Pericardium There is no pericardial effusion. Other Information Study Quality: Fair Conclusion Normal biventricular systolic function. Mild biatrial dilation. Mild MR, mild TR, mild PI. Electronically signed by : Irene Todd MD 03/12/2025 12:54:02
[2025-03-11] MEDS: LEVOTHYROXINE 25MCG (0.025MG) TAB 25 MCG PO (06:01)
[2025-03-11] MEDS: HYDROCODONE/APAP 5/325 MG TABLET 2 TAB PO ×3 (06:02→21:26)
[2025-03-11] MEDS: ONDANSETRON 4MG/2ML VIAL 4 MG IV (07:46)
[2025-03-11] MEDS: BENZONATATE 100MG CAPSULE 200 MG PO ×2 (08:17→21:27)
[2025-03-11] MEDS: DOCUSATE SODIUM 100 MG CAPSULE PO (08:18)
[2025-03-11] MEDS: METOPROLOL SUCCINATE XL 25MG TABLET 25 MG PO (08:18)
[2025-03-11] MEDS: ASPIRIN EC 81MG TABLET 81 MG PO (08:18)
[2025-03-11 09:37] LABS: Hematocrit 36.3 % (37.0-47.0); Hemoglobin 11.7 g/dL (12.2-16.2); Immature Granulocytes % 0.2 %; Mean Corpuscular HGB Conc 32.2 g/dL (31.8-35.4); Mean Corpuscular Hemoglobin 30.0 pg (27.0-31.2); Mean Corpuscular Volume 93.1 fl (81-99); Nucleated Red Blood Cells % 0 %; Platelet Count 292 K/mm3 (142-424); Red Blood Count 3.90 M/mm3 (4.20-5.40); Red Cell Distribution Width-SD 54.2 fL; White Blood Count 5.2 K/mm3 (4.8-10.8)
[2025-03-11] MEDS: UMECLIDINIUM/VILANTEROL 62.5/25MCG INHALER 1 PUFF IH (09:41)
[2025-03-11 09:43] LABS: Albumin Level 4.6 g/dl (3.5-5.0); Chloride 102 mmol/L (98-107); Potassium 3.9 mmoL/L (3.5-5.1); Sodium 135 mmol/L (136-145)
[2025-03-11 09:46] LABS: Alanine Aminotransferase 32 U/L (12-78); Albumin/Globulin Ratio 1.4 (1.1-1.8); Alkaline Phosphatase 134 U/L (38-126); Anion Gap 13.9 mEq/L (5-15); Aspartate Amino Transferase 71 U/L (14-36); Bilirubin,Total 1.0 mg/dl (0.2-1.3); Blood Urea Nitrogen 9 mg/dl (7-17); Calcium 9.4 mg/dl (8.4-10.2); Carbon Dioxide 23 mmol/L (22.0-30.0); Creatinine Clearance Estimated 100 mL/min (50-200); Creatinine,Serum 0.70 mg/dl (0.52-1.04); Estimated Glomerular Filt Rate 88 ml/min (>60); GFR (African American) 106 ML/MIN (>60); Globulin 3.2 g/dL (1.3-3.2); Glucose 97 mg/dl (74-100); Total Protein,Serum 7.8 g/dl (6.3-8.2)
[2025-03-11] MEDS: METOPROLOL TARTRATE 50MG TABLET *IVABRADINE+METOPROLOL REGIMINE 75 MG PO (10:19)
[2025-03-11] MEDS: IVABRADINE HCL 7.5MG TABLET *IVABRADINE+METOPROLOL REGIMINE 15 MG PO (10:19)
[2025-03-11 10:30] LABS: Free T4 (Free Thyroxine) 1.46 ng/dl (0.78-2.19)
[2025-03-11] MEDS: METOPROLOL TARTRATE 5MG/5ML VIAL *IVABRADINE+METOPROLOL REGIMINE 5 MG IV ×6 (11:17→12:29)
[2025-03-11] MEDS: DILTIAZEM IV (12:51)
[2025-03-11] MEDS: [UNRECOGNIZED DRUG - OTHER] IV (12:51)
--- NOTE | 2025-03-11 12:57 | EXP.CARD.CON ---
History of Present Illness History of Present Illness Consult date: 03/11/25 Requesting physician: Sridhar Reeves Consult reason: chest pain Chief complaint: chest pain History of present illness: This is a 54-year-old white female who presented to the emergency department with complaints of chest pain. She states that she has pain in the central aspect of her chest. She describes this as a sharp pain that radiated to her neck and bilateral shoulders. She states that the pain was a 6 out of 10 in intensity. It is associated with shortness of breath. She states that she has had reflux/GERD in the past and the symptoms are not the same. The patient states that she has a history of having palpitations and extra beats of the heart but this has gotten much worse and this chest pain is different now. She states that she is very concerned that something may be going on with her heart. She has ruled out for an CA. She denies any fever, chills, nausea, vomiting, diarrhea, PND orthopnea. [facility] Disclaimer: The information contained in this section may have been updated after the patient was seen, as this information can be updated by other users. Medical History (Updated 03/11/25 @ 13:05 by Daniela Buitrago APRN) Hyperlipidemia Chest pain Asthma Hypothyroid Anxiety disorder Chronically on benzodiazepine therapy Chronic, continuous use of opioids DJD (degenerative joint disease) of cervical spine Alcohol use disorder History of ovarian cancer Colon cancer LGSIL Pap smear of vagina Lumbar disc disease with radiculopathy Surgical History History of cranial surgery Hx of neck surgery History of hysterectomy History of cholecystectomy Family History Other Anemia Asthma Cancer Coronary artery disease Diabetes Family history of bronchitis Family history of myocardial infarction Family history of stroke Heart attack Hyperlipidemia Hypertension Kidney disease Stroke Thyroid disorder Social History (Updated 03/10/25 @ 01:21 by Andria ePrry RN) Smoking Status: Never smoker second hand exposure: No alcohol intake: former substance use type: denies use current occupational status: disabled Travel in the last 8 weeks?: None household members: none housing: house lives independently: Yes marital status: single number of children: 3 education level: high school current occupational exposures/hazards: No caffeine: No special christopher needs: No agree to transfusion: No do you feel safe at home: Yes victim of physical abuse: No victim of emotional abuse: No victim of sexual abuse: No would you like helpful sources: No Have you lived/traveled outside [place] in past 30 days?: No Contact w/someone who lives/traveled outside US past 30 days?: No Exposure to someone with infectious disease in past 14 days?: No Do you have a fever (greater than 100.4 F or 38 C)?: No Have you tested positive for COVID-19?: No Exposed to someone with COVID-19 in past 14 days?: No Do you have a sore throat?: No Do you have a cough?: No Do you have any weakness?: No Are you experiencing any nausea/vomitting?: No Do you have any diarrhea?: No Are you experiencing any unusual bleeding?: No Do you have any muscle aches/pain?: No Do you have any abdominal pain?: No Are you experiencing loss of taste or smell?: No Review of Systems Review of Systems Review of systems:: pertinent systems reviewed and negative unless documented below Constitutional Constitutional: Reports system reviewed and no additional complaints, except as documented Eyes Eyes: Reports system reviewed and no additional complaints, except as documented ENT Ears, Nose, Mouth, and Throat: Reports system reviewed and no additional complaints, except as documented *Cardiovascular Cardiovascular: Reports system reviewed and no additional complaints, except as documented, Reports chest pain, Reports chest pain at rest, Reports chest pain with activity, Reports dyspnea, Reports dyspnea on exertion, Reports palpitations, Reports radiating jaw, neck or arm pain and Reports rapid heart rate *Respiratory Respiratory: Reports system reviewed and no additional complaints, except as documented, Reports dyspnea and Reports dyspnea on exertion *Gastrointestinal Gastrointestinal: Reports system reviewed and no additional complaints, except as documented *Genitourinary Genitourinary: Reports system reviewed and no additional complaints, except as documented *Musculoskeletal Musculoskeletal: Reports system reviewed and no additional complaints, except as documented Integumentary/Breasts Skin/Breast: Reports system reviewed and no additional complaints, except as documented *Neurologic Neurologic: Reports system reviewed and no additional complaints, except as documented Psychiatric Psychiatric: Reports system reviewed and no additional complaints, except as documented Endocrine Endocrine: Reports system reviewed and no additional complaints, except as documented and Reports palpitations Hematologic/Lymphatic Hematologic/Lymphatic: Reports system reviewed and no additional complaints, except as documented Allergic/Immunologic Allergic/Immunologic: Reports system reviewed and no additional complaints, except as documented Exam Data for Last 24 hours Vital signs and Labs for Last 24 Hours: Temp Pulse Resp BP Pulse Ox O2 Del Method 97.9 F 65 22 145/82 H 100 Room Air 03/11/25 12:00 03/11/25 12:00 03/11/25 12:00 03/11/25 12:00 03/11/25 12:00 03/11/25 12:00 Laboratory Results - last 24 hr 03/09/25 20:41: Urine Color Yellow, Urine Appearance Clear, Urine pH 6.5, Ur Specific [place] <= 1.005, Urine Protein Negative, Urine Glucose (UA) Negative, Urine Ketones Negative, Urine Blood Negative, Urine Nitrate Negative, Urine Bilirubin Negative, Urine Urobilinogen 0.2, Ur Leukocyte Esterase Negative, Urine RBC None, Urine WBC 5-10, Ur Squamous Epith Cells 3-5, Urine Bacteria 4+, Urine Opiates Screen Negative, Urine Methadone Screen Negative, Ur Barbituates Screen Negative, Ur Phencyclidine Scrn Negative, Ur Amphetamines Screen Negative, U Benzodiazepines Scrn Negative, Urine Cocaine Screen Negative, U Marijuana (THC) Screen Negative 03/11/25 09:15: WBC 5.2 D, RBC 3.90 L, Hgb 11.7 L, Hct 36.3 L, MCV 93.1, MCH 30.0, MCHC 32.2, RDW 16.0, Plt Count 292, MPV 9.5, Neut % (Auto) 50.8, Lymph % (Auto) 40.6, [place] % (Auto) 7.0, Eos % (Auto) 1.2, Baso % (Auto) 0.2, Neut # (Auto) 2.6, Lymph # (Auto) 2.1, [place] # (Auto) 0.4, Eos # (Auto) 0.1, Baso # (Auto) 0.0, Sodium 135 L, Potassium 3.9, Chloride 102, Carbon Dioxide 23, Anion Gap 13.9, BUN 9, Creatinine 0.70, Estimated Creat Clear 100, Estimated GFR 88, Est GFR ( Amer) 106, Glucose 97, Calcium 9.4, Total Bilirubin 1.0, AST 71 H D, ALT 32, Alkaline Phosphatase 134 H, Total Protein 7.8, Albumin 4.6, Globulin 3.2, Albumin/Globulin Ratio 1.4, Free T4 1.46 I & O for Last 24 hours: Intake & Output 03/08/25 03/09/25 03/10/25 03/11/25 23:59 23:59 23:59 23:59 Intake Total 560 / 740 180 / 180 Output Total 1001 / 1001 0 / 0 Balance -441 / -261 180 / 180 Weight 135 lb 142 lb 149 lb 9.6 oz Microbiology Reports for the Last 24 Hours: Microbiology 03/09/25 20:41 Urine,Clean Catch Urine Culture - Preliminary Gram Negative Rods Constitutional Constitutional: no acute distress and average body habitus *Routine HEENT Exam Head: Present normocephalic and atraumatic ENT: Present mucous membranes moist *Routine Neck Exam Neck: Present supple, full ROM and normal carotid upstroke; Absent JVD, carotid bruit or lymphadenopathy *Routine Respiratory Exam Respiratory: Present CTA bilaterally, normal respiratory effort, able to speak in complete sentences and symmetric chest movement *Routine Cardiovascular Exam Cardiovascular: Present RRR, Normal S1 and Normal S2; Absent murmur or gallop *Routine Abdominal Exam Abdominal: Present soft and normoactive bowel sounds; Absent tenderness, distended or organomegaly *Routine Extremities Exam Extremities: Present full ROM, pulses intact and normal capillary refill; Absent cyanosis, clubbing or edema *Routine Skin Exam Skin: Present intact and warm; Absent erythema *Routine Neurological Exam Neurological: Present alert, oriented X3 and CN II-XII intact; Absent sensory deficit or motor deficit Routine Psychiatric Exam Psychiatric: Present normal affect Meds Home Medications and Allergies Home Medications ?Medication ?Instructions ?Recorded ?Confirmed ?Type promethazine 25 mg tablet 25 mg PO BIDP PRN Nausea And 07/24/24 03/10/25 History Vomiting albuterol sulfate 90 mcg/actuation 1 inh inhalation Q6HP PRN 11/22/24 03/10/25 History aerosol inhaler Shortness Of Breath omeprazole 40 mg capsule,delayed 40 mg PO DAILY #90 caps 01/07/25 03/10/25 Rx release albuterol sulfate 2.5 mg/3 mL 5 mg inhalation Q6HP PRN Shortness 03/10/25 03/10/25 History (0.083 %) solution for nebulization Of Breath Or Wheezing benzonatate 100 mg capsule 100 mg PO TIDP PRN Cough 03/10/25 03/10/25 History clonazepam 0.5 mg tablet (Klonopin) 0.5 mg PO BIDP PRN Anxiety 03/10/25 03/10/25 History fenofibrate nanocrystallized 145 145 mg PO DAILY 03/10/25 03/10/25 History mg tablet fluticasone propionate 50 1 spray intranasal BID 03/10/25 03/10/25 History mcg/actuation nasal spray,suspension hydrocodone 10 mg-acetaminophen 1 tab PO Q8HP PRN Severe Pain 03/10/25 03/10/25 History 325 mg tablet (Scale Score 7-10) hydrocortisone-aloe vera 1 % 1 applic topical TIDP PRN skin 03/10/25 03/10/25 History topical cream (Anti-Itch irritation (hydrocortisone) with Aloe) levothyroxine 25 mcg tablet 25 mcg PO DAILYDM 03/10/25 03/10/25 History loperamide 2 mg capsule 6 mg PO BIDP PRN Diarrhea 03/10/25 03/10/25 History meloxicam 7.5 mg tablet 7.5 mg PO BID 03/10/25 03/10/25 History umeclidinium 62.5 mcg-vilanterol 1 inh inhalation DAILY 03/10/25 03/10/25 History 25 mcg/actuation powdr for inhalation (Anoro Ellipta) New Prescriptions to Start Prescriptions: Allergies Allergy/AdvReac Type Severity Reaction Status Date / Time lidocaine Allergy Intermediate Red, Rash, Verified 02/27/25 09:50 Itching codeine (CODEINE) Allergy Unknown VOMITING Verified 02/27/25 09:50 erythromycin base Allergy Unknown ITCHING/HIV Verified 02/27/25 09:50 (ERYTHROMYCIN BASE) ES Penicillins (PENICILLINS) Allergy Unknown VOMITING Verified 02/27/25 09:50 ibuprofen Allergy Hives Verified 02/27/25 09:50 Iodinated Contrast Media Allergy Anaphylaxis Verified 03/11/25 14:21 tramadol AdvReac Hives Verified 02/27/25 09:50 Assessment and Plan *Assessment and plan (1) Chest pain: Status: Acute Qualifiers: Chest pain type: other chest pain Qualified Code(s): R07.89 - Other chest pain Category: Medical Code(s): R07.9 - Chest pain, unspecified (2) Anxiety disorder: Status: Acute Qualifiers: Anxiety disorder type: unspecified anxiety disorder Qualified Code(s): F41.9 - Anxiety disorder, unspecified Category: Medical Code(s): F41.9 - Anxiety disorder, unspecified (3) Hyperlipidemia: Status: Acute Qualifiers: Hyperlipidemia type: mixed hyperlipidemia Qualified Code(s): E78.2 - Mixed hyperlipidemia Category: Medical Code(s): E78.5 - Hyperlipidemia, unspecified Plan Plan: 1. The patient was admitted to the hospital with chest pain. She was found to have unstable angina and admitted to the hospital. She ruled out for CA. Will plan to proceed with CCTA today to evaluate her coronary arteries due to her continued chest pain. 2. Will obtain an echocardiogram to evaluate her LV function due to her chest pain and shortness of breath. 3. Her blood pressure is well-controlled. 4. Her LDL goal is less than 100. Her LDL is 73. She reports she has a history of hyperlipidemia but is no longer on medications because her levels improved. 5. The patient does have a history of significant anxiety. Will defer management of this to her the hospitalist. 6. Further recommendations will be made pending the patient's response to treatment and the results of her echocardiogram and CCTA today. If CCTA is normal then the patient can be discharged home. If the CCTA shows mild to moderate nonocclusive disease then consider aspirin, statin and beta-parmjit. If the CCTA is abnormal with significant plaque then the patient will need to stay for cardiac catheterization tomorrow. Thank you for the opportunity to help dissipate in the care of this patient. All recommendations and orders are per Dr. Todd. Addendum: The patient had multiple doses of IV and oral metoprolol, ivabradine and diltiazem prior to going down for CCTA. Once her heart rate did get down to the low 60s she was taken down to have the CCTA at which time she reported that she was allergic to contrast so the test had to be postponed. Following this the rapid response was called because the patient became bradycardic with a heart rate in the 30s. She was given multiple doses of atropine and she was also given glucagon. Her heart rate came up to the 50s. Heart rate now in the 70s CCTA has been canceled due to her bradycardia and rapid response. Will plan to proceed with left cardiac catheterization tomorrow due to her chest pain and unstable angina. The patient has been educated the risk and benefits of proceeding with left cardiac catheterization. She verbalized understanding and is agreeable in proceeding with the procedure. The patient will be n.p.o. after midnight. Will give the patient Solu-Medrol 125 mg IV every 8 hours until her left cardiac catheterization tomorrow. Once she is in the [facility] we will also give her IV Benadryl and IV Pepcid prior to the procedure.
--- NOTE | 2025-03-11 13:21 | ECG_ITS ---
APPROVED REPORT Exam: Resting ECG HR:44 bpm ECG Measurements Heart Rate 44 AXES MD 185 P 8 QRSd 89 QRS 29 QT 529 T 41 QTc 478 Conclusion SINUS BRADYCARDIA PROLONGED QT INTERVAL ABNORMAL ECG UNCONFIRMED REPORT Electronically signed by : Xavier Rivas MD 03/12/2025 08:22:30
--- NOTE | 2025-03-11 13:24 | ECG_ITS ---
APPROVED REPORT Exam: Resting ECG HR:51 bpm ECG Measurements Heart Rate 51 AXES VT 192 P 46 QRSd 92 QRS 34 QT 494 T 39 QTc 470 Conclusion SINUS BRADYCARDIA BORDERLINE ECG UNCONFIRMED REPORT Electronically signed by : Xavier Rivas MD 03/12/2025 08:22:23
--- NOTE | 2025-03-11 13:24 | HMH.ITSTN ---
RN Vicki brought patient down to CT for her CTA Coronary exam. When this stock grader asked patient if she has had CT contrast before patient stated that she was allergic to the contrast. Patient said the contrast makes her swell up, she gets hives, and her throat closes and she cannot breathe. This stock grader helped the RN take the patient back upstairs to her room.
[2025-03-11 14:04] LABS: Anion Gap 12.4 mEq/L (5-15); Blood Urea Nitrogen 8 mg/dl (7-17); Calcium 8.1 mg/dl (8.4-10.2); Carbon Dioxide 19 mmol/L (22.0-30.0); Chloride 99 mmol/L (98-107); Creatinine Clearance Estimated 116 mL/min (50-200); Creatinine,Serum 0.60 mg/dl (0.52-1.04); Estimated Glomerular Filt Rate 105 ml/min (>60); GFR (African American) 127 ML/MIN (>60); Glucose 137 mg/dl (74-100); Potassium 3.4 mmoL/L (3.5-5.1); Sodium 127 mmol/L (136-145)
[2025-03-11 14:21] LABS: Troponin I < 0.01 ng/ml (0.00-0.034)
[2025-03-11] MEDS: METHYLPREDNISOLONE SOD SUCC 125MG VIAL 125 MG IV ×2 (16:04→23:45)
--- NOTE | 2025-03-11 16:38 | PC.NURSE ---
Patient is alert and oriented. Patient reports feeling tired. Patient lung sounds are clear throughout bilaterally. Bowel sounds are active. IV's are patent.
[2025-03-11] MEDS: PANTOPRAZOLE 40MG TABLET 40 MG PO (21:27)
--- NOTE | 2025-03-11 22:57 | EXP.PN ---
Subjective *Date: 03/11/25 *Time: 22:57 Interval history: Cardiogenic shock after receiving AV satish medications for CCTA today, improved with atropine and glucagon. Much more stable this afternoon. Cardiology planning for [facility] in the morning. Exam Data for Last 24 hours Vital signs and Labs for Last 24 Hours: Temp Pulse Resp BP Pulse Ox O2 Del Method 98.2 F 71 18 128/76 98 Room Air 03/11/25 20:00 03/11/25 20:00 03/11/25 20:00 03/11/25 20:00 03/11/25 20:00 03/11/25 20:00 Laboratory Results - last 24 hr 03/09/25 20:41: Urine Color Yellow, Urine Appearance Clear, Urine pH 6.5, Ur Specific [place] <= 1.005, Urine Protein Negative, Urine Glucose (UA) Negative, Urine Ketones Negative, Urine Blood Negative, Urine Nitrate Negative, Urine Bilirubin Negative, Urine Urobilinogen 0.2, Ur Leukocyte Esterase Negative, Urine RBC None, Urine WBC 5-10, Ur Squamous Epith Cells 3-5, Urine Bacteria 4+, Urine Opiates Screen Negative, Urine Methadone Screen Negative, Ur Barbituates Screen Negative, Ur Phencyclidine Scrn Negative, Ur Amphetamines Screen Negative, U Benzodiazepines Scrn Negative, Urine Cocaine Screen Negative, U Marijuana (THC) Screen Negative 03/11/25 09:15: WBC 5.2 D, RBC 3.90 L, Hgb 11.7 L, Hct 36.3 L, MCV 93.1, MCH 30.0, MCHC 32.2, RDW 16.0, Plt Count 292, MPV 9.5, Neut % (Auto) 50.8, Lymph % (Auto) 40.6, [place] % (Auto) 7.0, Eos % (Auto) 1.2, Baso % (Auto) 0.2, Neut # (Auto) 2.6, Lymph # (Auto) 2.1, [place] # (Auto) 0.4, Eos # (Auto) 0.1, Baso # (Auto) 0.0, Sodium 135 L, Potassium 3.9, Chloride 102, Carbon Dioxide 23, Anion Gap 13.9, BUN 9, Creatinine 0.70, Estimated Creat Clear 100, Estimated GFR 88, Est GFR ( Amer) 106, Glucose 97, Calcium 9.4, Total Bilirubin 1.0, AST 71 H D, ALT 32, Alkaline Phosphatase 134 H, Total Protein 7.8, Albumin 4.6, Globulin 3.2, Albumin/Globulin Ratio 1.4, Free T4 1.46 03/11/25 13:35: Sodium 127 L, Potassium 3.4 L, Chloride 99, Carbon Dioxide 19 L, Anion Gap 12.4, BUN 8, Creatinine 0.60, Estimated Creat Clear 116, Estimated GFR 105, Est GFR ( Amer) 127, Glucose 137 H D, Calcium 8.1 L, Troponin I < 0.01 Temp Pulse Resp BP Pulse Ox O2 Del Method 97.9 F 65 22 145/82 H 100 Room Air 03/11/25 12:00 03/11/25 12:00 03/11/25 12:00 03/11/25 12:00 03/11/25 12:00 03/11/25 12:00 Laboratory Results - last 24 hr 03/09/25 20:41: Urine Color Yellow, Urine Appearance Clear, Urine pH 6.5, Ur Specific [place] <= 1.005, Urine Protein Negative, Urine Glucose (UA) Negative, Urine Ketones Negative, Urine Blood Negative, Urine Nitrate Negative, Urine Bilirubin Negative, Urine Urobilinogen 0.2, Ur Leukocyte Esterase Negative, Urine RBC None, Urine WBC 5-10, Ur Squamous Epith Cells 3-5, Urine Bacteria 4+, Urine Opiates Screen Negative, Urine Methadone Screen Negative, Ur Barbituates Screen Negative, Ur Phencyclidine Scrn Negative, Ur Amphetamines Screen Negative, U Benzodiazepines Scrn Negative, Urine Cocaine Screen Negative, U Marijuana (THC) Screen Negative 03/11/25 09:15: WBC 5.2 D, RBC 3.90 L, Hgb 11.7 L, Hct 36.3 L, MCV 93.1, MCH 30.0, MCHC 32.2, RDW 16.0, Plt Count 292, MPV 9.5, Neut % (Auto) 50.8, Lymph % (Auto) 40.6, [place] % (Auto) 7.0, Eos % (Auto) 1.2, Baso % (Auto) 0.2, Neut # (Auto) 2.6, Lymph # (Auto) 2.1, [place] # (Auto) 0.4, Eos # (Auto) 0.1, Baso # (Auto) 0.0, Sodium 135 L, Potassium 3.9, Chloride 102, Carbon Dioxide 23, Anion Gap 13.9, BUN 9, Creatinine 0.70, Estimated Creat Clear 100, Estimated GFR 88, Est GFR ( Amer) 106, Glucose 97, Calcium 9.4, Total Bilirubin 1.0, AST 71 H D, ALT 32, Alkaline Phosphatase 134 H, Total Protein 7.8, Albumin 4.6, Globulin 3.2, Albumin/Globulin Ratio 1.4, Free T4 1.46 I & O for Last 24 hours: Intake & Output 03/08/25 03/09/25 03/10/25 03/11/25 23:59 23:59 23:59 23:59 Intake Total 560 / 740 180 / 180 Output Total 1001 / 1001 0 / 0 Balance -441 / -261 180 / 180 Weight 61.235 kg 64.41 kg 67.857 kg Intake & Output 03/08/25 03/09/25 03/10/25 03/11/25 23:59 23:59 23:59 23:59 Intake Total 560 / 740 180 / 180 Output Total 1001 / 1001 0 / 0 Balance -441 / -261 180 / 180 Weight 135 lb 142 lb 149 lb 9.6 oz Microbiology Reports for the Last 24 Hours: Microbiology 03/09/25 20:41 Urine,Clean Catch Urine Culture - Preliminary Gram Negative Rods Microbiology 03/09/25 20:41 Urine,Clean Catch Urine Culture - Preliminary Gram Negative Rods Constitutional Constitutional: no acute distress and average body habitus *Routine HEENT Exam Head: Present normocephalic and atraumatic ENT: Present mucous membranes moist *Routine Neck Exam Neck: Present supple, full ROM and normal carotid upstroke; Absent JVD, carotid bruit or lymphadenopathy *Routine Respiratory Exam Respiratory: Present CTA bilaterally, normal respiratory effort, able to speak in complete sentences and symmetric chest movement *Routine Cardiovascular Exam Cardiovascular: Present RRR, Normal S1 and Normal S2; Absent murmur or gallop *Routine Abdominal Exam Abdominal: Present soft and normoactive bowel sounds; Absent tenderness, distended or organomegaly *Routine Extremities Exam Extremities: Present full ROM, pulses intact and normal capillary refill; Absent cyanosis, clubbing or edema *Routine Skin Exam Skin: Present intact and warm; Absent erythema *Routine Neurological Exam Neurological: Present alert, oriented X3 and CN II-XII intact; Absent sensory deficit or motor deficit Routine Psychiatric Exam Psychiatric: Present normal affect Assessment and Plan *Assessment and plan (1) Anxiety disorder: Status: Acute Qualifiers: Anxiety disorder type: unspecified anxiety disorder Qualified Code(s): F41.9 - Anxiety disorder, unspecified Category: Medical Code(s): F41.9 - Anxiety disorder, unspecified (2) Unstable angina: Status: Acute Category: Medical Code(s): I20.0 - Unstable angina Plan Tonya Kamara is a 54-year-old female who presented with chest pain with left arm radiation and was admitted for unstable angina. #Unstable angina #Secondhand smoking ? Continues to have intermittent midsternal chest pain with left-sided radiation. Troponins, EKG have been unremarkable. ? Cardiology consulted, planned to do CCTA today. However, patient became bradycardic and went into transient cardiogenic shock after prepping heart rate for CCTA with IV Lopressor, ivabradine, diltiazem. Improved with multiple atropine, glucagon. HR in the 70s, BP 128/76. ? Of note, patient states she is allergic to contrast after prepping for CCTA. Cardiology planning for [facility] in the morning with Solu-Medrol prophylaxis prior to procedure. ? A1c 5.3, LDL 73, TSH 7.13 but free T4 normal. Will need repeat TFTs outpatient. ? Continue aspirin 81 mg, atorvastatin 80 mg, continue metoprolol succinate after cardiogenic shock this morning. ? Follow-up ECHO report. #Anxiety, controlled ? Continue home Klonopin 0.5 mg twice daily as needed. ? Consider starting SSRI/SNRI once patient is more stable. #COPD ? Continue home Anoro Ellipta daily. On room air. Stable. #Chronic pain syndrome ? Continue home [place]. Full code DVT prophylaxis: Lovenox 40 mg
[2025-03-12] VITALS: BP 133/78; PULSE 75; PULSE 80; RESP 15; TEMP 36.8; O2SAT 92
[2025-03-12 04:00] VITALS: BP 147/66; PULSE 80; PULSE 85; RESP 20; TEMP 36.7; O2SAT 95; BMI 23.0
[2025-03-12] MEDS: ONDANSETRON 4MG/2ML VIAL 4 MG IV (05:44)
[2025-03-12] MEDS: UMECLIDINIUM/VILANTEROL 62.5/25MCG INHALER 1 PUFF IH (06:15)
[2025-03-12] MEDS: HYDROCODONE/APAP 5/325 MG TABLET 2 TAB PO (06:34)
[2025-03-12] MEDS: METHYLPREDNISOLONE SOD SUCC 125MG VIAL 125 MG IV (06:34)
[2025-03-12] MEDS: LEVOTHYROXINE 25MCG (0.025MG) TAB 25 MCG PO (06:35)
[2025-03-12 08:00] VITALS: BP 164/97; PULSE 87; RESP 18; TEMP 36.4; O2SAT 97
[2025-03-12 08:05] VITALS: PULSE 90
[2025-03-12] MEDS: DOCUSATE SODIUM 100 MG CAPSULE PO (08:33)
[2025-03-12] MEDS: ASPIRIN EC 81MG TABLET 81 MG PO (08:33)
[2025-03-12] MEDS: BENZONATATE 100MG CAPSULE 200 MG PO (08:34)
[2025-03-12 10:01] LABS: Hematocrit 32.4 % (37.0-47.0); Hemoglobin 10.8 g/dL (12.2-16.2); Immature Granulocytes % 0.2 %; Mean Corpuscular HGB Conc 33.3 g/dL (31.8-35.4); Mean Corpuscular Hemoglobin 30.3 pg (27.0-31.2); Mean Corpuscular Volume 91.0 fl (81-99); Nucleated Red Blood Cells % 0 %; Platelet Count 279 K/mm3 (142-424); Red Blood Count 3.56 M/mm3 (4.20-5.40); Red Cell Distribution Width-SD 51.4 fL; White Blood Count 4.7 K/mm3 (4.8-10.8)
--- NOTE | 2025-03-12 10:58 | EXP.DC.SUM ---
General Admission date:: 03/10/25 Discharge date: 03/12/25 HPI HPI HPI: This is a 54-year-old female that presents to [facility] emergency department with concerns of chest pain. She is accompanied by her significant other and I am accompanied by her nurses Autumn and Andria. She describes a centrally located chest pain that started earlier today. She characterizes her pain as sharp and radiates to her neck and shoulders. It is rated as a 6 out of 10. She denies associated retro-sternal chest pain, dyspnea, palpitations, confusion or diaphoresis. She has experienced no associated nausea and vomiting but does endorse reflux symptoms. She reports previous GI evaluations and endoscopies. Her past medical history is significant for degenerative disc disease of her cervical spine with previous surgery and chronically prescribed opioid therapy. She reports a surgeon told her she needed to undergo a breast reduction. She reports a significant history of anxiety with previous behavioral medicine evaluations and chronically prescribed benzodiazepine therapy. In the ED her ECG identified no acute changes and her troponins were negative x 2. Hospital medicine was asked to admit the patient for observation concerning her social determinants of health (she lives alone) and anxiety reported in the ED. Hospital Course Hospital Course Hospital Course: Tonya Kamara is a 54-year-old female who presented with chest pain with left arm radiation and was admitted for unstable angina. Cardiology was consulted. Recommendation made for left heart cath. Patient was anxious during admission, stated she could not stay in the hospital for intervention as she needed to follow-up with preoperative assessment for neck surgery. Informed her that given her symptoms, it would likely be recommended that her cardiac symptoms be addressed prior to proceeding with surgery. She elected to proceed with left heart cath consideration as an outpatient and did not want to stay. She was discharged in stable condition with no elevation in troponins during admission. Further workup recommended with close follow-up. Problems addressed as follows: #Unstable angina #Secondhand smoking ? Presented with intermittent midsternal chest pain and left-sided radiation. Serial troponins were unremarkable. EKG did not show any ST elevations. Cardiology was consulted and attempted to do CCTA on 03/11. However, patient became bradycardic and went into transient cardiogenic shock after prepping heart rate for CCTA with IV Lopressor, ivabradine, diltiazem. Improved with multiple doses of atropine, glucagon. Heart rates stabilized in the 70s to 80s. Blood pressure improved and remained fairly well-controlled during remainder of admission. Of note, patient states she is allergic to contrast after prepping for CCTA. Plan was to proceed with left heart cath. Patient pretreated with Solu-Medrol prophylaxis. After much discussion, patient states that she does not want to proceed with a left heart cath as she has to leave to make a doctor's appointment in [place] for preoperative evaluation for consideration of neck surgery. Informed her that they would want cardiac clearance, she states she cannot state to proceed with any intervention and decision was made mutually to discharge patient at her request as there is no other need for continued admission if she did not want to proceed with left heart cath. - Plan to have patient follow-up in the very near future for discussion of outpatient heart cath. Continue aspirin 81 mg daily, Lipitor 80 mg nightly. Hold on metoprolol succinate after her bradycardic/cardiogenic shock event. Patient hemodynamically stable at discharge. No further signs of cardiogenic shock clinically. ? A1c 5.3, LDL 73, TSH 7.13 but free T4 normal. Will need repeat TFTs outpatient. - Echocardiogram shows a normal ejection fraction. #Anxiety, controlled ? Continue home Klonopin 0.5 mg twice daily as needed. Would benefit from consideration of SSRI/SNRI as an outpatient. #COPD ? Continue home Anoro Ellipta daily. On room air. Stable. #Chronic pain syndrome ? Continue home [place]. Exam Data for Last 24 hours Vital signs and Labs for Last 24 Hours: Temp Pulse Resp BP Pulse Ox O2 Del Method 97.6 F 90 18 164/97 H 97 Room Air 03/12/25 08:00 03/12/25 08:05 03/12/25 08:00 03/12/25 08:00 03/12/25 08:00 03/12/25 10:27 Laboratory Results - last 24 hr 03/11/25 13:35: Sodium 127 L, Potassium 3.4 L, Chloride 99, Carbon Dioxide 19 L, Anion Gap 12.4, BUN 8, Creatinine 0.60, Estimated Creat Clear 116, Estimated GFR 105, Est GFR ( Amer) 127, Glucose 137 H D, Calcium 8.1 L, Troponin I < 0.01 03/12/25 09:40: WBC 4.7 L, RBC 3.56 L, Hgb 10.8 L, Hct 32.4 L, MCV 91.0, MCH 30.3, MCHC 33.3, RDW 15.6, Plt Count 279, MPV 9.7, Neut % (Auto) 80.8 H, Lymph % (Auto) 18.6, [place] % (Auto) 0.4 L, Eos % (Auto) 0.0 L, Baso % (Auto) 0.0 L, Neut # (Auto) 3.8, Lymph # (Auto) 0.9, [place] # (Auto) 0.0 L, Eos # (Auto) 0.0, Baso # (Auto) 0.0 I & O for Last 24 hours: Intake & Output 03/09/25 03/10/25 03/11/25 03/12/25 23:59 23:59 23:59 23:59 Intake Total 560 / 740 180 / 180 Output Total 1001 / 1001 0 / 0 0 / 0 Balance -441 / -261 180 / 180 0 / 0 Weight 61.235 kg 64.41 kg 67.857 kg 61.235 kg Microbiology Reports for the Last 24 Hours: Microbiology 03/09/25 20:41 Urine,Clean Catch Urine Culture - Final Escherichia coli Constitutional Constitutional: no acute distress, average body habitus, chronically ill appearing and cooperative *Routine HEENT Exam Head: Present normocephalic and atraumatic Eye: Present EOMI ENT: Present mucous membranes moist Comments: dip in mouth *Routine Neck Exam Neck: Present supple, full ROM and normal carotid upstroke; Absent JVD, carotid bruit, lymphadenopathy or tenderness *Routine Respiratory Exam Respiratory: Present CTA bilaterally, normal respiratory effort, able to speak in complete sentences and symmetric chest movement; Absent accessory muscle use *Routine Cardiovascular Exam Cardiovascular: Present RRR, Normal S1 and Normal S2; Absent murmur or gallop *Routine Abdominal Exam Abdominal: Present soft and normoactive bowel sounds; Absent tenderness, distended or organomegaly *Routine Rectal Exam Patient deferred: visual exam *Routine Exam Patient deferred: external exam *Routine Extremities Exam Extremities: Present full ROM, pulses intact and normal capillary refill; Absent cyanosis, clubbing or edema *Routine Skin Exam Skin: Present intact and warm; Absent erythema *Routine Neurological Exam Neurological: Present alert, oriented X3, CN II-XII intact and moving all extremities; Absent sensory deficit, motor deficit or altered mental status Routine Psychiatric Exam Psychiatric: Present normal affect and anxious; Absent good insight Results Data Completed and Pending Labs on day of discharge: Labs from last 24 hours 03/12/25 03/11/25 09:40 13:35 WBC 4.7 L RBC 3.56 L Hgb 10.8 L Hct 32.4 L MCV 91.0 MCH 30.3 MCHC 33.3 RDW 15.6 Plt Count 279 MPV 9.7 Neut % (Auto) 80.8 H Lymph % (Auto) 18.6 [place] % (Auto) 0.4 L Eos % (Auto) 0.0 L Baso % (Auto) 0.0 L Neut # (Auto) 3.8 Lymph # (Auto) 0.9 [place] # (Auto) 0.0 L Eos # (Auto) 0.0 Baso # (Auto) 0.0 Sodium 127 L Potassium 3.4 L Chloride 99 Carbon Dioxide 19 L Anion Gap 12.4 BUN 8 Creatinine 0.60 Estimated Creat Clear 116 Estimated GFR 105 Est GFR ( Amer) 127 Glucose 137 H D Calcium 8.1 L Troponin I < 0.01 DS: Diagnosis Discharge Diagnosis (1) Anxiety disorder: Status: Acute Code(s): F41.9 - Anxiety disorder, unspecified Qualifiers: Anxiety disorder type: unspecified anxiety disorder Qualified Code(s): F41.9 - Anxiety disorder, unspecified (2) Unstable angina: Status: Acute Code(s): I20.0 - Unstable angina (3) Hyperlipidemia: Status: Acute Code(s): E78.5 - Hyperlipidemia, unspecified Qualifiers: Hyperlipidemia type: mixed hyperlipidemia Qualified Code(s): E78.2 - Mixed hyperlipidemia (4) Asthma: Status: Chronic Code(s): J45.909 - Unspecified asthma, uncomplicated (5) Chronic pain: Status: Acute Code(s): G89.29 - Other chronic pain Qualifiers: Chronic pain type: other chronic pain Qualified Code(s): G89.29 - Other chronic pain (6) Cervical radiculopathy: Status: Chronic Code(s): M54.12 - Radiculopathy, cervical region Meds Home Medications and Allergies Home Medications ?Medication ?Instructions ?Recorded ?Confirmed ?Type promethazine 25 mg tablet 25 mg PO BIDP PRN Nausea And 07/24/24 03/10/25 History Vomiting albuterol sulfate 90 mcg/actuation 1 inh inhalation Q6HP PRN 11/22/24 03/10/25 History aerosol inhaler Shortness Of Breath omeprazole 40 mg capsule,delayed 40 mg PO DAILY #90 caps 01/07/25 03/10/25 Rx release albuterol sulfate 2.5 mg/3 mL 5 mg inhalation Q6HP PRN Shortness 03/10/25 03/10/25 History (0.083 %) solution for nebulization Of Breath Or Wheezing benzonatate 100 mg capsule 100 mg PO TIDP PRN Cough 03/10/25 03/10/25 History clonazepam 0.5 mg tablet (Klonopin) 0.5 mg PO BIDP PRN Anxiety 03/10/25 03/10/25 History fenofibrate nanocrystallized 145 145 mg PO DAILY 03/10/25 03/10/25 History mg tablet fluticasone propionate 50 1 spray intranasal BID 03/10/25 03/10/25 History mcg/actuation nasal spray,suspension hydrocodone 10 mg-acetaminophen 1 tab PO Q8HP PRN Severe Pain 03/10/25 03/10/25 History 325 mg tablet (Scale Score 7-10) hydrocortisone-aloe vera 1 % 1 applic topical TIDP PRN skin 03/10/25 03/10/25 History topical cream (Anti-Itch irritation (hydrocortisone) with Aloe) levothyroxine 25 mcg tablet 25 mcg PO DAILYDM 03/10/25 03/10/25 History loperamide 2 mg capsule 6 mg PO BIDP PRN Diarrhea 03/10/25 03/10/25 History meloxicam 7.5 mg tablet 7.5 mg PO BID 03/10/25 03/10/25 History umeclidinium 62.5 mcg-vilanterol 1 inh inhalation DAILY 03/10/25 03/10/25 History 25 mcg/actuation powdr for inhalation (Anoro Ellipta) aspirin 81 mg tablet,delayed 81 mg PO DAILY 30 days #30 tabs 03/12/25 Rx release atorvastatin 40 mg tablet 80 mg (2 x 40 mg) PO HS 30 days 03/12/25 Rx #60 tabs New Prescriptions to Start Prescriptions: Robson Cruz atorvastatin Robson Lucero Allergies Allergy/AdvReac Type Severity Reaction Status Date / Time lidocaine Allergy Intermediate Red, Rash, Verified 02/27/25 09:50 Itching codeine (CODEINE) Allergy Unknown VOMITING Verified 02/27/25 09:50 erythromycin base Allergy Unknown ITCHING/HIV Verified 02/27/25 09:50 (ERYTHROMYCIN BASE) ES Penicillins (PENICILLINS) Allergy Unknown VOMITING Verified 02/27/25 09:50 ibuprofen Allergy Hives Verified 02/27/25 09:50 Iodinated Contrast Media Allergy Anaphylaxis Verified 03/11/25 14:21 tramadol AdvReac Hives Verified 02/27/25 09:50 Discharge Plan Disposition Patient Disposition: Home, Self-Care Condition: Undetermined Follow up Plan Follow up with: Daniela Buitrago APRN [Nurse Practitioner, Cardiology] - 03/21/25 2:15 pm Eric Peace DO [Primary Care Provider, Family Practice] - 03/27/25 9:30 am Prescriptions/Medication Reconciliation: New atorvastatin 40 mg Tablet 80 mg PO HS 30 Days Qty: 60 0RF aspirin 81 mg Tablet,Delayed Release (Dr/Ec) 81 mg PO DAILY 30 Days Qty: 30 0RF Continued albuterol sulfate 90 mcg/actuation HFA aerosol inhaler 1 inh inhalation Q6HP PRN (Reason: Shortness Of Breath) omeprazole 40 mg capsule,delayed release(DR/EC) 40 mg PO DAILY Qty: 90 1RF promethazine 25 mg tablet 25 mg PO BIDP PRN (Reason: Nausea And Vomiting) benzonatate 100 mg capsule 100 mg PO TIDP PRN (Reason: Cough) Rx Instructions: TAKE 1 CAPSULE BY MOUTH 3 TIMES A DAY NEEDED FOR COUGH albuterol sulfate 2.5 mg /3 mL (0.083 %) solution for nebulization 5 mg inhalation Q6HP PRN (Reason: Shortness Of Breath Or Wheezing) Patient Comments: INHALE CONTENTS OF 2 VIALS VIA NEBULIZER EVERY 6 HOURS NEEDED FOR SHORTNESS OF BREATH OR WHEEZING umeclidinium-vilanterol [Anoro Ellipta] 62.5-25 mcg/actuation blister with device 1 inh INHALATION DAILY Patient Comments: INHALE 1 PUFF BY MOUTH ONCE A DAY meloxicam 7.5 mg tablet 7.5 mg PO BID Patient Comments: TAKE 1 TABLET BY MOUTH 2 TIMES A DAY fenofibrate nanocrystallized 145 mg tablet 145 mg PO DAILY Patient Comments: TAKE ONE TABLET BY MOUTH ONCE A DAY loperamide 2 mg capsule 6 mg PO BIDP PRN (Reason: Diarrhea) clonazepam [Klonopin] 0.5 mg tablet 0.5 mg PO BIDP PRN (Reason: Anxiety) hydrocodone-acetaminophen 10-325 mg tablet 1 tab PO Q8HP PRN (Reason: Severe Pain (Scale Score 7-10)) levothyroxine 25 mcg tablet 25 mcg PO DAILYDM Rx Instructions: TAKE ONE TABLET BY MOUTH ONCE A DAY FOR THYROID hydrocortisone-aloe vera [Anti-Itch(hydrocortisone)-Aloe] 1 % cream 1 applic topical TIDP PRN (Reason: skin irritation) fluticasone propionate 50 mcg/actuation spray,suspension 1 spray INTRANASAL BID Problem Reconciliation Problems Reviewed?: Yes Patient Discharge Instructions ACTIVITY: Continue current activity DIET: continue same diet Patient Instructions: Angina Print Language: Chinese Providers Primary Care Provider: Eric Peace Admit Provider: Brant Rangel Attending Provider: Brant Rangel
--- NOTE | 2025-03-12 11:05 | PC.NURSE ---
patient is persistently refusing scheduled heart cath for today, states she has an appointment in [place] that she cannot miss, recommended that patient stay for procedure but patient continues to refuse and states she will do it as an outpatient procedure. aware.
[2025-03-12] MEDS: POTASSIUM CHLORIDE 20MEQ TAB 40 MEQ PO (11:14)
[2025-03-12] MEDS: HYDROCODONE/APAP 5/325 MG TABLET 1 TAB PO (11:21)
--- NOTE | 2025-03-12 12:53 | EXP.CARD.PN ---
Subjective Subjective Date: 03/12/25 Time: 11:00 Principal diagnosis: Chest pain Interval history: This is a 54-year-old white female who presented to the emergency department with complaints of chest pain. She states that she has still been having the chest pain intermittently. She rates this a 6 out of 10 in intensity. This is a sharp pain in the central aspect of her chest that radiates to the neck and bilateral shoulders. It is associated with shortness of breath and she complains of reflux as well. The patient was scheduled to undergo CCTA yesterday but had a contrast allergy and then got significantly bradycardic with all of the premedications prior to the CCTA. Her CCTA was canceled and she was set up for left cardiac catheterization today. However, this morning she realized that she has an appointment in [place] at [facility] that she cannot miss due to a plate in her neck that has shifted. She states that if she does not go to this appointment they will discharge her from the practice and she needs to have this evaluated because if it moves anymore then she will be paralyzed. The patient states that she is leaving the hospital today and she will come back later as an outpatient to have the rest of her cardiac testing completed. She states that she understands the risk but she is leaving today despite many conversations with her about the consequences of leaving and that we do not think that this is the best thing for her. Exam Data for Last 24 hours Vital signs and Labs for Last 24 Hours: Temp Pulse Resp BP Pulse Ox O2 Del Method 97.6 F 90 18 164/97 H 97 Room Air 03/12/25 08:00 03/12/25 08:05 03/12/25 08:00 03/12/25 08:00 03/12/25 08:00 03/12/25 10:27 Laboratory Results - last 24 hr 03/11/25 13:35: Sodium 127 L, Potassium 3.4 L, Chloride 99, Carbon Dioxide 19 L, Anion Gap 12.4, BUN 8, Creatinine 0.60, Estimated Creat Clear 116, Estimated GFR 105, Est GFR ( Amer) 127, Glucose 137 H D, Calcium 8.1 L, Troponin I < 0.01 03/12/25 09:40: WBC 4.7 L, RBC 3.56 L, Hgb 10.8 L, Hct 32.4 L, MCV 91.0, MCH 30.3, MCHC 33.3, RDW 15.6, Plt Count 279, MPV 9.7, Neut % (Auto) 80.8 H, Lymph % (Auto) 18.6, [place] % (Auto) 0.4 L, Eos % (Auto) 0.0 L, Baso % (Auto) 0.0 L, Neut # (Auto) 3.8, Lymph # (Auto) 0.9, [place] # (Auto) 0.0 L, Eos # (Auto) 0.0, Baso # (Auto) 0.0 I & O for Last 24 hours: Intake & Output 03/09/25 03/10/25 03/11/25 03/12/25 23:59 23:59 23:59 23:59 Intake Total 560 / 740 180 / 180 Output Total 1001 / 1001 0 / 0 0 / 0 Balance -441 / -261 180 / 180 0 / 0 Weight 135 lb 142 lb 149 lb 9.6 oz 135 lb Microbiology Reports for the Last 24 Hours: Microbiology 03/09/25 20:41 Urine,Clean Catch Urine Culture - Final Escherichia coli Constitutional Constitutional: no acute distress and average body habitus *Routine HEENT Exam Head: Present normocephalic and atraumatic ENT: Present mucous membranes moist *Routine Neck Exam Neck: Present supple, full ROM and normal carotid upstroke; Absent JVD, carotid bruit or lymphadenopathy *Routine Respiratory Exam Respiratory: Present CTA bilaterally, normal respiratory effort, able to speak in complete sentences and symmetric chest movement *Routine Cardiovascular Exam Cardiovascular: Present RRR, Normal S1 and Normal S2; Absent murmur or gallop *Routine Abdominal Exam Abdominal: Present soft and normoactive bowel sounds; Absent tenderness, distended or organomegaly *Routine Extremities Exam Extremities: Present full ROM, pulses intact and normal capillary refill; Absent cyanosis, clubbing or edema *Routine Skin Exam Skin: Present intact and warm; Absent erythema *Routine Neurological Exam Neurological: Present alert, oriented X3 and CN II-XII intact; Absent sensory deficit or motor deficit Routine Psychiatric Exam Psychiatric: Present normal affect Progress Note: A&P Assessment and plan (1) Unstable angina: Status: Acute (2) Anxiety disorder: Status: Acute (3) Hyperlipidemia: Status: Acute (4) Shortness of breath: Status: Acute Assessment and Plan Assessment and Plan for All Diagnoses:: Plan: 1. The patient was admitted to the hospital with chest pain. She was found to have unstable angina and admitted to the hospital. She ruled out for [place]. CCTA was canceled due to her contrast allergy and then the patient becomes significantly bradycardic with the premedications. Due to her unstable angina she was set up for left cardiac catheterization today. However, the patient states that she is not having the left cardiac catheterization done today. She states that she has to leave to get to her doctor's appointment in [place] and she will come back to cardiology office and have this set up as an outpatient. She states that she cannot miss her appointment today or she will run the risk of being paralyzed from the plate in her neck and if she does not make her appointment the doctor is going to discharge her from his practice and she does not want to miss this appointment. 2. I had a long discussion with the patient about staying at the hospital and proceeding with heart testing. I did offer to call the patient's provider for her and she declines. She states that she knows how important this is but she does not want to be paralyzed so she will come back at a later date and have her cardiac testing completed as an outpatient. I have advised against this. The patient verbalizes understanding's and understands the risk of her leaving the hospital and not proceeding with further cardiac testing. I have also told the patient that we will probably have to clear her before any surgery and without the left cardiac catheterization we would not be able to clear her. She verbalized understanding and states she will have it done as an outpatient. 3. Echocardiogram shows a normal ejection fraction. 4. Her blood pressure is well-controlled. 5. Her LDL goal is less than 100. Her LDL is 73. She reports she has a history of hyperlipidemia but is no longer on medications because her levels improved. 6. The patient does have a history of significant anxiety. Will defer management of this to her the hospitalist. 7. No further recommendations at this time. We do recommend that if the patient is going to leave the hospital that she be discharged on aspirin and statin and follow-up in cardiology clinic next week. Thank you for the opportunity to help participate in the care of this patient. All recommendations and orders are per Dr. Todd.
--- NOTE | 2025-03-13 10:11 | SW/DCPLANNER ---
Spoke with patient on the phone. Patient stated that she is doing to good today. Patient stated that she is aware of her upcoming appointments. Patient stated that she was able to get her new medicine [facility] Patient stated that she has no concerns or questions at this time. Patient stated that she is missing her clazupam. Phoned the med surg and they are going to look and call me back. I stated to patient that when they call me back and i will phone her back. Rossy Sellers
== END 2025-03-12 12:42 | disposition home or self-care (01) ==
LOC: ER 03-10 00:09 → 2ND 03-10 00:11
PROVIDERS: Internal Medicine; Nurse Practitioner; Student in an Organized Health Care Education/Training Program; Admitting Provider Family Medicine; Emergency Provider Student in an Organized Health Care Education/Training Program; PCP Internal Medicine; Visit Provider Family Medicine
DX: I20.0 Unstable angina (principal); F41.9 Anxiety disorder, unspecified; R00.1 Bradycardia, unspecified; G89.29 Other chronic pain; E03.9 Hypothyroidism, unspecified; J44.89 Other specified chronic obstructive pulmonary disease; E78.2 Mixed hyperlipidemia; F17.210 Nicotine dependence, cigarettes, uncomplicated; F43.10 Post-traumatic stress disorder, unspecified; F10.91 Alcohol use, unspecified, in remission; M50.10 Cervical disc disorder with radiculopathy, unspecified cervical region; R00.0 Tachycardia, unspecified; Z85.43 Personal history of malignant neoplasm of ovary; Z82.49 Family history of ischemic heart disease and other diseases of the circulatory system; Z91.040 Latex allergy status; Z88.4 Allergy status to anesthetic agent; Z88.5 Allergy status to narcotic agent; Z88.1 Allergy status to other antibiotic agents; Z88.0 Allergy status to penicillin; Z88.6 Allergy status to analgesic agent; Z92.3 Personal history of irradiation; Z91.041 Radiographic dye allergy status; Z85.038 Personal history of other malignant neoplasm of large intestine; Z79.51 Long term (current) use of inhaled steroids; Z79.01 Long term (current) use of anticoagulants; Z79.891 Long term (current) use of opiate analgesic; Z79.899 Other long term (current) drug therapy
CPT/HCPCS: 36415; 71045; 80048; 80053; 80061; 80307; 80320; 81001; 83036; 83735; 84439; 84443; 84484; 85025; 86803; 87086; 87088; 87186; 87389; 93005; 93306; 94640; 96372; 96374; 96375; 96376; 99285; G0378; J0461; J1200; J1611; J1650; J2003; J2250; J2405; J2919

== ENCOUNTER 2025-03-24 21:33 | Emergency (ER) | payer MEDICAID, SELFPAY ==
--- OUTSIDE RECORDS SUMMARY | 2025-01-29 00:34 | XMS_ITS | Encounter Summary ---
Author Organization Healthcare Address [address] [place] [address] Care Team Providers Care Photo Specialist Name Role Phone Renard Garcia MD Unavailable [phone] Yohana Aragon DO Unavailable [phone] Yvette Velarde [employer] Unavailable [phone] Pcp, No Primary Care Provider Unavailabl e Reason for Visit * Reason Comments Multiple Complaints Encounter Details Date Type Department Care Team ([facility] st Contact Info) Description 01/29/2025 12:34 AM EDT - 01/29/2025 5:56 AM EDT Emergency [facility] Emergency Department [address] [place] [address] Jose Luis Tolbert, DO [address] [place] [address] Acute pain of left shoulder (Primary Dx); Chest pain, unspecified type; Other chronic pain Discharge Disposition: Home or Self Care Social History Tobacco Use Types Packs/Day Years Used Date Smoking Tobacco: Never Smokeless Tobacco: Current Chew, Snuff Alcohol Use Standard Drinks/Week Comments Not Currently 4 (1 standard drink = 0.6 oz pur e alcohol) occ Comments No Sex and Gender Information Value Date Recorded Sex Assigned at Not on file Legal Sex Female 8:04 PM EDT Gender Identity Not on file Sexual Orientation Not on file documented as of this encounter Last Filed Vital Signs Vital Sign Reading Time Taken Comments Blood Pressure 159/80 01/29/2025 4:32 AM EDT Pulse 87 01/29/2025 4:32 AM EDT Temperature 36.3 C (97.4 F) 01/29/2025 4:32 AM EDT Respiratory Rate 24 01/29/2025 4:32 AM EDT Oxygen Saturation 96% 01/29/2025 4:32 AM EDT Inhaled Oxygen Concentration - - Weight 68 kg (150 lb) 01/29/2025 12:23 AM EDT Height 162.6 cm (5' 4 ) 01/29/2025 12:23 AM EDT Body Mass Index 25.75 01/29/2025 12:23 AM EDT documented in this encounter Functional Status * Calculated C-SSRS Risk Score (Lifetime/Recent) Answer Date of Assessment Author No Risk Indicated 01/29/2025 12:54 AM EDT Lise Miranda * Question Answer Date of Assessment Author 1. Wish to be (Past 1 Month) No 025 12:54 AM EDT Lise Miranda 2. Non-Specific Active Suici shea Thoughts (Past 1 Month) No 01/29/2025 12:54 AM EDT Katelyn Miranda sa 6. Suicidal Behavior (Lifetime) No 12:54 AM EDT Lise Miranda documented as of this encounter Discharge Instructions * Discharge Instructions* Carmen Horn DO - 01/29/2025 5:17 AM EDT Please follow-up with your primary care physician for reevaluation and further management of chronic pain. Continue taking home medications as prescribed. Please return to ED if your symptoms worsen,change in location, change in severity, new symptoms develop or if you become concerned for your health. documented in this encounter Medications at Time of Discharge atorvastatin (Lipitor) 10 MG tablet 08/22/2024 benzonatate (Tessalon) 100 MG capsule Take 1 capsule (100 mg) by mouth 3 (three) times a day as needed for cough. 11/13/2021 brompheniramine- pseudoephedrine- DM 30-2-10 MG/5ML syrup Take 5 mL by mouth 4 (four) times a day as needed for congestion or cough. 08/06/2024 clonazePAM (KlonoPIN) 0.5 MG tablet Take 1 tablet (0.5 mg) by mouth 3 (three) times a day as needed for anxiety. fenofibrate (Tricor) 145 MG tablet 08/08/2024 HYDROcodone-acet aminophen (Trafalgar) 10-325 MG tablet Take 1 tablet (10 mg of hydrocodone) by mouth 3 (three) times a day as needed for moderate pain or severe pain. 08/22/2024 hydrocortisone 2.5 % cream Apply 1 Application topically as needed for irritation. 08/29/2024 levothyroxine (Synthroid, Levoxyl) 25 MCG tablet Take 1 tablet (25 mcg) by mouth daily before breakfast. 11/13/2021 loperamide (Imodium) 2 MG capsule Take 1 capsule (2 mg) by mouth 4 (four) times a day as needed for diarrhea. 10/15/2021 naloxone (Kloxxado) 8 mg/0.1 mL nasal spray 1. Give 1 spray in nostril for no/slow breathing or cannot wake after opioid use 2. Call 911 3. Repeat in other nostril if symptoms continue 1 each 11/03/2023 documented as of this encounter Miscellaneous Notes * Progress Notes - Zenaida Sharpe - 01/29/2025 5:33 AM EDT Patient Identification: Tonya Kamara 54 y.o. female CSN: [id number] Admission: 01/29/2025 12:34 AM Primary Problem: No Principal Problem: There is no principal problem currently on the Problem List.Please update the Problem List and refresh. JEZ received page from medical team that Patient needs transportation scheduled for discharge. Financial screening completed and meets 300% FPG. Pt agreed and signed consent. JEZ scheduled a Lyft to transport Pt to [address] [place] [address]. JEZ relayed national flatbed truck driver's info and ETA to medical team. Zenaida Sharpe ESTIMATOR [employer], [employer]PER[employer]OR ED Social Work * ED Provider Notes - Carmen Horn DO - 01/29/2025 12:13 AM EDT Images from the original note were not included. - HPI Chief Complaint Patient presents with Multiple Complaints HPI Tonya Kamara is a 54 y.o. female with past medical history of cervical myelopathy/radiculopathy,chronic abdominal/neck/back pain, HLD, depression, who presents to the emergency department with complaints of multiple complaints. Patient reports approximately a week ago she lifted a heavy pictureframe to hand causing an injury to her right shoulder. Since then she has noted persistent right shoulder pain radiating into her right neck and radiating into her right arm. Patient notes a history of COPD and feels as if her shoulder pain is causing her baseline shortness for breath to be worse and not controlled with home nebulizer. Patient reports I have chest pressure that feels like 1000lbs on my chest that has been there for a long time. Patient also endorses worsening chronic abdominal pain that she relates to her hiatal hernia. Patient History Past Medical History[1] Surgical History[2] Family History[3] Social History[4] Allergies: Allergies[5] Physical Exam ED Triage Vitals [01/29/25 0023] Temp Heart Rate Resp BP 36.4 ??C (97.6 ??F) 103 22 (!) 138/90 SpO2 Temp Source Heart Rate Source Patient Position 98 % Oral Monitor Sitting BP Location FiO2 (%) Right arm -- Physical Exam Vitals and nursing note reviewed. Constitutional: General: She is not in acute distress. Appearance: She is well-developed. HENT: Head: Normocephalic and atraumatic. Eyes: Conjunctiva/sclera: Conjunctivae normal. Cardiovascular: Rate and Rhythm: Normal rate and regular rhythm. Heart sounds: No murmur heard. Pulmonary: Effort: Pulmonary effort is normal. No respiratory distress. Breath sounds: Normal breath sounds. Comments: Clear to auscultation bilaterally Abdominal: Palpations: Abdomen is soft. Tenderness: There is no abdominal tenderness. Musculoskeletal: General: No swelling. Cervical back: Neck supple. Comments: Mild tenderness to palpation of right trapezius musculature. Limited ROM of right shoulder secondary to pain and poor compliance with exam. Skin: General: Skin is warm and dry. Capillary Refill: Capillary refill takes less than 2 seconds. Neurological: Mental Status: She is alert. Psychiatric: Mood and Affect: Mood normal. [place] Coma Scale Score: 15 ED Course & MDM - Assessment: 54 y.o. female presents to ED with complaint of multiple complaints. It should be noted that the chronic conditions includes cervical myelopathy/radiculopathy, chronic abdominal/neck/back pain, HLD, depression, which currently is not at goal therapy. This complicates the clinical picture because itComorbidities: may be exacerbating symptoms, increases the amount and complexity of data to be reviewed, and complicates the clinical workup Differential Diagnosis: Differential diagnosis includes but is not limited to acute coronary syndrome, aortic dissection, pericarditis, pulmonary embolism, pneumothorax, pneumonia, gastroesophageal reflux, rotator cuff tear, labral tear, impingement syndrome, adhesive capsulitis, shoulder dislocation, humerus fracture, AC injury, glenohumeral instability, chronic pain, malingering, among others In order to fully explore the differential diagnosis the following treatments and tests were ordered: ED Medication Administration from 01/29/2025 0013 to 01/29/2025 0601 Date/Time Order Dose Route Action 01/29/2025 0212 EDT HYDROcodone-acetaminophen (Trafalgar) 5-325 MG per tablet 5 mg of hydrocodone 5 mg of hydrocodone Oral Given 01/29/2025 0212 EDT methocarbamol (Robaxin) tablet 750 mg 750 mg Oral Given 01/29/2025 0328 EDT HYDROmorphone (Dilaudid) injection 0.5 mg 0.5 mg Intravenous Given 01/29/2025 0332 EDT ondansetron (Zofran) injection 4 mg 4 mg Intravenous Given All Other Orders Ordered Status Ordering Provider 01/29/25 0320 XR Chest 1 View One time imaging Final result CARMEN HORN 01/29/25 0125 Troponin T, High Sensitivity, 2 Hour, Plasma PROCEDURE ONCE Final result JOSE LUIS TOLBERT 01/29/25 0205 XR Shoulder Right 2+ Views Once Final result CARMEN HORN 01/29/25 0039 Vital Signs Every 2 hours Acknowledged JOSE LUIS TOLBERT 01/29/25 0039 Oxygen Therapy - Device: Nasal Cannula Continuous Order ID Start Status Ordering Provider [id number] 01/29/25 0040 Completed JOSE LUIS TOLBERT [id number] 01/29/25 0800 Acknowledged JOSE LUIS TOLBERT [id number] 07/08/25 2000 Acknowledged SERGIO JOSE LUIS B 01/30/25 0800 Scheduled SERGIO JOSE LUIS B 01/30/251999 Scheduled JOSE LUIS TOLBERT 01/31/25 0800 Scheduled SERGIO JOSE LUIS B 01/31/251999 Scheduled SERGIO JOSE LUIS B 02/01/25 0800 Scheduled SERGIO JOSE LUIS B 02/01/251999 Scheduled JOSE LUIS TOLBERT 02/02/25 0800 Scheduled SERGIO JOSE LUIS B 02/02/251999 Scheduled JOSE LUIS TOLBERT Acknowledged SERGIO JOSE LUIS Stefan 01/29/25 0039 ED Protocol - HIV 1/2 Antibody/Antigen Screen w/Reflex to HIV 1/2 Differentiation Once Final result JOSE LUIS TOLBERT 01/29/25 0040 ED HIV 1/2 Antibody/Antigen Screen w/Reflex to HIV 1/2 Differentiation PROCEDURE ONCE Final result JOSE LUIS TOLBERT 01/29/25 0039 Insert peripheral IV Once Acknowledged JOSE LUIS TOLBERT 01/29/25 003 ED / Procedure Cardiac Monitoring Until discontinued Acknowledged JOSE LUIS TOLBERT 01/29/25 0039 Continuous Pulse Oximetry Until discontinued Acknowledged SERGIO JOSE LUIS B 01/29/25 0039 CBC with Diff STAT Final result JOSE LUIS TOLBERT 01/29/25 0039 BMP STAT Final result JOSE LUIS TOLBERT 01/29/25 0039 Troponin now and 120 min STAT Final result SERGIO JOSE LUIS B 01/29/25 0023 EKG now - STAT (adult) Once Preliminary result MARICRUZ OREILLY ED Course as of 01/29/25 0601 TueJan 29, 2025 0248 XR Shoulder Right 2+ Views IMPRESSION: No acute fracture or malalignment. [TK] 0448 XR Chest 1 View IMPRESSION: No acute findings [TK] 0512 On reevaluation, patient is resting comfortably and in no acute distress. She reports most of her presenting complaints had improved but she now listed a plethora of new issues including left upper extremity pain, right hand pain, weakness, abdominal pain, neck pain, among others. I explained to patient that many of her symptoms are chronic and should be followed outpatient with her established PCP. Patient then noted that she would be fine if she had 2-3 days of Lortab. I had an interactive discussion with the patient that her laboratory/imaging workup was nonactionable and given her symptoms are largely chronic (aside from right shoulder pain) narcotic pain prescription was not joe cated. Patient was understanding and agreeable with the plan. Patient standing at bedside and HDS. Strict return precautions provied. [TK] ED Course User Index [TK] Carmen Horn, DO Clinical Impressions as of 01/29/25 0601 Acute pain of left shoulder Chest pain, unspecified type Other chronic pain Social Determinates of Health Risks (including Economic Stability, Education and level of understanding, Healthcare access and quality and concerning social factors): Poor health literacy Ultimately, this patient was Was discharged Home (Discharge) The primary encounter diagnosis was Acute pain of left shoulder. Diagnoses of Chest pain, unspecified type and Other chronic pain were also pertinent to this visit. . Patient was counseled on the diagnoses. Discharge medications if any are listed below. Listed medications are thought beeither curative for listed diagnoses or will help control ongoing symptoms. Patient is requested tofollow up with Patient's Primary Care Provider in order to obtain routine follow-up. Instructions on follow up as well as precautions to return to the ER provided verbally by the EM provider, as wellas written in patients discharge education packet. ED Prescriptions None Discharge Instructions Please follow-up with your primary care physician for reevaluation and further management of chronic pain. Continue taking home medications as prescribed. Please return to ED if your symptoms worsen,change in location, change in severity, new symptoms develop or if you become concerned for your health. Disposition Discharge AVS ([place] Snapshot) - Printed 01/29/2025 [1] Past Medical History: Diagnosis Date Awareness under anesthesia Back pain COPD (chronic obstructive pulmonary disease) ([facility]) Neck pain Personal history of other diseases of the circulatory system History of hypertension Personal history of other diseases of the digestive system History of gastroesophageal reflux (GERD) Personal history of other diseases of the digestive system History of hiatal hernia Personal history of other diseases of the respiratory system History of asthma Personal history of other endocrine, nutritional and metabolic disease History of hypothyroidism Personal history of other mental and behavioral disorders History of anxiety [2] Past Surgical History: Procedure Laterality Date CHOLECYSTECTOMY HYSTERECTOMY Bilateral 2019 Hysterectomy from [facility] BSO Enterocele repair for pelvic pain, endometriosis and fibroidper outside notes OTHER SURGICAL HISTORY N/A Uterine polypectomy from [facility] SPINE SURGERY WISDOM TOOTH EXTRACTION N/A [place] tooth extraction from [facility] [3] Family History Problem Relation Name Age of Onset Cardiac disorder Other Diabetes Other Other cancer Other Rheum arthritis Other [4] Tobacco Use Smoking status: Never Smokeless tobacco: Current Types: Chew, Snuff Vaping Use Vaping status: Never Used Substance Use Topics Alcohol use: Not Currently Alcohol/week: 4.0 standard drinks of alcohol Types: 4 Cans of beer per week Comment: occ Drug use: Not Currently Comment: Drug use: No illicit drug use [5] Allergies Allergen Reactions Asa [Aspirin] Hives, Itching and Swelling Azithromycin Hives, Itching and Swelling Codeine Hives, Itching and Swelling Erythromycin Hives, Itching and Swelling Ibuprofen Hives, Itching and Swelling Iodinated Contrast Media Anaphylaxis Penicillins Hives, Itching and Swelling Tramadol Hives, Itching and Swelling Latex Rash Carmen Horn DO Resident 01/29/25 06 Cosigned by Jose Luis Tolbert DO at 02/01/2025 10:06 PM EDT Associated attestation - Jose Luis Tolbert DO - 02/01/2025 10:06 PM EDT I saw and evaluated the patient with the resident/fellow. I discussed the case with the resident/fellow and agree with the findings and plan as documented. * ED Triage Notes - Peggy Mccain RN - 01/29/2025 12:13 AM EDT Patient states around a week ago she picked up a heavy picture frame to hang on the wall and it slipped our of her hand and injured her right shoulder. Since then has c/o right arm / shoulder pain. States has dx of COPD and the pain in her shoulder is making breathing difficult. States she feels like she cannot get a deep breath in. Also c/o chest pain it feels like there is 1000 lbs on my chest - also c/o posterior neck pain and abdominal pain r/t to her hiatal hernia. C/o abdominal swellingas well. documented in this encounter Plan of Treatment Not on file documented as of this encounter Procedures Procedure Name Priority Date/Time Associated Diagnosis Comments XR CHEST 1 VIEW STAT 01/29/2025 4:02 AM EDT TROPONIN T, HIGH SENSITIVITY, 2 HOUR, PLASMA Timed 01/29/2025 2:45 AM EDT XR SHOULDER RIGHT 2+ VIEWS STAT 01/29/2025 2:30 AM EDT ED HIV 1/2 ANTIBODY/ANTIGEN SCREEN WITH REFLEX TO HIV I/II DIFFERENTIATION STAT 01/29/2025 12:49 AM EDT ED PROTOCOL HIV 1/2 ANTIBODY/ANTIGEN SCREEN W/REFLEX TO HIV 1/2 ANTIBODY DIFFERENTIATION STAT 01/29/2025 12:49 AM EDT TROPONIN T, HIGH SENSITIVITY, 0 HOUR, PLASMA, REFLEX TO 2 HOUR STAT 01/29/2025 12:49 AM EDT CBC WITH AUTO DIFFERENTIAL STAT 01/29/2025 12:49 AM EDT BASIC METABOLIC PANEL, PLASMA STAT 01/29/2025 12:49 AM EDT OXYGEN THERAPY STAT 01/29/2025 12:40 AM EDT ECG ADULT STAT 01/29/2025 12:27 AM EDT documented in this encounter Results * XR Chest 1 View (01/29/2025 4:02 AM EDT) Anatomical Region Laterality Modality Chest Digital Radiogra phy Impressions 01/29/2025 4:12 AM EDT No acute findings. CRITICAL RESULT: No. COMMUNICATION: Per this written report. By electronically signing this report, I, the attending physician, attest that I have personally reviewed the images/data for the above examination(s) and agree with the final edited report. Drafted by Shaggy Harris MD on 01/29/2025 4:02 AM Final report signed by Daniel Peña MD on 01/29/2025 4:12 AM Narrative 01/29/2025 4:12 AM EDT CLINICAL INDICATION: CP TECHNIQUE: XR CHEST 1 VIEW COMPARISON: Chest radiograph 09/06/2024 FINDINGS: Cardiac silhouette and mediastinal contours are within normal limits. No focal consolidation, pleural effusion, or pneumothorax. No acute osseous abnormality. Procedure Note Daniel Peña MD - 01/29/2025 CLINICAL INDICATION: CP TECHNIQUE: XR CHEST 1 VIEW COMPARISON: Chest radiograph 09/06/2024 FINDINGS: Cardiac silhouette and mediastinal contours are within normal limits. Nofocal consolidation, pleural effusion, or pneumothorax. No acute osseousabnormality. IMPRESSION: No acute findings. CRITICAL RESULT: No. COMMUNICATION: Per this written report. By electronically signing this report, I, the attending physician, attestthat I have personally reviewed the images/data for the aboveexamination(s) and agree with the final edited report. Drafted by Shaggy Harris MD on 01/29/2025 4:02 AM Final report signed by Daniel Peña MD on 01/29/2025 4:12 AM us Jose Luis Tolbert DO IMG XR PROCEDURES Final Resu lt * Troponin T, High Sensitivity, 2 Hour, Plasma (01/29/2025 2:45 AM EDT) Troponin T, High Sensitivity, 2 Hour <6 <14 ng/L 01/29/2025 3:30 AM EDT [facility] Troponin Delta Interpretation Not Calculated 01/29/2025 3:30 AM EDT [facility] Comment:Specimen not collect ed within acceptable timeframe. Delta will not be calculated. Blood Venous blood specimen / Unknown Venipuncture / Unknown 01/29/2025 2:45 AM EDT 01/29/2025 3:00 AM EDT us Jose Luis Tolbert DO LAB BLOOD ORDERABLES Final R esult [facility] [address] [place] [address] * XR Shoulder Right 2+ Views (01/29/2025 2:30 AM EDT) Anatomical Region Laterality Modality Upper Extremities, Shoulder Right Digi susan Radiography Impressions 01/29/2025 2:38 AM EDT No acute fracture or malalignment. CRITICAL RESULT: No. COMMUNICATION: Per this written report. By electronically signing this report, I, the attending physician, attest that I have personally reviewed the images/data for the above examination(s) and agree with the final edited report. Drafted by Shaggy Harris MD on 01/29/2025 2:34 AM Final report signed by Daniel Peña MD on 01/29/2025 2:38 AM Narrative 01/29/2025 2:38 AM EDT CLINICAL INDICATION: right shoulder pain TECHNIQUE: XR SHOULDER RIGHT 2+ VIEWS COMPARISON: None. FINDINGS: No acute fracture or malalignment. No abnormality in the imaged portion of the right lung. No displaced fracture in the imaged portion of the right ribs. Procedure Note Daniel Peña MD - 01/29/2025 CLINICAL INDICATION: right shoulder pain TECHNIQUE: XR SHOULDER RIGHT 2+ VIEWS COMPARISON: None. FINDINGS: No acute fracture or malalignment. No abnormality in the imaged portion ofthe right lung. No displaced fracture in the imaged portion of the rightribs. IMPRESSION: No acute fracture or malalignment. CRITICAL RESULT: No. COMMUNICATION: Per this written report. By electronically signing this report, I, the attending physician, attestthat I have personally reviewed the images/data for the aboveexamination(s) and agree with the final edited report. Drafted by Shaggy Harris MD on 01/29/2025 2:34 AM Final report signed by Daniel Peña MD on 01/29/2025 2:38 AM Jose Luis Tolbert DO IMG XR PROCEDURES Final Resu lt * ED HIV 1/2 Antibody/Antigen Screen w/Reflex to HIV 1/2 Differentiation (01/29/2025 12:49 AM EDT) [facility] HIV 1 & 2 Antibody/Antigen Screen Non Reactive Non Reactive 01/29/2025 1:41 AM EDT [facility] Comment:Screening for HIV 1 & 2 antibodies, and P24 antigen is NONREACTIVE. No confirmatory testing is required. Blood Venous blood specimen / Unknown Venipuncture / Unknown 01/29/2025 12:49 AM EDT 01/29/2025 1:01 AM EDT Jose Luis Tolbert DO LAB BLOOD ORDERABLES Final R esult [facility] [address] [place] [address] * Troponin now and 120 min (01/29/2025 12:49 AM EDT) [facility] Troponin T, High Sensitivity, 0 Hour <6 <14 ng/L 01/29/2025 1:26 AM EDT [facility] Blood Venous blood specimen / Unknown Venipuncture / Unknown 01/29/2025 12:49 AM EDT 01/29/2025 12:57 AM EDT Jose Luis Aviles [place] DO LAB BLOOD ORDERABLES Final R esult [facility] [address] [place] [address] * (ABNORMAL) BMP (01/29/2025 12:49 AM EDT) [facility] Glucose, Plasma 77 74 - 99 mg/dL 01/29/2025 1:26 AM EDT [facility] BUN, Plasma 8 7 - 21 mg/dL 01/29/2025 1:26 AM EDT [facility] Creatinine, Plasma 0.67 0.60 - 1.10 mg/dL 01/29/2025 1:26 AM EDT [facility] BUN/Creatinine Ratio 12 01/29/2025 1:26 AM EDT [facility] Sodium, Plasma 133(L) 136 - 145 mmol/L 01/29/2025 1:26 AM EDT [facility] Potassium, Plasma 3.5(L) 3.6 - 4.9 mmol/L 01/29/2025 1:26 AM EDT [facility] Chloride, Plasma 97 97 - 107 mmol/L 01/29/2025 1:26 AM EDT [facility] CO2, Plasma 21(L) 22 - 29 mmol/L 01/29/2025 1:26 AM EDT [facility] Anion Gap 15 6 - 16 mmol/L 01/29/2025 1:26 AM EDT [facility] Total Calcium, Plasma 9.3 8.9 - 10.2 mg/dL 01/29/2025 1:26 AM EDT [facility] eGFRcr 104.7 mL/min/1.7 3m*2 01/29/2025 1:26 AM EDT [facility] Comment:Reported eGFRcr in m L/min/1.73m2 is based the CKD-EPI 2020 equation that does not use a race coefficient. Blood Venous blood specimen / Unknown Venipuncture / Unknown 01/29/2025 12:49 AM EDT 01/29/2025 12:57 AM EDT Jose Luis Tolbert DO LAB BLOOD ORDERABLES Final R esult [facility] [address] [place] [address] * (ABNORMAL) CBC with Diff (01/29/2025 12:49 AM EDT) WBC Count 5.63 3.70 - 10.30 10*3/uL LAB HEMATOLOGY METHOD 01/29/2025 1:01 AM EDT [facility] RBC Count 3.82(L) 3.90 - 5.20 10*6/uL LAB HEMATOLOGY METHOD 01/29/2025 1:01 AM EDT [facility] HGB 11.5 11.2 - 15.7 g/dL LAB HEMATOLOGY METHOD 01/29/2025 1:01 AM EDT [facility] HCT 34.1 34.0 - 45.0 % LAB HEMATOLOGY METHOD 01/29/2025 1:01 AM EDT [facility] Platelet Count 324 155 - 369 10*3/uL LAB HEMATOLOGY METHOD 01/29/2025 1:01 AM EDT [facility] MCV 89 79 - 98 fL LAB HEMATOLOGY METHOD 01/29/2025 1:01 AM EDT [facility] MCH 30.1 26.0 - 32.0 pg LAB HEMATOLOGY METHOD 01/29/2025 1:01 AM EDT [facility] MCHC 33.7 30.7 - 35.5 g/dL LAB HEMATOLOGY METHOD 01/29/2025 1:01 AM EDT [facility] RDW 14.6(H) 11.5 - 14.5 % LAB HEMATOLOGY METHOD 01/29/2025 1:01 AM EDT [facility] MPV 8.8 8.8 - 12.5 fL LAB HEMATOLOGY METHOD 01/29/2025 1:01 AM EDT [facility] nRBC 0.0 <=0.0 per 100 WBCs LAB HEMATOLOGY METHOD 01/29/2025 1:01 AM EDT [facility] Differential Type Automated LAB HEMATOLOGY METHOD 01/29/2025 1:01 AM EDT [facility] Neutrophils % 32 % LAB HEMATOLOGY METHOD 01/29/2025 1:01 AM EDT [facility] Lymphocytes % 61 % LAB HEMATOLOGY METHOD 01/29/2025 1:01 AM EDT [facility] Monocytes % 6 % LAB HEMATOLOGY METHOD 01/29/2025 1:01 AM EDT [facility] Eosinophils % 1 % LAB HEMATOLOGY METHOD 01/29/2025 1:01 AM EDT [facility] Basophils % 0 % LAB HEMATOLOGY METHOD 01/29/2025 1:01 AM EDT [facility] Immature Granulocytes % 0 % LAB HEMATOLOGY METHOD 01/29/2025 1:01 AM EDT [facility] Neutrophils Absolute 1.82 1.60 - 6.10 10*3/uL LAB HEMATOLOGY METHOD 01/29/2025 1:01 AM EDT [facility] Lymphocytes Absolute 3.41 1.20 - 3.90 10*3/uL LAB HEMATOLOGY METHOD 01/29/2025 1:01 AM EDT [facility] Monocytes Absolute 0.31 0.30 - 0.90 10*3/uL LAB HEMATOLOGY METHOD 01/29/2025 1:01 AM EDT [facility] Eosinophils Absolute 0.07 0.00 - 0.50 10*3/uL LAB HEMATOLOGY METHOD 01/29/2025 1:01 AM EDT [facility] Basophils Absolute 0.01 0.00 - 0.10 10*3/uL LAB HEMATOLOGY METHOD 01/29/2025 1:01 AM EDT [facility] Immature Granulocytes Absolute 0.01 0.00 - 0.06 10*3/uL LAB HEMATOLOGY METHOD 01/29/2025 1:01 AM EDT [facility] Blood Venous blood specimen / Unknown Venipuncture / Unknown 01/29/2025 12:49 AM EDT 01/29/2025 12:57 AM EDT Narrative [facility] - 01/29/2025 1:01 AM EDT Therapeutic decision making should be based on absolute values, rather than percentages. us Jose Luis Tolbert DO LAB BLOOD ORDERABLES Final R esult [facility] [address] [place] [address] * EKG now - STAT (adult) (01/29/2025 12:27 AM EDT) EKG DIAGNOSIS CLASS Borderline Abnormal MUSE ECG Ventricular Rate 95 BPM MUSE ECG Atrial Rate 95 BPM MUSE ECG TX Interval 176 ms MUSE ECG QRSD Interval 80 ms MUSE ECG QT Interval 368 ms MUSE ECG QTC Interval 462 ms MUSE ECG P [place] 39 degrees MUSE ECG R [place] 37 degrees MUSE ECG T Wave [place] 48 degrees MUSE ECG Diagnosis Normal sinus rhythm MUSE ECG Diagnosis Possible Left atrial enlargement MUSE ECG Diagnosis Borderline ECG MUSE ECG Diagnosis MUSE ECG Diagnosis Confirmed by Bo Renee ([id number]) on 01/29/2025 12:53:04 PM MUSE ECG 01/29/2025 12:2 7 AM EDT 01/29/2025 12:53 PM EDT us Maricruz Oreilly MD ECG ORDERABLES Final Result MUSE ECG documented in this encounter Visit Diagnoses Diagnosis Acute pain of left shoulder- Primary Chest pain, unspecified type Other chronic pain documented in this encounter Administered Medications Inactive Administered Medications - up to 3 most recent administrations Medication Order MAR Action Action Date Dose Rate Site HYDROcodone-acetaminophe n ([place]) 5-325 MG per tablet 5 mg of hydrocodone 5 mg of hydrocodone, Oral, Once, 1 dose, On Tue01/29/25 at 0205, STAT Given 01/29/2025 2:12 AM EDT 5 mg of hydrocodone HYDROmorphone (Dilaudid) injection 0.5 mg 0.5 mg, Intravenous, Once, 1 dose, On Tue01/29/25 at 0315, STAT Given 01/29/2025 3:28 AM EDT 0.5 mg methocarbamol (Robaxin) tablet 750 mg 750 mg, Oral, Once, 1 dose, On Tue01/29/25 at 020, STAT Given 01/29/2025 2:12 AM EDT 750 mg ondansetron (Zofran) injection 4 mg 4 mg, Intravenous, Once, 1 dose, On Tue01/29/25 at 0335, STAT Given 01/29/2025 3:32 AM EDT 4 mg documented in this encounter Active and Recently Administered Medications Times are shown in EDT. Scheduled Medication Order 01/27/2025 01/28/2025 01/29/2025 HYDROcodone-acetaminophen ([place]) 5-325 MG per tablet 5 mg of hydrocodone (COMPLETED) 5 mg of hydrocodone, Oral, Once, 1 dose, On Tue01/29/25 at 0205, STAT 021 (Given - Provid er: Lisesa Miranda) HYDROmorphone (Dilaudid) injection 0.5 mg (COMPLETED) 0.5 mg, Intravenous, Once, 1 dose, On Tue01/29/25 at 0315, STAT 0328 (Given - Provid er: Lisesa Miranda) methocarbamol (Robaxin) tablet 750 mg (COMPLETED) 750 mg, Oral, Once, 1 dose, On Tue01/29/25 at 0205, STAT 0212 (Given - Provid er: Lisesa Miranda) ondansetron (Zofran) injection 4 mg (COMPLETED) 4 mg, Intravenous, Once, 1 dose, On Tue01/29/25 at 0335, STAT 033 (Given - Provid er: Lise Ruben) documented in this encounter Additional Health Concerns Assessment Noted Time A fall risk assessment has been complete d for the patient 11/10/2023 10:06 AM EDT A Body Mass Index follow-up plan has been documented for the patient 09/12/2024 3:08 PM EST documented as of this encounter Care Teams Photo Specialist Relationship Specialty Start Date End Date Pcp, No [address] [place] [address] PCP - General Family Medicine 01/29/25 Renard Garcia MD [address] [place] [address] Surgeon Neurosurgery 11/25/21 Yohana Aragon DO [address] [place] [address] Obstetrics and Gynecology 10/22/22 Yvette Velarde APRN [address] [place] [address] Nurse Practitioner Neurosurgery 11/10/23 documented as of this encounter
--- OUTSIDE RECORDS SUMMARY | 2025-02-05 11:00 | XMS_ITS | Encounter Summary ---
[facility] [address] [place] [address] Care Team Providers Care Social Media Editor Name Role Phone Xavier Esposito MD Primary Care Provider + Reason for Referral * Pain Management (Routine) - Authorized Specialty Diagnoses / Procedures Referred By Contac t Referred To Contact Pain Medicine Diagnoses Chronic neck and back pain Procedures ND OFFICE/OUTPATIENT NEW MODERATE MDM 45 MINUTES Xavier Esposito MD [address] [place] [address] [place] [address] Phone: tel: fax: Nikita Chance II, MD [address] [place] [address] Phone: tel: fax: Referral ID Status Reason Start Date Expiration Date Visits Requested Visits Authorized [id number] Authorized Specialty Services Required 02/05/2025 05/07/2026 1 1 * Consultation (Routine) - Authorized Specialty Diagnoses / Procedures Referred By Contac t Referred To Contact Diagnoses Gastroesophageal reflux disease without esophagitis Esophageal dysmotility Polyp of colon, unspecified part of colon, unspecified type Procedures ND OFFICE/OUTPATIENT NEW MODERATE MDM 45 MINUTES Xavier Esposito MD [address] [place] [address] Phone: tel: fax: Tim Jimenez MD [address] [place] [id number] Phone: tel: fax: Referral ID Status Reason Start Date Expiration Date Visits Requested Visits Authorized Authorized Specialty Services Required 02/05/2025 05/07/2026 1 1 Scheduling Instructions Refer to Dr. Tim Jimenez * Consultation (Routine) - Closed Specialty Diagnoses / Procedures Referred By Contac t Referred To Contact Orthopedic Surgery Diagnoses Injury of right rotator cuff, subsequent encounter Xavier Esposito MD [address] [place] [address] Phone: tel: fax: Rod Au MD [facility] [place] [address] Phone: tel: fax: Referral ID Status Reason Start Date Expiration Date V isits Requested Visits Authorized Closed Specialty Services Required 02/05/2025 05/07/2026 1 1 Scheduling Instructions Refer to Dr. [facility] in [place] * Consultation (Routine) - Closed Specialty Diagnoses / Procedures Referred By Contac t Referred To Contact Pulmonary Disease Diagnoses Lung disease Dyspnea on exertion Procedures ND OFFICE/OUTPATIENT NEW MODERATE MDM 45 MINUTES Xavier Esposito MD [address] [place] [address] Phone: tel: fax: Albert Linares MD Referral ID Status Reason Start Date Expiration Date V isits Requested Visits Authorized Closed Specialty Services Required 02/05/2025 05/07/2026 1 1 Scheduling Instructions Refer to Dr. Albert Linares Reason for Visit * Reason Comments ER f/u [facility] Encounter Details Date Type Department Care Team (Late st Contact Info) Description 02/05/2025 11:00 AM EDT Office Visit [facility] [address] [facility] [place] [phone] Xavier Esposito MD [address] [facility] [place] [address] Lung disease (Primary Dx); Dyspnea on [...] swallowing. Patient has been seen at the [facility] as well as at [facility] by hazmat truck driver. Testing performed in August 2024 showed esophageal [...] prescriptions from other primary care providers in [place]. Right shoulder pain. Patient was seen at the [facility] 1 week ago [place]. She believes the fall may have caused a rotator cuff tear. Anxiety. Patient is seeing psychiatric ACCOUNT AUDITOR at [facility] who is prescribed the patient's clonazepam [...] management physician. This applies to both her [place] and her gabapentin 4. Patient will be referred to local orthopedics for her right rotator cuff injury 5. Patient's anxiety is a significant contributor to her review of her health as well as control ofher chronic conditions exacerbating symptoms of dyspnea, exacerbating symptoms of pain. She should continue to see behavioral health at [facility] 6. Long discussion was had with the patient regarding the fractured nature of her care. This year alone she has seen 3 different primary care physicians, but goes to the emergency room at the [facility], all while living in [place]. I have recommended that she get established with [facility] care system to allow for better care. She will be moving to [place]. She will continue to come tothis office as her PCP but specialist referrals will be made within [facility] with the exception of her already established [...] Description 04/08/2025 11:45 AM EDT Office Visit [facility] [address] [place] [phone] Xavier Esposito MD [address] [place] [address] documented as of this encounter Visit Diagnoses [...] pain documented in this encounter Care Teams Social Media Editor Relationship Specialty Start Date End Date Xavier Esposito MD [address] [place] [address] PCP - General Family Medicine 09/24/24 documented as of this encounter
--- NOTE | 2025-03-24 21:35 | ECG_ITS ---
APPROVED REPORT Exam: Resting ECG HR:88 bpm ECG Measurements Heart Rate 88 AXES NJ 157 P 58 QRSd 89 QRS 50 QT 372 T 57 QTc 417 Conclusion Normal sinus rhythm without acute ST or T wave changes concerning for ischemia Electronically signed by : Alisson Mcmanus, 03/25/2025 00:16:35
[2025-03-24 21:38] VITALS: BP 141/106; PULSE 86; RESP 17; TEMP 36.8; O2SAT 100; BMI 24.0
--- OUTSIDE RECORDS SUMMARY | 2025-03-24 21:38 | XMS_ITS | Encounter Summary ---
Author Organization [facility] Address [address] [place] [address] Care Team Providers Care Men'S And Boys' Clothing Salesperson Name Role Phone Xavier Esposito MD Primary Care Provider + Reason for Visit * Reason Onset Date Comments REFERRAL REQUEST 02/26/2025 Encounter Details Date Type Department Care Team (Late st Contact Info) Description 02/26/2025 Telephone [facility] [address] [place] [address] Xavier Esposito MD [address] [place] [address] REFERRAL REQUEST Social History Tobacco [...] HAS SEEN MOST OF THE PROVIDERS IN [place] AND [facility]. I TOLD HER I WOULD TRY [...] Description 04/08/2025 11:45 AM EDT Office Visit [facility] [address] [place] [address] Xavier Esposito MD [address] [place] [address] documented as of this encounter Visit Diagnoses Not on filedocumented in this encounter Care Teams Men'S And Boys' Clothing Salesperson Relationship Specialty Start Date End Date Xavier Esposito MD [address] [place] [address] PCP - General Family Medicine 09/24/24 documented as of this encounter
--- OUTSIDE RECORDS SUMMARY | 2025-03-24 21:38 | XMS_ITS | Clinical Summary ---
Author Organization [facility] Address [address] [place] [address] Care Team Providers Care Sealer Dry Cell Name Role Phone Xavier Esposito MD Primary [...] of the L-spine in ER visit at [facility] revealing mild to moderate degenerative changes with mild L4 and L5 retrolisthesis which is stable, no acute abnormality. Referring to pain management for further evaluation, noting up until recently had been prescribed Volga 10 mg 4 times daily and gabapentin [...] Dr. Oswaldo Carrasquillo of general surgery in [place], patient indicating had 2 polyps left in [...] (09/08/2023 6:18 PM EST): Obtain records from [facility]. Keep [facility] follow-up. 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 Vaginal Pap smear with LGSIL 08/25/2022 Resolved Problems Problem Noted Date Diagnosed Date Resolved Date Chronic back pain 10/22/2022 09/08/2023 Cervical myelopathy 11/25/2021 09/08/19 24 Overview (09/06/2023): Added automatically from request for surgery [id number] Encounters Date Type Department Care Team Description 03/05/2025 Refill [facility] [address] [place] [address] Xavier Esposito MD 02/28/2025 Telephone [facility] [address] [place] [address] Xavier Esposito MD Advice Only 02/26/2025 Telephone [facility] [address] [place] [address] Xavier Esposito MD New Med Request 02/26/2025 Telephone [facility] [address] [place] [address] Xavier Esposito MD REFERRAL REQUEST 02/26/2025 Refill [facility] [address] [place] [address] Xavier Esposito MD Chronic obstructive pulmonary disease, unspecified COPD type 02/05/2025 11:00 AM EDT Office Visit [facility] [address] [place] [address] Xavier Esposito MD Lung disease (Primary Dx); [...] Description 04/08/2025 11:45 AM EDT Office Visit [facility] [address] [place] [address] Xavier Esposito MD [address] [place] [address] Health Maintenance Due Date Last Done [...] Anatomical Region Laterality Modality Other Peggy Khoury [facility] CHART REVIEW TAB[facility] Final Result from Last 3 Months or Most Recently Relevant to Health Maintenance Insurance [facility] MEDICAID Care Teams Sealer Dry Cell Relationship Specialty Start Date End Date Xavier Esposito MD [address] [place] [address] PCP - General Family Medicine 09/24/24
--- OUTSIDE RECORDS SUMMARY | 2025-03-24 21:38 | XMS_ITS | Encounter Summary ---
Author Organization [facility] Address [address] [place] [address] Care Team Providers Care Bristle Machine Operator Name Role Phone Xavier Esposito MD Primary Care Provider + Reason for Visit * Reason Onset Date Comments New Med Request 02/26/2025 Encounter Details Date Type Department Care Team (Late st Contact Info) Description 02/26/2025 Telephone [facility] [address] [place] [address] Xavier Esposito MD [address] [place] [address] New Med Request Social History [...] your preferred pharmacy and phone number: [facility] - [place] - [address] [address] [address] - [phone] PH - [phone] FX [phone] Additional notes: PATIENT HAD BEEN SEEING PAIN [...] Description 04/08/2025 11:45 AM EDT Office Visit [facility] [address] [place] [address] Xavier Esposito MD [address] [place] [address] documented as of this encounter Visit Diagnoses Not on filedocumented in this encounter Care Teams Bristle Machine Operator Relationship Specialty Start Date End Date Xavier Esposito MD [address] [place] [address] PCP - General Family Medicine 09/24/24 documented as of this encounter
--- OUTSIDE RECORDS SUMMARY | 2025-03-24 21:38 | XMS_ITS | Encounter Summary ---
Author Organization [facility] Address [address] [place] [address] Care Team Providers Care Pulp Maker Name Role Phone Xavier Esposito MD Primary [...] Description 04/08/2025 11:45 AM EDT Office Visit [facility] [address] [place] [address] Xavier Esposito MD [address] [place] [address] documented as of this encounter Visit Diagnoses Not on filedocumented in this encounter Care Teams Pulp Maker Relationship Specialty Start Date End Date Xavier Esposito MD [address] [place] [address] PCP - General Family Medicine 09/24/24 documented as of this encounter
--- OUTSIDE RECORDS SUMMARY | 2025-03-24 21:38 | XMS_ITS | Encounter Summary ---
Author Organization [facility] Address [address] [place] [id number] Care Team Providers Care Is Architect Name Role Phone Xavier Esposito MD Primary Care Provider + Reason for Visit * Reason Onset Date Comments Med Refill 02/26/2025 Encounter Details Date Type Department Care Team (Late st Contact Info) Description 02/26/2025 Refill [facility] [address] [place] [address] Xavier Esposito MD [address] [place] [address] Chronic obstructive pulmonary disease, unspecified [...] Pharmacy where request should be sent: [facility] [place] - [address] [address] [address] - [phone] - [phone] FX Last office visit with prescribing clinician: [...] Description 04/08/2025 11:45 AM EDT Office Visit [facility] [address] [place] [address] Xavier Esposito MD [address] [place] [address] documented as of this encounter Visit Diagnoses Diagnosis Chronic obstructive pulmonary disease, unspecified COPD type documented in this encounter Care Teams Is Architect Relationship Specialty Start Date End Date Xavier Esposito MD [address] [place] [address] PCP - General Family Medicine 09/24/24 documented as of this encounter
--- NOTE | 2025-03-24 21:39 | [facility].EDGENADL ---
Discharge Plan Disposition Patient Disposition: Home, Self-Care Prescriptions Prescriptions: No Action clonazepam [Klonopin] 0.5 mg tablet 0.5 mg PO BIDP PRN (Reason: Anxiety) 8 Days Qty: 16 0RF albuterol sulfate 90 mcg/actuation HFA aerosol inhaler 1 inh inhalation Q6HP PRN (Reason: Shortness Of Breath) omeprazole 40 mg capsule,delayed release(DR/EC) 40 mg PO DAILY Qty: 90 1RF promethazine 25 mg tablet 25 mg PO BIDP PRN (Reason: Nausea And Vomiting) benzonatate 100 mg capsule 100 mg PO TIDP PRN (Reason: Cough) Rx Instructions: TAKE 1 CAPSULE BY MOUTH 3 TIMES A DAY NEEDED FOR COUGH albuterol sulfate 2.5 mg /3 mL (0.083 %) solution for nebulization 5 mg inhalation Q6HP PRN (Reason: Shortness Of Breath Or Wheezing) Patient Comments: INHALE CONTENTS OF 2 VIALS VIA NEBULIZER EVERY 6 HOURS NEEDED FOR SHORTNESS OF BREATH OR WHEEZING umeclidinium-vilanterol [Anoro Ellipta] 62.5-25 mcg/actuation blister with device 1 inh INHALATION DAILY Patient Comments: INHALE 1 PUFF BY MOUTH ONCE A DAY meloxicam 7.5 mg tablet 7.5 mg PO BID Patient Comments: TAKE 1 TABLET BY MOUTH 2 TIMES A DAY fenofibrate nanocrystallized 145 mg tablet 145 mg PO DAILY Patient Comments: TAKE ONE TABLET BY MOUTH ONCE A DAY loperamide 2 mg capsule 6 mg PO BIDP PRN (Reason: Diarrhea) hydrocodone-acetaminophen 10-325 mg tablet 1 tab PO Q8HP PRN (Reason: Severe Pain (Scale Score 7-10)) levothyroxine 25 mcg tablet 25 mcg PO DAILYDM Rx Instructions: TAKE ONE TABLET BY MOUTH ONCE A DAY FOR THYROID hydrocortisone-aloe vera [Anti-Itch(hydrocortisone)-Aloe] 1 % cream 1 applic topical TIDP PRN (Reason: skin irritation) fluticasone propionate 50 mcg/actuation spray,suspension 1 spray INTRANASAL BID atorvastatin 40 mg Tablet 80 mg PO HS 30 Days Qty: 60 0RF aspirin 81 mg Tablet,Delayed Release (Dr/Ec) 81 mg PO DAILY 30 Days Qty: 30 0RF Referrals Follow up/Referrals: Eric Munguia MD [Staff Physician, Cardiology] - See instructions Provider,Referral, MD [Primary Care Provider, Medical] - See instructions Activity Restrictions/Add. Instructions Additional Instructions/Restrictions: Please follow-up with cardiology. Please return to the emergency department if you develop any new or worsening symptoms or become concerned for your health. Clinical Impressions Clinical Impression: Back pain, Chest pain Print Language Print Language: Panamanian Discharge ED Provider: Jostin Michaels General Adult HPI <Alisson Yonathan, DO - Last Filed: 03/25/25 00:12> General Chief complaint: Chest Pain Stated complaint: Chest Pain Time Seen by Provider: 03/24/25 21:39 History of Present Illness HPI narrative: Patient is a 54-year-old female who presented to the emergency department with chest pain. Patient states that she was recently admitted to the hospital for chest pain but left and has been having chest pain since that time. Patient states that her chest pain got acutely worse today. Patient states that the pain is in the center of her chest radiates into the left arm. Patient states that her pain is 15 out of 10. Patient states that she took her hydrocodone prior to arrival for her chronic back pain. But that did not alleviate her symptoms. Patient denies any shortness of breath. Patient denies any upper respiratory symptoms. Patient denies abdominal pain nausea vomiting or diarrhea. Related Data Home Medications ?Medication ?Instructions ?Recorded ?Confirmed promethazine 25 mg tablet 25 mg PO BIDP PRN Nausea And 07/24/24 03/10/25 Vomiting albuterol sulfate 90 mcg/actuation 1 inh inhalation Q6HP PRN 11/22/24 03/10/25 aerosol inhaler Shortness Of Breath albuterol sulfate 2.5 mg/3 mL 5 mg inhalation Q6HP PRN Shortness 03/10/25 03/10/25 (0.083 %) solution for nebulization Of Breath Or Wheezing benzonatate 100 mg capsule 100 mg PO TIDP PRN Cough 03/10/25 03/10/25 fenofibrate nanocrystallized 145 145 mg PO DAILY 03/10/25 03/10/25 mg tablet fluticasone propionate 50 1 spray intranasal BID 03/10/25 03/10/25 mcg/actuation nasal spray,suspension hydrocodone 10 mg-acetaminophen 1 tab PO Q8HP PRN Severe Pain 03/10/25 03/10/25 325 mg tablet (Scale Score 7-10) hydrocortisone-aloe vera 1 % 1 applic topical TIDP PRN skin 03/10/25 03/10/25 topical cream (Anti-Itch irritation (hydrocortisone) with Aloe) levothyroxine 25 mcg tablet 25 mcg PO DAILYDM 03/10/25 03/10/25 loperamide 2 mg capsule 6 mg PO BIDP PRN Diarrhea 03/10/25 03/10/25 meloxicam 7.5 mg tablet 7.5 mg PO BID 03/10/25 03/10/25 umeclidinium 62.5 mcg-vilanterol 1 inh inhalation DAILY 03/10/25 03/10/25 25 mcg/actuation powdr for inhalation (Anoro Ellipta) Previous Rx's ?Medication ?Instructions ?Recorded omeprazole 40 mg capsule,delayed 40 mg PO DAILY #90 caps 01/07/25 release aspirin 81 mg tablet,delayed 81 mg PO DAILY 30 days #30 tabs 03/12/25 release atorvastatin 40 mg tablet 80 mg (2 x 40 mg) PO HS 30 days 03/12/25 #60 tabs clonazepam 0.5 mg tablet (Klonopin) 0.5 mg PO BIDP PRN Anxiety 8 days 03/19/25 #16 tabs Allergies Allergy/AdvReac Type Severity Reaction Status Date / Time lidocaine Allergy Intermediate Red, Rash, Verified 02/27/25 09:50 Itching codeine (CODEINE) Allergy Unknown VOMITING Verified 02/27/25 09:50 erythromycin base Allergy Unknown ITCHING/HIV Verified 02/27/25 09:50 (ERYTHROMYCIN BASE) ES Penicillins (PENICILLINS) Allergy Unknown VOMITING Verified 02/27/25 09:50 ibuprofen Allergy Hives Verified 02/27/25 09:50 Iodinated Contrast Media Allergy Anaphylaxis Verified 03/11/25 14:21 tramadol AdvReac Hives Verified 02/27/25 09:50 PFSH <Alisson Mcmanus, DO - Last Filed: 03/25/25 00:12> [facility] Disclaimer: The information contained in this section may have been updated after the patient was seen, as this information can be updated by other users. Medical History (Updated 03/25/25 @ 01:28 by Jostin Michaels MD) Hyperlipidemia Chest pain Asthma Hypothyroid Anxiety disorder Chronically on benzodiazepine therapy Chronic, continuous use of opioids DJD (degenerative joint disease) of cervical spine Alcohol use disorder History of ovarian cancer Colon cancer LGSIL Pap smear of vagina Lumbar disc disease with radiculopathy Surgical History (Updated 03/16/25 @ 00:00 by Darshana Esquivel) History of cranial surgery Hx of neck surgery History of hysterectomy History of cholecystectomy Family History Other Anemia Asthma Cancer Coronary artery disease Diabetes Family history of bronchitis Family history of myocardial infarction Family history of stroke Heart attack Hyperlipidemia Hypertension Kidney disease Stroke Thyroid disorder Social History (Updated 03/10/25 @ 01:21 by Andria Perry RN) Smoking Status: Unknown if ever smoked second hand exposure: No alcohol intake: former substance use type: denies use current occupational status: disabled Travel in the last 8 weeks?: None household members: none housing: house lives independently: Yes marital status: single number of children: 3 education level: high school current occupational exposures/hazards: No caffeine: No special christopher needs: No agree to transfusion: No do you feel safe at home: Yes victim of physical abuse: No victim of emotional abuse: No victim of sexual abuse: No would you like helpful sources: No Have you lived/traveled outside [place] in past 30 days?: No Contact w/someone who lives/traveled outside [place] past 30 days?: No Exposure to someone with infectious disease in past 14 days?: No Do you have a fever (greater than 100.4 F or 38 C)?: No Have you tested positive for COVID-19?: No Exposed to someone with COVID-19 in past 14 days?: No Do you have a sore throat?: No Do you have a cough?: No Do you have any weakness?: No Do you have any diarrhea?: No Are you experiencing any unusual bleeding?: No Do you have any muscle aches/pain?: No Do you have any abdominal pain?: No Are you experiencing loss of taste or smell?: No Other Medical History Have you received the Flu Vaccine for this season: No Have you received the Pneumonia Vaccine: No <Alisson Mcmanus DO - Last Filed: 03/25/25 00:12> ROS Obtained: Yes All systems reviewed & no additional complaints except as documented and Yes Systems reviewed as appropriate & no additional complaints except as documented Physical Exam <Alisson Mcmanus DO - Last Filed: 03/25/25 00:12> General General appearance: alert and in no apparent distress Head Head exam: atraumatic, normocephalic and normal inspection Eye Eye exam: Present normal appearance, PERRL and EOMI; Absent scleral icterus ENT ENT exam: Present normal exam and normal external ear exam Neck Neck exam: Present normal inspection and full ROM Chest Chest inspection: Present normal inspection and symmetric chest wall rise Respiratory Respiratory exam: Present normal lung sounds bilaterally; Absent respiratory distress or wheezes Cardiovascular Cardiovascular exam: Present regular rate, normal rhythm and normal heart sounds Abdominal Exam Abdominal exam: Present soft and distention; Absent tenderness, guarding or rebound Extremities Exam Extremities exam: Present normal inspection and full ROM Back Exam Back exam: Present normal inspection and full ROM Neurological Exam Neurological exam: Present alert and oriented X3 Psychiatric Psychiatric exam: Present normal affect and normal mood Skin Skin exam: Present warm and dry Medical Decision Making <Alisson Mcmanus, DO - Last Filed: 03/25/25 00:12> Medical Records Medical records reviewed: Yes I reviewed the patient's medical records. Screening: Per USPSTF and CDC recommendations, given the prevalence of disease in our region, it is our hospital?s policy to screen for HIV and viral Hepatitis for all patients aged 18 and over and those with ongoing risk factors. [place] Inquiry Pt receiving controlled substance: No Vital Signs: 03/24/25 21:38 03/24/25 21:46 03/24/25 22:31 Temperature 98.3 F Temperature Source Oral Pulse Rate 88 82 Pulse Rate [Left] 86 Respiratory Rate 17 17 Blood Pressure 125/77 Blood Pressure [Right Arm] 141/106 H Blood Pressure Mean Blood Pressure Mean [Right Arm] 117 02 Sat by Pulse Oximetry 100 100 Oxygen Delivery Method Room Air 03/24/25 23:00 03/24/25 23:30 03/25/25 00:03 Temperature Temperature Source Pulse Rate 82 75 76 Pulse Rate [Left] Respiratory Rate 16 17 12 Blood Pressure 126/94 H 135/79 120/63 Blood Pressure [Right Arm] Blood Pressure Mean 99 107 Blood Pressure Mean [Right Arm] 02 Sat by Pulse Oximetry 98 98 98 Oxygen Delivery Method 03/25/25 00:30 03/25/25 01:00 Temperature Temperature Source Pulse Rate 74 73 Pulse Rate [Left] Respiratory Rate 13 19 Blood Pressure 120/67 122/68 Blood Pressure [Right Arm] Blood Pressure Mean 81 86 Blood Pressure Mean [Right Arm] 02 Sat by Pulse Oximetry 98 99 Oxygen Delivery Method Lab Data Lab results reviewed: Yes I reviewed the patient's lab results. Lab Results 03/24/25 21:38: WBC 5.8, RBC 3.86 L, Hgb 11.6 L, Hct 35.5 L, MCV 92.0, MCH 30.1, MCHC 32.7, RDW 15.7, Plt Count 392, MPV 9.2, Neut % (Auto) 36.2 L, Lymph % (Auto) 56.8 H, [place] % (Auto) 5.3, Eos % (Auto) 1.0, Baso % (Auto) 0.5, Neut # (Auto) 2.1, Lymph # (Auto) 3.3, [place] # (Auto) 0.3, Eos # (Auto) 0.1, Baso # (Auto) 0.0, D-Dimer 0.71 H, Sodium 137, Potassium 3.9, Chloride 99, Carbon Dioxide 25, Anion Gap 16.9 H, BUN 4 L, Creatinine 0.60, Estimated Creat Clear 109, Estimated GFR 105, Est GFR ( Amer) 127, Glucose 83, Calcium 9.8, Total Bilirubin 0.6, AST 59 H, ALT 31, Alkaline Phosphatase 93, Troponin I < 0.01, Total Protein 8.2, Albumin 4.8, Globulin 3.4 H, Albumin/Globulin Ratio 1.4, Lipase 48, Plasma/Serum Alcohol 161 H 03/25/25 00:33: Troponin I < 0.01 03/24/25 21:38 03/24/25 21:38 Orders (Tests/Meds): ED MEDICATIONS Discontinued Medications Generic Name Dose Route Start Last Admin Trade Name Mikeq PRN Reason Stop Dose Admin Hydrocodone Bitart/Acetaminophen 1 tab 03/25/25 00:34 03/25/25 00:38 Apap/Hydrocodone 325mg/7.5mg Tab PO 03/25/25 00:35 1 tab ONCE ONE Administration Aspirin 325 mg 03/24/25 22:08 03/24/25 22:16 Aspirin 325mg Tablet PO 03/24/25 22:09 325 mg ONCE ONE Administration Morphine Sulfate 4 mg 03/24/25 23:06 03/24/25 23:20 Morphine 4mg/Ml Syringe IV 03/24/25 23:07 4 mg ONCE ONE Administration Ondansetron HCl 4 mg 08/31/25 23:06 03/24/25 23:19 Ondansetron 4mg/2ml Vial IV 03/24/25 23:07 4 mg ONCE ONE Administration ORDERS Category Date Time Status XR chest portable Stat Exams 03/24/25 21:53 Completed Complete Blood Count Auto Diff Stat Lab 03/24/25 21:38 Completed Comprehensive Metabolic Panel Stat Lab 03/24/25 21:38 Completed D-Dimer Stat Lab 03/24/25 21:38 Completed Ethyl Alcohol Stat Lab 03/24/25 21:38 Completed Lipase Stat Lab 03/24/25 21:38 Completed Troponin I Q3H Lab 03/25/25 00:33 Completed Troponin I Q3H Lab 03/25/25 04:00 Ordered Troponin I Stat Lab 03/24/25 21:38 Completed Medical Decision Narrative: Patient is an otherwise healthy 54-year-old female who presented to the emergency department with chest pain. On arrival, patient was hemodynamically stable with unremarkable vital signs. Differential includes but not limited to: ACS/MD, pulmonary embolism, pneumonia, costochondritis, pleural effusion, pneumothorax, amongst others. Patient's labs were reviewed and interpreted by myself and showed: CBC with no leukocytosis, hemoglobin was stable. CMP was unremarkable. D-dimer mildly elevated at 0.71. Lipase normal. Initial troponin less than 0.01. X-ray was reviewed and interpreted by myself and showed no acute focal consolidation, pneumothorax, pleural effusion or other acute cardiopulmonary process. EKG was reviewed and interpreted by myself and showed normal sinus rhythm without acute ST or T wave changes concerning for ischemia. On chart review, patient was recently admitted to the hospital for unstable angina, cardiology wanted to cath the patient at that time however patient left to follow-up with a appointment in [place] and patient was supposed to be seen in clinic with cardiology but patient has not been seen in clinic. At this time pending second troponin and if normal likely discharge with outpatient cardiology follow-up as currently scheduled. Patient did have a mildly elevated D-dimer however per years criteria no concern for pulmonary embolism at this time. Heart score 3 Patient was signed out to Jostin Michaels pending repeat troponin and final disposition. <Jostin Michaels MD - Last Filed: 03/25/25 01:29> Vital Signs: 03/24/25 21:38 03/24/25 21:46 03/24/25 22:31 Temperature 98.3 F Temperature Source Oral Pulse Rate 88 82 Pulse Rate [Left] 86 Respiratory Rate 17 17 Blood Pressure 125/77 Blood Pressure [Right Arm] 141/106 H Blood Pressure Mean Blood Pressure Mean [Right Arm] 117 02 Sat by Pulse Oximetry 100 100 Oxygen Delivery Method Room Air 03/24/25 23:00 03/24/25 23:30 03/25/25 00:03 Temperature Temperature Source Pulse Rate 82 75 76 Pulse Rate [Left] Respiratory Rate 16 17 12 Blood Pressure 126/94 H 135/79 120/63 Blood Pressure [Right Arm] Blood Pressure Mean 99 107 Blood Pressure Mean [Right Arm] 02 Sat by Pulse Oximetry 98 98 98 Oxygen Delivery Method 03/25/25 00:30 03/25/25 01:00 Temperature Temperature Source Pulse Rate 74 73 Pulse Rate [Left] Respiratory Rate 13 19 Blood Pressure 120/67 122/68 Blood Pressure [Right Arm] Blood Pressure Mean 81 86 Blood Pressure Mean [Right Arm] 02 Sat by Pulse Oximetry 98 99 Oxygen Delivery Method Lab Data Lab Results 03/24/25 21:38: WBC 5.8, RBC 3.86 L, Hgb 11.6 L, Hct 35.5 L, MCV 92.0, MCH 30.1, MCHC 32.7, RDW 15.7, Plt Count 392, MPV 9.2, Neut % (Auto) 36.2 L, Lymph % (Auto) 56.8 H, [place] % (Auto) 5.3, Eos % (Auto) 1.0, Baso % (Auto) 0.5, Neut # (Auto) 2.1, Lymph # (Auto) 3.3, [place] # (Auto) 0.3, Eos # (Auto) 0.1, Baso # (Auto) 0.0, D-Dimer 0.71 H, Sodium 137, Potassium 3.9, Chloride 99, Carbon Dioxide 25, Anion Gap 16.9 H, BUN 4 L, Creatinine 0.60, Estimated Creat Clear 109, Estimated GFR 105, Est GFR ( Amer) 127, Glucose 83, Calcium 9.8, Total Bilirubin 0.6, AST 59 H, ALT 31, Alkaline Phosphatase 93, Troponin I < 0.01, Total Protein 8.2, Albumin 4.8, Globulin 3.4 H, Albumin/Globulin Ratio 1.4, Lipase 48, Plasma/Serum Alcohol 161 H 03/25/25 00:33: Troponin I < 0.01 Orders (Tests/Meds): ED MEDICATIONS Discontinued Medications Generic Name Dose Route Start Last Admin Trade Name Jody PRN Reason Stop Dose Admin Hydrocodone Bitart/Acetaminophen 1 tab 03/25/25 00:34 03/25/25 00:38 Apap/Hydrocodone 325mg/7.5mg Tab PO 03/25/25 00:35 1 tab ONCE ONE Administration Aspirin 325 mg 03/24/25 22:08 03/24/25 22:16 Aspirin 325mg Tablet PO 03/24/25 22:09 325 mg ONCE ONE Administration Morphine Sulfate 4 mg 03/24/25 23:06 03/24/25 23:20 Morphine 4mg/Ml Syringe IV 03/24/25 23:07 4 mg ONCE ONE Administration Ondansetron HCl 4 mg 03/24/25 23:06 03/24/25 23:19 Ondansetron 4mg/2ml Vial IV 03/24/25 23:07 4 mg ONCE ONE Administration ORDERS Category Date Time Status XR chest portable Stat Exams 03/24/25 21:53 Completed Complete Blood Count Auto Diff Stat Lab 03/24/25 21:38 Completed Comprehensive Metabolic Panel Stat Lab 03/24/25 21:38 Completed D-Dimer Stat Lab 03/24/25 21:38 Completed Ethyl Alcohol Stat Lab 03/24/25 21:38 Completed Lipase Stat Lab 03/24/25 21:38 Completed Troponin I Q3H Lab 03/25/25 00:33 Completed Troponin I Q3H Lab 03/25/25 04:00 Ordered Troponin I Stat Lab 03/24/25 21:38 Completed Medical Decision Narrative: Patient is an otherwise healthy 54-year-old female who presented to the emergency department with chest pain. On arrival, patient was hemodynamically stable with unremarkable vital signs. Differential includes but not limited to: ACS/MD, pulmonary embolism, pneumonia, costochondritis, pleural effusion, pneumothorax, amongst others. Patient's labs were reviewed and interpreted by myself and showed: CBC with no leukocytosis, hemoglobin was stable. CMP was unremarkable. D-dimer mildly elevated at 0.71. Lipase normal. Initial troponin less than 0.01. X-ray was reviewed and interpreted by myself and showed no acute focal consolidation, pneumothorax, pleural effusion or other acute cardiopulmonary process. EKG was reviewed and interpreted by myself and showed normal sinus rhythm without acute ST or T wave changes concerning for ischemia. On chart review, patient was recently admitted to the hospital for unstable angina, cardiology wanted to cath the patient at that time however patient left to follow-up with a appointment in [place] and patient was supposed to be seen in clinic with cardiology but patient has not been seen in clinic. At this time pending second troponin and if normal likely discharge with outpatient cardiology follow-up as currently scheduled. Patient did have a mildly elevated D-dimer however per years criteria no concern for pulmonary embolism at this time. Heart score 3 Patient was signed out to Jostin Michaels pending repeat troponin and final disposition. Brando COLMENARES: I assumed care of the patient at the time of handoff from the prior provider. On reassessment second troponin returned undetectably low. I had an interactive schedule patient regarding presentation. She feels comfortable with discharge to cardiology clinic follow-up. Would prefer to be follow-up on . She is given strict return precautions. patient discharged in stable condition. Critical Care <Alisson Mcmanus, DO - Last Filed: 03/25/25 00:12> Critical Care Time Critical Care Time: No
--- OUTSIDE RECORDS SUMMARY | 2025-03-24 21:39 | XMS_ITS | Encounter Summary ---
Author Organization [facility] Address [address] [place] [address] Care Team Providers Care Auto Self Service Station Attendant Name Role Phone Xavier Esposito MD Primary Care Provider + Reason for Visit * Reason Onset Date Comments Advice Only 02/28/2025 Encounter Details Date Type Department Care Team (Late st Contact Info) Description 02/28/2025 Telephone [facility] [address] [place] [address] Xavier Esposito MD [address] [place] [address] Advice Only Social History Tobacco [...] stated that she was not going to [facility] and didn't have a way to get [...] WANT TO GO TO [facility], I OFFERED A APPOINTMENT WITH [facility] BUT SHE WOULD LIKE TO TALK WITH SOMEONE TO SEE WHAT THEY ADVISE HER TO DO. documented in this encounter Plan of Treatment Upcoming Encounters Date Type Department Care Team (Late st Contact Info) Description 04/08/2025 11:45 AM EDT Office Visit [facility] [address] [place] [address] Xavier Esposito MD [address] [place] [address] documented as of this encounter Visit Diagnoses Not on filedocumented in this encounter Care Teams Auto Self Service Station Attendant Relationship Specialty Start Date End Date Xavier Esposito MD [address] [place] [address] PCP - General Family Medicine 09/24/24 documented as of this encounter
--- OUTSIDE RECORDS SUMMARY | 2025-03-24 21:39 | XMS_ITS | Encounter Summary ---
Author Organization [facility] Address [address] [place] [address] Care Team Providers Care Local City Driver Name Role Phone Perry Hicks MD Primary Care Provider + [phone] Renard Garcia MD Unavailable [phone] Yohana Aragon DO Unavailable [phone] Yvette Velarde SURVEY RESEARCH TEACHER Unavailable [phone] Pcp, No Primary Care Provider Unavailabl e Carolina Aquino REPAIR COIL WINDER Unavailable Unavailable Pcp, No Primary Care Provider Unavailabl e Encounter Details Date Type Department Care Team (Late st Contact Info) Description 11/01/2022 Lab Requisition [facility] [address] [place] [address] Santiago England MD [address] [facility] [address] [place] [address] Atypical squamous cells of undetermined significance on [...] 11:21 AM EDT) Case Report Cytology Case: [id number] Authorizing Provider: Santiago England MD Collected: 11/01/20221120 Ordering Location: [facility] Lab Received: 11/01/2022 112 Pathologist: Alayna Vaca MD Specimen: Vaginal, [id number] 11/02/2022 11:55 AM EDT [facility] Final Diagnosis A. VAGINAL PAP SMEAR (OUTSIDE CASE [id number], COLLECTED 08/25/2022) - LOW GRADE SQUAMOUS INTRAEPITHELIAL LESION (LSIL), SEE COMMENT. 11/02/2022 11:55 AM EDT [facility] at 1155 EDT Comment Refer to surgical case [id number] for subsequent biopsy results. 11/02/2022 11:55 AM EDT [facility] Clinical Information R87.610 - Atypical squamous cells of undetermined significance on cytologic smear of cervix (ASC-US) [ICD-10-CM] 11/02/2022 11:55 AM EDT [facility] Gross Description A. [id number] For clinical data and diagnosis (LSIL) for this specimen ([id number]) see final report issued by [facility] Pathology Department. 11/02/2022 11:55 AM EDT [facility] Vaginal structure / Unknown 11/01/2022 11:21 AM EDT 11/01/2022 11:22 AM EDT us Santiago England MD LAB PATHOLOGY ORDERABLES Final Result [facility] [address] [place] [address] documented in this encounter Visit Diagnoses Diagnosis [...] documented as of this encounter Care Teams Local City Driver Relationship Specialty Start Date End Date Perry Hicks MD [address] [place] [address] PCP - General 12/05/20 11/09/23 Pcp, No [address] [place] [address] PCP - General Family Medicine 11/10/23 01/28/25 Pcp, No [address] [place] [address] PCP - General Family Medicine 01/29/25 Renard Garcia MD [address] [place] [address] Surgeon Neurosurgery 11/25/21 Yohana Aragon DO [address] [place] [address] Obstetrics and Gynecology 10/22/22 Yvette Velarde APRN [address] [place] [address] Nurse Practitioner Neurosurgery 11/10/23 Carolina Aquino LPN VALUE-BASED [place] [address] TCM Nurse 09/13/24 10/12/24 documented as of this encounter
--- OUTSIDE RECORDS SUMMARY | 2025-03-24 21:39 | XMS_ITS | Encounter Summary ---
Author Organization [facility] Address [address] [place] [address] Care Team Providers Care Shearer Operator Name Role Phone Xavier Esposito MD Primary Care Provider + Reason for Visit * Reason Onset Date Comments Med Refill 03/05/2025 Encounter Details Date Type Department Care Team (Late st Contact Info) Description 03/05/2025 Refill [facility] [address] [place] [address] Xavier Esposito MD [address] [place] [address] Social History Tobacco Use Types [...] Kamara Relationship: Self Best call back number: [phone] Requested Prescriptions: Requested Prescriptions Pending Prescriptions Disp Refills promethazine (PHENERGAN) 25 MG tablet HYDROCODONE Pharmacy where request should be sent: [facility] - [place] [address] [address] - [phone] - [phone] FX Last office visit with prescribing clinician: [...] [facility] [address] [place] [address] Xavier Esposito MD [address] [place] [address] documented as of this encounter Visit Diagnoses Not on filedocumented in this encounter Care Teams Shearer Operator Relationship Specialty Start Date End Date Xavier Esposito MD [address] [place] [address] PCP - General Family Medicine 09/24/24 documented as of this encounter
--- OUTSIDE RECORDS SUMMARY | 2025-03-24 21:39 | XMS_ITS | Encounter Summary ---
Author Organization [facility] Address [address] [place] [address] Care Team Providers Care Legal Administrative Secretary Name Role Phone Perry Hicks MD Primary Care Provider + [phone] Renard Garcia MD Unavailable [phone] Yohana Aragon DO Unavailable [phone] Yvette Velarde WELDER OXYHYDROGEN Unavailable [phone] Pcp, No Primary Care Provider Unavailabl e Carolina Aquino LOAN OPERATIONS MANAGER Unavailable Unavailable Pcp, No Primary Care Provider Unavailabl e Encounter Details Date Type Department Care Team (Late st Contact Info) Description 11/01/2022 Lab Requisition [facility] [address] [place] [address] Santiago England MD 800 [facility] [address] [place] [address] Atypical squamous cells of undetermined significance on [...] EDT) Case Report Sug[facility] Pathology Consult Case: [id number] Authorizing Provider: Santiago England MD Collected: 11/01/2022 1243 Ordering Location: [facility] Lab Received: 11/01/2022 1243 Pathologist: Namrata Travis MD Specimen: Vaginal, [id number] 11/04/2022 9:18 AM EDT [facility] Final Diagnosis A. VAGINAL CUFF, 3:00 AND 9:00, BIOPSIES (OUTSIDE SLIDES [id number], 10/06/22): - FRAGMENTS OF PREDOMINANTLY CERVICAL STROMA WITH MINUTE FRAGMENTS OF CAUTERIZED SQUAMOUS EPITHELIUM - NO EVIDENCE OF HIGH GRADE DYSPLASIA OR CARCINOMA 11/04/2022 9:18 AM EDT [facility] at 0918 EDT Comment There is minimal intact epithelium available for review. Therefore these findings may not be labor representative of the mucosal process. Clinical correlation, with potential rebiopsy, is suggested. 11/04/2022 9:18 AM EDT [facility] Clinical Information R87.610 - Atypical squamous cells of undetermined significance on cytologic smear of cervix (ASC-US) [ICD-10-CM] 11/04/2022 9:18 AM EDT [facility] Gross Description A. [id number] Received along with a corresponding pathology report from [facility] are 2 slide(s) labeled outside case: [id number] collected on 10/06/2022. 11/04/2022 9:18 AM EDT [facility] Note: A resident was involved in the service. I attest I examined the relevant preparations for the specimens and confirmed the diagnosis or interpretation. 11/04/2022 9:18 AM EDT [facility] Tissue Vaginal structure / Unknown 11/01/2022 12:43 PM EDT 11/01/2022 12:43 PM EDT us Santiago England MD LAB PATHOLOGY ORDERABLES Final Result [facility] [address] [place] [address] documented in this encounter Visit Diagnoses Diagnosis [...] documented as of this encounter Care Teams Legal Administrative Secretary Relationship Specialty Start Date End Date Perry Hicks MD [address] [place] [address] PCP - General 12/05/20 11/09/23 Pcp, No [address] [place] [address] PCP - General Family Medicine 11/10/23 01/28/25 Pcp, No [address] [place] [address] PCP - General Family Medicine 01/29/25 Renard Garcia MD [address] [facility] [place] [address] Surgeon Neurosurgery 11/25/21 Yohana Aragon DO [address] [place] [address] Obstetrics and Gynecology 10/22/22 Yvette Velarde APRN [address] [place] [address] Nurse Practitioner Neurosurgery 11/10/23 Carolina Aquino LPN VALUE[employer] [place] [address] TCM Nurse 09/13/24 10/12/24 documented as of this encounter
--- OUTSIDE RECORDS SUMMARY | 2025-03-24 21:39 | XMS_ITS | Encounter Summary ---
Author Organization Healthcare Address [address] [place] [address] Care Team Providers Care Retail Account Specialist Name Role Phone Renard Garcia MD Unavailable [phone] Yohana Aragon DO Unavailable [phone] Yvette Velarde ACCREDITATION SPECIALIST Unavailable [phone] Pcp, No Primary Care Provider Unavailabl e [...] documented as of this encounter Care Teams Retail Account Specialist Relationship Specialty Start Date End Date Pcp, [place] [address] PCP - General Family Medicine 01/29/25 Renard Garcia MD [address] [facility] [address] [place] [address] Surgeon Neurosurgery 11/25/21 Yohana Aragon DO [address] [place] [address] Obstetrics and Gynecology 10/22/22 Yvette Velarde APRN [address] [facility] [address] [place] [address] Nurse Practitioner Neurosurgery 11/10/23 documented as of this encounter
--- OUTSIDE RECORDS SUMMARY | 2025-03-24 21:39 | XMS_ITS | Clinical Summary ---
Author Organization Healthcare Address [address] [place] [address] Care Team Providers Care Sheet Rocker Name Role Phone Renard Garcia MD Unavailable [phone] Yohana Aragon DO Unavailable [phone] Yvette Velarde NANOSYSTEMS ENGINEER Unavailable [phone] Pcp, No Primary Care Provider Unavailabl e [...] needed for irritation. 5 Active HYDROcodone-errol taminophen ([place]) 10-325 MG tablet Take 1 tablet (10 [...] (11/25/2021): Added automatically from request for surgery [id number] Encounters Date Type Department Care Team Description 01/29/2025 12:34 AM EDT - 01/29/2025 5:56 AM EDT Emergency [facility] Emergency Department [address] [place] [address] Jose Luis Tolbert DO Acute pain of [...] Hep B Twinrix 3-dose series) 08/08/2018 07/11/2018 [id number] Vaccine (2 - Pfizer risk series) 04/27/2021 [...] this topic Medical Devices Implanted Type Area Flatwork Tier Device Identifier Shelf Expiration Date Model / Serial / Lot One Level Plate, 12mm - [id number] Implanted:Qty : 1 on 11/28/2021 by Renard Garcia MD at [facility] Plate Spine Cervical [id number] 11/28/2022 [id number] / / Self Drilling Screw 14mm - [id number] Implanted:Qty : 2 on 11/28/2021 by Renard Garcia MD at [facility] Screw Spine Cervical [id number] 11/28/2022 [id number] / / Large Diameter 14mm - [id number] Implanted:Qty : 2 on 11/28/2021 by Renard Garcia MD at [facility] Screw Spine Cervical [id number] 11/28/2022 [id number] / / Nut Retainer - [id number] Implanted:Qty : 2 on 11/28/2021 by Renard Garcia MD at [facility] Washer Spine Cervical [employer] [id number] 11/28/2022 [id number] / / Knee Vanguard1 Cervical Preservon 7mm - [id number] - [id number] Implanted:Qty : 1 on 11/28/2021 by Renard Garcia MD at [facility][id number] 07/05/2026 [id number] / [id number] / [id number] Graft Vivigen 1cc - [id number] - [id number] Implanted:Qty : 1 on 11/28/2021 by Renard Garcia MD at [facility]ervical [facility]-[id number] 11/18/2022 [id number] / [id number] / [id number] Procedures Procedure Name Priority Date/Time Associated Diagnosis [...] <6 <14 ng/L 01/29/2025 3:30 AM EDT [facility] Troponin Delta Interpretation Not Calculated 01/29/2025 3:30 AM EDT [facility] Comment:Specimen not collect ed within acceptable timeframe. Delta will not be calculated. Blood Venous blood specimen / Unknown Venipuncture / Unknown 01/29/2025 2:45 AM EDT 01/29/2025 3:00 AM EDT Jose Luis Aviles [facility] LAB BLOOD ORDERABLES Final R esult [facility] [address] [place] [address] * XR Shoulder Right 2+ Views (01/29/2025 [...] 1/2 Differentiation (01/29/2025 12:49 AM EDT) Pathologist [facility] HIV 1 & 2 Antibody/Antigen Screen Non Reactive Non Reactive 01/29/2025 1:41 AM EDT [facility] Comment:Screening for HIV 1 & 2 antibodies, and P24 antigen is NONREACTIVE. No confirmatory testing is required. Blood Venous blood specimen / Unknown Venipuncture / Unknown 01/29/2025 12:49 AM EDT 01/29/2025 1:01 AM EDT us Jose Luis Tolbert DO LAB BLOOD ORDERABLES Final R esult [facility] [address] [place] [address] * Troponin now and 120 min (01/29/2025 12:49 AM EDT) Troponin T, High Sensitivity, 0 Hour <6 <14 ng/L 01/29/2025 1:26 AM EDT [facility] Blood Venous blood specimen / Unknown Venipuncture / Unknown 01/29/2025 12:49 AM EDT 01/29/2025 12:57 AM EDT Jose Luis Tolbert DO LAB BLOOD ORDERABLES Final R esult [facility] [address] [place] [address] * (ABNORMAL) CBC with Diff (01/29/2025 12:49 AM EDT) WBC Count 5.63 3.70 - 10.30 10*3/uL LAB HEMATOLOGY METHOD 01/29/2025 1:01 AM EDT [facility] RBC Count 3.82(L) 3.90 - 5.20 10*6/uL LAB HEMATOLOGY METHOD 01/29/2025 1:01 AM EDT [facility] HGB 11.5 11.2 - 15.7 g/dL LAB HEMATOLOGY METHOD 01/29/2025 1:01 AM EDT [facility] HCT 34.1 34.0 - 45.0 % LAB HEMATOLOGY METHOD 01/29/2025 1:01 AM EDT [facility] Platelet Count 324 155 - 369 10*3/uL LAB HEMATOLOGY METHOD 01/29/2025 1:01 AM EDT [facility] MCV 89 79 - 98 fL LAB HEMATOLOGY METHOD 01/29/2025 1:01 AM EDT [facility] MCH 30.1 26.0 - 32.0 pg LAB HEMATOLOGY METHOD 01/29/2025 1:01 AM EDT [facility] MCHC 33.7 30.7 - 35.5 g/dL LAB HEMATOLOGY METHOD 01/29/2025 1:01 AM EDT [facility] RDW 14.6(H) 11.5 - 14.5 % LAB HEMATOLOGY METHOD 01/29/2025 1:01 AM EDT [facility] MPV 8.8 8.8 - 12.5 fL LAB HEMATOLOGY METHOD 01/29/2025 1:01 AM EDT [facility] nRBC 0.0 <=0.0 per 100 WBCs LAB HEMATOLOGY METHOD 01/29/2025 1:01 AM EDT [facility] Differential Type Automated LAB HEMATOLOGY METHOD 01/29/2025 1:01 AM EDT [facility] Neutrophils % 32 % LAB HEMATOLOGY METHOD 01/29/2025 1:01 AM EDT [facility] Lymphocytes % 61 % LAB HEMATOLOGY METHOD 01/29/2025 1:01 AM EDT [facility] Monocytes % 6 % LAB HEMATOLOGY METHOD 01/29/2025 1:01 AM EDT [facility] Eosinophils % 1 % LAB HEMATOLOGY METHOD 01/29/2025 1:01 AM EDT [facility] Basophils % 0 % LAB HEMATOLOGY METHOD 01/29/2025 1:01 AM EDT [facility] Immature Granulocytes % 0 % LAB HEMATOLOGY METHOD 01/29/2025 1:01 AM EDT [facility] Neutrophils Absolute 1.82 1.60 - 6.10 10*3/uL LAB HEMATOLOGY METHOD 01/29/2025 1:01 AM EDT [facility] Lymphocytes Absolute 3.41 1.20 - 3.90 10*3/uL LAB HEMATOLOGY METHOD 01/29/2025 1:01 AM EDT [facility] Monocytes Absolute 0.31 0.30 - 0.90 10*3/uL LAB HEMATOLOGY METHOD 01/29/2025 1:01 AM EDT [facility] Eosinophils Absolute 0.07 0.00 - 0.50 10*3/uL LAB HEMATOLOGY METHOD 01/29/2025 1:01 AM EDT [facility] Basophils Absolute 0.01 0.00 - 0.10 10*3/uL LAB HEMATOLOGY METHOD 01/29/2025 1:01 AM EDT [facility] Immature Granulocytes Absolute 0.01 0.00 - 0.06 10*3/uL LAB HEMATOLOGY METHOD 01/29/2025 1:01 AM EDT [facility] Blood Venous blood specimen / Unknown Venipuncture / Unknown 01/29/2025 12:49 AM EDT 01/29/2025 12:57 AM EDT [facility] - 01/29/2025 1:01 AM EDT Therapeutic decision making should be based on absolute values, rather than percentages. us Jose Luis Tolbert DO LAB BLOOD ORDERABLES Final R esult [facility] [address] [place] [address] * (ABNORMAL) BMP (01/29/2025 12:49 AM EDT) Glucose, Plasma 77 74 - 99 mg/dL 01/29/2025 1:26 AM EDT [facility] BUN, Plasma 8 7 - 21 mg/dL 01/29/2025 1:26 AM EDT [facility] Creatinine, Plasma 0.67 0.60 - 1.10 mg/dL 01/29/2025 1:26 AM EDT [facility] BUN/Creatinine Ratio 12 01/29/2025 1:26 AM EDT [facility] Sodium, Plasma 133(L) 136 - 145 mmol/L 01/29/2025 1:26 AM EDT [facility] Potassium, Plasma 3.5(L) 3.6 - 4.9 mmol/L 01/29/2025 1:26 AM EDT [facility] Chloride, Plasma 97 97 - 107 mmol/L 01/29/2025 1:26 AM EDT [facility] CO2, Plasma 21(L) 22 - 29 mmol/L 01/29/2025 1:26 AM EDT [facility] Anion Gap 15 6 - 16 mmol/L 01/29/2025 1:26 AM EDT [facility] Total Calcium, Plasma 9.3 8.9 - 10.2 mg/dL 01/29/2025 1:26 AM EDT [facility] eGFRcr 104.7 mL/min/1.7 3m*2 01/29/2025 1:26 AM EDT [facility] Comment:Reported eGFRcr in m L/min/1.73m2 is based the CKD-EPI 2020 equation that does not use a race coefficient. Blood Venous blood specimen / Unknown Venipuncture / Unknown 01/29/2025 12:49 AM EDT 01/29/2025 12:57 AM EDT Jose Luis Tolbert DO LAB BLOOD ORDERABLES Final R esult [facility] [address] [place] [address] * EKG now - STAT (adult) (01/29/2025 12:27 AM EDT) EKG DIAGNOSIS CLASS Borderline Abnormal MUSE ECG Ventricular Rate 95 BPM MUSE ECG Atrial Rate 95 BPM MUSE ECG DC Interval 176 ms MUSE ECG QRSD Interval 80 ms MUSE ECG QT Interval 368 ms MUSE ECG QTC Interval 462 ms MUSE ECG P [place] 39 degrees MUSE ECG R [place] 37 degrees MUSE ECG T Wave [place] 48 degrees MUSE ECG Diagnosis Normal sinus [...] Antigen Negative Negative 09/07/2024 10:36 AM EST [facility] Hepatitis C Antibody Negative Negative 09/07/2024 10:36 AM EST [facility] Hepatitis A Antibody IgM Negative Negative 09/07/2024 10:36 AM EST [facility] Hepatitis B Core Antibody IgM Negative Negative 09/07/2024 10:36 AM EST [facility] Blood Venous blood specimen / Unknown Venipuncture / Unknown 09/07/2024 8:04 AM EST 09/07/2024 8:14 AM EST Manjit Whitt APRN, [facility] LAB BLOOD ORDERABLES Fi nal Result [facility] [address] [place] [address] from Last 3 Months or Most Recently Relevant to Health Maintenance Insurance [facility] MEDICAID Advance Directives * Full Code (Latest Code Status on File) Date Activated Date Inactivated Comments 09/07/2024 6:46 AM 09/12/2024 6:58 PM Question Answer Comments Patient has decision-making capacity? Yes Care Teams Sheet Rocker Relationship Specialty Start Date End Date Pcp, No [address] [place] [address] PCP - General Family Medicine 01/29/25 Renard Garcia MD [address] [facility] [place] [address] Surgeon Neurosurgery 11/25/21 Yohana Aragon DO [address] [place] [address] Obstetrics and Gynecology 10/22/22 Yvette Velarde APRN [address] [place] [address] Nurse Practitioner Neurosurgery 11/10/23
--- NOTE | 2025-03-24 21:40 | HMH.EDGENADL ---
Discharge Plan Prescriptions Prescriptions: No Action clonazepam [Klonopin] 0.5 mg tablet 0.5 mg PO BIDP PRN (Reason: Anxiety) 8 Days Qty: 16 0RF albuterol sulfate 90 mcg/actuation HFA aerosol inhaler 1 inh inhalation Q6HP PRN (Reason: Shortness Of Breath) omeprazole 40 mg capsule,delayed release(DR/EC) 40 mg PO DAILY Qty: 90 1RF promethazine 25 mg tablet 25 mg PO BIDP PRN (Reason: Nausea And Vomiting) benzonatate 100 mg capsule 100 mg PO TIDP PRN (Reason: Cough) Rx Instructions: TAKE 1 CAPSULE BY MOUTH 3 TIMES A DAY NEEDED FOR COUGH albuterol sulfate 2.5 mg /3 mL (0.083 %) solution for nebulization 5 mg inhalation Q6HP PRN (Reason: Shortness Of Breath Or Wheezing) Patient Comments: INHALE CONTENTS OF 2 VIALS VIA NEBULIZER EVERY 6 HOURS NEEDED FOR SHORTNESS OF BREATH OR WHEEZING umeclidinium-vilanterol [Anoro Ellipta] 62.5-25 mcg/actuation blister with device 1 inh INHALATION DAILY Patient Comments: INHALE 1 PUFF BY MOUTH ONCE A DAY meloxicam 7.5 mg tablet 7.5 mg PO BID Patient Comments: TAKE 1 TABLET BY MOUTH 2 TIMES A DAY fenofibrate nanocrystallized 145 mg tablet 145 mg PO DAILY Patient Comments: TAKE ONE TABLET BY MOUTH ONCE A DAY loperamide 2 mg capsule 6 mg PO BIDP PRN (Reason: Diarrhea) hydrocodone-acetaminophen 10-325 mg tablet 1 tab PO Q8HP PRN (Reason: Severe Pain (Scale Score 7-10)) levothyroxine 25 mcg tablet 25 mcg PO DAILYDM Rx Instructions: TAKE ONE TABLET BY MOUTH ONCE A DAY FOR THYROID hydrocortisone-aloe vera [Anti-Itch(hydrocortisone)-Aloe] 1 % cream 1 applic topical TIDP PRN (Reason: skin irritation) fluticasone propionate 50 mcg/actuation spray,suspension 1 spray INTRANASAL BID atorvastatin 40 mg Tablet 80 mg PO HS 30 Days Qty: 60 0RF aspirin 81 mg Tablet,Delayed Release (Dr/Ec) 81 mg PO DAILY 30 Days Qty: 30 0RF Referrals Follow up/Referrals: Provider,Referral, MD [Primary Care Provider, Medical] - See instructions Print Language Print Language: Japanese Discharge ED Provider: Alisson Mcmanus General Adult HPI General Stated complaint: Chest Pain Time Seen by Provider: 03/24/25 21:39 Related Data Home Medications ?Medication ?Instructions ?Recorded ?Confirmed promethazine 25 mg tablet 25 mg PO BIDP PRN Nausea And 07/24/24 03/10/25 Vomiting albuterol sulfate 90 mcg/actuation 1 inh inhalation Q6HP PRN 11/22/24 03/10/25 aerosol inhaler Shortness Of Breath albuterol sulfate 2.5 mg/3 mL 5 mg inhalation Q6HP PRN Shortness 03/10/25 03/10/25 (0.083 %) solution for nebulization Of Breath Or Wheezing benzonatate 100 mg capsule 100 mg PO TIDP PRN Cough 03/10/25 03/10/25 fenofibrate nanocrystallized 145 145 mg PO DAILY 03/10/25 03/10/25 mg tablet fluticasone propionate 50 1 spray intranasal BID 03/10/25 03/10/25 mcg/actuation nasal spray,suspension hydrocodone 10 mg-acetaminophen 1 tab PO Q8HP PRN Severe Pain 03/10/25 03/10/25 325 mg tablet (Scale Score 7-10) hydrocortisone-aloe vera 1 % 1 applic topical TIDP PRN skin 03/10/25 03/10/25 topical cream (Anti-Itch irritation (hydrocortisone) with Aloe) levothyroxine 25 mcg tablet 25 mcg PO DAILYDM 03/10/25 03/10/25 loperamide 2 mg capsule 6 mg PO BIDP PRN Diarrhea 03/10/25 03/10/25 meloxicam 7.5 mg tablet 7.5 mg PO BID 03/10/25 03/10/25 umeclidinium 62.5 mcg-vilanterol 1 inh inhalation DAILY 03/10/25 03/10/25 25 mcg/actuation powdr for inhalation (Anoro Ellipta) Previous Rx's ?Medication ?Instructions ?Recorded omeprazole 40 mg capsule,delayed 40 mg PO DAILY #90 caps 01/07/25 release aspirin 81 mg tablet,delayed 81 mg PO DAILY 30 days #30 tabs 03/12/25 release atorvastatin 40 mg tablet 80 mg (2 x 40 mg) PO HS 30 days 03/12/25 #60 tabs clonazepam 0.5 mg tablet (Klonopin) 0.5 mg PO BIDP PRN Anxiety 8 days 03/19/25 #16 tabs Allergies Allergy/AdvReac Type Severity Reaction Status Date / Time lidocaine Allergy Intermediate Red, Rash, Verified 02/27/25 09:50 Itching codeine (CODEINE) Allergy Unknown VOMITING Verified 02/27/25 09:50 erythromycin base Allergy Unknown ITCHING/HIV Verified 02/27/25 09:50 (ERYTHROMYCIN BASE) ES Penicillins (PENICILLINS) Allergy Unknown VOMITING Verified 02/27/25 09:50 ibuprofen Allergy Hives Verified 02/27/25 09:50 Iodinated Contrast Media Allergy Anaphylaxis Verified 03/11/25 14:21 tramadol AdvReac Hives Verified 02/27/25 09:50 PFSH PFS Disclaimer: The information contained in this section may have been updated after the patient was seen, as this information can be updated by other users. Medical History (Updated 03/16/25 @ 00:00 by Background Daemon) Hyperlipidemia Chest pain Asthma Hypothyroid Anxiety disorder Chronically on benzodiazepine therapy Chronic, continuous use of opioids DJD (degenerative joint disease) of cervical spine Alcohol use disorder History of ovarian cancer Colon cancer LGSIL Pap smear of vagina Lumbar disc disease with radiculopathy Surgical History (Updated 03/16/25 @ 00:00 by Background Daemon) History of cranial surgery Hx of neck surgery History of hysterectomy History of cholecystectomy Family History Other Anemia Asthma Cancer Coronary artery disease Diabetes Family history of bronchitis Family history of myocardial infarction Family history of stroke Heart attack Hyperlipidemia Hypertension Kidney disease Stroke Thyroid disorder Social History (Updated 03/10/25 @ 01:21 by Andria Perry RN) Smoking Status: Never smoker second hand exposure: No alcohol intake: former substance use type: denies use current occupational status: disabled Travel in the last 8 weeks?: None household members: none housing: house lives independently: Yes marital status: single number of children: 3 education level: high school current occupational exposures/hazards: No caffeine: No special christopher needs: No agree to transfusion: No do you feel safe at home: Yes victim of physical abuse: No victim of emotional abuse: No victim of sexual abuse: No would you like helpful sources: No Have you lived/traveled outside US in past 30 days?: No Contact w/someone who lives/traveled outside US past 30 days?: No Exposure to someone with infectious disease in past 14 days?: No Do you have a fever (greater than 100.4 F or 38 C)?: No Have you tested positive for COVID-19?: No Exposed to someone with COVID-19 in past 14 days?: No Do you have a sore throat?: No Do you have a cough?: No Do you have any weakness?: No Do you have any diarrhea?: No Are you experiencing any unusual bleeding?: No Do you have any muscle aches/pain?: No Do you have any abdominal pain?: No Are you experiencing loss of taste or smell?: No Other Medical History Have you received the Flu Vaccine for this season: No Have you received the Pneumonia Vaccine: No Medical Decision Making Medical Records Screening: Per USPSTF and CDC recommendations, given the prevalence of disease in our region, it is our hospital?s policy to screen for HIV and viral Hepatitis for all patients aged 18 and over and those with ongoing risk factors.
[2025-03-24 21:46] VITALS: PULSE 88
--- NOTE | 2025-03-24 21:53 | XR_ITS ---
PROCEDURE INFORMATION: Exam: XR Chest Exam date and time: 03/24/2025 10:08 PM Age: 54 years old Clinical indication: Other: Chest pain TECHNIQUE: Imaging protocol: Radiologic exam of the chest. Views: 1 view. COMPARISON: CR XR CHEST PORTABLE 03/09/2025 8:36 PM FINDINGS: Lungs: Unremarkable. No consolidation. Pleural spaces: Unremarkable. No pleural effusion. No pneumothorax. Heart/Mediastinum: Unremarkable. No cardiomegaly. Bones/joints: Unremarkable. IMPRESSION: No acute findings.
[2025-03-24 22:00] LABS: Hematocrit 35.5 % (37.0-47.0); Hemoglobin 11.6 g/dL (12.2-16.2); Immature Granulocytes % 0.2 %; Mean Corpuscular HGB Conc 32.7 g/dL (31.8-35.4); Mean Corpuscular Hemoglobin 30.1 pg (27.0-31.2); Mean Corpuscular Volume 92.0 fl (81-99); Nucleated Red Blood Cells % 0 %; Platelet Count 392 K/mm3 (142-424); Red Blood Count 3.86 M/mm3 (4.20-5.40); Red Cell Distribution Width-SD 52.6 fL; White Blood Count 5.8 K/mm3 (4.8-10.8)
[2025-03-24 22:07] LABS: Alanine Aminotransferase 31 U/L (12-78); Albumin Level 4.8 g/dl (3.5-5.0); Albumin/Globulin Ratio 1.4 (1.1-1.8); Alkaline Phosphatase 93 U/L (38-126); Anion Gap 16.9 mEq/L (5-15); Aspartate Amino Transferase 59 U/L (14-36); Bilirubin,Total 0.6 mg/dl (0.2-1.3); Blood Urea Nitrogen 4 mg/dl (7-17); Calcium 9.8 mg/dl (8.4-10.2); Carbon Dioxide 25 mmol/L (22.0-30.0); Chloride 99 mmol/L (98-107); Creatinine Clearance Estimated 109 mL/min (50-200); Creatinine,Serum 0.60 mg/dl (0.52-1.04); Estimated Glomerular Filt Rate 105 ml/min (>60); GFR (African American) 127 ML/MIN (>60); Globulin 3.4 g/dL (1.3-3.2); Glucose 83 mg/dl (74-100); Potassium 3.9 mmoL/L (3.5-5.1); Sodium 137 mmol/L (136-145); Total Protein,Serum 8.2 g/dl (6.3-8.2)
[2025-03-24 22:12] LABS: D-Dimer 0.71 ug/mL (0.0-0.5)
[2025-03-24] MEDS: ASPIRIN 325MG TABLET 325 MG PO (22:16)
[2025-03-24 22:23] LABS: Troponin I < 0.01 ng/ml (0.00-0.034)
[2025-03-24 22:29] LABS: Lipase 48 U/L (23-300)
--- NOTE | 2025-03-24 22:30 | HMH.ITSTN ---
Went to go get patient for the CT scan and pt stated she is allergic to Contrast Media and didn't want to have it. Provider notified @22:38
[2025-03-24 22:31] VITALS: BP 125/77; PULSE 82; RESP 17; O2SAT 100
[2025-03-24 23:00] VITALS: BP 126/94; PULSE 82; RESP 16; O2SAT 98
[2025-03-24] MEDS: ONDANSETRON 4MG/2ML VIAL 4 MG IV (23:19)
[2025-03-24] MEDS: MORPHINE 4MG/ML SYRINGE 4 MG IV (23:20)
[2025-03-24 23:30] VITALS: BP 135/79; PULSE 75; RESP 17; O2SAT 98
[2025-03-25 00:03] VITALS: BP 120/63; PULSE 76; RESP 12; O2SAT 98
[2025-03-25 00:30] VITALS: BP 120/67; PULSE 74; RESP 13; O2SAT 98
--- NOTE | 2025-03-25 00:34 | PC.NURSE ---
repeat trop drawn and sent to the lab
[2025-03-25] MEDS: APAP/HYDROCODONE 325MG/7.5MG TAB 1 TAB PO (00:38)
[2025-03-25 01:00] VITALS: BP 122/68; PULSE 73; RESP 19; O2SAT 99
[2025-03-25 01:03] LABS: Troponin I < 0.01 ng/ml (0.00-0.034)
--- NOTE | 2025-03-25 01:26 | PC.NURSE ---
Cardiology appointment made for 03/28/2025 at 0900. Card given to SHABBIR.
[2025-03-25 01:30] VITALS: BP 122/68; PULSE 69; RESP 11; TEMP 36.9; O2SAT 99
== END 2025-03-25 01:35 | disposition home or self-care (01) ==
PROVIDERS: Student in an Organized Health Care Education/Training Program; Emergency Provider Emergency Medicine
DX: R07.9 Chest pain, unspecified (principal); M54.9 Dorsalgia, unspecified
CPT/HCPCS: 71045; 80053; 80320; 83690; 84484; 85025; 85378; 93005; 96374; 96375; 99285; J2270; J2405

== ENCOUNTER 2025-03-29 22:22 | Emergency (ER) | payer MEDICAID, SELFPAY ==
--- OUTSIDE RECORDS SUMMARY | 2025-01-29 00:34 | XMS_ITS | Encounter Summary ---
Author Organization Healthcare Address [address] [place] [address] Care Team Providers Care Care Team Coordinator Scheduler Name Role Phone Renard Garcia MD Unavailable [phone] Yohana Aragon DO Unavailable [phone] Yvette Velarde SHEET METAL INSTALLER Unavailable [phone] Pcp, No Primary Care Provider Unavailabl e Reason for Visit * Reason Comments Multiple Complaints Encounter Details Date Type Department Care Team ([facility] st Contact Info) Description 01/29/2025 12:34 AM EDT - 01/29/2025 5:56 AM EDT Emergency [facility] Emergency Department [address] [place] [address] Jose Luis Tolbert, DO [address] [place] [address] Acute pain of left shoulder (Primary Dx); [...] ([place]) 145 MG tablet 08/08/2024 HYDROcodone-acet aminophen ([place]) 10-325 MG tablet Take 1 tablet (10 [...] Identification: Tonya Kamara 54 y.o. female CSN: [id number] Admission: 01/29/2025 12:34 AM Primary Problem: No Principal Problem: There is no principal problem currently on the Problem List.Please update the Problem List and refresh. JEZ received page from medical team that Patient needs transportation scheduled for discharge. Financial screening completed and meets 300% FPG. Pt agreed and signed consent. JEZ scheduled a Lyft to transport Pt to [address] [place] [address]. JEZ relayed canal driver's info and ETA to medical team. Zenaida Sharpe FOOD SERVICE HELPER, RUG CLEANER HAND ED Social Work * ED Provider Notes [...] alert. Psychiatric: Mood and Affect: Mood normal. Negro Coma Scale Score: 15 ED Course & [...] Dose Route Action 01/29/2025 0212 EDT HYDROcodone-acetaminophen ([place]) 5-325 MG per tablet 5 mg of [...] Continuous Order ID Start Status Ordering Provider [id number] 01/29/25 0040 Completed JOSE LUIS TOLBERT [id number] 01/29/25 0800 Acknowledged JOSE LUIS TOLBERT [id number] 07/08/25 2000 Acknowledged SERGIO JOSE LUIS B [...] concerned for your health. Disposition Discharge AVS (E[place]ian Snapshot) - Printed 01/29/2025 [1] Past Medical History: Diagnosis Date Awareness under anesthesia Back pain COPD (chronic obstructive pulmonary disease) ([facility]) Neck pain Personal history of other diseases [...] Date CHOLECYSTECTOMY HYSTERECTOMY Bilateral 2019 Hysterectomy from [facility] - [facility] BSO Enterocele repair for pelvic pain, endometriosis and fibroidper outside notes OTHER SURGICAL HISTORY N/A Uterine polypectomy from [facility] SPINE SURGERY WISDOM TOOTH EXTRACTION N/A [employer] tooth extraction from [employer] [3] Family History [...] <6 <14 ng/L 01/29/2025 3:30 AM EDT [facility] Troponin Delta Interpretation Not Calculated 01/29/2025 3:30 AM EDT [facility] Comment:Specimen not collect ed within acceptable timeframe. Delta will not be calculated. Blood Venous blood specimen / Unknown Venipuncture / Unknown 01/29/2025 2:45 AM EDT 01/29/2025 3:00 AM EDT us Jose Luis Tolbert DO LAB BLOOD ORDERABLES Final R esult [facility] [address] [place] [address] * XR Shoulder Right 2+ Views (01/29/2025 [...] HIV 1/2 Differentiation (01/29/2025 12:49 AM EDT) [facility] HIV 1 & 2 Antibody/Antigen Screen Non Reactive Non Reactive 01/29/2025 1:41 AM EDT [facility] Comment:Screening for HIV 1 & 2 antibodies, and P24 antigen is NONREACTIVE. No confirmatory testing is required. Blood Venous blood specimen / Unknown Venipuncture / Unknown 01/29/2025 12:49 AM EDT 01/29/2025 1:01 AM EDT Jose Luis Tolbert DO LAB BLOOD ORDERABLES Final R esult [facility] [address] [place] [address] * Troponin now and 120 min (01/29/2025 12:49 AM EDT) [facility] Troponin T, High Sensitivity, 0 Hour <6 <14 ng/L 01/29/2025 1:26 AM EDT [facility] Blood Venous blood specimen / Unknown Venipuncture / Unknown 01/29/2025 12:49 AM EDT 01/29/2025 12:57 AM EDT Jose Luis Aviles Grafton DO LAB BLOOD ORDERABLES Final R esult [facility] [address] [place] [address] * (ABNORMAL) BMP (01/29/2025 12:49 AM EDT) [facility] Glucose, Plasma 77 74 - 99 mg/dL 01/29/2025 1:26 AM EDT [facility] BUN, Plasma 8 7 - 21 mg/dL 01/29/2025 1:26 AM EDT [facility] Creatinine, Plasma 0.67 0.60 - 1.10 mg/dL 01/29/2025 1:26 AM EDT [facility] BUN/Creatinine Ratio 12 01/29/2025 1:26 AM EDT [facility] Sodium, Plasma 133(L) 136 - 145 mmol/L 01/29/2025 1:26 AM EDT [facility] Potassium, Plasma 3.5(L) 3.6 - 4.9 mmol/L 01/29/2025 1:26 AM EDT [facility] Chloride, Plasma 97 97 - 107 mmol/L 01/29/2025 1:26 AM EDT [facility] CO2, Plasma 21(L) 22 - 29 mmol/L 01/29/2025 1:26 AM EDT [facility] Anion Gap 15 6 - 16 mmol/L 01/29/2025 1:26 AM EDT [facility] Total Calcium, Plasma 9.3 8.9 - 10.2 mg/dL 01/29/2025 1:26 AM EDT [facility] eGFRcr 104.7 mL/min/1.7 3m*2 01/29/2025 1:26 AM EDT [facility] Comment:Reported eGFRcr in m L/min/1.73m2 is based the CKD-EPI 2020 equation that does not use a race coefficient. Blood Venous blood specimen / Unknown Venipuncture / Unknown 01/29/2025 12:49 AM EDT 01/29/2025 12:57 AM EDT Jose Luis Tolbert DO LAB BLOOD ORDERABLES Final R esult [facility] [address] [place] [address] * (ABNORMAL) CBC with Diff (01/29/2025 12:49 AM EDT) WBC Count 5.63 3.70 - 10.30 10*3/uL LAB HEMATOLOGY METHOD 01/29/2025 1:01 AM EDT [facility] RBC Count 3.82(L) 3.90 - 5.20 10*6/uL LAB HEMATOLOGY METHOD 01/29/2025 1:01 AM EDT [facility] HGB 11.5 11.2 - 15.7 g/dL LAB HEMATOLOGY METHOD 01/29/2025 1:01 AM EDT [facility] HCT 34.1 34.0 - 45.0 % LAB HEMATOLOGY METHOD 01/29/2025 1:01 AM EDT [facility] Platelet Count 324 155 - 369 10*3/uL LAB HEMATOLOGY METHOD 01/29/2025 1:01 AM EDT [facility] MCV 89 79 - 98 fL LAB HEMATOLOGY METHOD 01/29/2025 1:01 AM EDT [facility] MCH 30.1 26.0 - 32.0 pg LAB HEMATOLOGY METHOD 01/29/2025 1:01 AM EDT [facility] MCHC 33.7 30.7 - 35.5 g/dL LAB HEMATOLOGY METHOD 01/29/2025 1:01 AM EDT [facility] RDW 14.6(H) 11.5 - 14.5 % LAB HEMATOLOGY METHOD 01/29/2025 1:01 AM EDT [facility] MPV 8.8 8.8 - 12.5 fL LAB HEMATOLOGY METHOD 01/29/2025 1:01 AM EDT [facility] nRBC 0.0 <=0.0 per 100 WBCs LAB HEMATOLOGY METHOD 01/29/2025 1:01 AM EDT [facility] Differential Type Automated LAB HEMATOLOGY METHOD 01/29/2025 1:01 AM EDT [facility] Neutrophils % 32 % LAB HEMATOLOGY METHOD 01/29/2025 1:01 AM EDT [facility] Lymphocytes % 61 % LAB HEMATOLOGY METHOD 01/29/2025 1:01 AM EDT [facility] Monocytes % 6 % LAB HEMATOLOGY METHOD 01/29/2025 1:01 AM EDT [facility] Eosinophils % 1 % LAB HEMATOLOGY METHOD 01/29/2025 1:01 AM EDT [facility] Basophils % 0 % LAB HEMATOLOGY METHOD 01/29/2025 1:01 AM EDT [facility] Immature Granulocytes % 0 % LAB HEMATOLOGY METHOD 01/29/2025 1:01 AM EDT [facility] Neutrophils Absolute 1.82 1.60 - 6.10 10*3/uL LAB HEMATOLOGY METHOD 01/29/2025 1:01 AM EDT [facility] Lymphocytes Absolute 3.41 1.20 - 3.90 10*3/uL LAB HEMATOLOGY METHOD 01/29/2025 1:01 AM EDT [facility] Monocytes Absolute 0.31 0.30 - 0.90 10*3/uL LAB HEMATOLOGY METHOD 01/29/2025 1:01 AM EDT [facility] Eosinophils Absolute 0.07 0.00 - 0.50 10*3/uL LAB HEMATOLOGY METHOD 01/29/2025 1:01 AM EDT [facility] Basophils Absolute 0.01 0.00 - 0.10 10*3/uL LAB HEMATOLOGY METHOD 01/29/2025 1:01 AM EDT [facility] Immature Granulocytes Absolute 0.01 0.00 - 0.06 10*3/uL LAB HEMATOLOGY METHOD 01/29/2025 1:01 AM EDT [facility] Blood Venous blood specimen / Unknown Venipuncture / Unknown 01/29/2025 12:49 AM EDT 01/29/2025 12:57 AM EDT Narrative [facility] - 01/29/2025 1:01 AM EDT Therapeutic decision making should be based on absolute values, rather than percentages. us Jose Luis Tolbert DO LAB BLOOD ORDERABLES Final R esult [facility] [address] [place] [address] * EKG now - STAT (adult) (01/29/2025 12:27 AM EDT) EKG DIAGNOSIS CLASS Borderline Abnormal MUSE ECG Ventricular Rate 95 BPM MUSE ECG Atrial Rate 95 BPM MUSE ECG OK Interval 176 ms MUSE ECG QRSD Interval 80 ms MUSE ECG QT Interval 368 ms MUSE ECG QTC Interval 462 ms MUSE ECG P [place] 39 degrees MUSE ECG R [place] 37 degrees MUSE ECG T Wave [place] 48 degrees MUSE ECG Diagnosis Normal sinus [...] Action Date Dose Rate Site HYDROcodone-acetaminophe n ([place]) 5-325 MG per tablet 5 mg of [...] Scheduled Medication Order 01/27/2025 01/28/2025 01/29/2025 HYDROcodone-acetaminophen ([place]) 5-325 MG per tablet 5 mg of [...] documented as of this encounter Care Teams Care Team Coordinator Scheduler Relationship Specialty Start Date End Date Pcp, No [address] [place] [address] PCP - General Family Medicine 01/29/25 Renard Garcia MD [address] [place] [address] Surgeon Neurosurgery 11/25/21 Yohana Aragon DO [address] [place] [address] Obstetrics and Gynecology 10/22/22 Yvette Velarde APRN [address] [place] [address] Nurse Practitioner Neurosurgery 11/10/23 documented as of this encounter
--- OUTSIDE RECORDS SUMMARY | 2025-02-05 11:00 | XMS_ITS | Encounter Summary ---
[facility] Address [address] [place] [address] Care Team Providers Care Support Analyst Name Role Phone Xavier Esposito MD Primary Care Provider + Reason for Referral * Pain Management (Routine) - Authorized Specialty Diagnoses / Procedures Referred By Contac t Referred To Contact Pain Medicine Diagnoses Chronic neck and back pain Procedures ID OFFICE/OUTPATIENT NEW MODERATE MDM 45 MINUTES Xavier Esposito MD [address] [facility] [address] Phone: tel: fax: Nikita Chance II, MD [address] [place] [address] Phone: tel: fax: Referral ID Status Reason Start Date Expiration Date Visits Requested Visits Authorized [id number] Authorized Specialty Services Required 02/05/2025 05/07/2026 1 1 * Consultation (Routine) - Authorized Specialty Diagnoses / Procedures Referred By Contac t Referred To Contact Diagnoses Gastroesophageal reflux disease without esophagitis Esophageal dysmotility Polyp of colon, unspecified part of colon, unspecified type Procedures ID OFFICE/OUTPATIENT NEW MODERATE MDM 45 MINUTES Xavier Esposito MD [address] [place] [address] Phone: tel: fax: Tim Jimenez MD [address] [place] [id number] Phone: tel: fax: Referral ID Status Reason Start Date Expiration Date Visits Requested Visits Authorized Authorized Specialty Services Required 02/05/2025 05/07/2026 1 1 Scheduling Instructions Refer to Dr. Tim Jimenez * Consultation (Routine) - Closed Specialty Diagnoses / Procedures Referred By Contac t Referred To Contact Orthopedic Surgery Diagnoses Injury of right rotator cuff, subsequent encounter Xavier Esposito MD [address] [place] [address] Phone: tel: fax: Rod Au MD [facility] [place] [address] Phone: tel: fax: Referral ID Status Reason Start Date Expiration Date V isits Requested Visits Authorized Closed Specialty Services Required 02/05/2025 05/07/2026 1 1 Scheduling Instructions Refer to Dr. [facility] in [place] * Consultation (Routine) - Closed Specialty Diagnoses / Procedures Referred By Contac t Referred To Contact Pulmonary Disease Diagnoses Lung disease Dyspnea on exertion Procedures ID OFFICE/OUTPATIENT NEW MODERATE MDM 45 MINUTES Xavier Esposito MD [address] [place] [address] Phone: tel: fax: Albert Linares MD Referral ID Status Reason Start Date Expiration Date V isits Requested Visits Authorized Closed Specialty Services Required 02/05/2025 05/07/2026 1 1 Scheduling Instructions Refer to Dr. Albert Linares Reason for Visit * Reason Comments ER f/u [facility] Encounter Details Date Type Department Care Team (Late st Contact Info) Description 02/05/2025 11:00 AM EDT Office Visit [facility] [address] [facility] [place] [id number] Xavier Esposito MD [address] [facility] [place] [address] Lung disease (Primary Dx); Dyspnea on exertion; Non-smoker; Gastroesophageal reflux disease without esophagitis; Esophageal dysmotility; Anxiety about health; Polyp of colon, unspecified part of colon, unspecified type; Injury of right rotator cuff, subsequent encounter; Generalized anxiety disorder; Chronic neck and back pain Social History Tobacco Use Types Packs/Day Years Used Date Smoking Tobacco: Never Smokeless Tobacco: Current Snuff Alcohol Use Standard Drinks/Week Comments Yes 1 (1 standard drink = 0.6 oz pur e alcohol) occasional PHQ-2 Answer Date Recorded Patient Health Questionnaire-2 Score 0 02/05/2025 Comments Unknown Sex and Gender Information Value Date Recorded Sex Assigned at Not on file Legal Sex Female 1:23 PM EST Gender Identity Not on file Sexual Orientation Not on file documented as of this encounter Last Filed Vital Signs Vital Sign Reading Time Taken Comments Blood Pressure 148/90 02/05/2025 11:18 AM EDT Pulse 88 02/05/2025 11:18 AM EDT Temperature 36.8 C (98.2 F) 02/05/2025 11:18 AM EDT Respiratory Rate 20 02/05/2025 11:18 AM EDT Oxygen Saturation 99% 02/05/2025 11:18 AM EDT Inhaled Oxygen Concentration - - Weight 65 kg (143 lb 6.4 oz) 02/05/2025 11:18 AM EDT Height 162.6 cm (5' 4 ) 02/05/2025 11:18 AM EDT Body Mass Index 24.61 02/05/2025 11:18 AM EDT documented in this encounter Functional Status documented as of this encounter Progress Notes * Xavier Esposito MD - 02/05/2025 11:00 AM EDT Chief Complaint Patient presents with ER f/u [facility] Subjective Tonya Kamara is a 54 y.o. who presents for many concerns as follows: Shortness of breath. At previous PCP told the patient she had COPD. She has never smoked. She does not believe she has had pulmonary function tests although during past hospitalizations perform 6-minute walk test. She has inquired about supplemental oxygen although O2 sats are in the high 90s. Difficulty swallowing. Patient has been seen at the [facility] as well as at [facility] by geological e logger. Testing performed in August 2024 showed esophageal dysmotility and esophageal candidiasis. She reports a constant sensation of food and liquids being stuck inthe throat. She connects many of her swallowing problems due to past neck problems in 2021 that required surgery. Chronic pain. Patient has chronic neck and back pain for which she is previously on prescription opiates. At her last visit with me in September she was referred to Dr. Chance for chronic pain management.The patient had some difficulties with her phone and a an appointment was never scheduled. Since that time she has received prescriptions from other primary care providers in [place]. Right shoulder pain. Patient was seen at the [facility] 1 week ago after [place] on her right [place]. She believes the fall may have caused a rotator cuff tear. Anxiety. Patient is seeing psychiatric UNDER SHERIFF at [facility] who is prescribed the patient's clonazepam The following portions of the patient's history were reviewed and updated as appropriate: allergies, current medications, past family history, past medical history, past social history, past surgicalhistory, and problem list. Review of Systems Objective Vital Signs: BP 148/90 Pulse 88 Temp 98.2 ??F (36.8 ??C) Resp 20 Ht 162.6 cm (64 ) Wt 65 kg (143 lb 6.4 oz) SpO2 99% BMI 24.61 kg/m?? BMI is within normal parameters. No other follow-up for BMI required. Physical Exam Vitals reviewed. Constitutional: Comments: She is anxious HENT: Head: Normocephalic. Mouth/Throat: Mouth: Mucous membranes are moist. Cardiovascular: Rate and Rhythm: Normal rate and regular rhythm. Pulses: Normal pulses. Heart sounds: Normal heart sounds. Pulmonary: Effort: Pulmonary effort is normal. Breath sounds: Normal breath sounds. Abdominal: General: Abdomen is flat. Neurological: Mental Status: She is alert. Psychiatric: Mood and Affect: Mood is anxious. Speech: Speech is rapid and pressured and tangential. Behavior: Behavior is cooperative. Cognition and Memory: Memory is impaired. Result Review Attempt performed a walk test in office was unsuccessful as patient could only ambulate 30 feet before feeling too anxious to continue. O2 sats remained at 98% with a pulse rate in the mid 80s Assessment and Plan Diagnoses and all orders for this visit: 1. Lung disease (Primary) - Ambulatory Referral to Pulmonology 2. Dyspnea on exertion - Ambulatory Referral to Pulmonology 3. Non-smoker 4. Gastroesophageal reflux disease without esophagitis - Ambulatory Referral to Gastroenterology - omeprazole (priLOSEC) 40 MG capsule; Take 1 capsule by mouth Daily. Dispense: 30 capsule; Refill:1 5. Esophageal dysmotility - Ambulatory Referral to Gastroenterology 6. Anxiety about health 7. Polyp of colon, unspecified part of colon, unspecified type - Ambulatory Referral to Gastroenterology 8. Injury of right rotator cuff, subsequent encounter - Ambulatory Referral to Orthopedic Surgery 9. Generalized anxiety disorder 10. Chronic neck and back pain - Ambulatory Referral to Pain Management Plan 1. For patient's complaint of dyspnea I suspect she has acid reflux causing or contributing to lungdisease. Patient will be referred to local pulmonology for further assessment. She has never been asmoker so it is unlikely she has COPD. 2. Patient has swallowing difficulties, history of esophageal candidiasis, and GERD which I suspectis causing or contributing to lung disease. She also has a history of polyps. She will be referred to local gastroenterology for further assessment and interventions 3. For patient's chronic pain she will be referred to pain management again. She has been referred to Dr. Nikita Chance. In regards to the chronic pain I explained to the patient again today that I would not prescribe pain medication as I feel like this simply delays her follow-up and establishing care with a pain management physician. This applies to both her [place] and her gabapentin 4. Patient will be referred to local orthopedics for her right rotator cuff injury 5. Patient's anxiety is a significant contributor to her review of her health as well as control ofher chronic conditions exacerbating symptoms of dyspnea, exacerbating symptoms of pain. She should continue to see behavioral health at [facility] 6. Long discussion was had with the patient regarding the fractured nature of her care. This year alone she has seen 3 different primary care physicians, but goes to the emergency room at the [facility], all while living in [place]. I have recommended that she get established with NA care system to allow for better care. She will be moving to [place]. She will continue to come tothis office as her PCP but specialist referrals will be made within [facility] with the exception of her already established behavioral health DrMaritza And referral to an outside pain management physician as she has seen Dr. Austin previously I spent 40 minutes caring for Tonya on this date of service. This time includes time spent by me in the following activities:preparing for the visit, reviewing tests, performing a medically appropriate examination and/or evaluation , counseling and educating the patient/family/caregiver, ordering medications, tests, or procedures, and documenting information in the medical record Follow Up Return in about 2 months (around 04/08/2025) for Next scheduled follow up. Patient was given instructions and counseling regarding her condition or for health maintenance advice. Please see specific information pulled into the AVS if appropriate. documented in this encounter Plan of Treatment Upcoming Encounters Date Type Department Care Team (Late st Contact Info) Description 04/08/2025 11:45 AM EDT Office Visit [facility] [address] [place] [id number] Xavier Esposito MD [address] [place] [address] documented as of this encounter Visit Diagnoses Diagnosis Lung disease- Primary Other diseases of lung, not elsewhere classified Dyspnea on exertion Other dyspnea and respiratory abnormality Non-smoker Gastroesophageal reflux disease without esophagitis Esophageal reflux Esophageal dysmotility Dyskinesia of esophagus Anxiety about health Polyp of colon, unspecified part of colon, unspecified type Injury of right rotator cuff, subsequent encounter Generalized anxiety disorder Chronic neck and back pain documented in this encounter Care Teams Support Analyst Relationship Specialty Start Date End Date Xavier Esposito MD [address] [place] [address] PCP - General Family Medicine 09/24/24 documented as of this encounter
--- OUTSIDE RECORDS SUMMARY | 2025-03-29 22:27 | XMS_ITS | Encounter Summary ---
Author Organization Healthcare Address [address] [place] [address] Care Team Providers Care Scouring Train Operator Chief Name Role Phone Renard Garcia MD Unavailable [phone] Yohana Aragon DO Unavailable [phone] Yvette Velarde STRAW HAT BRUSHER Unavailable [phone] Pcp, No Primary Care Provider Unavailabl e [...] documented as of this encounter Care Teams Scouring Train Operator Chief Relationship Specialty Start Date End Date Pcp, [place] [address] PCP - General Family Medicine 01/29/25 Renard Garcia MD [address] [facility] [address] [place] [address] Surgeon Neurosurgery 11/25/21 Yohana Aragon DO [address] [place] [address] Obstetrics and Gynecology 10/22/22 Yvette Velarde APRN [address] [facility] [address] [place] [address] Nurse Practitioner Neurosurgery 11/10/23 documented as of this encounter
--- OUTSIDE RECORDS SUMMARY | 2025-03-29 22:27 | XMS_ITS | Encounter Summary ---
Author Organization [facility] Address [address] [place] [address] Care Team Providers Care Paper Cup Machine Operator Name Role Phone Xavier Esposito MD Primary Care Provider + Reason for Visit * Reason Onset Date Comments New Med Request 02/26/2025 Encounter Details Date Type Department Care Team (Late st Contact Info) Description 02/26/2025 Telephone [facility] FAMILY MEDICINE [address] [place] [address] Xavier Esposito MD [address] [place] [address] New Med Request Social History [...] your preferred pharmacy and phone number: [facility] [place] [place] - [address] [address] [address] - [phone] PH - [phone] FX [phone] Additional notes: PATIENT HAD BEEN SEEING PAIN [facility] [address] [place] [address] Xavier Esposito MD [address] [place] [address] documented as of this encounter Visit Diagnoses Not on filedocumented in this encounter Care Teams Paper Cup Machine Operator Relationship Specialty Start Date End Date Xavier Esposito MD [address] [place] [address] PCP - General Family Medicine 09/24/24 documented as of this encounter
--- OUTSIDE RECORDS SUMMARY | 2025-03-29 22:27 | XMS_ITS | Encounter Summary ---
Author Organization Healthcare Address [address] [place] [address] Care Team Providers Care Cat Dog Or Other Pet Groomer Name Role Phone Perry Hicks MD Primary Care Provider [phone] Renard Garcia MD Unavailable [phone] Yohana Aragon DO Unavailable [phone] Yvette Velarde FUNERAL HOME LOCATION MANAGER Unavailable [phone] Pcp, No Primary Care Provider Unavailabl e Carolina Aquino MAILROOM CLERK Unavailable Unavailable Pcp, No Primary Care Provider Unavailabl e Encounter Details Date Type Department Care Team (Late st Contact Info) Description 11/01/2022 Lab Requisition [facility] [address] [place] [address] Santiago England MD [address] [facility] [address] [place] [address] Atypical squamous cells of undetermined significance on [...] 11:21 AM EDT) Case Report Cytology Case: [id number] Authorizing Provider: Santiago England MD Collected: 11/01/20221120 Ordering Location: [facility] Lab Received: 11/01/2022 112 Pathologist: Alayna Vaca MD Specimen: Vaginal, [id number] 11/02/2022 11:55 AM EDT [facility] Final Diagnosis A. VAGINAL PAP SMEAR (OUTSIDE CASE [id number], COLLECTED 08/25/2022) - LOW GRADE SQUAMOUS INTRAEPITHELIAL LESION (LSIL), SEE COMMENT. 11/02/2022 11:55 AM EDT [facility] at 1155 EDT Comment Refer to surgical case [id number] for subsequent biopsy results. 11/02/2022 11:55 AM EDT [facility] Clinical Information R87.610 - Atypical squamous cells of undetermined significance on cytologic smear of cervix (ASC-US) [ICD-10-CM] 11/02/2022 11:55 AM EDT [facility] Gross Description A. [id number] For clinical data and diagnosis (LSIL) for this specimen ([id number]) see final report issued by [facility] Pathology Department. 11/02/2022 11:55 AM EDT [facility] Vaginal structure / Unknown 11/01/2022 11:21 AM EDT 11/01/2022 11:22 AM EDT us Santiago England MD LAB PATHOLOGY ORDERABLES Final Result [facility] [address] [place] [address] documented in this encounter Visit Diagnoses Diagnosis [...] documented as of this encounter Care Teams Cat Dog Or Other Pet Groomer Relationship Specialty Start Date End Date Perry Hicks MD [address] [place] [address] PCP - General 12/05/20 11/09/23 Pcp, No [address] [place] [address] PCP - General Family Medicine 11/10/23 01/28/25 Pcp, No [address] [place] [address] PCP - General Family Medicine 01/29/25 Renard Garcia MD [address] [place] [address] Surgeon Neurosurgery 11/25/21 Yohana Aragon DO [address] [place] [address] Obstetrics and Gynecology 10/22/22 Yvette Velarde APRN [address] [place] [address] Nurse Practitioner Neurosurgery 11/10/23 Carolina Aquino LPN VALUE-[employer]ED [place] [address] TCM Nurse 09/13/24 10/12/24 documented as of this encounter
--- OUTSIDE RECORDS SUMMARY | 2025-03-29 22:27 | XMS_ITS | Clinical Summary ---
Author Organization [facility] Address [address] [place] [address] Care Team Providers Care Gage Maker Name Role Phone Xavier Esposito MD [...] tablet 3 03/05/20 25 Discontinu ed(Reorder ) Active Problems Problem Noted Date Diagnosed Date Poor historian 09/24/2024 Abnormal electrocardiography 09/08/2023 Anxiety 09/08/2023 Atopic dermatitis 09/08/2023 Cervical strain 09/08/2023 CTS (carpal tunnel syndrome) 09/08/2023 Fatty liver 09/08/2023 GERD (gastroesophageal reflux disease) Assessment & Plan (09/08/2023 6:11 PM EST): Reports history of hiatal hernia, data deficient, currently maintaining symptom control on omeprazole [address]. Delaney of GI for concomitant abdominal pain and chronic diarrhea. Lumbar disc disease with radiculopathy Assessment & Plan (09/08/2023 6:17 PM EST): Recent CT of the L-spine in ER visit at [facility] revealing mild to moderate degenerative changes with mild L4 and L5 retrolisthesis which is stable, no acute abnormality. Referring to pain management for further evaluation, noting up until recently had been prescribed [place] 10 mg 4 times daily and gabapentin [...] Dr. Oswaldo Carrasquillo of general surgery in [place], patient indicating had 2 polyps left in [...] (09/08/2023 6:18 PM EST): Obtain records from [facility]. Keep [facility] follow-up. 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 Vaginal Pap smear with LGSIL 08/25/2022 Resolved Problems Problem Noted Date Diagnosed Date Resolved Date Chronic back pain 10/22/2022 09/08/2023 Cervical myelopathy 11/25/2021 09/08/19 24 Overview (09/06/2023): Added automatically from request for surgery [id number] Encounters Date Type Department Care Team Description 03/05/2025 Refill [facility]INE [address] [place] [address] Xavier Esposito MD 02/28/2025 [facility] FAMILY MEDICINE [address] [place] [address] Xavier Esposito MD Advice Only 02/26/2025 [facility] FAMILY MEDICINE [address] [address] Xavier Esposito MD New Med Request 02/26/2025 [facility] FAMILY MEDICINE [address] [place] [address] Xavier Esposito MD REFERRAL REQUEST 02/26/2025 Refill [facility] [address] [place] [address] Xavier Esposito MD Chronic obstructive pulmonary disease, unspecified COPD type 02/05/2025 11:00 AM EDT Office Visit [facility] [address] [place] [address] Xavier Esposito MD Lung disease (Primary Dx); [...] 04/08/2025 11:45 AM EDT Office Visit [facility] [address] [address] Xavier Esposito MD [address] [place] [address] Health Maintenance Due Date Last Done Comments Annual Gynecologic Pelvic and Breast Exam 1970 Pneumococcal Vaccine 50+ (1 of 2 - PCV) 11/15/1990 TDAP/TD VACCINES (1 - Tdap) 11/15/1990 ZOSTER VACCINE (1 of 2) 11/15/2021 ANNUAL PHYSICAL 09/01/2023 COVID-19 Vaccine (2 - season) 2024 INFLUENZA VACCINE 04/24/2025 MAMMOGRAM 05/25/2025 05/25/2023, 02/25/2023 HEPATITIS C SCREENING Completed 09/07/2024, 024 Procedures Procedure Name Priority Date/Time Associated Diagnosis Comments SCANNED - MAMMO 02/25/2023 from Last 3 Months or Most Recently Relevant to Health Maintenance Results * MAMMO Scan (02/25/2023) Anatomical Region Laterality Modality Other Peggy Khoury [facility] CHART REVIEW TABS Final Result from Last 3 Months or Most Recently Relevant to Health Maintenance Insurance [employer] Care Teams Gage Maker Relationship Specialty Start Date End Date Xavier Esposito MD [address] [place] [address] PCP - General Family Medicine 09/24/24
--- OUTSIDE RECORDS SUMMARY | 2025-03-29 22:27 | XMS_ITS | Encounter Summary ---
Author Organization [facility] Address [address] [place] [address] Care Team Providers Care Client Services Coordinator Name Role Phone Xavier Esposito MD Primary Care Provider + Reason for Visit * Reason Onset Date Comments REFERRAL REQUEST 02/26/2025 Encounter Details Date Type Department Care Team (Late st Contact Info) Description 02/26/2025 Telephone [facility] [address] [place] [address] Xavier Esposito MD [address] [place] [address] REFERRAL REQUEST Social History Tobacco [...] HAS SEEN MOST OF THE PROVIDERS IN [place] AND [facility]. I TOLD HER I WOULD TRY [...] 04/08/2025 11:45 AM EDT Office Visit [facility] [address] [place] [address] Xavier Esposito MD [address] [place] [address] documented as of this encounter Visit Diagnoses Not on filedocumented in this encounter Care Teams Client Services Coordinator Relationship Specialty Start Date End Date Xavier Esposito MD [address] [place] [address] PCP - General Family Medicine 09/24/24 documented as of this encounter
--- OUTSIDE RECORDS SUMMARY | 2025-03-29 22:27 | XMS_ITS | Encounter Summary ---
Author Organization [facility] Address [address] [place] [address] Care Team Providers Care Rn Ccu Name Role Phone Xavier Esposito MD Primary Care Provider + Reason for Visit * Reason Onset Date Comments Med Refill 03/05/2025 Encounter Details Date Type Department Care Team (Late st Contact Info) Description 03/05/2025 Refill [facility] MEDICINE [address] [place] [address] Xavier Esposito MD [address] [place] [address] Social History Tobacco Use Types [...] Kamara Relationship: Self Best call back number: [phone] Requested Prescriptions: Requested Prescriptions Pending Prescriptions Disp Refills promethazine (PHENERGAN) 25 MG tablet HYDROCODONE Pharmacy where request should be sent: [facility] [place] [address] [address] s - [phone] - [phone] FX Last office visit with prescribing clinician: [...] 04/08/2025 11:45 AM EDT Office Visit [facility] MEDICINE [address] [place] [phone] Xavier Esposito MD [address] [place] [address] documented as of this encounter Visit Diagnoses Not on filedocumented in this encounter Care Teams Rn Ccu Relationship Specialty Start Date End Date Xavier Esposito MD [address] [place] [address] PCP - General Family Medicine 09/24/24 documented as of this encounter
--- OUTSIDE RECORDS SUMMARY | 2025-03-29 22:27 | XMS_ITS | Encounter Summary ---
Author Organization [facility] Address [address] [place] [address] Care Team Providers Care Filteration Operator Name Role Phone Xavier Esposito MD [...] Description 04/08/2025 11:45 AM EDT Office Visit [facility] FAMILY MEDICINE [address] [place] [address] Xavier Esposito MD [address] [address] documented as of this encounter Visit Diagnoses Not on filedocumented in this encounter Care Teams Filteration Operator Relationship Specialty Start Date End Date Xavier Esposito MD [address] [address] PCP - General Family Medicine 09/24/24 documented as of this encounter
--- OUTSIDE RECORDS SUMMARY | 2025-03-29 22:27 | XMS_ITS | Clinical Summary ---
Author Organization Healthcare Address [address] [place] [address] Care Team Providers Care Human Resources Intern Name Role Phone Renard Garcia MD Unavailable [phone] Yohana Aragon DO Unavailable [phone] Yvette Velarde LIAISON PLANNER Unavailable [phone] Pcp, No Primary Care Provider Unavailabl e [...] needed for irritation. 5 Active HYDROcodone-errol taminophen ([facility]) 10-325 MG tablet Take 1 tablet (10 [...] (11/25/2021): Added automatically from request for surgery [id number] Encounters Date Type Department Care Team Description 01/29/2025 12:34 AM EDT - 01/29/2025 5:56 AM EDT Emergency [facility] Emergency Department [address] [place] [address] Jose Luis Tolbert DO Acute pain of [...] Hep B Twinrix 3-dose series) 08/08/2018 07/11/2018 [id number] Vaccine (2 - Pfizer risk series) 04/27/2021 [...] this topic Medical Devices Implanted Type Area Life Enrichment Director Device Identifier Shelf Expiration Date Model / Serial / Lot One Level Plate, 12mm - [id number] Implanted:Qty : 1 on 11/28/2021 by Renard Garcia MD at [facility] Plate Spine Cervical De[employer] [id number] 11/28/2022 [id number] / / Self Drilling Screw 14mm - [id number] Implanted:Qty : 2 on 11/28/2021 by Renard Garcia MD at [facility] Screw Spine Cervical [employer] [id number] 11/28/2022 [id number] / / Large Diameter 14mm - [id number] Implanted:Qty : 2 on 11/28/2021 by Renard Garcia MD at [facility] Screw Spine Cervical [employer]uy [employer] [id number] 11/28/2022 [id number] / / Nut Retainer - [id number] Implanted:Qty : 2 on 11/28/2021 by Renard Garcia MD at [facility] Washer Spine Cervical DePuy Spine [employer] [id number] 11/28/2022 [id number] / / Knee Vanguard1 Cervical Preservon 7mm - [id number] - [id number] Implanted:Qty : 1 on 11/28/2021 by Renard Garcia MD at [id number] 07/05/2026 [id number] / [id number] / [id number] Graft Vivigen 1cc - [id number] - [id number] Implanted:Qty : 1 on 11/28/2021 by Renard Garcia MD at [facility]ical [facility][id number] 11/18/2022 [id number] / [id number] / [id number] Procedures Procedure Name Priority Date/Time Associated Diagnosis [...] <6 <14 ng/L 01/29/2025 3:30 AM EDT [facility] Troponin Delta Interpretation Not Calculated 01/29/2025 3:30 AM EDT [facility] Comment:Specimen not collect ed within acceptable timeframe. Delta will not be calculated. Blood Venous blood specimen / Unknown Venipuncture / Unknown 01/29/2025 2:45 AM EDT 01/29/2025 3:00 AM EDT Jsoe Luis Aviles [facility] LAB BLOOD ORDERABLES Final R esult [facility] [address] [place] [address] * XR Shoulder Right 2+ Views (01/29/2025 [...] 1/2 Differentiation (01/29/2025 12:49 AM EDT) Pathologist [facility] HIV 1 & 2 Antibody/Antigen Screen Non Reactive Non Reactive 01/29/2025 1:41 AM EDT [facility] Comment:Screening for HIV 1 & 2 antibodies, and P24 antigen is NONREACTIVE. No confirmatory testing is required. Blood Venous blood specimen / Unknown Venipuncture / Unknown 01/29/2025 12:49 AM EDT 01/29/2025 1:01 AM EDT us Jose Luis Tolbert DO LAB BLOOD ORDERABLES Final R esult [facility] [address] [place] [address] * Troponin now and 120 min (01/29/2025 12:49 AM EDT) Troponin T, High Sensitivity, 0 Hour <6 <14 ng/L 01/29/2025 1:26 AM EDT [facility] Blood Venous blood specimen / Unknown Venipuncture / Unknown 01/29/2025 12:49 AM EDT 01/29/2025 12:57 AM EDT Jose Luis Tolbert DO LAB BLOOD ORDERABLES Final R esult [facility] [address] [place] [address] * (ABNORMAL) CBC with Diff (01/29/2025 12:49 AM EDT) WBC Count 5.63 3.70 - 10.30 10*3/uL LAB HEMATOLOGY METHOD 01/29/2025 1:01 AM EDT [facility] RBC Count 3.82(L) 3.90 - 5.20 10*6/uL LAB HEMATOLOGY METHOD 01/29/2025 1:01 AM EDT [facility] HGB 11.5 11.2 - 15.7 g/dL LAB HEMATOLOGY METHOD 01/29/2025 1:01 AM EDT [facility] HCT 34.1 34.0 - 45.0 % LAB HEMATOLOGY METHOD 01/29/2025 1:01 AM EDT [facility] Platelet Count 324 155 - 369 10*3/uL LAB HEMATOLOGY METHOD 01/29/2025 1:01 AM EDT [facility] MCV 89 79 - 98 fL LAB HEMATOLOGY METHOD 01/29/2025 1:01 AM EDT [facility] MCH 30.1 26.0 - 32.0 pg LAB HEMATOLOGY METHOD 01/29/2025 1:01 AM EDT [facility] MCHC 33.7 30.7 - 35.5 g/dL LAB HEMATOLOGY METHOD 01/29/2025 1:01 AM EDT [facility] RDW 14.6(H) 11.5 - 14.5 % LAB HEMATOLOGY METHOD 01/29/2025 1:01 AM EDT [facility] MPV 8.8 8.8 - 12.5 fL LAB HEMATOLOGY METHOD 01/29/2025 1:01 AM EDT [facility] nRBC 0.0 <=0.0 per 100 WBCs LAB HEMATOLOGY METHOD 01/29/2025 1:01 AM EDT [facility] Differential Type Automated LAB HEMATOLOGY METHOD 01/29/2025 1:01 AM EDT [facility] Neutrophils % 32 % LAB HEMATOLOGY METHOD 01/29/2025 1:01 AM EDT [facility] Lymphocytes % 61 % LAB HEMATOLOGY METHOD 01/29/2025 1:01 AM EDT [facility] Monocytes % 6 % LAB HEMATOLOGY METHOD 01/29/2025 1:01 AM EDT [facility] Eosinophils % 1 % LAB HEMATOLOGY METHOD 01/29/2025 1:01 AM EDT [facility] Basophils % 0 % LAB HEMATOLOGY METHOD 01/29/2025 1:01 AM EDT [facility] Immature Granulocytes % 0 % LAB HEMATOLOGY METHOD 01/29/2025 1:01 AM EDT [facility] Neutrophils Absolute 1.82 1.60 - 6.10 10*3/uL LAB HEMATOLOGY METHOD 01/29/2025 1:01 AM EDT [facility] Lymphocytes Absolute 3.41 1.20 - 3.90 10*3/uL LAB HEMATOLOGY METHOD 01/29/2025 1:01 AM EDT [facility] Monocytes Absolute 0.31 0.30 - 0.90 10*3/uL LAB HEMATOLOGY METHOD 01/29/2025 1:01 AM EDT [facility] Eosinophils Absolute 0.07 0.00 - 0.50 10*3/uL LAB HEMATOLOGY METHOD 01/29/2025 1:01 AM EDT [facility] Basophils Absolute 0.01 0.00 - 0.10 10*3/uL LAB HEMATOLOGY METHOD 01/29/2025 1:01 AM EDT [facility] Immature Granulocytes Absolute 0.01 0.00 - 0.06 10*3/uL LAB HEMATOLOGY METHOD 01/29/2025 1:01 AM EDT [facility] Blood Venous blood specimen / Unknown Venipuncture / Unknown 01/29/2025 12:49 AM EDT 01/29/2025 12:57 AM EDT [facility] - 01/29/2025 1:01 AM EDT Therapeutic decision making should be based on absolute values, rather than percentages. us Jose Luis Tolbert DO LAB BLOOD ORDERABLES Final R esult [facility] [address] [place] [address] * (ABNORMAL) BMP (01/29/2025 12:49 AM EDT) Glucose, Plasma 77 74 - 99 mg/dL 01/29/2025 1:26 AM EDT [facility] BUN, Plasma 8 7 - 21 mg/dL 01/29/2025 1:26 AM EDT [facility] Creatinine, Plasma 0.67 0.60 - 1.10 mg/dL 01/29/2025 1:26 AM EDT [facility] BUN/Creatinine Ratio 12 01/29/2025 1:26 AM EDT [facility] Sodium, Plasma 133(L) 136 - 145 mmol/L 01/29/2025 1:26 AM EDT [facility] Potassium, Plasma 3.5(L) 3.6 - 4.9 mmol/L 01/29/2025 1:26 AM EDT [facility] Chloride, Plasma 97 97 - 107 mmol/L 01/29/2025 1:26 AM EDT [facility] CO2, Plasma 21(L) 22 - 29 mmol/L 01/29/2025 1:26 AM EDT [facility] Anion Gap 15 6 - 16 mmol/L 01/29/2025 1:26 AM EDT [facility] Total Calcium, Plasma 9.3 8.9 - 10.2 mg/dL 01/29/2025 1:26 AM EDT [facility] eGFRcr 104.7 mL/min/1.7 3m*2 01/29/2025 1:26 AM EDT [facility] Comment:Reported eGFRcr in m L/min/1.73m2 is based the CKD-EPI 2020 equation that does not use a race coefficient. Blood Venous blood specimen / Unknown Venipuncture / Unknown 01/29/2025 12:49 AM EDT 01/29/2025 12:57 AM EDT Jose Luis Tolbert DO LAB BLOOD ORDERABLES Final R esult [facility] [address] [place] [address] * EKG now - STAT (adult) (01/29/2025 12:27 AM EDT) EKG DIAGNOSIS CLASS Borderline Abnormal MUSE ECG Ventricular Rate 95 BPM MUSE ECG Atrial Rate 95 BPM MUSE ECG MD Interval 176 ms MUSE ECG QRSD Interval 80 ms MUSE ECG QT Interval 368 ms MUSE ECG QTC Interval 462 ms MUSE ECG P [place] 39 degrees MUSE ECG R [place] 37 degrees MUSE ECG T [place] 48 degrees MUSE ECG Diagnosis Normal sinus [...] Antigen Negative Negative 09/07/2024 10:36 AM EST [facility] Hepatitis C Antibody Negative Negative 09/07/2024 10:36 AM EST [facility] Hepatitis A Antibody IgM Negative Negative 09/07/2024 10:36 AM EST [facility] Hepatitis B Core Antibody IgM Negative Negative 09/07/2024 10:36 AM EST [facility] Blood Venous blood specimen / Unknown Venipuncture / Unknown 09/07/2024 8:04 AM EST 09/07/2024 8:14 AM EST Manjit Whitt APRN, ALAN LAB BLOOD ORDERABLES Fi nal Result [facility] [address] [place] [address] from Last 3 Months or Most Recently Relevant to Health Maintenance Insurance [facility] MEDICAID Advance Directives * Full Code (Latest Code Status on File) Date Activated Date Inactivated Comments 09/07/2024 6:46 AM 09/12/2024 6:58 PM Question Answer Comments Patient has decision-making capacity? Yes Care Teams Human Resources Intern Relationship Specialty Start Date End Date Pcp, No [address] [place] [address] PCP - General Family Medicine 01/29/25 Renard Garcia MD [address] [facility] [place] [address] Surgeon Neurosurgery 11/25/21 Yohana Aragon DO [address] [place] [address] Obstetrics and Gynecology 10/22/22 Yvette Velarde APRN [address] [place] [address] Nurse Practitioner Neurosurgery 11/10/23
--- OUTSIDE RECORDS SUMMARY | 2025-03-29 22:27 | XMS_ITS | Encounter Summary ---
Author Organization [facility] Address [address] [place] [address] Care Team Providers Care Coil Wrapper Name Role Phone Xavier Esposito MD Primary Care Provider + Reason for Visit * Reason Onset Date Comments Advice Only 02/28/2025 Encounter Details Date Type Department Care Team (Late st Contact Info) Description 02/28/2025 Telephone [facility] [address] [place] [address] Xavier Esposito MD [address] [place] [address] Advice Only Social History Tobacco [...] stated that she was not going to [facility] and didn't have a way to get [...] WANT TO GO TO THE [facility], I OFFERED A APPOINTMENT WITH [facility] BUT SHE WOULD LIKE TO TALK WITH SOMEONE TO SEE WHAT THEY ADVISE HER TO DO. documented in this encounter Plan of Treatment Upcoming Encounters Date Type Department Care Team (Late st Contact Info) Description 04/08/2025 11:45 AM EDT Office Visit [facility] [address] [place], [place] [address] Xavier Esposito MD [address] [place] [address] documented as of this encounter Visit Diagnoses Not on filedocumented in this encounter Care Teams Coil Wrapper Relationship Specialty Start Date End Date Xavier Esposito MD [address] [place] [address] PCP - General Family Medicine 09/24/24 documented as of this encounter
--- OUTSIDE RECORDS SUMMARY | 2025-03-29 22:27 | XMS_ITS | Encounter Summary ---
Author Organization [facility] Address [address] [place] [id number] Care Team Providers Care Exterminator Termite Name Role Phone Xavier Esposito MD Primary Care Provider + Reason for Visit * Reason Onset Date Comments Med Refill 02/26/2025 Encounter Details Date Type Department Care Team (Late st Contact Info) Description 02/26/2025 Refill [facility] [address] [place] [address] Xavier Esposito MD [address] [place] [address] Chronic obstructive pulmonary disease, unspecified [...] Pharmacy where request should be sent: [facility] [place] - [address] [address] [address] - [phone] - [phone] FX Last office visit with prescribing clinician: [...] Description 04/08/2025 11:45 AM EDT Office Visit [facility] [address] [place] [address] Xavier Esposito MD [address] [place] [address] documented as of this encounter Visit Diagnoses Diagnosis Chronic obstructive pulmonary disease, unspecified COPD type documented in this encounter Care Teams Exterminator Termite Relationship Specialty Start Date End Date Xavier Esposito MD [address] [place] [address] PCP - General Family Medicine 09/24/24 documented as of this encounter
--- OUTSIDE RECORDS SUMMARY | 2025-03-29 22:27 | XMS_ITS | Encounter Summary ---
Author Organization Healthcare Address [address] [place] [address] Care Team Providers Care Block Operator Name Role Phone Perry Hicks MD Primary Care Provider [phone] Renard Garcia MD Unavailable [phone] Yohana Aragon DO Unavailable [phone] Yvette Velarde STAFFING MANAGER Unavailable [phone] Pcp, No Primary Care Provider Unavailabl e Carolina Aquino SOFA COVER INSPECTOR Unavailable Unavailable Pcp, No Primary Care Provider Unavailabl e Encounter Details Date Type Department Care Team (Late st Contact Info) Description 11/01/2022 Lab Requisition [facility] [address] [place] [address] Santiago England MD [address] [facility] [address] [place] [address] Atypical squamous cells of undetermined significance on [...] EDT) Case Report Sugical Pathology Consult Case: [id number] Authorizing Provider: Santiago England MD Collected: 11/01/2022 1243 Ordering Location: [facility] Lab Received: 11/01/2022 1243 Pathologist: Namrata Travis MD Specimen: Vaginal, [id number] 11/04/2022 9:18 AM EDT [facility] Final Diagnosis A. VAGINAL CUFF, 3:00 AND 9:00, BIOPSIES (OUTSIDE SLIDES [id number], 10/06/22): - FRAGMENTS OF PREDOMINANTLY CERVICAL STROMA WITH MINUTE FRAGMENTS OF CAUTERIZED SQUAMOUS EPITHELIUM - NO EVIDENCE OF HIGH GRADE DYSPLASIA OR CARCINOMA 11/04/2022 9:18 AM EDT [facility] at 0918 EDT Comment There is minimal intact epithelium available for review. Therefore these findings may not be retail customer service representative of the mucosal process. Clinical correlation, with potential rebiopsy, is suggested. 11/04/2022 9:18 AM EDT [facility] Clinical Information R87.610 - Atypical squamous cells of undetermined significance on cytologic smear of cervix (ASC-US) [ICD-10-CM] 11/04/2022 9:18 AM EDT [facility] Gross Description A. [id number] Received along with a corresponding pathology report from [facility] are 2 slide(s) labeled outside case: [id number] collected on 10/06/2022. 11/04/2022 9:18 AM EDT [facility] Note: A resident was involved in the service. I attest I examined the relevant preparations for the specimens and confirmed the diagnosis or interpretation. 11/04/2022 9:18 AM EDT [facility] Tissue Vaginal structure / Unknown 11/01/2022 12:43 PM EDT 11/01/2022 12:43 PM EDT us Santiago England MD LAB PATHOLOGY ORDERABLES Final Result [facility] [address] [place] [address] documented in this encounter Visit Diagnoses Diagnosis [...] documented as of this encounter Care Teams Block Operator Relationship Specialty Start Date End Date Perry Hicks MD [address] [place] [address] PCP - General 12/05/20 11/09/23 Pcp, No [address] [place] [address] PCP - General Family Medicine 11/10/23 01/28/25 Pcp, No [address] [place] [address] PCP - General Family Medicine 01/29/25 Renard Garcia MD [address] [facility] [place] [address] Surgeon Neurosurgery 11/25/21 Yohana Aragon DO [address] [place] [address] Obstetrics and Gynecology 10/22/22 Yvette Velarde APRN [address] [place] [address] Nurse Practitioner Neurosurgery 11/10/23 Carolina Aquino LPN [employer]UE[employer]ED [place] [address] TCM Nurse 09/13/24 10/12/24 documented as of this encounter
[2025-03-29 22:28] VITALS: BP 136/86; PULSE 77; RESP 18; TEMP 36.6; O2SAT 100; BMI 23.5
--- NOTE | 2025-03-29 22:29 | ECG_ITS ---
APPROVED REPORT Exam: Resting ECG HR:76 bpm ECG Measurements Heart Rate 76 AXES WI 189 P 60 QRSd 93 QRS 60 QT 401 T 45 QTc 431 Conclusion SINUS RHYTHM NORMAL ECG UNCONFIRMED REPORT Electronically signed by : Robson Toney, 03/29/2025 23:27:40
--- NOTE | 2025-03-29 22:51 | XR_ITS ---
PROCEDURE INFORMATION: Exam: XR Chest Exam date and time: 03/29/2025 11:16 PM Age: 54 years old Clinical indication: Dyspnea TECHNIQUE: Imaging protocol: Radiologic exam of the chest. Views: 1 view. COMPARISON: CR XR CHEST PORTABLE 03/24/2025 10:08 PM FINDINGS: Lungs: No focal consolidation. Pleural spaces: No pneumothorax. Heart/Mediastinum: Unremarkable cardiomediastinal silhouette. Bones/joints: Metallic plate cervical spine. IMPRESSION: No focal consolidation.
--- NOTE | 2025-03-29 22:56 | HMH.EDGENADL ---
Discharge Plan Disposition Patient Disposition: Home, Self-Care Condition: Good Prescriptions Prescriptions: No Action clonazepam [Klonopin] 0.5 mg tablet 0.5 mg PO BIDP PRN (Reason: Anxiety) 7 Days Qty: 14 0RF albuterol sulfate 90 mcg/actuation HFA aerosol inhaler 1 inh inhalation Q6HP PRN (Reason: Shortness Of Breath) omeprazole 40 mg capsule,delayed release(DR/EC) 40 mg PO DAILY Qty: 90 1RF promethazine 25 mg tablet 25 mg PO BIDP PRN (Reason: Nausea And Vomiting) benzonatate 100 mg capsule 100 mg PO TIDP PRN (Reason: Cough) Rx Instructions: TAKE 1 CAPSULE BY MOUTH 3 TIMES A DAY NEEDED FOR COUGH albuterol sulfate 2.5 mg /3 mL (0.083 %) solution for nebulization 5 mg inhalation Q6HP PRN (Reason: Shortness Of Breath Or Wheezing) Patient Comments: INHALE CONTENTS OF 2 VIALS VIA NEBULIZER EVERY 6 HOURS NEEDED FOR SHORTNESS OF BREATH OR WHEEZING umeclidinium-vilanterol [Anoro Ellipta] 62.5-25 mcg/actuation blister with device 1 inh INHALATION DAILY Patient Comments: INHALE 1 PUFF BY MOUTH ONCE A DAY meloxicam 7.5 mg tablet 7.5 mg PO BID Patient Comments: TAKE 1 TABLET BY MOUTH 2 TIMES A DAY fenofibrate nanocrystallized 145 mg tablet 145 mg PO DAILY Patient Comments: TAKE ONE TABLET BY MOUTH ONCE A DAY loperamide 2 mg capsule 6 mg PO BIDP PRN (Reason: Diarrhea) hydrocodone-acetaminophen 10-325 mg tablet 1 tab PO Q8HP PRN (Reason: Severe Pain (Scale Score 7-10)) levothyroxine 25 mcg tablet 25 mcg PO DAILYDM Rx Instructions: TAKE ONE TABLET BY MOUTH ONCE A DAY FOR THYROID hydrocortisone-aloe vera [Anti-Itch(hydrocortisone)-Aloe] 1 % cream 1 applic topical TIDP PRN (Reason: skin irritation) fluticasone propionate 50 mcg/actuation spray,suspension 1 spray INTRANASAL BID atorvastatin 40 mg Tablet 80 mg PO HS 30 Days Qty: 60 0RF aspirin 81 mg Tablet,Delayed Release (Dr/Ec) 81 mg PO DAILY 30 Days Qty: 30 0RF Referrals Follow up/Referrals: Eric Peace DO [Primary Care Provider, Family Practice] - See instructions Activity Restrictions/Add. Instructions Additional Instructions/Restrictions: You were evaluated in the ER and are believed to be appropriate for discharge at this time. I recommend you stop using alcohol. This should improve your overall health and reduce your risk of chronic medical problems. Continue following up outpatient with cardiology, behavioral health, and primary care. Call the cardiology office first thing Tuesday morning to make an appointment for reevaluation. Return to the ER with any new, worsening, or otherwise concerning symptoms. Clinical Impressions Clinical Impression: Atypical chest pain, Alcohol use disorder Print Language Print Language: Trinidadian Discharge ED Provider: Stephen Toney General Adult HPI <Stephen Toney MD - Last Filed: 03/29/25 23:01> General Chief complaint: Chest Pain Stated complaint: Chest Pain Time Seen by Provider: 03/29/25 22:42 Mode of Arrival: Ambulatory Source of Information: Patient Description of Symptoms (Recalled from ER Triage Doc. by RN): Pt presents to the ed for evaluation of constant left sided chest pain that radiates into her left arm that began approx 1330 today while the patient was sitting watching TV. Pt reports associated SOA that is unchanged from the last visit she had at this ER earlier in the week. Pt reports associated nausea after marijuana use today. Pt denies following up with PCP since last visit. History of Present Illness HPI narrative: Patient is a 54-year-old well-known to our emergency department who is a frequent high utilizer of the healthcare system and presents today with chest pain that she states has been ongoing since about 1 PM. States is radiating into her left arm. Has been evaluated by cardiology team here had a coronary CTA that was halted ultimately secondary to some contrast allergy causes of bradycardia. She states she has never had a heart cath and has never been diagnosed with coronary artery disease. She has had extensive gastroenterology workup in the past as well. Denies any fevers chills etc. Related Data Home Medications ?Medication ?Instructions ?Recorded ?Confirmed promethazine 25 mg tablet 25 mg PO BIDP PRN Nausea And 07/24/24 03/28/25 Vomiting albuterol sulfate 90 mcg/actuation 1 inh inhalation Q6HP PRN 11/22/24 03/28/25 aerosol inhaler Shortness Of Breath albuterol sulfate 2.5 mg/3 mL 5 mg inhalation Q6HP PRN Shortness 03/10/25 03/28/25 (0.083 %) solution for nebulization Of Breath Or Wheezing benzonatate 100 mg capsule 100 mg PO TIDP PRN Cough 03/10/25 03/28/25 fenofibrate nanocrystallized 145 145 mg PO DAILY 03/10/25 03/28/25 mg tablet fluticasone propionate 50 1 spray intranasal BID 03/10/25 03/28/25 mcg/actuation nasal spray,suspension hydrocodone 10 mg-acetaminophen 1 tab PO Q8HP PRN Severe Pain 03/10/25 03/28/25 325 mg tablet (Scale Score 7-10) hydrocortisone-aloe vera 1 % 1 applic topical TIDP PRN skin 03/10/25 03/28/25 topical cream (Anti-Itch irritation (hydrocortisone) with Aloe) levothyroxine 25 mcg tablet 25 mcg PO DAILYDM 03/10/25 03/28/25 loperamide 2 mg capsule 6 mg PO BIDP PRN Diarrhea 03/10/25 03/28/25 meloxicam 7.5 mg tablet 7.5 mg PO BID 03/10/25 03/28/25 umeclidinium 62.5 mcg-vilanterol 1 inh inhalation DAILY 03/10/25 03/28/25 25 mcg/actuation powdr for inhalation (Anoro Ellipta) Previous Rx's ?Medication ?Instructions ?Recorded omeprazole 40 mg capsule,delayed 40 mg PO DAILY #90 caps 01/07/25 release aspirin 81 mg tablet,delayed 81 mg PO DAILY 30 days #30 tabs 03/12/25 release atorvastatin 40 mg tablet 80 mg (2 x 40 mg) PO HS 30 days 03/12/25 #60 tabs clonazepam 0.5 mg tablet (Klonopin) 0.5 mg PO BIDP PRN Anxiety 7 days 03/28/25 #14 tabs Allergies Allergy/AdvReac Type Severity Reaction Status Date / Time lidocaine Allergy Intermediate Red, Rash, Verified 03/28/25 14:51 Itching codeine (CODEINE) Allergy Unknown VOMITING Verified 03/28/25 14:51 erythromycin base Allergy Unknown ITCHING/HIV Verified 03/28/25 14:51 (ERYTHROMYCIN BASE) ES Penicillins (PENICILLINS) Allergy Unknown VOMITING Verified 03/28/25 14:51 ibuprofen Allergy Hives Verified 03/28/25 14:51 Iodinated Contrast Media Allergy Anaphylaxis Verified 03/28/25 14:51 tramadol AdvReac Hives Verified 03/28/25 14:51 [facility] <Stephen Toney MD - Last Filed: 03/29/25 23:01> [facility] Disclaimer: The information contained in this section may have been updated after the patient was seen, as this information can be updated by other users. Medical History Hyperlipidemia Chest pain Asthma Hypothyroid Anxiety disorder Chronically on benzodiazepine therapy Chronic, continuous use of opioids DJD (degenerative joint disease) of cervical spine Alcohol use disorder History of ovarian cancer Colon cancer LGSIL Pap smear of vagina Lumbar disc disease with radiculopathy Surgical History History of cranial surgery Hx of neck surgery cervical History of hysterectomy History of cholecystectomy Family History Other Anemia Asthma Cancer Coronary artery disease Diabetes Family history of bronchitis Family history of myocardial infarction Family history of stroke Heart attack Hyperlipidemia Hypertension Kidney disease Stroke Thyroid disorder Social History Smoking Status: Current every day smoker tobacco type: smokeless tobacco second hand exposure: No alcohol intake: former substance use type: denies use current occupational status: disabled Travel in the last 8 weeks?: None household members: none housing: house lives independently: Yes marital status: single number of children: 3 education level: high school current occupational exposures/hazards: No caffeine: No special christopher needs: No agree to transfusion: No do you feel safe at home: Yes victim of physical abuse: No victim of emotional abuse: No victim of sexual abuse: No would you like helpful sources: No Have you lived/traveled outside US in past 30 days?: No Contact w/someone who lives/traveled outside US past 30 days?: No Exposure to someone with infectious disease in past 14 days?: No Do you have a fever (greater than 100.4 F or 38 C)?: No Have you tested positive for COVID-19?: No Exposed to someone with COVID-19 in past 14 days?: No Do you have a sore throat?: No Do you have a cough?: No Do you have any weakness?: No Do you have any diarrhea?: No Are you experiencing any unusual bleeding?: No Do you have any muscle aches/pain?: No Do you have any abdominal pain?: No Are you experiencing loss of taste or smell?: No Other Medical History Have you received the Flu Vaccine for this season: No Have you received the Pneumonia Vaccine: No <Stephen Toney MD - Last Filed: 03/29/25 23:01> ROS Obtained: Yes All systems reviewed & no additional complaints except as documented Physical Exam <Stephen Toney MD - Last Filed: 03/29/25 23:01> General General appearance: alert and in no apparent distress Respiratory Respiratory exam: Present normal lung sounds bilaterally Cardiovascular Cardiovascular exam: Present regular rate; Absent normal rhythm Abdominal Exam Abdominal exam: Present soft; Absent distention Neurological Exam Neurological exam: Present alert and oriented X3 Medical Decision Making <Stephen Toney MD - Last Filed: 03/29/25 23:01> Medical Records Screening: Per USPSTF and CDC recommendations, given the prevalence of disease in our region, it is our hospital?s policy to screen for HIV and viral Hepatitis for all patients aged 18 and over and those with ongoing risk factors. [place] Inquiry Pt receiving controlled substance: No Vital Signs: 03/29/25 22:28 Temperature 98 F Temperature Source Oral Pulse Rate [Radial] 77 Respiratory Rate 18 Blood Pressure [Right Arm] 136/86 Blood Pressure Mean [Right Arm] 102 Blood Pressure Position [Right Arm] Sitting 02 Sat by Pulse Oximetry 100 Oxygen Delivery Method Room Air Lab Data Lab Results 03/29/25 22:30: WBC 5.1, RBC 3.76 L, Hgb 11.4 L, Hct 34.4 L, MCV 91.5, MCH 30.3, MCHC 33.1, RDW 15.9, Plt Count 344, MPV 9.3, Neut % (Auto) 29.0 L, Lymph % (Auto) 63.7 H, Leslie % (Auto) 5.7, Eos % (Auto) 0.8, Baso % (Auto) 0.6, Neut # (Auto) 1.5 L, Lymph # (Auto) 3.2, Leslie # (Auto) 0.3, Eos # (Auto) 0.0, Baso # (Auto) 0.0, D-Dimer 0.46, Sodium 136, Potassium 4.0, Chloride 99, Carbon Dioxide 26, Anion Gap 15.0, BUN 4 L, Creatinine 0.60, Estimated Creat Clear 106, Estimated GFR 105, Est GFR ( Amer) 127, Glucose 91, Calcium 9.6, Total Bilirubin 0.6, AST 58 H, ALT 24, Alkaline Phosphatase 89, Troponin I < 0.01, Total Protein 7.8, Albumin 4.7, Globulin 3.1, Albumin/Globulin Ratio 1.5, Plasma/Serum Alcohol 183 H 03/29/25 22:30 03/29/25 22:30 Orders (Tests/Meds): ORDERS Category Date Time Status CXR --portable [XR chest portable] Stat Exams 03/29/25 22:51 Taken CBC w/Auto Diff [Complete Blood Count Auto Diff] Stat Lab 03/29/25 22:30 Completed CMP [Comprehensive Metabolic Panel] Stat Lab 03/29/25 22:30 Completed D-Dimer Stat Lab 03/29/25 22:30 Completed Ethanol [Ethyl Alcohol] Stat Lab 03/29/25 22:30 Completed Trop I [Troponin I] Stat Lab 03/29/25 22:30 Completed Troponin I Q3H Lab 03/30/25 02:00 Ordered Troponin I Q3H Lab 03/30/25 05:00 Ordered ECG Data Tracing #1: I reviewed this ECG and interpreted as documented below: Ventricular to 76 normal sinus rhythm no acute ischemic changes noted normal axis no conduction abnormality HEART Score History (anamnesis): Slightly suspicious ECG: Normal Age: 45-65 years Risk factors: No known risk factors Troponin: </= normal limit HEART Score: 1 Medical Decision Narrative: 54-year-old well-known to our emergency department came in today with chest pain since 1:00 we will obtain D-dimer given her age cannot use PERC to rule her out from a pulmonary embolism standpoint she will not need serial troponins given the duration of her symptoms today EKG is nonischemic. I have a very low suspicion for any emergent pathology. Patient has an established relationship with our cardiology team if she is ruled out which will be a little discharged from a emergency standpoint and follow-up with cardiology. Care will be transitioned to Dr. Parra at 11 PM. <Joaquin Parra MD - Last Filed: 03/29/25 23:39> Vital Signs: 03/29/25 22:28 Temperature 98 F Temperature Source Oral Pulse Rate [Radial] 77 Respiratory Rate 18 Blood Pressure [Right Arm] 136/86 Blood Pressure Mean [Right Arm] 102 Blood Pressure Position [Right Arm] Sitting 02 Sat by Pulse Oximetry 100 Oxygen Delivery Method Room Air Lab Data Lab Results 03/29/25 22:30: WBC 5.1, RBC 3.76 L, Hgb 11.4 L, Hct 34.4 L, MCV 91.5, MCH 30.3, MCHC 33.1, RDW 15.9, Plt Count 344, MPV 9.3, Neut % (Auto) 29.0 L, Lymph % (Auto) 63.7 H, Leslie % (Auto) 5.7, Eos % (Auto) 0.8, Baso % (Auto) 0.6, Neut # (Auto) 1.5 L, Lymph # (Auto) 3.2, Leslie # (Auto) 0.3, Eos # (Auto) 0.0, Baso # (Auto) 0.0, D-Dimer 0.46, Sodium 136, Potassium 4.0, Chloride 99, Carbon Dioxide 26, Anion Gap 15.0, BUN 4 L, Creatinine 0.60, Estimated Creat Clear 106, Estimated GFR 105, Est GFR ( Amer) 127, Glucose 91, Calcium 9.6, Total Bilirubin 0.6, AST 58 H, ALT 24, Alkaline Phosphatase 89, Troponin I < 0.01, Total Protein 7.8, Albumin 4.7, Globulin 3.1, Albumin/Globulin Ratio 1.5, Plasma/Serum Alcohol 183 H Orders (Tests/Meds): ORDERS Category Date Time Status CXR --portable [XR chest portable] Stat Exams 03/29/25 22:51 Taken CBC w/Auto Diff [Complete Blood Count Auto Diff] Stat Lab 03/29/25 22:30 Completed CMP [Comprehensive Metabolic Panel] Stat Lab 03/29/25 22:30 Completed D-Dimer Stat Lab 03/29/25 22:30 Completed Ethanol [Ethyl Alcohol] Stat Lab 03/29/25 22:30 Completed Trop I [Troponin I] Stat Lab 03/29/25 22:30 Completed Troponin I Q3H Lab 03/30/25 02:00 Ordered Troponin I Q3H Lab 03/30/25 05:00 Ordered HEART Score HEART Score: 1 Medical Decision Narrative: 54-year-old well-known to our emergency department came in today with chest pain since 1:00 we will obtain D-dimer given her age cannot use PERC to rule her out from a pulmonary embolism standpoint she will not need serial troponins given the duration of her symptoms today EKG is nonischemic. I have a very low suspicion for any emergent pathology. Patient has an established relationship with our cardiology team if she is ruled out which will be a little discharged from a emergency standpoint and follow-up with cardiology. Care will be transitioned to Dr. Parra at 11 PM. Parra: Upon my assumption of care patient is hemodynamically stable, afebrile, resting comfortably, she has no chest pain at this time. I agree with the assessment and plan from Dr. Toney. Labs reviewed by me demonstrate no leukocytosis, mild anemia is stable from previous, normal platelets, D-dimer 0.46, by years criteria PE is excluded. CMP nonactionable, slight elevation in AST is nonactionable but consistent with patient's known alcohol use. Initial troponin undetectably low at less than 0.01. Serial troponins are not indicated given patient's duration of symptoms and nonischemic ECG. EtOH elevated at 183 consistent with patient's history of EtOH abuse. Chest x-ray personally interpreted does not demonstrate acute intrathoracic abnormality, see radiology read for final interpretation. On reassessment patient continues to be asymptomatic, well-appearing. She is clinically sober and appropriate for discharge at this time and comfortable with this plan. She has follow-up scheduled with behavioral health, cardiology, and primary care and I encouraged her to keep all of these appointments. Patient was given instructions on symptomatic management, follow up instructions, and return precautions for the emergency department. She and family at bedside indicated understanding and the patient was was discharged in stable condition. Critical Care <Stephen Toney MD - Last Filed: 03/29/25 23:01> Critical Care Time Critical Care Time: No
[2025-03-29 22:57] LABS: Hematocrit 34.4 % (37.0-47.0); Hemoglobin 11.4 g/dL (12.2-16.2); Immature Granulocytes % 0.2 %; Mean Corpuscular HGB Conc 33.1 g/dL (31.8-35.4); Mean Corpuscular Hemoglobin 30.3 pg (27.0-31.2); Mean Corpuscular Volume 91.5 fl (81-99); Nucleated Red Blood Cells % 0 %; Platelet Count 344 K/mm3 (142-424); Red Blood Count 3.76 M/mm3 (4.20-5.40); Red Cell Distribution Width-SD 53.1 fL; White Blood Count 5.1 K/mm3 (4.8-10.8)
[2025-03-29 23:04] LABS: Alanine Aminotransferase 24 U/L (12-78); Albumin Level 4.7 g/dl (3.5-5.0); Albumin/Globulin Ratio 1.5 (1.1-1.8); Alkaline Phosphatase 89 U/L (38-126); Anion Gap 15.0 mEq/L (5-15); Aspartate Amino Transferase 58 U/L (14-36); Bilirubin,Total 0.6 mg/dl (0.2-1.3); Blood Urea Nitrogen 4 mg/dl (7-17); Calcium 9.6 mg/dl (8.4-10.2); Carbon Dioxide 26 mmol/L (22.0-30.0); Chloride 99 mmol/L (98-107); Creatinine Clearance Estimated 106 mL/min (50-200); Creatinine,Serum 0.60 mg/dl (0.52-1.04); Estimated Glomerular Filt Rate 105 ml/min (>60); GFR (African American) 127 ML/MIN (>60); Globulin 3.1 g/dL (1.3-3.2); Glucose 91 mg/dl (74-100); Potassium 4.0 mmoL/L (3.5-5.1); Sodium 136 mmol/L (136-145); Total Protein,Serum 7.8 g/dl (6.3-8.2)
[2025-03-29 23:08] LABS: D-Dimer 0.46 ug/mL (0.0-0.5)
[2025-03-29 23:17] LABS: Troponin I < 0.01 ng/ml (0.00-0.034)
[2025-03-29 23:42] VITALS: BP 127/84; PULSE 75; RESP 16; TEMP 36.7; O2SAT 99
== END 2025-03-29 23:43 | disposition home or self-care (01) ==
PROVIDERS: Emergency Provider Student in an Organized Health Care Education/Training Program; PCP Internal Medicine
DX: R07.89 Other chest pain (principal); F10.929 Alcohol use, unspecified with intoxication, unspecified; F17.210 Nicotine dependence, cigarettes, uncomplicated; Y90.6 Blood alcohol level of 120-199 mg/100 ml
CPT/HCPCS: 71045; 80053; 80320; 84484; 85025; 85378; 93005; 99284

== ENCOUNTER 2025-04-01 10:12 | Outpatient (CLI) | payer MEDICAID, SELFPAY ==
--- OUTSIDE RECORDS SUMMARY | 2025-02-05 11:00 | XMS_ITS | Encounter Summary ---
[facility] [address] [place] [address] Care Team Providers Care Newscast Director Name Role Phone Xavier Esposito MD Primary Care Provider + Reason for Referral * Pain Management (Routine) - Authorized Specialty Diagnoses / Procedures Referred By Contac t Referred To Contact Pain Medicine Diagnoses Chronic neck and back pain Procedures [place] OFFICE/OUTPATIENT NEW MODERATE MDM 45 MINUTES Xavier Esposito MD [address] [facility] [place] [address] Phone: tel: fax: Nikita Chance II, MD [address] [place] [address] Phone: tel: fax: Referral ID Status Reason Start Date Expiration Date Visits Requested Visits Authorized [id number] Authorized Specialty Services Required 02/05/2025 05/07/2026 1 1 * Consultation (Routine) - Authorized Specialty Diagnoses / Procedures Referred By Contac t Referred To Contact Diagnoses Gastroesophageal reflux disease without esophagitis Esophageal dysmotility Polyp of colon, unspecified part of colon, unspecified type Procedures [place] OFFICE/OUTPATIENT NEW MODERATE MDM 45 MINUTES Xavier Esposito MD [address] [place] [address] Phone: tel: fax: Tim Jimenez MD [address] [place] [address] Phone: tel: fax: Referral ID Status Reason Start Date Expiration Date Visits Requested Visits Authorized Authorized Specialty Services Required 02/05/2025 05/07/2026 1 1 Scheduling Instructions Refer to Dr. Tim Jimenez * Consultation (Routine) - Closed Specialty Diagnoses / Procedures Referred By Contac t Referred To Contact Orthopedic Surgery Diagnoses Injury of right rotator cuff, subsequent encounter Xavier Esposito MD [address] [place] [address] Phone: tel: fax: Rod Au MD [facility] [place] [address] Phone: tel: fax: Referral ID Status Reason Start Date Expiration Date V isits Requested Visits Authorized Closed Specialty Services Required 02/05/2025 05/07/2026 1 1 Scheduling Instructions Refer to Dr. [facility] in [place] * Consultation (Routine) - Closed Specialty Diagnoses / Procedures Referred By Contac t Referred To Contact Pulmonary Disease Diagnoses Lung disease Dyspnea on exertion Procedures [place] OFFICE/OUTPATIENT NEW MODERATE MDM 45 MINUTES Xavier Esposito MD [address] [place] [address] Phone: tel: fax: Albert Linares MD Referral ID Status Reason Start Date Expiration Date V isits Requested Visits Authorized Closed Specialty Services Required 02/05/2025 05/07/2026 1 1 Scheduling Instructions Refer to Dr. Albert Linares Reason for Visit * Reason Comments ER f/u [facility] Encounter Details Date Type Department Care Team (Late st Contact Info) Description 02/05/2025 11:00 AM EDT Office Visit [facility] [address] [facility] [place] [phone] Xavier Esposito MD [address] [facility] [address] [place] [address] Lung disease (Primary Dx); Dyspnea on [...] swallowing. Patient has been seen at the [facility] as well as at [facility] by dispenser operator. Testing performed in August 2024 showed esophageal [...] prescriptions from other primary care providers in [place]. Right shoulder pain. Patient was seen at the [facility] 1 week ago [place]. She believes the fall may have caused a rotator cuff tear. Anxiety. Patient is seeing psychiatric HEAD OF BUSINESS DEVELOPMENT at [facility] who is prescribed the patient's clonazepam [...] management physician. This applies to both her [place] and her gabapentin 4. Patient will be referred to local orthopedics for her right rotator cuff injury 5. Patient's anxiety is a significant contributor to her review of her health as well as control ofher chronic conditions exacerbating symptoms of dyspnea, exacerbating symptoms of pain. She should continue to see behavioral health at [facility] 6. Long discussion was had with the patient regarding the fractured nature of her care. This year alone she has seen 3 different primary care physicians, but goes to the emergency room at the [facility], all while living in [place]. I have recommended that she get established with [facility] care system to allow for better care. She will be moving to [place]. She will continue to come tothis office as her PCP but specialist referrals will be made within [facility] with the exception of her already [...] Description 04/08/2025 11:45 AM EDT Office Visit [facility] [address] [place] [phone] Xavier Esposito MD [address] [place] [address] documented as of this encounter Visit Diagnoses [...] pain documented in this encounter Care Teams Newscast Director Relationship Specialty Start Date End Date Xavier Esposito MD [address] [place] [address] PCP - General Family Medicine 09/24/24 documented as of this encounter
--- OUTSIDE RECORDS SUMMARY | 2025-04-01 10:14 | XMS_ITS | Clinical Summary ---
Author Organization [facility] Address [address] [place] [address] Care Team Providers Care Electrical Subcontractor Name Role Phone Xavier Esposito MD Primary [...] of the L-spine in ER visit at [facility] revealing mild to moderate degenerative changes with mild L4 and L5 retrolisthesis which is stable, no acute abnormality. Referring to pain management for further evaluation, noting up until recently had been prescribed Mathis 10 mg 4 times daily and gabapentin [...] Dr. Oswaldo Carrasquillo of general surgery in [place], patient indicating had 2 polyps left in [...] (09/08/2023 6:18 PM EST): Obtain records from [facility]. Keep [facility] follow-up. 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 [address] [place] [address] Xavier Esposito MD Advice Only 02/26/[address] [facility] [address] [address] Xavier Esposito MD New Med Request 02/26/[address] [facility] [address] [place] [phone] Xavier Esposito MD REFERRAL REQUEST 02/26/2025 Refill [facility] [address] [place] [address] Xavier Esposito MD Chronic obstructive pulmonary disease, unspecified COPD type 02/05/2025 11:00 AM EDT Office Visit [facility] [address] [place] [address] Xavier Esposito MD Lung disease (Primary Dx); [...] Description 04/08/2025 11:45 AM EDT Office Visit [facility] [address] [place] [address] Xavier Esposito MD [address] [place] [address] Health Maintenance Due Date Last Done Comments Annual Gynecologic Pelvic and Breast Exam 1970 Pneumococcal Vaccine 50+ (1 of 2 - PCV) 11/15/1990 TDAP/TD VACCINES (1 - Tdap) 11/15/1990 ZOSTER VACCINE (1 of 2) 11/15/2021 ANNUAL PHYSICAL 09/01/2023 COVID-19 Vaccine (2 - 2024- season) 2025 INFLUENZA VACCINE 04/24/2025 MAMMOGRAM 05/25/2025 05/25/2023, 02/25/2023 HEPATITIS C SCREENING Completed 09/07/2024, 024 Procedures Procedure Name Priority Date/Time Associated Diagnosis Comments SCANNED - MAMMO 02/25/2023 from Last 3 Months or Most Recently Relevant to Health Maintenance Results * MAMMO Scan (02/25/2023) Anatomical Region Laterality Modality Other Peggy Khoury [facility] CHART REVIEW TABS Final Result from Last 3 Months or Most Recently Relevant to Health Maintenance Insurance [employer] Care Teams Electrical Subcontractor Relationship Specialty Start Date End Date Xavier Esposito MD [address] [place] [address] PCP - General Family Medicine 09/24/24
--- OUTSIDE RECORDS SUMMARY | 2025-04-01 10:14 | XMS_ITS | Encounter Summary ---
Author Organization [facility] Address [address] [place] [address] Care Team Providers Care Semiconductor Packages Platemaker Name Role Phone Xavier Esposito MD Primary Care Provider + Reason for Visit * Reason Onset Date Comments REFERRAL REQUEST 02/26/2025 Encounter Details Date Type Department Care Team (Late st Contact Info) Description 02/26/2025 Telephone [facility] [address] [place] [address] Xavier Esposito MD [address] [place] [address] REFERRAL REQUEST Social History Tobacco [...] HAS SEEN MOST OF THE PROVIDERS IN [place] AND [facility]. I TOLD HER I WOULD TRY PARADIGM, [...] 11:45 AM EDT Office Visit [facility] [address] [place] [address] Xavier Esposito MD [address] [place] [address] documented as of this encounter Visit Diagnoses Not on filedocumented in this encounter Care Teams Semiconductor Packages Platemaker Relationship Specialty Start Date End Date Xavier Esposito MD [address] [place] [address] PCP - General Family Medicine 09/24/24 documented as of this encounter
--- OUTSIDE RECORDS SUMMARY | 2025-04-01 10:14 | XMS_ITS | Encounter Summary ---
Author Organization [facility] Address [address] [place] [address] Care Team Providers Care [facility] [facility] Products Assembler Name Role Phone Xavier Esposito MD Primary [...] [facility] [address] [place] [address] Xavier Esposito MD [address] [place] [address] documented as of this encounter Visit Diagnoses Not on filedocumented in this encounter Care Teams [employer] Products Assembler Relationship Specialty Start Date End Date Xavier Esposito MD [address] [place] [address] PCP - General Family Medicine 09/24/24 documented as of this encounter
--- OUTSIDE RECORDS SUMMARY | 2025-04-01 10:14 | XMS_ITS | Encounter Summary ---
Author Organization [facility] Address [address] [place] [id number] Care Team Providers Care Finger Grip Machine Operator Name Role Phone Xavier Esposito MD Primary Care Provider + Reason for Visit * Reason Onset Date Comments Med Refill 02/26/2025 Encounter Details Date Type Department Care Team (Late st Contact Info) Description 02/26/2025 Refill [facility] [address] [place] [address] Xavier Esposito MD [address] [place] [address] Chronic obstructive pulmonary disease, unspecified [...] Pharmacy where request should be sent: [facility] [place] - [address] [address] [address] - [phone] - [phone] FX Last office visit with prescribing clinician: [...] Visit [facility] [address] [place] [address] Xavier Esposito MD [address] [place] [address] documented as of this encounter Visit Diagnoses Diagnosis Chronic obstructive pulmonary disease, unspecified COPD type documented in this encounter Care Teams Finger Grip Machine Operator Relationship Specialty Start Date End Date Xavier Esposito MD [address] [place] [address] PCP - General Family Medicine 09/24/24 documented as of this encounter
--- OUTSIDE RECORDS SUMMARY | 2025-04-01 10:14 | XMS_ITS | Encounter Summary ---
Author Organization [facility] Address [address] [place] [address] Care Team Providers Care Individualized Education Plan Aide Name Role Phone Xavier Esposito MD Primary Care Provider + Reason for Visit * Reason Onset Date Comments New Med Request 02/26/2025 Encounter Details Date Type Department Care Team (Late st Contact Info) Description 02/26/2025 Telephone [facility] [address] [place] [address] Xavier Esposito MD [address] [place] [address] New Med Request Social History [...] your preferred pharmacy and phone number: [facility] - [place] - [address] [place] [address] [address] - [phone] PH - [phone] FX [phone] Additional notes: PATIENT HAD BEEN SEEING PAIN [...] Description 04/08/2025 11:45 AM EDT Office Visit [facility] [address] [place] [address] Xavier Esposito MD [address] [place] [address] documented as of this encounter Visit Diagnoses Not on filedocumented in this encounter Care Teams Individualized Education Plan Aide Relationship Specialty Start Date End Date Xavier Esposito MD [address] [place] [address] PCP - General Family Medicine 09/24/24 documented as of this encounter
--- OUTSIDE RECORDS SUMMARY | 2025-04-01 10:15 | XMS_ITS | Clinical Summary ---
Author Organization Healthcare Address [address] [place] [address] Care Team Providers Care Probation Officer Name Role Phone Renard Garcia MD Unavailable [phone] Yohana Aragon DO Unavailable [phone] Yvette Velarde SAFETY ENGINEER PRESSURE VESSELS Unavailable [phone] Pcp, No Primary Care Provider Unavailabl e [...] needed for irritation. 5 Active HYDROcodone-errol taminophen ([place]) 10-325 MG tablet Take 1 tablet (10 [...] (11/25/2021): Added automatically from request for surgery [id number] Encounters Date Type Department Care Team Description 01/29/2025 12:34 AM EDT - 01/29/2025 5:56 AM EDT Emergency [facility] Emergency Department [address] [place] [address] Jose Luis Tolbert DO Acute pain of [...] Hep B Twinrix 3-dose series) 08/08/2018 07/11/2018 [id number] Vaccine (2 - Pfizer risk series) 04/27/2021 [...] this topic Medical Devices Implanted Type Area Terrapin Fisher Device Identifier Shelf Expiration Date Model / Serial / Lot One Level Plate, 12mm - [id number] Implanted:Qty : 1 on 11/28/2021 by Renard Garcia MD at [facility] Plate Spine Cervical [id number] 11/28/2022 [id number] / / Self Drilling Screw 14mm - [id number] Implanted:Qty : 2 on 11/28/2021 by Renard Garcia MD at [facility] Screw Spine Cervical [id number] 11/28/2022 [id number] / / Large Diameter 14mm - [id number] Implanted:Qty : 2 on 11/28/2021 by Renard Garcia MD at [facility] Screw Spine Cervical [id number] 11/28/2022 [id number] / / Nut Retainer - [id number] Implanted:Qty : 2 on 11/28/2021 by Renard Garcia MD at [facility] Washer Spine Cervical De[employer] [id number] 11/28/2022 [id number] / / Knee Vanguard1 Cervical Preservon 7mm - [id number] - [id number] Implanted:Qty : 1 on 11/28/2021 by Renard Garcia MD at [facility] Spine Cervical [facility]-[id number] 07/05/2026 [id number] / [id number] / [id number] Graft Vivigen 1cc - [id number] - [id number] Implanted:Qty : 1 on 11/28/2021 by Renard Garcia MD at [facility] Spine Cervical [facility]-[id number] 11/18/2022 [id number] / [id number] / [id number] Procedures Procedure Name Priority Date/Time Associated Diagnosis [...] Daniel Peña MD on 01/29/2025 4:12 AM Jos eLuis Tolbert DO IMG XR PROCEDURES Final Resu lt * Troponin T, High Sensitivity, 2 Hour, Plasma (01/29/2025 2:45 AM EDT) Troponin T, High Sensitivity, 2 Hour <6 <14 ng/L 01/29/2025 3:30 AM EDT [facility] Troponin Delta Interpretation Not Calculated 01/29/2025 3:30 AM EDT [facility] Comment:Specimen not collect ed within acceptable timeframe. Delta will not be calculated. Blood Venous blood specimen / Unknown Venipuncture / Unknown 01/29/2025 2:45 AM EDT 01/29/2025 3:00 AM EDT Jose Luis Aviles [facility] LAB BLOOD ORDERABLES Final R esult [facility] [address] [place] [address] * XR Shoulder Right 2+ Views (01/29/2025 [...] (01/29/2025 12:49 AM EDT) Pathologist [facility] HIV 1 & 2 Antibody/Antigen Screen Non Reactive Non Reactive 01/29/2025 1:41 AM EDT [facility] Comment:Screening for HIV 1 & 2 antibodies, and P24 antigen is NONREACTIVE. No confirmatory testing is required. Blood Venous blood specimen / Unknown Venipuncture / Unknown 01/29/2025 12:49 AM EDT 01/29/2025 1:01 AM EDT us Jose Luis Tolbert DO LAB BLOOD ORDERABLES Final R esult [facility] [address] [place] [address] * Troponin now and 120 min (01/29/2025 12:49 AM EDT) Troponin T, High Sensitivity, 0 Hour <6 <14 ng/L 01/29/2025 1:26 AM EDT [facility] Blood Venous blood specimen / Unknown Venipuncture / Unknown 01/29/2025 12:49 AM EDT 01/29/2025 12:57 AM EDT Jose Luis Tolbert DO LAB BLOOD ORDERABLES Final R esult [facility] [address] [place] [address] * (ABNORMAL) CBC with Diff (01/29/2025 12:49 AM EDT) WBC Count 5.63 3.70 - 10.30 10*3/uL LAB HEMATOLOGY METHOD 01/29/2025 1:01 AM EDT [facility] RBC Count 3.82(L) 3.90 - 5.20 10*6/uL LAB HEMATOLOGY METHOD 01/29/2025 1:01 AM EDT [facility] HGB 11.5 11.2 - 15.7 g/dL LAB HEMATOLOGY METHOD 01/29/2025 1:01 AM EDT [facility] HCT 34.1 34.0 - 45.0 % LAB HEMATOLOGY METHOD 01/29/2025 1:01 AM EDT [facility] Platelet Count 324 155 - 369 10*3/uL LAB HEMATOLOGY METHOD 01/29/2025 1:01 AM EDT [facility] MCV 89 79 - 98 fL LAB HEMATOLOGY METHOD 01/29/2025 1:01 AM EDT [facility] MCH 30.1 26.0 - 32.0 pg LAB HEMATOLOGY METHOD 01/29/2025 1:01 AM EDT [facility] MCHC 33.7 30.7 - 35.5 g/dL LAB HEMATOLOGY METHOD 01/29/2025 1:01 AM EDT [facility] RDW 14.6(H) 11.5 - 14.5 % LAB HEMATOLOGY METHOD 01/29/2025 1:01 AM EDT [facility] MPV 8.8 8.8 - 12.5 fL LAB HEMATOLOGY METHOD 01/29/2025 1:01 AM EDT [facility] nRBC 0.0 <=0.0 per 100 WBCs LAB HEMATOLOGY METHOD 01/29/2025 1:01 AM EDT [facility] Differential Type Automated LAB HEMATOLOGY METHOD 01/29/2025 1:01 AM EDT [facility] Neutrophils % 32 % LAB HEMATOLOGY METHOD 01/29/2025 1:01 AM EDT [facility] Lymphocytes % 61 % LAB HEMATOLOGY METHOD 01/29/2025 1:01 AM EDT [facility] Monocytes % 6 % LAB HEMATOLOGY METHOD 01/29/2025 1:01 AM EDT [facility] Eosinophils % 1 % LAB HEMATOLOGY METHOD 01/29/2025 1:01 AM EDT [facility] Basophils % 0 % LAB HEMATOLOGY METHOD 01/29/2025 1:01 AM EDT [facility] Immature Granulocytes % 0 % LAB HEMATOLOGY METHOD 01/29/2025 1:01 AM EDT [facility] Neutrophils Absolute 1.82 1.60 - 6.10 10*3/uL LAB HEMATOLOGY METHOD 01/29/2025 1:01 AM EDT [facility] Lymphocytes Absolute 3.41 1.20 - 3.90 10*3/uL LAB HEMATOLOGY METHOD 01/29/2025 1:01 AM EDT [facility] Monocytes Absolute 0.31 0.30 - 0.90 10*3/uL LAB HEMATOLOGY METHOD 01/29/2025 1:01 AM EDT [facility] Eosinophils Absolute 0.07 0.00 - 0.50 10*3/uL LAB HEMATOLOGY METHOD 01/29/2025 1:01 AM EDT [facility] Basophils Absolute 0.01 0.00 - 0.10 10*3/uL LAB HEMATOLOGY METHOD 01/29/2025 1:01 AM EDT [facility] Immature Granulocytes Absolute 0.01 0.00 - 0.06 10*3/uL LAB HEMATOLOGY METHOD 01/29/2025 1:01 AM EDT [facility] Blood Venous blood specimen / Unknown Venipuncture / Unknown 01/29/2025 12:49 AM EDT 01/29/2025 12:57 AM EDT [facility] - 01/29/2025 1:01 AM EDT Therapeutic decision making should be based on absolute values, rather than percentages. us Jose Luis Tolbert DO LAB BLOOD ORDERABLES Final R esult [facility] [address] [place] [address] * (ABNORMAL) BMP (01/29/2025 12:49 AM EDT) Glucose, Plasma 77 74 - 99 mg/dL 01/29/2025 1:26 AM EDT [facility] BUN, Plasma 8 7 - 21 mg/dL 01/29/2025 1:26 AM EDT [facility] Creatinine, Plasma 0.67 0.60 - 1.10 mg/dL 01/29/2025 1:26 AM EDT [facility] BUN/Creatinine Ratio 12 01/29/2025 1:26 AM EDT [facility] Sodium, Plasma 133(L) 136 - 145 mmol/L 01/29/2025 1:26 AM EDT [facility] Potassium, Plasma 3.5(L) 3.6 - 4.9 mmol/L 01/29/2025 1:26 AM EDT [facility] Chloride, Plasma 97 97 - 107 mmol/L 01/29/2025 1:26 AM EDT [facility] CO2, Plasma 21(L) 22 - 29 mmol/L 01/29/2025 1:26 AM EDT [facility] Anion Gap 15 6 - 16 mmol/L 01/29/2025 1:26 AM EDT [facility] Total Calcium, Plasma 9.3 8.9 - 10.2 mg/dL 01/29/2025 1:26 AM EDT [facility] eGFRcr 104.7 mL/min/1.7 3m*2 01/29/2025 1:26 AM EDT [facility] Comment:Reported eGFRcr in m L/min/1.73m2 is based the CKD-EPI 2020 equation that does not use a race coefficient. Blood Venous blood specimen / Unknown Venipuncture / Unknown 01/29/2025 12:49 AM EDT 01/29/2025 12:57 AM EDT Jose Luis Tolbert DO LAB BLOOD ORDERABLES Final R esult [facility] [address] [place] [address] * EKG now - STAT (adult) (01/29/2025 12:27 AM EDT) EKG DIAGNOSIS CLASS Borderline Abnormal MUSE ECG Ventricular Rate 95 BPM MUSE ECG Atrial Rate 95 BPM MUSE ECG PA Interval 176 ms MUSE ECG QRSD Interval 80 ms MUSE ECG QT Interval 368 ms MUSE ECG QTC Interval 462 ms MUSE ECG P [place] 39 degrees MUSE ECG R [place] 37 degrees MUSE ECG T Wave [place] 48 degrees MUSE ECG Diagnosis Normal sinus [...] Antigen Negative Negative 09/07/2024 10:36 AM EST [facility] Hepatitis C Antibody Negative Negative 09/07/2024 10:36 AM EST [facility] Hepatitis A Antibody IgM Negative Negative 09/07/2024 10:36 AM EST [facility] Hepatitis B Core Antibody IgM Negative Negative 09/07/2024 10:36 AM EST [facility] Blood Venous blood specimen / Unknown Venipuncture / Unknown 09/07/2024 8:04 AM EST 09/07/2024 8:14 AM EST Manjit Whitt APRN, ALAN LAB BLOOD ORDERABLES Fi nal Result [facility] [address] [place] [address] from Last 3 Months or Most Recently Relevant to Health Maintenance Insurance [facility] MEDICAID Advance Directives * Full Code (Latest Code Status on File) Date Activated Date Inactivated Comments 09/07/2024 6:46 AM 09/12/2024 6:58 PM Question Answer Comments Patient has decision-making capacity? Yes Care Teams Probation Officer Relationship Specialty Start Date End Date Pcp, No [address] [place] [address] PCP - General Family Medicine 01/29/25 Renard Garcia MD [address] [facility] [place] [address] Surgeon Neurosurgery 11/25/21 Yohana Aragon DO [address] [place] [address] Obstetrics and Gynecology 10/22/22 Yvette Velarde APRN [address] [place] [address] Nurse Practitioner Neurosurgery 11/10/23
--- OUTSIDE RECORDS SUMMARY | 2025-04-01 10:15 | XMS_ITS | Encounter Summary ---
Author Organization [facility] Address [address] [place] [address] Care Team Providers Care Shipwright Helper Name Role Phone Xavier Esposito MD Primary Care Provider + Reason for Visit * Reason Onset Date Comments Advice Only 02/28/2025 Encounter Details Date Type Department Care Team (Late st Contact Info) Description 02/28/2025 Telephone [facility] [address] [place] [address] Xavier Esposito MD [address] [place] [address] Advice Only Social History Tobacco [...] [facility], I OFFERED A APPOINTMENT WITH [facility] BUT SHE WOULD LIKE TO TALK WITH SOMEONE TO SEE WHAT THEY ADVISE HER TO DO. documented in this encounter Plan of Treatment Upcoming Encounters Date Type Department Care Team (Late st Contact Info) Description 04/08/2025 11:45 AM EDT Office Visit [facility] [address] [place], [place] [address] Xavier Esposito MD [address] [place] [address] documented as of this encounter Visit Diagnoses Not on filedocumented in this encounter Care Teams Shipwright Helper Relationship Specialty Start Date End Date Xavier Esposito MD [address] [place] [address] PCP - General Family Medicine 09/24/24 documented as of this encounter
--- OUTSIDE RECORDS SUMMARY | 2025-04-01 10:15 | XMS_ITS | Encounter Summary ---
Author Organization [facility] Address [address] [place] [address] Care Team Providers Care Copying Machine Repairer Name Role Phone Xavier Esposito MD Primary Care Provider + Reason for Visit * Reason Onset Date Comments Med Refill 03/05/2025 Encounter Details Date Type Department Care Team (Late st Contact Info) Description 03/05/2025 Refill [facility] [address] [place] [address] Xavier Esposito MD [address] [place] [address] Social History Tobacco Use Types [...] Kamara Relationship: Self Best call back number: [phone] Requested Prescriptions: Requested Prescriptions Pending Prescriptions Disp Refills promethazine (PHENERGAN) 25 MG tablet HYDROCODONE Pharmacy where request should be sent: [facility] [place] [address] s - [phone] - [phone] FX Last office visit with prescribing clinician: [...] Description 04/08/2025 11:45 AM EDT Office Visit [facility] [address] [place] [id number] Xavier Esposito MD [address] [place] [address] documented as of this encounter Visit Diagnoses Not on filedocumented in this encounter Care Teams Copying Machine Repairer Relationship Specialty Start Date End Date Xavier Esposito MD [address] [place] [address] PCP - General Family Medicine 09/24/24 documented as of this encounter
--- OUTSIDE RECORDS SUMMARY | 2025-04-01 10:15 | XMS_ITS | Encounter Summary ---
Author Organization Healthcare Address [address] [place] [address] Care Team Providers Care Pharmacy Informatics Manager Name Role Phone Perry Hicks MD Primary Care Provider [phone] Renard Garcia MD Unavailable [phone] Yohana Aragon DO Unavailable [phone] Yvette Velarde BULK MAIL TECHNICIAN Unavailable [phone] Pcp, No Primary Care Provider Unavailabl e Carolina Aquino PHYSICIAN ASSISTANT PSYCHIATRY Unavailable Unavailable Pcp, No Primary Care Provider Unavailabl e Encounter Details Date Type Department Care Team (Late st Contact Info) Description 11/01/2022 Lab Requisition [facility] [address] [place] [address] Santiago England MD [address] [facility] [address] [place] [address] Atypical squamous cells of undetermined significance on [...] 11:21 AM EDT) Case Report Cytology Case: [id number] Authorizing Provider: Santiago England MD Collected: 11/01/20221120 Ordering Location: [facility] Lab Received: 11/01/2022 112 Pathologist: Alayna Vaca MD Specimen: Vaginal, [id number] 11/02/2022 11:55 AM EDT [facility] Final Diagnosis A. VAGINAL PAP SMEAR (OUTSIDE CASE [id number], COLLECTED 08/25/2022) - LOW GRADE SQUAMOUS INTRAEPITHELIAL LESION (LSIL), SEE COMMENT. 11/02/2022 11:55 AM EDT [facility] at 1155 EDT Comment Refer to surgical case [id number] for subsequent biopsy results. 11/02/2022 11:55 AM EDT [facility] Clinical Information R87.610 - Atypical squamous cells of undetermined significance on cytologic smear of cervix (ASC-US) [ICD-10-CM] 11/02/2022 11:55 AM EDT [facility] Gross Description A. [id number] For clinical data and diagnosis (LSIL) for this specimen ([id number]) see final report issued by [facility] Pathology Department. 11/02/2022 11:55 AM EDT [facility] Vaginal structure / Unknown 11/01/2022 11:21 AM EDT 11/01/2022 11:22 AM EDT us Santiago England MD LAB PATHOLOGY ORDERABLES Final Result [facility] [address] [place] [address] documented in this encounter Visit Diagnoses Diagnosis [...] documented as of this encounter Care Teams Pharmacy Informatics Manager Relationship Specialty Start Date End Date Perry Hicks MD [address] [place] [address] PCP - General 12/05/20 11/09/23 Pcp, No [address] [place] [address] PCP - General Family Medicine 11/10/23 01/28/25 Pcp, No [address] [place] [address] PCP - General Family Medicine 01/29/25 Renard Garcia MD [address] [place] [address] Surgeon Neurosurgery 11/25/21 Yohana Aragon DO [address] [place] [address] Obstetrics and Gynecology 10/22/22 Yvette Velarde APRN [address] [place] [address] Nurse Practitioner Neurosurgery 11/10/23 Carolina Aquino LPN VALUE-[employer]ED [place] [address] TCM Nurse 09/13/24 10/12/24 documented as of this encounter
--- OUTSIDE RECORDS SUMMARY | 2025-04-01 10:15 | XMS_ITS | Encounter Summary ---
Author Organization Healthcare Address [address] [place] [address] Care Team Providers Care Automobile Rental Representative Name Role Phone Perry Hicks MD Primary Care Provider + [phone] Renard Garcia MD Unavailable [phone] Yohana Aragon DO Unavailable [phone] Yvette Velarde CNC SERVICE TECHNICIAN Unavailable [phone] Pcp, No Primary Care Provider Unavailabl e Carolina Aquino CPHT Unavailable Unavailable Pcp, No Primary Care Provider Unavailabl e Encounter Details Date Type Department Care Team (Late st Contact Info) Description 11/01/2022 Lab Requisition [facility] [address] [place] [address] Santiago England MD [address] [facility] [address] [place] [address] Atypical squamous cells of undetermined significance on [...] EDT) Case Report Sugical Pathology Consult Case: [id number] Authorizing Provider: Santiago England MD Collected: 11/01/2022 1243 Ordering Location: [facility] Lab Received: 11/01/2022 1243 Pathologist: Namrata Travis MD Specimen: Vaginal, [id number] 11/04/2022 9:18 AM EDT [facility] Final Diagnosis A. VAGINAL CUFF, 3:00 AND 9:00, BIOPSIES (OUTSIDE SLIDES [id number], 10/06/22): - FRAGMENTS OF PREDOMINANTLY CERVICAL STROMA WITH MINUTE FRAGMENTS OF CAUTERIZED SQUAMOUS EPITHELIUM - NO EVIDENCE OF HIGH GRADE DYSPLASIA OR CARCINOMA 11/04/2022 9:18 AM EDT [facility] at 0918 EDT Comment There is minimal intact epithelium available for review. Therefore these findings may not be sales representative wire rope of the mucosal process. Clinical correlation, with potential rebiopsy, is suggested. 11/04/2022 9:18 AM EDT [facility] Clinical Information R87.610 - Atypical squamous cells of undetermined significance on cytologic smear of cervix (ASC-US) [ICD-10-CM] 11/04/2022 9:18 AM EDT [facility] Gross Description A. [id number] Received along with a corresponding pathology report from [facility] are 2 slide(s) labeled outside case: [id number] collected on 10/06/2022. 11/04/2022 9:18 AM EDT [facility] Note: A resident was involved in the service. I attest I examined the relevant preparations for the specimens and confirmed the diagnosis or interpretation. 11/04/2022 9:18 AM EDT [facility] Tissue Vaginal structure / Unknown 11/01/2022 12:43 PM EDT 11/01/2022 12:43 PM EDT us Santiago England MD LAB PATHOLOGY ORDERABLES Final Result [facility] [address] [place] [address] documented in this encounter Visit Diagnoses Diagnosis [...] documented as of this encounter Care Teams Automobile Rental Representative Relationship Specialty Start Date End Date Perry Hicks MD [address] [place] [address] PCP - General 12/05/20 11/09/23 Pcp, No [address] [place] [address] PCP - General Family Medicine 11/10/23 01/28/25 Pcp, No [address] [place] [address] PCP - General Family Medicine 01/29/25 Renard aGrcia MD [address] [facility] [place] [address] Surgeon Neurosurgery 11/25/21 Yohana Aragon DO [address] [place] [address] Obstetrics and Gynecology 10/22/22 Yvette Velarde APRN [address] [place] [address] Nurse Practitioner Neurosurgery 11/10/23 Carolina Aquino LPN [employer] [place] [address] TCM Nurse 09/13/24 10/12/24 documented as of this encounter
== END 2025-04-01 23:59 | disposition home or self-care (01) ==
LOC: RT 10:13
PROVIDERS: PCP Internal Medicine; Visit Provider Nurse Practitioner
DX: I49.1 Atrial premature depolarization (principal); I49.3 Ventricular premature depolarization; I47.10 Supraventricular tachycardia, unspecified
CPT/HCPCS: 93270

== ENCOUNTER 2025-04-09 19:52 | Emergency (ER) | payer MEDICAID, SELFPAY ==
[2025-04-09 19:52] VITALS: BP 168/91; PULSE 79; RESP 16; TEMP 36.7; O2SAT 98; BMI 23.1
--- NOTE | 2025-04-09 19:54 | ED_ITS ---
Discharge Plan Disposition Patient Disposition: Home, Self-Care Condition: Good Prescriptions Prescriptions: No Action albuterol sulfate 90 mcg/actuation HFA aerosol inhaler 1 inh inhalation Q6HP PRN (Reason: Shortness Of Breath) omeprazole 40 mg capsule,delayed release(DR/EC) 40 mg PO DAILY Qty: 90 1RF clonazepam [Klonopin] 0.5 mg tablet 0.25 mg PO BID 7 Days Qty: 7 0RF aspirin 81 mg tablet,delayed release (DR/EC) 81 mg PO DAILY 30 Days Qty: 30 0RF promethazine 25 mg tablet 25 mg PO BIDP PRN (Reason: Nausea And Vomiting) benzonatate 100 mg capsule 100 mg PO TIDP PRN (Reason: Cough) Rx Instructions: TAKE 1 CAPSULE BY MOUTH 3 TIMES A DAY NEEDED FOR COUGH albuterol sulfate 2.5 mg /3 mL (0.083 %) solution for nebulization 5 mg inhalation Q6HP PRN (Reason: Shortness Of Breath Or Wheezing) Patient Comments: INHALE CONTENTS OF 2 VIALS VIA NEBULIZER EVERY 6 HOURS NEEDED FOR SHORTNESS OF BREATH OR WHEEZING umeclidinium-vilanterol [Anoro Ellipta] 62.5-25 mcg/actuation blister with device 1 inh INHALATION DAILY Patient Comments: INHALE 1 PUFF BY MOUTH ONCE A DAY loperamide 2 mg capsule 6 mg PO BIDP PRN (Reason: Diarrhea) hydrocodone-acetaminophen 10-325 mg tablet 1 tab PO Q8HP PRN (Reason: Severe Pain (Scale Score 7-10)) levothyroxine 25 mcg tablet 25 mcg PO DAILYDM Rx Instructions: TAKE ONE TABLET BY MOUTH ONCE A DAY FOR THYROID hydrocortisone-aloe vera [Anti-Itch(hydrocortisone)-Aloe] 1 % cream 1 applic topical TIDP PRN (Reason: skin irritation) fluticasone propionate 50 mcg/actuation spray,suspension 1 spray INTRANASAL BID atorvastatin 40 mg Tablet 80 mg PO HS 30 Days Qty: 60 0RF Referrals Follow up/Referrals: Provider,Referral, MD [Primary Care Provider, Medical] - See instructions Activity Restrictions/Add. Instructions Additional Instructions/Restrictions: Follow-up with your egg packer as scheduled for your stress test. Clinical Impressions Clinical Impression: Chest pain Print Language Print Language: [place] Discharge ED Provider: Alisson Mcmanus Adult [facility] General Chief complaint: Chest Pain Stated complaint: Chest pain Time Seen by Provider: 04/09/25 19:53 History of Present Illness HPI narrative: Patient is a 54-year-old female who presented to the emergency department with chest pain that started today. Patient states that the pain is located on the left side, nonradiating in nature. Patient has not had any shortness of breath. Patient has not had any fevers. Patient has not had any abdominal pain nausea vomiting or diarrhea. Denies any history of blood clots. Patient states that she has a stress test scheduled for Tuesday has a pulmonology appointment on . Patient has been seen by egg packer was offered a stress heart catheterization but patient states that she does not want contrast and therefore refused a heart cath. Related Data Home Medications ?Medication ?Instructions ?Recorded ?Confirmed promethazine 25 mg tablet 25 mg PO BIDP PRN Nausea And 07/24/24 04/01/25 Vomiting albuterol sulfate 90 mcg/actuation 1 inh inhalation Q6 HP PRN 11/22/24 04/01/25 aerosol inhaler Shortness Of Breath albuterol sulfate 2.5 mg/3 mL 5 mg inhalation Q6HP PRN Shortness 03/10/25 04/01/25 (0.083 %) solution for nebulization Of Breath Or Wheez ing benzonatate 100 mg capsule 100 mg PO TIDP PRN Cough 04/01/25 fluticasone propionate 50 1 spray intranasal BID 03/1004/01/25 mcg/actuation nasal spray,suspension hydrocodone 10 mg-acetaminophen 1 tab PO Q8HP PRN Lynda re Pain 03/10/25 04/01/25 325 mg tablet (Scale Score 7-10) hydrocortisone-aloe vera 1 % 1 applic topical TIDP PRN skin 03/10/25 04/01/25 topical cream (Anti-Itch irritation (hydrocortisone) with Aloe) levothyroxine 25 mcg tablet 25 mcg PO DAILYDM 03/10/25 04/01/25 loperamide 2 mg capsule 6 mg PO BIDP PRN Diarrhea 04/01/25 umeclidinium 62.5 mcg-vilanterol 1 inh inhalation JANICE Y 03/10/25 04/01/25 25 mcg/actuation powdr for inhalation (Anoro Ellipta) Previous Rx's ?Medication ?Instructions ?Recorded omeprazole 40 mg capsule,delayed 40 mg PO DAILY #90 ca ps 01/07/25 release atorvastatin 40 mg tablet 80 mg (2 x 40 mg) PO HS 30 d ays 03/12/25 #60 tabs clonazepam 0.5 mg tablet (Klonopin) 0.25 mg (1/2 x 0.5 mg) PO BID 7 04/04/25 days #7 tabs aspirin 81 mg tablet,delayed 81 mg PO DAILY 30 days #3 0 tabs 04/11/25 release Allergies Allergy/AdvReac Type Severity Reaction Status Date / Time lidocaine Allergy Intermediate Red, Rash, Verified 04/01/25 09:29 Itching codeine (CODEINE) Allergy Unknown VOMITING Verified 04/01/25 09:29 erythromycin base Allergy Unknown ITCHING/HIV Verified 04/01/25 09:29 (ERYTHROMYCIN BASE) ES Penicillins (PENICILLINS) Allergy Unknown VOMITING Verified 04/01/25 09:29 ibuprofen Allergy Hives Verified 04/01/25 09:29 Iodinated Contrast Media Allergy Anaphylaxis Verified 04/01/25 09:29 tramadol AdvReac Hives Verified 04/01/25 09:29 [facility] Disclaimer: The information contained in this section may have been updated after the patient was seen, as this information can be updated by other users. Medical History Hyperlipidemia Chest pain Asthma Hypothyroid Anxiety disorder Chronically on benzodiazepine therapy Chronic, continuous use of opioids DJD (degenerative joint disease) of cervical spine Alcohol use disorder History of ovarian cancer Colon cancer LGSIL Pap smear of vagina Lumbar disc disease with radiculopathy Surgical History History of cranial surgery Hx of neck surgery cervical History of hysterectomy History of cholecystectomy Family History Other Anemia Asthma Cancer Coronary artery disease Diabetes Family history of bronchitis Family history of myocardial infarction Family history of stroke Heart attack Hyperlipidemia Hypertension Kidney disease Stroke Thyroid disorder Social History Smoking Status: Current every day smoker tobacco type: smokeless tobacco second hand exposure: No alcohol intake: former substance use type: denies use current occupational status: disabled Travel in the last 8 weeks?: None household members: none housing: house lives independently: Yes marital status: single number of children: 3 education level: high school current occupational exposures/hazards: No caffeine: No special christopher needs: No agree to transfusion: No do you feel safe at home: Yes victim of physical abuse: No victim of emotional abuse: No victim of sexual abuse: No would you like helpful sources: No Have you lived/traveled outside US in past 30 days?: No Contact w/someone who lives/traveled outside US past 30 days?: No Exposure to someone with infectious disease in past 14 days?: No Do you have a fever (greater than 100.4 F or 38 C)?: No Have you tested positive for COVID-19?: No Exposed to someone with COVID-19 in past 14 days?: No Do you have a sore throat?: No Do you have a cough?: No Do you have any weakness?: No Do you have any diarrhea?: No Are you experiencing any unusual bleeding?: No Do you have any muscle aches/pain?: No Do you have any abdominal pain?: No Are you experiencing loss of taste or smell?: No Other Medical History Have you received the Flu Vaccine for this season: No Have you received the Pneumonia Vaccine: No ROS Obtained: Yes All systems reviewed & no additional complaints except as documented and Yes Systems reviewed as appropriate & no additional complaints except as documented Physical Exam General General appearance: alert and in no apparent distress Head Head exam: atraumatic, normocephalic and normal inspection Eye Eye exam: Present normal appearance, PERRL and EOMI; Absent scleral icterus ENT ENT exam: Present normal exam and normal external ear exam Neck Neck exam: Present normal inspection and full ROM Chest Chest inspection: Present normal inspection and symmetric chest wall rise Respiratory Respiratory exam: Present normal lung sounds bilaterally; Absent respiratory distress or wheezes Cardiovascular Cardiovascular exam: Present regular rate, normal rhythm and normal heart sounds Abdominal Exam Abdominal exam: Present soft and distention; Absent tenderness, guarding or rebound Extremities Exam Extremities exam: Present normal inspection and full ROM Back Exam Back exam: Present normal inspection and full ROM Neurological Exam Neurological exam: Present alert and oriented X3 Psychiatric Psychiatric exam: Present normal affect and normal mood Skin Skin exam: Present warm and dry Medical Decision Making Medical Records Medical records reviewed: Yes I reviewed the patient's medical records. Screening: Per USPSTF and CDC recommendations, given the prevalence of disease in our region, it is our hospital?s policy to screen for HIV and viral Hepatitis for all patients aged 18 and over and those with ongoing risk factors. [place] Inquiry Pt receiving controlled substance: No Vital Signs: 04/09/25 19:52 04/09/25 20:06 04/09/25 21:37 Temperature 98.1 F Temperature Source Oral Pulse Rate 82 83 Pulse Rate [Radial] 79 Respiratory Rate 16 15 Blood Pressure 167/91 H Blood Pressure [Right Arm] 168/91 H Blood Pressure Mean [Right Arm] 116 Blood Pressure Position [Right Arm] Sitting 02 Sat by Pulse Oximetry 98 96 Oxygen Delivery Method Room Air 04/09/25 21:40 04/09/25 22:00 04/10/25 00:29 Temperature 98.2 F Temperature Source Pulse Rate 78 76 76 Pulse Rate [Radial] Respiratory Rate 14 12 20 Blood Pressure 161/81 H 153/86 H 153/86 H Blood Pressure [Right Arm] Blood Pressure Mean [Right Arm] Blood Pressure Position [Right Arm] 02 Sat by Pulse Oximetry 96 98 Oxygen Delivery Method Room Air Lab Data Lab results reviewed: Yes I reviewed the patient's lab results. Lab Results 04/09/25 19:37: WBC 6.3, RBC 3.94 L, Hgb 11.8 L, Hct 36.3 L, MCV 92.1, MCH 29.9, MCHC 32.5, RDW 15.6, Plt Count 332, MPV 9.1, Neut % (Auto) 36.4 L, Lymph % (Auto) 57.5 H, [place] % (Auto) 4.8, Eos % (Auto) 0.5, Baso % (Auto) 0.6, Neut # (Auto) 2.3, Lymph # (Auto) 3.6, [place] # (Auto) 0.3, Eos # (Auto) 0.0, Baso # (Auto) 0.0, D-Dimer 0.51 H, Sodium 135 L, Potassium 3.4 L, Chloride 100, Carbon Dioxide 23, Anion Gap 15.4 H, BUN 5 L, Creatinine 0.60, Estimated Creat Clear 105, Estimated GFR 105, Est GFR ( Amer) 127, Glucose 81, Calcium 9.1, Total Bilirubin 0.7, AST 74 H, ALT 28, Alkaline Phosphatase 117, Troponin I < 0.01, NT-Pro-B Natriuret Pep 133 H, Total Protein 8.0, Albumin 4.8, Globulin 3.2, Albumin/Globulin Ratio 1.5 04/09/25 23:17: Troponin I < 0.01 04/09/25 19:37 04/09/25 19:37 Orders (Tests/Meds): ED MEDICATIONS Discontinued Medications Generic Name Dose Route Start Last Admin Trade Name Jody PRN Reason Stop Dose Admin Clonazepam 0.5 mg 04/09/25 23:40 04/09/25 23:47 Clonazepam 0.5mg Tablet PO 04/09/25 23:41 0.5 mg ONCE ONE Administration Morphine Sulfate 4 mg 04/09/25 22:10 04/09/25 22:16 Morphine 4mg/Ml Syringe IV 04/09/25 22:11 4 mg ONCE ONE Administration Morphine Sulfate 4 mg 04/09/25 23:39 04/09/25 23:47 Morphine 4mg/Ml Syringe IV 04/09/25 23:40 4 mg ONCE ONE Administration Ondansetron HCl 4 mg 04/10/25 00:07 04/10/25 00:15 Ondansetron 4mg/2ml Vial IV 04/10/25 00:08 4 mg ONCE ONE Administration ORDERS Category Date Time Status CXR --portable [XR chest portable] Stat Exams 04/09/25 20:05 Completed BNP [NT Pro Brain Natriuretic Pep.] Stat Lab 04/09/25 19:37 Completed CBC w/Auto Diff [Complete Blood Count Auto Diff] Stat Lab 04/09/25 19:37 Completed CMP [Comprehensive Metabolic Panel] Stat Lab 04/09/25 19:37 Completed D-Dimer Stat Lab 04/09/25 19:37 Completed Trop I [Troponin I] Stat Lab 04/09/25 19:37 Completed Troponin I Q3H Lab 04/09/25 23:17 Completed Medical Decision Narrative: Patient is a 54-year-old female who presented to the emergency department with chest pain. On arrival, patient was hemodynamically stable with unremarkable vital signs. Differential includes but not limited to: ACS/NJ, pneumothorax, pleural effusion, PE, viral syndrome, costochondritis, amongst others. Patient's labs were reviewed and interpreted by myself: CBC showed no leukocytosis, hemoglobin was stable. D-dimer mildly elevated at 0.51. CMP unremarkable. Initial troponin less than 0.01, second troponin less than 0.01. Chest x-ray was reviewed and interpreted by myself and showed no acute for consolidation, pneumothorax, pleural effusion or other acute cardiopulmonary process. Patient received medications in the emergency department and reported improvement in her pain. Patient does have a moderate heart score however after long discussion with the patient, she does not wish to come into the hospital for further cardiac workup given that she has a stress test scheduled on Tuesday. Patient's D-dimer is mildly elevated at 0.51 it is negative by years criteria. At this time, after shared decision making, patient was discharged home in stable condition. Return precautions were discussed and patient was discharged home in stable condition. Critical Care Critical Care Time Critical Care Time: No
--- NOTE | 2025-04-09 19:58 | ECG_ITS ---
APPROVED REPORT Exam: Resting ECG HR:75 bpm ECG Measurements Heart Rate 75 AXES [place] 196 P 57 QRSd 86 QRS 71 QT 413 T 58 QTc 442 Conclusion SINUS RHYTHM NORMAL ECG UNCONFIRMED REPORT Electronically signed by : YUNG BLANCO, 04/10/2025 07:44:05
--- NOTE | 2025-04-09 20:05 | XR_ITS ---
PROCEDURE INFORMATION: Exam: XR Chest Exam date and time: 04/09/2025 8:29 PM Age: 54 years old Clinical indication: Pain; Chest pressure; Additional info: Chest pain and shortness of breath TECHNIQUE: Imaging protocol: Radiologic exam of the chest. Views: 1 view. COMPARISON: CR XR CHEST PORTABLE 03/29/2025 11:16 PM FINDINGS: Lungs: Unremarkable. No consolidation. Pleural spaces: Unremarkable. No pleural effusion. No pneumothorax. Heart/Mediastinum: Unremarkable. No cardiomegaly. Bones/joints: Unremarkable. IMPRESSION: No acute findings.
[2025-04-09 20:06] VITALS: PULSE 82
--- OUTSIDE RECORDS SUMMARY | 2025-04-09 20:09 | XMS_ITS | Encounter Summary ---
Author Organization [facility] Address [address] [place] [address] Care Team Providers Care 3Rd Grade Teacher Name Role Phone Xavier Esposito MD Primary Care Provider + Reason for Visit * Reason Comments Med Refill Encounter Details Date Type Department Care Team (Late st Contact Info) Description 04/02/2025 Refill [facility] FAMILY MEDICINE [address] [place] [address] Xavier Esposito MD [address] [place] [address] Social History Tobacco Use Types [...] on file documented as of this encounter Plan of Treatment Not on file documented as of this encounter Visit Diagnoses Not on filedocumented in this encounter Care Teams 3Rd Grade Teacher Relationship Specialty Start Date End Date Xavier Esposito MD [address] [place] [address] PCP - General Family Medicine 09/24/24 documented as of this encounter
--- OUTSIDE RECORDS SUMMARY | 2025-04-09 20:09 | XMS_ITS | Clinical Summary ---
Author Organization [facility] Address [address] [place] [address] Care Team Providers Care Referral Manager Name Role Phone Xavier Esposito MD Primary [...] Medications fluticasone (FLONASE) 50 MCG/ACT nasal spray 05/02/20 23 Active hydrocortisone 1 % cream 08/29/19 24 Active levothyroxine (SYNTHROID, LEVOTHROID) 25 MCG tablet Take 1 tablet by mouth Daily. 06/07/20 23 Active loperamide (IMODIUM) 2 MG capsule 05/12/20 23 Active benzonatate (Tessalon Perles) 100 MG capsule Take 1 capsule by mouth 3 (Three) Times a Day As Needed for Cough. 30 capsule 10/06/19 25 Active albuterol (PROVENTIL) (2.5 MG/3ML) 0.083% nebulizer solution Take 2.5 mg by nebulization . 02/02/20 25 Active clonazePAM (KlonoPIN) 0.5 MG tablet Take 1 tablet by mouth Daily. Active omeprazole (priLOSEC) 40 MG capsuleIndicati ons:Gastroesoph ageal reflux disease without esophagitis Take 1 capsule by mouth Daily. 30 capsule 1 02/06/20 25 Active Umeclidinium-Vi lanterol (Anoro Ellipta) 62.5-25 MCG/ACT aerosol powder inhalerIndicati ons:Chronic obstructive pulmonary disease, unspecified COPD type Inhale 1 puff Daily. 60 each 5 02/28/20 25 Active promethazine (PHENERGAN) 25 MG tablet TAKE 1 TABLET BY MOUTH EVERY 6 HOURS NEEDED FOR NAUSEA AND VOMITING 30 tablet 04/03/20 25 Active promethazine (PHENERGAN) 25 MG tablet Take 1 tablet by mouth Every 6 (Six) Hours As Needed for Nausea or Vomiting. 30 tablet 03/07/20 25 025 Discontinued Active Problems Problem Noted Date Diagnosed Date [...] of the L-spine in ER visit at [facility] revealing mild to moderate degenerative changes with mild L4 and L5 retrolisthesis which is stable, no acute abnormality. Referring to pain management for further evaluation, noting up until recently had been prescribed Murdock 10 mg 4 times daily and gabapentin [...] Dr. Oswaldo Carrasquillo of general surgery in [place], patient indicating had 2 polyps left in [...] (09/08/2023 6:18 PM EST): Obtain records from [facility]. Keep [facility] follow-up. 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 Vaginal Pap smear with LGSIL 08/25/2022 Resolved Problems Problem Noted Date Diagnosed Date Resolved Date Chronic back pain 10/22/2022 09/08/2023 Cervical myelopathy 11/25/2021 09/08/19 24 Overview (09/06/2023): Added automatically from request for surgery [id number] Encounters Date Type Department Care Team Description 04/02/2025 Refill [facility] FAMILY MEDICINE [address] [place] [phone] Xavier Esposito MD 03/05/2025 Refill [facility]INE [address] [phone] Xavier Esposito MD 02/28/2025 [facility] FAMILY MEDICINE [address] [address] Xavier Esposito MD Advice Only 02/26/2025 [facility] FAMILY MEDICINE [address] [place] [phone] Xavier Esposito MD New Med Request 02/26/2025 [facility] FAMILY MEDICINE [address] [phone] Xavier Esposito MD REFERRAL REQUEST 02/26/2025 Refill [facility] [address] [address] Xavier Esposito MD Chronic obstructive pulmonary disease, unspecified COPD type 02/05/2025 11:00 AM EDT Office Visit [facility] [address] [address] Xavier Esposito MD Lung disease (Primary Dx); [...] 02/05/2025 11:18 AM EDT Plan of Treatment Health Maintenance Due Date Last Done Comments Annual Gynecologic Pelvic and Breast Exam 1970 Pneumococcal Vaccine 50+ (1 of 2 - PCV) 11/15/1990 TDAP/TD VACCINES (1 - Tdap) 11/15/1990 ZOSTER VACCINE (1 of 2) 11/15/2021 ANNUAL PHYSICAL 09/01/2023 INFLUENZA VACCINE 02/22/2025 COVID-19 Vaccine (2 - 2024- season) 2025 MAMMOGRAM 11/13/2025 05/25/2023, 02/25/2023 HEPATITIS C SCREENING Completed 09/07/2024, 024 Procedures Procedure Name Priority Date/Time Associated Diagnosis Comments SCANNED - MAMMO 02/25/2023 from Last 3 Months or Most Recently Relevant to Health Maintenance Results * MAMMO Scan (02/25/2023) Anatomical Region Laterality Modality Other Peggy Khoury APRN CHART REVIEW TABS Final Result from Last 3 Months or Most Recently Relevant to Health Maintenance Insurance [place] [address] Care Teams Referral Manager Relationship Specialty Start Date End Date Xavier Esposito MD [address] [address] PCP - General Family Medicine 09/24/24
--- OUTSIDE RECORDS SUMMARY | 2025-04-09 20:09 | XMS_ITS | Encounter Summary ---
Author Organization [facility] Address [address] [place] [address] Care Team Providers Care Travel Pta Name Role Phone Xavier Esposito MD Primary Care Provider + Reason for Visit * Reason Onset Date Comments Advice Only 02/28/2025 Encounter Details Date Type Department Care Team (Late st Contact Info) Description 02/28/2025 Telephone [facility] FAMILY MEDICINE [address] [place] [address] Xavier Esposito MD [address] [place] [address] Advice Only Social History Tobacco [...] stated that she was not going to [facility] and didn't have a way to [...] WANT TO GO TO [facility], I OFFERED A APPOINTMENT WITH [facility] BUT SHE WOULD LIKE TO TALK WITH SOMEONE TO SEE WHAT THEY ADVISE HER TO DO. documented in this encounter Plan of Treatment Not on file documented as of this encounter Visit Diagnoses Not on filedocumented in this encounter Care Teams Travel Pta Relationship Specialty Start Date End Date Xavier Esposito MD [place] [address] PCP - General Family Medicine 09/24/24 documented as of this encounter
--- OUTSIDE RECORDS SUMMARY | 2025-04-09 20:09 | XMS_ITS | Encounter Summary ---
Author Organization [facility] Address [address] [place] [address] Care Team Providers Care Abalone Diver Name Role Phone Xavier Esposito MD Primary Care Provider + Reason for Visit * Reason Onset Date Comments Med Refill 03/05/2025 Encounter Details Date Type Department Care Team (Late st Contact Info) Description 03/05/2025 Refill [facility] MEDICINE [address] [place] [address] Xavier Esposito MD [address] [place] [address] Social History Tobacco Use Types [...] Kamara Relationship: Self Best call back number: [phone] Requested Prescriptions: Requested Prescriptions Pending Prescriptions Disp Refills promethazine (PHENERGAN) 25 MG tablet HYDROCODONE Pharmacy where request should be sent: [facility] [place] [address] [id number] s - [phone] - [phone] FX Last office visit with prescribing clinician: [...] on filedocumented in this encounter Care Teams Abalone Diver Relationship Specialty Start Date End Date Xavier Esposito MD [address] [place] [address] PCP - General Family Medicine 09/24/24 documented as of this encounter
--- OUTSIDE RECORDS SUMMARY | 2025-04-09 20:09 | XMS_ITS | Encounter Summary ---
Author Organization [facility] Address [address] [place] [address] Care Team Providers Care Machine Operator Farmworker Name Role Phone Xavier Esposito MD Primary Care Provider + Reason for Visit * Reason Onset Date Comments New Med Request 02/26/2025 Encounter Details Date Type Department Care Team (Late st Contact Info) Description 02/26/2025 Telephone [facility] FAMILY MEDICINE [address] [place] [address] Xavier Esposito MD [address] [place] [address] New Med Request Social History [...] your preferred pharmacy and phone number: [facility] [place] - [address] [place] [address] [address] - [phone] - [phone] FX [phone] Additional notes: PATIENT HAD BEEN SEEING PAIN [...] on filedocumented in this encounter Care Teams Machine Operator Farmworker Relationship Specialty Start Date End Date Xavier Esposito MD [address] [address] PCP - General Family Medicine 09/24/24 documented as of this encounter
--- OUTSIDE RECORDS SUMMARY | 2025-04-09 20:09 | XMS_ITS | Encounter Summary ---
Author Organization [facility] Address [address] [place] [address] Care Team Providers Care Nut Sorter Operator Name Role Phone Xavier Esposito MD Primary Care Provider + Reason for Visit * Reason Onset Date Comments REFERRAL REQUEST 02/26/2025 Encounter Details Date Type Department Care Team (Late st Contact Info) Description 02/26/2025 Telephone [facility] FAMILY MEDICINE [address] [place] [address] Xavier Esposito MD [address] [place] [address] REFERRAL REQUEST Social History Tobacco [...] HAS SEEN MOST OF THE PROVIDERS IN [place] [facility]. I TOLD HER I WOULD TRY [...] on filedocumented in this encounter Care Teams Nut Sorter Operator Relationship Specialty Start Date End Date Xavier Esposito MD [address] [place] [address] PCP - General Family Medicine 09/24/24 documented as of this encounter
--- OUTSIDE RECORDS SUMMARY | 2025-04-09 20:09 | XMS_ITS | Encounter Summary ---
Author Organization [facility] Address [address] [place] [id number] Care Team Providers Care Umbrella Tipper Machine Name Role Phone Xavier Esposito MD Primary Care Provider + Reason for Visit * Reason Onset Date Comments Med Refill 02/26/2025 Encounter Details Date Type Department Care Team (Late st Contact Info) Description 02/26/[address] [facility] [address] [place] [address] Xavier Esposito MD [address] [place] [address] Chronic obstructive pulmonary disease, unspecified [...] Pharmacy where request should be sent: [facility] [place] - [address] [place] [address] [address] - [phone] - [phone] FX Last office visit with prescribing clinician: [...] type documented in this encounter Care Teams Umbrella Tipper Machine Relationship Specialty Start Date End Date Xavier Esposito MD [address] [place] [address] PCP - General Family Medicine 09/24/24 documented as of this encounter
[2025-04-09 20:12] LABS: Hematocrit 36.3 % (37.0-47.0); Hemoglobin 11.8 g/dL (12.2-16.2); Immature Granulocytes % 0.2 %; Mean Corpuscular HGB Conc 32.5 g/dL (31.8-35.4); Mean Corpuscular Hemoglobin 29.9 pg (27.0-31.2); Mean Corpuscular Volume 92.1 fl (81-99); Nucleated Red Blood Cells % 0 %; Platelet Count 332 K/mm3 (142-424); Red Blood Count 3.94 M/mm3 (4.20-5.40); Red Cell Distribution Width-SD 52.8 fL; White Blood Count 6.3 K/mm3 (4.8-10.8)
[2025-04-09 20:29] LABS: Alanine Aminotransferase 28 U/L (12-78); Albumin Level 4.8 g/dl (3.5-5.0); Albumin/Globulin Ratio 1.5 (1.1-1.8); Alkaline Phosphatase 117 U/L (38-126); Anion Gap 15.4 mEq/L (5-15); Aspartate Amino Transferase 74 U/L (14-36); Bilirubin,Total 0.7 mg/dl (0.2-1.3); Blood Urea Nitrogen 5 mg/dl (7-17); Calcium 9.1 mg/dl (8.4-10.2); Carbon Dioxide 23 mmol/L (22.0-30.0); Chloride 100 mmol/L (98-107); Creatinine Clearance Estimated 105 mL/min (50-200); Creatinine,Serum 0.60 mg/dl (0.52-1.04); Estimated Glomerular Filt Rate 105 ml/min (>60); GFR (African American) 127 ML/MIN (>60); Globulin 3.2 g/dL (1.3-3.2); Glucose 81 mg/dl (74-100); Potassium 3.4 mmoL/L (3.5-5.1); Sodium 135 mmol/L (136-145); Total Protein,Serum 8.0 g/dl (6.3-8.2)
[2025-04-09 20:32] LABS: D-Dimer 0.51 ug/mL (0.0-0.5)
[2025-04-09 20:40] LABS: NT Pro Brain Natriuretic Pep. 133 pg/mL (0-125)
[2025-04-09 20:41] LABS: Troponin I < 0.01 ng/ml (0.00-0.034)
[2025-04-09 21:37] VITALS: BP 167/91; PULSE 83; RESP 15; O2SAT 96
[2025-04-09 21:40] VITALS: BP 161/81; PULSE 78; RESP 14; O2SAT 96
[2025-04-09 22:00] VITALS: BP 153/86; PULSE 76; RESP 12; O2SAT 98
[2025-04-09] MEDS: MORPHINE 4MG/ML SYRINGE 4 MG IV ×2 (22:16→23:47)
--- NOTE | 2025-04-09 23:21 | PC.NURSE ---
2nd trop in lab
[2025-04-09 23:49] LABS: Troponin I < 0.01 ng/ml (0.00-0.034)
[2025-04-10] MEDS: ONDANSETRON 4MG/2ML VIAL 4 MG IV (00:15)
[2025-04-10 00:29] VITALS: BP 153/86; PULSE 76; RESP 20; TEMP 36.8; O2SAT 98
== END 2025-04-10 00:31 | disposition home or self-care (01) ==
PROVIDERS: Emergency Provider Student in an Organized Health Care Education/Training Program
DX: R07.9 Chest pain, unspecified (principal); F17.290 Nicotine dependence, other tobacco product, uncomplicated; E78.5 Hyperlipidemia, unspecified
CPT/HCPCS: 71045; 80053; 83880; 84484; 85025; 85378; 93005; 96374; 96375; 96376; 99285; J2270; J2405

== ENCOUNTER 2025-05-15 13:08 | Outpatient (CLI) | payer MEDICAID, SELFPAY ==
--- OUTSIDE RECORDS SUMMARY | 2025-04-22 08:15 | XMS_ITS | Encounter Summary ---
Author Organization [facility] Address [address] [place] [address] Care Team Providers Care Tool Or Die Drawing Checker Name Role Phone Xavier Esposito MD Primary Care Provider + Reason for Visit * Reason Comments FU from [facility] discharge Pt has already had fu w/ Cardio since her discharge. Pt also seen Pulm last week. Encounter Details Date Type Department Care Team (Late st Contact Info) Description 04/22/2025 8:15 AM EDT Office Visit [facility] [address] [place] [address] Xavier Esposito MD [address] [place] [address] Atypical chest pain (Primary Dx); Chronic neck and back pain; Anxiety; Fibromyalgia; Tear of left rotator cuff, unspecified tear extent, unspecified whether traumatic Social History Tobacco Use Types Packs/Day Years Used Date Smoking Tobacco: Never Smokeless Tobacco: Current Snuff Tobacco Cessation:Ready to Q uit: No; Counseling Given: Not Answered Alcohol Use Standard Drinks/Week Comments Yes 1 [...] Sign Reading Time Taken Comments Blood Pressure 135/85 04/22/2025 8:29 AM EDT Pulse 93 04/22/2025 8:29 AM EDT Temperature 36.7 C (98 F) 04/22/2025 8:29 AM EDT Respiratory Rate 24 04/22/2025 8:29 AM EDT Oxygen Saturation 100% 04/22/2025 8:29 AM EDT Inhaled Oxygen Concentration - - Weight 66 kg (145 lb 6.4 oz) 04/22/2025 8:29 AM EDT Height 162.6 cm (5' 4 ) 04/22/2025 8:29 AM EDT Body Mass Index 24.96 04/22/2025 8:29 AM EDT documented in this encounter Progress Notes * Xavier Esposito MD - 04/22/2025 8:15 AM EDT Chief Complaint Patient presents with FU from [facility] discharge Pt has already had fu w/ Cardio since her discharge. Pt also seen Pulm last week. Subjective Tonya Kamara is a 54 y.o. who presents for follow-up of 2 emergency room visits as well as a health update. Chest pain. Patient claims to have had been admitted at [facility] in mid February for 1-1/2 weeks with chest pain. Apparent plan had been to perform left heart catheterization but patient claims that contrast dye. She was premedicated for this but then became afraid to proceed with the procedure. She returned to the emergency room about a week and a half ago with an episode of chest tightness. [place] was ruled out in the emergency room. She followed up with her tonal regulator ([facility] cardiology) and a heart monitor was placed which she is still wearing. She is to return to cardiology next week. Suspected COPD. Patient was referred to pulmonology at her last visit. She has been keeping her follow-ups as instructed and will be undergoing some additional testing in the near future. Chronic spinal pain. She continues to see pain management although her dose of hydrocodone was reduced to 7.5 mg 3 times daily. She believes she would benefit from 4 times daily dosing. She has follow-up in 48 hours with her neck surgeon. In regards to her overall pain she describes riding in a caras being painful. Anxiety. She is claims she will not see behavioral health at [facility] anymore. The following portions of the patient's history were reviewed and updated as appropriate: allergies, current medications, past family history, past medical history, past social history, past surgicalhistory, and problem list. Review of Systems Objective Vital Signs: BP 135/85 Pulse 93 Temp 98 ??F (36.7 ??C) Resp 24 Ht 162.6 cm (64 ) Wt 66 kg (145 lb 6.4 oz) SpO2 100% BMI 24.96 kg/m?? BMI is within normal parameters. No other follow-up for BMI required. Physical Exam Vitals reviewed. Constitutional: Appearance: Normal appearance. Neurological: Mental Status: She is alert. Result Review Assessment and Plan Diagnoses and all orders for this visit: 1. Atypical chest pain (Primary) 2. Chronic neck and back pain 3. Anxiety 4. Fibromyalgia 5. Tear of left rotator cuff, unspecified tear extent, unspecified whether traumatic Plan 1. For her chest pain she will follow-up with cardiology although it seems to be noncardiac related.. I have asked the patient to inform her tonal regulator that I am her primary care physician so we can obtain records. In addition records from her hospitalization and ER visit will be requested from [facility] and reviewed 2. For her chronic pain she will continue to follow with pain management 3. For her neck pain she will follow-up with her surgeon as scheduled 4. I have recommended to the patient she be under the care of a behavioral health provider to help with medication management. Patient declines at this time 5. Fibromyalgia impacts all aspects of care, specifically intensity of pain as well as expectationsof treatment 6. Patient will follow-up with Dr. Hopkins regarding her left rotator cuff tear. Follow Up No follow-ups on file. Patient was given instructions and counseling regarding her condition or for health maintenance advice. Please see specific information pulled into the AVS if appropriate. documented in this encounter Plan of Treatment Not on file documented as of this encounter Visit Diagnoses Diagnosis Atypical chest pain- Primary Other chest pain Chronic neck and back pain Anxiety Anxiety state, unspecified Fibromyalgia Unspecified myalgia and myositis Tear of left rotator cuff, unspecified tear extent, unspecified whether traumatic documented in this encounter Care Teams Tool Or Die Drawing Checker Relationship Specialty Start Date End Date Xavier Esposito MD [address] [place] [id number] PCP - General Family Medicine 09/24/24 documented as of this encounter
--- OUTSIDE RECORDS SUMMARY | 2025-05-03 15:50 | XMS_ITS | Encounter Summary ---
Author Organization Healthcare Address [address] [place], [place] [address] Care Team Providers Care Circle Beveler Name Role Phone Renard Garcia MD Unavailable [phone] Yohana Aragon DO Unavailable [phone] Yvette Velarde COMMISSARY OFFICER Unavailable [phone] Pcp, No Primary Care Provider Unavailabl e Reason for Referral * Consultation (Routine) - Authorized Specialty Diagnoses / Procedures Referred By Eda howard Referred To Contact Internal Medicine Diagnoses Other chronic back pain Kaushik Gutierrez MD [address] [place] [address] Phone: tel: fax: Referral ID Status Reason Start Date Expiration Date Visits Requested Visits Authorized [id number] Authorized Specialty Services Required 5 11/02/2026 1 1 Reason for Visit * Reason Comments Chest Pain Encounter Details Date Type Department Care Team ([facility] st Contact Info) Description 05/03/2025 3:50 PM EDT - 05/03/2025 9:25 PM EDT Emergency [facility] Emergency Department [address] [place] [address] Kaushik Gutierrez MD [address] [place] [address] Other chest pain (Primary Dx); Generalized abdominal pain; Other chronic back pain Discharge Disposition: Home or Self Care [...] Sign Reading Time Taken Comments Blood Pressure 154/99 05/03/2025 9:23 PM EDT Pulse 87 05/03/2025 9:23 PM EDT Temperature 36.6 C (97.9 F) 05/03/2025 9:23 PM EDT Respiratory Rate 20 05/03/2025 9:23 PM EDT Oxygen Saturation 98% 05/03/2025 9:23 PM EDT Inhaled Oxygen Concentration - - Weight - - Height - - Body Mass Index - - documented in this encounter Functional Status * Calculated C-SSRS Risk Score (Lifetime/Recent) Answer Date of Assessment Author No Risk Indicated 05/03/2025 5:38 PM EDT Peggy Alvarez RN * Question Answer Date of Assessment Author 1. Wish to be (Past 1 Month) No 025 5:38 PM EDT Peggy Alvarez RN 2. Non-Specific Active Suici shea Thoughts (Past 1 Month) No 05/03/2025 5:38 PM EDT Paulette Alvarez RN 6. Suicidal Behavior (Lifetime) No 5:38 PM EDT Peggy Alvarez RN documented as of this encounter Discharge Instructions * Discharge Instructions* Maksim Jennings MD - 05/03/2025 9:13 PM EDT You were seen and evaluated in the emergency department today for chest pain and abdominal pain. Atthis time we have done a full workup including CT scans and labs and EKG. At this time we have beenable to rule out any acute coronary symptoms or syndrome and your CT and lab work did not show anything needing an emergent intervention. At this time your symptoms have started to go down and we areable to safely send you home at this time. Please continue to follow up with your primary care provider for symptom management outpatient. Please return to ED if your symptoms worsen, change in location, change in severity, new symptoms [...] (Tricor) 145 MG tablet 08/08/2024 HYDROcodone-acet aminophen ([place]) 10-325 MG tablet Take 1 tablet (10 [...] as of this encounter Miscellaneous Notes * ED Provider Notes - Maksim Jennings MD - 05/03/2025 2:45 PM EDT - HPI Chief Complaint Patient presents with Chest Pain Tonya Kamara is a 54 y.o. female who presents to the ED with chest pain. Pt c/o chest tightness,arm numbness back pain, and neck pain. She endorses shortness of air. Pt reports she was told she cannot use her nebulizer until she was seen at ED. Pt endorses taking aspirin. Pt denies blood thinners. Pt denies fever, chills, N/V/D, abdominal pain. MAIN ED NOTE//Maksim Jennings MD: I assumed full responsibility for this patient after transfer to Main ED from [facility]. I personally performed my own history, ROS, and physical. I agree with the above [facility] documentation with the following additions/exceptions: Tonya Kamara is a 54 y.o. female with past medical history of cervical myelopathy/radiculopathy,chronic abdominal/neck/back pain, HLD, depression, who presents to the emergency department with complaint of chest pressure and back pain. Also states she has some new abdominal pain that could be related to her back pain. Patient states she has had increasing diarrhea and may have noted blood in her stool, endorses bright and dark blood in her stool. History provided by: Patient historic interpreter used: No Patient History Past Medical History[1] Surgical History[2] Family History[3] Social History[4] Allergies: Allergies[5] Physical Exam ED Triage Vitals [05/03/25 1454] Temp Heart Rate Resp BP 36.5 ??C (97.7 ??F) 96 18 (!) 146/89 SpO2 Temp Source Heart Rate Source Patient Position 100 % Oral -- Sitting BP Location FiO2 (%) Right arm -- Physical Exam Constitutional: General: She is not in acute distress. HENT: Head: Normocephalic. Comments: No facial swelling Right Ear: External ear normal. Left Ear: External ear normal. Mouth/Throat: Mouth: Mucous membranes are moist. Pharynx: Oropharynx is clear. Eyes: Pupils: Pupils are equal, round, and reactive to light. Cardiovascular: Rate and Rhythm: Normal rate and regular rhythm. Pulmonary: Effort: Pulmonary effort is normal. No respiratory distress. Breath sounds: Normal air entry. Comments: Speaking full sentences. Symmetric chest rise Abdominal: General: There is no distension. Palpations: Abdomen is soft. Tenderness: There is abdominal tenderness. There is no right CVA tenderness, left CVA tenderness orrebound. Comments: Generalized abdominal tenderness Musculoskeletal: General: No deformity. Normal range of motion. Cervical back: Normal range of motion. Comments: Atraumatic, moves all extremities spontaneously Skin: Capillary Refill: Capillary refill takes less than 2 seconds. Neurological: Mental Status: She is alert. Mental status is at baseline. Comments: Awake Psychiatric: Behavior: Behavior normal. Negro Coma Scale Score: 15 ED Course & MDM - Assessment: 54 y.o. female presents to ED with complaint of chest pain abdominal pain. It should be noted that the chronic conditions includes anxiety COPD asthma, which currently is not at goal therapy. This complicates the clinical picture because it Comorbidities: may be exacerbating symptoms Differential Diagnosis: COPD exacerbation, pneumonia, ACS, pancreatitis In order to fully explore the differential diagnosis the following treatments and tests were ordered: All Other Orders Ordered Status Ordering Provider 05/03/25 1452 EKG now - STAT (adult) Once Preliminary result JOVON DERAS ED Course as of 05/03/252119May 03, 2025 1636 CBC w/diff(!) White count not elevated [SW] 1636 CMP(!) Kidney function intact no TAM [SW] 1636 Troponin now and 120 min [SW] 1636 BNP [SW] 1636 D-Dimer, Quantitative D-dimer negative [SW] 1636 Blood gas panel, venous(!) Non actionable [SW] 2020 Interactive discussion had with patient at bedside regarding her negative lab workup. Told herwe are currently pending her CT scan and if everything is negative and she will be able to do go home. Patient states she is hungry and wanting to leave soon, this is a good sign is it signifies she is able to tolerate things by mouth. Patient agrees to wait for the final read on the CT scan and then is agreeable to discharge. [SW] ED Course User Index [SW] Maksim Jennings MD Clinical Impressions as of 05/03/252119 Other chest pain Generalized abdominal pain Other chronic back pain Patient's EKG reviewed interpreted by me showed no acute ischemic changes. Patient's initial and final troponins were both less than 6 making any 0 delta troponin. At this time ACS was effectively ruled out. Patient's D-dimer was also negative for any acute elevations making PE highly unlikely. Patient's white count was not elevated and chest x-ray was clear making pneumonia unlikely at this time. CT abdomen pelvis was obtained given the patient's abdominal pain and inability to rule out the need for CT on physical exam. CT was negative for any acute pathology. Interactive discussion was had with patient at bedside regarding the negative workup. Patient expressed desire to go home and eat. Given the she has remained hemodynamically stable in the apartment and that her workup has been negative for any emergent causes for her symptoms patient is a stable discharge home. Patient agrees to have follow-up outpatient. Feels safe going home. Return precautionswere given inpatient was discharged home. Social Determinates of Health Risks (including Economic Stability, Education and level of understanding, Healthcare access and quality and concerning social factors): Poor health literacy Ultimately, this patient was Was discharged Home (Discharge) The primary encounter diagnosis was Other chest pain. Diagnoses of Generalized abdominal pain and Other chronic back pain were also pertinent to this visit. . Patient was counseled on thediagnoses. Discharge medications if any are listed below. Listed medications are thought be either curative for listed diagnoses or will help control ongoing symptoms. Patient is requested to follow up with Patient's Primary Care Provider in order to obtain routine follow-up. Instructions on followup as well as precautions to return to the ER provided verbally by the EM provider, as well as written in patients discharge education packet. ED Prescriptions None - Date/Time: 05/03/2025/3:07PM Entered by Azalea Alvarez, acting as scribe for Luis F Deras MD. Scribe Attestation: This note was dictated to me, Azalea Alvarez, acting as a scribe for Luis F Deras MD. Attending Attestation: The documentation was recorded by Azalea Alvarez acting as scribe in my presence at the time of the encounter and accurately reflects the service I personally performed. [1] Past Medical History: Diagnosis Date Awareness under anesthesia Back pain COPD (chronic obstructive pulmonary disease) Debility 09/07/24 Neck pain Personal history of other diseases [...] Date CHOLECYSTECTOMY HYSTERECTOMY Bilateral 2019 Hysterectomy from [facility] BSO Enterocele repair for pelvic pain, endometriosis and fibroidper outside notes OTHER SURGICAL HISTORY N/A [facility] SPINE SURGERY WISDOM TOOTH EXTRACTION N/A [place] tooth extraction from [facility] [3] Family History Problem Relation Name Age [...] Tramadol Hives, Itching and Swelling Latex Rash Maksim Jennings MD Resident 05/03/252227 Cosigned by Kaushik Gutierrez MD at 05/09/2025 8:11 AM EDT Associated attestation - Kaushik Gutierrez MD - 05/09/2025 8:11 AM EDT I saw and evaluated the patient with the resident/fellow. I discussed the case with the resident/fellow and agree with the findings and plan as documented. * ED Triage Notes - Stephanie Howard RN - 05/03/2025 2:45 PM EDT Pt complaining of chest pain and arm numbness. documented in this encounter Plan of Treatment Upcoming Encounters Date Type Department Care Team (Late st Contact Info) Description 05/29/2025 9:30 AM EST Office [facility] [address] [place] [address] Renard Garcia MD [address] [place] [address] 08/09/2025 12:20 PM EST Office Visit [facility] [address] [place] [address] Leanne Burks MD [address] [place] [address] Scheduled Referrals Name Type Priority Associated Diagnoses Order Schedule Discharge Ambulatory referral to Internal Medicine Outpatient Referral Routine Other chronic back pain Expected: 05/03/2025 (Approximate), Expires: 11/04/2026 documented as of this encounter Procedures Procedure Name Priority Date/Time Associated Diagnosis Comments CT ABDOMEN PELVIS WO IV CONTRAST STAT 05/03/2025 7:53 PM EDT TROPONIN T, HIGH SENSITIVITY, 2 HOUR, PLASMA Timed 05/03/2025 5:26 PM EDT XR CHEST 1 VIEW STAT 05/03/2025 4:27 PM EDT TROPONIN T, HIGH SENSITIVITY, 0 HOUR, PLASMA, REFLEX TO 2 HOUR STAT 05/03/2025 3:15 PM EDT D DIMER, QUANTITATIVE STAT 05/03/2025 3:15 PM EDT N-TERMINAL PROBNP, PLASMA STAT 05/03/2025 3:15 PM EDT CBC WITH AUTO DIFFERENTIAL STAT 05/03/2025 3:15 PM EDT BLOOD GAS PANEL, VENOUS STAT 05/03/2025 3:15 PM EDT COMPREHENSIVE METABOLIC PANEL, PLASMA STAT 05/03/2025 3:15 PM EDT ECG ADULT STAT 05/03/2025 2:57 PM EDT documented in this encounter Results * CT Abdomen Pelvis wo IV Contrast (05/03/2025 7:53 PM EDT) Anatomical Region Laterality Modality Abdomen, Pelvis Computed Tomogra phy Impressions 05/03/2025 8:43 PM EDT 1. Unremarkable unenhanced examination of the abdomen and pelvis. CRITICAL RESULT: No. COMMUNICATION: Per this written report. Drafted by Yohana Nguyen MD on 05/03/2025 8:31 PM Final report signed by Yohana Nguyen MD on 05/03/2025 8:43 PM Narrative 05/03/2025 8:43 PM EDT CLINICAL INDICATION: Abdominal pain, acute, nonlocalized TECHNIQUE: Imaging of the abdomen and pelvis was performed from lung bases through pubic symphysis, using spiral technique, without administration of IV contrast. Reformatted images in the coronal and sagittal planes were generated from the axial data set to facilitate diagnostic accuracy. Total DLP (Dose-Length Product): 439.54 mGy.cm. Please note: The reported value represents the total of one or more individual components during the CT acquisition on this date and at this time, and as such, the same value may appear in more than one CT report depending on the interpreting/reporting physicians. COMPARISON: September 20, 2024. FINDINGS: Lack of IV contrast limits evaluation of abdominal and pelvic organs. Lung Bases: The lung bases are clear. Liver/Gallbladder/Biliary System: The liver demonstrates no focal lesion. Prior cholecystectomy. No intra- or extra-hepatic biliary ductal dilatation. Spleen: The spleen is normal. Pancreas: The pancreas is normal. Adrenals: The adrenals are morphologically unremarkable. Kidneys: The kidneys are normal. No renal or ureteral calculi. No hydronephrosis. Bowel/Mesentery: The small bowel loops are not dilated. The large bowel loops are not dilated. The appendix is within normal limits.. Vessels/Lymph Nodes: The abdominal aorta is unremarkable. No lymphadenopathy within the abdomen or pelvis. Fluid Survey: No free fluid in the abdomen. No free fluid in the pelvis. Pelvis: Prior hysterectomy. Mild distention of the urinary bladder. Body Wall: Normal. Bones: No acute fracture. Mild degenerative changes of the spine. L4 limbus vertebra. Unchanged minimal anterolisthesis of L3 on L4. Procedure Note Yohana Nguyen MD - 05/03/2025 CLINICAL INDICATION: Abdominal pain, acute, nonlocalized TECHNIQUE: Imaging of the abdomen and pelvis was performed from lung bases throughpubic symphysis, using spiral technique, without administration of IVcontrast. Reformatted images in the coronal and sagittal planes weregenerated from the axial data set to facilitate diagnostic accuracy. Total DLP (Dose-Length Product): 439.54 mGy.cm. Please note: The reportedvalue represents the total of one or more individual components during theCT acquisition on this date and at this time, and as such, the same valuemay appear in more than one CT report depending on theinterpreting/reporting physicians. COMPARISON: September 20, 2024. FINDINGS: Lack of IV contrast limits evaluation of abdominal and pelvic organs. Lung Bases: The lung bases are clear. Liver/Gallbladder/Biliary System: The liver demonstrates no focal lesion.Prior cholecystectomy. No intra- or extra-hepatic biliary ductaldilatation. Spleen: The spleen is normal. Pancreas: The pancreas is normal. Adrenals: The adrenals are morphologically unremarkable. Kidneys: The kidneys are normal. No renal or ureteral calculi. Nohydronephrosis. Bowel/Mesentery: The small bowel loops are not dilated. The large bowelloops are not dilated. The appendix is within normal limits.. Vessels/Lymph Nodes: The abdominal aorta is unremarkable. Nolymphadenopathy within the abdomen or pelvis. Fluid Survey: No free fluid in the abdomen. No free fluid in the pelvis. Pelvis: Prior hysterectomy. Mild distention of the urinary bladder. Body Wall: Normal. Bones: No acute fracture. Mild degenerative changes of the spine. [id number] vertebra. Unchanged minimal anterolisthesis of L3 on L4. IMPRESSION: 1. Unremarkable unenhanced examination of the abdomen and pelvis. CRITICAL RESULT: No. COMMUNICATION: Per this written report. Drafted by Yohana Nguyen MD on 05/03/2025 8:31 PM Final report signed by Yohana Nguyen MD on 05/03/2025 8:43 PM us Kaushik Gutierrez MD IMG CT PROCEDURES Final Resul t * Troponin T, High Sensitivity, 2 Hour, Plasma (05/03/2025 5:26 PM EDT) Troponin T, High Sensitivity, 2 Hour <6 <14 ng/L 05/03/2025 6:02 PM EDT [facility] Blood Venous blood specimen / Unknown Venipuncture / Unknown 05/03/2025 5:26 PM EDT 05/03/2025 5:28 PM EDT Jovon Deras MD LAB BLOOD ORDERABLES Fi nal Result [facility] [address] [place] [address] * XR Chest 1 View (05/03/2025 4:27 PM EDT) Anatomical Region Laterality Modality Chest Digital Radiogra phy Impressions 05/03/2025 4:48 PM EDT . No acute findings. CRITICAL RESULT: No. COMMUNICATION: Per this written report. Drafted by Nasra Bliss MD on 05/03/2025 4:45 PM Final report signed by Nasra Bliss MD on 05/03/2025 4:48 PM Narrative 05/03/2025 4:48 PM EDT CLINICAL INDICATION: chest pain TECHNIQUE: XR CHEST 1 VIEW COMPARISON: January 29, 2025, CT abdomen 09/20/2024 FINDINGS: Stable cardiac mediastinal contours. No consolidation, pneumothorax or pleural effusion. Unchanged left basal hazy opacification secondary to prominent pericardial fat. No acute osseous abnormality. No subdiaphragmatic free air. Prior ACDF changes Procedure Note Nasra Bliss MD - 05/03/2025 CLINICAL INDICATION: chest pain TECHNIQUE: XR CHEST 1 VIEW COMPARISON: January 29, 2025, CT abdomen 09/20/2024 FINDINGS: Stable cardiac mediastinal contours. No consolidation, pneumothorax orpleural effusion. Unchanged left basal hazy opacification secondary toprominent pericardial fat. No acute osseous abnormality. Nosubdiaphragmatic free air. Prior ACDF changes IMPRESSION: . No acute findings. CRITICAL RESULT: No. COMMUNICATION: Per this written report. Drafted by Nasra Bliss MD on 05/03/2025 4:45 PM Final report signed by Nasra Bliss MD on 05/03/2025 4:48 PM Jovon Deras MD IMG XR PROCEDURES Final Result * D-Dimer, Quantitative (05/03/2025 3:15 PM EDT) D Dimer, Quantitative 0.42 <0.50 ug/mL FEU 05/03/2025 3:38 PM EDT [facility] Blood Venous blood specimen / Unknown Venipuncture / Unknown 05/03/2025 3:15 PM EDT 05/03/2025 3:20 PM EDT Narrative [facility] - 05/03/2025 3:38 PM EDT Test performed by STAGO D-dimer assay. Values greater than 0.50 ug/mL FEU should be evaluated for risk stratification of patients with possible venous thromboembolism. In addition to expected elevations following injury or surgery, D-dimer levels increase in normal and increase steadily with normal aging. Values in healthy individuals often exceed the VTE exclusion cutoff value, and should be considered in the clinical context. us Jovon Deras MD LAB BLOOD ORDERABLES Fi nal Result [facility] [address] [place] [address] * BNP (05/03/2025 3:15 PM EDT) N-Terminal, PROBNP, Plasma 77 0 - 899 pg/mL 05/03/2025 3:45 PM EDT [facility] Blood Venous blood specimen / Unknown Venipuncture / Unknown 05/03/2025 3:15 PM EDT 05/03/2025 3:20 PM EDT us Jovon Deras MD LAB BLOOD ORDERABLES Fi nal Result [facility] [address] [place] [address] * (ABNORMAL) Blood gas panel, venous (05/03/2025 3:15 PM EDT) pH, Venous 7.41 7.32 - 7.43 LAB HEMATOLOGY METHOD 05/03/2025 3:22 PM EDT [facility] pCO2, Venous 41 37 - 52 mmHg LAB HEMATOLOGY METHOD 05/03/2025 3:22 PM EDT [facility] pO2, Venous 29 25 - 40 mmHg LAB HEMATOLOGY METHOD 05/03/2025 3:22 PM EDT [facility] SO2, Measured, Venous 47(L) 65 - 80 % LAB HEMATOLOGY METHOD 05/03/2025 3:22 PM EDT [facility] Base Excess, Venous 0.9 -2.0 - 3.0 mmol/L LAB HEMATOLOGY METHOD 05/03/2025 3:22 PM EDT [facility] Bicarbonate, Calculated, Venous 26 22 - 26 mmol/L LAB HEMATOLOGY METHOD 05/03/2025 3:22 PM EDT [facility] Hematocrit, Whole Blood 40.4 34.0 - 45.0 % LAB HEMATOLOGY METHOD 05/03/2025 3:22 PM EDT [facility] Sodium, Whole Blood 144 136 - 145 mmol/L LAB HEMATOLOGY METHOD 05/03/2025 3:22 PM EDT [facility] Potassium, Whole Blood 3.7 3.6 - 4.9 mmol/L LAB HEMATOLOGY METHOD 05/03/2025 3:22 PM EDT [facility] Chloride, Whole Blood 104 97 - 107 mmol/L LAB HEMATOLOGY METHOD 05/03/2025 3:22 PM EDT [facility] Glucose, Whole Blood 80 74 - 99 mg/dL LAB HEMATOLOGY METHOD 05/03/2025 3:22 PM EDT [facility] Lactate, Venous, Whole Blood 1.5 0.5 - 2.2 mmol/L LAB HEMATOLOGY METHOD 05/03/2025 3:22 PM EDT [facility] Ionized Calcium, Whole Blood 4.9 4.6 - 5.1 mg/dL LAB HEMATOLOGY METHOD 05/03/2025 3:22 PM EDT [facility] Blood Venous blood specimen / Unknown Venipuncture / Unknown 05/03/2025 3:15 PM EDT 05/03/2025 3:20 PM EDT Jovon Deras MD LAB BLOOD ORDERABLES Fi nal Result Performing Organization Address City/[facility]/ZIP Co de Phone Number [facility] [address] [place] [address] * Troponin now and 120 min (05/03/2025 3:15 PM EDT) Troponin T, High Sensitivity, 0 Hour <6 <14 ng/L 05/03/2025 3:45 PM EDT [facility] Blood Venous blood specimen / Unknown Venipuncture / Unknown 05/03/2025 3:15 PM EDT 05/03/2025 3:20 PM EDT Jovon Deras MD LAB BLOOD ORDERABLES Fi nal Result Performing Organization Address City/[facility]/ZIP Co de Phone Number [facility] [address] [place] [address] * (ABNORMAL) CMP (05/03/2025 3:15 PM EDT) Glucose, Plasma 80 74 - 99 mg/dL 05/03/2025 3:54 PM EDT [facility] BUN, Plasma 6(L) 7 - 21 mg/dL 05/03/2025 3:54 PM EDT [facility] Creatinine, Plasma 0.52(L) 0.60 - 1.10 mg/dL 05/03/2025 3:54 PM EDT [facility] BUN/Creatinine Ratio 12 05/03/2025 3:54 PM EDT [facility] Sodium, Plasma 144 136 - 145 mmol/L 05/03/2025 3:54 PM EDT [facility] Potassium, Plasma 4.3 3.6 - 4.9 mmol/L 05/03/2025 3:54 PM EDT [facility] Comment:Hemolyzed, result ma y be falsely increased. Chloride, Plasma 100 97 - 107 mmol/L 05/03/2025 3:54 PM EDT [facility] CO2, Plasma 22 22 - 29 mmol/L 05/03/2025 3:54 PM EDT [facility] Anion Gap 22(H) 6 - 16 mmol/L 05/03/2025 3:54 PM EDT [facility] Total Calcium, Plasma 10.2 8.9 - 10.2 mg/dL 05/03/2025 3:54 PM EDT [facility] Total Protein 8.8(H) 6.3 - 7.9 g/dL 05/03/2025 3:54 PM EDT [facility] Albumin, Plasma 4.9 3.5 - 5.2 g/dL 05/03/2025 3:54 PM EDT [facility] AST, Plasma 57(H) 10 - 35 U/L 05/03/2025 3:54 PM EDT [facility] Comment:Hemolyzed, result ma y be falsely increased. ALT, Plasma 21 10 - 35 U/L 05/03/2025 3:54 PM EDT [facility] Alkaline Phosphatase, Plasma 129(H) 35 - 104 U/L 05/03/2025 3:54 PM EDT [facility] Total Bilirubin, Plasma 0.4 0.2 - 1.1 mg/dL 05/03/2025 3:54 PM EDT [facility] eGFRcr 111.3 mL/min/1.7 3m*2 05/03/2025 3:54 PM EDT [facility] Comment:Reported eGFRcr in m L/min/1.73m2 is based the CKD-EPI 2020 equation that does not use a race coefficient. Blood Venous blood specimen / Unknown Venipuncture / Unknown 05/03/2025 3:15 PM EDT 05/03/2025 3:20 PM EDT us Jovon Deras MD LAB BLOOD ORDERABLES Fi nal Result [facility] [address] [place] [address] * (ABNORMAL) CBC w/diff (05/03/2025 3:15 PM EDT) Pathologist [facility] WBC Count 7.20 3.70 - 10.30 10*3/uL LAB HEMATOLOGY METHOD 05/03/2025 3:22 PM EDT [facility] RBC Count 4.35 3.90 - 5.20 10*6/uL LAB HEMATOLOGY METHOD 05/03/2025 3:22 PM EDT [facility] HGB 13.0 11.2 - 15.7 g/dL LAB HEMATOLOGY METHOD 05/03/2025 3:22 PM EDT [facility] HCT 39.5 34.0 - 45.0 % LAB HEMATOLOGY METHOD 05/03/2025 3:22 PM EDT [facility] Platelet Count 407(H) 155 - 369 10*3/uL LAB HEMATOLOGY METHOD 05/03/2025 3:22 PM EDT [facility] MCV 91 79 - 98 fL LAB HEMATOLOGY METHOD 05/03/2025 3:22 PM EDT [facility] MCH 29.9 26.0 - 32.0 pg LAB HEMATOLOGY METHOD 05/03/2025 3:22 PM EDT [facility] MCHC 32.9 30.7 - 35.5 g/dL LAB HEMATOLOGY METHOD 05/03/2025 3:22 PM EDT [facility] RDW 15.1(H) 11.5 - 14.5 % LAB HEMATOLOGY METHOD 05/03/2025 3:22 PM EDT [facility] MPV 8.9 8.8 - 12.5 fL LAB HEMATOLOGY METHOD 05/03/2025 3:22 PM EDT [facility] nRBC 0.0 <=0.0 per 100 WBCs LAB HEMATOLOGY METHOD 05/03/2025 3:22 PM EDT [facility] Differential Type Automated LAB HEMATOLOGY METHOD 05/03/2025 3:22 PM EDT [facility] Neutrophils % 51 % LAB HEMATOLOGY METHOD 05/03/2025 3:22 PM EDT [facility] Lymphocytes % 45 % LAB HEMATOLOGY METHOD 05/03/2025 3:22 PM EDT [facility] Monocytes % 4 % LAB HEMATOLOGY METHOD 05/03/2025 3:22 PM EDT [facility] Eosinophils % 0 % LAB HEMATOLOGY METHOD 05/03/2025 3:22 PM EDT [facility] Basophils % 0 % LAB HEMATOLOGY METHOD 05/03/2025 3:22 PM EDT [facility] Immature Granulocytes % 0 % LAB HEMATOLOGY METHOD 05/03/2025 3:22 PM EDT [facility] Neutrophils Absolute 3.60 1.60 - 6.10 10*3/uL LAB HEMATOLOGY METHOD 05/03/2025 3:22 PM EDT [facility] Lymphocytes Absolute 3.25 1.20 - 3.90 10*3/uL LAB HEMATOLOGY METHOD 05/03/2025 3:22 PM EDT [facility] Monocytes Absolute 0.30 0.30 - 0.90 10*3/uL LAB HEMATOLOGY METHOD 05/03/2025 3:22 PM EDT [facility] Eosinophils Absolute 0.01 0.00 - 0.50 10*3/uL LAB HEMATOLOGY METHOD 05/03/2025 3:22 PM EDT [facility] Basophils Absolute 0.03 0.00 - 0.10 10*3/uL LAB HEMATOLOGY METHOD 05/03/2025 3:22 PM EDT [facility] Immature Granulocytes Absolute 0.01 0.00 - 0.06 10*3/uL LAB HEMATOLOGY METHOD 05/03/2025 3:22 PM EDT [facility] Blood Venous blood specimen / Unknown Venipuncture / Unknown 05/03/2025 3:15 PM EDT 05/03/2025 3:20 PM EDT Narrative [facility] - 05/03/2025 3:22 PM EDT Therapeutic decision making should be based on absolute values, rather than percentages. us Jovon Deras MD LAB BLOOD ORDERABLES Fi nal Result [facility] [address] [place] [address] * EKG now - STAT (adult) (05/03/2025 2:57 PM EDT) EKG DIAGNOSIS CLASS Normal MUSE ECG Ventricular Rate 91 BPM MUSE ECG Atrial Rate 96 BPM MUSE ECG MA Interval 152 ms MUSE ECG QRSD Interval 76 ms MUSE ECG QT Interval 372 ms MUSE ECG QTC Interval 457 ms MUSE ECG P [place] 50 degrees MUSE ECG R [place] 32 degrees MUSE ECG T Wave [place] 38 degrees MUSE ECG Diagnosis Normal sinus rhythm MUSE ECG Diagnosis MUSE ECG Diagnosis MUSE ECG Diagnosis Confirmed by Mark Luther ([id number]) on 05/03/2025 10:42:37 PM MUSE ECG 05/03/2025 2:57 PM EDT 05/03/2025 10:42 PM EDT Kaushik Gutierrez MD ECG ORDERABLES Final Result MUSE ECG documented in this encounter Visit Diagnoses Diagnosis Other chest pain- Primary Generalized abdominal pain Abdominal pain, generalized Other chronic back pain documented in this encounter Administered Medications Inactive Administered Medications - up to 3 most recent administrations Medication Order MAR Action Action Date Dose Rate Site acetaminophen (Tylenol) tablet 1,000 mg 1,000 mg, Oral, Once, 1 dose, On Tue05/03/25 at 1730, STAT Given 05/03/2025 5:35 PM EDT 1,000 mg droperidol (Inapsine) injection 2.5 mg 2.5 mg, Intravenous, Once, 1 dose, On Tue05/03/25 at 1830, Routine Given 05/03/2025 6:35 PM EDT 2.5 mg ipratropium-albuterol (Duo-Neb) 0.5-2.5 mg/3 mL nebulizer solution 3 mL 3 mL, Nebulization, Once, 1 dose, On Tue05/03/25 at 1510, STAT Given 05/03/2025 3:59 PM EDT 3 mL morphine PF 4 mg 4 mg, Intravenous, Once, 1 dose, On Tue05/03/25 at 1510, STAT Given 05/03/2025 3:22 PM EDT 4 mg ondansetron (Zofran) injection 4 mg 4 mg, Intravenous, Once, 1 dose, On Tue05/03/25 at 1510, STAT Given 05/03/2025 3:22 PM EDT 4 mg oxyCODONE (Roxicodone) immediate release tablet 5 mg 5 mg, Oral, Once, 1 dose, On Tue05/03/25 at 1930, STAT Given 05/03/2025 7:37 PM EDT 5 mg documented in this encounter Active and Recently Administered Medications Times are shown in EDT. Scheduled Medication Order 05/01/2025 05/02/2025 05/03/2025 acetaminophen (Tylenol) tablet 1,000 mg (COMPLETED) 1,000 mg, Oral, Once, 1 dose, On Tue05/03/25 at 1730, STAT 1735 (Given - Provid er: Peggy Alvarez RN) droperidol (Inapsine) injection 2.5 mg (COMPLETED) 2.5 mg, Intravenous, Once, 1 dose, On Tue05/03/25 at 1830, Routine 1835 (Given - Provid er: Peggy Alvarez RN) ipratropium-albuterol (Duo-Neb) 0.5-2.5 mg/3 mL nebulizer solution 3 mL (COMPLETED) 3 mL, Nebulization, Once, 1 dose, On Tue05/03/25 at 1510, STAT 1559 (Given - Provid er: Yohana To) lidocaine (Lidoderm) 5 % patch 1 patch 1 patch, Apply externally, Once, 1 dose, On Tue05/03/25 at 1730, Administer over 12 Hours, STAT 1735 (Not Given - Pr ovider: Peggy Alvarez RN - Reason: Patient/family refused - Comment: states she is allergic) morphine PF 4 mg (COMPLETED) 4 mg, Intravenous, Once, 1 dose, On Tue05/03/25 at 1510, STAT 1522 (Given - Provid er: Maksim Irizarry) ondansetron (Zofran) injection 4 mg (COMPLETED) 4 mg, Intravenous, Once, 1 dose, On Tue05/03/25 at 1510, STAT 1522 (Given - Provid er: Maksim Irizarry) oxyCODONE (Roxicodone) immediate release tablet 5 mg (COMPLETED) 5 mg, Oral, Once, 1 dose, On Tue05/03/25 at 1930, STAT 1937 (Given - Provid er: Daniela Coon) documented in this encounter Additional Health Concerns Assessment Noted Time A fall risk assessment has been complete d for the patient 11/10/2023 10:06 AM EDT A Body Mass Index follow-up plan has been documented for the patient 09/12/2024 3:08 PM EST documented as of this encounter Care Teams Circle Beveler Relationship Specialty Start Date End Date P[place], [place] [address] PCP - General Family Medicine 01/29/25 05/13/25 Renard Garcia MD [address] [place] [phone] Surgeon Neurosurgery 11/25/21 Yohana Aragon DO [address] [place] [address] Obstetrics and Gynecology 10/22/22 Yvette Velarde APRN [address] [place] [phone] Nurse Practitioner Neurosurgery 11/10/23 documented as of this encounter
--- NOTE | 2025-05-15 13:00 | MM_ITS ---
PROCEDURE INFORMATION: Exam: MG Bilateral Screening 3D Mammography Exam date and time: 05/15/2025 1:09 PM Age: 54 years old Clinical indication: Screening exam. TECHNIQUE: Imaging protocol: Bilateral Screening tomosynthesis and 2D mammography including computer-aided detection (CAD) when performed. COMPARISON: 1. MG MM DIG MAMM BI DX W/CAD 02/25/2023 3:09 PM 2. MG MM DIG SCREENING MAMM BI W/CAD 10/01/2019 10:47 AM FINDINGS: MAMMOGRAPHY: Breast composition: There are scattered areas of fibroglandular density. Mass: No suspicious masses. Architectural distortion: None. Calcifications: No suspicious calcifications. Asymmetric density: None. Skin thickening: None. Axillary adenopathy: None. IMPRESSION: No mammographic evidence of malignancy. Annual screening is recommended unless otherwise clinically indicated. ASSESSMENT: BI-RADS Category 1: Negative.
--- OUTSIDE RECORDS SUMMARY | 2025-05-15 13:53 | XMS_ITS | Clinical Summary ---
Author Organization [facility] Address [address] [place] [address] Care Team Providers Care Magistrate Judge Name Role Phone Xavier Esposito MD Primary [...] mg by nebulization . 02/02/20 25 Active Umeclidinium-Vi lanterol (Anoro Ellipta) 62.5-25 MCG/ACT aerosol powder inhalerIndicati ons:Chronic obstructive pulmonary disease, unspecified COPD type Inhale 1 puff Daily. 60 each 5 02/28/20 25 Active promethazine (PHENERGAN) 25 MG tablet TAKE 1 TABLET BY MOUTH EVERY 6 HOURS NEEDED FOR NAUSEA AND VOMITING 30 tablet 04/03/20 25 Active omeprazole (priLOSEC) 40 MG capsuleIndicati ons:Gastroesoph ageal reflux disease without esophagitis TAKE 1 CAPSULE BY MOUTH ONCE A DAY 30 capsule 1 04/17/20 25 Active aspirin 81 MG EC tablet Take 1 tablet by mouth Daily. Active atorvastatin (LIPITOR) 80 MG tablet Take 1 tablet by mouth every night at bedtime. Active gabapentin (NEURONTIN) 300 MG capsule Take 1 capsule by mouth 4 (Four) Times a Day. Active HYDROcodone-errol taminophen (NORCO) 7.5-325 MG per tablet Take 1 tablet by mouth 3 (Three) Times a Day. Active clonazePAM (KlonoPIN) 0.5 MG tablet Take 1 tablet by mouth Daily. 025 Discontinued(*T herapy completed) omeprazole (priLOSEC) 40 MG capsuleIndicati ons:Gastroesoph ageal reflux disease without esophagitis Take 1 capsule by mouth Daily. 30 capsule 1 02/06/20 25 025 Discontinued Active Problems Problem Noted [...] of the L-spine in ER visit at [facility] revealing mild to moderate degenerative changes with mild L4 and L5 retrolisthesis which is stable, no acute abnormality. Referring to pain management for further evaluation, noting up until recently had been prescribed Pomaria 10 mg 4 times daily and gabapentin [...] Dr. Oswaldo Carrasquillo of general surgery in [place], patient indicating had 2 polyps left in [...] (09/08/2023 6:18 PM EST): Obtain records from PLATFORM POWER TECHNICIAN. Keep PLATFORM POWER TECHNICIAN follow-up. 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 Vaginal Pap smear with LGSIL 08/25/2022 Resolved Problems Problem Noted Date Diagnosed Date Resolved Date Chronic back pain 10/22/2022 09/08/2023 Cervical myelopathy 11/25/2021 09/08/19 24 Overview (09/06/2023): Added automatically from request for surgery [id number] Encounters Date Type Department Care Team Description 04/29/2025 Telephone [facility] [address] [place] [phone] Xavier Esposito MD ORDER REQUEST 04/22/2025 8:15 AM EDT Office Visit [facility] [address] [place] [address] Xavier Esposito MD Atypical chest pain (Primary Dx); Chronic neck and back pain; Anxiety; Fibromyalgia; Tear of left rotator cuff, unspecified tear extent, unspecified whether traumatic 04/22/2025 Travel 04/16/2025 Refill [facility] [address] [place] [address] Xavier Esposito MD Gastroesophageal reflux disease without esophagitis 04/12/2025 Refill [facility] [address] [place] [address] Xavier Esposito MD 04/02/2025 Refill [facility] [address] [place] [address] Xavier Esposito MD 03/05/2025 Refill [facility] [address] [address] Xavier Esposito MD 02/28/2025 Telephone [facility] [address] [place] [address] Xavier Esposito MD Advice Only 02/26/2025 [facility] FAMILY MEDICINE [address] [place] [address] Xavier Esposito MD New Med Request 02/26/2025 [facility] FAMILY MEDICINE [address] [place] [address] Xavier Esposito MD REFERRAL REQUEST 02/26/[facility] [address] [place] [address] Xavier Esposito MD Chronic obstructive pulmonary disease, unspecified COPD type from Last 3 Months Immunizations Immunization Administration [...] Mass Index 24.96 04/22/2025 8:29 AM EDT Plan of Treatment Health Maintenance Due Date Last Done Comments Annual Gynecologic Pelvic and Breast Exam 1970 Pneumococcal Vaccine 50+ (1 of 2 - PCV) 11/15/1990 TDAP/TD VACCINES (1 - Tdap) 11/15/1990 ZOSTER VACCINE (1 of 2) 11/15/2021 ANNUAL PHYSICAL 09/01/2023 INFLUENZA VACCINE 02/22/2025 MAMMOGRAM 05/25/2025 05/25/2023, 02/25/2023 HEPATITIS C SCREENING [...] SYSTEM [facility] MEDICAID Care Teams Magistrate Judge Relationship Specialty Start Date End Date Xavier Esposito MD [address] [place] [address] PCP - General Family Medicine 09/24/24
--- OUTSIDE RECORDS SUMMARY | 2025-05-15 13:54 | XMS_ITS | Clinical Summary ---
Author Organization [facility] Address [facility] [place] [id number] Care Team Providers Care Assessment Expert Name Role Phone Renard Garcia MD Unavailable [phone] Yohana Aragon DO Unavailable [phone] Boogie Velardela Cheri NEUROCRITICAL CARE PHYSICIAN Unavailable [phone] Xavier Esposito MD Primary Care Provider [phone] Allergies Active Allergy Reactions Criticality Noted Date [...] needed for irritation. 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 Vaginal Pap smear with LGSIL 08/25/2022 Cervical myelopathy with cervical radiculopathy 11/28/2021 Cervical myelopathy 11/25/2021 Overview (11/25/2021): Added automatically from request for surgery [id number] Resolved Problems Problem Noted Date Diagnosed Date Resolved Date Debility 09/07/2024 04/14/2025 Encounters Date Type Department Care Team Description 05/13/2025 Telephone [facility] [address] [place] [phone] Renard Garcia MD 05/06/2025 Telephone [facility] [address] [place] [phone] Pcp, No HCN Clinical Concern/Question 05/03/2025 3:50 PM EDT - 05/03/2025 9:25 PM EDT Emergency [facility] [address] [place] [address] Kaushik Gutierrez MD Other chest pain (Primary Dx); Generalized abdominal pain; Other chronic back pain Discharge Disposition: Home or Self Care 05/03/2025 Travel 04/24/2025 Telephone [facility] [address] [place] [address] Renard Garcia MD HCN - Patient Message (Return call) 04/22/2025 Telephone [facility] [address], [address] [place] [phone] Renard Garcia MD 04/05/2025 Telephone [facility] [address], [address] [place] [address] Renard Garcia MD from Last 3 Months Immunizations Immunization Administration [...] 01/29/2025 12:23 AM EDT Plan of Treatment Upcoming Encounters Date Type Department Care Team (Late st Contact Info) Description 05/29/2025 9:30 AM EST Office Visit [facility] [address], [address] [place] [address] Renard Garcia MD [address] [place] [address] 08/09/2025 12:20 PM EST Office Visit [facility] [address] [place] [address] Leanne Burks MD [address] [place] [address] Health Maintenance Due Date Last Done Comments [...] Hep B Twinrix 3-dose series) 08/08/2018 07/11/2018 [id number] Vaccine (2 - Pfizer risk series) 04/27/2021 [...] this topic Medical Devices Implanted Type Area Restaurant Greeter Device Identifier Shelf Expiration Date Model / Serial / Lot One Level Plate, 12mm - [id number] Implanted:Qty : 1 on 11/28/2021 by Renard Garcia MD at [facility] Plate Spine Cervical [id number] 11/28/2022 [id number] / / Self Drilling Screw 14mm - [id number] Implanted:Qty : 2 on 11/28/2021 by Renard Garcia MD at [facility] Screw Spine Cervical [id number] 11/28/2022 [id number] / / Large Diameter 14mm - [id number] Implanted:Qty : 2 on 11/28/2021 by Renard Garcia MD at [facility] Screw Spine Cervical [id number] 11/28/2022 [id number] / / Nut Retainer - [id number] Implanted:Qty : 2 on 11/28/2021 by Renard Garcia MD at [facility] Spine Cervical [id number] 11/28/2022 [id number] / / Knee Vanguard1 Cervical Preservon 7mm - [id number] - [id number] Implanted:Qty : 1 on 11/28/2021 by Renard Garcia MD at [facility] Spine Cervical [employer]-[id number] 07/05/2026 [id number] / [id number] / [id number] Graft Vivigen 1cc - [id number] - [id number] Implanted:Qty : 1 on 11/28/2021 by Renard Garcia MD at [facility] Spine Cervical [employer]-[id number] 11/18/2022 [id number] / [id number] / [id number] Procedures Procedure Name Priority Date/Time Associated Diagnosis Comments CT ABDOMEN PELVIS WO IV CONTRAST STAT 05/03/2025 7:53 PM EDT TROPONIN T, HIGH SENSITIVITY, 2 HOUR, PLASMA Timed 05/03/2025 5:26 PM EDT XR CHEST 1 VIEW STAT 05/03/2025 4:27 PM EDT D DIMER, QUANTITATIVE STAT 05/03/2025 3:15 PM EDT N-TERMINAL PROBNP, PLASMA STAT 05/03/2025 3:15 PM EDT BLOOD GAS PANEL, VENOUS STAT 05/03/20 3:15 PM EDT TROPONIN T, HIGH SENSITIVITY, 0 HOUR, PLASMA, REFLEX TO 2 HOUR STAT 05/03/2025 3:15 PM EDT COMPREHENSIVE METABOLIC PANEL, PLASMA STAT 05/03/2025 3:15 PM EDT CBC WITH AUTO DIFFERENTIAL STAT 05/03/2025 3:15 PM EDT ECG ADULT STAT 05/03/2025 2:57 PM EDT ED HIV 1/2 ANTIBODY/ANTIGEN SCREEN WITH REFLEX TO HIV I/II DIFFERENTIATION STAT 01/29/2025 12:49 AM EDT ACUTE HEPATITIS PANEL Routine 09/07/2024 8:04 AM EST from Last 3 Months or Most Recently Relevant to Health Maintenance Results * CT Abdomen Pelvis wo IV [...] anterolisthesis of L3 on L4. Procedure Note True, Yohana Rizzo MD - 05/03/2025 CLINICAL INDICATION: Abdominal pain, [...] fracture. Mild degenerative changes of the spine. [id number] vertebra. Unchanged minimal anterolisthesis of L3 on [...] 5:26 PM EDT 05/03/2025 5:28 PM EDT Ronny Zeng MD LAB BLOOD ORDERABLES Fi nal Result [facility] [address] [place] [address] * XR Chest 1 View (05/03/2025 4:27 [...] Nasra Bliss MD on 05/03/2025 4:48 PM Ronny Zeng MD IMG XR PROCEDURES Final Result * Troponin now and 120 min (05/03/2025 3:15 PM EDT) Troponin T, High Sensitivity, 0 Hour <6 <14 ng/L 05/03/2025 3:45 PM EDT [facility] Blood Venous blood specimen / Unknown Venipuncture / Unknown 05/03/2025 3:15 PM EDT 05/03/2025 3:20 PM EDT Ronny Zeng MD LAB BLOOD ORDERABLES Fi nal Result [facility] [address] [place] [address] * D-Dimer, Quantitative (05/03/2025 3:15 PM EDT) [...] should be considered in the clinical context. Ronny Zeng MD LAB BLOOD ORDERABLES Fi nal Result Performing Organization Address City/[facility]/ZIP Co de Phone Number [facility] [address] [place] [address] * BNP (05/03/2025 3:15 PM EDT) [facility] N-Terminal, PROBNP, Plasma 77 0 - 899 pg/mL 05/03/2025 3:45 PM EDT [facility] Blood Venous blood specimen / Unknown Venipuncture / Unknown 05/03/2025 3:15 PM EDT 05/03/2025 3:20 PM EDT Ronny Zeng MD LAB BLOOD ORDERABLES Fi nal Result Performing Organization Address [facility] Co de Phone Number [facility] [address] [place] [address] * (ABNORMAL) CBC w/diff (05/03/2025 3:15 PM EDT) [facility] WBC Count 7.20 3.70 - 10.30 10*3/uL [...] on absolute values, rather than percentages. us Ronny Zeng MD LAB BLOOD ORDERABLES Fi nal Result [facility] [address] [place] [address] * (ABNORMAL) Blood gas panel, venous (05/03/2025 [...] PM EDT 05/03/2025 3:20 PM EDT us Ronny Zeng MD LAB BLOOD ORDERABLES Fi nal Result [facility] [address] [place] [address] * (ABNORMAL) CMP (05/03/2025 3:15 PM EDT) [...] PM EDT 05/03/2025 3:20 PM EDT us Ronny Zeng MD LAB BLOOD ORDERABLES Fi nal Result [facility] [address] [place] [address] * EKG now - STAT (adult) (05/03/2025 2:57 PM EDT) EKG DIAGNOSIS CLASS Normal MUSE ECG Ventricular Rate 91 BPM MUSE ECG Atrial Rate 96 BPM MUSE ECG NM Interval 152 ms MUSE ECG QRSD Interval 76 ms MUSE ECG QT Interval 372 ms MUSE ECG QTC Interval 457 ms MUSE ECG P [place] 50 degrees MUSE ECG R [place] 32 degrees MUSE ECG T Wave [place] 38 degrees MUSE ECG Diagnosis Normal sinus rhythm MUSE ECG Diagnosis MUSE ECG Diagnosis MUSE ECG Diagnosis Confirmed by Mark Luther ([id number]) on 05/03/2025 10:42:37 PM MUSE ECG 05/03/2025 2:57 PM EDT 05/03/2025 10:42 PM EDT Kaushik Gutierrez MD ECG ORDERABLES Final Result MUSE ECG * ED HIV 1/2 Antibody/Antigen Screen w/Reflex [...] esult [facility] [address] [place] [address] * Hepatitis panel, acute (09/07/2024 8:04 AM EST) Pathologist [facility] Hepatitis B Surf Antigen Negative Negative 09/07/2024 10:36 AM EST [facility] Hepatitis C Antibody Negative Negative 09/07/2024 10:36 AM EST [facility] Hepatitis A Antibody IgM Negative Negative 09/07/2024 10:36 AM EST [facility] Hepatitis B Core Antibody IgM Negative Negative 09/07/2024 10:36 AM EST [facility] Blood Venous blood specimen / Unknown Venipuncture / Unknown 09/07/2024 8:04 AM EST 09/07/2024 8:14 AM EST Manjit Whitt NEUROCRITICAL CARE PHYSICIAN, DNP LAB BLOOD ORDERABLES Fi nal Result [facility] [address] [place] [address] from Last 3 Months or Most Recently Relevant to Health Maintenance Insurance [facility] MEDICAID Advance Directives * Full Code (Latest Code Status on File) Date Activated Date Inactivated Comments 09/07/2024 6:46 AM 09/12/2024 6:58 PM Question Answer Comments Patient has decision-making capacity? Yes Care Teams Assessment Expert Relationship Specialty Start Date End Date Xavier Esposito MD [address] [place] [address] PCP - General 05/14/25 Renard Garcia MD [address] [facility] [address] [place] [phone] Surgeon Neurosurgery 11/25/21 Yohana Aragon DO [address] [place] [address] Obstetrics and Gynecology 10/22/22 Yvette Velarde APRN [address] [phone] Nurse Practitioner Neurosurgery 11/10/23
--- OUTSIDE RECORDS SUMMARY | 2025-05-15 13:54 | XMS_ITS | Encounter Summary ---
Author Organization Healthcare Address [address] [place] [address] Care Team Providers Care Supervisor Buffing And Pasting Name Role Phone Renard Garcia MD Unavailable [phone] Yohana Aragon DO Unavailable [phone] Yvette Velarde RUBBER CURER Unavailable Pcp, No Primary Care Provider Unavailabl e Encounter Details Date Type Department Care Team (Late st Contact Info) Description 04/05/2025 Telephone [facility] [address], [address] [place] [address] Renard Garcia MD [address] [place] [address] Social History Tobacco Use Types Packs/Day Years [...] encounter Miscellaneous Notes * Telephone Encounter - Yvette Velarde, RUBBER CURER - 04/08/2025 8:45 AM EDT Spoke to patient, states she he has an appointment for follow up. Patient states that she did not go to her ENT appointments. We will have her come April 24 at 2:45 .. Patient aware of appointment * Telephone Encounter - Maricruz Delgado - 04/05/2025 4:45 PM EDT Patient Phone Message Reason for Call: Pt was last seen for surgery 3 years ago. She states that she is having pain in the neck and head. She is having had time swallowing. She would like to know what to do Best contact number and optimal time of day to reach caller: [phone]/pt Note: Please do not reply to this message. Follow-up communication and further actions as a result of this message need to be communicated with the patient directly, if the patient is not active onMyChart. If the patient is active on MyChart, they will receive notification of the communication/outcome via MyChart. documented in this encounter Plan of Treatment Upcoming Encounters Date Type Department Care Team (Late st Contact Info) Description 05/29/2025 9:30 AM EST Office Visit [place] [facility] [address], [address] [place] [address] Renard Garcia MD [address] [place] [address] 08/09/2025 12:20 PM EST Office [facility] [address] [place] [address] Leanne Burks MD [address] [place] [address] documented as of this encounter Visit Diagnoses Not on filedocumented in this encounter Additional Health Concerns Assessment Noted Time A fall risk assessment has been complete d for the patient 11/10/2023 10:06 AM EDT A Body Mass Index follow-up plan has been documented for the patient 09/12/2024 3:08 PM EST documented as of this encounter Care Teams Supervisor Buffing And Pasting Relationship Specialty Start Date End Date Pcp, No [address] [place] [address] PCP - General Family Medicine 01/29/25 05/13/25 Renard Garcia MD [address] [address] Surgeon Neurosurgery 11/25/21 Yohana Aragon DO [address] [place] [address] Obstetrics and Gynecology 10/22/22 Yvette Velarde APRN [address] [address] Nurse Practitioner Neurosurgery 11/10/23 documented as of this encounter
--- OUTSIDE RECORDS SUMMARY | 2025-05-15 13:54 | XMS_ITS | Encounter Summary ---
Author Organization Healthcare Address [address] [place] [address] Care Team Providers Care Food Aide Name Role Phone Renard Garcia MD Unavailable [phone] Yohana Aragon DO Unavailable [phone] Syd Yvette Cheri WATER SKI ASSEMBLER Unavailable Pcp, No Primary Care Provider Unavailabl Xavier Wilson MD Primary Care Provider Encounter Details Date Type Department Care Team (Late st Contact Info) Description 05/13/2025 Telephone [place] [facility] [address], 1[address] [place] [address] Renard Garcia MD [address] [place] [address] Social History Tobacco Use Types [...] encounter Miscellaneous Notes * Telephone Encounter - Art Beatty - 05/14/2025 11:41 AM EDT 05/14/2025 - 11:41AM Spoke to patient directly Patient has been made aware that canceling appointment the same day as her appointment is still considered no-show status. Patient stated she now has transportation lined out, understands importance of keeping appointment,and how creates concern for surgical worthiness & eligible planning if she cannot keep appointments. - Patient has been made aware she has no-showed the past three appointments with Dr. Jose MD and this is her last chance to be seen by Dr. Garcia and if she cancels or no-shows this appointment she will need to seek treatment from another spine provider outside of . Final No-Show Letter is being sent to patient with dates of previous missed appointments, with one time exception for upcoming appointment on 05/29/2025 - 9:30AM * Telephone Encounter - Valencia Will - 05/13/2025 9:46 AM EDT Patient Phone Message Reason for Call: Patient calling to r/s appt today Best contact number and optimal time of day to reach caller: [phone] Note: Please do not reply to this message. Follow-up communication and further actions as a result of this message need to be communicated with the patient directly, if the patient is not active onMyChart. If the patient is active on MyChart, they will receive notification of the communication/outcome via OneTrueFanhart. documented in this encounter Plan of Treatment Upcoming Encounters Date Type Department Care Team (Late st Contact Info) Description 05/29/2025 9:30 AM EST Office Visit [place] [facility] [address], [address] [place] [address] Renard Garcia MD [address] [place] [address] 08/09/2025 12:20 PM EST Office Visit [facility] [address] [place] [address] Leanne Burks MD [address] [place] [address] documented as of this encounter Visit Diagnoses Not on filedocumented in this encounter Additional Health Concerns Assessment Noted Time A fall risk assessment has been complete d for the patient 11/10/2023 10:06 AM EDT A Body Mass Index follow-up plan has been documented for the patient 09/12/2024 3:08 PM EST documented as of this encounter Care Teams Food Aide Relationship Specialty Start Date End Date Pcp, No [address] [place] [address] PCP - General Family Medicine 01/29/25 05/13/25 Xavier Esposito MD [address] [place] [address] PCP - General 05/14/25 Renard Garcia MD [address] [place] [address] Surgeon Neurosurgery 11/25/21 Yohana Aragon DO [address] [place] [address] Obstetrics and Gynecology 10/22/22 Yvette Velarde APRN [address] [place] [address] Nurse Practitioner Neurosurgery 11/10/23 documented as of this encounter
--- OUTSIDE RECORDS SUMMARY | 2025-05-15 13:54 | XMS_ITS | Encounter Summary ---
Author Organization Healthcare Address [address] [place] [id number] Care Team Providers Care Eap Consultant Name Role Phone Renard Garcia MD Unavailable [phone] Yohana Aragon DO Unavailable [phone] Yvette Velarde INTERNET MERCHANT Unavailable [phone] Pcp, No Primary Care Provider Unavailabl e Reason for Visit * Reason Onset Date Comments [facility] Clinical Concern/Question 05/06/2025 Encounter Details Date Type Department Care Team (Late st Contact Info) Description 05/06/2025 Telephone [facility] [place] [facility] [address] [place] [address] Pcp, No [address] [place] [address] [facility] Clinical Concern/Question Social History Tobacco Use Types Packs/Day Years [...] encounter Miscellaneous Notes * Telephone Encounter - Peggy Lackey RN - 05/07/2025 12:08 PM EDT Spoke w/ patient and she asked to call us back. JM * Telephone Encounter - Perry Gutierrez - 05/06/2025 3:45 PM EDT Clinical Concern/Question Reason for Call: Requesting nurse call back about upcoming appointment in July, please contact pt for more information. Best contact number: [phone] (mobile) Optimal time of day to reach caller: ANYTIME Additional comments/information from caller: None Note: Please do not reply to this message. Follow-up communication and further actions as a result of this message need to be communicated with the patient directly, if the patient is not active onMyChart. If the patient is active on MyChart, they will receive notification of the communication/outcome via Ondaxhart. documented in this encounter Plan of Treatment Upcoming Encounters Date Type Department Care Team (Late st Contact Info) Description 05/29/2025 9:30 AM EST Office Visit [place] [facility] [address], [address] [place] [address] Renard Garcia MD [address] [place] [address] 08/09/2025 12:20 PM EST Office Visit [facility] [place] [facility] [address] [place] [address] Leanne Burks MD [address] [place] [address] documented as of this encounter Visit Diagnoses Not on filedocumented in this encounter Additional Health Concerns Assessment Noted Time A fall risk assessment has been complete d for the patient 11/10/2023 10:06 AM EDT A Body Mass Index follow-up plan has been documented for the patient 09/12/2024 3:08 PM EST documented as of this encounter Care Teams Eap Consultant Relationship Specialty Start Date End Date Pcp, No [address] [place] [address] PCP - General Family Medicine 01/29/25 05/13/25 Renard Garcia MD [address] [place] [address] Surgeon Neurosurgery 11/25/21 Yohana Aragon DO [address] [place] [address] Obstetrics and Gynecology 10/22/22 Yvette Velarde APRN [address] [place] [address] Nurse Practitioner Neurosurgery 11/10/23 documented as of this encounter
--- OUTSIDE RECORDS SUMMARY | 2025-05-15 13:54 | XMS_ITS | Encounter Summary ---
Author Organization Healthcare Address [address] [id number] Care Team Providers Care Bilingual Recruiter Name Role Phone Renard Garcia MD Unavailable [phone] Yohana Aragon DO Unavailable [phone] Yvette Velarde CAN TENDER Unavailable [phone] Pcp, No Primary Care Provider Unavailabl e Encounter Details Date Type Department Care Team (Latest Contact Info) Description 05/03/2025 Travel Social History Tobacco Use Types Packs/Day [...] Risk Indicated 05/03/2025 5:38 PM EDT Peggy Alvraez RN * Question Answer Date of Assessment Author 1. Wish to be (Past 1 Month) No 025 5:38 PM GABIT Peggy Alvarez RN 2. Non-Specific Active Suici shea Thoughts (Past 1 Month) No 05/03/2025 5:38 PM EDT Paulette Alvarez RN 6. Suicidal Behavior (Lifetime) No 5:38 PM GABIT Peggy Alvarez RN documented as of this encounter Plan of Treatment Upcoming Encounters Date Type Department Care Team (Late st Contact Info) Description 05/29/2025 9:30 AM EST Office Visit [place] [facility] [address], [address] [place] [address] Renard Garcia MD [address] [place] [address] 08/09/2025 12:20 PM EST Office [facility] [address] [place] [address] Leanne Burks MD [address] [place] [address] documented as of this encounter Visit Diagnoses Not on filedocumented in this encounter Additional Health Concerns Assessment Noted Time A fall risk assessment has been complete d for the patient 11/10/2023 10:06 AM EDT A Body Mass Index follow-up plan has been documented for the patient 09/12/2024 3:08 PM EST documented as of this encounter Care Teams Bilingual Recruiter Relationship Specialty Start Date End Date Pcp, Lauren [address] [place] [address] PCP - General Family Medicine 01/29/25 05/13/25 Renard Garcia MD [address] [place] [address] Surgeon Neurosurgery 11/25/21 Yohana Aragon DO [address] [place] [address] Obstetrics and Gynecology 10/22/22 Yvette Velarde APRN [address] [place] [address] Nurse Practitioner Neurosurgery 11/10/23 documented as of this encounter
--- OUTSIDE RECORDS SUMMARY | 2025-05-15 13:54 | XMS_ITS | Encounter Summary ---
Author Organization [facility] Address [address] [place] [address] Care Team Providers Care Paper Sorter And Counter Name Role Phone Xavier Esposito MD Primary Care Provider + Reason for Visit * Reason Onset Date Comments Med Refill 04/12/2025 CLONAZEPAM Encounter Details Date Type Department Care Team (Late st Contact Info) Description 04/12/2025 Refill [facility] [address] [place] [address] Xavier Esposito MD [address] [place] [address] Social History Tobacco Use Types [...] encounter Miscellaneous Notes * Telephone Encounter - Xavier Esposito MD - 04/13/2025 10:30 AM EDT I will not prescribe this medication.. SANTOS would indicate she was under the care of Behavioral Health at [facility]. Medicine may have been weaned as it was last prescribed on 04/04 for 7 days. * Telephone Encounter - Keira Dhaliwal RegSched Rep - 04/12/2025 3:34 PM EDT Incoming Refill Request Medication requested (name and dose): CLONAZEPAM .5MG Pharmacy where request should be sent: [facility] Additional details provided by patient: NO LONGER SEES DR THAT PRESCRIBED THIS INITIALLY. PT WOULD LIKE TO BE NOTIFIED WHEN THIS HAS BEEN FILLED. TOLD IT CAN TAKE 48-72 BUSINESS HOURS BUT IS ON HIGH PRIORITY. Best call back number: [phone] Does the patient have less than a 3 day supply: [x] Yes [] No Kamron Thomason 04/12/25, 15:35 EDT documented in this encounter Plan of Treatment Not on file documented as of this encounter Visit Diagnoses Not on filedocumented in this encounter Care Teams Paper Sorter And Counter Relationship Specialty Start Date End Date Xavier Esposito MD [address] [place] [address] PCP - General Family Medicine 09/24/24 documented as of this encounter
--- OUTSIDE RECORDS SUMMARY | 2025-05-15 13:54 | XMS_ITS | Encounter Summary ---
Author Organization [facility] Address [address] [place] [address] Care Team Providers Care Slitter And Rewinder Name Role Phone Xavier Esposito MD Primary Care Provider + Encounter Details Date Type Department Care Team (Latest Contact Info) Description 04/22/2025 Travel Social History Tobacco Use Types Packs/Day [...] on filedocumented in this encounter Care Teams Slitter And Rewinder Relationship Specialty Start Date End Date Xavier Esposito MD [address] [place] [address] PCP - General Family Medicine 09/24/24 documented as of this encounter
--- OUTSIDE RECORDS SUMMARY | 2025-05-15 13:54 | XMS_ITS | Encounter Summary ---
Author Organization [facility] Address [address] [place] [address] Care Team Providers Care Infant And Toddler Teacher Name Role Phone Perry Hicks MD Primary Care Provider [phone] Renard Garcia MD Unavailable [phone] Yohana Aragon DO Unavailable [phone] Yvette Velarde DENTAL EQUIPMENT REPAIRER Unavailable [phone] Pcp, No Primary Care Provider Unavailabl Carolina Lawrence SAMPLER TESTER Unavailable Unavailable Pcp, No Primary Care Provider Unavailabl e Xavier Esposito MD Primary Care Provider [phone] Encounter Details Date Type Department Care Team (Late st Contact Info) Description 11/01/2022 Lab Requisition [facility] [address] [place] [address] Santiago England MD [address] [facility] [address] [place] [address] Atypical squamous cells of undetermined significance on [...] Recorded In the last 10 days, have oscar u been in contact with someone who was confirmed or suspected to have Coronavirus/COVID-19? No / Unsure 11/02/2022 2:07 PM EDT documented as of this encounter Plan of Treatment Upcoming Encounters Date Type Department Care Team (Late st Contact Info) Description 05/29/2025 9:30 AM EST Office Visit [place] [facility] [address], [address] [place] [address] Renard Garcia MD [address] [place] [address] 08/09/2025 12:20 PM EST Office Visit [facility] [address] [place] [address] Leanne Burks MD [address] [facility] [address] [place] [address] documented as of this encounter Procedures Procedure Name Priority Date/Time Associated Diagnosis Comments SURGICAL PATHOLOGY CONSULT Routine 11/01/2022 12:43 PM EDT Atypical squamous cells of undetermined significance on cytologic smear of cervix (ASC-US) documented in this encounter Results * Surgical Pathology Consult (11/01/2022 12:43 PM EDT) Case Report Sugical Pathology Consult Case: [id number] Authorizing Provider: Santiago England MD Collected: 11/01/2022 1243 [facility]ing Location: [facility] Lab Received: 11/01/2022 1243 Pathologist: Namrata Travis MD Specimen: Vaginal, [id number] 11/04/2022 9:18 AM EDT [facility] Final Diagnosis A. VAGINAL CUFF, 3:00 AND 9:00, BIOPSIES (OUTSIDE SLIDES [id number], 10/06/22): - FRAGMENTS OF PREDOMINANTLY CERVICAL STROMA WITH MINUTE FRAGMENTS OF CAUTERIZED SQUAMOUS EPITHELIUM - NO EVIDENCE OF HIGH GRADE DYSPLASIA OR CARCINOMA 11/04/2022 9:18 AM EDT [facility] at 0918 EDT Comment There is minimal intact epithelium available for review. Therefore these findings may not be bilingual sales representative of the mucosal process. Clinical correlation, with potential rebiopsy, is suggested. 11/04/2022 9:18 AM EDT [facility] Clinical Information R87.610 - Atypical squamous cells of undetermined significance on cytologic smear of cervix (ASC-US) [ICD-10-CM] 11/04/2022 9:18 AM EDT [facility] Gross Description A. [id number] Received along with a corresponding pathology report from [facility] are 2 slide(s) labeled outside case: [id number] collected on 10/06/2022. 11/04/2022 9:18 AM EDT [facility] Note: A resident was involved in the service. I attest I examined the relevant preparations for the specimens and confirmed the diagnosis or interpretation. 11/04/2022 9:18 AM EDT [facility] Tissue Vaginal structure / Unknown 11/01/2022 12:43 PM EDT 11/01/2022 12:43 PM EDT us Santiago England MD LAB PATHOLOGY ORDERABLES Final Result [facility] [address] [place] [address] documented in this encounter Visit Diagnoses Diagnosis [...] documented as of this encounter Care Teams Infant And Toddler Teacher Relationship Specialty Start Date End Date Perry Hicks MD [address] [place] [address] PCP - General 12/05/20 11/09/23 Pcp, No [address] [place] [address] PCP - General Family Medicine 11/10/23 01/28/25 Pcp, No [address] [place] [address] PCP - General Family Medicine 01/29/25 05/13/25 Xavier Esposito MD [address] [place] [address] PCP - General 05/14/25 Renard Garcia MD [address] [place] [address] Surgeon Neurosurgery 11/25/21 Yohana Aragon DO [address] [place] [address] Obstetrics and Gynecology 10/22/22 Yvette Velarde APRN [address] [place] [address] Nurse Practitioner Neurosurgery 11/10/23 Carolina Aquino LPN VALUE[employer] [place] [address] TCM Nurse 09/13/24 10/12/24 documented as of this encounter
--- OUTSIDE RECORDS SUMMARY | 2025-05-15 13:54 | XMS_ITS | Encounter Summary ---
Author Organization [facility] Address [address] [place] [address] Care Team Providers Care Bag Machine Tender Name Role Phone Xavier Esposito MD Primary Care Provider + Reason for Visit * Reason Onset Date Comments ORDER REQUEST 04/29/2025 Encounter Details Date Type Department Care Team (Late st Contact Info) Description 04/29/2025 Telephone [facility] [address] [place] [address] Xavier Esposito MD [address] [place] [address] ORDER REQUEST Social History Tobacco Use Types Packs/Day [...] encounter Miscellaneous Notes * Telephone Encounter - Irma Cuba MA - 04/29/2025 3:27 PM EDT Informed pt that Dr. Esposito is out of the office until the end of the week. She should call her Pulmoffice and see if they can write for another one. Pt agreed. * Telephone Encounter - Natalya Morgan RegSched Rep - 04/29/2025 2:56 PM EDT Caller: Tonya Kamara Relationship: Self Best call back number: [phone] What orders are you requesting (i.e. lab or imaging): NEBULIZER MACHINE In what timeframe would the patient need to come in: SOON POSSIBLE Where will you receive your lab/imaging services: [facility] Additional notes: THE PATIENT STATES THAT HER NEBULIZER WAS STOLEN OUT OF HER VEHICLE THE PATIENT STATES THAT SHE REALLY NEEDS A NEBULIZER SHE WOULD LIKE THE DOCTOR TO ORDER A REPLACEMENT FOR HER documented in this encounter Plan of Treatment Not on file documented as of this encounter Visit Diagnoses Not on filedocumented in this encounter Care Teams Bag Machine Tender Relationship Specialty Start Date End Date Xavier Esposito MD [address] [place] [address] PCP - General Family Medicine 09/24/24 documented as of this encounter
--- OUTSIDE RECORDS SUMMARY | 2025-05-15 13:54 | XMS_ITS | Encounter Summary ---
Author Organization [facility] Address [address] [place] [address] Care Team Providers Care Electronic Engineering Technician Name Role Phone Perry Hicks MD Primary Care Provider + [phone] Renard Garcia MD Unavailable [phone] Yohana Aragon DO Unavailable [phone] Yvette Velarde MEAT BONER Unavailable [phone] Pcp, No Primary Care Provider Unavailabl Carolina Lawrence HOUSEKEEPER/CUSTODIAN/LAUNDRY WORKER Unavailable Unavailable Pcp, No Primary Care Provider Unavailabl e Xavier Esposito MD Primary Care Provider [phone] Encounter Details Date Type Department Care Team (Late st Contact Info) Description 11/01/2022 Lab Requisition [facility] [address] [place] [id number] Santiago England MD [address] [facility] [address] [place] [address] Atypical squamous cells of undetermined [...] Visit [place] [facility] [address] [place] [address] Renard Garcia MD [address] [place] [address] 08/09/2025 12:20 PM EST Office Visit [facility] [address] [place] [address] Leanne Burks MD [address] [facility] [address] [place] [address] documented as of this encounter Procedures Procedure Name Priority Date/Time Associated Diagnosis Comments CYTOLOGY CONSULT 11/01/2022 11:2 1 AM EDT Atypical squamous cells of undetermined significance on cytologic smear of cervix (ASC-US) documented in this encounter Results * Cytology Consult (11/01/2022 11:21 AM EDT) Case Report Cytology Case: [id number] Authorizing Provider: Santiago England MD Collected: 11/01/2022 1121 Ordering Location: [facility] Lab Received: 11/01/2022 1122 Pathologist: Alayna Vaca MD Specimen: Vaginal, [id number] 11/02/2022 11:55 AM EDT [facility] Final Diagnosis A. VAGINAL PAP SMEAR (OUTSIDE CASE [id number], COLLECTED 08/25/2022) - LOW GRADE SQUAMOUS INTRAEPITHELIAL LESION (LSIL), SEE COMMENT. 11/02/2022 11:55 AM EDT [facility] at 1155 EDT Comment Refer to surgical case [id number] for subsequent biopsy results. 11/02/2022 11:55 AM EDT [facility] Clinical Information R87.610 - Atypical squamous cells of undetermined significance on cytologic smear of cervix (ASC-US) [ICD-10-CM] 11/02/2022 11:55 AM EDT [facility] Gross Description A. [id number] For clinical data and diagnosis (LSIL) for this specimen ([id number]) see final report issued by [facility] Pathology Department. 11/02/2022 11:55 AM EDT [facility] Vaginal structure / Unknown 11/01/2022 11:21 AM EDT 11/01/2022 11:22 AM EDT us Santiago England MD LAB PATHOLOGY ORDERABLES Final Result [facility] [address] [place] [address] documented in this encounter Visit Diagnoses Diagnosis [...] documented as of this encounter Care Teams Electronic Engineering Technician Relationship Specialty Start Date End Date Perry Hicks MD [address] [place] [address] PCP - General 12/05/20 11/09/23 Pcp, No [address] [place] [address] PCP - General Family Medicine 11/10/23 01/28/25 Pcp, No [address] [place] [address] PCP - General Family Medicine 01/29/25 05/13/25 Xavier Esposito MD [address] [place] [address] PCP - General 05/14/25 Renard Garcia MD [address] [place] [address] Surgeon Neurosurgery 11/25/21 Yohana Aragon DO [address] [place] [address] Obstetrics and Gynecology 10/22/22 Yvette Velarde APRN [address] [place] [address] Nurse Practitioner Neurosurgery 11/10/23 Carolina Aquino LPN [employer] [place] [address] [facility] Nurse 09/13/24 10/12/24 documented as of this encounter
--- OUTSIDE RECORDS SUMMARY | 2025-05-15 13:54 | XMS_ITS | Encounter Summary ---
Author Organization [facility] Address [address] [place] [address] Care Team Providers Care Supervisor Feed House Name Role Phone Xavier Esposito MD Primary Care Provider + Reason for Visit * Reason Comments Med Refill Encounter Details Date Type Department Care Team (Late st Contact Info) Description 04/16/2025 Refill [facility] [address] [place] [address] Xavier Esposito MD [address] [place] [address] Gastroesophageal reflux disease without esophagitis Social History Tobacco Use Types Packs/Day Years [...] as of this encounter Visit Diagnoses Diagnosis Gastroesophageal reflux disease without esophagitis Esophageal reflux documented in this encounter Care Teams Supervisor Feed House Relationship Specialty Start Date End Date Xavier Esposito MD [address] [place] [address] PCP - General Family Medicine 09/24/24 documented as of this encounter
--- OUTSIDE RECORDS SUMMARY | 2025-05-15 13:54 | XMS_ITS | Encounter Summary ---
Author Organization [facility] Address [address] [place] [address] Care Team Providers Care Contract Writer Name Role Phone Xavier Esposito MD Primary Care Provider + Reason for Visit * Reason Comments Med Refill Encounter Details Date Type Department Care Team (Late st Contact Info) Description 04/02/2025 Refill [facility] [address] [place] [address] Xavier Esposito MD [address] [place] [address] Social History Tobacco Use Types [...] on filedocumented in this encounter Care Teams Contract Writer Relationship Specialty Start Date End Date Xavier Esposito MD [address] [place] [address] PCP - General Family Medicine 09/24/24 documented as of this encounter
--- OUTSIDE RECORDS SUMMARY | 2025-05-15 13:55 | XMS_ITS | Encounter Summary ---
Author Organization Healthcare Address [address] [place] [address] Care Team Providers Care Cigar Binder Name Role Phone Renard Garcia MD Unavailable [phone] Yohana Aragon DO Unavailable [phone] Yvette Velarde EASEMENT MAN Unavailable Pcp, No Primary Care Provider Unavailabl e Encounter Details Date Type Department Care Team (Late st Contact Info) Description 04/22/2025 [facility]phone [facility] [address] [place] [address] Renard Garcia MD [address] [place] [address] Social History Tobacco Use Types [...] * Telephone Encounter - Art Beatty - 04/22/2025 2:20 PM EDT 04/22/2025 - 2:19PM Spoke to patient directly - Moved appointment time up to 09:15AM per patient request - Patient confirmed updated arrival time with Dr Garcia on 04/24/2025 * Telephone Encounter - Marquis Stubbs - 04/22/2025 1:59 PM EDT Patient Phone Message Reason for Call: Patient calling to see if anything earlier that day 04/24 but would like to keep appt even if nothing earlier Best contact number and optimal time of day to reach caller: [phone] Note: Please do not reply to this message. Follow-up communication and further actions as a result of this message need to be communicated with the patient directly, if the patient is not active onMyChart. If the patient is active on MyChart, they will receive notification of the communication/outcome via [employer]. documented in this encounter Plan of Treatment Upcoming Encounters Date Type Department Care Team (Late st Contact Info) Description 05/29/2025 9:30 AM EST Office [facility] [address] [place] [address] Renard Garcia MD [address] [place] [address] 08/09/2025 12:20 PM EST Office Visit [facility] [address] [place] [address] Leanne Burks MD [address] [place] [address] documented as of this encounter Visit Diagnoses Not on filedocumented in this encounter Additional Health Concerns Assessment Noted Time A fall risk assessment has been complete d for the patient 11/10/2023 10:06 AM EDT A Body Mass Index follow-up plan has been documented for the patient 09/12/2024 3:08 PM EST documented as of this encounter Care Teams Cigar Binder Relationship Specialty Start Date End Date Pcp, No [address] [place] [address] PCP - General Family Medicine 01/29/25 05/13/25 Renard Garcia MD [address] [place] [address] Surgeon Neurosurgery 11/25/21 Yohana Aragon DO [address] [place], [place] [id number] Obstetrics and Gynecology 10/22/22 Yvette Velarde APRN [address] [place] [address] Nurse Practitioner Neurosurgery 11/10/23 documented as of this encounter
--- OUTSIDE RECORDS SUMMARY | 2025-05-15 13:55 | XMS_ITS | Encounter Summary ---
Author Organization Healthcare Address [address] [place] [address] Care Team Providers Care Mcat Instructor Name Role Phone Renard Garcia MD Unavailable [phone] Yohana Aragon DO Unavailable [phone] Yvette Velarde ACADEMIC GUIDANCE SPECIALIST Unavailable [phone] Pcp, No Primary Care Provider Unavailabl e Reason for Visit * Reason Onset Date Comments HCN - Patient Message 04/24/2025 Return cindy l Encounter Details Date Type Department Care Team (Late st Contact Info) Description 04/24/2025 Telephone [place] [facility] [address] [place] [address] Renard Garcia MD [address] [place] [address] [facility] - Patient Message (Return call) Social History Tobacco Use Types Packs/Day Years [...] Alvarez RN documented as of this encounter Miscellaneous Notes * Telephone Encounter - Art Beatty - 05/06/2025 1:34 PM EDT 05/06/2025 - 1:30PM // Patient called back to reschedule appointment - Scheduled to see Dr. Jose MD 05/13/2025 - 1:45PM at [facility] Location (([address] // 1st Floor [facility] down the stoner from the main entrance to the clinic.)) Patient has an updated Xray order in [place] [place], and will need to see Radiology upon registering at [facility] General Surgery Location // Or prior to registering to see Dr. Garcia * Telephone Encounter - Art Beatty - 05/06/2025 1:09 PM EDT Images from the original note were not included. 05/06/2025 - 1:09PM Left Message / Voicemail for patient to call back to reschedule appointment. LMSG/Voicemail for patient to call back regarding rescheduling appointment. Patient advised via voicemail message to call: between 8:00am to 4:00pm (Mon.-Fri.) Please note: -Patient has recently been scheduled to see Dr. Garcia previously and no showed on the following dates: 04/24/2025 & 04/29/2025 -No-Show Letter has been mailed out to patient as of 04/29/2025. * Telephone Encounter - Maricruz Delgado - 05/03/2025 4:19 PM EDT Pt is calling to say that she is in the ER at . She was having pain in her neck and head. Her L arm is numb and tingling. She missed the follow up appt 04/29. Please advise [phone]/pt * Telephone Encounter - Art Beatty - 04/25/2025 8:53 AM EDT 04/25/2025 - Updated/ Patient called back & now scheduled to see Dr. Garcia on: - 04/29/2025 - 9:00AM with Dr. Jose MD at [facility] 04/25/2025 - 8:52AM / 1st Attempt made to contact patient to reschedule appointment from 04/24/2025 - No Answer - Left Message LMSG/Voicemail for patient to call back regarding scheduling, (or rescheduling) appointment. Patient advised via voicemail message to call: between 8:00am to 4:00pm (Mon.-Fri.) * Telephone Encounter - Valencia Will - 04/24/2025 1:21 PM EDT Patient Phone Message Reason for Call: Patient calling requesting call back to discuss pain in same area as prior procedure as well as head and neck Best contact number and optimal time of day to reach caller: [phone] Note: Please do not reply to this message. Follow-up communication and further actions as a result of this message need to be communicated with the patient directly, if the patient is not active onMyChart. If the patient is active on MyChart, they will receive notification of the communication/outcome via [employer]. * Telephone Encounter - Ryan Pichardo - 04/24/2025 10:17 AM EDT Patient Phone Message Reason for Call: Patient requesting a call back to reschedule her appt this morning. Best contact number and optimal time of day to reach caller: Please call [phone] Note: Please do not reply to this message. Follow-up communication and further actions as a result of this message need to be communicated with the patient directly, if the patient is not active onMyChart. If the patient is active on MyChart, they will receive notification of the communication/outcome via [employer]. documented in this encounter Plan of Treatment Upcoming Encounters Date Type Department Care Team (Late st Contact Info) Description 05/29/2025 9:30 AM EST Office Visit [place] [facility] [address] [place] [address] Renard Garcia MD [address] [place] [address] 08/09/2025 12:20 PM EST Office Visit [facility] [address] [place] [address] Leanne Burks MD [address] [place] [address] documented as of this encounter Visit Diagnoses Not on filedocumented in this encounter Additional Health Concerns Assessment Noted Time A fall risk assessment has been complete d for the patient 11/10/2023 10:06 AM EDT A Body Mass Index follow-up plan has been documented for the patient 09/12/2024 3:08 PM EST documented as of this encounter Care Teams Mcat Instructor Relationship Specialty Start Date End Date Pcp, Lauren [address] [place] [address] PCP - General Family Medicine 01/29/25 05/13/25 Renard Garcia MD [address] [place] [address] Surgeon Neurosurgery 11/25/21 Yohana Aragon DO [address] [place] [id number] Obstetrics and Gynecology 10/22/22 Yvette Velarde APRN [address] [place] [address] Nurse Practitioner Neurosurgery 11/10/23 documented as of this encounter
== END 2025-05-15 23:59 | disposition home or self-care (01) ==
LOC: RAD 13:09
PROVIDERS: PCP Family Medicine; Visit Provider Obstetrics & Gynecology
DX: Z12.31 Encounter for screening mammogram for malignant neoplasm of breast (principal); R92.323 Mammographic fibroglandular density, bilateral breasts
CPT/HCPCS: 77063; 77067

== ENCOUNTER 2025-07-09 17:17 | Emergency (ER) | payer MEDICAID, SELFPAY ==
--- OUTSIDE RECORDS SUMMARY | 2025-06-09 22:07 | XMS_ITS | Continuity of Care Document ---
Author Organization [facility] Phone Care Team Providers Care [employer] Name Role Phone DOROTHY SANTANA Unavailable DOROTHY SANTANA Primary Attending DOROTHY SANTANA Admitting DECLINED, PCP Primary Care Unavailable ALLERGIES AND ADVERSE REACTIONS ALLERGIES AND ADVERSE REACTIONS Code System Allergy Substance Adverse Reaction Date Reaction (Severity) [place] [address] RXNorm Azithromycin Adverse reaction to substance Not Specified active [id number] on June 08, 2025 6:30:16 PM UTC 2670 RXNorm Codeine Adverse reaction to substance Not Specified active [id number] on June 08, 2025 6:30:16 PM UTC Tramadol HCl (Free Text Allergy) Adverse reaction to substance Not Specified active [id number] on June 08, 2025 6:30:17 PM UTC 5640 RXNorm Ibuprofen Adverse reaction to substance Not Specified active [id number] on June 08, 2025 6:30:17 PM UTC 6332 RXNorm Lidocaine Adverse reaction to substance Not Specified active [id number] on June 08, 2025 6:30:17 PM UTC RESULTS Patient: NAGA LUGO Date of : [birth year] 5 LABORATORY RESULTS ORDER 100: CBC AUTO W DIFF ( LOINC: 02932-9) ORDER DATE: June 08, 2025 6:35:00 PM UTC Specimen Source: Whole Blood Specimen Type: Whole blood s ample PERFORMING LAB: [facility] [address] [facility] [place] [id number] Result Comment: Final Result Date: June 08, 2025 7:12:00 PM UTC (TECH: KS) LOINC TEST FLAG RESULT REFERENCE RANGE UPDA NORBERTO BY 6690-2 Leukocytes [#/volume] in Blood by Automated count N 5.9 10^3/uL 4.5 10^3/uL - 11.5 10^3/uL June 08, 2025 7:12:00 PM UTC (TECH: 41st Parameter) 789-8 Erythrocytes [#/volume] in Blood by Automated count L 3.80 10^6/uL 4.25 10^6/uL - 5.57 10^6/uL June 08, 2025 7:12:00 PM UTC (TECH: 41st Parameter) 718-7 Hemoglobin [Mass/volume] in Blood L 11.7 g/dL 12.0 g/dL - 15.7 g/dL June 08, 2025 7:12:00 PM UTC (TECH: 41st Parameter) 93637-6 Hematocrit [Volume Fraction] of Blood L 35.7 % 36.0 % - 47.0 % June 08, 2025 7:12:00 PM UTC (TECH: 41st Parameter) 787-2 Erythrocyte mean corpuscular volume [Entitic volume] by Automated count N 93.9 fl 80 fl - 95 fl June 08, 2025 7:12:00 PM UTC (TECH: 41st Parameter) 36180-7 Erythrocyte mean corpuscular hemoglobin [Entitic mass] in Blood from Fetus by Automated count N 30.8 pg 27.0 pg - 34.0 pg June 08, 2025 7:12:00 PM UTC (TECH: 41st Parameter) 45005-3 Erythrocyte mean corpuscular hemoglobin concentration [Mass/volume] in Blood from Fetus by Automated count N 32.8 g/dL 32.0 g/dL - 36.0 g/dL June 08, 2025 7:12:00 PM UTC (TECH: 41st Parameter) 22146-7 Platelets [#/volume] in Blood N 351 10^3/uL 150 10^3/uL - 450 10^3/uL June 08, 2025 7:12:00 PM UTC (TECH: 41st Parameter) 88185-4 Erythrocyte distribution width [Ratio] N 14.9 % 12.3 % - 15.1 % June 08, 2025 7:12:00 PM UTC (TECH: 41st Parameter) 87171-5 Platelet mean volume [Entitic volume] in Blood by Automated count N 8.9 fl 7.4 fl - 10.4 fl June 08, 2025 7:12:00 PM UTC (TECH: KSM) 07994-3 Granulocytes/100 leukocytes in Blood by Automated count N 59.6 % 40 % - 75 % June 08, 2025 7:12:00 PM UTC (TECH: KSM) 736-9 Lymphocytes/100 leukocytes in Blood by Automated count N 33.4 % 15 % - 57 % June 08, 2025 7:12:00 PM UTC (TECH: KSM) 5905-5 Monocytes/100 leukocytes in Blood by Automated count N 6.1 % 4.0 % - 12.0 % June 08, 2025 7:12:00 PM UTC (TECH: KSM) 713-8 Eosinophils/100 leukocytes in Blood by Automated count N 0.2 % 0.0 % - 4.0 % June 08, 2025 7:12:00 PM UTC (TECH: KSM) 706-2 Basophils/100 leukocytes in Blood by Automated count N 0.5 % 0.0 % - 1.0 % June 08, 2025 7:12:00 PM UTC (TECH: KSM) 86469-0 Immature granulocytes [#/volume] in Blood N 0.2 % 0.0 % - 0.8 % June 08, 2025 7:12:00 PM UTC (TECH: KSM) 69530-2 Granulocytes [#/volume] in Blood by Automated count N 3.51 10^3/uL June 08, 2025 7:12:00 PM UTC (TECH: KSM) 731-0 Lymphocytes [#/volume] in Blood by Automated count N 1.97 10^3/uL June 08, 2025 7:12:00 PM UTC (TECH: KSM) 742-7 Monocytes [#/volume] in Blood by Automated count N 0.36 10^3/uL June 08, 2025 7:12:00 PM UTC (TECH: KSM) 711-2 Eosinophils [#/volume] in Blood by Automated count N 0.01 10^3/uL June 08, 2025 7:12:00 PM UTC (TECH: KSM) 704-7 Basophils [#/volume] in Blood by Automated count N 0.03 10^3/uL June 08, 2025 7:12:00 PM UTC (TECH: KSM) 58420-0 Immature granulocytes [#/volume] in Blood N 0.01 10^3/uL June 08, 2025 7:12:00 PM [facility] (TECH: 41st Parameter) 31889-8 Manual differential performed [Presence] in Blood N NO June 08, 2025 7:12:00 PM UT (TECH: 41st Parameter) ORDER 200: COMP METABOLIC PA SAMANTHA (LOINC: 36141-2) ORDER DATE: June 08, 2025 6:35:00 PM UTC Specimen Source: Serum/Plasm a Specimen Type: Acellular blo od (serum or plasma) specimen PERFORMING LAB: [address] [id number] Result Comment: Final Result Date: June 08, 2025 7:20:00 PM UT (TECH: 41st Parameter) LOINC TEST FLAG RESULT REFERENCE RANGE UPDA NORBERTO BY 2951-2 Sodium [Moles/volume ] in Serum or Plasma L 131 mmol/L 136 mmol/L - 145 mmol/L June 08, 2025 7:20:00 PM UT (TECH: 41st Parameter) 2823-3 Potassium [Moles/volume] in Serum or Plasma L 3.1 mmol/L 3.5 mmol/L - 5.1 mmol/L June 08, 2025 7:20:00 PM UT (TECH: 41st Parameter) 2075-0 Chloride [Moles/volume] in Serum or Plasma L 95 mmol/L 98 mmol/L - 107 mmol/L June 08, 2025 7:20:00 PM UT (TECH: 41st Parameter) 8-9 Carbon dioxide, tota l [Moles/volume] in Serum or Plasma N 27 mmol/L 21 mmol/L - 32 mmol/L June 08, 2025 7:20:00 PM UT (TECH: 41st Parameter) 53376-9 Anion gap 3 in Serum or Plasma N 9.0 June 08, 2025 7:20:00 PM UT (TECH: 41st Parameter) 2345-7 Glucose [Mass/volume ] in Serum or Plasma N 90 mg/dL 70 mg/dL - 110 mg/dL June 08, 2025 7:20:00 PM UTC (TECH: 41st Parameter) 3094-0 Urea nitrogen [Mass/volume] in Serum or Plasma N 7 mg/dL 7 mg/dL - 18 mg/dL June 08, 2025 7:20:00 PM UT (TECH: 41st Parameter) 2160-0 Creatinine [Mass/volume] in Serum or Plasma N 0.8 mg/dL 0.6 mg/dL - 1.0 mg/dL June 08, 2025 7:20:00 PM UT (TECH: 41st Parameter) 3097-3 Urea nitrogen/Creatinine [Mass Ratio] in Serum or Plasma L 8.8 9 - June 08, 2025 7:20:00 PM [facility] (TECH: 41st Parameter) 83704-9 Glomerular filtratio n rate/1.73 sq M.predicted by Creatinine-based formula (MDRD) N 88 mL/min >60 June 08, 2025 7:20:00 PM [facility] (TECH: 41st Parameter) 17277-2 Osmolality of Serum or Plasma by calculated by sum of electrolytes L 271 mosm/kg 275 mosm/kg - 301 mosm/kg June 08, 2025 7:20:00 PM [facility] (TECH: 41st Parameter) 2885-2 Protein [Mass/volume ] in Serum or Plasma H 8.3 g/dL 6.4 g/dL - 8.2 g/dL June 08, 2025 7:20:00 PM [facility] (TECH: 41st Parameter) 1751-7 Albumin [Mass/volume ] in Serum or Plasma N 4.4 g/dL 3.4 g/dL - 5.0 g/dL June 08, 2025 7:20:00 PM [facility] (TECH: 41st Parameter) 15788-4 Calcium [Mass/volume ] in Serum or Plasma N 9.7 mg/dL 8.5 mg/dL - 10.1 mg/dL June 08, 2025 7:20:00 PM [facility] (TECH: 41st Parameter) 81977-4 Calcium [Mass/volume ] corrected for total protein in Serum or Plasma N 9.4 mg/dL 8.5 mg/dL - 10.1 mg/dL June 08, 2025 7:20:00 PM [facility] (TECH: 41st Parameter) 1975-2 Bilirubin.total [Mass/volume] in Serum or Plasma N 0.6 mg/dL 0.4 mg/dL - 1.5 mg/dL June 08, 2025 7:20:00 PM [facility] (TECH: 41st Parameter) 1920-8 Aspartate aminotransferase [Enzymatic activity/volume] in Serum or Plasma N 32 U/L 15 U/L - 37 U/L June 08, 2025 7:20:00 PM UTC (TECH: 41st Parameter) 1742-6 Alanine aminotransferase [Enzymatic activity/volume] in Serum or Plasma N 28 U/L 12 U/L - 78 U/L June 08, 2025 7:20:00 PM UTC (TECH: [facility]) 6768-6 Alkaline phosphatase [Enzymatic activity/volume] in Serum or Plasma N 114 U/L 50 U/L - 120 U/L June 08, 2025 7:20:00 PM UTC (TECH: [facility]) ORDER 300: UA AND MICRO/CULT IF INDICATED (LOINC: 25845-2) ORDER DATE: June 08, 2025 6:35:00 PM UTC Specimen Source: URINE Specimen Type: Urine specime n PERFORMING LAB: [address] [id number] Result Comment: Final Result Date: June 08, 2025 6:39:00 PM UTC (TECH: 41st Parameter) LOINC TEST FLAG RESULT REFERENCE RANGE UPDA NORBERTO BY 5778-6 Color of Urine N yellow YELLOW Novem 2024 6:39:00 PM UTC (TECH: KSM) 5767-9 Appearance of Urine N clear CLEAR June 08, 2025 6:39:00 PM UTC (TECH: KSM) 5792-7 Glucose [Mass/volume] in Urine by Test strip N NORM NORMAL June 08, 2025 6:39:00 PM UTC (TECH: 41st Parameter) 58633-0 Bilirubin.total [Mass/volume] in Urine by Automated test strip N NEGATIVE NEGATIVE June 08, 2025 6:39:00 PM UTC (TECH: KSM) 5797-6 Ketones [Mass/volume] in Urine by Test strip N NEGATIVE NEGATIVE June 08, 2025 6:39:00 PM UTC (TECH: KSM) 2965-2 Specific gravity of Urine N 1.005 1.005 - 1.035 June 08, 2025 6:39:00 PM UTC (TECH: KSM) 52411-9 Erythrocytes [#/volume] in Urine by Automated test strip N NEGATIVE NEGATIVE June 08, 2025 6:39:00 PM UTC (TECH: KSM) 79083-4 pH of Urine by Automated test strip N 6.00 5.0 - 7.5 June 08, 2025 6:39:00 PM UTC (TECH: KSM) 41936-4 Protein [Presence] in Urine by Test strip N NEGATIVE NEGATIVE June 08, 2025 6:39:00 PM UTC (TECH: KSM) 90681-8 Urobilinogen [Mass/volume] in Urine by Automated test strip N NORM NORMAL June 08, 2025 6:39:00 PM UTC (TECH: KSM) 92074-4 Nitrate [Presence] in Urine N NEGATIVE NEGATIVE June 08, 2025 6:39:00 PM UTC (TECH: KSM) 84851-3 Leukocytes [#/volume] in Urine by Test strip N NEGATIVE NEGATIVE June 08, 2025 6:39:00 PM UTC (TECH: KSM) 61447-2 Other elements in Urine sediment N NOT REQUIRED June 08, 2025 6:39:00 PM UTC (TECH: KSM) 72971-0 Microscopic observation [Identifier] in Urine sediment by Light microscopy N NO June 08, 2025 6:39:00 PM UTC (TECH: KSM) ORDER 400: OCCULT BLOOD SING LE (LOINC: 2335-8) ORDER DATE: June 08, 2025 7:01:00 PM UTC Specimen Source: Stool Specimen Type: Stool specime n PERFORMING LAB: [address] [id number] Result Comment: Final Result Date: June 08, 2025 7:04:00 PM UTC (TECH: KSM) LOINC TEST FLAG RESULT REFERENCE RANGE UPDA NORBERTO BY 2335-8 Hemoglobin.gastroint estin al [Presence] in Stool N NEGATIVE NEGATIVE June 08, 2025 7:04:00 PM UTC (TECH: KSM) 57575-8 Reagent Lot number N [id number] N ovember 2024 7:04:00 PM UTC (TECH: KSM) 04351-9 Expiration date N 05/2027 Roshan hernandez 2024 7:04:00 PM UTC (TECH: KSM) 30170-4 Provider orders N P POSITIVE Roshan lopez 2024 7:04:00 PM UTC (TECH: KSM) 94469-7 Provider orders N N NEGATIVE Mekae mber 2024 7:04:00 PM UT (TECH: RG) 20596-4 Reagent Lot number N [id number] N ovember 2024 7:04:00 PM UT (TECH: RG) [id number] Expiration date of Supply N 01/2027June 08, 2025 7:04:00 PM [facility] (TECH: RG) LABORATORY NARRATIVE RESULTS Information is not available RADIOLOGY RESULTS Information is not available PATHOLOGY NARRATIVE RESULTS Information is not available MICROBIOLOGY RESULTS No Micro Labs/Results Exist for Patient BLOOD ADMIN RESULTS Information is not available MEDICATIONS HOME MEDICATIONS Status RXNORM NDC Medication Dose Route Frequency Dates Comments Reported By Updated By Active 128996 36582 65587 0 levothyroxin e 25 mcg tablet 1.0 TAB ORAL DAILY Last Dose: [id number] on June 08, 2025 6:44:05 PM [facility] Active 033561 55866 36162 1 Protonix 40 mg tablet, delayed release (enteric coated) 1.0 TAB ORAL DAILY Last Dose: [id number] on June 08, 2025 6:44:05 PM [facility] Active 606734 46893 91899 1 meloxicam 7.5 mg tablet 1.0 TAB ORAL DAILY Last Dose: [id number] on June 08, 2025 6:44:05 PM [facility] Active 257728 29597 32182 0 duloxetine 30 mg capsule,parveen yed release (e.c.) 1.0 CAP ORAL DAILY Last Dose: [id number] on June 08, 2025 6:44:05 PM [facility] Active FreeT extMe d albuterol sulfate 90 mcg/actuatio n Aerosol Powder, Breath Activ.with Sensor 0.0 INHALE D DAILY Last Dose: [id number] on June 08, 2025 6:44:05 PM [facility] Active 4876127 60127 47637 7 Flonase Allergy Relief 50 mcg/actuatio n spray, suspension 1.0 SPR BID Last Dose: [id number] on June 08, 2025 6:44:06 PM [facility] DISCHARGE MEDICATIONS Status RXNORM NDC Medication Dose Route Frequency Dates Dis pense Data Comments Physician Updated By No Discharge Medication Info rmation Available INPATIENT MEDICATIONS Status RXNORM NDC Medication Dose Route Frequency Rat e Quantity Dates Indication Dispense Data Comments Physician Updated By Raudel inued [phone] 5531 911 KLOR-CON M20 20 MEQ TBCR 20.0 MEQ ORAL ONE TIME ONLY Start: 2024 7:33:0 0 PM UTC End: 2024 7:33:0 0 PM UTC MAX Bedoya MD INTERF ED on June 08, 2025 7:32:00 PM UTC SOCIAL HISTORY SOCIAL HISTORY - Smoking Status SNOMED-CT Social History Element Description Effective Dates Offered Cessation Comment Updated By [id number] Current Tobacco smoking status Former Smoker [id number] on June 08, 2025 7:01:14 PM UTC SOCIAL HISTORY - Gender Sex: Female SOCIAL HISTORY - Status : status i nformation is not available Intention in Next Year: intention information is not available SOCIAL HISTORY - Assessments Code System Description Status Date Value of Assessment Updated By Comment Assessment Information is no t available SOCIAL HISTORY - [place] Affiliation [place] information is not av ailable SOCIAL HISTORY - Legal Sex Legal Sex information is not available SOCIAL HISTORY - Sexual Behavior Sexual Orientation Gender Identity SNOMED-CT Description SNO MED -CT Description Activity Level No of Partners Partner Type UpdatedBy Information is not available SOCIAL HISTORY - Occupation Occupation information is no t available VITAL SIGNS PATIENT VITAL SIGNS This section displays the mo st recent value for each vital sign as of June 10, 2025 3:07:06 AM [facility] Code Vital Sign Activity Date Result Updated By 8310-5 Body temperature June 08 6:00:00 PM UTC 98.0 [degF] 63924-2 Body weight Measured May 6:22:27 PM UTC 60.0 kg (132.0 lb) [id number] on June 08, 2025 6:22:27 PM UTC 8462-4 Diastolic blood pressure June 08, 2025 8:15:24 PM UTC 82.0 mm[Hg] 8867-4 Heart rate June 08 8:15:24 PM UTC 80 /min 37796-8 Oxygen saturation in Arterial blood by Pulse oximetry June 08, 2025 8:15:24 PM UTC 100.0 % 9279-1 Respiratory rate June 08 8:15:24 PM UTC 18 /min 8480-6 Systolic blood pressure June 08, 2025 8:15:24 PM UTC 167.0 mm[Hg] PEDIATRIC GROWTH CHART - VITAL SIGNS This section displays Head C ircumference Percentile, Weight for Length Percentile and BMI Percentile Loinc Code Pediatric Measure Age (Months) Result Updat ed By No Pediatric Growth Chart Pe rcentile Information Available. HEALTH CONCERNS Problems Concern Status Health Concern problem infor mation not available. Smoking Status Status Years Used Consumed packs p er day Health Concern smoking histo ry information not available. Family History Concern Status Health Concern family histor y information not available. ENCOUNTERS ENCOUNTER INFORMATION Reason for Visit BLOODY STOOL Admission June 08, 2025 6:00:[address] [id number] Discharge June 08, 2025 8:27:00 PM [facility] DISCHARGED TO HOME OR SELF CARE ENCOUNTER DIAGNOSES Notes information is not rafi ilable. Code System Diagnosis Onset Date Diagnosis information is not available. ABSTRACT DIAGNOSES Code System Diagnosis Updated By Abatement Date K92.1 ICD10 MELENA [id number] on 2024 3:06:34 AM [facility] K62.89 ICD10 OTHER SPECIFIED DISEASES OF ANUS AND RECTUM [id number] on June 10, 2025 3:06:34 AM [facility] K92.1 ICD10 MELENA [id number] on [facility] 2024 3:06:34 AM [facility] F32.A ICD10 DEPRESSION, UNSPECIFIED [id number] 630 on June 10, 2025 3:06:34 AM [facility] E03.9 ICD10 HYPOTHYROIDISM, UNSPECIFIED [id number] on June 10, 2025 3:06:34 AM [facility] Z79.890 ICD10 HORMONE REPLACEMENT THERAPY [id number] on June 10, 2025 3:06:34 AM [facility] Z87.891 ICD10 PERSONAL HISTORY OF NICOTINE DEPENDENCE [id number] on June 10, 2025 3:06:34 AM [facility] Z88.0 ICD10 ALLERGY STATUS TO PENICILLIN [id number] on June 10, 2025 3:06:34 AM [facility] Z88.1 ICD10 ALLERGY STATUS T O OTHER ANTIBIOTIC AGENTS [id number] on June 10, 2025 3:06:34 AM [facility] Z88.4 ICD10 ALLERGY STATUS T O ANESTHETIC AGENT [id number] on June 10, 2025 3:06:34 AM [facility] Z88.5 ICD10 ALLERGY STATUS T O NARCOTIC AGENT [id number] on June 10, 2025 3:06:34 AM [facility] Z88.6 ICD10 ALLERGY STATUS T O ANALGESIC AGENT [id number] on June 10, 2025 3:06:34 AM [facility] Z79.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 [id number] on June 10, 2025 3:06:34 AM [facility] CARE TEAM Care [employer] Role DOROTHY SANTANA Referring DOROTHY SANTANA Primary Attending DOROTHY SANTANA Admitting PCP DECLINED Primary Care CARE TEAM CARE assistant grocery Role on Team Location Telecom Status Start Date End Keyon e Updated By MAX Bedoya MD, MD Referring normal June 08, 2025 6:31:11 PM [facility] June 08, 2025 8:27:00 PM [facility] [id number] on June 08, 2025 6:31:11 PM [facility] MAX Bedoya MD, MD Attending normal June 08, 2025 6:31:11 PM [facility] June 08, 2025 8:27:00 PM [facility] [id number] on June 08, 2025 6:31:11 PM [facility] MAX Bedoya MD, MD Admitting normal June 08, 2025 6:31:10 PM [facility] June 08, 2025 8:27:00 PM [facility] [id number] on June 08, 2025 6:31:11 PM [facility] DECLINED PCP PCP normal [facility] 2024 6:00:25 PM [facility] June 08, 2025 8:27:00 PM [facility] [id number] on June 08, 2025 6:31:11 PM [facility]
--- OUTSIDE RECORDS SUMMARY | 2025-06-17 08:00 | XMS_ITS | Encounter Summary ---
Author Organization [facility] Address [address] [place] [address] Care Team Providers Care Site Supervising Technical Operator Name Role Phone Xavier Esposito MD Primary Care Provider + Reason for Referral * Consultation (Routine) - Authorized Specialty Diagnoses / Procedures Referred By Contac t Referred To Contact Gastroenterology Diagnoses Chronic diarrhea Nausea Procedures PA OFFICE/OUTPATIENT NEW MODERATE MDM 45 MINUTES Azalea Jones APRN [address] [place] [address] Phone: tel: fax: Matthew Mcgovern MD [address] [facility] [address] [place] [address] Phone: tel: fax: Referral ID Status Reason Start Date Expiration Date Visits Requested Visits Authorized [id number] Authorized Specialty Services Required 09/16/2026 1 1 * Pain Management (Routine) - Authorized Specialty Diagnoses / Procedures Referred By Contac t Referred To Contact Diagnoses Fibromyalgia Chronic neck and back pain Lumbar disc disease with radiculopathy Procedures PA OFFICE/OUTPATIENT NEW MODERATE MDM 45 MINUTES Azalea Jones APRN [address] [place] [address] Phone: tel: fax: Nikita Chance II, MD [address] [place] [address] Phone: tel: fax: Referral ID Status Reason Start Date Expiration Date Visits Requested Visits Authorized [id number] Authorized Specialty Services Required 09/16/2026 1 1 Reason for Visit * Reason Comments Med Refill Encounter Details Date Type Department Care Team (Late st Contact Info) Description 06/17/2025 8:00 AM EST Office Visit [facility] [address] [place] [address] Azalea Jones APRN [address] [place] [facility] [place] [address] Fibromyalgia (Primary Dx); Chronic obstructive pulmonary disease, unspecified COPD type; Chronic neck and back pain; Lumbar disc disease with radiculopathy; Seasonal allergies; Acquired hypothyroidism; Chronic diarrhea; Nausea; Raynaud's disease without gangrene Social History Tobacco Use Types Packs/Day Years [...] Sign Reading Time Taken Comments Blood Pressure 120/82 06/17/2025 8:31 AM EST Pulse 92 06/17/2025 8:31 AM EST Temperature 36.2 C (97.1 F) 06/17/2025 8:31 AM EST Respiratory Rate 16 06/17/2025 8:31 AM EST Oxygen Saturation 97% 06/17/2025 8:31 AM EST Inhaled Oxygen Concentration - - Weight 68 kg (150 lb) 06/17/2025 8:31 AM EST Height 162.6 cm (5' 4 ) 06/17/2025 8:31 AM EST Body Mass Index 25.75 06/17/2025 8:31 AM EST documented in this encounter Progress Notes * Azalea Jones APRN - 06/17/2025 8:00 AM EST Date: 06/17/2025 Patient Name: Tonya Kamara : 1970 Chief Complaint: Chief Complaint Patient presents with Med Refill History of Present Illness: Tonya Kamara is a 54 y.o. female who is here today to follow up for HPI History of Present Illness The patient presents for medication refills. She is seeking refills for levothyroxine, Imodium, Phenergan, Anoro, inhaler, nebulizer solution, Flonase, and pain medication. She has been by [facility] for pain management but is unable to continue due to distance. Pain management was prescribing gabapentin and norco. She has a history of spinal surgery at the [facility]. She experiences numbness and pain in her arm, and her fingers exhibit color changes from purple to black to white, accompanied by severe cold-induced pain. She suspects these symptoms are related to her neck condition. She also reportsback issues. She has a history of colon polyps, which were initially precancerous. She is due for a colonoscopy. She has been experiencing persistent diarrhea, necessitating daily Imodium use. She describes severe pain during bowel movements, likening it to labor pains. She has been diagnosed with carpal tunnel syndrome and has missed appointments with her specialist in [facility], rendering her unable to continue care with them. She reports wheezing and has a diagnosis of COPD. She has never had asthma and does not smoke but uses smokeless tobacco. Tobacco: Uses smokeless tobacco PAST SURGICAL HISTORY: - Spinal surgery at [facility] for removal of broken vertebra and placement of a plate in the neck - History of colon polyps Review of Systems: Review of Systems Constitutional: See hpi I have reviewed the patients family history, social history, past medical history, past surgical history and have updated it as appropriate. Medications: Current Outpatient Medications: albuterol (PROVENTIL) (2.5 MG/3ML) 0.083% nebulizer solution, Take 2.5 mg by nebulization Every 4 (Four) Hours As Needed for Wheezing., Disp: 300 mL, Rfl: 2 aspirin 81 MG EC tablet, Take 1 tablet by mouth Daily., Disp: , Rfl: benzonatate (Tessalon Perles) 100 MG capsule, Take 1 capsule by mouth 3 (Three) Times a Day As Needed for Cough., Disp: 30 capsule, Rfl: 0 fluticasone (FLONASE) 50 MCG/ACT nasal spray, Administer 2 sprays into the nostril(s) as directed by provider Daily., Disp: 15.8 g, Rfl: 2 hydrocortisone 1 % cream, , Disp: , Rfl: levothyroxine (SYNTHROID, LEVOTHROID) 25 MCG tablet, Take 1 tablet by mouth Daily., Disp: 90 tablet, Rfl: 1 loperamide (IMODIUM) 2 MG capsule, Take 1 capsule by mouth As Needed for Diarrhea., Disp: 30 capsule, Rfl: 1 omeprazole (priLOSEC) 40 MG capsule, TAKE 1 CAPSULE BY MOUTH ONCE A DAY, Disp: 30 capsule, Rfl: 1 promethazine (PHENERGAN) 25 MG tablet, Take 1 tablet by mouth Every 6 (Six) Hours As Needed for Nausea or Vomiting., Disp: 30 tablet, Rfl: 0 Umeclidinium-Vilanterol (Anoro Ellipta) 62.5-25 MCG/ACT aerosol powder inhaler, Inhale 1 puff Daily., Disp: 60 each, Rfl: 5 Allergies: Allergies Allergen Reactions Codeine Hives, Itching and Swelling Erythromycin Hives, Itching and Swelling Ibuprofen Hives, Itching and Swelling Iodinated Contrast Media Anaphylaxis Lidocaine Anaphylaxis Tramadol Hives, Itching and Swelling Azithromycin Unknown (See Comments) Latex Rash Penicillins Unknown (See Comments) PHQ-9 Total Score: Physical Exam: Vital Signs: Vitals: 06/17/25 0831 BP: 120/82 Pulse: 92 Resp: 16 Temp: 97.1 ??F (36.2 ??C) SpO2: 97% Weight: 68 kg (150 lb) Height: 162.6 cm (64 ) Body mass index is 25.75 kg/m??. Physical Exam Vitals and nursing note reviewed. Constitutional: Appearance: Normal appearance. HENT: Head: Normocephalic and atraumatic. Cardiovascular: Rate and Rhythm: Normal rate and regular rhythm. Pulmonary: Effort: Pulmonary effort is normal. Breath sounds: Normal breath sounds. Neurological: Mental Status: She is alert and oriented to person, place, and time. Assessment/Plan: Diagnoses and all orders for this visit: 1. Fibromyalgia (Primary) - Ambulatory Referral to Pain Management 2. Chronic obstructive pulmonary disease, unspecified COPD type Comments: Uncontrolled. Prescribed Anoro. Reassess at follow-up Orders: - Umeclidinium-Vilanterol (Anoro Ellipta) 62.5-25 MCG/ACT aerosol powder inhaler; Inhale 1 puff Daily. Dispense: 60 each; Refill: 5 - albuterol (PROVENTIL) (2.5 MG/3ML) 0.083% nebulizer solution; Take 2.5 mg by nebulization Every 4(Four) Hours As Needed for Wheezing. Dispense: 300 mL; Refill: 2 3. Chronic neck and back pain - Ambulatory Referral to Pain Management 4. Lumbar disc disease with radiculopathy - Ambulatory Referral to Pain Management 5. Seasonal allergies - fluticasone (FLONASE) 50 MCG/ACT nasal spray; Administer 2 sprays into the nostril(s) as directedby provider Daily. Dispense: 15.8 g; Refill: 2 6. Acquired hypothyroidism - levothyroxine (SYNTHROID, LEVOTHROID) 25 MCG tablet; Take 1 tablet by mouth Daily. Dispense: 90 tablet; Refill: 1 - CBC (No Diff) - Comprehensive metabolic panel - TSH Rfx On Abnormal To Free T4 7. Chronic diarrhea - loperamide (IMODIUM) 2 MG capsule; Take 1 capsule by mouth As Needed for Diarrhea. Dispense: 30 capsule; Refill: 1 - Ambulatory Referral to Gastroenterology 8. Nausea - promethazine (PHENERGAN) 25 MG tablet; Take 1 tablet by mouth Every 6 (Six) Hours As Needed for Nausea or Vomiting. Dispense: 30 tablet; Refill: 0 - Ambulatory Referral to Gastroenterology 9. Raynaud's disease without gangrene Assessment & Plan 1. Medication management: - Prescriptions for levothyroxine, Imodium, Phenergan, Anoro, inhaler, nebulizer solution, Flonase,and gabapentin have been renewed and sent to the pharmacy. - An oral drug screen will be conducted to determine if Dr. Esposito will continue prescribing her medications. 2. Raynaud's phenomenon: - She is advised to maintain warmth in her hands, particularly during winter, by wearing gloves andusing hot hands. - She reports significant pain and color changes in her fingers due to cold exposure. 3. Chronic pain: - A referral to pain management has been initiated. And medications will have to be filled through pain management, primary care will not prescribed pain medications. 4. Diarrhea: - She reports constant diarrhea and uses Imodium daily. - Further investigation is needed to identify and address the underlying cause. 5. Carpal tunnel syndrome: - She reports severe carpal tunnel syndrome and missed appointments with her previous doctor. - A referral to a local specialist in [place] will be considered. 6. Chronic obstructive pulmonary disease (COPD): - She reports wheezing and has a history of severe COPD. - She is advised to continue using her inhaler and nebulizer solution as prescribed. 7. Health maintenance: - A referral to Dr. Mcgovern in [place] for a colonoscopy has been made. Patient or patient client care representative verbalized consent for the use of Ambient Listening during the visit with Azalea Jones APRN for chart documentation. 06/17/2025 08:37 EST Follow Up: Return for Next scheduled follow up. Azalea Jones. [facility] documented in this encounter Plan of Treatment Scheduled Referrals Name Type Priority Associated Diagnoses Orde r Schedule Ambulatory Referral to Pain Management Outpatient Referral Routine Fibromyalgia Chronic neck and back pain Lumbar disc disease with radiculopathy Ordered: 06/17/2025 documented as of this encounter Procedures Procedure Name Priority Date/Time Associated Diagnosis Comments TSH RFX ON ABNORMAL TO FREE T4 Routine 06/17/2025 9:17 AM EST Acquired hypothyroidism CBC (NO DIFF) Routine 06/17/2025 9:17 AM EST Acquired hypothyroidism COMPREHENSIVE METABOLIC PANEL Routine 06/17/2025 9:17 AM EST Acquired hypothyroidism documented in this encounter Results * TSH Rfx On Abnormal To Free T4 (06/17/2025 9:17 AM EST) TSH 2.090 0.270 - 4.200 uIU/mL [facility] Blood 06/17/2025 9:17 AM EST 06/17/2025 Narrative [facility] ([facility]ULAT[facility]) - 06/18/2025 3:07 AM EST Performed at: [address] [place] [address] [place] [id number] Section Chief: Evelio Luo MD, Phone: [phone] Patient Fasting: Y Azalea Cheri Jones ELECTRIC SIGN WIRER LAB BLOOD ORDERABLES Final R esult [facility] (AMBULATORY) [address] [place] [address], [facility] [address] [place] [address], * (ABNORMAL) Comprehensive metabolic panel (06/17/2025 9:17 AM EST) [facility] Glucose 88 65 - 99 mg/dL [facility] BUN 7.0 6.0 - 20.0 mg/dL [facility] Creatinine 0.72 0.57 - 1.00 mg/dL [facility] EGFR Result 100.1 >60.0 mL/min/1.7 3 [facility] Comment: GFR Categories in Chronic Kidney Disease (CKD) GFR Category GFR (mL/min/1.73) Interpretation G1 90 or greater Normal or high (1) G2 60-89 Mild decrease (1) G3a 45-59 Mild to moderate decrease G3b 30-44 Moderate to severe decrease G4 15-29 Severe decrease G5 14 or less Kidney failure (1)In the absence of evidence of kidney disease, neither GFR category G1 or G2 fulfill the criteria for CKD. eGFR calculation 2020 CKD-EPI creatinine equation, which does not include race as a factor BUN/Creatinine Ratio 9.7 7.0 - 25.0 [facility] Sodium 141 136 - 145 mmol/L [facility] Potassium 4.5 3.5 - 5.2 mmol/L [facility] Chloride 100 98 - 107 mmol/L [facility] Total CO2 26.1 22.0 - 29.0 mmol/L [facility] Calcium 10.0 8.6 - 10.5 mg/dL [facility] Total Protein 7.6 6.0 - 8.5 g/dL [facility] Albumin 4.6 3.5 - 5.2 g/dL [facility] Globulin 3.0 gm/dL [facility] A/G Ratio 1.5 g/dL [facility] Total Bilirubin <0.2 0.0 - 1.2 mg/dL [facility] Alkaline Phosphatase 119(H) 39 - 117 U/L [facility] AST (SGOT) 36(H) 1 - 32 U/L [facility] ALT (SGPT) 18 1 - 33 U/L [facility] Blood 06/17/2025 9:17 AM EST 06/17/2025 Narrative [facility] ([facility]) - 06/18/2025 3:07 AM EST Performed at: [address] [place] [id number] Section Chief: Evelio Luo MD, Phone: [phone] Patient Fasting: Y Azalea Jones ELECTRIC SIGN WIRER LAB BLOOD ORDERABLES Final R esult [facility] (AMBULATORY) [address] [place] [address], [facility] [address] [place] [address], * (ABNORMAL) CBC (No Diff) (06/17/2025 9:17 AM EST) [facility] Signature WBC 5.89 3.40 - 10.80 10*3/mm3 [facility] RBC 3.87 3.77 - 5.28 10*6/mm3 [facility] Hemoglobin 11.8(L) 12.0 - 15.9 g/dL [facility] Hematocrit 36.8 34.0 - 46.6 % [facility] MCV 95.1 79.0 - 97.0 fL [facility] MCH 30.5 26.6 - 33.0 pg [facility] MCHC 32.1 31.5 - 35.7 g/dL [facility] RDW 14.4 12.3 - 15.4 % [facility] Platelets 430 140 - 450 10*3/mm3 [facility] Blood 06/17/2025 9:17 AM EST 06/17/2025 Narrative [facility] ([facility]) - 06/18/2025 3:07 AM EST Performed at: 01 - [facility] [place] [id number] Section Chief: Evelio Luo MD, Phone: [phone] Patient Fasting: Y us Azalea Alonzo Robert ELECTRIC SIGN WIRER LAB BLOOD ORDERABLES Final R esult [facility] (AMBULATORY) [address] [place] [id number], [facility] [address] [place] [address], documented in this encounter Visit Diagnoses Diagnosis Fibromyalgia- Primary Unspecified myalgia and myositis Chronic obstructive pulmonary disease, unspecified COPD type Chronic neck and back pain Lumbar disc disease with radiculopathy Seasonal allergies Allergic rhinitis, cause unspecified Acquired hypothyroidism Unspecified hypothyroidism Chronic diarrhea Diarrhea Nausea Nausea alone Raynaud's disease without gangrene documented in this encounter Care Teams Site Supervising Technical Operator Relationship Specialty Start Date End Date Xavier Esposito MD [address] [place] [address] PCP - General Family Medicine 09/24/24 documented as of this encounter
--- OUTSIDE RECORDS SUMMARY | 2025-07-04 12:45 | XMS_ITS | Encounter Summary ---
Author Organization [facility] Address [address] [place] [address] Care Team Providers Care Technology And Engineering Teacher Name Role Phone Xavier Esposito MD Primary Care Provider + Reason for Referral * Pain Management (Routine) - Authorized Specialty Diagnoses / Procedures Referred By Contac t Referred To Contact Pain Medicine Diagnoses Chronic neck and back pain Procedures [facility] OFFICE/OUTPATIENT NEW MODERATE MDM 45 MINUTES Xavier Epsosito MD [address] [place] [address] Phone: tel: fax: Anant Guidry MD [address] [address] Phone: tel: fax: Referral ID Status Reason Start Date Expiration Date Visits Requested Visits Authorized [id number] Authorized Specialty Services Required 10/03/2026 1 1 Reason for Visit * Reason Comments Follow-up fibromylagia chronic neck and back pain Encounter Details Date Type Department Care Team (Late st Contact Info) Description 07/04/2025 12:45 PM EST Office Visit [facility] [address] [place] [id number] Xavier Esposito MD [address] [place] [address] COPD with exacerbation (Primary Dx); Nausea; Chronic neck and back pain Social History [...] Sign Reading Time Taken Comments Blood Pressure 150/80 07/04/2025 12:51 PM EST Pulse 107 07/04/2025 12:51 PM EST Temperature 36.6 C (97.8 F) 07/04/2025 12:51 PM EST Respiratory Rate 24 07/04/2025 12:51 PM EST Oxygen Saturation 98% 07/04/2025 12:51 PM EST Inhaled Oxygen Concentration - - Weight 68.7 kg (151 lb 6.4 oz) 07/04/2025 12:51 PM EST Height 162.6 cm (5' 4 ) 07/04/2025 12:51 PM EST Body Mass Index 25.99 07/04/2025 12:51 PM EST documented in this encounter Progress Notes * Xavier Esposito MD - 07/04/2025 12:45 PM EST Chief Complaint Patient presents with Follow-up fibromylagia chronic neck and back pain Subjective Tonya Kamara is a 54 y.o. who presents for shortness of breath, wheezing, chest discomfort that is arecurring issue. Patient has COPD and has been referred to pulmonology and is undergoing workup. She is using her nebs every 4 hours. Patient has both Anoro and Trelegy and has been alternating days with which when she uses. Patient also has chronic neck pain and likely fibromyalgia. Patient has been referred to multiple pain management clinics some of which will no longer see her due to no-shows. Patient lives in [place] and transportation can be difficult for the patient to [place] The following portions of the patient's history were reviewed and updated as appropriate: allergies, current medications, past family history, past medical history, past social history, past surgicalhistory, and problem list. Review of Systems Objective Vital Signs: BP 150/80 Pulse 107 Temp 97.8 ??F (36.6 ??C) Resp 24 Ht 162.6 cm (64 ) Wt 68.7 kg (151 lb6.4 oz) SpO2 98% BMI 25.99 kg/m?? Physical Exam Constitutional: Appearance: Normal appearance. HENT: Head: Normocephalic. Right Ear: External ear normal. Left Ear: External ear normal. Nose: Nose normal. Mouth/Throat: Mouth: Mucous membranes are moist. Eyes: Pupils: Pupils are equal, round, and reactive to light. Cardiovascular: Rate and Rhythm: Normal rate and regular rhythm. Pulmonary: Breath sounds: Decreased air movement present. Wheezing present. Musculoskeletal: Cervical back: Normal range of motion. Neurological: Mental Status: She is alert. Result Review Assessment and Plan Diagnoses and all orders for this visit: 1. COPD with exacerbation (Primary) - methylPREDNISolone (MEDROL) 4 MG dose pack; Take as directed on package instructions. Dispense: 21 tablet; Refill: 0 - doxycycline (VIBRAMYCIN) 100 MG capsule; Take 1 capsule by mouth 2 (Two) Times a Day. Dispense: 14 capsule; Refill: 0 2. Nausea - promethazine (PHENERGAN) 25 MG tablet; Take 1 tablet by mouth Every 6 (Six) Hours As Needed for Nausea or Vomiting. Dispense: 30 tablet; Refill: 1 3. Chronic neck and back pain - Ambulatory Referral to Pain Management Plan 1. Patient is having COPD exacerbation. Given antibiotics and steroids. Follow- up with pulmonology as scheduled next week for imaging and pulmonary function testing 2. Chronic neck and back pain. Discussed available treatment options. Patient has previously been seen at pain clinics where narcotics have been prescribed. I have explained to the patient that medication management of chronic pain is becoming less common. Referred to local pain management, Dr. Austin Follow Up No follow-ups on file. Patient was given instructions and counseling regarding her condition or for health maintenance advice. Please see specific information pulled into the AVS if appropriate. documented in this encounter Plan of Treatment Not on file documented as of this encounter Visit Diagnoses Diagnosis COPD with exacerbation- Primary Nausea Nausea alone Chronic neck and back pain documented in this encounter Care Teams Technology And Engineering Teacher Relationship Specialty Start Date End Date Xavier Esposito MD [address] [place] [address] PCP - General Family Medicine 09/24/24 documented as of this encounter
[2025-07-09] VITALS (10 sets, daily range): BP systolic 134–158; BP diastolic 80–101; PULSE 85–109; RESP 13–25; TEMP 36.6–36.8; O2SAT 95–99; BMI 22.6
--- NOTE | 2025-07-09 17:20 | XR_ITS ---
PROCEDURE INFORMATION: Exam: XR Chest Exam date and time: 07/09/2025 7:05 PM Age: 54 years old Clinical indication: Shortness of breath; Other: Chest pain; Additional info: Cp SOA TECHNIQUE: Imaging protocol: Radiologic exam of the chest. Views: 1 view. Total images: 1 COMPARISON: CR XR CHEST PORTABLE 04/09/2025 8:29 PM FINDINGS: Tubes, catheters and devices: EKG leads are present. Lungs: Bibasilar crowding. No consolidation. No pulmonary vascular congestion or edema. Pleural spaces: Unremarkable. No pleural effusion. No pneumothorax. Heart/Mediastinum: Unremarkable. No cardiomegaly. No mediastinal widening or hilar enlargement. Bones/joints: Unremarkable. IMPRESSION: No radiographically acute cardiopulmonary process.
--- NOTE | 2025-07-09 17:20 | ECG_ITS ---
APPROVED REPORT Exam: Resting ECG HR:98 bpm ECG Measurements Heart Rate 98 AXES [place] 162 P 71 QRSd 91 QRS 75 QT 357 T 58 QTc 412 Conclusion Normal sinus rhythm without acute ST or T wave changes concerning for ischemia Electronically signed by : Alisson Mcmanus, 07/09/2025 23:48:35
--- OUTSIDE RECORDS SUMMARY | 2025-07-09 17:24 | XMS_ITS | Encounter Summary ---
Author Organization Healthcare Address [address] [place] [address] Care Team Providers Care Upfitter Name Role Phone Renard Garcia MD Unavailable [phone] Yohana Aragon DO Unavailable [phone] SydYvette Cheri EMPLOYEE SERVICE OFFICER Unavailable Pcp, No Primary Care Provider Unavailabl e Xavier Esposito MD Primary Care Provider [phone] Encounter Details Date Type Department Care Team (Late st Contact Info) Description 05/13/2025 Telephone [place] [facility] [address] [place] [address] Renard Garcia MD [address] [place] [address] Social History Tobacco Use Types [...] optimal time of day to reach caller: [phone] Note: Please do not reply to this message. Follow-up communication and further actions as a result of this message need to be communicated with the patient directly, if the patient is not active onMyChart. If the patient is active on MyChart, they will receive notification of the communication/outcome via [employer] documented in this encounter Plan of Treatment Upcoming Encounters Date Type Department Care Team (Late st Contact Info) Description 08/09/2025 12:20 PM EST Office Visit [facility] [address] [place] [address] Leanne Burks MD [address] [facility] [address] [place] [address] documented as of this encounter Visit Diagnoses Not on filedocumented in this encounter Additional Health Concerns Assessment Noted Time A fall risk assessment has been complete d for the patient 11/10/2023 10:06 AM EDT A Body Mass Index follow-up plan has been documented for the patient 09/12/2024 3:08 PM EST documented as of this encounter Care Teams Upfitter Relationship Specialty Start Date End Date Pcp, Lauren [address] [place] [address] PCP - General Family Medicine 01/29/25 05/13/25 Xavier Esposito MD [address] [place] [address] PCP - General 05/14/25 Renard Garcia MD [address] [facility] [place] [address] Surgeon Neurosurgery 11/25/21 Yohana Aragon DO [facility] [address] Obstetrics and Gynecology 10/22/22 Yvette Velarde APRN [address] [facility] [place] [id number] Nurse Practitioner Neurosurgery 11/10/23 documented as of this encounter
--- OUTSIDE RECORDS SUMMARY | 2025-07-09 17:24 | XMS_ITS | Encounter Summary ---
Author Organization [facility] Address [address] [place] [address] Care Team Providers Care Java Programming Professor Name Role Phone Renard Garcia MD Unavailable [phone] Yohana Aragon DO Unavailable [phone] Yvette Velarde COST ESTIMATING ENGINEER Unavailable [phone] Xavier Esposito MD Primary Care Provider [phone] Encounter Details Date Type Department Care Team (Late st Contact Info) Description 07/01/2025 Telephone [place] [facility] [address], [address] [place] [address] Yvette Velarde, COST ESTIMATING ENGINEER [address] [place] [address] Social History Tobacco Use Types [...] Notes * Telephone Encounter - Yvette Velarde, COST ESTIMATING ENGINEER - 07/01/2025 4:09 PM EST Tried to contact patient. Patient's mailbox was full. Unable to leave a message. Patient has been discharged from our clinic due to multiple same-day cancellations. She has had multiple letters and extended opportunities. Patient's primary care physician was mailed a letter. They should refer to [facility] or some other location. Happy to speak with her she calls back * Telephone Encounter - Maricruz Delgado - 07/01/2025 2:27 PM EST Patient Phone Message Reason for Call: Pt calling to see about getting an appt but she doesn't want to speak with Art. Please advise Best contact number and optimal time of day to reach caller: [phone] Note: Please do not reply to this message. Follow-up communication and further actions as a result of this message need to be communicated with the patient directly, if the patient is not active onMyChart. If the patient is active on MyChart, they will receive notification of the communication/outcome via Medivo. documented in this encounter Plan of Treatment Upcoming Encounters Date Type Department Care Team (Late st Contact Info) Description 08/09/2025 12:20 PM EST Office Visit [facility] [address] [place] [address] Leanne Burks MD [address] [facility] [address] [place] [address] documented as of this encounter Visit Diagnoses Not on filedocumented in this encounter Additional Health Concerns Assessment Noted Time A fall risk assessment has been complete d for the patient 11/10/2023 10:06 AM EDT A Body Mass Index follow-up plan has been documented for the patient 09/12/2024 3:08 PM EST documented as of this encounter Care Teams Java Programming Professor Relationship Specialty Start Date End Date Xavier Esposito MD [address] [facility] [address] PCP - General 05/14/25 Renard Garcia MD [address] [place] [address] Surgeon Neurosurgery 11/25/21 Yohana Aragon DO [facility] [address] Obstetrics and Gynecology 10/22/22 Yvette Velarde APRN [address] [place] [phone] Nurse Practitioner Neurosurgery 11/10/23 documented as of this encounter
--- OUTSIDE RECORDS SUMMARY | 2025-07-09 17:24 | XMS_ITS | Encounter Summary ---
Author Organization Healthcare Address [address] [place] [address] Care Team Providers Care Steak Tenderizer Machine Name Role Phone Renard Garcia MD Unavailable [phone] Yohana Aragon DO Unavailable [phone] Boogie Velardela Cheri INTEGRATED CIRCUITS INSPECTOR Unavailable Xavier Esposito MD Primary Care Provider Encounter Details Date Type Department Care Team (Late st Contact Info) Description 05/29/2025 Telephone [place] [facility] [address], [address] [place] [address] Renard Garcia MD [address] [place] [address] Social History Tobacco Use Types [...] Notes * Telephone Encounter - Art Beatty W - 05/29/2025 3:15 PM EST 05/29/2025 - Spoke to patient directly - Patient has been advised to see her PCP to be evaluated and referred to a Non- Spine provider. - Patient has NO-Showed / Canceled the same day for her past [address] Garcia and has repeatedly called the same day to cancel/ reschedule which still is counted as a No-Show against her attendance record and unfortunately has exceeded the number of visits she could be rescheduled. The patient has been sent letters in the past, and has been sent a letter of dismissal that has also been sent to her PCP. * Telephone Encounter - Valencia Will - 05/29/2025 8:45 AM EST Patient Phone Message Reason for Call: Patient calling to r/s appt today asking for Tuesday is having transportation issues Best contact number and optimal time of day to reach caller: [phone] Note: Please do not reply to this message. Follow-up communication and further actions as a result of this message need to be communicated with the patient directly, if the patient is not active onMyChart. If the patient is active on MyChart, they will receive notification of the communication/outcome via Shakat. documented in this encounter Plan of Treatment Upcoming Encounters Date Type Department Care Team (Late st Contact Info) Description 08/09/2025 12:20 PM EST Office Visit [facility] [address] [place] [address] Leanne Burks MD [address] [facility] [address] [place] [address] documented as of this encounter Visit Diagnoses Not on filedocumented in this encounter Additional Health Concerns Assessment Noted Time A fall risk assessment has been complete d for the patient 11/10/2023 10:06 AM EDT A Body Mass Index follow-up plan has been documented for the patient 09/12/2024 3:08 PM EST documented as of this encounter Care Teams Steak Tenderizer Machine Relationship Specialty Start Date End Date Xavier Esposito MD [address] [place] [address] PCP - General 05/14/25 Renard Garcia MD [address] [place] [phone] Surgeon Neurosurgery 11/25/21 Yohana Aragon DO [facility] [address] Obstetrics and Gynecology 10/22/22 Yvette Velarde APRN [address] [place] [address] Nurse Practitioner Neurosurgery 11/10/23 documented as of this encounter
--- OUTSIDE RECORDS SUMMARY | 2025-07-09 17:24 | XMS_ITS | Clinical Summary ---
Author Organization [facility] Address [facility] [place] [id number] Care Team Providers Care Gas Utility Worker Name Role Phone Renard Garcia MD Unavailable [phone] Yohana Aragon DO Unavailable [phone] Boogie Velardela Cheri SENIOR TABLEAU DEVELOPER Unavailable [phone] Xavier Esposito MD Primary Care Provider [phone] Allergies Active Allergy Reactions Criticality Noted Date [...] needed for irritation. 5 Active HYDROcodone-errol taminophen (Bimble) 10-325 MG tablet Take 1 tablet (10 [...] (11/25/2021): Added automatically from request for surgery [id number] Resolved Problems Problem Noted Date Diagnosed Date Resolved Date Debility 09/07/2024 04/14/2025 Encounters Date Type Department Care Team Description 07/01/2025 Telephone [facility] [address], [address] [place] [phone] Yvette Velarde, SENIOR TABLEAU DEVELOPER 05/29/2025 Telephone [facility] [address], [address] [place] [address] Renard Garcia MD 05/13/2025 Telephone [facility] [address], [facility] [place] [address] Renard Garcia MD 05/06/2025 Telephone [facility] Primary [facility] [address] [place] [address] Pcp, No HCN Clinical Concern/Question 05/03/2025 3:50 PM EDT - 05/03/2025 9:25 PM EDT Emergency [facility] [address] [place] [address] Kaushik Gutierrez MD Other chest pain (Primary Dx); Generalized abdominal pain; Other chronic back pain Discharge Disposition: Home or Self Care 05/03/2025 Travel 04/24/2025 Telephone [place] [address], [address] [place] [phone] Renard Garcia MD HCN - Patient Message (Return call) 04/22/2025 Telephone [place] [address] [address] Renard Garcia MD from Last 3 Months [...] Description 08/09/2025 12:20 PM EST Office Visit [facility] [address] [place] [address] Leanne Burks MD [address] [facility] [address] [place] [address] Health Maintenance Due Date Last Done Comments [facility]-Depression Screening 1971 [facility]-/Child/Adol SDOH Screenings 1971 [facility]- SDOH Screenings 11/15/1989 [facility]-Adult SDOH Screenings 11/15/1989 [facility]-DTaP,Tdap,and Td Vaccine s (1 - Tdap) 11/15/1990 [facility]-Pneumococcal Vaccine: 50 + Years (1 of 2 - PCV) 11/15/1990 CT Colonography 11/15/2016 Colonoscopy 11/15/2016 FIT-DNA 11/15/2016 FIT 11/15/2016 FOBT 11/15/2016 Sigmoidoscopy 11/15/2016 [facility]-Colorectal Cancer Screening 11/15/2016 [facility]-Hepatitis B Vaccines (2 of 3 - Hep B Twinrix 3-dose series) 08/08/2018 07/11/2018 [id number] Vaccine (2 - Pfizer risk series) 04/27/2021 04/06/2021 [facility]-Breast Cancer Screening 11/15/2021 [facility]-Zoster Vaccines (1 of 2) 11/15/2021 [facility]-Influenza Vaccine (#1) 2025 [facility]-Hepatitis A Vaccines Aged Out 07/11/2018 No longer eligible based on patient's age to complete this topic [facility]-Obesity Intervention Completed 025, 09/06/2024, 11/10/2023 [facility]-Hepatitis C Screening Completed 2024, 11/03/2023, 07/10/2019 [facility]-HIV Screening Completed 01/29/2025, 11/03/2023, 07/10/2019 HPV Vaccines (No Doses Required) Completed [facility]-HIB Vaccines Aged Out No longer e ligible based on patient's age to complete this topic [facility]-IPV Vaccines Aged Out No longer e ligible based on patient's age to complete this topic [facility]-Rotavirus Vaccines Aged Out No lo nger eligible based on patient's age to complete this topic Medical Devices Implanted Type Area Candy Roller Device Identifier Shelf Expiration Date Model / Serial / Lot One Level Plate, 12mm - [id number] Implanted:Qty : 1 on 11/28/2021 by Renard Garcia MD at [facility] Plate Spine Cervical [id number] 11/28/2022 [id number] / / Self Drilling Screw 14mm - [id number] Implanted:Qty : 2 on 11/28/2021 by Renard Garcia MD at [facility] Screw Spine Cervical [id number] 11/28/2022 [id number] / / Large Diameter 14mm - [id number] Implanted:Qty : 2 on 11/28/2021 by Renard Garcia MD at [facility] Screw Spine Cervical [id number] 11/28/2022 [id number] / / Nut Retainer - [id number] Implanted:Qty : 2 on 11/28/2021 by Renard Garcia MD at [facility] Washer Spine Cervical [employer] [id number] 11/28/2022 [id number] / / Knee Vanguard1 Cervical Preservon 7mm - [id number] - [id number] Implanted:Qty : 1 on 11/28/2021 by Renard Garcia MD at [facility] Spine Cervical [facility]-[id number] 07/05/2026 [id number] / [id number] / [id number] Graft Vivigen 1cc - [id number] - [id number] Implanted:Qty : 1 on 11/28/2021 by Renard Garcia MD at [facility] Spine Cervical [facility]-[id number] 11/18/2022 [id number] / [id number] / [id number] Procedures Procedure Name Priority Date/Time Associated Diagnosis [...] fracture. Mild degenerative changes of the spine. [id number] vertebra. Unchanged minimal anterolisthesis of L3 on L4. IMPRESSION: 1. Unremarkable unenhanced examination of the abdomen and pelvis. CRITICAL RESULT: No. COMMUNICATION: Per this written report. Drafted by Yohana Nguyen MD on 05/03/2025 8:31 PM Final report signed by Yohana Nguyen MD on 05/03/2025 8:43 PM Kaushik Gutierrez MD IMG CT PROCEDURES Final Resul t * Troponin T, High Sensitivity, 2 Hour, Plasma (05/03/2025 5:26 PM EDT) Troponin T, High Sensitivity, 2 Hour <6 <14 ng/L 05/03/2025 6:02 PM EDT [facility] Blood Venous blood specimen / Unknown Venipuncture / Unknown 05/03/2025 5:26 PM EDT 05/03/2025 5:28 PM EDT Ronny Zeng MD LAB BLOOD ORDERABLES Fi nal Result [facility] [address] [place] [address] * XR Chest 1 View (05/03/2025 4:27 [...] <6 <14 ng/L 05/03/2025 3:45 PM EDT [facility] Blood Venous blood specimen / Unknown Venipuncture / Unknown 05/03/2025 3:15 PM EDT 05/03/2025 3:20 PM EDT Ronny Zeng MD LAB BLOOD ORDERABLES Fi nal Result [facility] [address] [place] [address] * D-Dimer, Quantitative (05/03/2025 3:15 PM EDT) Pathologist [facility] D Dimer, Quantitative 0.42 <0.50 ug/mL FEU 05/03/2025 3:38 PM EDT [facility] Blood Venous blood specimen / Unknown Venipuncture / Unknown 05/03/2025 3:15 PM EDT 05/03/2025 3:20 PM EDT Narrative [facility] - 05/03/2025 3:38 PM [...] MD LAB BLOOD ORDERABLES Fi nal Result [facility] [address] [place] [address] * BNP (05/03/2025 3:15 PM EDT) Pathologist [facility] N-Terminal, PROBNP, Plasma 77 0 - 899 pg/mL 05/03/2025 3:45 PM EDT [facility] Blood Venous blood specimen / Unknown Venipuncture / Unknown 05/03/2025 3:15 PM EDT 05/03/2025 3:20 PM EDT us Ronny Zeng MD LAB BLOOD ORDERABLES Fi nal Result Performing Organization Address City/[facility]/ZIP Co de Phone Number [facility] [address] [place] [address] * (ABNORMAL) CBC w/diff (05/03/2025 3:15 PM EDT) [facility] WBC Count 7.20 3.70 - 10.30 10*3/uL LAB HEMATOLOGY METHOD 05/03/2025 3:22 PM EDT [facility] RBC Count 4.35 3.90 - 5.20 10*6/uL LAB HEMATOLOGY METHOD 05/03/2025 3:22 PM EDT [facility] HGB 13.0 11.2 - 15.7 g/dL LAB HEMATOLOGY METHOD 05/03/2025 3:22 PM EDT [facility] HCT 39.5 34.0 - 45.0 % LAB HEMATOLOGY METHOD 05/03/2025 3:22 PM EDT [facility] Platelet Count 407(H) 155 - 369 10*3/uL LAB HEMATOLOGY METHOD 05/03/2025 3:22 PM EDT [facility] MCV 91 79 - 98 fL LAB HEMATOLOGY METHOD 05/03/2025 3:22 PM EDT [facility] MCH 29.9 26.0 - 32.0 pg LAB HEMATOLOGY METHOD 05/03/2025 3:22 PM EDT [facility] MCHC 32.9 30.7 - 35.5 g/dL LAB HEMATOLOGY METHOD 05/03/2025 3:22 PM EDT [facility] RDW 15.1(H) 11.5 - 14.5 % LAB HEMATOLOGY METHOD 05/03/2025 3:22 PM EDT [facility] MPV 8.9 8.8 - 12.5 fL LAB HEMATOLOGY METHOD 05/03/2025 3:22 PM EDT [facility] nRBC 0.0 <=0.0 per 100 WBCs LAB HEMATOLOGY METHOD 05/03/2025 3:22 PM EDT [facility] Differential Type Automated LAB HEMATOLOGY METHOD 05/03/2025 3:22 PM EDT [facility] Neutrophils % 51 % LAB HEMATOLOGY METHOD 05/03/2025 3:22 PM EDT [facility] Lymphocytes % 45 % LAB HEMATOLOGY METHOD 05/03/2025 3:22 PM EDT [facility] Monocytes % 4 % LAB HEMATOLOGY METHOD 05/03/2025 3:22 PM EDT [facility] Eosinophils % 0 % LAB HEMATOLOGY METHOD 05/03/2025 3:22 PM EDT [facility] Basophils % 0 % LAB HEMATOLOGY METHOD 05/03/2025 3:22 PM EDT [facility] Immature Granulocytes % 0 % LAB HEMATOLOGY METHOD 05/03/2025 3:22 PM EDT [facility] Neutrophils Absolute 3.60 1.60 - 6.10 10*3/uL LAB HEMATOLOGY METHOD 05/03/2025 3:22 PM EDT [facility] Lymphocytes Absolute 3.25 1.20 - 3.90 10*3/uL LAB HEMATOLOGY METHOD 05/03/2025 3:22 PM EDT [facility] Monocytes Absolute 0.30 0.30 - 0.90 10*3/uL LAB HEMATOLOGY METHOD 05/03/2025 3:22 PM EDT [facility] Eosinophils Absolute 0.01 0.00 - 0.50 10*3/uL LAB HEMATOLOGY METHOD 05/03/2025 3:22 PM EDT [facility] Basophils Absolute 0.03 0.00 - 0.10 10*3/uL LAB HEMATOLOGY METHOD 05/03/2025 3:22 PM EDT [facility] Immature Granulocytes Absolute 0.01 0.00 - 0.06 10*3/uL LAB HEMATOLOGY METHOD 05/03/2025 3:22 PM EDT [facility] Blood Venous blood specimen / Unknown Venipuncture / Unknown 05/03/2025 3:15 PM EDT 05/03/2025 3:20 PM EDT Narrative [facility] - 05/03/2025 3:22 PM EDT Therapeutic decision making should be based on absolute values, rather than percentages. us Ronny Zeng MD LAB BLOOD ORDERABLES Fi nal Result [facility] [address] [place] [address] * (ABNORMAL) Blood gas panel, venous (05/03/2025 3:15 PM EDT) pH, Venous 7.41 7.32 - 7.43 LAB HEMATOLOGY METHOD 05/03/2025 3:22 PM EDT [facility] pCO2, Venous 41 37 - 52 mmHg LAB HEMATOLOGY METHOD 05/03/2025 3:22 PM EDT [facility] pO2, Venous 29 25 - 40 mmHg LAB HEMATOLOGY METHOD 05/03/2025 3:22 PM EDT [facility] SO2, Measured, Venous 47(L) 65 - 80 % LAB HEMATOLOGY METHOD 05/03/2025 3:22 PM EDT [facility] Base Excess, Venous 0.9 -2.0 - 3.0 mmol/L LAB HEMATOLOGY METHOD 05/03/2025 3:22 PM EDT [facility] Bicarbonate, Calculated, Venous 26 22 - 26 mmol/L LAB HEMATOLOGY METHOD 05/03/2025 3:22 PM EDT [facility] Hematocrit, Whole Blood 40.4 34.0 - 45.0 % LAB HEMATOLOGY METHOD 05/03/2025 3:22 PM EDT [facility] Sodium, Whole Blood 144 136 - 145 mmol/L LAB HEMATOLOGY METHOD 05/03/2025 3:22 PM EDT [facility] Potassium, Whole Blood 3.7 3.6 - 4.9 mmol/L LAB HEMATOLOGY METHOD 05/03/2025 3:22 PM EDT [facility] Chloride, Whole Blood 104 97 - 107 mmol/L LAB HEMATOLOGY METHOD 05/03/2025 3:22 PM EDT [facility] Glucose, Whole Blood 80 74 - 99 mg/dL LAB HEMATOLOGY METHOD 05/03/2025 3:22 PM EDT [facility] Lactate, Venous, Whole Blood 1.5 0.5 - 2.2 mmol/L LAB HEMATOLOGY METHOD 05/03/2025 3:22 PM EDT [facility] Ionized Calcium, Whole Blood 4.9 4.6 - 5.1 mg/dL LAB HEMATOLOGY METHOD 05/03/2025 3:22 PM EDT [facility] Blood Venous blood specimen / Unknown Venipuncture / Unknown 05/03/2025 3:15 PM EDT 05/03/2025 3:20 PM EDT us Ronny Zeng MD LAB BLOOD ORDERABLES Fi nal Result [facility] [address] [place] [address] * (ABNORMAL) CMP (05/03/2025 3:15 PM EDT) Glucose, Plasma 80 74 - 99 mg/dL 05/03/2025 3:54 PM EDT [facility] BUN, Plasma 6(L) 7 - 21 mg/dL 05/03/2025 3:54 PM EDT [facility] Creatinine, Plasma 0.52(L) 0.60 - 1.10 mg/dL 05/03/2025 3:54 PM EDT [facility] BUN/Creatinine Ratio 12 05/03/2025 3:54 PM EDT [facility] Sodium, Plasma 144 136 - 145 mmol/L 05/03/2025 3:54 PM EDT [facility] Potassium, Plasma 4.3 3.6 - 4.9 mmol/L 05/03/2025 3:54 PM EDT [facility] Comment:Hemolyzed, result ma y be falsely increased. Chloride, Plasma 100 97 - 107 mmol/L 05/03/2025 3:54 PM EDT [facility] CO2, Plasma 22 22 - 29 mmol/L 05/03/2025 3:54 PM EDT [facility] Anion Gap 22(H) 6 - 16 mmol/L 05/03/2025 3:54 PM EDT [facility] Total Calcium, Plasma 10.2 8.9 - 10.2 mg/dL 05/03/2025 3:54 PM EDT [facility] Total Protein 8.8(H) 6.3 - 7.9 g/dL 05/03/2025 3:54 PM EDT [facility] Albumin, Plasma 4.9 3.5 - 5.2 g/dL 05/03/2025 3:54 PM EDT [facility] AST, Plasma 57(H) 10 - 35 U/L 05/03/2025 3:54 PM EDT [facility] Comment:Hemolyzed, result ma y be falsely increased. ALT, Plasma 21 10 - 35 U/L 05/03/2025 3:54 PM EDT [facility] Alkaline Phosphatase, Plasma 129(H) 35 - 104 U/L 05/03/2025 3:54 PM EDT [facility] Total Bilirubin, Plasma 0.4 0.2 - 1.1 mg/dL 05/03/2025 3:54 PM EDT [facility] eGFRcr 111.3 mL/min/1.7 3m*2 05/03/2025 3:54 PM EDT [facility] Comment:Reported eGFRcr in m L/min/1.73m2 is based the CKD-EPI 2020 equation that does not use a race coefficient. Blood Venous blood specimen / Unknown Venipuncture / Unknown 05/03/2025 3:15 PM EDT 05/03/2025 3:20 PM EDT us Ronny Zeng MD LAB BLOOD ORDERABLES Fi nal Result [facility] [address] [place] [address] * EKG now - STAT (adult) (05/03/2025 2:57 PM EDT) EKG DIAGNOSIS CLASS Normal MUSE ECG Ventricular Rate 91 BPM MUSE ECG Atrial Rate 96 BPM MUSE ECG VA Interval 152 ms MUSE ECG QRSD Interval 76 ms MUSE ECG QT Interval 372 ms MUSE ECG QTC Interval 457 ms MUSE ECG P Rives 50 degrees MUSE ECG R Rives 32 degrees MUSE ECG T Wave Rives 38 degrees MUSE ECG Diagnosis Normal sinus rhythm MUSE ECG Diagnosis MUSE ECG Diagnosis MUSE ECG Diagnosis Confirmed by Mark Luther ([id number]) on 05/03/2025 10:42:37 PM MUSE ECG 05/03/2025 2:57 PM EDT 05/03/2025 10:42 PM EDT Kaushik Gutierrez MD ECG ORDERABLES Final Result MUSE ECG * ED HIV 1/2 Antibody/Antigen Screen w/Reflex to HIV 1/2 Differentiation (01/29/2025 12:49 AM EDT) Pathologist [facility] HIV 1 & 2 Antibody/Antigen Screen Non Reactive Non Reactive 01/29/2025 1:41 AM EDT [facility] Comment:Screening for HIV 1 & 2 antibodies, and P24 antigen is NONREACTIVE. No confirmatory testing is required. Blood Venous blood specimen / Unknown Venipuncture / Unknown 01/29/2025 12:49 AM EDT 01/29/2025 1:01 AM EDT Jose Luis Tolbert DO LAB BLOOD ORDERABLES Final R esult [facility] [address] [place] [address] * Hepatitis panel, acute (09/07/2024 8:04 AM EST) Hepatitis B Surf Antigen Negative Negative 09/07/2024 10:36 AM EST [facility] Hepatitis C Antibody Negative Negative 09/07/2024 10:36 AM EST [facility] Hepatitis A Antibody IgM Negative Negative 09/07/2024 10:36 AM EST [facility] Hepatitis B Core Antibody IgM Negative Negative 09/07/2024 10:36 AM EST [facility] Blood Venous blood specimen / Unknown Venipuncture / Unknown 09/07/2024 8:04 AM EST 09/07/2024 8:14 AM EST Manjit Whitt SENIOR TABLEAU DEVELOPER, DNP LAB BLOOD ORDERABLES Fi nal Result [facility] [address] [place] [address] from Last 3 Months or Most Recently Relevant to Health Maintenance Insurance [facility] MEDICAID Advance Directives * Full Code (Latest Code Status on File) Date Activated Date Inactivated Comments 09/07/2024 6:46 AM 09/12/2024 6:58 PM Question Answer Comments Patient has decision-making capacity? Yes Care Teams Gas Utility Worker Relationship Specialty Start Date End Date Xavier Esposito MD [address] [place], [place] [id number] PCP - General 05/14/25 Renard Garcia MD [address] [place] [address] Surgeon Neurosurgery 11/25/21 Yohana Aragon DO [facility] [address] Obstetrics and Gynecology 10/22/22 Yvette Velarde APRN [address] [place] [phone] Nurse Practitioner Neurosurgery 11/10/23
--- OUTSIDE RECORDS SUMMARY | 2025-07-09 17:25 | XMS_ITS | Encounter Summary ---
Author Organization [facility] Address [address] [place] [address] Care Team Providers Care Bleach Supervisor Name Role Phone Xavier Espoisto MD Primary Care Provider + Encounter Details Date Type Department Care Team (Latest Contact Info) Description 07/04/2025 Travel Social History Tobacco Use Types Packs/Day [...] on filedocumented in this encounter Care Teams Bleach Supervisor Relationship Specialty Start Date End Date Xavier Esposito MD [address] [place] [id number] PCP - General Family Medicine 09/24/24 documented as of this encounter
--- OUTSIDE RECORDS SUMMARY | 2025-07-09 17:25 | XMS_ITS | Encounter Summary ---
Author Organization [facility] Address [address] [place] [address] Care Team Providers Care Band Instrument Repairer Name Role Phone Xavier Esposito MD Primary Care Provider + Reason for Visit * Reason Onset Date Comments Med Management 07/05/2025 Encounter Details Date Type Department Care Team (Late st Contact Info) Description 07/05/2025 Telephone [facility] FAMILY MEDICINE [address] [place] [address] Xavier Esposito MD [address] [place] [address] Med Management Social History Tobacco Use Types Packs/Day Years [...] Telephone Encounter - Irma Cuba MA - 07/05/2025 5:07 PM EST Informed pt * Telephone Encounter - Xavier Esposito MD - 07/05/2025 4:11 PM EST No. The patient was told no to this question at her appointment as well * Telephone Encounter - Sachin Kamron Castaneda - 07/05/2025 2:04 PM EST Caller: Tonya Kamara Relationship: Self Best call back number: [phone] What medication are you requesting: HYDROCODONE 7.5MG TAKE 3 TABLETS A DAY What are your current symptoms: PAIN IN NECK AND BACK If a prescription is needed, what is your preferred pharmacy and phone number: [facility] - [place], [place] - [address] [address] [address] - [phone] PH - [phone] FX Additional notes: PCP HAS PRESCRIBED THE ABOVE MEDICATION AND THEN SHE WENT TO A PAIN MANAGEMENT [facility] AND GOT IT BUT SHE STATED SHE CAN'T TRAVEL THAT FAR. PCP REFERRED TO A PAIN MANAGEMENT [facility] AND THE CONSULTATION APPT IS NOT UNTIL 08/05/24. SHE IS WANTING TO SEE IF PCP WILL CALL HER IN ENOUGH MEDICATION TO AT LEAST GET HER TO THE APPT. CALL PATIENT TO ADVISE * Telephone Encounter - Jolie Rosa - 07/05/2025 1:24 PM EST Tonya called in stating that Daniela Swann who reported to the office that she was taking her medication incorrectly. However Tonya stated that she hasn't have had her pain medication in quite a few days and that she was taking the hydrocodone 7.5 mg that her previously pain provider was taking. She stated she would take it around about 5:30 am, about 2:00 pm and 6:30 to 7:00 pm. She stated she is not sure how this was taking her medication incorrectly. documented in this encounter Plan of Treatment Not on file documented as of this encounter Visit Diagnoses Not on filedocumented in this encounter Care Teams Band Instrument Repairer Relationship Specialty Start Date End Date Xavier Esposito MD [address] [place] [address] PCP - General Family Medicine 09/24/24 documented as of this encounter
--- OUTSIDE RECORDS SUMMARY | 2025-07-09 17:25 | XMS_ITS | Encounter Summary ---
Author Organization [facility] Address [address] [place] [id number] Care Team Providers Care Seamer Elastic Band Name Role Phone Xavier Esposito MD Primary Care Provider + Reason for Visit * Reason Onset Date Comments Med Refill 07/05/2025 Encounter Details Date Type Department Care Team (Late st Contact Info) Description 07/05/2025 Refill [facility] FAMILY MEDICINE [address] [place] [address] Xavier Esposito MD [address] [place] [address] Chronic diarrhea Social History Tobacco Use Types Packs/Day Years [...] encounter Miscellaneous Notes * Telephone Encounter - Tonya Stephenson RegSched Rep - 07/05/2025 2:12 PM EST Caller: Tonya Kamara Relationship: Self Best call back number: [phone] Requested Prescriptions: Requested Prescriptions Pending Prescriptions Disp Refills loperamide (IMODIUM) 2 MG capsule 30 capsule 1 Sig: Take 1 capsule by mouth As Needed for Diarrhea. hydrocortisone 1 % cream WITH ALOE PATIENT STATED Pharmacy where request should be sent: [facility] - [place], [place] - [address] [address] [address] - [phone] - [phone] FX Last office visit with prescribing clinician: 07/04/2025 Last telemedicine visit with prescribing clinician: Visit date not found Next office visit with prescribing clinician: Visit date not found Does the patient have less than a 3 day supply: [x] Yes [] No Would you like a call back once the refill request has been completed: [] Yes [x] No If the office needs to give you a call back, can they leave a voicemail: [] Yes [x] No Kamron Lockett Rep 07/05/25 14:13 EST documented in this encounter Plan of Treatment Not on file documented as of this encounter Visit Diagnoses Diagnosis Chronic diarrhea Diarrhea documented in this encounter Care Teams Seamer Elastic Band Relationship Specialty Start Date End Date Xavier Esposito MD [address] [place] [address] PCP - General Family Medicine 09/24/24 documented as of this encounter
--- OUTSIDE RECORDS SUMMARY | 2025-07-09 17:25 | XMS_ITS | Clinical Summary ---
Author Organization [facility] Address [address] [place] [address] Care Team Providers Care Shank Breaker Name Role Phone Xavier Esposito MD Primary Care Provider + Allergies Active Allergy Reactions Criticality Noted Date Comments Azithromycin Unknown (See Comments) Low 07/10/2019 Codeine Hives,Itching,Swelling High 07/10/2019 Erythromycin Hives,Itching,Swelling High 11/28/2021 Ibuprofen Hives,Itching,Swelling High 06/20/2024 Iodinated Contrast Media Anaphylaxis High 09/20/2024 Latex Rash Low 11/26/2021 Lidocaine Anaphylaxis High 06/17/2025 Penicillins Unknown (See Comments) Low 07/10/2019 Tramadol Hives,Itching,Swelling High 06/20/2024 Medications hydrocortisone 1 % cream 024 Active benzonatate (Tessalon Perles) 100 MG capsule Take 1 capsule by mouth 3 (Three) Times a Day As Needed for Cough. 30 capsule 025 Active aspirin 81 MG EC tablet Take 1 tablet by mouth Daily. Active levothyroxine (SYNTHROID, LEVOTHROID) 25 MCG tabletIndications :Acquired hypothyroidism Take 1 tablet by mouth Daily. 90 tablet 1 025 Active Umeclidinium-Luanne nterol (Anoro Ellipta) 62.5-25 MCG/ACT aerosol powder inhalerIndication s:Chronic obstructive pulmonary disease, unspecified COPD type Inhale 1 puff Daily. 60 each 5 025 Active albuterol (PROVENTIL) (2.5 MG/3ML) 0.083% nebulizer solutionIndicatio ns:Chronic obstructive pulmonary disease, unspecified COPD type Take 2.5 mg by nebulization Every 4 (Four) Hours As Needed for Wheezing. 300 mL 2 Active fluticasone (FLONASE) 50 MCG/ACT nasal sprayIndications: Seasonal allergies Administer 2 sprays into the nostril(s) as directed by provider Daily. 15.8 g 2 Active omeprazole (priLOSEC) 40 MG capsuleIndication s:Gastroesophagea l reflux disease without esophagitis TAKE 1 CAPSULE BY MOUTH ONCE A DAY 30 capsule 1 025 Active promethazine (PHENERGAN) 25 MG tabletIndications :Nausea Take 1 tablet by mouth Every 6 (Six) Hours As Needed for Nausea or Vomiting. 30 tablet 1 025 Active methylPREDNISolon e (MEDROL) 4 MG dose packIndications:C OPD with exacerbation Take as directed on package instructions. 21 tablet 025 Active doxycycline (VIBRAMYCIN) 100 MG capsuleIndication s:COPD with exacerbation Take 1 capsule by mouth 2 (Two) Times a Day. 14 capsule 025 Active loperamide (IMODIUM) 2 MG capsuleIndication s:Chronic diarrhea Take 1 capsule by mouth As Needed for Diarrhea. 30 capsule 1 025 Active fluticasone (FLONASE) 50 MCG/ACT nasal spray 023 2024 Discontinued(R eorder) levothyroxine (SYNTHROID, LEVOTHROID) 25 MCG tablet Take 1 tablet by mouth Daily. 023 2024 Discontinued(R eorder) loperamide (IMODIUM) 2 MG capsule 023 2024 Discontinued(R eorder) albuterol (PROVENTIL) (2.5 MG/3ML) 0.083% nebulizer solution Take 2.5 mg by nebulization. 2024 Discontinued(R eorder) Umeclidinium-Luanne nterol (Anoro Ellipta) 62.5-25 MCG/ACT aerosol powder inhalerIndication s:Chronic obstructive pulmonary disease, unspecified COPD type Inhale 1 puff Daily. 60 each 5 025 2024 Discontinued(R eorder) promethazine (PHENERGAN) 25 MG tablet TAKE 1 TABLET BY MOUTH EVERY 6 HOURS NEEDED FOR NAUSEA AND VOMITING 30 tablet 025 2024 Discontinued(R eorder) omeprazole (priLOSEC) 40 MG capsuleIndication s:Gastroesophagea l reflux disease without esophagitis TAKE 1 CAPSULE BY MOUTH ONCE A DAY 30 capsule 1 025 2024 Discontinued atorvastatin (LIPITOR) 80 MG tablet Take 1 tablet by mouth every night at bedtime. 2024 Discontinued(P atient Reported Not Taking) gabapentin (NEURONTIN) 300 MG capsule Take 1 capsule by mouth 4 (Four) Times a Day. 2024 Discontinued(P atient Reported Not Taking) HYDROcodone-aceta minophen (NORCO) 7.5-325 MG per tablet Take 1 tablet by mouth 3 (Three) Times a Day. 2024 Discontinued(P atient Reported Not Taking) loperamide (IMODIUM) 2 MG capsuleIndication s:Chronic diarrhea Take 1 capsule by mouth As Needed for Diarrhea. 30 capsule 1 025 2024 Discontinued(R eorder) promethazine (PHENERGAN) 25 MG tabletIndications :Nausea Take 1 tablet by mouth Every 6 (Six) Hours As Needed for Nausea or Vomiting. 30 tablet 025 2024 Discontinued(R eorder) Active Problems Problem Noted Date Diagnosed Date [...] of the L-spine in ER visit at [facility] revealing mild to moderate degenerative changes with mild L4 and L5 retrolisthesis which is stable, no acute abnormality. Referring to pain management for further evaluation, noting up until recently had been prescribed [place] 10 mg 4 times daily and gabapentin [...] Dr. Oswaldo Carrasquillo of general surgery in [place], patient indicating had 2 polyps left [...] (09/08/2023 6:18 PM EST): Obtain records from [facility]. Keep [facility] follow-up. 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 Vaginal Pap smear with LGSIL 08/25/2022 Resolved Problems Problem Noted Date Diagnosed Date Resolved Date Chronic back pain 10/22/2022 09/08/2023 Cervical myelopathy 11/25/2021 09/08/19 24 Overview (09/06/2023): Added automatically from request for surgery [id number] Encounters Date Type Department Care Team Description 07/05/2025 Refill [facility] MEDICINE [address] [place] [address] Xavier Esposito MD Chronic diarrhea 07/05/2025 Telephone [facility] FAMILY MEDICINE [address] [address] Xavier Esposito MD Med Management 07/04/2025 12:45 PM EST Office Visit [facility] [address] [place] [address] Xavier Esposito MD COPD with exacerbation (Primary Dx); Nausea; Chronic neck and back pain 07/04/2025 Travel 07/01/2025 Refill [facility] [address] [place] [address] Xavier Esposito MD Gastroesophageal reflux disease without esophagitis 06/18/2025 Telephone [facility] [address] [place] [address] Xavier Esposito MD Med Refill 06/18/2025 Results Follow-Up [facility] [address] [place] [address] Azalea Jones APRN 06/17/2025 8:00 AM EST Office Visit [facility] [address] [place] [address] Azalea Jones, ARCHITECTURAL DRAFTSMAN Fibromyalgia (Primary Dx); Chronic obstructive pulmonary disease, unspecified COPD type; Chronic neck and back pain; Lumbar disc disease with radiculopathy; Seasonal allergies; Acquired hypothyroidism; Chronic diarrhea; Nausea; Raynaud's disease without gangrene 06/17/2025 Refill [facility] [address] [place] [address] Xavier Esposito MD 06/17/2025 Travel 04/29/2025 Telephone [facility] [address] [place] [address] Xavier Esposito MD ORDER REQUEST 04/22/2025 8:15 AM EDT Office Visit [facility] [address] [place] [address] Xavier Esposito MD Atypical chest pain (Primary Dx); Chronic neck and back pain; Anxiety; Fibromyalgia; Tear of left rotator cuff, unspecified tear extent, unspecified whether traumatic 04/22/2025 Travel 04/16/2025 Refill [facility] [address] [place] [address] Xavier Esposito MD Gastroesophageal reflux disease without esophagitis 04/12/2025 Refill [facility] [address] [place] [address] Xavier Esposito MD from Last 3 Months Immunizations Immunization [...] Mass Index 25.99 07/04/2025 12:51 PM EST Plan of Treatment Health Maintenance Due Date Last Done Comments Annual Gynecologic Pelvic an d Breast Exam 1971 TDAP/TD VACCINES (1 - Tdap) 11/15/1990 ZOSTER VACCINE (1 of 2) 11/15/2021 ANNUAL PHYSICAL 09/01/2023 INFLUENZA VACCINE 12/14/2025 Postponed from 02/22/2025 (Patient Refused) Pneumococcal Vaccine 50+ (1 of 2 - PCV) 12/14/2025 Postponed from 11/15 (Patient Refused) MAMMOGRAM 05/18/2027 05/15/2025, 05/25/2023, 02/25/2023 HEPATITIS C SCREENING Completed 09/07/2024 , 11/03/2023 Procedures Procedure Name Priority Date/Time Associated Diagnosis Comments TSH RFX ON ABNORMAL TO FREE T4 Routine 06/17/2025 9:17 AM EST Acquired hypothyroidism COMPREHENSIVE METABOLIC PANEL Routine 06/17/2025 9:17 AM EST Acquired hypothyroidism CBC (NO DIFF) Routine 06/17/2025 9:17 AM EST Acquired hypothyroidism SCANNED - MAMMO 05/15/2025 from Last 3 Months Results * TSH Rfx On Abnormal To Free T4 (06/17/2025 9:17 AM EST) TSH 2.090 0.270 - 4.200 uIU/mL [facility] Blood 06/17/2025 9:17 AM EST 06/17/2025 Narrative [facility]) - 06/18/2025 3:07 AM EST Performed at: [address] [place] [address] [id number] Piggyback Clerk: Evelio Luo MD, Phone: [phone] Patient Fasting: Y us Azalae Jones ARCHITECTURAL DRAFTSMAN LAB BLOOD ORDERABLES Final R esult [facility] ([facility]) [address] [place] [address], [place] [phone] [facility] [address] [place] [address], [place] [phone] * (ABNORMAL) CBC (No Diff) (06/17/2025 9:17 AM EST) WBC 5.89 3.40 - 10.80 10*3/mm3 [facility] [...] - 06/18/2025 3:07 AM EST Performed at: [address] [place] [address] [id number] Piggyback Clerk: Evelio Luo MD, Phone: [phone] Patient Fasting: Y Azalea Jones APRN LAB BLOOD ORDERABLES Final R esult [facility] ([facility]) [address] [place] [address], [facility] [address] [place] [address], * (ABNORMAL) Comprehensive metabolic panel (06/17/2025 9:17 AM EST) Pathologist [facility] Glucose 88 65 - 99 mg/dL [facility] [...] 06/18/2025 3:07 AM EST Performed at: [address] [id number] Piggyback Clerk: Evelio Luo MD, Phone: [phone] Patient Fasting: Y Azalea Jones APRN LAB BLOOD ORDERABLES Final R esult [facility] ([facility]) [address] [place] [address], [facility] [address] [place] [address], * MAMMO Scan (05/15/2025) Anatomical Region Laterality Modality Other Xavier Esposito MD CHART REVIEW TABS Fin al Result from Last 3 Months Insurance [place]ICAID [place] Care Teams Shank Breaker Relationship Specialty Start Date End Date Xavier Esposito MD [address] [place] [address] [place] [address] PCP - General Family Medicine 09/24/24
--- OUTSIDE RECORDS SUMMARY | 2025-07-09 17:25 | XMS_ITS | Encounter Summary ---
Author Organization [facility] Address [address] [place] [address] Care Team Providers Care Whizzer Operator Name Role Phone Perry Hicks MD Primary Care Provider [phone] Renard Garcia MD Unavailable [phone] MaheshYohana DO Unavailable [phone] Yvette Velarde AUDIO VISUAL MANAGER Unavailable [phone] Pcp, No Primary Care Provider Unavailabl Carolina Lawrence CORROSION CONTROL FITTER Unavailable Unavailable Pcp, No Primary Care Provider Unavailabl e Xavier Esposito MD Primary Care Provider [phone] Encounter Details Date Type Department Care Team (Late st Contact Info) Description 11/01/2022 Lab Requisition [facility] [address] [place] [address] Santiago England MD [address] [facility] [address] [place] [address] Atypical squamous cells of undetermined [...] Description 08/09/2025 12:20 PM EST Office Visit [facility] [address] [place] [address] Leanne Burks MD [address] [facility] [address] [place] [address] documented as of this encounter Procedures Procedure Name Priority Date/Time Associated Diagnosis Comments CYTOLOGY CONSULT 11/01/2022 11:2 1 AM EDT Atypical squamous cells of undetermined significance on cytologic smear of cervix (ASC-US) documented in this encounter Results * Cytology Consult (11/01/2022 11:21 AM EDT) Case Report Cytology Case: [id number] Authorizing Provider: Santiago England MD Collected: 11/01/2022 1121 Ordering Location: [facility] Lab Received: 11/01/2022 112 Pathologist: Alayna Vaca MD Specimen: Vaginal, [id number] 11/02/2022 11:55 AM EDT [facility] Final Diagnosis A. VAGINAL PAP SMEAR (OUTSIDE CASE [id number], COLLECTED 08/25/2022) - LOW GRADE SQUAMOUS INTRAEPITHELIAL LESION (LSIL), SEE COMMENT. 11/02/2022 11:55 AM EDT [email or web address] at 1155 EDT Comment Refer to surgical case [id number] for subsequent biopsy results. 11/02/2022 11:55 AM EDT [facility] Clinical Information R87.610 - Atypical squamous cells of undetermined significance on cytologic smear of cervix (ASC-US) [ICD-10-CM] 11/02/2022 11:55 AM EDT [facility] Gross Description A. [id number] For clinical data and diagnosis (LSIL) for this specimen ([id number]) see final report issued by [facility] Pathology Department. 11/02/2022 11:55 AM EDT [facility] Vaginal structure / Unknown 11/01/2022 11:21 AM EDT 11/01/2022 11:22 AM EDT us Santiago England MD LAB PATHOLOGY ORDERABLES Final Result [facility] [address] [place] [address] documented in this encounter Visit Diagnoses Diagnosis [...] documented as of this encounter Care Teams Whizzer Operator Relationship Specialty Start Date End Date Perry Hicks MD [address] [place] [address] PCP - General 12/05/20 11/09/23 Pcp, No [address] [place] [address] PCP - General Family Medicine 11/10/23 01/28/25 Pcp, No [address] [place] [address] PCP - General Family Medicine 01/29/25 05/13/25 Xavier Esposito MD [address] [place] [address] PCP - General 05/14/25 Renard Garcia MD [address] [facility] [address] [place] [address] Surgeon Neurosurgery 11/25/21 Yohana Aragon DO [facility] [address] Obstetrics and Gynecology 10/22/22 Yvette Velarde APRN [address] [place] [address] Nurse Practitioner Neurosurgery 11/10/23 Carolina Aquino, MITALI VALUE-BASED [place] [address] None [facility] Nurse 09/13/24 10/12/24 documented as of this encounter
--- OUTSIDE RECORDS SUMMARY | 2025-07-09 17:25 | XMS_ITS | Encounter Summary ---
Author Organization [facility] Address [address] [place] [address] Care Team Providers Care Housekeeping Laundry Worker Name Role Phone Xavier Esposito MD Primary Care Provider + Reason for Visit * Reason Onset Date Comments Med Refill 06/18/2025 Encounter Details Date Type Department Care Team (Late st Contact Info) Description 06/18/2025 Telephone [facility] FAMILY MEDICINE [address] [place] [address] Xavier Esposito MD [address] [place] [address] Med Refill Social History Tobacco Use Types Packs/Day Years [...] encounter Miscellaneous Notes * Telephone Encounter - Radha Parra RegSched Rep - 06/18/2025 11:48 AM EST Caller: Tonya Kamara Relationship: Self Best call back number: [phone] Requested Prescriptions: HYDROcodone-acetaminophen (NORCO) 10-325 MG per tablet Pharmacy where request should be sent: [facility] [place] [address] [address] - [phone] PH - [phone] FX Last office visit with prescribing clinician: 04/22/2025 Last telemedicine visit with prescribing clinician: Visit date not found Next office visit with prescribing clinician: Visit date not found Additional details provided by patient: STATES THAT SHE IS NOT ABLE TO GET MEDICATION [facility]. REQUESTING TO HAVE PCP FILL UNTIL SHE IS ABLE TO GO TO HER NEW PAIN MANAGEMENT Does the patient have less than a 3 day supply: [x] Yes [] No Would you like a call back once the refill request has been completed: [] Yes [x] No If the office needs to give you a call back, can they leave a voicemail: [] Yes [x] No Kamron Pierce 06/18/25 11:49 EST documented in this encounter Plan of Treatment Not on file documented as of this encounter Visit Diagnoses Not on filedocumented in this encounter Care Teams Housekeeping Laundry Worker Relationship Specialty Start Date End Date Xavier Esposito MD [address] [facility] [place] [place] [address] PCP - General Family Medicine 09/24/24 documented as of this encounter
--- OUTSIDE RECORDS SUMMARY | 2025-07-09 17:25 | XMS_ITS | Encounter Summary ---
Author Organization [facility] Address [address] [place] [address] Care Team Providers Care Hat Band Attacher Name Role Phone Xavier Esposito MD Primary Care Provider + Reason for Visit * Reason Comments Med Refill Encounter Details Date Type Department Care Team (Late st Contact Info) Description 07/01/2025 Refill [facility] FAMILY MEDICINE [address] [place] [address] Xavier Esposito MD [address] [place] [address] Gastroesophageal reflux disease without esophagitis [...] reflux documented in this encounter Care Teams Hat Band Attacher Relationship Specialty Start Date End Date Xavier Esposito MD [address] [place] [address] PCP - General Family Medicine 09/24/24 documented as of this encounter
--- OUTSIDE RECORDS SUMMARY | 2025-07-09 17:25 | XMS_ITS | Encounter Summary ---
Author Organization [facility] Address [address] [place] [address] Care Team Providers Care Malt House Supervisor Name Role Phone Xavier Esposito MD Primary Care Provider + Encounter Details Date Type Department Care Team (Latest Contact Info) Description 06/17/2025 Travel Social History Tobacco Use Types Packs/Day [...] on filedocumented in this encounter Care Teams Malt House Supervisor Relationship Specialty Start Date End Date Xavier Esposito MD [address] [place] [address] PCP - General Family Medicine 09/24/24 documented as of this encounter
--- OUTSIDE RECORDS SUMMARY | 2025-07-09 17:25 | XMS_ITS | Encounter Summary ---
Author Organization [facility] Address [address] [place] [address] Care Team Providers Care Switching Operator Name Role Phone Xavier Esposito MD Primary Care Provider + Reason for Visit * Reason Onset Date Comments Medication Problem 06/17/2025 Encounter Details Date Type Department Care Team (Late st Contact Info) Description 06/17/2025 Refill [facility] [address] [place] [address] Xavier Esposito MD [address] [place] [address] Social History Tobacco Use Types [...] encounter Miscellaneous Notes * Telephone Encounter - Sarah Comer RegSched Rep - 06/19/2025 11:34 AM EST SPOKE WITH PATIENT AND RELAYED MESSAGE THAT MEDICATION WILL NOT BE FILLED BY OUR OFFICE * Telephone Encounter - Azalea Jones APRN - 06/18/2025 10:08 AM EST Please inform patient that this medication will not be prescribed from this office. She will have to reach out to her prior pain management while she is changing offices closer to home. * Telephone Encounter - Betsey Hernandez RegSched Rep - 06/17/2025 11:50 AM EST Caller: Tonya Kamara Relationship: Self Best call back number: [phone] Requested Prescriptions: Requested Prescriptions Pending Prescriptions Disp Refills HYDROcodone-acetaminophen (NORCO) 7.5-325 MG per tablet 0 Sig: Take 1 tablet by mouth 3 (Three) Times a Day. Pharmacy where request should be sent: [facility] - [place] [address] [address] - [phone] [facility] [phone] FX Last office visit with prescribing clinician: 04/22/2025 Last telemedicine visit with prescribing clinician: Visit date not found Next office visit with prescribing clinician: Visit date not found Additional details provided by patient: PLEASE CALL PATIENT IF THIS CAN NOT BE SENT IN, PATIENT IS WAITING TO BE SCHEDULED FOR PAIN MANAGEMENT Does the patient have less than a 3 day supply: [x] Yes [] No Would you like a call back once the refill request has been completed: [] Yes [x] No If the office needs to give you a call back, can they leave a voicemail: [] Yes [x] No Kamron Deshpande 06/17/25 11:51 EST documented in this encounter Plan of Treatment Not on file documented as of this encounter Visit Diagnoses Not on filedocumented in this encounter Care Teams Switching Operator Relationship Specialty Start Date End Date Xavier [place] [address] PCP - General Family Medicine 09/24/24 documented as of this encounter
--- OUTSIDE RECORDS SUMMARY | 2025-07-09 17:25 | XMS_ITS | Encounter Summary ---
Author Organization [facility] Address [address] [place] [address] Care Team Providers Care Hand Edger Name Role Phone Perry Hicks MD Primary Care Provider [phone] Renard Garcia MD Unavailable [phone] MaheshYohana DO Unavailable [phone] Yvette Velarde COMPUTER OPERATOR Unavailable [phone] Pcp, No Primary Care Provider Unavailabl Carolina Lawrence BARN BOSS Unavailable Unavailable Pcp, No Primary Care Provider Unavailabl e Xavier sEposito MD Primary Care Provider [phone] Encounter Details Date Type Department Care Team (Late st Contact Info) Description 11/01/2022 Lab Requisition [facility] [address] [place] [address] Santiago England MD [address] [facility] [address] [place] [address] Atypical squamous cells of undetermined [...] Description 08/09/2025 12:20 PM EST Office Visit [facility] [address] [place] [address] Leanne Burks MD [address] [facility] [address] [place] [address] documented as of this encounter Procedures Procedure Name Priority Date/Time Associated Diagnosis Comments SURGICAL PATHOLOGY CONSULT Routine 11/01/2022 12:43 PM EDT Atypical squamous cells of undetermined significance on cytologic smear of cervix (ASC-US) documented in this encounter Results * Surgical Pathology Consult (11/01/2022 12:43 PM EDT) Case Report Sugical Pathology Consult Case: [id number] Authorizing Provider: Santiago England MD Collected: 11/01/2022 1243 Ordering Location: [facility] Lab Received: 11/01/2022 1243 Pathologist: Namrata Travis MD Specimen: Vaginal, [id number] 11/04/2022 9:18 AM EDT [facility] Final Diagnosis A. VAGINAL CUFF, 3:00 AND 9:00, BIOPSIES (OUTSIDE SLIDES [id number], 10/06/22): - FRAGMENTS OF PREDOMINANTLY CERVICAL STROMA WITH MINUTE FRAGMENTS OF CAUTERIZED SQUAMOUS EPITHELIUM - NO EVIDENCE OF HIGH GRADE DYSPLASIA OR CARCINOMA 11/04/2022 9:18 AM EDT [facility] at 0918 EDT Comment There is minimal intact epithelium available for review. Therefore these findings may not be malt liquors sales representative of the mucosal process. Clinical correlation, with potential rebiopsy, is suggested. 11/04/2022 9:18 AM EDT [facility] Clinical Information R87.610 - Atypical squamous cells of undetermined significance on cytologic smear of cervix (ASC-US) [ICD-10-CM] 11/04/2022 9:18 AM EDT [facility] Gross Description A. [id number] Received along with a corresponding pathology report from [facility] are 2 slide(s) labeled outside case: [id number] collected on 10/06/2022. 11/04/2022 9:18 AM EDT [facility] Note: A resident was involved in the service. I attest I examined the relevant preparations for the specimens and confirmed the diagnosis or interpretation. 11/04/2022 9:18 AM EDT [facility] Tissue Vaginal structure / Unknown 11/01/2022 12:43 PM EDT 11/01/2022 12:43 PM EDT us Santiago England MD LAB PATHOLOGY ORDERABLES Final Result [facility] [address] [place] [address] documented in this encounter Visit Diagnoses Diagnosis [...] documented as of this encounter Care Teams Hand Edger Relationship Specialty Start Date End Date Perry Hicks MD [address] [place] [address] PCP - General 12/05/20 11/09/23 Pcp, No [address] [place] [address] PCP - General Family Medicine 11/10/23 01/28/25 Pcp, No [address] [place] [address] PCP - General Family Medicine 01/29/25 05/13/25 Xavier Esposito MD [address] [place] [id number] PCP - General 05/14/25 Renard Garcia MD [address] [place] [address] Surgeon Neurosurgery 11/25/21 Yohana Aragon DO [address] [id number] Obstetrics and Gynecology 10/22/22 Yvette Velarde, COMPUTER OPERATOR [address] [place] [address] Nurse Practitioner Neurosurgery 11/10/23 Carolina Aquino LPN [employer] [place] [address] None [facility] Nurse 09/13/24 10/12/24 documented as of this encounter
--- OUTSIDE RECORDS SUMMARY | 2025-07-09 17:25 | XMS_ITS | Encounter Summary ---
Author Organization [facility] Address [address] [place] [address] Care Team Providers Care Winch Driver Name Role Phone Xavier Esposito MD Primary Care Provider + Encounter Details Date Type Department Care Team (Late st Contact Info) Description 06/18/2025 Results Follow-Up [facility] [address] [place] [address] Azalea Jones, LUBE WORKER [address] [place] [address] Social History Tobacco Use Types [...] on filedocumented in this encounter Care Teams Winch Driver Relationship Specialty Start Date End Date Xavier Esposito MD [address] [place] [address] PCP - General Family Medicine 09/24/24 documented as of this encounter
--- NOTE | 2025-07-09 17:27 | ED_ITS ---
<Statement entered by Alisson Mcmanus DO - 07/09/25 23:01> I was consulted by the PITA, and we discussed the complexity of problems being addressed. I approve the treatment and management plan for this patient's care in the emergency department, thus performing a substantial portion of the medical decision making. Alisson Mcmanus DO Discharge Plan Disposition Patient Disposition: Home, Self-Care Prescriptions Prescriptions: No Action ketotifen fumarate [Eye Itch Relief] 0.025 % (0.035 %) drops Eye-Both Patient Comments: INSTILL 1 DROP INTO AFFECTED EYE 2 TIMES A DAY FOR 10 DAYS prednisone 20 mg tablet 20 mg PO Patient Comments: TAKE 1 TABLET BY MOUTH 2 TIMES A DAY hydrocodone-acetaminophen 7.5-325 mg tablet 1 tab PO Patient Comments: TAKE 1 TABLET BY MOUTH 3 TIMES A DAY gabapentin 300 mg capsule 300 mg PO Patient Comments: TAKE 1 CAPSULE BY MOUTH 4 TIMES A DAY albuterol sulfate 90 mcg/actuation HFA aerosol inhaler 1 inh inhalation Q6HP PRN (Reason: Shortness Of Breath) duloxetine 30 mg capsule,delayed release(DR/EC) 30 mg PO DAILY Qty: 30 2RF omeprazole 40 mg capsule,delayed release(DR/EC) 40 mg PO DAILY Qty: 90 1RF clonazepam [Klonopin] 0.5 mg tablet 0.25 mg PO BID 7 Days Qty: 7 0RF aspirin 81 mg tablet,delayed release (DR/EC) See Rx Instructions .ROUTE .COMPLEX Qty: 30 3RF Dose Instruction: TAKE 1 TABLET BY MOUTH ONCE A DAY Rx Instructions: TAKE 1 TABLET BY MOUTH ONCE A DAY benzonatate 100 mg capsule See Rx Instructions .ROUTE .COMPLEX Qty: 60 3RF Dose Instruction: TAKE 1 CAPSULE BY MOUTH THREE TIMES DAILY NEEDED FOR cough Rx Instructions: TAKE 1 CAPSULE BY MOUTH THREE TIMES DAILY NEEDED FOR cough loperamide 2 mg capsule See Rx Instructions .ROUTE .COMPLEX Qty: 30 0RF Dose Instruction: TAKE 3 CAPSULES BY MOUTH 2 TIMES A DAY NEEDED FOR LOOSE STOOL Rx Instructions: TAKE 3 CAPSULES BY MOUTH 2 TIMES A DAY NEEDED FOR LOOSE STOOL promethazine 25 mg tablet 25 mg PO BIDP PRN (Reason: Nausea And Vomiting) albuterol sulfate 2.5 mg /3 mL (0.083 %) solution for nebulization 5 mg inhalation Q6HP PRN (Reason: Shortness Of Breath Or Wheezing) Patient Comments: INHALE CONTENTS OF 2 VIALS VIA NEBULIZER EVERY 6 HOURS NEEDED FOR SHORTNESS OF BREATH OR WHEEZING umeclidinium-vilanterol [Anoro Ellipta] 62.5-25 mcg/actuation blister with device 1 inh INHALATION DAILY Patient Comments: INHALE 1 PUFF BY MOUTH ONCE A DAY hydrocodone-acetaminophen 10-325 mg tablet 1 tab PO Q8HP PRN (Reason: Severe Pain (Scale Score 7-10)) levothyroxine 25 mcg tablet 25 mcg PO DAILYDM Rx Instructions: TAKE ONE TABLET BY MOUTH ONCE A DAY FOR THYROID hydrocortisone-aloe vera [Anti-Itch(hydrocortisone)-Aloe] 1 % cream 1 applic topical TIDP PRN (Reason: skin irritation) fluticasone propionate 50 mcg/actuation spray,suspension 1 spray INTRANASAL BID atorvastatin 40 mg Tablet 80 mg PO HS 30 Days Qty: 60 0RF Referrals Follow up/Referrals: Xavier Esposito MD [Primary Care Provider, Medical] - See instructions Activity Restrictions/Add. Instructions Additional Instructions/Restrictions: Today you were evaluated in the emergency department for for chest pain, your workup was overall unremarkable. Please follow-up with your PCP within 2 days. Please return to the ED for worsening of condition. Clinical Impressions Clinical Impression: Chest pain, Alcohol use Instructions Patient Instructions: DI for Chest Pain Print Language Print Language: Wolof Discharge ED Provider: Alisson Mcmanus General Chief Complaint: Shortness of Breath/Dyspnea Stated Complaint: SOB Time Seen by Provider: 07/09/25 17:20 History of Present Illness HPI narrative: pt is a 54 year old female PMHx frequent chest pain, palpitations, anxiety, history of alcohol abuse, frequent ED visits, who presents to the ED today complaints of centrally located chest pain and shortness of breath. Patient states her chest pain started approximately 48 hours ago and has been persistent since then. She reports that the chest pain radiates down into both legs, reports that she has difficulty walking. Patient denies substance use, alcohol use. Related Data Home Medications ?Medication ?Instructions ?Recorded ?Confirmed promethazine 25 mg tablet 25 mg PO BIDP PRN Nausea And 07/24/24 05/10/25 Vomiting albuterol sulfate 90 mcg/actuation 1 inh inhalation Q6 HP PRN 11/22/24 05/10/25 aerosol inhaler Shortness Of Breath albuterol sulfate 2.5 mg/3 mL 5 mg inhalation Q6HP PRN Shortness 03/10/25 05/10/25 (0.083 %) solution for nebulization Of Breath Or Wheez ing fluticasone propionate 50 1 spray intranasal BID 03/1005/10/25 mcg/actuation nasal spray,suspension hydrocodone 10 mg-acetaminophen 1 tab PO Q8HP PRN Lynda re Pain 03/10/25 05/10/25 325 mg tablet (Scale Score 7-10) hydrocortisone-aloe vera 1 % 1 applic topical TIDP PRN skin 03/10/25 05/10/25 topical cream (Anti-Itch irritation (hydrocortisone) with Aloe) levothyroxine 25 mcg tablet 25 mcg PO DAILYDM 03/10/25 05/10/25 umeclidinium 62.5 mcg-vilanterol 1 inh inhalation JANICE Y 03/10/25 05/10/25 25 mcg/actuation powdr for inhalation (Anoro Ellipta) gabapentin 300 mg capsule 300 mg PO 04/25/25 05/10/25 hydrocodone 7.5 mg-acetaminophen 1 tab PO 04/25/25 325 mg tablet ketotifen fumarate 0.025 % (0.035 drp Eye-Both 5 05/10/25 %) eye drops (Eye Itch Relief) prednisone 20 mg tablet 20 mg PO 04/25/25 05/10/25 Previous Rx's ?Medication ?Instructions ?Recorded omeprazole 40 mg capsule,delayed 40 mg PO DAILY #90 ca ps 01/07/25 release atorvastatin 40 mg tablet 80 mg (2 x 40 mg) PO HS 30 d ays 03/12/25 #60 tabs clonazepam 0.5 mg tablet (Klonopin) 0.25 mg (1/2 x 0.5 mg) PO BID 7 04/04/25 days #7 tabs aspirin 81 mg tablet,delayed See Rx Instructions .Rout e 05/08/25 release .COMPLEX #30 tabs duloxetine 30 mg capsule,delayed 30 mg PO DAILY #30 ca ps 05/10/25 release benzonatate 100 mg capsule See Rx Instructions .Route 05/21/25 .COMPLEX #60 caps loperamide 2 mg capsule See Rx Instructions .Route 1 .COMPLEX #30 caps Allergies Allergy/AdvReac Type Severity Reaction Status Date / Time latex Allergy Severe Rash Verified 05/10/25 10:33 lidocaine Allergy Intermediate Red, Rash, Verified 05/10/25 10:33 Itching codeine (CODEINE) Allergy Unknown VOMITING Verified 05/10/25 10:33 erythromycin base Allergy Unknown ITCHING/HIV Verified 05/10/25 10:33 (ERYTHROMYCIN BASE) ES Penicillins (PENICILLINS) Allergy Unknown VOMITING Verified 05/10/25 10:33 ibuprofen Allergy Hives Verified 05/10/25 10:33 Iodinated Contrast Media Allergy Anaphylaxis Verified 05/10/25 10:33 tramadol AdvReac Hives Verified 05/10/25 10:33 PFSH PFSH Disclaimer: The information contained in this section may have been updated after the patient was seen, as this information can be updated by other users. Medical History Hyperlipidemia Chest pain Asthma Hypothyroid Anxiety disorder Chronically on benzodiazepine therapy Chronic, continuous use of opioids DJD (degenerative joint disease) of cervical spine Alcohol use disorder History of ovarian cancer Colon cancer LGSIL Pap smear of vagina Lumbar disc disease with radiculopathy Surgical History History of cranial surgery Hx of neck surgery cervical History of hysterectomy History of cholecystectomy Family History Other Anemia Asthma Cancer Coronary artery disease Diabetes Family history of bronchitis Family history of myocardial infarction Family history of stroke Heart attack Hyperlipidemia Hypertension Kidney disease Stroke Thyroid disorder Social History Smoking Status: Current every day smoker tobacco type: smokeless tobacco second hand exposure: No alcohol intake: former substance use type: denies use current occupational status: disabled Travel in the last 8 weeks?: None household members: none housing: house lives independently: Yes marital status: single number of children: 3 education level: high school current occupational exposures/hazards: No caffeine: No special christopher needs: No agree to transfusion: No do you feel safe at home: Yes victim of physical abuse: No victim of emotional abuse: No victim of sexual abuse: No would you like helpful sources: No Have you lived/traveled outside US in past 30 days?: No Contact w/someone who lives/traveled outside US past 30 days?: No Exposure to someone with infectious disease in past 14 days?: No Do you have a fever (greater than 100.4 F or 38 C)?: No Have you tested positive for COVID-19?: No Exposed to someone with COVID-19 in past 14 days?: No Do you have a sore throat?: No Do you have a cough?: No Do you have any weakness?: No Do you have any diarrhea?: No Are you experiencing any unusual bleeding?: No Do you have any muscle aches/pain?: No Do you have any abdominal pain?: No Are you experiencing loss of taste or smell?: No Other Medical History Have you received the Flu Vaccine for this season: No Have you received the Pneumonia Vaccine: No ROS Obtained: Yes Systems reviewed as appropriate & no additional complaints except as documented Physical Exam General General appearance: alert Head Head exam: atraumatic Eye Eye exam: Present PERRL Neck Neck exam: Present full ROM Chest Chest inspection: Present normal inspection Respiratory Respiratory exam: Present normal lung sounds bilaterally Cardiovascular Cardiovascular exam: Present tachycardia Abdominal Exam Abdominal exam: Present soft Extremities Exam Extremities exam: Present full ROM Neurological Exam Neurological exam: Present alert and oriented X3 Skin Skin exam: Present warm and dry HEART Score HEART Score HEART Score assessment performed?: Yes History (anamnesis): Slightly suspicious ECG: Normal Age: 45-65 years Risk factors: 1-2 risk factors Troponin: </= normal limit HEART Score: 2 Critical Care Critical Care Time Critical Care Time: No Medical Decision Making [place] Inquiry Pt receiving controlled substance: No Vital Signs Vital Signs: 07/09/25 17:30 07/09/25 17:30 07/09/25 18:00 Temperature 98.3 F Temperature Source Oral Pulse Rate 92 H 96 H Pulse Rate [Right Radial] 95 H Respiratory Rate 18 17 25 H Blood Pressure 158/93 H Blood Pressure [Right Arm] 149/96 H Blood Pressure Mean [Right Arm] 113 Blood Pressure Source Blood Pressure Source [Right Arm] Automatic Cuff Blood Pressure Position Blood Pressure Position [Right Arm] Sitting 02 Sat by Pulse Oximetry 99 96 95 Oxygen Delivery Method Room Air 07/09/25 18:07 07/09/25 18:30 07/09/25 20:53 Temperature 97.8 F Temperature Source Oral Pulse Rate 94 H 102 H 86 Pulse Rate [Right Radial] Respiratory Rate 19 17 16 Blood Pressure 146/91 H 141/80 H Blood Pressure [Right Arm] Blood Pressure Mean [Right Arm] Blood Pressure Source Automatic Cuff Blood Pressure Source [Right Arm] Blood Pressure Position Sitting Blood Pressure Position [Right Arm] 02 Sat by Pulse Oximetry 97 96 Oxygen Delivery Method Room Air Lab Data Labs: Lab Results 07/09/25 17:24: WBC 6.5, RBC 4.00 L, Hgb 11.8 L, Hct 36.3 L, MCV 90.8, MCH 29.5, MCHC 32.5, RDW 14.6, Plt Count 322, MPV 9.2, Neut % (Auto) 47.4, Lymph % (Auto) 44.2, [place] % (Auto) 7.4, Eos % (Auto) 0.3, Baso % (Auto) 0.5, Neut # (Auto) 3.1, Lymph # (Auto) 2.9, [place] # (Auto) 0.5, Eos # (Auto) 0.0, Baso # (Auto) 0.0, PT 10.8, INR 0.97, APTT 24.5, Sodium 136, Potassium 3.7, Chloride 104, Carbon Dioxide 19 L, Anion Gap 16.7 H, BUN 10, Creatinine 0.70, Estimated Creat Clear 88, Estimated GFR 88, Est GFR ( Amer) 106, Glucose 101 H, Calcium 9.9, Magnesium 1.8, Total Bilirubin 0.7, AST 50 H, ALT 18, Alkaline Phosphatase 122, Troponin I < 0.01, NT-Pro-B Natriuret Pep 73.1, Total Protein 8.8 H, Albumin 5.1 H, Globulin 3.7 H, Albumin/Globulin Ratio 1.4, Plasma/Serum Alcohol 190 H 07/09/25 17:25: VBG pH 7.37, VBG pCO2 38.2, VBG pO2 62.5 H, VBG HCO3 21.3 L, VBG Total CO2 22.5 L, VBG O2 Saturation 89.1 H, VBG Base Excess -4.0 L, VBG Lactic Acid 2.3 H 07/09/25 17:54: Urine Color Yellow, Urine Appearance Clear, Urine pH 6.0, Ur Specific [place] <= 1.005, Urine Protein Negative, Urine Glucose (UA) Negative, Urine Ketones Negative, Urine Blood Negative, Urine Nitrate Negative, Urine Bilirubin Negative, Urine Urobilinogen 0.2, Ur Leukocyte Esterase Negative, Urine RBC Occasional, Urine WBC 5-10, Ur Squamous Epith Cells 3-5, Urine Bacteria 3+, Urine HCG, Qual Negative, Urine Opiates Screen Negative, Urine Methadone Screen Negative, Ur Barbituates Screen Negative, Ur Phencyclidine Scrn Negative, Ur Amphetamines Screen Negative, U Benzodiazepines Scrn Negative, Urine Cocaine Screen Negative, U Marijuana (THC) Screen Negative 07/09/25 17:24 07/09/25 17:24 Response Orders (Tests/Meds): ED MEDICATIONS Generic Name Dose Route Start Last Admin Trade Name Freq PRN Reason Stop Dose Admin Multivitamins 10 ml/ Thiamine 1,015 mls @ 125 mls/hr 07/09/25 18:45 07/09/25 19:38 HCl 100 mg/ Magnesium Sulfate IV 07/10/25 02:52 999 mls/hr 2 gm/ Lactated Ringer's ONCE ONE Administration Discontinued Medications Generic Name Dose Route Start Last Admin Trade Name Freq PRN Reason Stop Dose Admin Morphine Sulfate 4 mg 07/09/25 18:07 07/09/25 18:14 Morphine 4mg/Ml Syringe IV 07/09/25 18:08 4 mg ONCE ONE Administration Ondansetron HCl 4 mg 07/09/25 18:07 07/09/25 18:14 Ondansetron 4mg/2ml Vial IV 07/09/25 18:08 4 mg ONCE ONE Administration ORDERS Category Date Time Status CXR --portable [XR chest portable] Stat Exams 07/09/25 17:20 Completed BNP [NT Pro Brain Natriuretic Pep.] Stat Lab 07/09/25 17:24 Completed CBC w/Auto Diff [Complete Blood Count Auto Diff] Stat Lab 07/09/25 17:24 Completed CMP [Comprehensive Metabolic Panel] Stat Lab 07/09/25 17:24 Completed Ethyl Alcohol Stat Lab 07/09/25 17:24 Completed Magnesium Stat Lab 07/09/25 17:24 Completed PT/PTT Stat Lab 07/09/25 17:24 Completed Trop I [Troponin I] Stat Lab 07/09/25 17:24 Completed Troponin I Q3H Lab 07/09/25 20:30 Ordered Troponin I Q3H Lab 07/09/25 23:30 Ordered UDS [Drug Screen,Urine] Stat Lab 07/09/25 17:54 Completed Urinalysis and Microscopic Stat Lab 07/09/25 17:54 Completed Urine , HCG Qual. Stat Lab 07/09/25 17:54 Completed Urine Culture Stat Micro 07/09/25 17:54 Received VBG [Venous Blood Gas] Stat RT 07/09/25 17:25 Completed MDM Narrative Medical Decision Narrative: In summary, pt is a 54 year old female PMHx frequent chest pain, palpitations, anxiety, history of alcohol abuse, frequent ED visits, who presents to the ED today complaints of centrally located chest pain and shortness of breath. Patient states her chest pain started approximately 48 hours ago and has been persistent since then. She reports that the chest pain radiates down into both legs, reports that she has difficulty walking. Patient denies substance use, alcohol use. Upon initial evaluation she is alert and oriented, she is tachycardic and hypertensive initially. She is crying during exam. She states that her daughter in the ED and that she is having a difficult time being here. She has not had any medication prior to arrival for pain. She states that she has a contrast allergy and gets diphenhydramine administered prior to contrast dye. She states she has taken morphine before without any adverse reaction. She denies headache, visual changes, neck pain, vomiting, dysuria. Differential diagnosis include ACS, dissection, pneumonia, pneumothorax, infectious process, electrolyte abnormality, pulmonary embolism, among others. Will proceed with labs, chest x-ray and symptomatically treat with morphine and Zofran. CBC unremarkable for any leukocytosis, stable H&H. CMP overall unremarkable. Alcohol 198. Chest x-ray unremarkable for any acute process. Upon reassessment, patient states her condition has improved. She has been ambulatory in the ED without difficulty. She is able to tolerate PO. I discussed with her that her workup was negative but we will administer a banana bag due to alcohol 198. She remains alert and oriented. I discussed with her the importance of following up with her PCP within 48 hours. We discussed the importance of returning to the ED for any worsening of her condition. Patient was able to verbalize an understanding.
[2025-07-09 17:36] LABS: VBG HCO3 21.3 mmol/L (23-30); VBG PCO2 38.2 mmol/L (35-51); VBG PH 7.37 mmol/L (7.31-7.41); VBG PO2 62.5 mmol/L (28-40)
[2025-07-09 17:37] LABS: Lactate Venous 2.3 mmol/L (0.4-2.0)
[2025-07-09 17:43] LABS: Hematocrit 36.3 % (37.0-47.0); Hemoglobin 11.8 g/dL (12.2-16.2); Immature Granulocytes % 0.2 %; Mean Corpuscular HGB Conc 32.5 g/dL (31.8-35.4); Mean Corpuscular Hemoglobin 29.5 pg (27.0-31.2); Mean Corpuscular Volume 90.8 fl (81-99); Nucleated Red Blood Cells % 0 %; Platelet Count 322 K/mm3 (142-424); Red Blood Count 4.00 M/mm3 (4.20-5.40); Red Cell Distribution Width-SD 49.0 fL; White Blood Count 6.5 K/mm3 (4.8-10.8)
[2025-07-09 17:59] LABS: Microscopic, Urine URINE MICROSCOPIC (MICROSCOPIC)
[2025-07-09 18:05] LABS: Activated Partial Thrombo Time 24.5 seconds (22.8-30.6); INR 0.97 (0.9-1.1); Prothrombin Time 10.8 seconds (10.1-12.5)
[2025-07-09 18:06] LABS: Alanine Aminotransferase 18 U/L (12-78); Albumin Level 5.1 g/dl (3.5-5.0); Albumin/Globulin Ratio 1.4 (1.1-1.8); Alkaline Phosphatase 122 U/L (38-126); Anion Gap 16.7 mEq/L (5-15); Aspartate Amino Transferase 50 U/L (14-36); Bilirubin,Total 0.7 mg/dl (0.2-1.3); Blood Urea Nitrogen 10 mg/dl (7-17); Calcium 9.9 mg/dl (8.4-10.2); Carbon Dioxide 19 mmol/L (22.0-30.0); Chloride 104 mmol/L (98-107); Creatinine Clearance Estimated 88 mL/min (50-200); Creatinine,Serum 0.70 mg/dl (0.52-1.04); Estimated Glomerular Filt Rate 88 ml/min (>60); GFR (African American) 106 ML/MIN (>60); Globulin 3.7 g/dL (1.3-3.2); Glucose 101 mg/dl (74-100); Magnesium 1.8 mg/dl (1.6-2.3); Potassium 3.7 mmoL/L (3.5-5.1); Sodium 136 mmol/L (136-145); Total Protein,Serum 8.8 g/dl (6.3-8.2)
[2025-07-09 18:09] LABS: Urine Pregnancy, HCG Qual. Negative (Negative)
[2025-07-09 18:10] LABS: Bilirubin,Urine Negative (Negative); Color,Urine YELLOW (Yellow); Glucose,Urine (UA) Negative (Negative); Ketones,Urine Negative (Negative); Leukocyte Esterase,Urine Negative (Negative); PH,Urine 6.0 (5.0-8.5); Protein,Urine Negative (Negative); Specific Gravity, Urine <= 1.005 (1.005-1.030); Urobilinogen,Urine 0.2 EU/dl (0.2)
[2025-07-09] MEDS: ONDANSETRON 4MG/2ML VIAL 4 MG IV (18:14)
[2025-07-09] MEDS: MORPHINE 4MG/ML SYRINGE 4 MG IV (18:14)
[2025-07-09 18:17] LABS: NT Pro Brain Natriuretic Pep. 73.1 pg/mL (0-125)
[2025-07-09 18:20] LABS: Barbiturates Screen,Urine Negative ng/ml (<200)
[2025-07-09 18:21] LABS: Benzodiazepines Screen,Urine Negative ng/ml (<200)
[2025-07-09 18:22] LABS: Amphetamine/Metha Screen,Urine Negative ng/ml (<1000)
[2025-07-09 18:24] LABS: Methadone Screen,Urine Negative ng/ml (<300); Opiate Screen,Urine Negative ng/ml (<300)
[2025-07-09 18:25] LABS: Phencyclidine Screen,Urine Negative ng/ml (<25)
[2025-07-09 18:27] LABS: Troponin I < 0.01 ng/ml (0.00-0.034)
--- NOTE | 2025-07-09 18:32 | PC.NURSE ---
patient initially reports she does not drink, asked again and she reports she drank a beer and a half yesterday
[2025-07-09 18:35] LABS: RBC,Urine Occasional #/hpf (0-3)
[2025-07-09 18:36] LABS: Bacteria,Urine 3+ /lpf
[2025-07-09] MEDS: MVI, ADULT NO.1 WITH VIT K 10 ML, THIAMINE HCL 100 MG, MAGNESIUM SULFATE 2 GM in LACTAT... 999 ML IV (19:38)
[2025-07-09 21:37] LABS: Reflex Lactic Add Lactic Reflex
--- NOTE | 2025-07-12 11:48 | PC.NURSE ---
Patient called requesting a letter stating she did not have COVID, Flu and stating that she is not contagious. Educated patient that I could not fill this request because she was not tested for any of those while here in the ER. Patient stated that she needed it in order to be seen at her pain management clinic today. Patient gave this nurse the number to her pain management clinic. Spoke with staff there and told them I was unable to give that note because we did not test her for any of those virus'. They stated that she called and told them she had that flu that is going around so they requested info proving that she did not have those illnesses. Pain management requested this nurse to tell the patient that they will need that information in order for her to be seen today. Attempted to call patient back with no answer.
== END 2025-07-09 21:06 | disposition home or self-care (01) ==
PROVIDERS: Nurse Practitioner; Emergency Provider Student in an Organized Health Care Education/Training Program; PCP Family Medicine
DX: R07.9 Chest pain, unspecified (principal); R06.02 Shortness of breath; F10.129 Alcohol abuse with intoxication, unspecified; R74.02 Elevation of levels of lactic acid dehydrogenase [LDH]; F17.290 Nicotine dependence, other tobacco product, uncomplicated; Y90.7 Blood alcohol level of 200-239 mg/100 ml
CPT/HCPCS: 71045; 80053; 80307; 80320; 81001; 81025; 82803; 83735; 83880; 84484; 85025; 85610; 85730; 87077; 87086; 93005; 96365; 96366; 96375; 99285; J2270; J2405; J3411; J3475; J7120